=== PATIENT | female | born 1975 | race Caucasian/White ===

== ENCOUNTER 2021-11-06 19:26 | Emergency (ER) | payer OTHER, SELFPAY ==
[2021-11-06 19:38] VITALS: BP 135/78; PULSE 84; RESP 18; TEMP 36.7; O2SAT 99; BMI 23.2
--- NOTE | 2021-11-06 20:24 | CRLHL7_ITS ---
For Patients: As a result of the Cures Act, medical imaging exams and procedure reports are released immediately into your electronic medical record. You may view this report before your referring provider. If you have questions, please contact your health care provider. Indication: Fall from horse, left sacroiliac junction pain.. Technique: Three views of the sacrum and coccyx. Comparison: None. Findings: Bones: Possible subtle nondisplaced fracture of the left sacral ala.. Joint spaces: Joint spaces are preserved. No significant degenerative changes. Soft tissues: Unremarkable. Impression: Possible subtle nondisplaced fracture of the left sacral ala. Consider further evaluation with CT of the pelvis.. Dictated by Shirley Chin MD @ 11/06/2021 9:37:53 PM (Electronically Signed)
--- NOTE | 2021-11-06 20:24 | CRLHL7_ITS ---
For Patients: As a result of the Cures Act, medical imaging exams and procedure reports are released immediately into your electronic medical record. You may view this report before your referring provider. If you have questions, please contact your health care provider. Indication: Fall from horse. Technique: Pelvis 1 view. Comparison: None. Findings: Bones: Alignment is normal. No fractures or bone lesions. Joint spaces: Joint spaces are preserved. No degenerative changes. Soft tissues: Unremarkable. Impression: No findings to explain pain. Dictated by Shirley Chin MD @ 11/06/2021 9:38:53 PM (Electronically Signed)
--- NOTE | 2021-11-06 20:29 | ED.BACK ---
HPI - Back Pain/Injury General Chief Complaint: Back Injury/Pain Stated Complaint: Lower back pain; fell off horse Time Seen by Provider: 11/06/21 20:05 History of Present Illness HPI Narrative: 46-year-old woman presenting with significant other to the emergency department complaint of left buttock area pain. She recently fell from a horse landing on her left buttock area. Has been initially says that she was complaining of tingling S into her legs though she says it was her arms as well. Had trouble getting up being standing afterwards having to make a couple of efforts after laying on the ground trying to get herself together. Did experience nausea. Ears were ringing. She does not believe that there was loss consciousness. She was helmeted and did not hit her head. is some concerns about potential concussion. She is not having back pain. No neck pain. No headache. Any movement really causes tremendous pain in the left buttock area. No abdominal pain. Anxious shaking a little bit and anxiety. Apparently has had tremendous trouble with constipation from opiates historically though with further questioning there are number extenuating circumstances and lots of medications. Does note a history of chronic back pain in the upper ?butt crack? area since a prolonged flight. I do manage to view the video this fall. Looks like the horse got spooked.. Otherwise appears to be relatively minor fall on collapsing onto right hip and right side. Did look to stay on the ground for a time. Related Data Home Medications Medication Instructions Recorded Confirmed No Known Home Medications 11/06/21 11/06/21 Allergies Allergy/AdvReac Type Severity Reaction Status Date / Time No Known Drug Allergies Allergy Verified 11/06/21 19:41 Review of Systems Status of ROS: Reports: 6 or more systems reviewed and unremarkable except as noted in History and below [facility] Medical History Asthma Asymptomatic HIV infection Malignant neoplasm of overlapping sites of right breast in female, estrogen receptor positive Osteopenia Plantar fasciitis Surgical History History of hysterectomy Social History Smoking Status: Never smoker Do you use any of these nicotine containing products: None Second hand tobacco smoke exposure: No How often do you have a drink containing alcohol: never How often do you have six or more drinks on one occasion: Never AUDIT-C Alcohol total score: 0 Non-prescribed substance use: denies use Exam Narrative: Exam Narrative: Pleasant. Clearly uncomfortable. Breathing easily. Generally a little tremulous. Cranial nerves 2-12 intact. Head is atraumatic. Speaking easily. Moving upper extremities without difficulty. Lungs are clear. Cardiovascular with regular rate and rhythm. No pain to palpation of the back nor SI joints. Exquisitely tender to palpation of the left iliosacral junction. No outward sign of trauma on the skin. No low back pain. No coccygeal pain. Reluctant to move the left leg. She is lying on her right side. Does not appear that pain is present in the hip joint itself with assisted rotation of the leg. Abdomen is soft and nontender Has riding boots on. Const: Vital Signs, click to edit/add: Vital Signs - 24 hr 11/06/21 19:38 11/06/21 21:14 11/06/21 23:00 Temperature 98.0 F Pulse Rate [Right Pulse Oximeter] 84 75 73 Respiratory Rate 18 16 Blood Pressure [Le ft Upper Arm] 135/78 123/78 Pulse Oximetry 99 98 99 Oxygen Delivery Me thod Room Air 11/07/21 00:55 Temperature Pulse Rate [Right Pulse Oximeter] 73 Respiratory Rate 16 Blood Pressure [Le ft Upper Arm] 107/90 H Pulse Oximetry 98 Oxygen Delivery Me thod Documenting provider has reviewed patient's vital signs: yes Course Course Hospital Course: She would like some medication for pain. Settled on injection of Dilaudid IM. Reevaluation(s) Reevaluation #1: This did help a good deal with her discomfort. Clearly able to move her legs more. More alert focused ultimately eating some chips. Vital Signs Vital signs: Initial Vital Signs Temperature 98.0 F 11/06/21 19:38 Temperature Source Temporal Artery Scan 11/06/21 19:38 Pulse Rate 84 11/06/21 19:38 Respiratory Rate 18 11/06/21 19:38 Blood Pressure 135/78 11/06/21 19:38 Blood Pressure Mean 97 11/06/21 19:38 Blood Pressure Position Sitting 11/06/21 19:38 Pulse Oximetry 99 11/06/21 19:38 Oxygen Delivery Method 11/06/21 19:38 Vital Signs Temperature 98.0 F 11/06/21 19:38 Pulse Rate 84 11/06/21 19:38 Respiratory Rate 18 11/06/21 19:38 Blood Pressure 135/78 11/06/21 19:38 Pulse Oximetry 99 11/06/21 19:38 Oxygen Delivery Method 11/06/21 19:38 Temperature 98.0 F 11/06/21 19:38 Pulse Rate 73 11/07/21 00:55 Respiratory Rate 16 11/07/21 00:55 Blood Pressure 107/90 H 11/07/21 00:55 Pulse Oximetry 98 11/07/21 00:55 Oxygen Delivery Method 11/06/21 19:38 MDM - Back Pain/Injury MDM Narrative Medical decision making narrative: Did order for pelvic and sacral/coccygeal imaging. Reviewed by me these appeared to be negative. I did have some question over the left sacral ala of a lucency there but I did not appreciate cortical disruption presuming this was bowel overlap. Radiology had some concerns of this area and so sent back for CT scan. I do not think this is unreasonable given the degree of pain she had been demonstrating. CT scan of pelvis ultimately negative Medical Records Attestation: I reviewed the patient's medical records. Discharge Plan Discharge Clinical Impression: Sacral sprain, Contusion, Fall Patient Disposition: Home w/ Parent or Adult Condition: Improved Additional Instructions: Focus on hydration. If you are taking this Percocet, I would consider paring it with a senna-containing twice a day on the days using it. Given what you told me, might also take MiraLax equivalent once or twice daily, 1 capful in 8 oz of liquid. Can take up to 800 mg of ibuprofen per dose or alternatively up to 500 mg naproxen 2 times daily which can be combined with Percocet or either ibuprofen or naproxen could be combined with up to 1000 mg of acetaminophen per dose. Be aware that each tablet of Percocet contains 325 mg of acetaminophen. The stools are be coming particularly hard, do not forget enemas. Obviously avoid traumatizing/irritating the area you landed on in the short term. Use an icing bag to ice the sore area I think 3 times daily over the next few days. Percocet from [facility]. Follow up in about 7 days if just not improving. Prescriptions: No Action No Known Home Medications Follow Up/Referrals: Provider,Not a Local [Primary Care Provider] - Stand Alone Forms: [employer] Info Instructions
--- OUTSIDE RECORDS SUMMARY | 2021-11-06 20:36 | XMS_ITS | Clinical Summary ---
:1975 Author Organization [facility] Address [address] [address] Care Team Providers Name Role Phone Kelli Lewis MD Primary Care Provider [phone] Source Comments You are receiving this document as you are listed as the primary care provider,follow-up provider, or the patient has been referred to you for consultation.This is in compliance with the Medicare and Medicaid EHR Incentive Program,which states Providers who transition their patient to another setting of careor provider of care or refers their patient to another provider of care shouldprovide summarycare record for each transition of care or referral. [facility] Allergies No known active allergies Medications Medication Sig Dispensed Refills Start Date End Date Status ALBUTEROL IN Inhale 1-2 puffs 17 0 12/12/2003 Active every 4 hours as needed. VITAMIN D, Take 1 Capsule by 0 A ctive CHOLECALCIFEROL, OR mouth daily. 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, 01/19/2020 estrogen receptor positive Invasive lobular carcinoma of right breast, stage 1 Overview: Added automatically from request for flor santiago [id number] Malignant neoplasm of overlapping sites of right breas t in female, 12/14/2019 estrogen receptor positive Cancer Staging: Clinical: Stage IA (cT1c , cN0, cM0, G2, ER+, MS+, HER2-) - Unsigned Pathologic: Stage IA (pT1c, pN0(sn), cM0 , G2, ER+, MS+, HER2-) - Signed by Briana Perez MB, [facility] on 02/23/2020 Asymptomatic HIV infection 08/06/2017 Non-seasonal allergic rhinitis due to pollen 8 Plantar fasciitis 11/25/2016 S/P hysterectomy 07/20/2015 Asthma 12/12/2003 Overview: LW Onset: ; Asthma NOS Resolved Problems Problem Noted Date Resolved Date Screening for HIV (human immunodeficiency virus) 02/21/2016 08/06/2017 Screening for cervical cancer 07/25/2015 04/27/2019 Overview: S/p hysterectomy for endometriosis- Pt n o longer has a cx: 2015 NILM Positive for High Risk HPV typ es other than 16 or 18 2019 NILM, HPV negative Plan: No further pap testing indicated. ; Pap test history Encounters Date Type Specialty Care Team Description 10/23/2021 Telemedicine Infectious Disease Mike Hicks, Asym ptomatic HIV infection (HRC) (Primary Dx); Encounter for l eric-term (current) use of medications 10/11/2021 Lab Visit Laboratory Asymptomatic HI V infection (HRC) 09/03/2021 Phone Visit Oncology Jessica Cano Malignant neoplasm of overlapping sites of right breast in female, estrogen receptor positive (HRC) (Primary Dx); MD Puma Osteopenia, uns pecified location from Last 3 Months Immunizations Name Administration Dates Next Due DTP 10/08/1982 HepA Adult (19+ yrs) 10/22/2004 HepB Adult (Engerix-B, 20+ yrs, 3 12/12/2003, 01/28/2001, dose series) Hepatitis B - Surface Antibody 02/29/2016 Positive Influenza IIV4 (Quadrivalent) 0.5mL 01/04/2021, 12/26/2019, 12/15/2018, (13124) 10/20/2017, 02/24/2017, 02/29/2016 OPV, Trivalent (Orimune or tOPV) 10/08/1982 PCV13 (Prevnar) 12/16/2017 PPSV23 (Pneumovax) 12/15/2018 Pfizer (Comirnaty) COVID-19, 12+ Yrs 04/24/2021 [place] Top Pfizer (Comirnaty) COVID-19, 12+ Yrs 10/02/2020, 05/24/2020, 05/03/2020 Purple Top Positive Hepatitis A Titer 02/29/2016 Td 12/13/1999 Tdap 09/06/2015 Typhoid (Typhim Vi, IM) 02/24/2017 Family History Medical History Relation Name Comments Cancer, Other Father Mulitple Myeloma Cataract Father Glaucoma Father Hyperlipidemia Father Depression Mother Thyroid Disorder Mother Cancer, Breast Negative Family History Cancer, Colon Negative Family History Cancer, Ovary Negative Family History Cancer, Pancreatic Negative Family History Cancer, Prostate Negative Family History Diabetes, Type II Negative Family History Relation Name Status Comments Father Alive multiple myeloma Mother Alive Brother Alive younger Maternal Grandfather Maternal Grandmother Paternal Grandfather Paternal Grandmother Social History Tobacco Use Types Packs/Day Years Used Date Smoking Tobacco: Never Smokeless Tobacco: Never Alcohol Use Standard Drinks/Week Comments Yes 7 (1 standard drink = 0.6 oz pure alcoho l) Alcohol Habits Answer Date Recorded How often do you have a drink containing 4 or more times a w [place] 02/01/2020 alcohol? How many drinks containing alcohol do you have Not asked on a typical day when you are drinking? How often do you have six or more drinks on one Not asked occasion? Comment: Not asked Sex Assigned at Date Recorded Not on file Last Filed Vital Signs Vital Sign Reading Time Taken Comments Blood Pressure 114/78 04/24/2021 1:02 PM CDT Pulse 71 04/24/2021 1:02 PM CDT Temperature 36.5 ??C (97.7 ??F) 10/08/2020 4:32 PM CDT Respiratory Rate 16 03/29/2020 12:20 PM INTERACTIVE DIGITAL MEDIA SPECIALIST Oxygen Saturation 100% 03/29/2020 12:20 PM INTERACTIVE DIGITAL MEDIA SPECIALIST Inhaled Oxygen Concentration - - Weight 57.6 kg (127 lb) 06/10/2021 1:32 PM CDT Height 170.2 cm (5' 7) 06/10/2021 1:32 PM CDT Body Mass Index 19.89 06/10/2021 1:32 PM CDT Plan of Treatment Health Maintenance Due Date Last Done Comments MCV4 (1 - Risk start 2-23 1977 months series) Zoster/Shingles (1 of 2) 01/04/1996 HIV: Anal Pap 12/16/2018 12/16/2017 Chlamydia 06/08/2019 06/07/2018, 03/26/2018, 09/22/2017, Additional history exists HIV: Gonorrhea 06/08/2019 06/07/2018, 03/26/2018, 03/26/2018, Additional history exists Adult Preventive Visit 04/08/2021 04/08/2019, 12/16/2017 COVID-19 Vaccine (5 - 06/19/2021 04/24/2021, 10/02/2020, Booster for Pfizer series) 05/24/2020, Additiona l history exists Influenza (#1) 2021 01/04/2021, 12/26/2019, 12/15/2018, Additional history exists Mammogram 12/21/2021 12/21/2020, 11/30/2019, 03/01/2018, Additional history exists Asthma ACT 01/09/2022 01/09/2021, 12/26/2019, 08/06/2017 HIV: Viral Load 04/10/2022 10/11/2021, 12/21/2020, 12/21/2019, Additional history exists Cholesterol 10/11/2022 10/11/2021, 12/21/2020, 12/21/2019, Additional history exists HIV: Syphilis 10/11/2022 10/11/2021, 12/21/2020, 12/21/2019, Additional history exists HIV: TB Screen 10/11/2022 10/11/2021, 12/21/2020, 12/21/2019, Additional history exists HIV: Urinalysis 10/11/2022 10/11/2021, 12/21/2020, 04/11/2020, Additional history exists Pneumococcal (3 - PPSV23) 12/16/2023 12/15/2018, 12/16/2017 DTaP/Tdap/Td (3 - Tdap) 09/05/2025 09/06/2015, 12/13/1999, 10/08/1982 IPV (Polio) Aged Out 10/08/1982 No longer eligib le based on patient 's age to complete this topic HIV: Hep C Completed 02/29/2016 HIV Screening (Preventive Completed 10/23/2021, 10/11/2021 , Services) 10/11/2021, Additional history exists HPV Vaccine Aged Out No longer eligib le based on patient 's age to complete this topic Hib Aged Out No longer eligib le based on patient 's age to complete this topic Medical Devices Implanted Type Area Pipelaying Fitter Device Shelf Model / Identifier Expiration Serial / Date Lot Graft Alloderm 16x20 Rect Perf - [id number] BIOLOGIC Right: Ceannate 10/08/2021 [id number] / Implanted: Qty: 1 on 02/15/2020 by Stephanie Soto MD a t [facility] BREAST / [id number] 295cc - [id number] DEVICE Right: Allergan 06/30/2024 SSF- 295 / Implanted: Qty: 1 on 02/15/2020 by Stephanie Soto MD a t [facility] BREAST [id number] / Explanted: at [facility] (Quantity not on file) NA Procedures Procedure Name Priority Date/Time Associated Diagnosis Comme nts UA MICRO IF Routine 10/11/2021 5:10 PM Asymptomatic HIV Resul ts for this CDT infection (HRC) procedure ar e in the results section. TREPONEMA SCREEN Routine 10/11/2021 4:30 PM Asymptomatic HIV R esults for this CDT infection (HRC) procedure ar e in the results section. HIV-1 RNA QUANT Routine 10/11/2021 4:30 PM Asymptomatic HIV Re sults for this CDT infection (HRC) procedure ar e in the results section. TB QUANTIFERON GOLD Routine 10/11/2021 4:30 PM Asymptomatic HI V Results for this PLUS MITOGEN CDT infection (HRC) procedure ar e in the results section. TB QUANTIFERON GOLD Routine 10/11/2021 4:30 PM Asymptomatic HI V Results for this PLUS TB2 CDT infection (HRC) procedure ar e in the results section. TB QUANTIFERON GOLD Routine 10/11/2021 4:30 PM Asymptomatic HI V Results for this PLUS TB1 CDT infection (HRC) procedure ar e in the results section. TB QUANTIFERON GOLD Routine 10/11/2021 4:30 PM Asymptomatic HI V Results for this PLUS NIL CDT infection (HRC) procedure ar e in the results section. COMPLETE BLOOD Routine 10/11/2021 4:30 PM Asymptomatic HIV Res ults for this COUNT-W/DIFF CDT infection (HRC) procedure ar e in the results section. T CELL RATIO Routine 10/11/2021 4:30 PM Asymptomatic HIV Resul ts for this CDT infection (HRC) procedure ar e in the results section. TB QUANTIFERON GOLD Routine 10/11/2021 4:30 PM Asymptomatic HI V Results for this PLUS CDT infection (HRC) procedure ar e in the results section. LIPID PANEL AND Routine 10/11/2021 4:30 PM Asymptomatic HIV Re sults for this DIRECT LDL(IF NEEDED) CDT infection (HRC) pro cedure are in the results section. HGB A1C Routine 10/11/2021 4:30 PM Asymptomatic HIV Resul ts for this CDT infection (HRC) procedure ar e in the results section. CREATININE / GFR Routine 10/11/2021 4:30 PM Asymptomatic HIV R esults for this CDT infection (HRC) procedure ar e in the results section. CBC AND DIFFERENTIAL Routine 10/11/2021 4:30 PM Asymptomatic H IV Results for this PANEL CDT infection (HRC) procedure ar e in the results section. BUN Routine 10/11/2021 4:30 PM Asymptomatic HIV Resul ts for this CDT infection (HRC) procedure ar e in the results section. BILIRUBIN, TOTAL & Routine 10/11/2021 4:30 PM Asymptomatic HIV Results for this DIRECT CDT infection (HRC) procedure ar e in the results section. AST Routine 10/11/2021 4:30 PM Asymptomatic HIV Resul ts for this CDT infection (HRC) procedure ar e in the results section. ALT (SGPT) Routine 10/11/2021 4:30 PM Asymptomatic HIV Resul ts for this CDT infection (HRC) procedure ar e in the results section. from Last 3 Months Results (ABNORMAL) UA Micro If: Clean Catch (10/11/2021 5:10 PM CDT) [facility] Method Time Signature Urine Color Straw Straw-Yellow 10/11/2021 [facility] 5:14 PM CDT LABORATORY Urine Clarity Clear Clear 10/11/2021 [facility] 5:14 PM CDT LABORATORY Specific <=1.005 (A) 1.005 - 10/11/2021 [facility] Western, 1.030 5:14 PM CDT LABORATORY Urine PH Urine 6.5 5.0 - 8.0 10/11/2021 [facility] 5:14 PM CDT LABORATORY Protein, Negative Neg/Trace 10/11/2021 [facility] Urine Qual 5:14 PM CDT LABORATORY (mg/dL) Glucose Urine Negative Negative 10/11/2021 [facility] Qual (mg/dL) 5:14 PM CDT LABORATORY Ketones, Negative Negative 10/11/2021 [facility] Urine (mg/dL) 5:14 PM CDT LABORATORY Urobilinogen, 0.2 <2.0 10/11/2021 [facility] Urine (EU/dL) 5:14 PM CDT LABORATORY Bilirubin Negative Negative 10/11/2021 [facility] Urine 5:14 PM CDT LABORATORY Blood, Urine Negative Neg/Trace 10/11/2021 [facility] 5:14 PM CDT LABORATORY Nitrite Urine Negative Negative 10/11/2021 [facility] 5:14 PM CDT LABORATORY Leukocyte Negative Negative 10/11/2021 [facility] Est. 5:14 PM CDT LABORATORY Urine Source Clean Catch 10/11/2021 [facility] 5:14 PM CDT LABORATORY Specimen Anatomical Collection Method Collection Time Receive d Time (Source) Location / / Volume Laterality Urine URINE SPECIMEN Non-blood 10/11/2021 5:10 PM 022 5:10 COLLECTION, CLEAN Collection / CDT PM CDT CATCH / Unknown Unknown Mike Hicks MD LAB_1 Performing Organization Address City/State/ZIP Code Phon e Number [facility] [address] [place] [address] HIV-1 RNA Quant by TMA (10/11/2021 4:30 PM CDT) [facility] Method Time Signature HIV Interp Not Not 10/14/2021 [facility] Detected Detected 12:08 PM [facility] CDT HIV Copies <30 <30 10/14/2021 [facility] per/ml copies/mL 12:08 PM [facility] CDT HIV Log <1.47 <1.47 log 10/14/2021 [facility] Copies/ml copies/mL 12:08 PM [facility] LAB CDT Specimen Anatomical Collection Method / Collection Time Recei bruno Time (Source) Location / Volume Laterality Blood Venipuncture / 10/11/2021 4:30 10/11/2021 4:39 Unknown PM CDT PM CDT Narrative [facility] - 10/14/2021 12:08 PM CDT Test performed by Duplication Specialist Mediated Amplification (TMA). Mike Hicks MD LAB_1 Performing Organization Address City/[facility]/ZIP Code Phon e Number [facility] [address] [address] Treponema Screen (10/11/2021 4:30 PM CDT) [facility] Method Time Signature Treponema Screen 0.106 {s_co_ratio 10/11/2021 [facility] Result } 10:16 PM LABORATORY CDT Treponema Screen Non Non 10/11/2021 [facility] Interpretation Reactive Reactive 10:16 PM LABORATORY CDT Specimen Anatomical Collection Method / Collection Time Recei bruno Time (Source) Location / Volume Laterality Blood Venipuncture / 10/11/2021 4:30 10/11/2021 4:39 Unknown PM CDT PM CDT Mike Hicks MD LAB_1 Performing Organization Address City/[facility]/ZIP Code Phon e Number [facility] [address] [place] [address] TB QuantiFERON Gold Plus Mitogen (10/11/2021 4:30 PM CDT) athologist Signature MITOGEN >10.000 IU/mL 10/13/2021 [facility] 3:21 PM CDT LABORATORY Specimen Anatomical Collection Method / Collection Time Recei bruno Time (Source) Location / Volume Laterality Blood Venipuncture / 10/11/2021 4:30 10/11/2021 4:38 Unknown PM CDT PM CDT Mike Hicks MD LAB_1 Performing Organization Address City/State/ZIP Code Phon e Number [facility] [address] [place] [address] TB QuantiFERON Gold Plus TB2 (10/11/2021 4:30 PM CDT) athologist Signature TB2 0.084 IU/mL 10/13/2021 [facility] 3:22 PM CDT LABORATORY Specimen Anatomical Collection Method / Collection Time Recei bruno Time (Source) Location / Volume Laterality Blood Venipuncture / 10/11/2021 4:30 10/11/2021 4:38 Unknown PM CDT PM CDT Mike Hicks MD LAB_1 Performing Organization Address [facility]/ZIP [facility] Phon e Number [facility] [address] [place] [address] TB QuantiFERON Gold Plus TB1 (10/11/2021 4:30 PM CDT) athologist Signature TB1 0.082 IU/mL 10/13/2021 [facility] 3:22 PM CDT LABORATORY Specimen Anatomical Collection Method / Collection Time Recei bruno Time (Source) Location / Volume Laterality Blood Venipuncture / 10/11/2021 4:30 10/11/2021 4:38 Unknown PM CDT PM CDT Mike Hicks MD LAB_1 Performing Organization Address City/[facility] Phon e Number [facility] [address] [place] [address] TB QuantiFERON Gold Plus NIL (10/11/2021 4:30 PM CDT) [facility] Method Time Signature TB QuantiFERON Negative, M. Negative, M. 10/13/2021 [facility] T Gold Plus tuberculosis tuberculosis 3:23 PM LABORATORY Infection NOT Infection NOT CDT likely likely NIL 0.080 IU/mL 10/13/2021 [facility] 3:23 PM LABORATORY CDT TB1-NIL 0.00 IU/mL 10/13/2021 [facility] 3:23 PM LABORATORY CDT TB2-NIL 0.00 IU/mL 10/13/2021 [facility] 3:23 PM LABORATORY CDT Mitogen-NIL 9.92 IU/mL 10/13/2021 [facility] 3:23 PM LABORATORY CDT Specimen Anatomical Collection Method / Collection Time Recei bruno Time (Source) Location / Volume Laterality Blood Venipuncture / 10/11/2021 4:30 10/11/2021 4:38 Unknown PM CDT PM CDT Narrative [facility] - 10/13/2021 3:23 P M CDT The results of the QuantiFERON TB Gold Plus should be correlated clinically. A single positive test in populations with a low prevalence of latent tuberculosis infection (low pretest probability), lazarus uld not be taken as definitive evidence of infection. Decisions regarding retesting should be made on a case by case basis. When TB1-NIL or TB2-NIL is low (<1 IU/mL ), repeat testing may alternate between positive and negative due to measurement imprecision and not necessarily a change in immune response. For more info rmation refer to: https://www.cdc.gov/mmwr/preview/mmwrhtm l/vl2649a8.htm. Mike Hicks MD LAB_1 Performing Organization Address City/State/ZIP Code Phon e Number [facility] [address] [place] [address] (ABNORMAL) Lipid Panel and Direct LDL(If Needed) (10/11/2021 4:30 PM CDT) [facility] Method Time Signature Cholesterol 179 0 - 199 10/11/2021 [facility] mg/dL 6:34 PM CDT LABORATORY Triglyceride 173 (H) <=149 10/11/2021 [facility] mg/dL 6:34 PM CDT LABORATORY HDL Cholesterol 52 >=40 10/11/2021 [facility] mg/dL 6:34 PM CDT LABORATORY LDL, Calculated 92 <130 10/11/2021 [facility] mg/dL 6:34 PM CDT LABORATORY Non HDL Chol, 127 <=159 10/11/2021 [facility] Calculated mg/dL 6:34 PM CDT LABORATORY Cholesterol/HDL 3.4 10/11/2021 [facility] Ratio 6:34 PM CDT LABORATORY Hours Fasting 0 10/11/2021 [facility] 6:34 PM CDT LABORATORY Specimen Anatomical Collection Method / Collection Time Recei bruno Time (Source) Location / Volume Laterality Blood Venipuncture / 10/11/2021 4:30 10/11/2021 4:39 Unknown PM CDT PM CDT Mike Hicks MD LAB_1 Performing Organization Address City/[facility]/ZIP Code Phon e Number [facility] [address] [place] [address] Creatinine / GFR (10/11/2021 4:30 PM CDT) P athologist Signature Creatinine 0.70 0.55 - 10/11/2021 [facility] 1.02 mg/dL 6:34 PM CDT LABORATORY GFR, Estimated >60 >60 10/11/2021 [facility] mL/min/1.7 6:34 PM CDT LABORATORY 3m2 Specimen Anatomical Collection Method / Collection Time Recei bruno Time (Source) Location / Volume Laterality Blood Venipuncture / 10/11/2021 4:30 10/11/2021 4:39 Unknown PM CDT PM CDT Mike Hicks MD LAB_1 Performing Organization Address [facility]/ZIP Code Phon e Number [facility] [address] [place] [address] (ABNORMAL) Complete Blood Count-W/Diff (10/11/2021 4:30 PM CDT) Patholo gist Method Time Signature WBC 4.9 3.5 - 10.5 10/11/2021 [facility] x10(9)/L 4:49 PM CDT LABORATORY RBC 5.07 (H) 3.90 - 10/11/2021 [facility] 5.03 4:49 PM CDT LABORATORY x10(12)/L Hemoglobin 14.6 12.0 - 10/11/2021 [facility] 15.5 g/dL 4:49 PM CDT LABORATORY HCT 44.4 34.9 - 10/11/2021 [facility] 44.5 % 4:49 PM CDT LABORATORY MCV 87.6 80.0 - 10/11/2021 [facility] 100.0 fL 4:49 PM CDT LABORATORY MCH 28.8 27.6 - 10/11/2021 [facility] 33.3 pg 4:49 PM CDT LABORATORY MCHC 32.9 31.5 - 10/11/2021 [facility] 35.2 g/dL 4:49 PM CDT LABORATORY RDW 12.6 11.9 - 10/11/2021 [facility] 15.5 % 4:49 PM CDT LABORATORY Platelets 209 150 - 450 10/11/2021 [facility] x10(9)/L 4:49 PM CDT LABORATORY Automated NRBC 0 <=0 /100 10/11/2021 [facility] WBC 4:49 PM CDT LABORATORY Neutrophil 2.5 1.7 - 7.0 10/11/2021 [facility] Absolute 10(9)/L 4:49 PM CDT LABORATORY Lymphocyte 1.8 1.0 - 4.8 10/11/2021 [facility] Absolute 10(9)/L 4:49 PM CDT LABORATORY Monocytes 0.3 0.2 - 0.9 10/11/2021 [facility] Absolute 10(9)/L 4:49 PM CDT LABORATORY Eosinophil 0.3 0.0 - 0.5 10/11/2021 [facility] Absolute 10(9)/L 4:49 PM CDT LABORATORY Basophil 0.0 0.0 - 0.3 10/11/2021 [facility] Absolute 10(9)/L 4:49 PM CDT LABORATORY Immature Gran % 0.4 0.0 - 0.5 10/11/2021 [facility] % 4:49 PM CDT LABORATORY Specimen Anatomical Collection Method / Collection Time Recei bruno Time (Source) Location / Volume Laterality Blood Venipuncture / 10/11/2021 4:30 10/11/2021 4:39 Unknown PM CDT PM CDT Mike Hicks MD LAB_1 Performing Organization Address City/State/ZIP Code Phon e Number [facility] [address] [place] [address] T Cell Ratio (blood only) (10/11/2021 4:30 PM CDT) P athologist Signature CD3 (T Cells) % 80.6 62.1 - 10/12/2021 [facility] 85.0 % 1:38 PM CDT HOSPITAL CD3 (T Cells) 1,331 500 - 10/12/2021 [facility] Absolute 2,544 /UL 1:38 PM CDT HOSPITAL CD3/CD4 (T 42.5 31.6 - 10/12/2021 [facility] Kempner Cells) % 65.7 % 1:38 PM CDT HOSPITAL CD3/CD4 (T 703 337 - 10/12/2021 [facility] Kempner Cells) 1,687 /UL 1:38 PM CDT HOSPITAL Absolute CD3/CD8 (T 38.0 10.0 - 10/12/2021 [facility] Suppressor/Cyto 40.0 % 1:38 PM CDT HOSPITAL toxic Cells) % CD3/CD8 (T 628 140 - 907 10/12/2021 [facility] Suppressor/Cyto /UL 1:38 PM CDT HOSPITAL toxic Cells) Absolute CD4/CD8 Ratio 1.1 0.8 - 3.7 10/12/2021 [facility] 1:38 PM CDT HOSPITAL Specimen Anatomical Collection Method / Collection Time Recei bruno Time (Source) Location / Volume Laterality Blood Venipuncture / 10/11/2021 4:30 10/11/2021 4:39 Unknown PM CDT PM CDT Mike Hicks MD LAB_1 Performing Organization Address [facility] e Number [address] [address] Bilirubin, Total & Direct (10/11/2021 4:30 PM CDT) athologist Signature Bilirubin, 0.3 0.2 - 1.2 10/11/2021 [facility] Total mg/dL 6:34 PM CDT LABORATORY Bilirubin, 0.1 0.0 - 0.5 10/11/2021 [facility] Direct mg/dL 6:34 PM CDT LABORATORY Specimen Anatomical Collection Method / Collection Time Recei bruno Time (Source) Location / Volume Laterality Blood Venipuncture / 10/11/2021 4:30 10/11/2021 4:39 Unknown PM CDT PM CDT Mike Hicks MD LAB_1 Performing Organization Address City/State/ZIP Code [facility] e Number [facility] [address] [place] [address] Hgb A1c (10/11/2021 4:30 PM CDT) athologist Signature Hemoglobin A1C 5.1 <=5.6 % 10/11/2021 [facility] 6:09 PM CDT LABORATORY Specimen Anatomical Collection Method / Collection Time Recei bruno Time (Source) Location / Volume Laterality Blood Venipuncture / 10/11/2021 4:30 10/11/2021 4:39 Unknown PM CDT PM CDT Narrative [facility] - 10/11/2021 6:09 PM CDT This Hemoglobin A1c assay has significan t interference with elevated Hemoglobin (HbF) and other Hemoglobin variants. In patients with results that do not correlate clinically, contact the laboratory for f urther direction. Mike Hicks MD LAB_1 Performing Organization Address [facility] Code Phon e Number [facility] [address] [place] [address] ALT (SGPT) (10/11/2021 4:30 PM CDT) athologist Signature ALT (SGPT) 20 0 - 55 U/L 10/11/2021 [facility] 6:34 PM CDT LABORATORY Specimen Anatomical Collection Method / Collection Time Recei bruno Time (Source) Location / Volume Laterality Blood Venipuncture / 10/11/2021 4:30 10/11/2021 4:39 Unknown PM CDT PM CDT Mike Hicks MD LAB_1 Performing Organization Address [facility] Phon e Number [facility] [address] [place] [address] AST (10/11/2021 4:30 PM CDT) athologist Signature AST (SGOT) 26 10 - 40 U/L 10/11/2021 [facility] 6:34 PM CDT LABORATORY Specimen Anatomical Collection Method / Collection Time Recei bruno Time (Source) Location / Volume Laterality Blood Venipuncture / 10/11/2021 4:30 10/11/2021 4:39 Unknown PM CDT PM CDT Mike Hicks MD LAB_1 Performing Organization Address [facility] Code Phon e Number [facility] [address] [place] [address] BUN (10/11/2021 4:30 PM CDT) athologist Signature BUN 15 7 - 26 10/11/2021 [facility] mg/dL 6:34 PM CDT LABORATORY Specimen Anatomical Collection Method / Collection Time Recei bruno Time (Source) Location / Volume Laterality Blood Venipuncture / 10/11/2021 4:30 10/11/2021 4:39 Unknown PM CDT PM CDT Mike Hicks MD LAB_1 Performing Organization Address City/State/ZIP Code Phon e Number [facility] [address] [place], [place] [address] from Last 3 Months Insurance Payer Benefit Plan / Subscriber ID Effective Dates Phone Addre ss Type Group AETNA AETNA [id number] 2018-Present [phone] [address] [place] [address] Cristiana Castillo Personal/Family Self 1975 [address] (Home) [facility] [phone] [place], [place] (Work) [phone] Cristiana Castillo Personal/Family Self 1975 [address] (Home) [place] [address] Care Teams Thumb Sewer Relationship Specialty Start Date End Date Kelli Lewis MD PCP - General Family Practice 04/24/[address] [place] [address]
--- OUTSIDE RECORDS SUMMARY | 2021-11-06 20:37 | XMS_ITS | Encounter Summary ---
:1975 Author Organization [facility] Address [address], [place] [address] Care Team Providers Name Role Phone Mary Kay Lr APRN, PARIMUTUEL TICKET CHECKER Primary Care Provider [phone] Encounter Details Date Type Department Care Team Description 11/28/2020 Notes/Orders [facility] Vance Martinez MD Center at [address] Chemo [place] [address] [place] [address] [place] [address] Social History Tobacco Use Types Packs/Day Years Used Date Smoking Tobacco: Never Smokeless Tobacco: Never Alcohol Use Standard Drinks/Week Comments Yes 7 (1 standard drink = 0.6 oz pure alcoho l) Alcohol Habits Answer Date Recorded How often do you have a drink containing 4 or more times a w inupiat 02/01/2020 alcohol? How many drinks containing alcohol do you have Not asked on a typical day when you are drinking? How often do you have six or more drinks on one Not asked occasion? Comment: Not asked Sex Assigned at Date Recorded Not on file documented as of this encounter Plan of Treatment Not on filedocumented as of this encounter Visit Diagnoses Not on filedocumented in this encounter Care Teams International Accounting Manager Relationship Specialty Start Date End Date Mary aKy Lr, MARQUES, PARIMUTUEL TICKET CHECKER PCP - General Nurse Practitioner 12/01/17 04/23/21 [address] [place] [address] documented as of this encounter
--- OUTSIDE RECORDS SUMMARY | 2021-11-06 20:37 | XMS_ITS | Encounter Summary ---
:1975 Author Organization [facility] Address [address] [place] [address] Care Team Providers Name Role Phone Kelli Lewis MD Primary Care Provider [phone] Reason for Visit Reason Comments FOLLOW-UP,HIV Video Visit Encounter Details Date Type Department Care Team Description 10/23/2021 [facility] Mike Hicks Asy mptomatic HIV infection (HRC) (Primary Dx); 401 Infectious MD Encounter for long-term (current) use of medications Disease [address] [place] [phone] Social History Tobacco Use Types Packs/Day Years Used Date Smoking Tobacco: Never Smokeless Tobacco: Never Alcohol Use Standard Drinks/Week Comments Yes 7 (1 standard drink = 0.6 oz pure alcoho l) Alcohol Habits Answer Date Recorded How often do you have a drink containing 4 or more times a w salamatof 02/01/2020 alcohol? How many drinks containing alcohol do you have Not asked on a typical day when you are drinking? How often do you have six or more drinks on one Not asked occasion? Comment: Not asked Sex Assigned at Date Recorded Not on file documented as of this encounter Progress Notes Mike Hicks MD - 10/23/2021 11:10 AM CDT This patient comes in for follow up for HIV. History of present illness This patient is a 46-year-old generally healthy female who required a life insurance exam which cameback with a positive test result for HIV. She went to her clinic for further evaluation where she had a positive fourth-generation HIV test, positive confirmatory test and a viral load of 38,000. She began therapy with genvoya on March 192016 and was switched to biktarvy in 06/2018.. She denies any missed doses. She denies any side effects to this treatment. She has a history of breast cancer. She had a unilateral mastectomy in February 2020. She had a reconstruction at that time. She completed her radiation at the end of May 2020. She is now on letrozolewhich will continue for 5-10 years. She denies any fevers or chills. No night sweats. Her weight has been stable. She has a good appetite. No abdominal pain or diarrhea. She had COVID earlier in the year. Social history They recently bought a farm [place] of the [facility] where she they have their horses. Her also has HIV. He apparently has a history of drug use and other sexual partners in the past. She previously has spent time in [place], [place], [place] and [place]. 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 Patient Active Problem List Diagnosis S/P hysterectomy Asthma (HRC) Plantar fasciitis Asymptomatic HIV infection (HRC) Non-seasonal allergic rhinitis due to pollen Malignant neoplasm of overlapping sites of right breast in female, estrogen receptor positive (HRC) Invasive lobular carcinoma of right breast, stage 1 (HRC) Malignant neoplasm of upper-inner quadrant of right breast in female, estrogen receptor positive (HRC) Osteopenia Family history Her grandmother had amyotrophic lateral sclerosis. Her father is going through treatment for multiple myeloma. Her mother has depression. ALL: NKDA There were no vitals taken for this visit. As this was a video visit. She is answering questions appropriately over the phone. She is in no acute distress. LABS: HIV fourth-generation test positive HIV confirmation positive HIV mutation analysis negative HIV integrase genotype negative Toxoplasma serology negative CMV serology positive Tuberculosis gold negative Hep C negative Hep B immune Hep A immune Component Latest Ref Rng & Units 10/11/2021 T3 % 62.1 - 85.0 % 80.6 T3 Absolute 500 - 2,544 /UL 1,331 T4 % 31.6 - 65.7 % 42.5 T4 Absolute 337 - 1,687 /UL 703 T8 % 10.0 - 40.0 % 38.0 T8 Absolute 140 - 907 /UL 628 T4/T8 Ratio 0.8 - 3.7 1.1 HIV Interpretation Not Detected Not Detected Copies mL <30 copies/mL <30 Logcopies mL <1.47 log copies/mL <1.47 A/P 46 -year-old female with HIV, detected on a life insurance exam She is tolerating treatment with biktarvy well. She has obtained full viral suppression with a CD4 count of 703. No recent infections. She likely acquired the infection from her who was also positive. She has had a hysterectomy. Breast cancer This was found on routine mammogram. She has had surgery and reconstruction. She has finished her chemotherapy. She continues on letrozole. PLAN: Continue biktarvy Follow-up in 6 months with labs prior to the visit Greater than 15 minutes are spent in review of the chart and in discussion with the patient. Mike Hicks MD 10/23/2021 documented in this encounter Plan of Treatment Not on filedocumented as of this encounter Visit Diagnoses Diagnosis Asymptomatic HIV infection (HRC) - Prima ry Asymptomatic human immunodeficiency viru s (HIV) infection status Encounter for long-term (current) use of medications Encounter for long-term (current) use of other medications documented in this encounter Care Teams Washhouse Worker Relationship Specialty Start Date End Date Kelli Lewis MD PCP - General Family Practice 04/24/[address] [place] [address] documented as of this encounter
--- OUTSIDE RECORDS SUMMARY | 2021-11-06 20:37 | XMS_ITS | Encounter Summary ---
:1975 Author Organization [facility] Address [address] [place] [address] Care Team Providers Name Role Phone Mary Kay Lr APRN, ANIMAL ATTENDANT Primary Care Provider [phone] Encounter Details Date Type Department Care Team Description 12/21/2020 Lab Visit [facility] HIV infection Laboratory (HRC) [address] [place] [address] Social History Tobacco Use Types Packs/Day Years Used Date Smoking Tobacco: Never Smokeless Tobacco: Never Alcohol Use Standard Drinks/Week Comments Yes 7 (1 standard drink = 0.6 oz pure alcoho l) Alcohol Habits Answer Date Recorded How often do you have a drink containing 4 or more times a w [place] 02/01/2020 alcohol? How many drinks containing alcohol do you have Not asked on a typical day when you are drinking? How often do you have six or more drinks on one Not asked occasion? Comment: Not asked Sex Assigned at Date Recorded Not on file documented as of this encounter Plan of Treatment Not on filedocumented as of this encounter Procedures Procedure Name Priority Date/Time Associated Diagnosis Comme nts UA MICRO IF Routine 12/21/2020 12:25 Asymptomatic HIV Results for this PM [employer] infection (HRC) procedure ar e in the results section. HIV-1 RNA QUANT Routine 12/21/2020 12:07 Asymptomatic HIV Resu lts for this PM [employer] infection (HRC) procedure ar e in the results section. CBC AND DIFFERENTIAL Routine 12/21/2020 12:07 Asymptomatic HIV Results for this PANEL PM [employer] infection (HRC) procedure ar e in the results section. TREPONEMA SCREEN Routine 12/21/2020 12:07 Asymptomatic HIV Res ults for this PM [employer] infection (HRC) procedure ar e in the results section. TB QUANTIFERON GOLD Routine 12/21/2020 12:07 Asymptomatic HIV Results for this PLUS PM [employer] infection (HRC) procedure ar e in the results section. TB QUANTIFERON GOLD Routine 12/21/2020 12:07 Asymptomatic HIV Results for this PLUS MITOGEN PM [employer] infection (HRC) procedure ar e in the results section. TB QUANTIFERON GOLD Routine 12/21/2020 12:07 Asymptomatic HIV Results for this PLUS TB2 PM [employer] infection (HRC) procedure ar e in the results section. TB QUANTIFERON GOLD Routine 12/21/2020 12:07 Asymptomatic HIV Results for this PLUS TB1 PM [employer] infection (HRC) procedure ar e in the results section. TB QUANTIFERON GOLD Routine 12/21/2020 12:07 Asymptomatic HIV Results for this PLUS NIL PM [employer] infection (HRC) procedure ar e in the results section. LIPID PANEL AND Routine 12/21/2020 12:07 Asymptomatic HIV Resu lts for this DIRECT LDL(IF NEEDED) PM [employer] infection (HRC) pro cedure are in the results section. CREATININE / GFR Routine 12/21/2020 12:07 Asymptomatic HIV Res ults for this PM [employer] infection (HRC) procedure ar e in the results section. COMPLETE BLOOD Routine 12/21/2020 12:07 Asymptomatic HIV Resul ts for this COUNT-W/DIFF PM [employer] infection (HRC) procedure ar e in the results section. T CELL RATIO Routine 12/21/2020 12:07 Asymptomatic HIV Results for this PM [employer] infection (HRC) procedure ar e in the results section. BILIRUBIN, TOTAL & Routine 12/21/2020 12:07 Asymptomatic HIV R esults for this DIRECT PM [employer] infection (HRC) procedure ar e in the results section. HGB A1C Routine 12/21/2020 12:07 Asymptomatic HIV Results for this PM [employer] infection (HRC) procedure ar e in the results section. ALT (SGPT) Routine 12/21/2020 12:07 Asymptomatic HIV Results for this PM [employer] infection (HRC) procedure ar e in the results section. AST Routine 12/21/2020 12:07 Asymptomatic HIV Results for this PM [employer] infection (HRC) procedure ar e in the results section. BUN Routine 12/21/2020 12:07 Asymptomatic HIV Results for this PM [employer] infection (HRC) procedure ar e in the results section. documented in this encounter Results UA Micro If (ONLY FOR PTS ON TENOFOVIR OR TRUVADA) (12/21/2020 12:25 PM [employer]) [facility] Method Time Signature Urine Color Straw Straw-Yellow 12/21/2020 [facility] 12:42 PM LABORATORY [employer] Urine Clarity Clear Clear 12/21/2020 [facility] 12:42 PM LABORATORY [employer] Specific 1.010 1.005 - 12/21/2020 [facility] [place], 1.030 12:42 PM LABORATORY Urine [employer] PH Urine 7.0 5.0 - 8.0 12/21/2020 [facility] 12:42 PM LABORATORY [employer] Protein, Negative Neg/Trace 12/21/2020 [facility] Urine Qual 12:42 PM LABORATORY (mg/dL) [employer] Glucose Urine Negative Negative 12/21/2020 [facility] Qual (mg/dL) 12:42 PM LABORATORY [employer] Ketones, Negative Negative 12/21/2020 [facility] Urine (mg/dL) 12:42 PM LABORATORY [employer] Urobilinogen, 0.2 <2.0 12/21/2020 [facility] Urine (EU/dL) 12:42 PM LABORATORY [employer] Bilirubin Negative Negative 12/21/2020 [facility] Urine 12:42 PM LABORATORY [employer] Blood, Urine Negative Neg/Trace 12/21/2020 [facility] 12:42 PM LABORATORY [employer] Nitrite Urine Negative Negative 12/21/2020 [facility] 12:42 PM LABORATORY [employer] Leukocyte Negative Negative 12/21/2020 [facility] Est. 12:42 PM LABORATORY [employer] Urine Source Clean Catch 12/21/2020 [facility] 12:42 PM LABORATORY [employer] Specimen Anatomical Collection Method Collection Time Receive d Time (Source) Location / / Volume Laterality Urine URINE SPECIMEN Non-blood 12/21/2020 12:25 COLLECTION, CLEAN Collection / PM [employer] 12:[address] CATCH / Unknown Unknown Mike Hicks MD LAB_1 Performing Organization Address City/State/ZIP Code Phon e Number [facility] [address] [place] [address] TB QuantiFERON Gold Plus Mitogen (12/21/2020 12:07 PM [employer]) athologist Signature MITOGEN >10.000 IU/mL 12/24/2020 [facility] 10:08 AM [facility] [facility] Specimen Anatomical Collection Method / Collection Time Recei bruno Time (Source) Location / Volume Laterality Blood Venipuncture / 12/21/2020 12:07 1 Unknown PM [employer] 12:12 PM [employer] Mike Hicks MD LAB_1 Performing Organization Address [facility] Phon e Number [facility] [address] [place] [address] TB QuantiFERON Gold Plus TB2 (12/21/2020 12:07 PM [employer]) athologist Signature TB2 0.097 IU/mL 12/24/2020 [facility] 10:08 AM [employer] [facility] LAB[facility] Specimen Anatomical Collection Method / Collection Time Recei bruno Time (Source) Location / Volume Laterality Blood Venipuncture / 12/21/2020 12:07 1 Unknown PM [employer] 12:12 PM [employer] Mike Hicks MD LAB_1 Performing Organization Address [facility] Phon e Number [facility] [address] [place] [address] TB QuantiFERON Gold Plus TB1 (12/21/2020 12:07 PM [employer]) athologist Signature TB1 0.090 IU/mL 12/24/2020 [facility] 10:08 AM [employer] [facility] LAB[facility] Specimen Anatomical Collection Method / Collection Time Recei bruno Time (Source) Location / Volume Laterality Blood Venipuncture / 12/21/2020 12:07 1 Unknown PM [employer] 12:12 PM [employer] Mike Hicks MD LAB_1 Performing Organization Address [facility] Phon e Number [facility] [address] [place] [address] TB QuantiFERON Gold Plus NIL (12/21/2020 12:07 PM [employer]) [facility] Method Time Signature TB QuantiFERON Negative, M. Negative, M. 12/24/2020 [facility] Gold Plus tuberculosis tuberculosis 10:09 AM LABORATORY Infection NOT Infection NOT [employer] likely likely NIL 0.069 IU/mL 12/24/2020 [facility] 10:09 AM LABORATORY [employer] TB1-NIL 0.02 IU/mL 12/24/2020 [facility] 10:09 AM LABORATORY [employer] TB2-NIL 0.03 IU/mL 12/24/2020 [facility] 10:09 AM LABORATORY [employer] Mitogen-NIL 9.93 IU/mL 12/24/2020 [facility] 10:09 AM LABORATORY [employer] Specimen Anatomical Collection Method / Collection Time Recei bruno Time (Source) Location / Volume Laterality Blood Venipuncture / 12/21/2020 12:07 1 Unknown PM [employer] 12:12 PM [employer] Narrative [facility] - 12/24/2020 10:09 AM [employer] Nil ?TB1-Nil ? TB2-Nil ?Mitogen-Nil ??Result ?Interpretation (IU/ml) ??(IU/mL) ? (IU/mL) ?(IU/mL) <=8.0 ? >=0.35 & ? Any ?Any ?Positive ?M. tuberculosis ?>=25% Nil ?infection likely <=8.0 ? Any ?>=0.35 & ? Any ?Positive ?M. tuberculosis ? >=25% Nil ? infection likely <=8.0 ? <0.35 or ? <0.35 or ? >=0.50 ? Negative ?M. tuberculosis ?>=0.35 & ? >=0.35 & ?infection NOT ?<25% Nil ? <25% Nil ?likely <=8.0 ? <0.35 or ? <0.35 or ? <0.50 ? Indeterminate ??M. tuberculosis ?>=0.35 & ? >=0.35 & ?infection cannot ?<25% Nil ? <25% Nil ?be determined >8.0 ?Any ?Any ?Any ? Indeterminate ??M. tuberculosis ? infection cannot ? be determined. Important: Diagnosing or excluding tuber culosis disease, and assessing the probability of LTBI, requires a combination of epidemiological, historical, medical, and diagnostic findings that should be kishor en into account when interpreting QFT-Pl us results. See general guidance on the diagnosis and treatment of TB disease and LTBI (https://www.cdc.gov/tb/publications/guidelines/default.htm). The magnitude of the measured IFN-gamma level cannot be correlated to stage or degree of infection, level of immune responsiveness, or likelihood for progression to active disease. A positive TB respons e in persons who are negative to Mitogen is rare, but has been seen in patients with TB disease. This indicates the IFN-gamma response to TB antigens is greater than that to Mitogen, which is possible a s the level of Mitogen does not maximall y stimulate IFN-gamma production by lymphocytes. Mike Hicks MD LAB_1 Performing Organization Address City/State/ZIP Code Phon e Number [facility] [address] [place] [address] (ABNORMAL) Complete Blood Count-W/Diff (12/21/2020 12:07 PM [employer]) [facility] Method Time Signature WBC 4.6 3.5 - 10.5 12/21/2020 [facility] x10(9)/L 12:18 PM [employer] [facility] LAB[facility] RBC 5.07 (H) 3.90 - 12/21/2020 [facility] 5.03 12:18 PM [employer] LAB[facility]ORY x10(12)/L Hemoglobin 14.5 12.0 - 12/21/2020 [facility] 15.5 g/dL 12:18 PM [employer] [facility] HCT 45.0 (H) 34.9 - 12/21/2020 [facility] 44.5 % 12:18 PM [employer] [facility] MCV 88.8 80.0 - 12/21/2020 [facility] 100.0 fL 12:18 PM [facility] [facility] MCH 28.6 27.6 - 12/21/2020 [facility] 33.3 pg 12:18 PM [employer] [facility] MCHC 32.2 31.5 - 12/21/2020 [facility] 35.2 g/dL 12:18 PM [facility] [facility] RDW 12.4 11.9 - 12/21/2020 [facility] 15.5 % 12:18 PM [facility] [facility] Platelets 246 150 - 450 12/21/2020 [facility] x10(9)/L 12:18 PM [facility] [facility] Automated NRBC 0 <=0 /100 12/21/2020 [facility] WBC 12:18 PM [employer] [facility] Neutrophil 2.3 1.7 - 7.0 12/21/2020 [facility] Absolute 10(9)/L 12:18 PM [facility] [facility] Lymphocyte 1.7 1.0 - 4.8 12/21/2020 [facility] Absolute 10(9)/L 12:18 PM [facility] [facility] Monocytes 0.4 0.2 - 0.9 12/21/2020 [facility] Absolute 10(9)/L 12:18 PM [employer] [facility] Eosinophil 0.1 0.0 - 0.5 12/21/2020 [facility] Absolute 10(9)/L 12:18 PM [facility] [facility] Basophil 0.0 0.0 - 0.3 12/21/2020 [facility] Absolute 10(9)/L 12:18 PM [employer] [facility] Immature Gran % 0.7 (H) 0.0 - 0.5 12/21/2020 [facility] % 12:18 PM [employer] [facility] LABORATORY Specimen Anatomical Collection Method / Collection Time Recei bruno Time (Source) Location / Volume Laterality Blood Venipuncture / 12/21/2020 12:07 1 Unknown PM [employer] 12:12 PM [employer] Mike Hicks MD LAB_1 Performing Organization Address City/[facility]/ZIP Code Phon e Number [facility] [address] [place] [address] Treponema Screen (12/21/2020 12:07 PM [employer]) [facility] Method Time Signature Treponema Screen 0.080 {s_co_ratio 12/21/2020 [facility] Result } 5:00 PM [facility] [facility] LAB[facility] Treponema Screen Non Non 12/21/2020 [facility] Interpretation Reactive Reactive 5:00 PM [facility] [facility] Specimen Anatomical Collection Method / Collection Time Recei bruno Time (Source) Location / Volume Laterality Blood Venipuncture / 12/21/2020 12:07 1 Unknown PM [employer] 12:12 PM [employer] Mike Hicks MD LAB_1 Performing Organization Address City/State/ZIP Code Phon e Number [facility] [address] [place] [address] (ABNORMAL) T Cell Ratio (blood only) (12/21/2020 12:07 PM [employer]) athologist Signature CD3 (T Cells) 80.4 62.1 - 12/22/2020 [facility] % 85.0 % 11:16 AM [facility] CD3 (T Cells) 1,143 500-2,544 12/22/2020 [facility] Absolute /UL 11:16 AM [facility] CD3/CD4 (T 40.0 31.6 - 12/22/2020 [facility] Muir Cells) 65.7 % 11:16 AM [facility] % CD3/CD4 (T 569 337-1,687 12/22/2020 [facility] Muir Cells) /UL 11:16 AM [facility] Absolute CD3/CD8 (T 41.9 (H) 10.0 - 12/22/2020 [facility] Suppressor/Cyt 40.0 % 11:16 AM [facility] otoxic Cells) % CD3/CD8 (T 596 140 - 907 12/22/2020 [facility] Suppressor/Cyt /UL 11:16 AM [facility] otoxic Cells) Absolute CD4/CD8 Ratio 1.0 0.8 - 3.7 12/22/2020 [facility] 11:16 AM [facility] Specimen Anatomical Collection Method / Collection Time Recei bruno Time (Source) Location / Volume Laterality Blood Venipuncture / 12/21/2020 12:07 Unknown PM [employer] 12:12 PM [employer] Mike Hicks MD LAB_1 Performing Organization Address City/State/[place] [address] (ABNORMAL) Lipid Panel and Direct LDL(If Needed) (12/21/2020 12:07 PM [employer]) [facility] gist Method Time Signature Cholesterol 196 0 - 199 12/21/2020 [facility] mg/dL 3:04 PM [facility] [facility] Triglyceride 170 (H) <=149 12/21/2020 [facility] mg/dL 3:04 PM [facility] [facility] HDL Cholesterol 60 >=40 12/21/2020 [facility] mg/dL 3:04 PM [facility] [facility] LDL, Calculated 102 <130 12/21/2020 [facility] mg/dL 3:04 PM [facility] [facility] Non HDL Chol, 136 <=159 12/21/2020 [facility] Calculated mg/dL 3:04 PM [facility] [facility] Cholesterol/HDL 3.3 12/21/2020 [facility] Ratio 3:04 PM [facility] [facility] Hours Fasting N/A 12/21/2020 [facility] 3:04 PM [facility] [employer] [facility] Specimen Anatomical Collection Method / Collection Time Recei bruno Time (Source) Location / Volume Laterality Blood Venipuncture / 12/21/2020 12:07 1 Unknown PM [employer] 12:12 PM [employer] Mike Hicks MD LAB_1 Performing Organization Address City/State/ZIP Code Phon e Number [facility] [address] [place] [address] HIV-1 RNA Quant by TMA (12/21/2020 12:07 PM [employer]) Patholo gist Method Time Signature HIV Interp Not Not 12/26/2020 ON LICENSE OF [facility] Detected Detected 12:07 PM [facility] [employer] HIV Copies <30 <30 12/26/2020 [facility] LICENSE OF [facility] per/ml copies/mL 12:07 PM [facility] [employer] HIV Log <1.47 <1.47 log 12/26/2020 [facility] LICENSE OF [facility] Copies/ml copies/mL 12:07 PM [facility] [employer] Specimen Anatomical Collection Method / Collection Time Recei bruno Time (Source) Location / Volume Laterality Blood Venipuncture / 12/21/2020 12:07 1 Unknown PM [employer] 12:12 PM [employer] Narrative [facility] - 12/26/2020 12:07 PM [employer] Test performed by Analytical Lead Mediated Amplification (TMA). Mike Hicks MD LAB_1 Performing Organization Address City/[facility] Code Phon e Number [facility] [address] [address] Hgb A1c (12/21/2020 12:07 PM [employer]) P athologist Signature Hemoglobin A1C 4.9 <=5.6 % 12/21/2020 [facility] 2:11 PM [facility] [facility] Specimen Anatomical Collection Method / Collection Time Recei bruno Time (Source) Location / Volume Laterality Blood Venipuncture / 12/21/2020 12:07 1 Unknown PM [employer] 12:12 PM [employer] Narrative [facility] - 12/21/2020 2:11 PM [employer] This Hemoglobin A1c assay has significan t interference with elevated Hemoglobin (HbF) and other Hemoglobin variants. In patients with results that do not correlate clinically, contact the laboratory for f urther direction. Mike Hicks MD LAB_1 Performing Organization Address City/[facility]/ZIP Code Phon [facility] Number [facility] [address] [place] [address] Creatinine / GFR (12/21/2020 12:07 PM [employer]) athologist Signature Creatinine 0.70 0.55 - 12/21/2020 [facility] 1.02 mg/dL 3:04 PM [facility] [facility] GFR, Estimated >60 >60 12/21/2020 [facility] mL/min/1.7 3:04 PM [facility] [facility] 3m2 Specimen Anatomical Collection Method / Collection Time Recei bruno Time (Source) Location / Volume Laterality Blood Venipuncture / 12/21/2020 12:07 1 Unknown PM [employer] 12:12 PM [employer] Mike Hicks MD LAB_1 Performing Organization Address [facility]/ZIP Code Phon e Number [facility] [address] [place] [address] BUN (12/21/2020 12:07 PM [employer]) athologist Signature BUN 13 7 - 26 12/21/2020 [facility] mg/dL 3:04 PM [facility] [facility] Specimen Anatomical Collection Method / Collection Time Recei bruno Time (Source) Location / Volume Laterality Blood Venipuncture / 12/21/2020 12:07 1 Unknown PM [employer] 12:12 PM [employer] Mike Hicks MD LAB_1 Performing Organization Address [facility] Phon e Number [facility] [address] [place] [address] Bilirubin, Total & Direct (12/21/2020 12:07 PM [employer]) athologist Signature Bilirubin, 0.6 0.2 - 1.2 12/21/2020 [facility] Total mg/dL 3:04 PM [facility] [employer] [facility] Bilirubin, 0.2 0.0 - 0.5 12/21/2020 [facility] Direct mg/dL 3:04 PM [facility] [facility] Specimen Anatomical Collection Method / Collection Time Recei bruno Time (Source) Location / Volume Laterality Blood Venipuncture / 12/21/2020 12:07 1 Unknown PM [employer] 12:12 PM [employer] Mike Hicks MD LAB_1 Performing Organization Address [facility]/ZIP Code Phon e Christine [facility] [address] [place] [address] AST (12/21/2020 12:07 PM [employer]) P athologist Signature AST (SGOT) 21 10 - 40 U/L 12/21/2020 [facility] 3:04 PM [facility] [facility] Specimen Anatomical Collection Method / Collection Time Recei bruno Time (Source) Location / Volume Laterality Blood Venipuncture / 12/21/2020 12:07 1 Unknown PM [employer] 12:12 PM [employer] Mike Hicks MD LAB_1 Performing Organization Address [facility] Phon e Number [facility] [address] [place] [address] ALT (SGPT) (12/21/2020 12:07 PM [employer]) P athologist Signature ALT (SGPT) 22 0 - 55 U/L 12/21/2020 [facility] 3:04 PM [facility] [facility] Specimen Anatomical Collection Method / Collection Time Recei bruno Time (Source) Location / Volume Laterality Blood Venipuncture / 12/21/2020 12:07 1 Unknown PM [employer] 12:12 PM [employer] Mike Hicks MD LAB_1 Performing Organization Address [facility] Phon e Christine [facility] [address] [place] [address] documented in this encounter Visit Diagnoses Diagnosis Asymptomatic HIV infection (HRC) Asymptomatic human immunodeficiency viru s (HIV) infection status documented in this encounter Care Teams Financial Report Service Sales Agent Relationship Specialty Start Date End Date Mary Kay Lr, PRIMARY CARE PHYSICIAN, ANIMAL ATTENDANT PCP - General Nurse Practitioner 12/01/17 04/23/21 [address] [place] [address] documented as of this encounter
--- OUTSIDE RECORDS SUMMARY | 2021-11-06 20:37 | XMS_ITS | Encounter Summary ---
:1975 Author Organization [facility] Address [address] [place] [address] Care Team Providers Name Role Phone Mary Kay Lr APRN, INSURANCE CLAIMS ASSISTANT Primary Care Provider [phone] Reason for Visit Procedure/Equipment (Routine) - Incomplete Specialty Diagnoses / Procedures Referred By Contact Refer red To Contact Diagnoses Malignant neoplasm of overlapping sites of right breast in female, estrogen receptor positive (HRC) Encounter for screening mammogram for malignant neoplasm of breast Lori Ramos APRN, Procedures MM Mammogram Screening Lt W 3D Adelfo W CAD INSURANCE CLAIMS ASSISTANT [address] [place] [address] Referral ID Status Reason Start Date Expiration Date Visits V isits Requested Authorized [id number] Incomplete 11/28/2020 02/27/2022 1 1 Encounter Details Date Type Department Care Team Description 12/11/2020 [facility] Malignant lesli plasm of overlapping sites of right breast in female, estrogen receptor positive (HRC); Procedure Casey Cat APRN, Encounter for screening mammogram for malignant neoplasm of breast Mammography INSURANCE CLAIMS ASSISTANT [address] [place], [place] [address] [place], [place] [phone] [address] Social History Tobacco Use Types Packs/Day Years Used Date Smoking Tobacco: Never Smokeless Tobacco: Never Alcohol Use Standard Drinks/Week Comments Yes 7 (1 standard drink = 0.6 oz pure alcoho l) Alcohol Habits Answer Date Recorded How often do you have a drink containing 4 or more times a w [place] 02/01/2020 alcohol? How many drinks containing alcohol [...] Name Priority Date/Time Associated Diagnosis Comme nts MM MAMMOGRAM Routine 12/21/2020 11:42 AM Malignant neoplasm Re sults for this SCREENING LT W 3D WHITE SUGAR PAN TANK OPERATOR of overlapping sites pr ocedure are in ADELFO W CAD of right breast in the resul ts female, estrogen section. receptor positive (HRC) Encounter for screening mammogram for malignant neoplasm of breast documented in this encounter Results MM Mammogram Screening Lt W 3D Adelfo W CAD (12/21/2020 11:42 AM WHITE SUGAR PAN TANK OPERATOR) Anatomical Region Laterality Modality Breast Left Mammography Specimen (Source) Anatomical Location Collection Method / Collectio n Time Received Time / Laterality Volume Impressions 12/21/2020 2:59 PM WHITE SUGAR PAN TANK OPERATOR : ACR BI-RADS Category 1: Negative RECOMMENDATION: Follow Up Imaging in 12 months - Left The results and recommendations of this examination will be communicated to the patient. Narrative 12/21/2020 2:59 PM WHITE SUGAR PAN TANK OPERATOR MM MAMMOGRAM SCREENING LT W 3D ADELFO W CAD performed on 12/21/20 Compared to: 03/01/2018 MM Mammogram Scr eening Bilat W CAD and 06/26/2016 MM Mammogram Diag Bilat W Adelfo ?? FINDINGS: Left screening mammogram was p erformed with the assistance of Computer-Aided Detection and breast adelfo synthesis. The breast is extremely dense, which lowers the sensitivity of m ammography. There is no radiographic evidence of mal ignancy. ?? Lori Ramos DIE MAKER ELECTRONIC, INSURANCE CLAIMS ASSISTANT RAD LIONEL documented in this encounter Visit Diagnoses Diagnosis Malignant neoplasm of overlapping sites of right breast in female, estrogen receptor positive (HRC) Encounter for screening mammogram for ma lignant neoplasm of breast Other screening mammogram documented in this encounter Care Teams Wastewater Operator Relationship Specialty Start Date End Date Mary Kay Lr DIE MAKER ELECTRONIC, INSURANCE CLAIMS ASSISTANT PCP - General Nurse Practitioner 12/01/17 04/23/21 [address] [place] [address] documented as of this encounter
--- OUTSIDE RECORDS SUMMARY | 2021-11-06 20:37 | XMS_ITS | Encounter Summary ---
:1975 Author Organization [facility] Address [address], [place] [address] Care Team Providers Name Role Phone Deepjordan Mary Kay Pitt APRN, GOSPEL SINGER Primary Care Provider [phone] Reason for Visit Reason Comments Refill BIKTARVY 50-200-25 MG tablet [Pharmacy Med Name: Biktarvy Oral Tablet 50-200-25 MG] Encounter Details Date Type Department Care Team Description 04/02/2021 Refill [facility] [address] Chante Sharma MD Refill (BIKTARVY Infectious Disease [address] 50-200-25 MG tablet [facility] [place] [address] [Pharmacy Med Name: [place] [address] Biktarvy Oral Tablet [id number] 50-200-25 MG]) Social History Tobacco Use Types Packs/Day Years Used Date Smoking Tobacco: Never Smokeless Tobacco: Never Alcohol Use Standard Drinks/Week Comments Yes 7 (1 standard drink = 0.6 oz pure alcoho l) Alcohol Habits Answer Date Recorded How often do you have a drink containing 4 or more times a w [place] 02/01/2020 alcohol? How many drinks containing alcohol do you have Not asked on a typical day when you are drinking? How often do you have six or more drinks on one Not asked occasion? Comment: Not asked Sex Assigned at Date Recorded Not on file documented as of this encounter Nursing Notes Interface, Out Surescripts Prov Query - 04/02/2021 2:01 AM CST BIKTARVY 50-200-25 MG tablet [Pharmacy Med Name: Biktarvy Oral Tablet 50-200-25 MG] Unassigned -> Medication cannot be delegated. Last qualifying visit: 01/16/2021 (in [facility]FECTI[facility] with MARIE SHARMA) Next scheduled visit: None Last ordered by MARIE SHARMA: 03/30/2020 (368 days ago) QTY: 90, Refills: 3, Sig: take 1 tablet by mouth daily. (changed but equivalent) Powered by [employer] by [employer], Reference: [id number], 04/02/2021 2:01:39 AM RESIDENT PROGRAMS ASSISTANT, Pool:EDITH SALAZAR CARE TEAM ([id number]) DENT PROGRAMS ASSISTANT documented in this encounter Plan of Treatment Not on filedocumented as of this encounter Visit Diagnoses Not on filedocumented in this encounter Care Teams Head Of Global Strategic Partnerships Relationship Specialty Start Date End Date Mary Kay Lr, FISHER TROLL LINE, GOSPEL SINGER PCP - General Nurse Practitioner 12/01/17 04/23/21 [address] [place] [place] [address] documented as of this encounter
--- OUTSIDE RECORDS SUMMARY | 2021-11-06 20:37 | XMS_ITS | Encounter Summary ---
:1975 Author Organization [facility] Address [address], [place] [address] Care Team Providers Name Role Phone Kelli Lewis MD Primary Care Provider [phone] Encounter Details Date Type Department Care Team Description 01/07/2021 [facility] Center at [address] Chemo Therapy [place] [address] [place] [address] [place] [address] Social History Tobacco Use Types Packs/Day Years Used Date Smoking Tobacco: Never Smokeless Tobacco: Never Alcohol Use Standard Drinks/Week Comments Yes 7 (1 standard drink = 0.6 oz pure alcoho l) Alcohol Habits Answer Date Recorded How often do you have a drink containing 4 or more times a w [place] 02/01/2020 alcohol? How many drinks containing alcohol [...] on filedocumented in this encounter Care Teams Slackline Operator Relationship Specialty Start Date End Date Kelli Lewis MD PCP - General Family Practice 04/24/21 [address] [place] [id number] documented as of this encounter
--- OUTSIDE RECORDS SUMMARY | 2021-11-06 20:37 | XMS_ITS | Encounter Summary ---
:1975 Author Organization [facility] Address [address], [place] [address] Care Team Providers Name Role Phone Kelli Lewis MD Primary Care Provider [phone] Encounter Details Date Type Department Care Team Description 02/08/2021 [facility] V[facility] Center at [address] Chemo [place] [address] [place] [address] [place] [address] Social History Tobacco Use Types Packs/Day Years Used Date Smoking Tobacco: Never Smokeless Tobacco: Never Alcohol Use Standard Drinks/Week Comments Yes 7 (1 standard drink = 0.6 oz pure alcoho l) Alcohol Habits Answer Date Recorded How often do you have a drink containing 4 or more times a w [place] 02/01/2020 alcohol? How many drinks containing alcohol [...] on filedocumented in this encounter Care Teams X Ray Equipment Mechanic Relationship Specialty Start Date End Date Kelli Lewis MD PCP - General Family Practice 04/24/21 [address] [place] [address] documented as of this encounter
--- OUTSIDE RECORDS SUMMARY | 2021-11-06 20:37 | XMS_ITS | Encounter Summary ---
:1975 Author Organization [facility] Address [address] [place] [address] Care Team Providers Name Role Phone Kelli Lewis MD Primary Care Provider [phone] Reason for Visit Reason Comments CONSULT Consult/Transfer Care (Routine) - New Request Specialty Diagnoses / Procedures Referred By Contact Refer red To Contact Diagnoses Hemorrhoids, unspecified hemorrhoid type Kelli Lewis MD [address] [place], [place] [address] Referral ID Status Reason Start Date Expiration Date Visits V isits Requested Authorized [id number] New Request 04/24/2021 07/24/2022 1 1 Encounter Details Date Type Department Care Team Description 06/10/2021 Office Visit Specialty Center [address], Safia, Anal fissure (Primary Dx); Colorectal Surgery FOOD BEVERAGE SERVER, WOOD SHOP TEACHER [facility]al [facility]; [facility] [address] [facility] Anal pain [address] [place] [address] [phone] (Wo rk) Social History Tobacco Use Types Packs/Day Years Used Date Smoking Tobacco: Never Smokeless Tobacco: Never Alcohol Use Standard Drinks/Week Comments Yes 7 (1 standard drink = 0.6 oz pure alcoho l) Alcohol Habits Answer Date Recorded How often do you have a drink containing 4 or more times a w [place] 02/01/2020 alcohol? How many drinks containing alcohol do you have Not asked on a typical day when you are drinking? How often do you have six or more drinks on one Not asked occasion? Comment: Not asked Sex Assigned at Date Recorded Not on file documented as of this encounter Last Filed Vital Signs Vital Sign Reading Time Taken Comments Blood Pressure - - Pulse - - Temperature - - Respiratory Rate - - Oxygen Saturation - - Inhaled Oxygen Concentration - - Weight 57.6 kg (127 lb) 06/10/2021 1:32 PM CDT Height 170.2 cm (5' 7) 06/10/2021 1:32 PM CDT Body Mass Index 19.89 06/10/2021 1:32 PM CDT documented in this encounter Patient Instructions Patient InstructionsSoSafia sequeira APRN, CNP - 06/10/2021 2:10 PM CDT Fiber supplementation It is recommended that a person should eat between 25-35g fiber per day. This can be difficult to achieve with diet alone. In addition to adding fruits and vegetables to your diet the following supplements can be used. Metamucil Benefiber *Citrucel *Regular Girl Plan to start with a dose about 1/3 of the recommended dose for two weeks, then increase the dose to2/3 of the recommended dose for the next two weeks. By one month you can take the full dose. (7-10g of fiber) By slowly increasing the amount of fiber supplement, it will help ease the gas and distention felt by some people when fiber is added abruptly. documented in this encounter Progress Notes Safia Hughes APRN, CNP - 06/10/2021 1:30 PM CDT Images from the original note were not included. Colorectal Surgery Clinic Note DATE OF VISIT: 06/10/2021 SUBJECTIVE: HPI: Cristiana Castillo is a pleasant 46 y.o. female who presents to clinic today for evaluation of analpain per the request of Dr. Lewis. Pain: Longstanding, intermittent episodes, severeto the point of nausea, often associated with post-op opioids, occurs with BM. Currently very mild/not really any Bleeding: some, mostly wiping hematochezia Discharge: no The patient denies a family history of colon cancer or inflammatory bowel disease. She has not gotten a colonoscopy. It has been ordered she just needs to schedule. Checking with insurance 1st. Jeannette denies any unintentional weight loss, change in bowel habits, fever/chills, abdominal pain or black/tarry stools. MHX: Hx breast cancer - s/p mastectomy. Completed chemotherapy May 2020; currently on letrozole 2.5mg qd. HIV infection - follows with Dr Hicks (ID). On Biktarvy 50-200-25. 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 Had been living in [facility] for many years. No Known Allergies OBJECTIVE: Ht 5' 7 (170.2 cm) Wt 127 lb (04366 g) BMI 19.89 kg/m?? Rectal Exam: Tammie Lu (RN) is present for entire exam. 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 no fistula ROSCOE: no masses Anoscopy: normal appearing anal canal. 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 PLAN: Long-term goal is to avoid hard bowel movements. Keep stool soft with fiber supplementation 64 oz ofwater or more per day with the use of MiraLax if needed or anticipated life event that typically causes constipation. If fissure symptoms develop in the future please contact the clinic to request a work-in appointment. The patient was provided with educational handouts on fiber I counseled the patient regarding diagnosis, treatment options, alternatives to therapy, complications, and expected outcomes. Safia Hughes APRN, CNP 3:42 PM 06/10/2021 documented in this encounter Plan of Treatment Not on filedocumented as of this encounter Visit Diagnoses Diagnosis Anal fissure - Primary Rectal bleeding Hemorrhage of rectum and anus Anal pain Anal or rectal pain documented in this encounter Care Teams Supervisor Blood Relationship Specialty Start Date End Date Kelli Lewis MD PCP - General Family Practice 04/24/[address] [place] [id number] documented as of this encounter
--- OUTSIDE RECORDS SUMMARY | 2021-11-06 20:37 | XMS_ITS | Encounter Summary ---
:1975 Author Organization [facility] Address [address] [address] Care Team Providers Name Role Phone Kelli Lewis MD Primary Care Provider [phone] Reason for Referral Procedure/Equipment (Routine) - Incomplete Specialty Diagnoses / Procedures Referred By Contact Refer red To Contact Diagnoses Malignant neoplasm of overlapping sites of right breast in female, estrogen receptor positive (HRC) Jessica Cano MD Procedures MM Mammogram Screening Lt W 3D Adelfo W CAD [address] [place] [address] Referral ID Status Reason Start Date Expiration Date Visits V isits Requested Authorized [id number] Incomplete 09/03/2021 12/03/2022 1 1 Encounter Details Date Type Department Care Team Description 09/03/2021 Phone Visit [facility] Cancer Jessica Cano alignant neoplasm of overlapping sites of right breast in female, estrogen receptor positive (HRC) (Primary Dx); Care at Adrianne Bartholomew MD Osteopenia, unspecified location [facility] [address] [address] [phone] Social History Tobacco Use Types Packs/Day Years Used Date Smoking Tobacco: Never Smokeless Tobacco: Never Alcohol Use Standard Drinks/Week Comments Yes 7 (1 standard drink = 0.6 oz pure alcoho l) Alcohol Habits Answer Date Recorded How often do you have a drink containing 4 or more times a w [place] 02/01/2020 alcohol? How many drinks containing alcohol do you have Not asked on a typical day when you are drinking? How often do you have six or more drinks on one Not asked occasion? Comment: Not asked Sex Assigned at Date Recorded Not on file documented as of this encounter Patient Instructions Patient InstructionsJessica Cano MD - 09/03/2021 1:00 PM CDT Cristiana Castillo, It was nice to see you in clinic today! You were seen today for early stage, hormone positive breast cancer Treatment is with letrozole Schedule: Return to the clinic in 6 months to see me Mammogram due in Nov Home Instructions: Check out Survival 2 Strength Try Letrozole in the morning Continue calcium and vitamin-D supplements Call with any questions or concerns. The clinic phone number is [phone] (follow prompts for [facility]). All the best, Yudy Cano MD Hematology/Oncology [facility] documented in this encounter Progress Notes Jessica Cano MD - 09/03/2021 1:00 PM CDT Hematology/Oncology Clinic Follow-Up Note Date of Service: 09/03/2021 Diagnosis: 1. Stage IA (pT1c, pN0) invasive lobular carcinoma of the right breast, ER positive, MD positive, HER2 negative, grade 2 -discovered on screening mammogram December 2019 -right breast mastectomy with sentinel lymph node biopsy 02/15/2020 -Oncotype recurrence score 27, high risk -of note, patient had RAMYA/BSO 2011, had been on estradiol until this diagnosis Treatment: 1. Taxotere and Cytoxan chemotherapy -completed May 2020 2. Letrozole 2.5 mg daily -started June 2020 -DEXA June 2020 with osteopenia Treatment goal: Curative Interval History: Cristiana presents today for follow-up, she is on letrozole. Appointment today was changed to a phone visit as she developed symptoms of cold. She has been sneezing and a runny nose. Her had the same thing a few days ago and tested negative for COVID. She has not done a COVID test herself yet. Otherwise she has been feeling very good overall lately. 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 She does find that she is quite exhausted most dates and feels like she could take a nap. Otherwise tolerating letrozole without any significant adverse effects. No significant hot flashes. She does find she is having disrupted sleep, but cannot clearly say this is due to hot flashes. Otherwise no new pains, abdominal bloating. No new medical developments. Current Outpatient Medications Medication Sig Dispense Refill ALBUTEROL IN Inhale 1-2 puffs every 4 hours as needed. 17 PRN BIKTARVY 50-200-25 MG tablet TAKE ONE TABLET BY MOUTH ONE TIME DAILY 90 Tablet 3 Calcium Carbonate Antacid (CALCIUM CARBONATE OR) letrozole (FEMARA) 2.5 MG tablet TAKE ONE TABLET BY MOUTH ONE TIME DAILY 90 Tablet 3 VITAMIN D, CHOLECALCIFEROL, OR Take 1 Capsule by mouth daily. No current facility-administered medications for this visit. PMH/PSH reviewed in [facility]. REVIEW OF SYSTEMS: A 10 system review was performed and is negative unless previously stated in the history of present illness. Performance Status: 0 - Fully active; no performance restrictions PE: There were no vitals taken for this visit. GEN - Alert and oriented x 3, no acute distress Data summary: I have reviewed all the labs, images and notes in detail. The pertinent findings are summarized in this note. ASSESSMENT AND PLAN: 1. Stage IA (pT1c, pN0) invasive lobular carcinoma of the right breast, ER positive, MD positive, HER2 negative, grade 2 Goal of treatment: curative Status of Disease: No evidence of disease recurrence Treatment plan: Letrozole 2.5 mg daily Follow Up Plan: Twice annual clinic history and physical, annual left-sided mammograms due in December. DEXA scan every 2-3 years 2. Osteopenia: Next DEXA scan due June 2022. Continue calcium and vitamin-D. 3. Fatigue: Recommended considering trying her letrozole in the morning instead of at night to see if this helps her sleep better, also recommended survival to strength personal training program. 4. HIV infection: Well controlled, follows with Dr. Hicks. All the questions were answered to their satisfaction. Patient expressed good understanding of the diagnosis and treatment plan. Yudy Cano MD Hematology/Oncology [facility] Level 4 visit based on complexity: 2 or more stable chronic conditions or 1 new problem with uncertain prognosis or flare of a chronic illness or side effect of treatment, and test result review (at least 3 separate tests) or ordering of tests (3), and/or including prescription drug management . QOPI Data: Pain: 0 Advanced Directives: Not Discussed This note created using speech-recognition software and may contain unintended word substitutions. documented in this encounter Plan of Treatment Scheduled Orders Name Type Priority Associated Diagnoses Order S chedule MM Mammogram Imaging New Routine Malignant neoplasm of Expect ed: 09/03/2021 Screening Lt W 3D overlapping sites of (A pproximate), Adelfo W CAD right breast in female, Expi res: 09/03/2022 estrogen receptor positive (HRC) documented as of this encounter Visit Diagnoses Diagnosis Malignant neoplasm of overlapping sites of right breast in female, estrogen receptor positive (HRC) - Primary Osteopenia, unspecified location documented in this encounter Care Teams Respite Coordinator Relationship Specialty Start Date End Date Kelli Lewis MD PCP - General Family Practice 04/24/21 [address] [place] [address] documented as of this encounter
--- OUTSIDE RECORDS SUMMARY | 2021-11-06 20:37 | XMS_ITS | Encounter Summary ---
:1975 Author Organization [facility] Address [address] [address] Care Team Providers Name Role Phone Mary Kay Lr APRN, MANAGER CUSTOMS Primary Care Provider [phone] Encounter Details Date Type Department Care Team Description 11/04/2020 [facility] Vance Martinez MD Center at [address] Chemo Therapy [place] [address] [place] [address] [place] [address] Social History Tobacco Use Types Packs/Day Years Used Date Smoking Tobacco: Never Smokeless Tobacco: Never Alcohol Use Standard Drinks/Week Comments Yes 7 (1 standard drink = 0.6 oz pure alcoho l) Alcohol Habits Answer Date Recorded How often do you have a drink containing 4 or more times a w [place] 02/01/2020 alcohol? How many drinks containing alcohol [...] on filedocumented in this encounter Care Teams Endocrinology Physician Relationship Specialty Start Date End Date Mar yKay Lr, MARQUES, MANAGER CUSTOMS PCP - General Nurse Practitioner 12/01/17 04/23/21 [address] [place] [address] documented as of this encounter
--- OUTSIDE RECORDS SUMMARY | 2021-11-06 20:37 | XMS_ITS | Encounter Summary ---
:1975 Author Organization [facility] Address [address], [place] [address] Care Team Providers Name Role Phone Mary Kay Lr APRN, VOLUNTEER SERVICES SPECIALIST Primary Care Provider [phone] Encounter Details Date Type Department Care Team Description 11/12/2020 [facility] Vance Martinez MD Center at [address] Chemo Therapy [place] [address] [place] [address] [place] [address] Social History Tobacco Use Types Packs/Day Years Used Date Smoking Tobacco: Never Smokeless Tobacco: Never Alcohol Use Standard Drinks/Week Comments Yes 7 (1 standard drink = 0.6 oz pure alcoho l) Alcohol Habits Answer Date Recorded How often do you have a drink containing 4 or more times a w [place] 02/01/2020 alcohol? How many drinks containing alcohol [...] on filedocumented in this encounter Care Teams Slitter Helper Relationship Specialty Start Date End Date Mary Kay Lr, MARQUES, VOLUNTEER SERVICES SPECIALIST PCP - General Nurse Practitioner 12/01/17 04/23/21 [address] [place] [address] documented as of this encounter
--- OUTSIDE RECORDS SUMMARY | 2021-11-06 20:37 | XMS_ITS | Encounter Summary ---
:1975 Author Organization [facility] Address [address], [place] [address] Care Team Providers Name Role Phone Kelli Lewis MD Primary Care Provider [phone] Encounter Details Date Type Department Care Team Description 01/15/2021 [facility] Center at [address] [place]o [place] [address] [place] [address] [place] [address] Social History Tobacco Use Types Packs/Day Years Used Date Smoking Tobacco: Never Smokeless Tobacco: Never Alcohol Use Standard Drinks/Week Comments Yes 7 (1 standard drink = 0.6 oz pure alcoho l) Alcohol Habits Answer Date Recorded How often do you have a drink containing 4 or more times a w [place] 02/01/2020 alcohol? How many drinks containing alcohol [...] on filedocumented in this encounter Care Teams Automation Technologist Relationship Specialty Start Date End Date Kelli Lewis MD PCP - General Family Practice 04/24/21 [address] [place] [address] documented as of this encounter
--- OUTSIDE RECORDS SUMMARY | 2021-11-06 20:37 | XMS_ITS | Encounter Summary ---
:1975 Author Organization [facility] Address [address], [place] [address] Care Team Providers Name Role Phone Kelli Lewis MD Primary Care Provider [phone] Encounter Details Date Type Department Care Team Description 02/16/2021 [facility] Center at [address] Chemo Therapy and [place] [address] [place] [address] [place] [address] Social History Tobacco Use Types Packs/Day Years Used Date Smoking Tobacco: Never Smokeless Tobacco: Never Alcohol Use Standard Drinks/Week Comments Yes 7 (1 standard drink = 0.6 oz pure alcoho l) Alcohol Habits Answer Date Recorded How often do you have a drink containing 4 or more times a w [place] 02/01/2020 alcohol? How many drinks containing alcohol [...] on filedocumented in this encounter Care Teams Community Marketing Coordinator Relationship Specialty Start Date End Date Kelli Lewis MD PCP - General Family Practice 04/24/[address] [place] [id number] documented as of this encounter
--- OUTSIDE RECORDS SUMMARY | 2021-11-06 20:37 | XMS_ITS | Encounter Summary ---
:1975 Author Organization [facility] Address [address], [place] [address] Care Team Providers Name Role Phone Kelli Lewis MD Primary Care Provider [phone] Encounter Details Date Type Department Care Team Description 02/24/2021 [facility] Center at [address] Chemo Therapy [place] [address] [place] [address] [place] [address] Social History Tobacco Use Types Packs/Day Years Used Date Smoking Tobacco: Never Smokeless Tobacco: Never Alcohol Use Standard Drinks/Week Comments Yes 7 (1 standard drink = 0.6 oz pure alcoho l) Alcohol Habits Answer Date Recorded How often do you have a drink containing 4 or more times a w [place] 02/01/2020 alcohol? How many drinks containing alcohol [...] on filedocumented in this encounter Care Teams Farm Instructor Relationship Specialty Start Date End Date Kelli Lewis MD PCP - General Family Practice 04/24/[address] [place] [id number] documented as of this encounter
--- OUTSIDE RECORDS SUMMARY | 2021-11-06 20:37 | XMS_ITS | Encounter Summary ---
:1975 Author Organization [facility] Address [address], [place] [address] Care Team Providers Name Role Phone Mary Kay Lr APRN, WINDOW AND SIDING CRAFTSMAN Primary Care Provider [phone] Encounter Details Date Type Department Care Team Description 10/19/2020 [facility]/Orders [facility] Cancer Vance Martinez MD Center at [address] Chemo Therapy [place] [address] [place] [address] [place] [address] Social History Tobacco Use Types Packs/Day Years Used Date Smoking Tobacco: Never Smokeless Tobacco: Never Alcohol Use Standard Drinks/Week Comments Yes 7 (1 standard drink = 0.6 oz pure alcoho l) Alcohol Habits Answer Date Recorded How often do you have a drink containing 4 or more times a w [place] 02/01/2020 alcohol? How many drinks containing alcohol [...] on filedocumented in this encounter Care Teams Installer Soft Top Relationship Specialty Start Date End Date Mary Kay Lr, MARQUES, WINDOW AND SIDING CRAFTSMAN PCP - General Nurse Practitioner 12/01/17 04/23/21 [address] [place] [address] documented as of this encounter
--- OUTSIDE RECORDS SUMMARY | 2021-11-06 20:37 | XMS_ITS | Encounter Summary ---
:1975 Author Organization [facility] Address [address] [place] [address] Care Team Providers Name Role Phone Mary Kay Lr APRN, DIRECTOR OF PRIMARY Primary Care Provider [phone] Reason for Visit Reason Comments Knee Problem Therapies (Routine) - Closed Specialty Diagnoses / Procedures Referred By Contact Refer red To Contact Diagnoses Pain in both [place], [place] [address] [place] [address] Referral ID Status Reason Start Date Expiration Date Visits Requ ested Visits Authorized [id number] Closed 10/08/2020 10/08/2021 1 29 Encounter Details Date Type Department Care Team Description 10/10/2020 Therapy [facility] Josesito Farrell , Pain in both knees, - Physical Therapy PT unspecified chronicity [id number] [facility] [address] [address] [address] (Primary Dx) [place] [address] [place], [place] [address] (Wo rk) Social History Tobacco Use Types Packs/Day Years Used Date Smoking Tobacco: Never Smokeless Tobacco: Never Alcohol Use Standard Drinks/Week Comments Yes 7 (1 standard drink = 0.6 oz pure alcoho l) Alcohol Habits Answer Date Recorded How often do you have a drink containing 4 or more times a w [place] 02/01/2020 alcohol? How many drinks containing alcohol do you have Not asked on a typical day when you are drinking? How often do you have six or more drinks on one Not asked occasion? Comment: Not asked Sex Assigned at Date Recorded Not on file documented as of this encounter Progress Notes Quiring, Josesito Hanson, PT - 10/10/2020 9:45 AM CDT [facility] Physical Therapy Knee Evaluation/Plan of Care Initial Certification Period: 10/10/2020 to 01/08/21 Referring Provider: Jhon Nayak Visit Diagnosis: 1. Pain in both knees, unspecified chronicity Precautions: Malignant neoplasm of upper-inner quadrant of right breast in female, estrogen receptorpositive, HIV asymptomatic Patient Active Problem List Diagnosis ??? S/P hysterectomy ??? Asthma ??? Plantar fasciitis ??? Asymptomatic HIV infection (HRC) ??? Non-seasonal allergic rhinitis due to pollen ??? Malignant neoplasm of overlapping sites of right breast in female, estrogen receptor positive (HRC) ??? Invasive lobular carcinoma of right breast, stage 1 (HRC) ??? Malignant neoplasm of upper-inner quadrant of right breast in female, estrogen receptor positive(HRC) Orders: Evaluate & treat Onset/Referral Date: few months - more acute onset SUBJECTIVE Reason for Visit: Cristiana presents to Physical Therapy with bilateral knee pain that has persisted on and off for years, but has had more acute pain in the last few months. Patient reports that the mechanism of injury was insidious - thinks likely associated from decreased activity and likely increased stress to the body during her treatment for breast cancer. Patient states that the problem is stayingthe same/getting worse over the last month. Locking/Catching? no Instability? no Concurrent Ankle, Hip Pain or Low back pain? no Numbness/Tingling? no Attempted Treatments: ice, rest Alleviating Factors: ice, rest Aggravating Factors: weight bearing activities with knee flexion/extension Patient Therapy Goals:Resume previous level of activity symptom free. Past Medical History: Patient has a current medication list which includes the following prescription(s): albuterol, biktarvy, calcium carbonate antacid, letrozole, and cholecalciferol. Patient has a past medical history of Asthma, Breast cancer (HRC), and HIV (human immunodeficiency virus infection) (HRC). Recently Experienced (Red Flags): None Previous Treatment: None Benefited from previous treatment: not applicable Pain details: Current pain intensity level: 2/10 and can get up to a 4-5/10 with activity Pain location: bilateral knees. 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 Patient History: Moderate Complexity: 1-2 personal factors and/or comorbidities that impact plan of care: Malignant neoplasm of upper-inner quadrant of right breast in female, estrogen receptor positive, HIV asymptomatic OBJECTIVE Observation: Right knee internally rotated relative to the left Gait Exam: Normal Edema:None Screening: Hip Screen: Within Normal Limits Ankle Screen: Within Normal Limits ROM: AROM Left Extension ROM: WNL Flexion ROM: WNL Right Extension ROM: WNL Flexion ROM: WNL * some mild pain at end ranges of motion for both knees Strength: Left: Knee Flexion: 5/5 Knee Extension: 5/5 Hip Extension: 4/5 Hip Abduction: 4/5 Right: Knee Flexion: 5/5 Knee Extension: 5/5 Hip Extension: 4/5 Hip Abduction: 4/5 Joint Mobility: Normal bilaterally Special Tests: Bilateral: Anterior drawer for ACL: Negative Lachmans for ACL: Negative Lever/Lelli for ACL: Negative Posterior drawer for PCL: Negative Sag Sign for PCL: Negative Valgus Stress for MCL: Negative Varus Stress for LCL: Negative Functional Tests: Double leg squat: Able to perform but with pain bilaterally Flexibility: Hamstrings: Normal Quadriceps: Normal Hip flexors: Normal PT Outcomes: No outcome data collected. Clinical Examination: Moderate Complexity: Addressed 3 elements from body structures and functions (see above), and/or functional limitations as noted below. Today's Intervention/Charges: Physical Therapy Evaluation was completed and the patient was educated on the condition, planned therapy intervention and expectations from treatment. Therapeutic exercise x 23 minutes: Access Code: [email or web address] URL: [email or web address] Date: 10/10/2020 Prepared by: Josesito Farrell Exercises Supine Bridge - 1-2 x daily - 7 x weekly - 1 sets - 5-20 reps - 1 hold Clamshell with Resistance - 1-2 x daily - 7 x weekly - 1 sets - 10-20 reps - 1 hold Supine Straight Leg Raises - 1-2 x daily - 7 x weekly - 1 sets - 10-20 reps - 1 hold Standing Hip Abduction with Counter Support - 1-2 x daily - 7 x weekly - 1 sets - 10-20 reps Heel rises with counter support - 1-2 x daily - 7 x weekly - 1 sets - 10-20 reps Supine Heel Slide - 3 x daily - 7 x weekly - 1 sets - 10 reps - discussed some progressions of these exercises as well Timed Code Treatment Minutes: 23 Total Treatment Minutes: 45 ASSESSMENT Therapist Impression/Summary: Patient presents with signs and symptoms consistent with referring diagnosis of bilateral patellofemoral pain syndrome. Patient's impairments include decreased strength, increased pain, and decreased range of motion. Patient would benefit from skilled PT services in orderto help the patient regain functional mobility and return to prior level of functioning. PT Clinical Presentation: Moderate Complexity: Evolving Clinical Presentation with changing clinical characteristics Clinical Decision Making: Moderate Complexity Recommendations/Equipment: Equipment recommendations: none Significant Impairments: Pain, Muscle tightness/decreased flexibility, Muscle weakness, Proprioception deficits Functional Limitations: difficulty with household tasks, difficulty with sports/leisure activities, difficulty with gait and difficulty with stairs Goals/Functional Outcomes: HEP/Independent Management: Demonstrate independence with HEP and self- management following each treatment session Patient will be able to ascend/descend stairs with minimal to no pain in 8-12 weeks Perform home management tasks with ease in 6-8 weeks. Ambulation: Ambulate for unlimited distances without increased symptoms in 6-8 weeks. Sports/Leisure: Return to prior level of leisure or recreational activities, including hiking without an increase in symptoms or limitations in 6-8 weeks. Barriers to Goal Achievement or Learning: none Prognosis: Good PLAN Planned Intervention/Education: ADL/Self Management, Education, Electrical Stimulation, Gait training, Heat/ice, Iontophoresis with dexamethasone, Manual Therapy, Neuromuscular Re-education, TENS application/self treatment, Therapeutic Activities, Therapeutic Exercise, Ultrasound Frequency: 1 x week, 2 x week Duration: 60 days Discharge Plan: Patient will be discharged from therapy when goals are achieved or patient plateaus in progress. Informed Consent: Patient and/or family in agreement with the care plan. Plan for Next Treatment: Progress HEP as tolerated by patient, manual therapy and modalities as needed to decrease pain and increase mobility, consider these exercises/manual techniques for future sessions: consider use of BFR and taping techniques The relay engineer is completed by the therapist and the referring clinician's electronic signature certifies medical necessity for the plan above. documented in this encounter Plan of Treatment Scheduled Referrals Name Type Priority Associated Diagnoses Order S chedule Physical Therapy Referral Routine Pain in both knees, Orde red: 10/08/2020 unspecified chronicity documented as of this encounter Visit Diagnoses Diagnosis Pain in both knees, unspecified chronici ty - Primary documented in this encounter Care Teams Laboratory Technician Relationship Specialty Start Date End Date Mary Kay Lr, [employer], DIRECTOR OF PRIMARY PCP - General Nurse Practitioner 12/01/17 04/23/21 [address] [place] [address] documented as of this encounter
--- OUTSIDE RECORDS SUMMARY | 2021-11-06 20:37 | XMS_ITS | Encounter Summary ---
:1975 Author Organization [facility] Address [address], [place] [address] Care Team Providers Name Role Phone Kelli Lewis MD Primary Care Provider [phone] Reason for Visit Reason Comments Refill BIKTARVY 50-200-25 MG tablet [Pharmacy Med Name: Biktarvy Oral Tablet 50-200-25 MG] Encounter Details Date Type Department Care Team Description 07/13/2021 Refill [facility] [address] Chante Sharma MD Refill (BIKTARVY Infectious Disease [address] 50-200-25 MG tablet [facility] [place] [address] [Pharmacy Med Name: [place] [address] Biktarvy Oral Tablet [id number] 50-200-25 MG]) Social History Tobacco Use Types Packs/Day Years Used Date Smoking Tobacco: Never Smokeless Tobacco: Never Alcohol Use Standard Drinks/Week Comments Yes 7 (1 standard drink = 0.6 oz pure alcoho l) Alcohol Habits Answer Date Recorded How often do you have a drink containing 4 or more times a w [place] 02/01/2020 alcohol? How many drinks containing alcohol do you have Not asked on a typical day when you are drinking? How often do you have six or more drinks on one Not asked occasion? Comment: Not asked Sex Assigned at Date Recorded Not on file documented as of this encounter Nursing Notes Interface, Out Surescripts Prov Query - 07/13/2021 10:57 AM CDT BIKTARVY 50-200-25 MG tablet [Pharmacy Med Name: Biktarvy Oral Tablet 50-200-25 MG] Unassigned -> Medication cannot be delegated. Last qualifying visit: 01/16/2021 (in [facility] with MARIE SHARMA) Next scheduled visit: None Last ordered by MARIE SHARMA: 04/02/2021 (102 days ago) QTY: 90, Refills: 0, Sig: take one tablet by mouth one time daily (unchanged) [employer] Embedded Refills, Reference: [id number], 07/13/2021 10:57:57 AM CDT, Pool: [facility] CARE TEAM ([id number]) documented in this encounter Plan of Treatment Not on filedocumented as of this encounter Visit Diagnoses Not on filedocumented in this encounter Care Teams Pin Maker Relationship Specialty Start Date End Date Kelli Lewis MD PCP - General Family Practice 04/24/[address] [place] [id number] documented as of this encounter
--- OUTSIDE RECORDS SUMMARY | 2021-11-06 20:37 | XMS_ITS | Encounter Summary ---
:1975 Author [facility] Address [address], [place] [address] Care Team Providers Name Role Phone Kelli Lewis MD Primary Care Provider [phone] Reason for Referral (Routine) - New Request Specialty Diagnoses / Procedures Referred By Contact Refer red To Contact Diagnoses Screen for colon cancer Kelli Lewis MD Procedures Endoscopy, Colon, Screening/Diagnostic [address] [place], [place] [address] Referral ID Status Reason Start Date Expiration Date Visits V isits Requested Authorized [id number] New Request 04/24/2021 04/25/2023 1 1 Consult/Transfer Care (Routine) - New Request Specialty Diagnoses / Procedures Referred By Contact Refer red To Contact Diagnoses Hemorrhoids, unspecified hemorrhoid type Kelli Lewis MD [address] [place], [place] [address] Referral ID Status Reason Start Date Expiration Date Visits V isits Requested Authorized [id number] New Request 04/24/2021 07/24/2022 1 1 Scheduling Instructions Your provider has recommended an appoint ment with Adrianne Oliveira General Surgery. You can quickly make your appointment online at [employer]/schedule. You can also call [phone] for help scheduling yo ur appointment. We suggest you call your health insurance company about your cove rage and benefits for this appointment. Reason for Visit Reason Comments HEMORRHOIDS Encounter Details Date Type Department Care Team Description 04/24/2021 Office Visit Reji Walters Kelli Lewis rrhoids, unspecified hemorrhoid type (Primary Dx); Russ Wiggins MD Routine screening for STI (sexually ambriz smitted infection); [id number] [address] [employer] [place] [id number] [facility] Screen [place] [address] [place] [address] (Wo rk) Social History Tobacco Use Types Packs/Day Years Used Date Smoking Tobacco: Never Smokeless Tobacco: Never Alcohol Use Standard Drinks/Week Comments Yes 7 (1 standard drink = 0.6 oz pure alcoho l) Alcohol Habits Answer Date Recorded How often do you have a drink containing 4 or more times a w [place] 02/01/2020 alcohol? How many drinks containing alcohol [...] Pulse 71 04/24/2021 1:02 PM CDT Temperature - - Respiratory Rate - - Oxygen Saturation - - Inhaled Oxygen Concentration - - Weight 57.6 kg (127 lb) 04/24/2021 1:02 PM CDT Height - - Body Mass Index 19.89 10/08/2020 4:32 PM CDT documented in this encounter Progress Notes Kelli Lewis MD - 04/24/2021 1:00 PM CDT Subjective Chief Complaint Patient presents with ??? HEMORRHOIDS Cristiana Castillo is a 46 y.o. woman with history of breast cancer who presents for: # hemorrhoids - longstanding issue; tend to crop up post-op with opioids. This time noticed it last week after a long hot bath. Has been using preparation H, Tucks. It is painful and throbbing, needingTylenol, worse with defecation - to the point of nausea. # Hx breast cancer - s/p mastectomy. Completed chemotherapy May 2020; currently on letrozole 2.5mgqd. # HIV infection - follows with Dr Hicks (ID). On Biktarvy 50-200-25. Doing extremely well. Social History Social History Narrative 04/24/2021. Lives with her . Recently bought a horse barn in [place] and moved there from [facility]. Had been living in [facility] for many years. Patient's medications, allergies, past medical, surgical, social and family histories were reviewed and updated as appropriate. Objective BP 114/78 (BP Location: Left Arm, BP Cuff Size: Regular) Pulse 71 Wt 127 lb (57.6 kg) BMI 19.89 kg/m?? Assessment and Plan Hemorrhoids, unspecified hemorrhoid type This episode seems to be resolving, but she is prone to very painful episodes and would like to establish with CRS. - Colorectal Surgery Consult-Adults Routine screening for STI (sexually transmitted infection) Has follow-up with infectious disease. Screen for colon cancer Ordered- due when she turns 47 next fall - Endoscopy, Colon, Screening/Diagnostic; Future Other orders - [facility] ([facility]) COVID-19, 12+ Yrs HALEY TOP Total time: 32 minutes. This includes time spent with the patient during the visit as well as time spent before and after the visit reviewing the chart, documenting the encounter, making phone calls, reviewing studies, etc. Kaylie Lewis MD (Elizabeth) This note was created using voice recognition software. Please notify me if there are significant unintended word substitutions and I will fix them. documented in this encounter Plan of Treatment Scheduled Orders Name Type Priority Associated Diagnoses Order S chedule Endoscopy, Colon, GI Routine Screen for colon cancer 1 Occurrences starting Screening/Diagnostic 022 until 04/24/2023 Scheduled Referrals Name Type Priority Associated Diagnoses Order S chedule Colorectal Surgery Referral Routine Hemorrhoids, unspecifi ed Ordered: 04/24/2021 Consult-Adults hemorrhoid type documented as of this encounter Visit Diagnoses Diagnosis Hemorrhoids, unspecified hemorrhoid type - Primary Routine screening for STI (sexually ambriz smitted infection) Screening examination for venereal disea se Screen for colon cancer Special screening for malignant neoplasm s, colon documented in this encounter Care Teams Well Driller Relationship Specialty Start Date End Date Kelli Lewis MD PCP - General Family Practice 04/24/[address] [place] [id number] documented as of this encounter
--- OUTSIDE RECORDS SUMMARY | 2021-11-06 20:37 | XMS_ITS | Encounter Summary ---
:1975 Author Organization [facility] Address [address], [place] [address] Care Team Providers Name Role Phone Mazinrehanajordan Mary Kay Sweetie MOHAN, CLASSIFIED AD TAKER Primary Care Provider [phone] Encounter Details Date Type Department Care Team Description 03/05/2021 Office Visit [facility] Jessica Cano alignant neoplasm of upper-inner quadrant of right breast in female, estrogen receptor positive (HRC) (Primary Dx); Care at Adrianne Bartholomew MD S/P hysterectomy; [facility] [address] [place] [address] [facility] [address] [place] [address] [phone] Social History Tobacco Use Types Packs/Day Years Used Date Smoking Tobacco: Never Smokeless Tobacco: Never Alcohol Use Standard Drinks/Week Comments Yes 7 (1 standard drink = 0.6 oz pure alcoho l) Alcohol Habits Answer Date Recorded How often do you have a drink containing 4 or more times a w [place] 02/01/2020 alcohol? How many drinks containing alcohol do you have Not asked on a typical day when you are drinking? How often do you have six or more drinks on one Not asked occasion? Comment: Not asked Sex Assigned at Date Recorded Not on file documented as of this encounter Patient Instructions Patient InstructionsJessica Cano MD - 03/05/2021 3:30 PM CST Cristiana Castillo, It was nice to see you in clinic today! You were seen today for early stage, hormone positive breast cancer Treatment is with letrozole Schedule: 1. Return to the clinic in 6 months to see me Home Instructions: 1. Try Magnesium 300-500mg at night to help with hot flashes 2. Try Melatonin at night for sleep 3. Continue calcium and vitamin-D supplements Call with any questions or concerns. The clinic phone number is [phone] (follow prompts for Reji). All the best, Yudy Cano MD Hematology/Oncology [facility] TENDER INSULATION BOARD documented in this encounter Progress Notes Jessica Cano MD - 03/05/2021 3:30 PM CST Hematology/Oncology Clinic Follow-Up Note Date of Service: 03/05/2021 Diagnosis: 1. Stage IA (pT1c, pN0) invasive lobular carcinoma of the right breast, ER positive, CA positive, HER2 negative, grade 2 -discovered on [...] today for follow-up, she is on letrozole. She is tolerating letrozole with hot flashes. They are worse at night. She does get some muscle aches, and stiffness in her hands and feet when she 1st wakes up. She had some pain in her breast where she had reconstruction, shespoke with her plastic surgeon who said this was likely normal post surgery recovery but recommendedfollow-up breast exam as this was a video visit. She had her left screening mammogram in December which was negative. Otherwise no new pains, abdominal bloating. No new medical developments. Current Outpatient Medications Medication Sig Dispense Refill ??? ALBUTEROL IN Inhale 1-2 puffs every 4 hours as needed. 17 PRN ??? BIKTARVY 50-200-25 MG tablet Take 1 Tablet by mouth daily. 90 Tablet 3 ??? Calcium Carbonate Antacid (CALCIUM CARBONATE OR) ??? letrozole (FEMARA) 2.5 MG tablet Take 1 Tablet by mouth daily. 90 Tablet 3 ??? VITAMIN D, CHOLECALCIFEROL, OR Take 1 Capsule by mouth daily. No current facility-administered medications for this visit. PMH/PSH reviewed in [employer]. REVIEW OF SYSTEMS: A 10 system review was performed and is negative unless previously stated in the history of present illness. Performance Status: 0 - Fully active; no performance restrictions PE: There were no vitals taken for this visit. GEN - Alert and oriented x 3, no acute distress Breasts: Right-sided mastectomy with reconstruction, without masses or nodules. Left breast without masses or nodules EXTREM - No asymmetric lower extremity swelling SKIN - No jaundice or rashes NEURO - No gross focal deficits on limited examination PSYCH - Appropriate affect, conversant Data summary: I have reviewed all the labs, images and notes in detail. The pertinent findings are summarized in this note. ASSESSMENT AND PLAN: 1. Stage IA (pT1c, pN0) invasive lobular carcinoma of the right breast, ER positive, CA positive, HER2 negative, grade 2 2. Osteopenia 3. Hot flashes Overall, doing well with no signs and symptoms of recurrent malignancy. She is tolerating letrozole with minimal side effects, we discussed magnesium supplementation for the hot flashes. Will have her return in 6 months to see me. She will be due for her DEXA scan in June 2022. She will be due for her mammogram in December. Continue calcium and vitamin-D # HIV infection Well controlled, follows with Dr. Hicks. All the questions were answered to their satisfaction. Patient expressed good understanding of the diagnosis and treatment plan. Yudy Cano MD Hematology/Oncology [facility] QOPI Data: Pain: 0 Advanced Directives: Not Discussed This note created using speech-recognition software and may contain unintended word substitutions. TENDER INSULATION BOARD documented in this encounter Plan of Treatment Not on filedocumented as of this encounter Visit Diagnoses Diagnosis Malignant neoplasm of upper-inner quadra nt of right breast in female, estrogen receptor positive (HRC) - Primary S/P hysterectomy Acquired absence of both cervix and uter us Osteopenia, unspecified location documented in this encounter Care Teams Loss Prevention Operations Manager Relationship Specialty Start Date End Date Mary Kay Lr, MANAGER PUBLISHING, CLASSIFIED AD TAKER PCP - General Nurse Practitioner 12/01/17 04/23/21 [address] [place] [address] documented as of this encounter
--- OUTSIDE RECORDS SUMMARY | 2021-11-06 20:37 | XMS_ITS | Encounter Summary ---
:1975 Author Organization [facility] Address [address], [place] [address] Care Team Providers Name Role Phone Mary Kay Lr APRN, METAL SPONGE MAKING MACHINE OPERATOR Primary Care Provider [phone] Encounter Details Date Type Department Care Team Description 10/11/2020 [facility] Vance Martinez [facility] Center at [address] Chemo [place] [address] [place] [address] [place] [address] Social History Tobacco Use Types Packs/Day Years Used Date Smoking Tobacco: Never Smokeless Tobacco: Never Alcohol Use Standard Drinks/Week Comments Yes 7 (1 standard drink = 0.6 oz pure alcoho l) Alcohol Habits Answer Date Recorded How often do you have a drink containing 4 or more times a w [place] 02/01/2020 alcohol? How many drinks containing alcohol [...] on filedocumented in this encounter Care Teams Home Companion Relationship Specialty Start Date End Date Mary Kay Lr, MARQUES, METAL SPONGE MAKING MACHINE OPERATOR PCP - General Nurse Practitioner 12/01/17 04/23/21 [address] [place] [address] documented as of this encounter
--- OUTSIDE RECORDS SUMMARY | 2021-11-06 20:37 | XMS_ITS | Encounter Summary ---
:1975 Author Organization [facility] Address [address] [address] Care Team Providers Name Role Phone Kelli Lewis MD Primary Care Provider [phone] Encounter Details Date Type Department Care Team Description 01/31/2021 [facility] Center at [address] [place]o [place] [address] [place] [address] [place] [address] Social History Tobacco Use Types Packs/Day Years Used Date Smoking Tobacco: Never Smokeless Tobacco: Never Alcohol Use Standard Drinks/Week Comments Yes 7 (1 standard drink = 0.6 oz pure alcoho l) Alcohol Habits Answer Date Recorded How often do you have a drink containing 4 or more times a w [place] 02/01/2020 alcohol? How many drinks containing alcohol [...] on filedocumented in this encounter Care Teams Surgical Tech Relationship Specialty Start Date End Date Kelli Lewis MD PCP - General Family Practice 04/24/[address] [place] [address] documented as of this encounter
--- OUTSIDE RECORDS SUMMARY | 2021-11-06 20:37 | XMS_ITS | Encounter Summary ---
:1975 Author Organization [facility] Address [address] [address] Care Team Providers Name Role Phone Mary Kay Lr APRN, UTILITY BAGGER Primary Care Provider [phone] Encounter Details Date Type Department Care Team Description 02/18/2021 Telemedicine [facility] Stephanie Soto Personal history of Plastic Surgery MD [place] malignant neoplasm [address] of breast ([place] [address] [place], [place] Dx) [phone] Social History Tobacco Use Types Packs/Day Years Used Date Smoking Tobacco: Never Smokeless Tobacco: Never Alcohol Use Standard Drinks/Week Comments Yes 7 (1 standard drink = 0.6 oz pure alcoho l) Alcohol Habits Answer Date Recorded How often do you have a drink containing 4 or more times a w [place] 02/01/2020 alcohol? How many drinks containing alcohol do you have Not asked on a typical day when you are drinking? How often do you have six or more drinks on one Not asked occasion? Comment: Not asked Sex Assigned at Date Recorded Not on file documented as of this encounter Progress Notes Stephanie Soto MD - 02/18/2021 12:45 PM CST F/u after B dti recon does think implant is larger than natural breast but doesn't want surgery. Having shooting pains intermittent not caused by activity Imp Probable nerve pains Plan Does need breast exam Reassured patient Should see me in 6-12 months for exam Cont to follow with oncology Video Visit: Due to the current pandemic, a video visit was performed today. Patient was at home. I spent 10 minutes with the patient RESSOR MECHANIC BUS documented in this encounter Plan of Treatment Not on filedocumented as of this encounter Visit Diagnoses Diagnosis Personal history of malignant neoplasm o f breast - Primary documented in this encounter Care Teams Drum Dyeing Machine Operator Relationship Specialty Start Date End Date Mary Kay Lr, PSYCH SOCIAL WORKER, UTILITY BAGGER PCP - General Nurse Practitioner 12/01/17 04/23/21 [address] [place] [address] documented as of this encounter
--- OUTSIDE RECORDS SUMMARY | 2021-11-06 20:37 | XMS_ITS | Encounter Summary ---
:1975 Author Organization [facility] Address [address], [place] [address] Care Team Providers Name Role Phone Mary Kay Lr APRN, CNP Primary Care Provider [phone] Encounter Details Date Type Department Care Team Description 12/11/2020 Notes/Orders [facility] Cancer Care Lori Ramos, at [place] Tee Mendoza APRN, CNP Oncology [address] [place] [address] [place] [address] [phone] Social History Tobacco Use Types Packs/Day Years Used Date Smoking Tobacco: Never Smokeless Tobacco: Never Alcohol Use Standard Drinks/Week Comments Yes 7 (1 standard drink = 0.6 oz pure alcoho l) Alcohol Habits Answer Date Recorded How often do you have a drink containing 4 or more times a w [place] 02/01/2020 alcohol? How many drinks containing alcohol [...] on filedocumented in this encounter Care Teams Otorhinolaryngologist Relationship Specialty Start Date End Date Mary Kay Lr APRN, ABRASIVE SAWYER PCP - General Nurse Practitioner 12/01/17 04/23/21 [address] [place] [address] documented as of this encounter
--- OUTSIDE RECORDS SUMMARY | 2021-11-06 20:37 | XMS_ITS | Encounter Summary ---
:1975 Author Organization [facility] Address [address], [place] [address] Care Team Providers Name Role Phone Mary Kay Lr APRN, ELECTRICIAN MANAGER Primary Care Provider [phone] Encounter Details Date Type Department Care Team Description 12/22/2020 [facility] Cancer Vance Martinez MD Center at [address] [place] [address] [place] [address] [place] [address] Social History Tobacco Use Types Packs/Day Years Used Date Smoking Tobacco: Never Smokeless Tobacco: Never Alcohol Use Standard Drinks/Week Comments Yes 7 (1 standard drink = 0.6 oz pure alcoho l) Alcohol Habits Answer Date Recorded How often do you have a drink containing 4 or more times a w [place] 02/01/2020 alcohol? How many drinks containing alcohol [...] on filedocumented in this encounter Care Teams Hoe Runner Relationship Specialty Start Date End Date Mary Kay Lr, MARQUES, ELECTRICIAN MANAGER PCP - General Nurse Practitioner 12/01/17 04/23/21 [address] [place] [address] documented as of this encounter
--- OUTSIDE RECORDS SUMMARY | 2021-11-06 20:37 | XMS_ITS | Encounter Summary ---
:1975 Author Organization [facility] Address [address] [place] [address] Care Team Providers Name Role Phone Mary Kay Lr APRN, STREET LIGHT INSPECTOR Primary Care Provider [phone] Encounter Details Date Type Department Care Team Description 12/06/2020 [facility] Vance [facility] MD Center at [address] Chemo Therapy [place] [address] [place] [address] [place] [address] Social History Tobacco Use Types Packs/Day Years Used Date Smoking Tobacco: Never Smokeless Tobacco: Never Alcohol Use Standard Drinks/Week Comments Yes 7 (1 standard drink = 0.6 oz pure alcoho l) Alcohol Habits Answer Date Recorded How often do you have a drink containing 4 or more times a w [place] 02/01/2020 alcohol? How many drinks containing alcohol [...] on filedocumented in this encounter Care Teams Primer Charger Relationship Specialty Start Date End Date Mary Kay Lr, MARQUES, STREET LIGHT INSPECTOR PCP - General Nurse Practitioner 12/01/17 04/23/21 [address] [place] [address] documented as of this encounter
--- OUTSIDE RECORDS SUMMARY | 2021-11-06 20:37 | XMS_ITS | Encounter Summary ---
:1975 Author Organization [facility] Address [address] [place], [place] [address] [place] [address] Care Team Providers Name Role Phone Mary Kay Lr APRN, TAMPING MACHINE OPERATOR Primary Care Provider [phone] Reason for Visit Reason Comments Knee Problem Encounter Details Date Type Department Care Team Description 11/05/2020 [facility] [place] Josesito Farrell , Pain in both knees, - Physical Therapy PT unspecified chronicity [address] [address] Fred Gupta (Primary Dx) [place] [address] [place] [address] [phone] (Wo rk) Social History Tobacco Use Types Packs/Day Years Used Date Smoking Tobacco: Never Smokeless Tobacco: Never Alcohol Use Standard Drinks/Week Comments Yes 7 (1 standard drink = 0.6 oz pure alcoho l) Alcohol Habits Answer Date Recorded How often do you have a drink containing 4 or more times a w [place] 02/01/2020 alcohol? How many drinks containing alcohol do you have Not asked on a typical day when you are drinking? How often do you have six or more drinks on one Not asked occasion? Comment: Not asked Sex Assigned at Date Recorded Not on file documented as of this encounter Progress Notes Josesito Farrell, PT - 11/05/2020 12:00 PM CDT [facility] Physical Therapy Progress Note Visit Number: 2 Initial Certification Period: 10/10/2020 to 01/08/21 Referring Provider: Jhon Nayak Visit Diagnosis: 1. Pain in both knees, unspecified chronicity ?? Precautions: Malignant neoplasm of upper-inner quadrant of right breast in female, estrogen receptorpositive, HIV asymptomatic Problem List Patient Active Problem List Diagnosis ??? S/P [...] right breast in female, estrogen receptor positive(HRC) ?? Orders: Evaluate & treat Onset/Referral Date: few months - more acute onset SUBJECTIVE: Cristiana reports that she is feeling better compared to initial evaluation. She is still having soreness at the end of hike and climbing rock pile but better than previously. Exercises have been going well - getting easier. Going up stairs not too bad now. Going down stairs still some pain. OBJECTIVE Current Objective Findings: ROM: AROM Left Extension ROM: WNL Flexion ROM: WNL Right Extension ROM: WNL Flexion ROM: WNL * some mild pain at end ranges of motion for both knees Strength: Left: Knee Flexion: 5/5 Knee Extension: 5/5 Hip Extension: 4/5 Hip Abduction: 4/5 Right: Knee Flexion: 5/5 Knee Extension: 5/5 Hip Extension: 4/5 Hip Abduction: 4/5 Treatment/Education Today: Therapeutic exercise x 40 minutes: - objective measures as noted above Supine Bridge - 1-2 x daily - 7 x weekly - 1 sets - 5-20 reps - 1 hold * staggered bridge x 10 reps bilaterally Clamshell with Resistance - 1-2 x daily - 7 x weekly - 1 sets - 10-20 reps - 1 hold * discussed ways of making more challenging when ready including ankle weight or band Supine Straight Leg Raises - 1-2 x daily - 7 x weekly - 1 sets - 10-20 reps - 1 hold * discussed ways of making more challenging when ready including ankle weight or band Standing Hip Abduction with Counter Support - 1-2 x daily - 7 x weekly - 1 sets - 10-20 reps * discussed ways of making more challenging when ready including ankle weight or band Heel rises with counter support - 1-2 x daily - 7 x weekly - 1 sets - 10-20 reps - progress to up with 2 and down with 1. When ready then transition to single leg heel raises Supine Heel Slide - 10 reps sit to stand x 15 reps without pain. Described building up to 20 reps then adding in 10-15 pounds weight for front squat. Timed Code Treatment Minutes: 40 Total Treatment Minutes: 40 Current Home Exercise Program List: Access Code: [email or web address] Supine Bridge - 1-2 x daily - [...] some progressions of these exercises as well ASSESSMENT/PROGRESS TOWARD GOALS: Cristiana is less symptomatic compared to previous session. She tolerated progressions of the exercises well today. More tolerant to loading and activity in general. Functional Goals/Outcomes: HEP/Independent Management: Demonstrate independence with HEP and [...] in symptoms or limitations in 6-8 weeks. PLAN: Progress to single leg exercises next session if well tolerated - step ups and downs and side step up documented in this encounter Plan of Treatment Not on filedocumented as of this encounter Visit Diagnoses Diagnosis Pain in both knees, unspecified chronici ty - Primary documented in this encounter Care Teams Warehouse Supervisor 3Rd Shift Relationship Specialty Start Date End Date Mary Kay Lr, BARREL CAP SETTER, TAMPING MACHINE OPERATOR PCP - General Nurse Practitioner 12/01/17 04/23/21 [address] [place] [address] documented as of this encounter
--- OUTSIDE RECORDS SUMMARY | 2021-11-06 20:37 | XMS_ITS | Encounter Summary ---
:1975 Author Organization [facility] Address [address], [place] [address] Care Team Providers Name Role Phone Mary Kay Lr APRN, ICE CARVER Primary Care Provider [phone] Reason for Visit Procedure/Equipment (Routine) - Incomplete Specialty Diagnoses / Procedures Referred By Contact Refer red To Contact Diagnoses Malignant neoplasm of overlapping sites of right breast in female, estrogen receptor positive (HRC) Encounter for screening mammogram for malignant neoplasm of breast Lori Ramos APRN, Procedures MM Mammogram Screening Lt W 3D Adelfo W CAD ICE CARVER [address] [place] [address] Referral ID Status Reason Start Date Expiration Date Visits V isits Requested Authorized [id number] Incomplete 11/28/2020 02/27/2022 1 1 Encounter Details Date Type Department Care Team Description 12/21/2020 Ancillary Procedure [facility] [facility] Lori Ramos [address] [facility] MARQUES Cat, [place] [address] [address] [facility] [phone] [place] [address] (Wo rk) Social History Tobacco Use Types Packs/Day Years Used Date Smoking Tobacco: Never Smokeless Tobacco: Never Alcohol Use Standard Drinks/Week Comments Yes 7 (1 standard drink = 0.6 oz pure alcoho l) Alcohol Habits Answer Date Recorded How often do you have a drink containing 4 or more times a w [place] 02/01/2020 alcohol? How many drinks containing alcohol [...] sults for this SCREENING LT W 3D DRYING MACHINE RECEIVER of overlapping sites pr ocedure are in ADELFO W CAD of right breast in the resul ts female, estrogen section. receptor positive (HRC) Encounter for screening mammogram for malignant neoplasm of breast documented in this encounter Results MM Mammogram Screening Lt W 3D Adelfo W CAD (12/21/2020 11:42 AM DRYING MACHINE RECEIVER) Anatomical Region Laterality Modality Breast Left Mammography Specimen (Source) Anatomical Location Collection Method / Collectio n Time Received Time / Laterality Volume Impressions 12/21/2020 2:59 PM DRYING MACHINE RECEIVER : ACR BI-RADS Category 1: Negative RECOMMENDATION: Follow Up Imaging in 12 months - Left The results and recommendations of this examination will be communicated to the patient. Narrative 12/21/2020 2:59 PM DRYING MACHINE RECEIVER MM MAMMOGRAM SCREENING LT W 3D ADELFO [...] evidence of mal ignancy. ?? Lori Ramos APRN, ICE CARVER RAD LIONEL documented in this encounter Visit Diagnoses Not on filedocumented in this encounter Care Teams Cotton Grader Relationship Specialty Start Date End Date Mary Kay Lr HI TEACHER, ICE CARVER PCP - General Nurse Practitioner 12/01/17 04/23/21 [address] [place] [address] documented as of this encounter
--- OUTSIDE RECORDS SUMMARY | 2021-11-06 20:37 | XMS_ITS ---
:1975 Author [facility] Address [address], [place] [address] Care Team Providers Name Role Phone Kelli Lewis MD Primary Care Provider [phone] Active Problems Problem Noted Date Osteopenia 09/03/2021 Malignant neoplasm of upper-inner quadrant of right br east in female, 01/19/2020 estrogen receptor positive Invasive lobular carcinoma of right breast, stage 1 Overview: Added automatically from request for flor santiago [id number] Malignant neoplasm of overlapping sites of right breas t in female, 12/14/2019 estrogen receptor positive Cancer Staging: Clinical: Stage IA (cT1c , cN0, cM0, G2, ER+, UT+, HER2-) - Unsigned Pathologic: Stage IA (pT1c, pN0(sn), cM0 , G2, ER+, UT+, HER2-) - Signed by Briana ePrez MB, [facility] on 02/23/2020 Asymptomatic HIV infection 08/06/2017 Non-seasonal allergic rhinitis due to pollen 8 Plantar fasciitis 11/25/2016 S/P hysterectomy 07/20/2015 Asthma 12/12/2003 Overview: LW Onset: ; Asthma NOS Current Oncology Plans No current plan information found. Past Plans ONCOLOGY TREATMENT Plan Name Start Discontinue Treatment Medications Discontinue Plan Cycles Date Date Reason Provider DOCEtaxel 2 03/05/2021 ALBUterol sulfate Therapy Ding, 4 of 4 CYCLOPHOSPHAMID 021 HFAalteplase (CATHFLO Complete Ch ristine cycles E (21D:1) x 4 ACTIVASE)samantha Duque MD started cycles with andrew (aka CYTOXAN) pegfilgrastim infusiondexamethasone support on day (DECADRON)dexamethason 2 e-ondansetron IVPBdiphenhydrAMINE (BENADRYL)DOCEtaxel (aka TAXOTERE) chemo infusionEPINEPHrine (EPIPEN)famotidine (PEPCID)heparinLORazep am (ATIVAN)methylPREDNISo lone sodium succinate (SOLU-medrol)ondansetr on (ZOFRAN)pegfilgrastim on-body (NEULASTA ONPRO)pegfilgrastim-cb qv (UDENYCA)prochlorperaz ine (COMPAZINE)sodium chloride 0.9 %sodium chloride 0.9% Radiation Treatments No radiation treatments are documented for this patient in [facility]. Treatments may have been administered in another system. Resolved Problems Problem Noted Date Resolved Date [...]
--- OUTSIDE RECORDS SUMMARY | 2021-11-06 20:37 | XMS_ITS | Encounter Summary ---
:1975 Author Organization [facility] Address [address] [place] [address] Care Team Providers Name Role Phone Mary Kay Lr APRN, DITCH REPAIRER Primary Care Provider [phone] Reason for Visit Reason Comments Video Visit FOLLOW-UP,HIV Encounter Details Date Type Department Care Team Description 01/16/2021 Tele[facility]icine [facility] Mike Hicks Asy mptomatic HIV infection (HRC) (Primary Dx); 401 Infectious MD Encounter for long-term (current) use of medications Disease [address] [place] [phone] Social History Tobacco Use Types Packs/Day Years Used Date Smoking Tobacco: Never Smokeless Tobacco: Never Alcohol Use Standard Drinks/Week Comments Yes 7 (1 standard drink = 0.6 oz pure alcoho l) Alcohol Habits Answer Date Recorded How often do you have a drink containing 4 or more times a w [place] 02/01/2020 alcohol? How many drinks containing alcohol do you have Not asked on a typical day when you are drinking? How often do you have six or more drinks on one Not asked occasion? Comment: Not asked Sex Assigned at Date Recorded Not on file documented as of this encounter Progress Notes Mike Hicks MD - 01/16/2021 4:00 PM CST This patient comes in for follow up [...] denies any side effects to this treatment. Since her last visit, she has been diagnosed with breast cancer. She had a unilateral mastectomy in February 2020. She had a reconstruction at that time. She completed her radiation at the end of May 2020. She is now on letrozole. She denies any fevers or chills. No night sweats. Her weight has been stable. She has a good appetite. No abdominal pain or diarrhea. She has not contracted COVID. She has had her booster vaccination. She has already had her flu shot. Social history They recently bought a [place] of the [facility] where she they have their horses. No illegal drugs. No IV drug abuse. No recent travel. She previously has spent time in [place], [place], [place] and [place]. She took a trip to the [place] a few years ago. She previously worked as a [employer]. Patient Active Problem List Diagnosis ??? S/P hysterectomy ??? Asthma (HRC) ??? Plantar fasciitis ??? Asymptomatic HIV infection (HRC) ??? Non-seasonal allergic rhinitis due to pollen ??? Malignant neoplasm of overlapping sites of right breast in female, estrogen receptor positive (HRC) ??? Invasive lobular carcinoma of right breast, stage 1 (HRC) ??? Malignant neoplasm of upper-inner quadrant of right breast in female, estrogen receptor positive(HRC) Family history Her grandmother had amyotrophic lateral sclerosis. Her father is going through treatment for multiple myeloma. Her mother has depression. ALL: NKDA There were no vitals taken for this visit. As this was a phone visit. She is answering questions appropriately over the phone. She is in no acute distress. LABS: HIV fourth-generation test positive HIV confirmation positive HIV mutation analysis negative HIV integrase genotype negative Toxoplasma serology negative CMV serology positive Tuberculosis gold negative Hep C negative Hep B immune Hep A immune Component Latest Ref Rng & Units 12/21/2020 T3 % 62.1 - 85.0 % 80.4 T3 Absolute 500-2,544 /UL 1,143 T4 % 31.6 - 65.7 % 40.0 T4 Absolute 337-1,687 /UL 569 T8 % 10.0 - 40.0 % 41.9 (H) T8 Absolute 140 - 907 /UL 596 T4/T8 Ratio 0.8 - 3.7 1.0 HIV Interpretation Not Detected Not Detected Copies mL <30 copies/mL <30 Logcopies mL <1.47 log copies/mL <1.47 A/P 46 -year-old female with HIV, detected on a life insurance exam, confirmed on testing through [facility] She is tolerating treatment with biktarvy well. She has obtained full viral suppression with a CD4 count of 569. No recent infections. She has had a hysterectomy. Breast cancer This was found on routine mammogram. She has had surgery and reconstruction. She has finished her chemotherapy. She continues on letrozole. She has had her COVID vaccinations and booster. She has already received her flu shot. PLAN: Continue biktarvy Follow-up in 6 months with labs prior to the visit Greater than 20 minutes are spent in review of the chart and in discussion with the patient. Mike Hicks MD 01/16/2021 MACHINE REPAIRER documented in this encounter Plan of Treatment Not on filedocumented as of this encounter Visit Diagnoses Diagnosis Asymptomatic HIV infection (HRC) - Prima ry Asymptomatic human immunodeficiency viru s (HIV) infection status Encounter for long-term (current) use of medications Encounter for long-term (current) use of other medications documented in this encounter Care Teams Group Sales Representative Relationship Specialty Start Date End Date Mary Kay Lr, DECKHAND TUNA BOAT, DITCH REPAIRER PCP - General Nurse Practitioner 12/01/17 04/23/21 [address] [place] [place] [address] documented as of this encounter
--- OUTSIDE RECORDS SUMMARY | 2021-11-06 20:37 | XMS_ITS | Encounter Summary ---
:1975 Author Organization [facility] Address [address], [place] [address] Care Team Providers Name Role Phone Mary Kay Lr APRN, HVAC ENGINEER Primary Care Provider [phone] Encounter Details Date Type Department Care Team Description 12/14/2020 [facility] Vance Martinez [facility] Center at [address] [place]o [place] [address] [place] [address] [place] [address] Social History Tobacco Use Types Packs/Day Years Used Date Smoking Tobacco: Never Smokeless Tobacco: Never Alcohol Use Standard Drinks/Week Comments Yes 7 (1 standard drink = 0.6 oz pure alcoho l) Alcohol Habits Answer Date Recorded How often do you have a drink containing 4 or more times a w [place] 02/01/2020 alcohol? How many drinks containing alcohol [...] on filedocumented in this encounter Care Teams Shuttleless Loom Weaver Relationship Specialty Start Date End Date Mary Kay Lr, MARQUES, HVAC ENGINEER PCP - General Nurse Practitioner 12/01/17 04/23/21 [address] [place] [address] documented as of this encounter
--- OUTSIDE RECORDS SUMMARY | 2021-11-06 20:37 | XMS_ITS | Encounter Summary ---
:1975 Author Organization [facility] Address [address], [place] [address] Care Team Providers Name Role Phone Mary Kay Lr APRN, CNP Primary Care Provider [phone] Encounter Details Date Type Department Care Team Description 01/04/2021 Immunization [facility] Need for p rophylactic Medicine vaccination and [address] [place] [address] influenza (Primary Dx) [phone] Social History Tobacco Use Types Packs/Day Years Used Date Smoking Tobacco: Never Smokeless Tobacco: Never Alcohol Use Standard Drinks/Week Comments Yes 7 (1 standard drink = 0.6 oz pure alcoho l) Alcohol Habits Answer Date Recorded How often do you have a drink containing 4 or more times a w [place] 02/01/2020 alcohol? How many drinks containing alcohol do you have Not asked on a typical day when you are drinking? How often do you have six or more drinks on one Not asked occasion? Comment: Not asked Sex Assigned at Date Recorded Not on file documented as of this encounter Plan of Treatment Not on filedocumented as of this encounter Visit Diagnoses Diagnosis Need for prophylactic vaccination and in oculation against influenza - Primary documented in this encounter Care Teams Vineyard Supervisor Relationship Specialty Start Date End Date Mary Kay Lr APRN, CERTIFIED PERSONAL FINANCE COUNSELOR PCP - General Nurse Practitioner 12/01/17 04/23/21 [address] [place] [address] documented as of this encounter
--- OUTSIDE RECORDS SUMMARY | 2021-11-06 20:37 | XMS_ITS | Encounter Summary ---
:1975 Author Organization [facility] Address [address], [place] [address] Care Team Providers Name Role Phone Kelli Lewis MD Primary Care Provider [phone] Reason for Visit Reason Comments Refill Encounter Details Date Type Department Care Team Description 06/08/2021 Refill [facility] Cancer Care at Jessica Jamil MD Refill [address] [address] [facility] [place] [address] [phone] Social History Tobacco Use Types Packs/Day Years Used Date Smoking Tobacco: Never Smokeless Tobacco: Never Alcohol Use Standard Drinks/Week Comments Yes 7 (1 standard drink = 0.6 oz pure alcoho l) Alcohol Habits Answer Date Recorded How often do you have a drink containing 4 or more times a w [place] 02/01/2020 alcohol? How many drinks containing alcohol do you have Not asked on a typical day when you are drinking? How often do you have six or more drinks on one Not asked occasion? Comment: Not asked Sex Assigned at Date Recorded Not on file documented as of this encounter Nursing Notes Summer Cifuentes RN - 06/10/2021 9:12 AM CDT Pt of Dr. Cano with h/o breast cancer. Last filled 05/29/2020. Last visit 03/05/21 and next visit09/03/21. Refilled per protocol. documented in this encounter Plan of Treatment Not on filedocumented as of this encounter Visit Diagnoses Not on filedocumented in this encounter Care Teams Carrier Loader Relationship Specialty Start Date End Date Kelli Lewis MD PCP - General Family Practice 04/24/[address] [place] [address] documented as of this encounter
--- OUTSIDE RECORDS SUMMARY | 2021-11-06 20:37 | XMS_ITS | Encounter Summary ---
:1975 Author Organization [facility] Address [address], [place] [address] Care Team Providers Name Role Phone DeepjordanMary Kay APRN, SHIFT SUPERVISOR RN Primary Care Provider Reason for Visit Reason Comments Lab Questions Encounter Details Date Type Department Care Team Description 11/29/2020 Telephone Specialty Center [address] Chante Hicks MD Lab Questions Infectious Disease [address] [place] [address] [place] [address] [phone] Social History Tobacco Use Types Packs/Day Years Used Date Smoking Tobacco: Never Smokeless Tobacco: Never Alcohol Use Standard Drinks/Week Comments Yes 7 (1 standard drink = 0.6 oz pure alcoho l) Alcohol Habits Answer Date Recorded How often do you have a drink containing 4 or more times a w [place] 02/01/2020 alcohol? How many drinks containing alcohol do you have Not asked on a typical day when you are drinking? How often do you have six or more drinks on one Not asked occasion? Comment: Not asked Sex Assigned at Date Recorded Not on file documented as of this encounter Nursing Notes Delmis Cross RN - 11/30/2020 12:44 PM CDT Clinical Transplant Coordinator reviewed pt chart. No changes need to be made. Pt can have labs done as she has planned. Willclose encounter. Thank-you. Delmis Cross RN 11/30/2020, 12:45 PM Grace Moore - 11/30/2020 9:48 AM CDT FYI called patient to let her know to have labs done about 2 weeks prior to her appt patient states she has another appt about a month prior to her appt and will have them done at that time. If they need to be done later then this please advise Steffanie Rodrigues - 11/29/2020 2:23 PM CDT Miscellaneous Questions [Appt Center: If this call is after 3 p.m., communicate to patient: If we are not able to get back to you by the end of the day and your symptoms worsen please contact the Careline at [phone] OR at .] Is this a question/concern or an FYI? Question/Concern What is your question or concern? Patient have schedule video appointment on 01/16/2021 and would like to know how early can she come in to do labs ? Have you recently been seen for this? Yes Is it okay to leave a detailed message on your voicemail? Yes Steffanie Rodrigues documented in this encounter Plan of Treatment Not on filedocumented as of this encounter Visit Diagnoses Not on filedocumented in this encounter Care Teams Screedman/Laborer Relationship Specialty Start Date End Date Mary Kay Lr, AUTOMOTIVE PARTS INTERPRETER, SHIFT SUPERVISOR RN PCP - General Nurse Practitioner 12/01/17 04/23/21 [address] [place], [place] [address] documented as of this encounter
--- OUTSIDE RECORDS SUMMARY | 2021-11-06 20:37 | XMS_ITS | Encounter Summary ---
:1975 Author Organization [facility] Address [address], [place] [address] Care Team Providers Name Role Phone Kelli Lewis MD Primary Care Provider [phone] Encounter Details Date Type Department Care Team Description 01/23/2021 [facility] Vance Martinez MD Center at [address] Chemo Therapy [place] [address] [place] [address] [place] [address] Social History Tobacco Use Types Packs/Day Years Used Date Smoking Tobacco: Never Smokeless Tobacco: Never Alcohol Use Standard Drinks/Week Comments Yes 7 (1 standard drink = 0.6 oz pure alcoho l) Alcohol Habits Answer Date Recorded How often do you have a drink containing 4 or more times a w [place] 02/01/2020 alcohol? How many drinks containing alcohol [...] on filedocumented in this encounter Care Teams Box Order Person Relationship Specialty Start Date End Date Kelli Lewis MD PCP - General Family Practice 04/24/21 [address] [place] [address] documented as of this encounter
--- OUTSIDE RECORDS SUMMARY | 2021-11-06 20:37 | XMS_ITS | Encounter Summary ---
:1975 Author Organization [facility] Address [address] [place] [address] Care Team Providers Name Role Phone Kelli Lewis MD Primary Care Provider [phone] Encounter Details Date Type Department Care Team Description 10/11/2021 Lab Visit [facility] HIV infection Laboratory (HRC) [address] [place] [address] Social History Tobacco Use Types Packs/Day Years Used Date Smoking Tobacco: Never Smokeless Tobacco: Never Alcohol Use Standard Drinks/Week Comments Yes 7 (1 standard drink = 0.6 oz pure alcoho l) Alcohol Habits Answer Date Recorded How often do you have a drink containing 4 or more times a w [place] 02/01/2020 alcohol? How many drinks containing alcohol [...] HIV Resul ts for this CDT infection (C) procedure ar e in the results section. HIV-1 RNA QUANT Routine 10/11/2021 4:30 PM Asymptomatic HIV Re sults for this CDT infection (C) procedure ar e in the results section. CBC AND DIFFERENTIAL Routine 10/11/2021 4:30 PM Asymptomatic H IV Results for this PANEL CDT infection (C) procedure ar e in the results section. [...] results section. documented in this encounter Results (ABNORMAL) UA Micro If: Clean Catch (10/11/2021 5:10 PM CDT) [facility] Method Time Signature Urine Color Straw Straw-Yellow 10/11/2021 [place] 5:14 PM CDT LABORATORY Urine Clarity Clear Clear 10/11/2021 [place] 5:14 PM CDT LABORATORY Specific <=1.005 (A) 1.005 - 10/11/2021 [place], 1.030 5:14 PM CDT LABORATORY Urine PH Urine 6.5 5.0 - 8.0 10/11/2021 [place] 5:14 PM CDT LABORATORY Protein, Negative Neg/Trace 10/11/2021 [place] Urine Qual 5:14 PM CDT LABORATORY (mg/dL) Glucose Urine Negative Negative 10/11/2021 [place] Qual (mg/dL) 5:14 PM CDT LABORATORY Ketones, Negative Negative 10/11/2021 [place] Urine (mg/dL) 5:14 PM CDT LABORATORY Urobilinogen, 0.2 <2.0 10/11/2021 [place] Urine (EU/dL) 5:14 PM CDT LABORATORY Bilirubin Negative Negative 10/11/2021 [place] Urine 5:14 PM CDT LABORATORY Blood, Urine Negative Neg/Trace 10/11/2021 [place] 5:14 PM CDT LABORATORY Nitrite Urine Negative Negative 10/11/2021 [place] 5:14 PM CDT LABORATORY Leukocyte Negative Negative 10/11/2021 [place] Est. 5:14 PM CDT LABORATORY Urine Source Clean Catch 10/11/2021 [place] 5:14 PM CDT LABORATORY Specimen Anatomical Collection Method Collection Time Receive d Time (Source) Location / / Volume Laterality Urine URINE SPECIMEN Non-blood 10/11/2021 5:10 PM 022 5:10 COLLECTION, CLEAN Collection / CDT PM CDT CATCH / Unknown Unknown Mike Hicks MD LAB_1 Performing Organization Address City/State/ZIP Code Phon e Number [facility] [address] [place] [address] TB QuantiFERON Gold Plus Mitogen (10/11/2021 4:30 PM CDT) athologist Signature MITOGEN >10.000 IU/mL 10/13/2021 [facility] 3:21 PM CDT LABORATORY Specimen Anatomical Collection Method / Collection Time Recei bruno Time (Source) Location / Volume Laterality Blood Venipuncture / 10/11/2021 4:30 10/11/2021 4:38 Unknown PM CDT PM CDT Mike Hicks MD LAB_1 Performing Organization Address [facility] Phon e Number [facility] [address] [place] [address] TB QuantiFERON Gold Plus TB2 (10/11/2021 4:30 PM CDT) athologist Signature TB2 0.084 IU/mL 10/13/2021 [facility] 3:22 PM CDT LABORATORY Specimen Anatomical Collection Method / Collection Time Recei bruno Time (Source) Location / Volume Laterality Blood Venipuncture / 10/11/2021 4:30 10/11/2021 4:38 Unknown PM CDT PM CDT Mike Hicks MD LAB_1 Performing Organization Address [facility] Phon e Number [facility] [address] [place] [address] TB QuantiFERON Gold Plus TB1 (10/11/2021 4:30 PM CDT) athologist Signature TB1 0.082 IU/mL 10/13/2021 [facility] 3:22 PM CDT LABORATORY Specimen Anatomical Collection Method / Collection Time Recei bruno Time (Source) Location / Volume Laterality Blood Venipuncture / 10/11/2021 4:30 10/11/2021 4:38 Unknown PM CDT PM CDT Mike Hicks MD LAB_1 Performing Organization Address [facility] Phon e Number [facility] [address] [place] [address] TB QuantiFERON Gold Plus NIL (10/11/2021 4:30 PM CDT) [facility] [employer] Method Time Signature TB QuantiFERON Negative, M. Negative, M. 10/13/2021 [facility] T Gold Plus tuberculosis tuberculosis 3:23 PM LABORATORY Infection NOT Infection NOT CDT likely likely NIL 0.080 IU/mL 10/13/2021 [facility] 3:23 PM LABORATORY CDT TB1-NIL 0.00 IU/mL 10/13/2021 [facility] 3:23 PM LABORATORY CDT TB2-NIL 0.00 IU/mL 10/13/2021 [facility] 3:23 PM LABORATORY CDT Mitogen-NIL 9.92 IU/mL 10/13/2021 [facility] 3:23 PM LABORATORY CDT Specimen Anatomical Collection Method / Collection Time Recei bruno Time (Source) Location / Volume Laterality Blood Venipuncture / 10/11/2021 4:30 10/11/2021 4:38 Unknown PM CDT PM CDT Narrative [facility] - 10/13/2021 3:23 P M CDT [...] For more info rmation refer to: https://www.cdc.gov/mmwr/preview/mmwrhtm l/bf8553m9.htm. Mike Hicks MD LAB_1 Performing Organization Address City/State/ZIP Code Phon e Number [facility] [address] [place] [address] (ABNORMAL) Complete Blood Count-W/Diff (10/11/2021 4:30 PM CDT) [facility] Method Time Signature WBC 4.9 3.5 - 10.5 10/11/2021 [place] x10(9)/L 4:49 PM CDT LABORATORY RBC 5.07 (H) 3.90 - 10/11/2021 [place] 5.03 4:49 PM CDT LABORATORY x10(12)/L Hemoglobin 14.6 12.0 - 10/11/2021 [place] 15.5 g/dL 4:49 PM CDT LABORATORY HCT 44.4 34.9 - 10/11/2021 [place] 44.5 % 4:49 PM CDT LABORATORY MCV 87.6 80.0 - 10/11/2021 [place] 100.0 fL 4:49 PM CDT LABORATORY MCH 28.8 27.6 - 10/11/2021 [place] 33.3 pg 4:49 PM CDT LABORATORY MCHC 32.9 31.5 - 10/11/2021 [place] 35.2 g/dL 4:49 PM CDT LABORATORY RDW 12.6 11.9 - 10/11/2021 [place] 15.5 % 4:49 PM CDT LABORATORY Platelets 209 150 - 450 10/11/2021 [place] x10(9)/L 4:49 PM CDT LABORATORY Automated NRBC 0 <=0 /100 10/11/2021 [place] WBC 4:49 PM CDT LABORATORY Neutrophil 2.5 1.7 - 7.0 10/11/2021 [place] Absolute 10(9)/L 4:49 PM CDT LABORATORY Lymphocyte 1.8 1.0 - 4.8 10/11/2021 [place] Absolute 10(9)/L 4:49 PM CDT LABORATORY Monocytes 0.3 0.2 - 0.9 10/11/2021 [place] Absolute 10(9)/L 4:49 PM CDT LABORATORY Eosinophil 0.3 0.0 - 0.5 10/11/2021 [place] Absolute 10(9)/L 4:49 PM CDT LABORATORY Basophil 0.0 0.0 - 0.3 10/11/2021 [place] Absolute 10(9)/L 4:49 PM CDT LABORATORY Immature Gran % 0.4 0.0 - 0.5 10/11/2021 [place] % 4:49 PM CDT LABORATORY Specimen Anatomical Collection Method / Collection Time Recei bruno Time (Source) Location / Volume Laterality Blood Venipuncture / 10/11/2021 4:30 10/11/2021 4:39 Unknown PM CDT PM CDT Mike Hicks MD LAB_1 Performing Organization Address City/State/ZIP Code Phon e Number [facility] [address] [place] [address] Treponema Screen (10/11/2021 4:30 PM CDT) [facility] gist Method Time Signature Treponema Screen 0.106 {s_co_ratio 10/11/2021 [facility] Result } 10:16 PM LABORATORY CDT Treponema Screen Non Non 10/11/2021 [facility] Interpretation Reactive Reactive 10:16 PM LABORATORY CDT Specimen Anatomical Collection Method / Collection Time Recei bruno Time (Source) Location / Volume Laterality Blood Venipuncture / 10/11/2021 4:30 10/11/2021 4:39 Unknown PM CDT PM CDT Mike Hicks MD LAB_1 Performing Organization Address City/State/ZIP Code Phon e Number [facility] [address] [place] [address] T Cell Ratio (blood only) (10/11/2021 4:30 PM CDT) athologist Signature CD3 (T Cells) % 80.6 62.1 - 10/12/2021 [facility] 85.0 % 1:38 PM CDT HOSPITAL CD3 (T Cells) 1,331 500 - 10/12/2021 [facility] Absolute 2,544 /UL 1:38 PM CDT HOSPITAL CD3/CD4 (T 42.5 31.6 - 10/12/2021 [facility] [place] Cells) % 65.7 % 1:38 PM CDT HOSPITAL CD3/CD4 (T 703 337 - 10/12/2021 [facility] [place] Cells) 1,687 /UL 1:38 PM CDT HOSPITAL [...] Organization Address City/State/ZIP Code Phon e Number [address] [address] (ABNORMAL) Lipid Panel and Direct LDL(If Needed) (10/11/2021 4:30 PM CDT) [facility] Method Time Signature Cholesterol 179 0 - 199 10/11/2021 [place] mg/dL 6:34 PM CDT LABORATORY Triglyceride 173 (H) <=149 10/11/2021 [place] mg/dL 6:34 PM CDT LABORATORY HDL Cholesterol 52 >=40 10/11/2021 [place] mg/dL 6:34 PM CDT LABORATORY LDL, Calculated 92 <130 10/11/2021 [place] mg/dL 6:34 PM CDT LABORATORY Non HDL Chol, 127 <=159 10/11/2021 [place] Calculated mg/dL 6:34 PM CDT LABORATORY Cholesterol/HDL 3.4 10/11/2021 [place] Ratio 6:34 PM CDT LABORATORY Hours Fasting 0 10/11/2021 [place] 6:34 PM CDT LABORATORY Specimen Anatomical Collection Method / Collection Time Recei bruno Time (Source) Location / Volume Laterality Blood Venipuncture / 10/11/2021 4:30 10/11/2021 4:39 Unknown PM CDT PM CDT Mike Hicks MD LAB_1 Performing Organization Address City/State/ZIP Code Phon e Number [facility] [address] [place] [address] HIV-1 RNA Quant by TMA (10/11/2021 4:30 PM CDT) [facility] Method Time Signature HIV Interp Not Not 10/14/2021 [facility] Detected Detected 12:08 PM [facility] CDT HIV Copies <30 <30 10/14/2021 [facility] per/ml copies/mL 12:08 PM [facility] LAB CDT HIV Log <1.47 <1.47 log 10/14/2021 [facility] Copies/ml copies/mL 12:08 PM [facility]AL LAB CDT Specimen Anatomical Collection Method / Collection Time Recei bruno Time (Source) Location / Volume Laterality Blood Venipuncture / 10/11/2021 4:30 10/11/2021 4:39 Unknown PM CDT PM CDT [facility] - 10/14/2021 12:08 PM CDT Test performed by Card Player Mediated Amplification (TMA). Mike Hicks MD LAB_1 Performing Organization Address [facility] Phon e Number [facility] [address] [address] Hgb A1c (10/11/2021 4:30 PM CDT) athologist Signature Hemoglobin A1C 5.1 <=5.6 % 10/11/2021 [place] 6:09 PM CDT LABORATORY Specimen Anatomical Collection Method / Collection Time Recei bruno Time (Source) Location / Volume Laterality Blood Venipuncture / 10/11/2021 4:30 10/11/2021 4:39 Unknown PM CDT PM CDT tIalo [facility] - 10/11/2021 6:09 PM CDT This Hemoglobin A1c assay has significan t interference with elevated Hemoglobin (HbF) and other Hemoglobin variants. In patients with results that do not correlate clinically, contact the laboratory for f dollyther direction. Mike Hicks MD LAB_1 Performing Organization Address [facility] e Number [facility] [address] [place] [address] Creatinine / GFR (10/11/2021 4:30 PM CDT) athologist Signature Creatinine 0.70 0.55 - 10/11/2021 [facility] 1.02 mg/dL 6:34 PM CDT LABORATORY GFR, Estimated >60 >60 10/11/2021 [place] mL/min/1.7 6:34 PM CDT LABORATORY 3m2 Specimen Anatomical Collection Method / Collection Time Recei bruno Time (Source) Location / Volume Laterality Blood Venipuncture / 10/11/2021 4:30 10/11/2021 4:39 Unknown PM CDT PM CDT Mike Hicks MD LAB_1 Performing Organization Address [facility] Phon e Number [facility] [address] [place] [address] BUN (10/11/2021 4:30 PM CDT) athologist Signature BUN 15 7 - 26 10/11/2021 [place] mg/dL 6:34 PM CDT LABORATORY Specimen Anatomical Collection Method / Collection Time Recei bruno Time (Source) Location / Volume Laterality Blood Venipuncture / 10/11/2021 4:30 10/11/2021 4:39 Unknown PM CDT PM CDT Mike Hicks MD LAB_1 Performing Organization Address [facility] Code Phon e Number [facility] [address] [place] [address] Bilirubin, Total & Direct (10/11/2021 4:30 PM CDT) athologist Signature Bilirubin, 0.3 0.2 - 1.2 10/11/2021 [place] Total mg/dL 6:34 PM CDT LABORATORY Bilirubin, 0.1 0.0 - 0.5 10/11/2021 [place] Direct mg/dL 6:34 PM CDT LABORATORY Specimen Anatomical Collection Method / Collection Time Recei bruno Time (Source) Location / Volume Laterality Blood Venipuncture / 10/11/2021 4:30 10/11/2021 4:39 Unknown PM CDT PM CDT Mike Hicks MD LAB_1 Performing Organization Address [facility]/ZIP Code Phon e Number [facility] [address] [place] [address] AST (10/11/2021 4:30 PM CDT) athologist Signature AST (SGOT) 26 10 - 40 U/L 10/11/2021 [place] 6:34 PM CDT LABORATORY Specimen Anatomical Collection Method / Collection Time Recei bruno Time (Source) Location / Volume Laterality Blood Venipuncture / 10/11/2021 4:30 10/11/2021 4:39 Unknown PM CDT PM CDT Mike Hicks MD LAB_1 Performing Organization Address City/[facility]/ZIP Code Phon e Number [facility] [address] [place], [place] [address] ALT (SGPT) (10/11/2021 4:30 PM CDT) athologist Signature ALT (SGPT) 20 0 - 55 U/L 10/11/2021 [facility] 6:34 PM CDT LABORATORY Specimen Anatomical Collection Method / Collection Time Recei bruno Time (Source) Location / Volume Laterality Blood Venipuncture / 10/11/2021 4:30 10/11/2021 4:39 Unknown PM CDT PM CDT Mike Hicks MD LAB_1 Performing Organization Address [facility] Code Phon e Number [facility] [address] [place] [address] documented in this encounter Visit Diagnoses Diagnosis Asymptomatic HIV infection (HRC) Asymptomatic human immunodeficiency viru s (HIV) infection status documented in this encounter Care Teams Push Button Switch Assembler Relationship Specialty Start Date End Date Kelli Lewis MD PCP - General Family Practice 04/24/21 [address] [facility] [place] [address] documented as of this encounter
[2021-11-06] MEDS: HYDROmorphone 0.5 mg/0.5 ml inj 1 MG IM (20:38)
--- OUTSIDE RECORDS SUMMARY | 2021-11-06 20:38 | XMS_ITS | Encounter Summary ---
:1975 Author Organization [facility] Address [address] [place] [address] Care Team Providers Name Role Phone Mary Kay Lr APRN, ELECTRICAL CAD DESIGNER Primary Care Provider [phone] Encounter Details Date Type Department Care Team Description 05/06/2020 Lab Visit [facility] Malign ant neoplasm of Laboratory overlapping sites of right [address] breast in female, [place] [address] receptor positive (HRC) [phone] Social History Tobacco Use Types Packs/Day Years Used Date Smoking Tobacco: Never Smokeless Tobacco: Never Alcohol Use Standard Drinks/Week Comments Yes 7 (1 standard drink = 0.6 oz pure alcoho l) Alcohol Habits Answer Date Recorded How often do you have a drink containing 4 or more times a w [place] 02/01/2020 alcohol? How many drinks containing alcohol [...] Name Priority Date/Time Associated Diagnosis Comme nts CBC AND DIFFERENTIAL STAT 05/06/2020 10:53 Malignant neopla sm Results for this PANEL AM CDT of overlapping sites procedu re are in of right breast in the resul ts female, estrogen section. receptor positive (HRC) COMPLETE BLOOD STAT 05/06/2020 10:53 Malignant neoplasm Res ults for this COUNT-W/DIFF AM CDT of overlapping sites procedu re are in of right breast in the resul ts female, estrogen section. receptor positive (HRC) COMP METABOLIC PANEL STAT 05/06/2020 10:53 Malignant neopla sm Results for this AM CDT of overlapping sites procedu re are in of right breast in the resul ts female, estrogen section. receptor positive (HRC) documented in this encounter Results (ABNORMAL) Complete Blood Count-W/Diff (05/06/2020 10:53 AM CDT) [facility] gist Method Time Signature WBC 6.9 3.5 - 10.5 05/06/2020 [facility] x10(9)/L 11:33 AM CDT LABORATORY RBC 3.98 3.90 - 05/06/2020 [facility] 5.03 11:33 AM CDT LABORATORY x10(12)/L Hemoglobin 11.7 (L) 12.0 - 05/06/2020 [facility] 15.5 g/dL 11:33 AM CDT LABORATORY HCT 36.3 34.9 - 05/06/2020 [facility] 44.5 % 11:33 AM CDT LABORATORY MCV 91.2 80.0 - 05/06/2020 [facility] 100.0 fL 11:33 AM CDT LABORATORY MCH 29.4 27.6 - 05/06/2020 [facility] 33.3 pg 11:33 AM CDT LABORATORY MCHC 32.2 31.5 - 05/06/2020 [facility] 35.2 g/dL 11:33 AM CDT LABORATORY RDW 14.9 11.9 - 05/06/2020 [facility] 15.5 % 11:33 AM CDT LABORATORY Platelets 249 150 - 450 05/06/2020 [facility] x10(9)/L 11:33 AM CDT LABORATORY Automated NRBC 0 <=0 /100 05/06/2020 [facility] WBC 11:33 AM CDT LABORATORY Neutrophil 4.7 1.7 - 7.0 05/06/2020 [facility] Absolute 10(9)/L 11:33 AM CDT LABORATORY Lymphocyte 1.3 1.0 - 4.8 05/06/2020 [facility] Absolute 10(9)/L 11:33 AM CDT LABORATORY Monocytes 0.7 0.2 - 0.9 05/06/2020 [facility] Absolute 10(9)/L 11:33 AM CDT LABORATORY Eosinophil 0.1 0.0 - 0.5 05/06/2020 [facility] Absolute 10(9)/L 11:33 AM CDT LABORATORY Basophil 0.1 0.0 - 0.3 05/06/2020 [facility] Absolute 10(9)/L 11:33 AM CDT LABORATORY Immature Gran % 2.5 (H) 0.0 - 0.5 05/06/2020 [facility] % 11:33 AM CDT LABORATORY Specimen Anatomical Collection Method / Collection Time Recei bruno Time (Source) Location / Volume Laterality Blood Venipuncture / 05/06/2020 10:53 Unknown AM CDT 11:31 AM CDT Jessica Cano MD LAB_1 Performing Organization Address City/State/ZIP Code Phon e Number [facility] [address] [place] [address] Comp Metabolic Panel - every 3 weeks (05/06/2020 10:53 AM CDT) athologist Signature Sodium 142 136 - 145 05/06/2020 [facility] mmol/L 11:53 AM CDT LABORATORY Potassium 4.5 3.5 - 5.1 05/06/2020 [facility] mmol/L 11:53 AM CDT LABORATORY Chloride 105 98 - 109 05/06/2020 [facility] mmol/L 11:53 AM CDT LABORATORY CO2 28 20 - 29 05/06/2020 [facility] mmol/L 11:53 AM CDT LABORATORY Anion Gap 9 7 - 16 05/06/2020 [facility] mmol/L 11:53 AM CDT LABORATORY Calcium 9.2 8.4 - 10.4 05/06/2020 [facility] mg/dL 11:53 AM CDT LABORATORY BUN 12 7 - 26 05/06/2020 [facility] mg/dL 11:53 AM CDT LABORATORY Creatinine 0.70 0.55 - 05/06/2020 [facility] 1.02 mg/dL 11:53 AM CDT LABORATORY GFR, Estimated >60 >60 05/06/2020 [facility] mL/min/1.7 11:53 AM CDT LABORATORY 3m2 Alkaline 82 40 - 150 05/06/2020 [facility] Phosphatase U/L 11:53 AM CDT LABORATORY AST (SGOT) 30 10 - 40 05/06/2020 [facility] U/L 11:53 AM CDT LABORATORY ALT (SGPT) 39 0 - 55 U/L 05/06/2020 [facility] 11:53 AM CDT LABORATORY Bilirubin, Total 0.3 0.2 - 1.2 05/06/2020 [facility] mg/dL 11:53 AM CDT LABORATORY Protein, Total 6.8 6.4 - 8.3 05/06/2020 [facility] g/dL 11:53 AM CDT LABORATORY Albumin 3.9 3.5 - 5.0 05/06/2020 [facility] g/dL 11:53 AM CDT LABORATORY Glucose 84 70 - 100 05/06/2020 [facility] mg/dL 11:53 AM CDT LABORATORY Comment: The given reference range is fo r the fasting state. Non-fasting reference range for glucose is 70 - 180 mg/dL. Hours Fasting Unknown 05/06/2020 11:53 AM CDT [facility] Specimen Anatomical Collection Method / Collection Time Recei bruno Time (Source) Location / Volume Laterality Blood Venipuncture / 05/06/2020 10:53 Unknown AM CDT 11:31 AM CDT Jessica Cano MD LAB_1 Performing Organization Address City/State/ZIP Code Phon e Number [facility] [address] [place] [address] documented in this encounter Visit Diagnoses Diagnosis Malignant neoplasm of overlapping sites of right breast in female, estrogen receptor positive (HRC) documented in this encounter Care Teams Cream Cheese Maker Relationship Specialty Start Date End Date Mary Kay Lr, COMPUTER NUMERICAL CONTROL PROGRAMMER, ELECTRICAL CAD DESIGNER PCP - General Nurse Practitioner 12/01/17 04/23/21 [address] [place] [address] documented as of this encounter
--- OUTSIDE RECORDS SUMMARY | 2021-11-06 20:38 | XMS_ITS | Encounter Summary ---
:1975 Author Organization [facility], [facility]–1983 Address [address] [place] [address] Care Team Providers Name Role Phone Mary Kay Lr APRN, RELIEF WORKER Primary Care Provider [phone] Encounter Details Date Type Department Care Team Description 09/01/2020 [facility] at [address] Chemo Therapy [place] [address] [place] [address] [place] [address] Social History Tobacco Use Types Packs/Day Years Used Date Smoking Tobacco: Never Smokeless Tobacco: Never Alcohol Use Standard Drinks/Week Comments Yes 7 (1 standard drink = 0.6 oz pure alcoho l) Alcohol Habits Answer Date Recorded How often do you have a drink containing 4 or more times a w [place] 02/01/2020 alcohol? How many drinks containing alcohol [...] on filedocumented in this encounter Care Teams Mud Trucker Relationship Specialty Start Date End Date Mary Kay Lr, MARQUES, RELIEF WORKER PCP - General Nurse Practitioner 12/01/17 04/23/21 [address] [place] [address] documented as of this encounter
--- OUTSIDE RECORDS SUMMARY | 2021-11-06 20:38 | XMS_ITS | Encounter Summary ---
:1975 Author Organization [facility] Address [address] [place] [address] Care Team Providers Name Role Phone Mary Kay Lr APRN, NUTRITIONAL SERVICES HOST Primary Care Provider Reason for Visit Reason Comments Breast Cancer Encounter Details Date Type Department Care Team Description 05/29/2020 Hospital Encounter [facility] Invasive lobular carcinoma o f right breast, stage 1 (HRC) (Primary Dx); [address] [address] [facility] Malignant neoplasm of overla pping sites of right breast in female, estrogen receptor positive (HRC) [place] [address] Social History Tobacco Use Types Packs/Day Years Used Date Smoking Tobacco: Never Smokeless Tobacco: Never Alcohol Use Standard Drinks/Week Comments Yes 7 (1 standard drink = 0.6 oz pure alcoho l) Alcohol Habits Answer Date Recorded How often do you have a drink containing 4 or more times a w [place] 02/01/2020 alcohol? How many drinks containing alcohol do you have Not asked on a typical day when you are drinking? How often do you have six or more drinks on one Not asked occasion? Comment: Not asked Sex Assigned at Date Recorded Not on file documented as of this encounter Medications at Time of Discharge Medication Sig Dispensed Refills Start Date End Date ALBUTEROL IN Inhale 1-2 puffs 17 0 12/12/2003 every 4 hours as needed. VITAMIN D, Take 1 Capsule by 0 CHOLECALCIFEROL, OR mouth daily. metroNIDAZOLE (FLAGYL) Take 1 Tablet by 14 Tablet 0 05/25/2 021 06/01/2020 500 MG mouth two times a day tabletIndications: for 7 days. Bacterial vaginosis BIKTARVY 50-200-25 MG Take 1 Tablet by 90 Tablet 3 03/30/19 21 04/02/2021 tablet mouth daily. dexamethasone (DECADRON) Take 2 Tablets by 12 Tablet 5 10/202008/28/2020 4 MG tabletIndications: mouth two times a day Invasive lobular with meals. for 3 carcinoma of right days the day before, breast, stage 1 (HRC), the day of, and the Malignant neoplasm of day after treatment. overlapping sites of right breast in female, estrogen receptor positive (HRC) letrozole (FEMARA) 2.5 Take 1 Tablet by 90 Tablet 3 021 06/10/2021 MG tablet mouth daily. LORATADINE 0 08/28/2020 ORIndications: Low back pain (HRC) LORazepam (ATIVAN) 0.5 Take 1-2 Tablets by 30 Tablet 2 10/202008/28/2020 MG tabletIndications: mouth every 4 hours Invasive lobular as needed for Anxiety carcinoma of right (and or nausea and breast, stage 1 (HRC), vomiting). Malignant neoplasm of overlapping sites of right breast in female, estrogen receptor positive (HRC) ondansetron (ZOFRAN) 8 Take 1 Tablet by 30 Tablet 2 021 08/28/2020 MG tabletIndications: mouth three times a Invasive lobular day. For 2 days carcinoma of right following each breast, stage 1 (HRC), chemotherapy Malignant neoplasm of treatment then take overlapping sites of every 8 hours as right breast in female, needed for N/V estrogen receptor positive (HRC) Pegfilgrastim-bmez 6 Inject 6 mg 4 Each 1 04/16/2020 MG/0.6ML subcutaneously See SOSYIndications: Admin Instructions. Invasive lobular Every 21 days, on day carcinoma of right 2 of each breast, stage 1 (HRC), chemotherapy cycle Malignant neoplasm of overlapping sites of right breast in female, estrogen receptor positive (HRC) prochlorperazine Take 1 Tablet by 60 Tablet 2 03/20/2020 (COMPAZINE) 10 MG mouth every 6 hours tabletIndications: as needed for Nausea Invasive lobular or Vomiting. Maximum carcinoma of right of 40 mg (4 tabs) per breast, stage 1 (HRC), 24 hours. Malignant neoplasm of overlapping sites of right breast in female, estrogen receptor positive (HRC) documented as of this encounter Progress Notes Monique Valverde RN - 05/29/2020 1:30 PM CDT Pt here for taxotere/cytoxan. No complaints. Pt assessment done by MD during appt. Labs done 05/27/20, WNL. Pt premedicated with decadron, benadryl, pepcid and zofran. Tolerated treatment well with no issues. Discharged in stable condition. documented in this encounter Plan of Treatment Not on filedocumented as of this encounter Visit Diagnoses Diagnosis Invasive lobular carcinoma of right [address], stage 1 (HRC) - Primary Malignant neoplasm of overlapping sites of right breast in female, estrogen receptor positive (HRC) documented in this encounter Administered Medications Inactive Administered Medications - up to 3 most recent administrations Medication Order MAR Action Action Date Dose Rate Site cyclophosphamide (CYTOXAN) 1,000 Started 05/29/2020 3:53 PM CDT 1, 000 mg mg in sodium chloride 0.9 % 500 mL infusion 1,000 mg, Intravenous, Administer over 0.5 Hours, ONCE, On Thu05/29/20 at 1600, For 1 dose, WARNING: This medication MUST be administered by oncology staff. This medication is a HIGH RISK/HIGH ALERT medication. Hazardous waste disposal required. Administration: Double glove, chemo gown; if no closed-system drug-transfer device (CSTD), include eye protection dexamethasone (DECADRON) tablet 12 mg Given 05/29/2020 2:17 PM CDT 12 mg 12 mg, Oral, ONCE, On Thu05/29/20 at 1430, For 1 dose, Give 30-60 minutes prior to chemotherapy as pre-med. May be given IV diphenhydrAMINE (BENADRYL) capsule 50 mg Given 05/29/2020 2:18 PM CDT 50 mg 50 mg, Oral, ONCE, On Thu05/29/20 at 1430, For 1 dose DOCEtaxel (TAXOTERE) 120 mg in sodium Started 05/29/2020 2:49 PM C DT 120 mg chloride 0.9 % 250 mL chemo infusion 120 mg, Intravenous, Administer over 1 Hours, ONCE, On Thu05/29/20 at 1500, For 1 dose, 75mg/m2 x 1.67m2 = 125mg rounded to 120mg per 5% rounding protocol WARNING: This medication MUST be administered by oncology staff. This medication is a PINCH (high risk) medication. Hazardous waste, dispose of in Black Box Medication should be placed in a non PVC bag and NON-PVC tubing should be used to extend stability. Administration: Double glove, chemo gown; if no closed-system drug-transfer device (CSTD), include eye protection famotidine (PEPCID) tablet 20 mg Given 05/29/2020 2:18 PM CDT 20 mg 20 mg, Oral, ONCE, On Thu05/29/20 at 1430, For 1 dose ondansetron (ZOFRAN) tablet 16 mg Given 05/29/2020 2:18 PM CDT 16 mg 16 mg, Oral, ONCE, On Thu05/29/20 at 1430, For 1 dose, Give 30-60 minutes prior to chemotherapy as pre-med. May be given IV sodium chloride 0.9% infusion Started 05/29/2020 2:20 PM CDT 500 mL 20 mL/hr 500 mL, Intravenous, at 20 mL/hr, ONCE, On Thu05/29/20 at 1430, For 1 dose sodium chloride 0.9% injection 10-60 mL Given 05/29/2020 4:35 PM CDT 10 mL 10-60 mL, Intravenous, PRN BEFORE&AFTER MEDICATIONS OR LAB DRAW, Line Patency, Starting on Thu05/29/20 at 1404, Until Thu05/29/20 at 1836, For 1 day documented in this encounter Care Teams 4Th Grade Math Teacher Relationship Specialty Start Date End Date Mary Kay Lr, MECHANICAL PROCESS ENGINEER, NUTRITIONAL SERVICES HOST PCP - General Nurse Practitioner 12/01/17 04/23/21 [address] [place] [address] documented as of this encounter
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
--- OUTSIDE RECORDS SUMMARY | 2021-11-06 20:38 | XMS_ITS | Encounter Summary ---
:1975 Author Organization [employer] Address [address] [place] [address] Care Team Providers Name Role Phone Mary Kay Lr APRN, GARAGE LABORER Primary Care Provider [phone] Reason for Visit Reason Comments Infusion Encounter Details Date Type Department Care Team Description 05/08/2020 Hospital Encounter [facility] Invasive lobular carcinoma o f right breast, stage 1 (HRC) (Primary Dx); [address] [employer] Malignant neoplasm of overla pping sites of right breast in female, estrogen receptor positive (HRC) [place], [place] [address] Social History Tobacco Use Types Packs/Day Years Used Date Smoking Tobacco: Never Smokeless Tobacco: Never Alcohol Use Standard Drinks/Week Comments Yes 7 (1 standard drink = 0.6 oz pure alcoho l) Alcohol Habits Answer Date Recorded How often do you have a drink containing 4 or more times a w [place] 02/01/2020 alcohol? How many drinks containing alcohol do you have Not asked on a typical day when you are drinking? How often do you have six or more drinks on one Not asked occasion? Comment: Not asked Sex Assigned at Date Recorded Not on file documented as of this encounter Last Filed Vital Signs Vital Sign Reading Time Taken Comments Blood Pressure 119/73 05/08/2020 8:42 AM CDT Pulse 75 05/08/2020 8:42 AM CDT Temperature 37.2 ??C (98.9 ??F) 05/08/2020 8:42 AM CDT Respiratory Rate - - Oxygen Saturation - - Inhaled Oxygen Concentration - - Weight 60.8 kg (134 lb) 05/08/2020 8:42 AM CDT Height - - Body Mass Index 20.99 02/15/2020 9:42 AM BANK EXAMINER documented in this encounter Medications at Time of Discharge Medication Sig Dispensed Refills Start Date End Date ALBUTEROL IN Inhale 1-2 puffs 17 0 12/12/2003 every 4 hours as needed. VITAMIN D, Take 1 Capsule by 0 CHOLECALCIFEROL, OR mouth daily. BIKTARVY 50-200-25 MG Take 1 Tablet by 90 Tablet 3 03/30/19 21 04/02/2021 tablet mouth daily. dexamethasone (DECADRON) Take 2 Tablets by 12 Tablet 5 02/0 10/202008/28/2020 4 MG tabletIndications: mouth two times a day Invasive lobular with meals. for 3 carcinoma of right days the day before, breast, stage 1 (HRC), the day of, and the Malignant neoplasm of day after treatment. overlapping sites of right breast in female, estrogen receptor positive (HRC) LORATADINE 0 08/28/2020 ORIndications: Low back pain (HRC) LORazepam (ATIVAN) 0.5 Take 1-2 Tablets by 30 Tablet 2 /10/202008/28/2020 MG tabletIndications: mouth every 4 hours Invasive [...] breast in female, estrogen receptor positive (HRC) sulfamethoxazole-trimeth Take 1 Tablet by 6 Tablet 0 04/1105/24/2020 oprim (BACTRIM DS) mouth two times a 800-160 MG day. tabletIndications: Dysuria documented as of this encounter Progress Notes Pallavi Armstrong RN - 05/08/2020 8:30 AM CDT Is this the first dose: No History of previous infusion reactions? Yes, to the first one, flushing and lower back pain Premedications: 50mg PO benadryl, pepcid, zofran, decadron, 500cc Alert/assessment Dr. Cano today. Patient will come to lab the day before her next treatment. Patient arrived for D1C3 PIV DOCEtaxel CYCLOPHOSPHAMIDE (21D:1) x 4 cycles with pegfilgrastim support on day 2 infusion. Vital signs stable. Weight stable. Labs are within parameters to proceed with treatment as ordered. No signs/symptoms of infection. Tolerated infusion well. Discharged in stable condition. Will return to clinic for next treatment asscheduled in 05/10. Pallavi Armstrong RN 11:27 AM 05/08/2020 documented in this encounter Plan of Treatment [...] Dose Rate Site cyclophosphamide (CYTOXAN) 1,000 Started 05/08/2020 11:42 AM 1,000 mg mg in sodium chloride 0.9 % 500 CDT mL infusion 1,000 mg, Intravenous, Administer over 0.5 Hours, ONCE, On Thu05/08/20 at 1130, For 1 dose, WARNING: This medication MUST be administered by oncology staff. This medication is a HIGH RISK/HIGH ALERT medication. Hazardous waste disposal required. Administration: Double glove, chemo gown; if no closed-system drug-transfer device (CSTD), include eye protection dexamethasone (DECADRON) tablet 12 mg Given 05/08/2020 9:58 AM CDT 12 mg 12 mg, Oral, ONCE, On Thu05/08/20 at 1015, For 1 dose, Give 30-60 minutes prior to chemotherapy as pre-med. May be given IV diphenhydrAMINE (BENADRYL) capsule 50 mg Given 05/08/2020 9:58 AM CDT 50 mg 50 mg, Oral, ONCE, On Thu05/08/20 at 1015, For 1 dose DOCEtaxel (TAXOTERE) 120 mg in sodium Started 05/08/2020 10:33 AM CDT 120 mg chloride 0.9 % 250 mL chemo infusion 120 mg, Intravenous, Administer over 1 Hours, ONCE, On Thu05/08/20 at 1030, For 1 dose, 75mg/m2 x 1.67m2 = [...] protection famotidine (PEPCID) tablet 20 mg Given 05/08/2020 9:59 AM CDT 20 mg 20 mg, Oral, ONCE, On Thu05/08/20 at 1015, For 1 dose ondansetron (ZOFRAN) tablet 16 mg Given 05/08/2020 9:59 AM CDT 16 mg 16 mg, Oral, ONCE, On Thu05/08/20 at 1015, For 1 dose, Give 30-60 minutes prior to chemotherapy as pre-med. May be given IV sodium chloride 0.9% infusion Started 05/08/2020 10:04 AM CDT 500 mL 20 mL/hr 500 mL, Intravenous, at 20 mL/hr, ONCE, On Thu05/08/20 at 1015, For 1 dose sodium chloride 0.9% injection 10-60 mL Given 05/08/2020 11:38 AM CDT 20 mL 10-60 mL, Intravenous, PRN BEFORE&AFTER MEDICATIONS OR LAB DRAW, Line Patency, Starting on Thu05/08/20 at 0945, Until Thu05/08/20 at 1432, For 1 day documented in this encounter Care Teams Sports Fitness And Wellness Director Relationship Specialty Start Date End Date Mary Kay Lr, ELECTROGALVANIZING MACHINE OPERATOR, GARAGE LABORER PCP - General Nurse Practitioner 12/01/17 04/23/21 [address] [place] [place] [address] documented as of this encounter
--- OUTSIDE RECORDS SUMMARY | 2021-11-06 20:38 | XMS_ITS | Encounter Summary ---
:1975 Author Organization [facility] Address [address], [place] [address] Care Team Providers Name Role Phone Mary Kay Lr APRN, PHYSIATRIST Primary Care Provider [phone] Encounter Details Date Type Department Care Team Description 09/17/2020 [facility] Center at [address] Chemo [place] [address] [place] [address] [place] [address] Social History Tobacco Use Types Packs/Day Years Used Date Smoking Tobacco: Never Smokeless Tobacco: Never Alcohol Use Standard Drinks/Week Comments Yes 7 (1 standard drink = 0.6 oz pure alcoho l) Alcohol Habits Answer Date Recorded How often do you have a drink containing 4 or more times a w [place] 02/01/2020 alcohol? How many drinks containing alcohol [...] on filedocumented in this encounter Care Teams Dairy Bar Manager Relationship Specialty Start Date End Date Mary Kay Lr, MARQUES, PHYSIATRIST PCP - General Nurse Practitioner 12/01/17 04/23/21 [address] [place] [address] documented as of this encounter
--- OUTSIDE RECORDS SUMMARY | 2021-11-06 20:38 | XMS_ITS | Encounter Summary ---
:1975 Author Organization [facility] Address [address], [place] [address] Care Team Providers Name Role Phone Mary Kay Lr APRN, CITY CARRIER Primary Care Provider [phone] Encounter Details Date Type Department Care Team Description 05/04/2020 [facility] Center at [address] Chemo Therapy [place] [address] [place] [address] [place] [address] Social History Tobacco Use Types Packs/Day Years Used Date Smoking Tobacco: Never Smokeless Tobacco: Never Alcohol Use Standard Drinks/Week Comments Yes 7 (1 standard drink = 0.6 oz pure alcoho l) Alcohol Habits Answer Date Recorded How often do you have a drink containing 4 or more times a w [place] 02/01/2020 alcohol? How many drinks containing alcohol [...] on filedocumented in this encounter Care Teams Property Custodian Relationship Specialty Start Date End Date Mary Kay Lr, MARQUES, CITY CARRIER PCP - General Nurse Practitioner 12/01/17 04/23/21 [address] [place] [address] documented as of this encounter
--- OUTSIDE RECORDS SUMMARY | 2021-11-06 20:38 | XMS_ITS | Encounter Summary ---
:1975 Author Organization [facility] Address [address] [place] [address] Care Team Providers Name Role Phone Mary Kay Lr APRN, CNP Primary Care Provider [phone] Encounter Details Date Type Department Care Team Description 05/03/2020 Immunization [facility] Vaccine Encou nter for Program administration of vaccine [address] (Primary Dx) [place] [address] Social History Tobacco Use Types Packs/Day Years Used Date Smoking Tobacco: Never Smokeless Tobacco: Never Alcohol Use Standard Drinks/Week Comments Yes 7 (1 standard drink = 0.6 oz pure alcoho l) Alcohol Habits Answer Date Recorded How often do you have a drink containing 4 or more times a w [place] 02/01/2020 alcohol? How many drinks containing alcohol do you have Not asked on a typical day when you are drinking? How often do you have six or more drinks on one Not asked occasion? Comment: Not asked Sex Assigned at Date Recorded Not on file documented as of this encounter Plan of Treatment Not on filedocumented as of this encounter Visit Diagnoses Diagnosis Encounter for administration of vaccine - Primary documented in this encounter Care Teams Sales Operations Relationship Specialty Start Date End Date Mary Kay Lr, MARQUES, ENDOCRINOLOGIST PCP - General Nurse Practitioner 12/01/17 04/23/21 [address] [place] [address] documented as of this encounter
--- OUTSIDE RECORDS SUMMARY | 2021-11-06 20:38 | XMS_ITS | Encounter Summary ---
:1975 Author Organization [facility] Address [address] [place] [address] Care Team Providers Name Role Phone Mary Kay Lr APRN, EMULSIFICATION OPERATOR Primary Care Provider [phone] Reason for Referral Procedure/Equipment (Routine) - Incomplete Specialty Diagnoses / Procedures Referred By Contact Refer red To Contact Diagnoses S/P hysterectomy Malignant neoplasm of overlapping sites of right breast in female, estrogen receptor positive (HRC) Jessica Cano MD Procedures DXA Bone Density Spine/Hip [address] [place] [address] Referral ID Status Reason Start Date Expiration Date Visits V isits Requested Authorized [id number] Incomplete 05/29/2020 08/28/2021 1 1 Reason for Visit Reason Comments Follow-up breast ca Encounter Details Date Type Department Care Team Description 05/29/2020 Office Visit [facility] Jessica Cano alignant neoplasm of overlapping sites of right breast in female, estrogen receptor positive (HRC) (Primary Dx); Care at Adrianne Bartholomew MD S/P hysterectomy; [facility] [address] [facility] Invasive lobular carcinoma of right gala [address], stage 1 (HRC) [address] [place] [address] [phone] Social History Tobacco Use Types Packs/Day Years [...] Sign Reading Time Taken Comments Blood Pressure 119/80 05/29/2020 1:20 PM CDT Pulse 74 05/29/2020 1:20 PM CDT Temperature 36.7 ??C (98.1 ??F) 05/29/2020 1:20 PM CDT Respiratory Rate - - Oxygen Saturation - - Inhaled Oxygen Concentration - - Weight 60.3 kg (133 lb) 05/29/2020 1:20 PM CDT Height - - Body Mass Index 20.83 05/24/2020 1:43 PM CDT documented in this encounter Patient Instructions Patient InstructionsBaxsJessica ladd MD - 05/29/2020 1:30 PM CDT Cristiana Castillo, It was nice to see you in clinic today! You were seen today for early stage, hormone positive breast cancer Your treatment plan is as follows: TC chemotherapy with Taxotere and Cytoxan every 3 weeks - finishing today! In about 1 month, start letrozole 2.5mg daily. PLAN: 1. Today, proceed with cycle #4 chemotherapy 2. Inject Neulasta tomorrow at home 3. DEXA bone scan 4. Return to the clinic in 3 months to see Lori for follow up on letrozole Call with any questions or concerns. The clinic phone number is [phone] (follow prompts for [place]). All the best, Yudy Cano MD Hematology/Oncology [facility] documented in this encounter Progress Notes Jessica Cano MD - 05/29/2020 1:30 PM CDT Hematology/Oncology Clinic Follow-Up Note Date of Service: 05/29/2020 Diagnosis: 1. Stage IA (pT1c, pN0) invasive lobular carcinoma of the right breast, ER positive, DC positive, HER2 negative, grade 2 -discovered on screening mammogram December 2019 -right breast mastectomy with sentinel lymph node biopsy 02/15/2020 -Oncotype recurrence score 27, high risk -of note, patient had RAMYA/BSO 2011, had been on estradiol until this diagnosis Treatment: 1. Taxotere and Cytoxan chemotherapy -started 03/29/2020 2. Letrozole 2.5 mg daily -started June 2020 Treatment goal: Curative Interval History: Cristiana presents today for her 4th cycle of chemotherapy. Overall cycle 3 went okay for her. She did have more fatigue this cycle. She also had a severe sore throat, and even had testing for COVID which was negative. The sore throat eventually resolved. She continues to do mouth rinses and gargle salt water. Using the Pepcid and Tylenol has controlled the stomach pains well. She was diagnosed with a bacterial vaginal infection and took Flagyl for this with relief. Otherwise no feversor infection concerns. Happy to be almost done with chemotherapy. Remainder of visit spent today discussing future plans and plans for letrozole. Current Outpatient Medications Medication Sig Dispense Refill ??? ALBUTEROL IN Inhale 1-2 puffs every 4 hours as needed. 17 PRN ??? BIKTARVY 50-200-25 MG tablet Take 1 Tablet by mouth daily. 90 Tablet 3 ??? dexamethasone (DECADRON) 4 MG tablet Take 2 Tablets by mouth two times a day with meals. for 3 days the day before, the day of, and the day after treatment. 12 Tablet 5 ??? letrozole (FEMARA) 2.5 MG tablet Take 1 Tablet by mouth daily. 90 Tablet 3 ??? LORATADINE OR ??? LORazepam (ATIVAN) 0.5 MG tablet Take 1-2 Tablets by mouth every 4 hours as needed for Anxiety (and or nausea and vomiting). 30 Tablet 2 ??? metroNIDAZOLE (FLAGYL) 500 MG tablet Take 1 Tablet by mouth two times a day for 7 days. 14 Tablet 0 ??? ondansetron (ZOFRAN) 8 MG tablet Take 1 Tablet by mouth three times a day. For 2 days following each chemotherapy treatment then take every 8 hours as needed for N/V (Patient not taking: Reported on 05/24/2020) 30 Tablet 2 ??? Pegfilgrastim-bmez 6 MG/0.6ML SOSY Inject 6 mg subcutaneously See Admin Instructions. Every 21 days, on day 2 of each chemotherapy cycle 4 Each 1 ??? prochlorperazine (COMPAZINE) 10 MG tablet Take 1 Tablet by mouth every 6 hours as needed for Nausea or Vomiting. Maximum of 40 mg (4 tabs) per 24 hours. 60 Tablet 2 ??? VITAMIN D, CHOLECALCIFEROL, OR Take 1 Capsule by mouth daily. No current facility-administered medications for this visit. Facility-Administered Medications Ordered in Other Visits Medication Dose Route Frequency Provider Last Rate Last Admin ??? cyclophosphamide (CYTOXAN) 1,000 mg in sodium chloride 0.9 % 500 mL infusion 1,000 mg Intravenous Once Jessica Cano MD ??? DOCEtaxel (TAXOTERE) 120 mg in sodium chloride 0.9 % 250 mL chemo infusion 120 mg Intravenous Once Jessica Cano MD 120 mg at 05/29/20 1449 ??? sodium chloride 0.9% infusion 500 mL Intravenous Once Helen Martinez MD 20 mL/hr at 420 500 mL at 05/29/20 1420 ? ? sodium chloride 0.9% injection 10-60 mL 10-60 mL Intravenous PRN before&after medications orlab draw Helen Martinez MD PMH/PSH reviewed in [facility]. REVIEW OF SYSTEMS: A 10 system review was performed and is negative unless previously stated in the history of present illness. Performance Status: 0 - Fully active; no performance restrictions PE: Blood pressure 119/80, pulse 74, temperature 98.1 ??F (36.7 ??C), temperature source Temporal Artery, weight 133 lb (60.3 kg). Reviewed, unremarkable GEN - Alert and oriented x 3, no acute distress HEENT - Normocephalic and atraumatic, MMM CV - Regular rate and rhythm, no murmurs/rubs/gallops. RESP - Generally clear to auscultation, bilaterally. No accessory muscle use EXTREM - No asymmetric lower extremity swelling SKIN - No jaundice or rashes NEURO - No gross focal deficits on limited examination PSYCH - Appropriate affect, conversant Data summary: Reviewed, unremarkable except for some very mild anemia I have reviewed all the labs, images and notes in detail. The pertinent findings are summarized in this note. ASSESSMENT AND PLAN: 1. Stage IA (pT1c, pN0) invasive lobular carcinoma of the right breast, ER positive, DC positive, HER2 negative, grade 2 2. Dyspepsia secondary chemotherapy, improved 3. Myalgias secondary to Neulasta, improved Tolerating chemotherapy well with expected side effects. She will proceed with her last cycle today. She will continue with the Neulasta support at home as well as Pepcid for dyspepsia in Claritin andTylenol for the body aches. She will continue mouth rinses as well. Today we spent a significant portion of our time discussing letrozole which will start in approximately 1 month. We reviewed side effects including not limited to muscle aches, hot flashes, vaginal dryness, weight gain, bone loss. We will get a DEXA scan as baseline. She will not require radiation asshe had a mastectomy. Will plan annual mammogram, which will be due December. Will have her return in 3 months to see Lori for follow-up. We also spent a significant portion of time discussing rationale for treatment and risk of recurrence down the road. Chemotherapy Docetaxel (Taxotere) 75 mg/m2 IV once on day 1 Cyclophosphamide (Cytoxan) 600 mg/m2 IV once on day 1 Supportive medications All cycles given with Filgrastim (Neupogen) support 21-day cycle for 4 cycles 4. HIV infection Well controlled, follows with Dr. Hicks. Encouraged her to reach out to him regarding any specific COVID related concerns from an HIV standpoint. Ref Guidelines: NCCN All the questions were answered to their satisfaction. Patient expressed good understanding of the diagnosis and treatment plan. After the appointment the patient proceeded to the infusion center for treatment. Yudy Cano MD Hematology/Oncology [facility] Data: Pain: 0 Advanced Directives: Not Discussed At least 40 minutes were spent with this patient in counseling and coordination of care, review of records, collecting medical data and/or discussing with multidisciplinary team members. This note created using speech-recognition software and may contain unintended word substitutions. documented in this encounter Plan of Treatment Not on filedocumented as of this encounter Results DXA Bone Density Spine/Hip (06/26/2020 4:32 PM CDT) Anatomical Region Laterality Modality Lower Extremity, Spine, Hip, L-Spine Rad iographic Imaging Specimen (Source) Anatomical Location Collection Method / Collectio n Time Received Time / Laterality Volume Narrative 07/04/2020 9:13 AM CDT CLINIC DXA REPORT Patient Name: ??Cristiana Wiggins Jonathan [place]: ??Oracio Mathur PA-C Densitometer: ??[employer] Horizon W (S/N 2 [id number]) PINEDA BONE OSTEOPOROSIS RISK FACTORS FROM PATIENT Nisha HUFFIONNAIRE: ?? The patient is a 45 y.o.female: Calcium intake is adequate. There is no self-reported history of hip, spine, pel vis, humerus, or wrist fracture; no family history of spine fracture; and no family history of hip fracture. She reports no fall(s) over e past year. Recently started an aromatase inhibitor. BONE MINERAL DENSITY: Lumbar Spine Vertebrae Included: L1;L2;L3;L4 Bone Mineral Density (gm/cm2): 0.902 T-Score: -1.3 Z-Score: -1 Total Hip Bone Mineral Density (gm/cm2): 0.793 (nd ght) T-Score: -1.2 Z-Score: -0.1 Femoral Neck Bone Mineral Density (gm/cm2): 0.725 T-Score: -1.1 Z-Score: -0.7 FRAX 10 year probability major osteoporotic f racture: 2.5% 10 year probability hip fracture: 0.1% COMPARISON TO PRIOR STUDY: This is a baseline bone density test (fi rst one at [facility]) ASSESSMENT: 1. Low bone mass, based on T-score(s) at all skeletal sites 2. Patient is at low risk of fracture, b ased on age, fracture history, bone mineral density at all skeletal sit es, and presence or absence of other risk factors. RECOMMENDATIONS: ?? 1. Optimize calcium and vitamin D intake 2. Repeat DXA in 5 years FRAX Explanation: The 10 year risks of hip and major osteo porotic fractures (clinical spine, forearm, hip or shoulder fracture) are c alculated by the FRAX algorithm based on femoral neck bone density, age, gender, race/ethnicity, weight, height, previous fracture, parental hip fracture, smoking status, glucocorticoid intake, history of RA, se condary osteoporosis, and high alcohol consumption. FRAX Fracture Risk Categories in terms o f major osteoporotic fractures: < 10% = low fracture risk ? 10% and <15% = mildly increased fractu re risk ? 15% and <20% = moderately increased fr acture risk ? 20% and <30% = high fracture risk ? 30% = very high fracture risk National Osteoporosis Foundation Treatme nt Guideline A clinician may consider FDA-approved me dical therapies in postmenopausal women and men aged 50 years and older, i f one or more of the following is present (clinical correlation required a nd therapy may not always be indicated): 1. The patient has a hip or vertebral fr acture. 2. T-score ? -2.5 at the femoral neck, h ip, or spine after appropriate evaluation to exclude secondary causes. 3. Low bone mass (T-score between -1.0 a nd -2.5 at the femoral neck, hip or spine) and a 10-year probability of a hip fracture ? 3% or a 10-year probability of a major osteoporosis-rela niki fracture ? 20% based on the FRAX scores. 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
--- OUTSIDE RECORDS SUMMARY | 2021-11-06 20:38 | XMS_ITS | Encounter Summary ---
:1975 Author Organization [facility] Address [address] [place] [address] Care Team Providers Name Role Phone Mary Kay Lr APRN, BANQUET KITCHEN SUPERVISOR Primary Care Provider [phone] Reason for Visit Reason Comments LAB RESULTS Encounter Details Date Type Department Care Team Description 05/25/2020 Telephone [facility] and Kishore Boss APRN, LAB RESULTS Gynecology Physician s CN [address] [place], [place] [address] [place] [address] [phone] (Wo rk) Social History Tobacco Use Types Packs/Day Years Used Date Smoking Tobacco: Never Smokeless Tobacco: Never Alcohol Use Standard Drinks/Week Comments Yes 7 (1 standard drink = 0.6 oz pure alcoho l) Alcohol Habits Answer Date Recorded How often do you have a drink containing 4 or more times a w [place] 02/01/2020 alcohol? How many drinks containing alcohol do you have Not asked on a typical day when you are drinking? How often do you have six or more drinks on one Not asked occasion? Comment: Not asked Sex Assigned at Date Recorded Not on file documented as of this encounter Nursing Notes Sari Clay RN - 05/25/2020 8:19 AM CDT Images from the original note were not included. Component Latest Ref Rng & Units 05/24/2020 Gardnerella Negative Positive (A) Lexi Negative Negative Trich Vaginalis Negative Negative Result Notes Abdullahi Boss APRNEILEEN 05/24/2020 ??5:47 PM CDT Back to Top Recommend treatment with Flagyl 500 mg 'po' bid x 7 days. ??She is on chemotherapy for breast Ca so she may want to check with her oncologist to determine if it's fine to use now. Abdullahi Boss APRN, EILEEN Called and informed the pt of the results and provider message. She will check with her oncologist regarding this medication. Rx will be sent. She will call if a new rx is needed. She got her 2nd COVID vaccine yesterday and is having some mild side effects today so may wait to start tx later on. She will call if her sx change or worsen. She states understanding and has no further questions or concerns at this time. Sari Clay RN documented in this encounter Plan of Treatment Not on filedocumented as of this encounter Visit Diagnoses Diagnosis Bacterial vaginosis - Primary Vaginitis and vulvovaginitis, unspecifie d documented in this encounter Care Teams Charging Manipulator Relationship Specialty Start Date End Date Mary Kay Lr, LOG ROPER, BANQUET KITCHEN SUPERVISOR PCP - General Nurse Practitioner 12/01/17 04/23/21 [address] [place] [address] documented as of this encounter
--- OUTSIDE RECORDS SUMMARY | 2021-11-06 20:38 | XMS_ITS | Encounter Summary ---
:1975 Author Organization [facility] Address [address], [place] [address] Care Team Providers Name Role Phone Mary Kay Lr APRN, SPECIAL NEEDS TEACHER Primary Care Provider [phone] Reason for Referral Therapies (Routine) - Closed Specialty Diagnoses / Procedures Referred By Contact Refer red To Contact Diagnoses Pain in both [place], [place] [address] [place] [address] Referral ID Status Reason Start Date Expiration Date Visits Requ ested Visits Authorized [id number] Closed 10/08/2020 10/08/2021 1 29 Scheduling Instructions Your provider has recommended an appoint ment with [facility]. You may call [phone] to schedule your a ppointment. We suggest you call your health insurance company about your coverage an d benefits for this appointment. Procedure/Equipment (Routine) - Incomplete Specialty Diagnoses / Procedures Referred By Contact Refer red To Contact Diagnoses Pain in both knees, unspecified chronicity Jhon Nayak MD Procedures XR Knee Bilat [address] [place] [address] [address] Referral ID Status Reason Start Date Expiration Date Visits V isits Requested Authorized [id number] Incomplete 10/08/2020 01/07/2022 1 1 Reason for Visit Reason Comments Knee Pain or Injury b/l doi: unknown lee: overus e, Rt worse than Lt Encounter Details Date Type Department Care Team Description 10/08/2020 Office Visit Jhon Mcfadden, Pain i n both knees, Orthopedic Urgent unspecified Care [address] [address] chronic[address] (Primary [address] [place], [place] Dx) [place], [place] [id number] [phone] Social History Tobacco Use Types Packs/Day Years Used Date Smoking Tobacco: Never Smokeless Tobacco: Never Alcohol Use Standard Drinks/Week Comments Yes 7 (1 standard drink = 0.6 oz pure alcoho l) Alcohol Habits Answer Date Recorded How often do you have a drink containing 4 or more times a w [place] 02/01/2020 alcohol? How many drinks containing alcohol [...] Pressure - - Pulse - - Temperature 36.5 ??C (97.7 ??F) 10/08/2020 4:32 PM CDT Respiratory Rate - - Oxygen Saturation - - Inhaled Oxygen Concentration - - Weight 59 kg (130 lb) 10/08/2020 4:32 PM CDT Height 170.2 cm (5' 7) 10/08/2020 4:32 PM CDT Body Mass Index 20.36 10/08/2020 4:32 PM CDT documented in this encounter Patient Instructions Patient InstructionsNancy Gibbons RN - 10/08/2020 4:[address] Jhon Nayak MD Sports & Orthopedic Medicine [facility] Medication Requests: Prescriptions are not filled on Weekends or on Weekdays after 3:00PM For all medication refills: Request a refill using MyChart or contact your Pharmacy MRI Scheduling: To schedule an MRI at [facility] please call [phone] Paperwork Requests: Questions regarding FMLA or disability paperwork please call [phone] Phone lines are answered 8AM to 5PM Thursday - Thursday. General Scheduling: To schedule an appointment, please call [phone] [facility] Nurse Line: [phone] Workers??? Compensation: Please contact our department for any Work Comp concerns at Email: [email or web address] Diagnosis: Bilateral patellofemoral pain syndrome Plan: Follow up in 6 weeks PT - core, glute, hip abductor strengthening voltaren gel for foot Imaging Casino Attendant[facility] [address]. Call [phone] to schedule. Medication Requests: Prescriptions are filled on Weekdays before 3:00PM For all medication refills: Request a refill using MyChart or contact your Pharmacy Paperwork Requests: FMLA or disability paperwork can be faxed to: [facility] [phone] Please allow 7-10 business days for completion of all paperwork. [facility] Worker's Compensation Services: E-mail Address: [email or web address] To request copies of your medical records, call: [phone] (option 4) documented in this encounter Progress Notes Jhon Nayak MD - 10/08/2020 12:00 AM CDT NAME: CRISTIANA CASTILLO CSN: [id number] CLINIC NOTE DATE OF SERVICE: 10/08/2020 : 1975 Cristiana Castillo is a pleasant of 45-year-old female who presents today for evaluation of a bilateral knee pain. She notes that her symptoms are typically worse when she goes from a seated to a standing position, and she will typically get short pain over the medial patellofemoral joint with this motion. At times, her knees will also ache for no specific reason. She denies any locking, catching, or mechanical symptoms or any significant instability. She was recently treated for breast cancer and finished her last round of chemotherapy in May. She also underwent a mastectomy. She also has a history ofHIV although she notes that it is undetectable and has not had any issues secondary to this. She used to do more running and high impact activity, but notes she has been less active than usual due to chemo and her treatments for breast cancer. She had more severe pain a few weeks ago when she initially called to schedule the appointment, but this symptom has gradually improved. When she does get pain, the right knee is generally worse than the left. REVIEW OF SYSTEMS: Negative for fever, rash, numbness and tingling. PAST MEDICAL HISTORY: Significant for breast cancer, HIV, and mastectomy. SOCIAL HISTORY: She is a nonsmoker. MEDICATIONS: Per [facility]. ALLERGIES: PER [facility]. VITAL SIGNS: Height 5 feet 7 inches, weight 130 pounds, temperature 97.7 degrees. MUSCULOSKELETAL: Examination of her bilateral knees, there is no knee effusion present in either knee. She is nontenderto palpation. She has full range of motion from 0-135. No laxity with varus or valgus stress testing. Negative Serena's. Negative Marco A's. Negative posterior drawer. She has 4-/5 strength with resisted hip abduction compared to 5/5 strength with resisted quad strength testing. IMAGING: Bilateral knee x-rays were obtained and personally reviewed by me, which were negative for fracture, osteoarthritis, or acute bony abnormality. Please see [facility] for official Radiology review. ASSESSMENT/PLAN: Bilateral patellofemoral pain syndrome. We discussed that her hip abductor weaknessand relative core deconditioning secondary to her chemo and breast cancer are likely contributing toher anterior knee pain. Recommended physical therapy for core, glute, and proximal kinetic chain strengthening. They will consider blood flow restriction and Katz taping. We discussed seeing her back in 6 weeks for recheck unless her symptoms have completely resolved by then. She also had questions regarding a tendonitis issue that she had her foot and I recommended a topical Voltaren gel and following up in clinic if her symptoms are not gradually resolving with this to consider further imaging of the foot. MD JOCELINE FONTENOT/TIANNA /[id number] documented in this encounter Plan of Treatment Scheduled Referrals Name Type Priority Associated Diagnoses Order S chedule Physical Therapy Referral Routine Pain in both knees, Orde red: 10/08/2020 unspecified chronicity documented as of this encounter Results XR Knee Bilat 3 Views (10/08/2020 4:52 PM CDT) Anatomical Region Laterality Modality Lower Extremity, Knee Digital Radiograph y Specimen (Source) Anatomical Collection Method Collection Time Re ceived Time Location / / Volume Laterality 10/08/2020 4:40 PM CDT Impressions 10/08/2020 4:59 PM CDT COMPARISON: ??None. FINDINGS: ??No acute or significant bone or joint abnormality of the bilateral knees is identified. ??Alignment is unremarkable. Procedure Note Alexi Davidson MD - 10/08/2020 IMPRESSION COMPARISON: None. FINDINGS: No acute or significant bone o r joint abnormality of the bilateral knees is identified. Alignment is unremarkable. Jhon Nayak MD RAD GD documented in this encounter Visit Diagnoses Diagnosis Pain in both knees, unspecified chronici ty - Primary Pain in both knees, unspecified chronici ty documented in this encounter Care Teams Hand Bender Relationship Specialty Start Date End Date Mary Kay Lr, PARTY PLAN SALES UNIT SALES LEADER, SPECIAL NEEDS TEACHER PCP - General Nurse Practitioner 12/01/17 04/23/21 [address] [place] [address] documented as of this encounter
--- OUTSIDE RECORDS SUMMARY | 2021-11-06 20:38 | XMS_ITS | Encounter Summary ---
:1975 Author Organization [facility] Address [address] [address] Care Team Providers Name Role Phone Mary Kay Lr APRN, STEAM FINISHER Primary Care Provider [phone] Encounter Details Date Type Department Care Team Description 06/05/2020 [facility] Vance Martinez MD Center at [address] [place]o [place] [address] [place] [address] [place] [address] Social History Tobacco Use Types Packs/Day Years Used Date Smoking Tobacco: Never Smokeless Tobacco: Never Alcohol Use Standard Drinks/Week Comments Yes 7 (1 standard drink = 0.6 oz pure alcoho l) Alcohol Habits Answer Date Recorded How often do you have a drink containing 4 or more times a w [place] 02/01/2020 alcohol? How many drinks containing alcohol [...] on filedocumented in this encounter Care Teams Method Consultant Relationship Specialty Start Date End Date Mary Kay Lr, MARQUES, STEAM FINISHER PCP - General Nurse Practitioner 12/01/17 04/23/21 [address] [place] [address] documented as of this encounter
--- OUTSIDE RECORDS SUMMARY | 2021-11-06 20:38 | XMS_ITS | Encounter Summary ---
:1975 Author Organization [facility] Address [address], [place] [address] Care Team Providers Name Role Phone Mary Kay Lr APRN, SYSTEMS TESTER Primary Care Provider Encounter Details Date Type Department Care Team Description 05/08/2020 Office Visit [facility] Cancer Jessica Cano alignant neoplasm Care at Adrianne Bartholomew MD of overlapping sites [facility] [address] [place] [address] [place] [address] [place], [place] female, [place] [address] receptor positive [phone] (HRC) (Primary Dx) (Work) Social History Tobacco Use Types Packs/Day Years Used Date Smoking Tobacco: Never Smokeless Tobacco: Never Alcohol Use Standard Drinks/Week Comments Yes 7 (1 standard drink = 0.6 oz pure alcoho l) Alcohol Habits Answer Date Recorded How often do you have a drink containing 4 or more times a w [place] 02/01/2020 alcohol? How many drinks containing alcohol do you have Not asked on a typical day when you are drinking? How often do you have six or more drinks on one Not asked occasion? Comment: Not asked Sex Assigned at Date Recorded Not on file documented as of this encounter Patient Instructions Patient InstructionsFaiza Pabon RN - 05/08/2020 9:00 AM CDT Cristiana Castillo, It was nice to see you in clinic today! You were seen today for early stage, hormone positive breast cancer Your treatment plan is as follows: TC chemotherapy with Taxotere and Cytoxan every 3 weeks PLAN: 1. Today, proceed with cycle #3 chemotherapy 2. Inject Neulasta tomorrow at home 3. Return to the clinic in 3 weeks to see me with labs and chemotherapy Call with any questions or concerns. The clinic phone number is [phone] (follow prompts for Reji). All the best, Yudy Cano MD Hematology/Oncology [facility] 9:33 AM documented in this encounter Progress Notes Jessica Cano MD - 05/08/2020 9:00 AM CDT Hematology/Oncology Clinic Follow-Up Note Date of Service: 05/08/2020 Diagnosis: 1. Stage IA (pT1c, pN0) invasive lobular carcinoma of the right breast, ER positive, ND positive, HER2 negative, grade 2 -discovered on screening mammogram December 2019 -right breast mastectomy with sentinel lymph node biopsy 02/15/2020 -Oncotype recurrence score 27, high risk -of note, patient had RAMYA/BSO 2011, had been on estradiol until this diagnosis Treatment: 1. Taxotere and Cytoxan chemotherapy -started 03/29/2020 Treatment goal: Curative Interval History: Cristiana presents today for her 3rd cycle of chemotherapy. Overall 2nd cycle went better than the 1st cycle. She says she knew how to anticipate side effects better and was keeping noteson which days to expect which symptoms. She says days 3 through 5 are the hardest, and plans to takework off during those days this time. She says usually by day 8 she rebounds and feels really quite good the rest of the cycle. She has been using scheduled Tylenol and Pepcid with good relief as well as having senna and MiraLax available for constipation as well as Imodium available for diarrhea as needed. Very minimal amount of tingling in her fingertips, that has resolved. No swelling. No specificmouth sores, but did have some mouth sensitivity and has been very diligent about using the salt andsoda rinses as well as Biotene as necessary. Body aches were not as significant this time either, and she had no problems using the Neulasta at home. Overall very pleased with how chemotherapy has goneso far and is ready to proceed with next cycle. Current Outpatient Medications Medication Sig Dispense Refill [...] day after treatment. 12 Tablet 5 ??? LORATADINE OR ??? LORazepam (ATIVAN) 0.5 MG tablet Take 1-2 Tablets by mouth every 4 hours as needed for Anxiety (and or nausea and vomiting). 30 Tablet 2 ??? ondansetron (ZOFRAN) 8 MG tablet Take 1 Tablet by mouth three times a day. For 2 days following each chemotherapy treatment then take every 8 hours as needed for N/V 30 Tablet 2 ??? Pegfilgrastim-bmez 6 MG/0.6ML SOSY Inject 6 mg subcutaneously See Admin Instructions. Every 21 days, on day 2 of each chemotherapy cycle 4 Each 1 ??? prochlorperazine (COMPAZINE) 10 MG tablet Take 1 Tablet by mouth every 6 hours as needed for Nausea or Vomiting. Maximum of 40 mg (4 tabs) per 24 hours. 60 Tablet 2 ??? sulfamethoxazole-trimethoprim (BACTRIM DS) 800-160 MG tablet Take 1 Tablet by mouth two times a day. 6 Tablet 0 ??? VITAMIN D, CHOLECALCIFEROL, OR Take 1 Capsule by mouth daily. No current facility-administered medications for this visit. PMH/PSH reviewed in [employer]. REVIEW OF SYSTEMS: A 10 system review was performed and is negative unless previously stated in the history of present illness. Performance Status: 0 - Fully active; no performance restrictions PE: There were no vitals taken for this visit. Reviewed, unremarkable GEN - Alert and oriented x 3, no acute distress HEENT - Normocephalic and atraumatic, MMM NECK - No lymphadenopathy, no thyromegaly CV - Regular rate and rhythm, no [...] carcinoma of the right breast, ER positive, ND positive, HER2 negative, grade 2 2. Dyspepsia secondary chemotherapy, improved 3. Myalgias secondary to Neulasta, improved Tolerated 2nd cycle better with increasing symptom management. Experiencing expected side effects. Continue with plans for TC chemotherapy every 3 weeks with Neulasta support at home. She will continue on the Pepcid for dyspepsia and Claritin, Tylenol for body aches. At the end of chemotherapy, we will proceed aromatase inhibitor since she has had her ovaries removed. Will need a DEXA scan as baseline. She will not require radiation as she had a mastectomy. Today she was wondering about ongoing surveillance, which is typically annual mammograms. She says she has dense breasts and is wondering about breast MRI, which is reasonable. Will continue to discuss. Chemotherapy Docetaxel (Taxotere) 75 mg/m2 IV once [...] Data: Pain: 0 Advanced Directives: Not Discussed Level 5 visit based on complexity: 1 or more chronic illness with severe exacerbation, progression or side effect, or 1 acute/chronic illness (malignancy) that poses a threat to life or bodily function, and test result review (at least 3 separate tests) or ordering of tests (3), and/or including drug therapy with monitoring for toxicity (chemo or immunotherapy). This note created using speech-recognition software and may contain unintended word substitutions. documented in this encounter Plan of Treatment Not on filedocumented as of this encounter Visit Diagnoses Diagnosis Malignant neoplasm of overlapping sites of right breast in female, estrogen receptor positive (HRC) - Primary documented in this encounter Care Teams Exterior Work Helper Relationship Specialty Start Date End Date Mary Kay Lr, MACHINE II ENGRAVER, SYSTEMS TESTER PCP - General Nurse Practitioner 12/01/17 04/23/21 [address] [place] [place] [address] documented as of this encounter
--- OUTSIDE RECORDS SUMMARY | 2021-11-06 20:38 | XMS_ITS | Encounter Summary ---
:1975 Author Organization [facility] Address [address], [place] [address] Care Team Providers Name Role Phone Mary Kay Lr APRN, CASH APPLICATIONS ASSOCIATE Primary Care Provider [phone] Encounter Details Date Type Department Care Team Description 06/13/2020 [facility] Vance [facility] MD Center at [address] Chemo Therapy [place] [address] [place] [address] [place] [address] Social History Tobacco Use Types Packs/Day Years Used Date Smoking Tobacco: Never Smokeless Tobacco: Never Alcohol Use Standard Drinks/Week Comments Yes 7 (1 standard drink = 0.6 oz pure alcoho l) Alcohol Habits Answer Date Recorded How often do you have a drink containing 4 or more times a w [place] 02/01/2020 alcohol? How many drinks containing alcohol [...] on filedocumented in this encounter Care Teams Compression Molding Machine Operator Relationship Specialty Start Date End Date Mary Kay Lr, MARQUES, CASH APPLICATIONS ASSOCIATE PCP - General Nurse Practitioner 12/01/17 04/23/21 [address] [place] [address] documented as of this encounter
--- OUTSIDE RECORDS SUMMARY | 2021-11-06 20:38 | XMS_ITS | Encounter Summary ---
:1975 Author Organization [facility] Address [address], [place] [address] Care Team Providers Name Role Phone Mary Kay Lr APRN, FINANCIAL AID ADMINISTRATOR Primary Care Provider [phone] Encounter Details Date Type Department Care Team Description 05/28/2020 Notes/Orders [facility] Cancer Vance Martinez MD Center at [address] Chemo Therapy [place] [address] [place] [address] [place] [address] Social History Tobacco Use Types Packs/Day Years Used Date Smoking Tobacco: Never Smokeless Tobacco: Never Alcohol Use Standard Drinks/Week Comments Yes 7 (1 standard drink = 0.6 oz pure alcoho l) Alcohol Habits Answer Date Recorded How often do you have a drink containing 4 or more times a w [place] 02/01/2020 alcohol? How many drinks containing alcohol [...] on filedocumented in this encounter Care Teams Marketing Segment Manager Relationship Specialty Start Date End Date Mary Kay Lr, MARQUES, FINANCIAL AID ADMINISTRATOR PCP - General Nurse Practitioner 12/01/17 04/23/21 [address] [place] [address] documented as of this encounter
--- OUTSIDE RECORDS SUMMARY | 2021-11-06 20:38 | XMS_ITS | Encounter Summary ---
:1975 Author Organization [facility] Address [address] [address] Care Team Providers Name Role Phone Mary Kay Lr APRN, SPANISH LECTURER Primary Care Provider [phone] Reason for Referral Procedure/Equipment (Routine) - Incomplete Specialty Diagnoses / Procedures Referred By Contact Refer red To Contact Diagnoses Malignant neoplasm of overlapping sites of right breast in female, estrogen receptor positive (HRC) Encounter for screening mammogram for malignant neoplasm of breast Lori Ramos APRN, Procedures MM Mammogram Screening Lt W 3D Adelfo W CAD SPANISH LECTURER [address] [place] [address] Referral ID Status Reason Start Date Expiration Date Visits V isits Requested Authorized [id number] Incomplete 11/28/2020 02/27/2022 1 1 Reason for Visit Reason Comments Follow-up breast ca Encounter Details Date Type Department Care Team Description 08/28/2020 Office Visit Lori Teixeira ant neoplasm of overlapping sites of right breast in female, estrogen receptor positive (HRC) (Primary Dx); Care at ABHIJEET Lovell RN, SPANISH LECTURER Encounter for screening mammogram for ma lignant neoplasm of breast [facility] [address] [facility] [address] [place] [address] [phone] Social History Tobacco Use Types Packs/Day Years Used Date Smoking Tobacco: Never Smokeless Tobacco: Never Alcohol Use Standard Drinks/Week Comments Yes 7 (1 standard drink = 0.6 oz pure alcoho l) Alcohol Habits Answer Date Recorded How often do you have a drink containing 4 or more times a w [place] 02/01/2020 alcohol? How many drinks containing alcohol do you have Not asked on a typical day when you are drinking? How often do you have six or more drinks on one Not asked occasion? Comment: Not asked Sex Assigned at Date Recorded Not on file documented as of this encounter Last Filed Vital Signs Vital Sign Reading Time Taken Comments Blood Pressure 132/78 08/28/2020 1:58 PM CDT Pulse 62 08/28/2020 1:58 PM CDT Temperature - - Respiratory Rate - - Oxygen Saturation - - Inhaled Oxygen Concentration - - Weight - - Height - - Body Mass Index - - documented in this encounter Progress Notes Lori Ramos, MARQUES, SPANISH LECTURER - 08/28/2020 2:00 PM CDT Hematology/Oncology Clinic Follow-Up Note Date of Service: 08/28/2020 Diagnosis: 1. Stage IA (pT1c, pN0) invasive lobular carcinoma of the right breast, ER positive, IN positive, HER2 negative, grade 2 -discovered on [...] History: Cristiana presents today for follow-up, she has been doing well and continues to recover from chemotherapy. Energy level is slowly returning and she denies noting any new masses, nodules,or adenopathy. She has the occasional hot flash, but states that this is not too bothersome. Some residual numbness on her right breast reconstruction, but she denies any pain. Current Outpatient Medications Medication Sig Dispense Refill [...] medications for this visit. PMH/PSH reviewed in [facility]. REVIEW OF SYSTEMS: A 10 system review was performed and is negative unless previously stated in the history of present illness. Performance Status: 0 - Fully active; no performance restrictions PE: Blood pressure 132/78, pulse 62. Reviewed, unremarkable GEN - Alert and oriented x 3, no acute distress HEENT - Normocephalic and atraumatic, MMM Lymph: No supraclavicular, infraclavicular, or cervical adenopathy Breasts: Right-sided mastectomy with reconstruction, without masses or nodules. Left breast without masses or nodules and RESP - normal respiratory effort EXTREM - No asymmetric lower extremity swelling [...] carcinoma of the right breast, ER positive, IN positive, HER2 negative, grade 2 2. Osteopenia Overall, doing well without concern and tolerating the letrozole with minimal to no side effects. Wediscussed surveillance moving forward and I will have her follow-up with Dr. Cano in 3 months and she will continue with yearly mammography, next due December 2020. Orders placed today. We reviewedside effects of letrozole, including decreased bone density and she was encouraged to continue increased vitamin-D/calcium in her diet and regular exercise. I have as she reach out with any concerns, particularly if she notes any masses, nodules, adenopathy, unexplained pain, or unexplained weight loss. 2. HIV infection Well controlled, follows with Dr. Hicks. All the questions were answered to their satisfaction. Patient expressed good understanding of the diagnosis and treatment plan. After the appointment the patient proceeded to the infusion center for treatment. Lori Ramos APRN, SPANISH LECTURER 3:33 PM 08/28/2020 QOPI Data: Pain: 0 Advanced Directives: Not Discussed This note created using speech-recognition software and may contain unintended word substitutions. documented in this encounter Plan of Treatment Not on filedocumented as of this encounter Results MM Mammogram Screening Lt W 3D Adelfo W CAD (12/21/2020 11:42 AM CLAMMER) Anatomical Region Laterality Modality Breast Left Mammography Specimen (Source) Anatomical Location Collection Method / Collectio n Time Received Time / Laterality Volume Impressions 12/21/2020 2:59 PM CLAMMER : ACR BI-RADS Category 1: Negative RECOMMENDATION: Follow Up Imaging in 12 months - Left The results and recommendations of this examination will be communicated to the patient. Narrative 12/21/2020 2:59 PM CLAMMER MM MAMMOGRAM SCREENING LT W 3D ADELFO [...] of mal ignancy. ?? Lori Ramos APRN, SPANISH LECTURER RAD LIONEL documented in this encounter Visit Diagnoses Diagnosis Malignant neoplasm of overlapping sites of right breast in female, estrogen receptor positive (HRC) - Primary Encounter for screening mammogram for ma lignant neoplasm of breast Other screening mammogram documented in this encounter Care Teams Cath Lab Radiology Technician Relationship Specialty Start Date End Date Mary Kay Lr APRN, SPANISH LECTURER PCP - General Nurse Practitioner 12/01/17 04/23/21 [address] [place] [address] documented as of this encounter
--- OUTSIDE RECORDS SUMMARY | 2021-11-06 20:38 | XMS_ITS | Encounter Summary ---
:1975 Author Organization [facility] Address [address] [place] [address] Care Team Providers Name Role Phone Mary Kay Lr APRN, FOCUSER Primary Care Provider [phone] Encounter Details Date Type Department Care Team Description 05/27/2020 Lab Visit [facility]ign ant neoplasm of Laboratory overlapping sites of right [address] [facility] breast in female, [place] [address] receptor positive (HRC) [phone] Social History Tobacco Use Types Packs/Day Years Used Date Smoking Tobacco: Never Smokeless Tobacco: Never Alcohol Use Standard Drinks/Week Comments Yes 7 (1 standard drink = 0.6 oz pure alcoho l) Alcohol Habits Answer Date Recorded How often do you have a drink containing 4 or more times a w [place] 02/01/2020 alcohol? How many drinks containing alcohol [...] Diagnosis Comme nts CBC AND DIFFERENTIAL STAT 05/27/2020 2:37 PM Malignant neop lasm Results for this PANEL CDT of overlapping sites procedu re are in of right breast in the resul ts female, estrogen section. receptor positive (HRC) COMPLETE BLOOD STAT 05/27/2020 2:37 PM Malignant neoplasm R esults for this COUNT-W/DIFF CDT of overlapping sites procedu re are in of right breast in the resul ts female, estrogen section. receptor positive (HRC) COMP METABOLIC PANEL STAT 05/27/2020 2:37 PM Malignant neop lasm Results for this CDT of overlapping sites procedu re are in of right breast in the resul ts female, estrogen section. receptor positive (HRC) documented in this encounter Results (ABNORMAL) Complete Blood Count-W/Diff (05/27/2020 2:37 PM CDT) [facility] gist Method Time Signature WBC 4.5 3.5 - 10.5 05/27/2020 [facility] x10(9)/L 2:41 PM CDT LABORATORY RBC 3.83 (L) 3.90 - 05/27/2020 [facility] 5.03 2:41 PM CDT LABORATORY x10(12)/L Hemoglobin 11.6 (L) 12.0 - 05/27/2020 [facility] 15.5 g/dL 2:41 PM CDT LABORATORY HCT 35.8 34.9 - 05/27/2020 [facility] 44.5 % 2:41 PM CDT LABORATORY MCV 93.5 80.0 - 05/27/2020 [facility] 100.0 fL 2:41 PM CDT LABORATORY MCH 30.3 27.6 - 05/27/2020 [facility] 33.3 pg 2:41 PM CDT LABORATORY MCHC 32.4 31.5 - 05/27/2020 [facility] 35.2 g/dL 2:41 PM CDT LABORATORY RDW 15.9 (H) 11.9 - 05/27/2020 [facility] 15.5 % 2:41 PM CDT LABORATORY Platelets 207 150 - 450 05/27/2020 [facility] x10(9)/L 2:41 PM CDT LABORATORY Automated NRBC 0 <=0 /100 05/27/2020 [facility] WBC 2:41 PM CDT LABORATORY Neutrophil 2.7 1.7 - 7.0 05/27/2020 [facility] Absolute 10(9)/L 2:41 PM CDT LABORATORY Lymphocyte 0.9 (L) 1.0 - 4.8 05/27/2020 [facility] Absolute 10(9)/L 2:41 PM CDT LABORATORY Monocytes 0.6 0.2 - 0.9 05/27/2020 [facility] Absolute 10(9)/L 2:41 PM CDT LABORATORY Eosinophil 0.1 0.0 - 0.5 05/27/2020 [facility] Absolute 10(9)/L 2:41 PM CDT LABORATORY Basophil 0.1 0.0 - 0.3 05/27/2020 [facility] Absolute 10(9)/L 2:41 PM CDT LABORATORY Immature Gran % 2.0 (H) 0.0 - 0.5 05/27/2020 [facility] % 2:41 PM CDT LABORATORY Specimen Anatomical Collection Method / Collection Time Recei bruno Time (Source) Location / Volume Laterality Blood Venipuncture / 05/27/2020 2:37 05/27/2020 2:38 Unknown PM CDT PM CDT Jessica Cano MD LAB_1 Performing Organization Address City/State/ZIP Code Phon e Number [facility] [address] [place] [address] (ABNORMAL) Comp Metabolic Panel - every 3 weeks (05/27/2020 2:37 PM CDT) [facility] Method Time Signature Sodium 138 136 - 145 05/27/2020 [facility] mmol/L 8:44 PM CDT LABORATORY Potassium 3.9 3.5 - 5.1 05/27/2020 [facility] mmol/L 8:44 PM CDT LABORATORY Chloride 104 98 - 109 05/27/2020 [facility] mmol/L 8:44 PM CDT LABORATORY CO2 26 20 - 29 05/27/2020 [facility] mmol/L 8:44 PM CDT LABORATORY Anion Gap 8 7 - 16 05/27/2020 [facility] mmol/L 8:44 PM CDT LABORATORY Calcium 9.1 8.4 - 10.4 05/27/2020 [facility] mg/dL 8:44 PM CDT LABORATORY BUN 12 7 - 26 05/27/2020 [facility] mg/dL 8:44 PM CDT LABORATORY Creatinine 0.62 0.55 - 05/27/2020 [facility] 1.02 mg/dL 8:44 PM CDT LABORATORY GFR, Estimated >60 >60 05/27/2020 [facility] mL/min/1.7 8:44 PM CDT LABORATORY 3m2 Alkaline 83 40 - 150 05/27/2020 [facility] Phosphatase U/L 8:44 PM CDT LABORATORY AST (SGOT) 27 10 - 40 05/27/2020 [facility] U/L 8:44 PM CDT LABORATORY ALT (SGPT) 21 0 - 55 U/L 05/27/2020 [facility] 8:44 PM CDT LABORATORY Bilirubin, Total 0.3 0.2 - 1.2 05/27/2020 [facility] mg/dL 8:44 PM CDT LABORATORY Protein, Total 6.6 6.4 - 8.3 05/27/2020 [facility] g/dL 8:44 PM CDT LABORATORY Albumin 3.6 3.5 - 5.0 05/27/2020 [facility] g/dL 8:44 PM CDT LABORATORY Glucose 117 (H) 70 - 100 05/27/2020 [facility] mg/dL 8:44 PM CDT LABORATORY Comment: The given reference range is fo r the fasting state. Non-fasting reference range for glucose is 70 - 180 mg/dL. Hours Fasting Unknown 05/27/2020 8:[address] [facility] Specimen Anatomical Collection Method / Collection Time Recei bruno Time (Source) Location / Volume Laterality Blood Venipuncture / 05/27/2020 2:37 05/27/2020 2:38 Unknown PM CDT PM CDT Jessica Cano MD LAB_1 Performing Organization Address City/State/ZIP Code Phon e Number [facility] [address] [place] [address] [facility] [address] [place] [address], [facility] documented in this encounter Visit Diagnoses Diagnosis Malignant neoplasm of overlapping sites of right breast in female, estrogen receptor positive (HRC) documented in this encounter Care Teams Fruit Bar Maker Relationship Specialty Start Date End Date Mary Kay Lr, PUBLICATIONS EDITOR, FOCUSER PCP - General Nurse Practitioner 12/01/17 04/23/21 [address] [place], [place] [address] documented as of this encounter
--- OUTSIDE RECORDS SUMMARY | 2021-11-06 20:38 | XMS_ITS | Encounter Summary ---
:1975 Author Organization [facility] Address [address] [place] [address] Care Team Providers Name Role Phone Mazinrehanajordan Mary Kay Pitt APRN, PERINATAL COORDINATOR Primary Care Provider [phone] Reason for Visit Reason Comments VAGINITIS Encounter Details Date Type Department Care Team Description 05/24/2020 Office Visit [facility] Abdullahi Boss, Vaginal odor (Primary Dx); and Gynecology MARQUES, CNRosalie Vaginal pruritus Phys[facility] [address] [place], [place] [phone] Social History Tobacco Use Types Packs/Day Years Used Date Smoking Tobacco: Never Smokeless Tobacco: Never Alcohol Use Standard Drinks/Week Comments Yes 7 (1 standard drink = 0.6 oz pure alcoho l) Alcohol Habits Answer Date Recorded How often do you have a drink containing 4 or more times a w [place] 02/01/2020 alcohol? How many drinks containing alcohol do you have Not asked on a typical day when you are drinking? How often do you have six or more drinks on one Not asked occasion? Comment: Not asked Sex Assigned at Date Recorded Not on file documented as of this encounter Last Filed Vital Signs Vital Sign Reading Time Taken Comments Blood Pressure 108/65 05/24/2020 1:43 PM CDT Pulse 69 05/24/2020 1:43 PM CDT Temperature - - Respiratory Rate - - Oxygen Saturation - - Inhaled Oxygen Concentration - - Weight 61.2 kg (135 lb) 05/24/2020 1:43 PM CDT Height 170.2 cm (5' 7) 05/24/2020 1:43 PM CDT Body Mass Index 21.14 05/24/2020 1:43 PM CDT documented in this encounter Progress Notes Abdullahi Boss APRN, CNM - 05/24/2020 1:20 PM CDT S: Cristiana is in today with concerns re: possible vaginal infection. She usually gets yeast infectionsbut occasionally will have a bacterial infection. She is known HIV + (diagnosed on routine screening- both she and her tested +). She is on salvage determiner pharmacologic therapy for her HIV and doing well. She was also diagnosed with Stage 1 Breast Ca in the R breast this past year. She did not require radiation but is just completing chemotherapy. She and her recently bought an [employer] in [place] and they have been working with renovating that. O: BP 108/65 (BP Location: Right Arm, BP Cuff Size: Regular) Pulse 69 Ht 5' 7 (1.702 m) Wt 135 lb (61.2 kg) BMI 21.14 kg/m?? Patient desired self collection of vaginal swab A: Rule out vaginitis P: Vaginitis panel sent - will f/u on any abnormal results. Reviewed preventive measures for both yeast and bacterial vaginitis. Abdullahi Boss APRN, CNM documented in this encounter Plan of Treatment Not on filedocumented as of this encounter Procedures Procedure Name Priority Date/Time Associated Diagnosis Comme nts VAGINITIS PANEL Routine 05/24/2020 3:28 PM Vaginal pruritus Re sults for this CDT procedure are i n the results section. documented in this encounter Results (ABNORMAL) Vaginitis Panel (05/24/2020 3:28 PM CDT) [facility] gist Method Time Signature [place] Positive (A) Negative 05/24/2020 [place] vaginalis 5:32 PM CDT LAB Lexi species Negative Negative 05/24/2020 [place] 5:32 PM CDT LAB Trichomonas Negative [facility] LAB Specimen Anatomical Collection Method Collection Time Receive d Time (Source) Location / / Volume Laterality Swab (Source SPECIMEN FROM Non-blood 05/24/2020 3:28 PM 05/25/19 21 4:43 Required) VAGINA / Unknown Collection / CDT PM CDT Unknown Abdullahi Boss APRN, CNM LAB_1 Performing Organization Address City/State/ZIP Code Phon e Number [facility] [address] [place] [address] documented in this encounter Visit Diagnoses Diagnosis Vaginal odor - Primary Unspecified symptom associated with fema le genital organs Vaginal pruritus Pruritus of genital organs documented in this encounter Care Teams Cargo Surveyor Relationship Specialty Start Date End Date Mary Kay Lr, MARQUES, PERINATAL COORDINATOR PCP - General Nurse Practitioner 12/01/17 04/23/21 [address] [place] [address] documented as of this encounter
--- OUTSIDE RECORDS SUMMARY | 2021-11-06 20:38 | XMS_ITS | Encounter Summary ---
:1975 Author Organization [facility] Address [address], [place] [address] Care Team Providers Name Role Phone Mary Kay Lr APRN, DELI BAKERY CLERK Primary Care Provider [phone] Encounter Details Date Type Department Care Team Description 07/07/2020 Notes/[facility] Vance Martinez MD Center at [address] Chemo Therapy [place] [address] [place] [address] [place] [address] Social History Tobacco Use Types Packs/Day Years Used Date Smoking Tobacco: Never Smokeless Tobacco: Never Alcohol Use Standard Drinks/Week Comments Yes 7 (1 standard drink = 0.6 oz pure alcoho l) Alcohol Habits Answer Date Recorded How often do you have a drink containing 4 or more times a w [place] 02/01/2020 alcohol? How many drinks containing alcohol [...] on filedocumented in this encounter Care Teams Industrial Relations Analyst Relationship Specialty Start Date End Date Mary Kay Lr, MARQUES, DELI BAKERY CLERK PCP - General Nurse Practitioner 12/01/17 04/23/21 [address] [place] [address] documented as of this encounter
--- OUTSIDE RECORDS SUMMARY | 2021-11-06 20:38 | XMS_ITS | Encounter Summary ---
:1975 Author Organization [facility] Address [address] [address] Care Team Providers Name Role Phone Mary Kay Lr APRN, LAND CONSERVATION SPECIALIST Primary Care Provider [phone] Reason for Visit Procedure/Equipment (Routine) - Incomplete Specialty Diagnoses / Procedures Referred By Contact Refer red To Contact Diagnoses Pain in both knees, unspecified chronicity Jhon Nayak MD Procedures XR Knee Bilat 3 [address] [place] [address] Referral ID Status Reason Start Date Expiration Date Visits V isits Requested Authorized [id number] Incomplete 10/08/2020 01/07/2022 1 1 Encounter Details Date Type Department Care Team Description 10/08/2020 [facility] [place] Jhon Bermeo Pain in bot h knees, Procedure [place] [address] MD Guillermo unspecified Radiology [address] [place] [address] [place], [place] [address] [address] [place], [place] [phone] (Work) [phone] Social History Tobacco Use Types Packs/Day Years Used Date Smoking Tobacco: Never Smokeless Tobacco: Never Alcohol Use Standard Drinks/Week Comments Yes 7 (1 standard drink = 0.6 oz pure alcoho l) Alcohol Habits Answer Date Recorded How often do you have a drink containing 4 or more times a w [place] 02/01/2020 alcohol? How many drinks containing alcohol [...] Name Priority Date/Time Associated Diagnosis Comme nts XR KNEE BILAT 3 Routine 10/08/2020 4:52 PM Pain in both knees, Results for this VIEWS CDT unspecified procedure are i n chronicity the results section. documented in this encounter Results XR Knee Bilat 3 [...] ty documented in this encounter Care Teams Software Integration Developer Relationship Specialty Start Date End Date Mary Kay Lr, MANAGER TRUST, LAND CONSERVATION SPECIALIST PCP - General Nurse Practitioner 12/01/17 04/23/21 [address] [place] [address] documented as of this encounter
--- OUTSIDE RECORDS SUMMARY | 2021-11-06 20:38 | XMS_ITS | Encounter Summary ---
:1975 Author Organization [facility] Address [address] [place] [address] Care Team Providers Name Role Phone Mary Kay Lr APRN, CNP Primary Care Provider [phone] Encounter Details Date Type Department Care Team Description 05/24/2020 Immunization [facility] Vaccine Encou nter for Program administration of vaccine [address] (Primary Dx) [place] [address] Social History Tobacco Use Types Packs/Day Years Used Date Smoking Tobacco: Never Smokeless Tobacco: Never Alcohol Use Standard Drinks/Week Comments Yes 7 (1 standard drink = 0.6 oz pure alcoho l) Alcohol Habits Answer Date Recorded How often do you have a drink containing 4 or more times a w [place] 02/01/2020 alcohol? How many drinks containing alcohol [...] Primary documented in this encounter Care Teams Mental Health Consultant Relationship Specialty Start Date End Date Mary Kay Lr, MARQUES, GUIDANCE COUNSELOR PCP - General Nurse Practitioner 12/01/17 04/23/21 [address] [place] [address] documented as of this encounter
--- OUTSIDE RECORDS SUMMARY | 2021-11-06 20:38 | XMS_ITS | Encounter Summary ---
:1975 Author Organization [facility] Address [address] [address] Care Team Providers Name Role Phone Mary Kay Lr APRN, FABRIC DESIGNER Primary Care Provider [phone] Encounter Details Date Type Department Care Team Description 09/25/2020 [facility] Vance Martinez MD Center at [address] Chemo Therapy [place] [address] [place] [address] [place] [address] Social History Tobacco Use Types Packs/Day Years Used Date Smoking Tobacco: Never Smokeless Tobacco: Never Alcohol Use Standard Drinks/Week Comments Yes 7 (1 standard drink = 0.6 oz pure alcoho l) Alcohol Habits Answer Date Recorded How often do you have a drink containing 4 or more times a w [place] 02/01/2020 alcohol? How many drinks containing alcohol [...] on filedocumented in this encounter Care Teams Oil Pipeline Operator Relationship Specialty Start Date End Date Mary Kay Lr, MARQUES, FABRIC DESIGNER PCP - General Nurse Practitioner 12/01/17 04/23/21 [address] [place] [address] documented as of this encounter
--- OUTSIDE RECORDS SUMMARY | 2021-11-06 20:38 | XMS_ITS | Encounter Summary ---
:1975 Author Organization [facility] Address [address] [address] Care Team Providers Name Role Phone Mary Kay Lr APRN, BLOOD BANK CREDIT CLERK Primary Care Provider [phone] Encounter Details Date Type Department Care Team Description 09/09/2020 [facility] Cancer Vance Martinez MD Center at [address] Chemo [place] [address] [place] [address] [place] [address] Social History Tobacco Use Types Packs/Day Years Used Date Smoking Tobacco: Never Smokeless Tobacco: Never Alcohol Use Standard Drinks/Week Comments Yes 7 (1 standard drink = 0.6 oz pure alcoho l) Alcohol Habits Answer Date Recorded How often do you have a drink containing 4 or more times a w [place] 02/01/2020 alcohol? How many drinks containing alcohol [...] on filedocumented in this encounter Care Teams Grey Goods Tester Relationship Specialty Start Date End Date Mary Kay Lr, MARQUES, BLOOD BANK CREDIT CLERK PCP - General Nurse Practitioner 12/01/17 04/23/21 [address] [place] [address] documented as of this encounter
--- OUTSIDE RECORDS SUMMARY | 2021-11-06 20:38 | XMS_ITS | Encounter Summary ---
:1975 Author Organization [facility] Address [address] [place] [address] Care Team Providers Name Role Phone Mary Kay Lr APRN, INSTRUCTOR PSYCHIATRIC AIDE Primary Care Provider [phone] Reason for Visit Procedure/Equipment (Routine) - Incomplete Specialty Diagnoses / Procedures Referred By Contact Refer red To Contact Diagnoses S/P hysterectomy Malignant neoplasm of overlapping sites of right breast in female, estrogen receptor positive (HRC) Jessica Cano MD Procedures DXA Bone Density Spine/Hip [address] [place] [address] Referral ID Status Reason Start Date Expiration Date Visits V isits Requested Authorized [id number] Incomplete 05/29/2020 08/28/2021 1 1 Encounter Details Date Type Department Care Team Description 06/26/2020 Ancillary Procedure [place] Bone S/P h ysterectomy; Density Malignant neoplasm of overla pping sites of right breast in female, estrogen receptor positive (HRC) [address] [place], [place] [address] Social History Tobacco Use Types Packs/Day Years Used Date Smoking Tobacco: Never Smokeless Tobacco: Never Alcohol Use Standard Drinks/Week Comments Yes 7 (1 standard drink = 0.6 oz pure alcoho l) Alcohol Habits Answer Date Recorded How often do you have a drink containing 4 or more times a w [place] 02/01/2020 alcohol? How many drinks containing alcohol [...] Name Priority Date/Time Associated Diagnosis Comme nts DXA BONE DENSITY Routine 06/26/2020 4:32 PM S/P hysterec segundo Results for this SPINE/HIP CDT Malignant neoplasm procedure are in of overlapping sites the res ults of right breast in section. female, estrogen receptor positive (HRC) documented in this encounter Results DXA Bone Density Spine/Hip (06/26/2020 4:32 PM CDT) Anatomical Region Laterality Modality Lower Extremity, Spine, Hip, L-Spine Rad iographic Imaging Specimen (Source) Anatomical Location Collection Method / Collectio n Time Received Time / Laterality Volume Narrative 07/04/2020 9:13 AM CDT CLINIC DXA REPORT Patient Name: ??Cristiana Castillo [place]: ??Oracio Mathur PA-C Densitometer: ??Uni-Pixel W (S/N 2 [id number]) PINEDA BONE OSTEOPOROSIS RISK FACTORS FROM PATIENT Q UESTIONNAIRE: ?? The patient is a 45 y.o.female: Calcium intake is adequate. There is no self-reported history of hip, spine, pel vis, humerus, or wrist fracture; no family history of spine fracture; and no family history of hip fracture. She reports no fall(s) over past year. Recently started an aromatase inhibitor. BONE MINERAL DENSITY: Lumbar Spine Vertebrae Included: L1;L2;L3;L4 Bone Mineral Density (gm/cm2): 0.902 T-Score: -1.3 Z-Score: -1 Total Hip Bone Mineral Density (gm/cm2): 0.793 (pa ght) T-Score: -1.2 Z-Score: -0.1 Femoral Neck Bone Mineral Density (gm/cm2): 0.725 T-Score: -1.1 Z-Score: -0.7 FRAX 10 year probability major osteoporotic f racture: 2.5% 10 year probability hip fracture: 0.1% COMPARISON TO PRIOR STUDY: This is a baseline bone density test (fi rst one at [facility]) ASSESSMENT: 1. 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
--- OUTSIDE RECORDS SUMMARY | 2021-11-06 20:38 | XMS_ITS | Encounter Summary ---
:1975 Author Organization [facility] Address [address] [address] Care Team Providers Name Role Phone Mary Kay Lr APRN, CNP Primary Care Provider Encounter Details Date Type Department Care Team Description 10/02/2020 Immunization [facility] [address] [place], [place] [address] Social History Tobacco Use Types Packs/Day Years Used Date Smoking Tobacco: Never Smokeless Tobacco: Never Alcohol Use Standard Drinks/Week Comments Yes 7 (1 standard drink = 0.6 oz pure alcoho l) Alcohol Habits Answer Date Recorded How often do you have a drink containing 4 or more times a w [place] 02/01/2020 alcohol? How many drinks containing alcohol [...] on filedocumented in this encounter Care Teams Tool Die Maker Relationship Specialty Start Date End Date Mary Kay Lr APRN, CHUTE BUILDER PCP - General Nurse Practitioner 12/01/17 04/23/21 [address] [place] [address] documented as of this encounter
--- OUTSIDE RECORDS SUMMARY | 2021-11-06 20:38 | XMS_ITS | Encounter Summary ---
:1975 Author Organization [facility] Address [address], [place] [address] Care Team Providers Name Role Phone Mary Kay Lr APRN, BEHAVIORIST Primary Care Provider [phone] Encounter Details Date Type Department Care Team Description 08/24/2020 [facility] Vance Martinez MD Center at [address] Chemo Therapy [place] [address] [place] [address] [place] [address] Social History Tobacco Use Types Packs/Day Years [...] on filedocumented in this encounter Care Teams Catapult And Arresting Gear Officer Relationship Specialty Start Date End Date Mary Kay Lr, MARQUES, BEHAVIORIST PCP - General Nurse Practitioner 12/01/17 04/23/21 [address] [place] [address] documented as of this encounter
--- OUTSIDE RECORDS SUMMARY | 2021-11-06 20:38 | XMS_ITS | Encounter Summary ---
:1975 Author Organization [facility] Address [address] [address] Care Team Providers Name Role Phone Mary Kay Lr APRN, ELECTRONEURODIAGNOSTIC TECHNOLOGIST Primary Care Provider [phone] Encounter Details Date Type Department Care Team Description 05/12/2020 [facility] Vance Martinez MD Center at [address] Chemo [place] [address] [place] [address] [place] [address] Social History Tobacco Use Types Packs/Day Years Used Date Smoking Tobacco: Never Smokeless Tobacco: Never Alcohol Use Standard Drinks/Week Comments Yes 7 (1 standard drink = 0.6 oz pure alcoho l) Alcohol Habits Answer Date Recorded How often do you have a drink containing 4 or more times a w [place] 02/01/2020 alcohol? How many drinks containing alcohol [...] on filedocumented in this encounter Care Teams Chartered Accountant Relationship Specialty Start Date End Date Mary Kay Lr, MARQUES, ELECTRONEURODIAGNOSTIC TECHNOLOGIST PCP - General Nurse Practitioner 12/01/17 04/23/21 [address] [place] [address] documented as of this encounter
--- OUTSIDE RECORDS SUMMARY | 2021-11-06 20:38 | XMS_ITS | Encounter Summary ---
:1975 Author Organization [facility] Address [address] [place] [address] Care Team Providers Name Role Phone Mary Kay Lr APRN, STEAM CLEANER Primary Care Provider [phone] Reason for Visit Reason Comments ITCHING, VAGINAL Encounter Details Date Type Department Care Team Description 05/23/2020 Nurse Triage [place] [facility], No Pcp , ITCHING, VAGINAL Services-MOP WORKER [address] [address] [place] [address] Social History Tobacco Use Types Packs/Day Years Used Date Smoking Tobacco: Never Smokeless Tobacco: Never Alcohol Use Standard Drinks/Week Comments Yes 7 (1 standard drink = 0.6 oz pure alcoho l) Alcohol Habits Answer Date Recorded How often do you have a drink containing 4 or more times a w [place] 02/01/2020 alcohol? How many drinks containing alcohol do you have Not asked on a typical day when you are drinking? How often do you have six or more drinks on one Not asked occasion? Comment: Not asked Sex Assigned at Date Recorded Not on file documented as of this encounter Nursing Notes Kat Frey - 05/23/2020 1:55 PM CDT Reason for Disposition ??? MODERATE-SEVERE itching (i.e., interferes with school, work, or sleep) Protocols used: VULVAR [id number] Patient calling requesting appointment for further evaluation of vaginal itching. Reports history ofrecurrent yeast and/or BV infections. Symptoms are typically the same every time. Only experiencing itching, and possible slight foul odor. Denies change to discharge, fever, abdominal pain, open cuts or sores. Currently receiving chemotherapy for breast cancer and would like to be treated as soon as possible prior to next chemo treatment. Reviewed protocol recommendations and care advice. Reviewed appointments. Patient established with [facility] and encouraged patient to call office for appointment.If unable to find appointment with [facility], check with primary care. Patient verbalizes understanding and agrees with plan. After phone call, appears patient scheduled with [facility]: Future Appointments Provider Department Center 05/24/2020 1:20 PM Abdullahi Boss APRN, CNM [facility] Problem list reviewed as related to this call. documented in this encounter Plan of Treatment Not on filedocumented as of this encounter Visit Diagnoses Not on filedocumented in this encounter Care Teams Smokehouse Operator Relationship Specialty Start Date End Date Mary Kay Lr APRN, STEAM CLEANER PCP - General Nurse Practitioner 12/01/17 04/23/21 [address] [place] [address] documented as of this encounter
--- OUTSIDE RECORDS SUMMARY | 2021-11-06 20:38 | XMS_ITS | Encounter Summary ---
:1975 Author Organization [facility] Address [address], [place] [address] Care Team Providers Name Role Phone Mary Kay Lr APRN, CHRONIC SPECIALIST Primary Care Provider [phone] Encounter Details Date Type Department Care Team Description 10/03/2020 [facility]ders [facility] Vance Martinez MD Center at [address] Chemo [place] [address] [place] [address] [place] [address] Social History Tobacco Use Types Packs/Day Years Used Date Smoking Tobacco: Never Smokeless Tobacco: Never Alcohol Use Standard Drinks/Week Comments Yes 7 (1 standard drink = 0.6 oz pure alcoho l) Alcohol Habits Answer Date Recorded How often do you have a drink containing 4 or more times a w [place] 02/01/2020 alcohol? How many drinks containing alcohol [...] on filedocumented in this encounter Care Teams It Help Desk Technician Relationship Specialty Start Date End Date Mary Kay Lr, MARQUES, CHRONIC SPECIALIST PCP - General Nurse Practitioner 12/01/17 04/23/21 [address] [place] [address] documented as of this encounter
--- OUTSIDE RECORDS SUMMARY | 2021-11-06 20:39 | XMS_ITS | Encounter Summary ---
:1975 Author Organization [facility] Address [address], [place] [address] Care Team Providers Name Role Phone Mary Kay Lr APRN, DECORATING AND ASSEMBLY SUPERVISOR Primary Care Provider [phone] Reason for Referral Medication Prior Authorization (Routine) - Closed Specialty Diagnoses / Procedures Referred By Contact Refer red To Contact Cheryl Dean PA- C [address] [place] [id number] Referral ID Status Reason Start Date Expiration Date Visits Requ ested Visits Authorized [id number] Closed 1 1 L RUNNER Encounter Details Date Type Department Care Team Description 03/29/2020 Office Visit [facility] Cancer Cheryl Dean, In vasive lobular carcinoma of right breast, stage 1 (HRC) (Primary Dx); Center at [facility] THOM Asymptomatic HIV infection (HRC) Hospital [address] [place] [id number] Social History Tobacco Use Types Packs/Day Years Used Date Smoking Tobacco: Never Smokeless Tobacco: Never Alcohol Use Standard Drinks/Week Comments Yes 7 (1 standard drink = 0.6 oz pure alcoho l) Alcohol Habits Answer Date Recorded How often do you have a drink containing 4 or more times a w [place] 02/01/2020 alcohol? How many drinks containing alcohol do you have Not asked on a typical day when you are drinking? How often do you have six or more drinks on one Not asked occasion? Comment: Not asked Sex Assigned at Date Recorded Not on file documented as of this encounter Last Filed Vital Signs Vital Sign Reading Time Taken Comments Blood Pressure 113/76 03/29/2020 8:43 AM DRILL RUNNER Pulse 79 03/29/2020 8:43 AM DRILL RUNNER Temperature 36.6 ??C (97.8 ??F) 03/29/2020 8:43 AM DRILL RUNNER Respiratory Rate 18 03/29/2020 8:43 AM DRILL RUNNER Oxygen Saturation - - Inhaled Oxygen Concentration - - Weight 59 kg (130 lb) 03/29/2020 8:43 AM DRILL RUNNER Height - - Body Mass Index 20.36 02/15/2020 9:42 AM DRILL RUNNER documented in this encounter Patient Instructions Patient InstructionsCheryl Dean PA-C - 03/29/2020 8:30 AM CST Cristiana Castillo, It was nice to see you in clinic today! Your treatment plan is as follows: Taxotere (docetaxel) + Cytoxan (cyclophosphamide) Day 1, NeulastaDay 2, given every 3 weeks Today, we will proceed with cycle #1 of Taxotere and Cytoxan in the infusion center. Neulasta injection in [place] tomorrow Video visit with me in about a week for toxicity check. Return to the clinic in 3 weeks ( or appt) to see Dr. Martinez or me for cycle #2 chemotherapywith labs (CBC, BMP, LFTs) Start IV with lab draw. HOME INSTRUCTIONS: Medications: -As part of your chemotherapy regimen: -Dexamethasone: Take 8mg (2 tablets) twice daily the day before, day of, and day after chemotherapy For today: take 2 tablets this evening, 2 tablets tomorrow morning, and 2 tablets tomorrow evening -For nausea/vomiting: On a scheduled basis: ondansetron (Zofran) 8mg (1 tablet) every 8 hours for 2 days after chemotherapy, then every 8 hours as needed. If you have breakthrough nausea/vomiting despite taking this: 1. Try first: prochlorperazine (Compazine) 10mg (1 tablet) every 6 hours as needed. 2. Try second: lorazepam (Ativan) 0.5mg (1 tablet) every 6 hours as needed. If they do not help, call the clinic or the nurse care line (after hours/weekends) for instructions.Keep small amounts of food in the stomach regularly and this will prevent nausea as well. Non-medication strategies for nausea include: marvin (tea, lozenges, marvin cristopher), essential oils (peppermint, lavender), and [employer]ands wrist bands. -For body aches/pains related to the Neulasta injection (white blood cell boosting shot): Try loratidine (Claritin) 10mg daily (can take twice daily for 2-3 days if needed). OK to use Tylenol xcov-hqt-rxnsotm for pain, maximum of 4000mg per day. Additional suggestions for general wellness and symptom management during treatment: 1. Sleep: Good sleep habits are important to ensure you are getting enough sleep. Try to keep a stable sleep/wake cycle. Limit naps to less than 1 hour during the day. OK to take melatonin kyel-shu-shyyfoh as needed for sleep (maximum dose = 10mg). Benadryl is also OK to use for sleep (maximum dose = 5 0mg). 2. Exercise: Regular exercise has been shown to help improve energy levels and overall tolerance to chemotherapy. I recommend 30 minutes of zijy-mg-ryxvgfne intensity exercise roughly 5 days per week -this could be a 30-minute walk, an exercise video from the Internet, yoga, riding a bike, or whatever type of exercise you enjoy doing. 3. Diet: Try to focus on a high protein and well-balanced diet. Eat fruits and vegetables. Try to get 6 smaller meals in a day versus just 3 larger meals a day as this can help control nausea, appetitechanges, and feeling like you are getting full early. Use meal supplements like Boost or Ensure if you are having trouble eating. You may notice a change in your taste of foods. If this occurs, keep trying foods to find what tastes good. Also, if you get a metallic taste to your foods, use plastic silverware. We do have dietitians available, if you would like to meet with one of them just let us knowand we can get you set up for an appointment. 4. Meditation: This can be helpful in managing several symptoms, including but not limited to anxiety, insomnia, mood changes, nausea, and pain. There is a free smart phone selvin called [employer] Timer that you can try. Other options for apps are Calm and Headspace. You may also find resources on YouTube or at your local library. 5. Diarrhea: If you develop diarrhea, take Imodium 2 tablets by mouth after the first loose stool, then 1 tablet by mouth after each subsequent loose stool until the diarrhea stops. Do not take more than 8 tablets in a 24 hour period. If it becomes persistent, severe or bloody, or if you develop fevers, please call the clinic. 6. Constipation: If you develop constipation, Use Senna, 1 tablet in the morning and 1 tablet in theevening. If constipation continues, you can increase your dose, do not take more than 6 tablets per day. If you get soft stools, reduce the number of tablets you are taking. If the 6 tablets a day isn't working, try MiraLax daily (see package instructions - typically 1 capful of powder mixed into at least 8oz of fluid). It is important to drink plenty of fluids if you are taking Miralax. Call if you continue to have problems. 7. Mouth sores: To prevent and treat mouth sores, you can use baking soda/salt water gargles 5-6 times a day. Mix 1/4 tsp of table salt and 1/4-1/2 teaspoon of baking soda in 8 ounces of water. If mouth sores are painful, please call us and we can prescribe something called Magic Mouthwash to help with the pain. 8. Heartburn: Heartburn can be a problem with chemotherapy. Avoid spicy, fatty or fried foods if possible. If needed, we may need to start you on a medication for heartburn (Pepcid (famotidine) mhsu-zuv-yfncvlx twice per day, Prilosec prpc-ssr-qjnulct once per day). 9. Fever: It is very important that you call us if you develop a fever (temperature of 100.4F or higher). Call with any questions or concerns. The clinic phone number is [phone] (8- 4:30). After hours, please call the nurse care line at [phone]. All the best, Cheryl Dean PA-C Appointments scheduled AVS to be given in [facility] 03/29/2020, 10:03 AM L RUNNER documented in this encounter Progress Notes Cheryl Dean PA-C - 03/29/2020 8:30 AM CST [facility] Oncology/Hematology Follow up Visit Note Date: 03/29/2020 Hematologic/Oncologic History Diagnosis:??R breast invasive lobular carcinoma ?- ER+, UT+, Her2- ?- genetic testing: with DIS3L2 gene VUS c.2371G>A; POLE gene VUS??c.6775C>T Stage:??IA ([id number]) Intent of treatment:??curative Current treatment:??Docetaxel + Cyclophosphamide chemotherapy - C1 anticipated 03/29/2020 Disease/treatment history: 11/2019: mammogram/ultrasound: R breast 1.0 x 0.6 x 1.0 cm mass ?- R breast core needle biopsy ?- path: invasive lobular carcinoma, grade 2, ER+ (80%), UT+ (80%), Her2- (IHC 0) with associated ADH and ALH 12/2019: MRI breast: R breast with known bx-proven malignancy with multifocal non-mass enhancement; L breast with nonspecific non-mass enhancement; no axillary or internal mammary AZUL bilaterally ?- L breast biopsy, path negative for malignancy ?- genetic testing: with DIS3L2 gene VUS c.2371G>A; POLE gene VUS??c.6775C>T 02/2020: R mastectomy and SLNB - path: 1.1 x 1.0 x 0.8 cm invasive lobular carcinoma, grade 2, negative margins; 0/2 SLNs involved 03/2020: Initiation of adjuvant chemotherapy with TC Primary Oncologist: Dr. Helen Martinez Interval History: Cristiana Castillo is a 45-year-old female with breast cancer who presents to the clinic for scheduled visit prior to chemotherapy. She is here with her Hola for today's visit. She is doing well overall. Her biggest concerns about chemotherapy side effects are nausea and constipation. She did take her steroids yesterday (both doses) and this morning. She is planning to get her hair cut short early next week and is working to get a wig. ROS: 10 point ROS completed. Negative except for those documented above. ECOG PS: 0 Exam: Blood pressure 113/76, pulse 79, temperature 97.8 ??F (36.6 ??C), temperature source Tympanic, resp.rate 18, weight 130 lb (59 kg). General: Well-developed, well-nourished. Awake, alert and cooperative, and appears to be in no acutedistress. HEENT: Normocephalic, atraumatic. PERRL, EOMI. Sclera anicteric, conjunctivae clear. Pulmonary: Normal respiratory effort. Skin: Skin normal color, texture and turgor with no lesions or eruptions. Neurologic: CN II-XII intact as tested. Speech clear, gait stable. Psychiatric: Alert and oriented to person, place, and time. Mood and affect appropriate. Good judgment and insight. Medications: Current Outpatient Medications Medication Sig Dispense Refill [...] needed for N/V 30 Tablet 2 ??? pegfilgrastim-cbqv (UDENYCA) 6 MG/0.6ML injection Inject 6 mg subcutaneously once for 1 dose. Given every 3 weeks, 24-72 hours after chemotherapy administration. 0.6 mL 3 ??? prochlorperazine (COMPAZINE) 10 MG tablet Take [...] Frequency Provider Last Rate Last Admin ??? ALBUterol sulfate HFA inhaler 2 Puff 2 Puff Inhalation PRN per Parameters Helen Martinez MD ??? cyclophosphamide (CYTOXAN) 1,000 mg in sodium chloride 0.9 % 500 mL infusion 1,000 mg Intravenous Once Helen Martinez MD ??? diphenhydrAMINE (BENADRYL) injection 50 mg 50 mg Intravenous PRN per Parameters Helen Martinez MD 50 mg at 03/29/20 1148 ??? EPINEPHrine (EPIPEN) injection 0.3 mg 0.3 mg Intramuscular PRN per Parameters Helen Martinez MD ??? methylPREDNISolone sodium succinate (SOLU-medrol) injection 125 mg 125 mg Intravenous PRN per Parameters Helen Martinez MD ??? sodium chloride 0.9% infusion 500 mL Intravenous Once Helen Martinez MD 20 mL/hr at 045 500 mL at 03/29/20 1045 Allergies: No Known Allergies Past Medical History: Diagnosis Date ??? Asthma ??? HIV (human immunodeficiency virus infection) (HRC) Past Surgical History: Procedure Laterality Date ??? HYSTERECTOMY 2011 with [facility] (in [place]) for endometriosis/cysts ??? right mastectomy 02/15/2020 [facility] ??? TONSILLECTOMY Labs/Imaging: Reviewed today in clinic with patient; please see EMR for full details QOPI Data: See EMR Distress Tool information: See EMR Assessment/Plan: 1. Stage I invasive lobular carcinoma of the R breast We reviewed patient's treatment plan and discussed potential side effects, including but not limitedto: nausea/vomiting, hair loss, drop in blood counts causing anemia, infections, or bleeding leadingto hospitalization, fatigue, diarrhea, constipation, mouth sores, skin changes, muscle and bone pain, neuropathy, toxicity to kidney and liver function, cystitis, toxicity to heart and lung and potential infusion reactions. She and her asked outstanding questions. Provided Care Guide and Eating Hints handouts. Labs reviewed and are within parameters for treatment today. Today, we will proceed with cycle #1 of Taxotere and Cytoxan in the infusion center. Neulasta injection in [place] tomorrow. Video visit with me in about a week for toxicity check. Return to the clinic in 3 weeks ( or appt) to see Dr. Martinez or me for cycle #2 chemotherapywith labs (CBC, BMP, LFTs). Start IV with lab draw. We briefly discussed possibly transferring care to Dr. Cano in [place] given she lives about [place] hour[place] drive from [facility]. She and Hola will discuss and we will talk more at her next visit. If she chooses to keep care at [facility], I did send a prescription for Neulasta to specialty pharmacy for possible self- injection at home after future chemotherapy cycles. 2. Asymptomatic HIV Sent message to Dr. Hicks re: initiation of chemotherapy. Will follow any recs given by ID for additional monitoring etc. At least 45 minutes were spent with this patient in counseling and coordination of care, review of records, collecting medical data and/or discussing with multidisciplinary team members. Encouraged to call with any questions or concerns prior to next visit. All questions were answered to the best of my ability and patient was in agreement with this plan. Cheryl Dean PA-C 03/29/2020, 1:35 PM [facility] Pager: [phone] This note may have been transcribed via Fluency and may have unintentional errors in wording, spelling, or grammar despite review. L RUNNER Tejal Mon RN - 03/29/2020 8:30 AM CST Completed per providers orders. Video visit 04/05, RTC 04/18 (labs, provider, infusion) Tejal Mon RN 03/29/2020 4:33 PM L RUNNER documented in this encounter Plan of Treatment Not on filedocumented as of this encounter Visit Diagnoses Diagnosis Invasive lobular carcinoma of right [address], stage 1 (HRC) - Primary Asymptomatic HIV infection (HRC) Asymptomatic human immunodeficiency viru s (HIV) infection status documented in this encounter Care Teams Hay Sorter Relationship Specialty Start Date End Date Mary Kay Lr, NETWORK STRATEGIST, DECORATING AND ASSEMBLY SUPERVISOR PCP - General Nurse Practitioner 12/01/17 04/23/21 [address] [place] [address] documented as of this encounter
--- OUTSIDE RECORDS SUMMARY | 2021-11-06 20:39 | XMS_ITS | Encounter Summary ---
:1975 Author Organization [facility] Address [address], [place] [address] Care Team Providers Name Role Phone Mary Kay Lr APRN, GOVERNMENT GAUGER Primary Care Provider [phone] Reason for Visit Reason Comments Lymphedema Therapies (Routine) - Closed Specialty Diagnoses / Procedures Referred By Contact Refer red To Contact Diagnoses Invasive lobular carcinoma of breast, stage 1, right (HRC) Briana Perez MB, [address] [address] Referral ID Status Reason Start Date Expiration Date Visits Requ ested Visits Authorized [id number] Closed 02/27/2020 02/26/[phone] Encounter Details Date Type Department Care Team Description 03/22/2020 Telemedicine [facility] Magaña, Invasive lobu lar carcinoma of right breast, stage 1 (HRC) (Primary Dx); [facility] Anabell Kate OT R/L Malignant neoplasm of overlapping sites of right breast in female, estrogen receptor positive (HRC); Occupational Therapy [address] At risk for lymphedema [address] [place] [address] [phone] Social History Tobacco Use Types Packs/Day Years Used Date Smoking Tobacco: Never Smokeless Tobacco: Never Alcohol Use Standard Drinks/Week Comments Yes 7 (1 standard drink = 0.6 oz pure alcoho l) Alcohol Habits Answer Date Recorded How often do you have a drink containing 4 or more times a w [place] 02/01/2020 alcohol? How many drinks containing alcohol do you have Not asked on a typical day when you are drinking? How often do you have six or more drinks on one Not asked occasion? Comment: Not asked Sex Assigned at Date Recorded Not on file documented as of this encounter Progress Notes Anabell Magaña, OTR/L - 03/22/2020 3:15 PM CST The patient has been notified of following: This visit will be conducted via video between you and your therapist, as we have found certain health care needs can be provided without the need for an in- person physical exam. Your therapist will provide further instructions and programming notes. Mode of transmission: Astrostar Time service began: 3:19 pm Time service ended: 4:02 pm 43 minutes Patient location: Patient's Residence Provider location: [facility] @ [place], [place] *Please note this visit was conducted via video. Therefore, objective measures may be estimated or measured by alternative methods. [facility] OUTPATIENT THERAPY LYMPHEDEMA SCREENING & EDUCATION INITIAL EVALUATION ASSESSMENT Patient presents with potential for lymphedema, scarring, hypersensitivity and need for education regarding lymphedema. Order received for breast center post op education. 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 Skilled Lymphedema Therapy performed today to reach goals listed below. Pt plans to follow up re: strengthening ABC's in the future. Goals: Patient will understand signs and symptoms of lymphedema and understand ways to decrease susceptibility to lymphedema. MET Patient will be educated regarding lymphedema and precautions. MET Patient will be educated and follow through with good skin care techniques. MET Patient will be educated and verbalize understanding on scar massage and will begin at 6 weeks post op. MET Pt will be independent with Strengthening After Breast Cancer program and understand how to safely progress independently in order to decrease likelihood of future lymphedema. - not addressed this date PLAN Plan for Next Session: Patient demonstrates adequate understanding of signs and symptoms of lymphedema and patient is aware to contact PCP if signs/symptoms arise in future and to obtain lymphedema consult. Pt will follow up to progress [facility] goals Treatment Plan: Manual Therapy Therapeutic Exercise Self-Care/Home Management Training Frequency & Duration of Treatment: 2 sessions every week. Expected Total Visits: 5. VISIT INFORMATION Other Insurance Info: [employer] Today's Visit Number: 1 Progress Note Needed at Visit Number: 10 Date of Surgery: 02/15/20 Medical Diagnosis: Right breast invasive lobular carcinoma Past Medical History, Diagnostic Tests, and Medications: Diagnosis:??R breast invasive lobular carcinoma ?- ER+, [place]+, Her2- ?- genetic testing: with DIS3L2 gene VUS c.2371G>A; POLE gene VUS??c.6775C>T Stage:??IA ([id number]) Disease/treatment history: 12/2019: MRI breast: R breast with known bx-proven malignancy with multifocal non-mass enhancement; L breast with nonspecific non-mass enhancement; no axillary or internal mammary AZUL bilaterally? 11/2019: mammogram/ultrasound: R breast 1.0 x 0.6 x 1.0 cm [facility] breast center post op education. 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 as calculated from the following: Height as of 02/15/20: 5' 7 (1.702 m). Weight as of 02/15/20: 130 lb (59 kg). Sensation: NT Wound/Incision: Not Observed Due to video visits - pt reports incision has been observed by plastics and has no concerns Scar: Healing Not visualized Skin: Within normal limits. Range of Motion: WNL Stemmer Sign: none Edema: None noted No edema visualized and pt reports no edema Volume: Not measured due to video visits No subjective reports of edema THERAPY OUTCOMES None TODAY'S SESSION Initial Evaluation: 30 minutes A Low Complexity Occupational Therapy Evaluation CPT 46847 was completed. Occupational profile/history: brief history relating to presenting problem. Assessment: 1-3 performance deficits. Please see function and assessment sections. Clinical decision making: limited number of treatment options. Self Care and Home Management: 13 minutes. Education regarding lymphedema, lymphedema precautions and risk reduction practices. Education about how to safely return to activities including: exercises and return to caring for horses, lymphedema risk reduction Instruction in lymphatic stimulation exercises with handout issued. Instruction in scar massage. Reviewed options for SABC program - handout provided and pt will schedule in future. Patient's Response to Therapy: Active participant in evaluation and education Home Program: Lymph \stim Skin care and monitor For volume changes Will follow up for education re: SABC Timed Code Minutes: 13 minutes Untimed Code Minutes: 30 minutes Total Treatment Time: 43 minutes Anabell Magaña OTR/L 03/22/2020 INUOUS TOWEL ROLLER Associated attestation - Birana Perez MB, [facility] - 03/25/2020 3:58 PM CONTINUOUS TOWEL ROLLER Agree with the above. JO Bauman, [facility] 03/25/2020, 3:58 PM documented in this encounter Plan of Treatment Scheduled Referrals Name Type Priority Associated Diagnoses Order S chedule Lymphedema Therapy Referral Routine Invasive lobular carci noma Ordered: 02/27/2020 of breast, stage 1, right (HRC) documented as of this encounter Visit Diagnoses Diagnosis Invasive lobular carcinoma of right [address], stage 1 (HRC) - Primary Malignant neoplasm of overlapping sites of right breast in female, estrogen receptor positive (HRC) At risk for lymphedema documented in this encounter Care Teams Histology Manager Relationship Specialty Start Date End Date Mary Kay Lr, REAR ADMIRAL, GOVERNMENT GAUGER PCP - General Nurse Practitioner 12/01/17 04/23/21 [address] [place] [address] documented as of this encounter
--- OUTSIDE RECORDS SUMMARY | 2021-11-06 20:39 | XMS_ITS | Encounter Summary ---
:1975 [facility] Address [address] [place] [address] Care Team Providers Name Role Phone Mary Kay Lr APRN, ADJUNCT PROFESSOR Primary Care Provider [phone] Reason for Visit Reason Comments Follow-up breast ca Encounter Details Date Type Department Care Team Description 04/17/2020 [facility] [place], Malign ant neoplasm of overlapping sites of right breast in female, estrogen receptor positive (HRC) (Primary Dx); Care at [place] [facility] Bartholomew MD Asymptomatic HIV infection (HRC); [facility] [address] [place] [phone] Social History Tobacco Use Types Packs/Day Years Used Date Smoking Tobacco: Never Smokeless Tobacco: Never Alcohol Use Standard Drinks/Week Comments Yes 7 (1 standard drink = 0.6 oz pure alcoho l) Alcohol Habits Answer Date Recorded How often do you have a drink containing 4 or more times a w [place] 02/01/2020 alcohol? How many drinks containing alcohol do you have Not asked on a typical day when you are drinking? How often do you have six or more drinks on one Not asked occasion? Comment: Not asked Sex Assigned at Date Recorded Not on file documented as of this encounter Last Filed Vital Signs Vital Sign Reading Time Taken Comments Blood Pressure 120/74 04/17/2020 7:56 AM SURVEY RESEARCHER Pulse 70 04/17/2020 7:56 AM SURVEY RESEARCHER Temperature 36.6 ??C (97.9 ??F) 04/17/2020 7:56 AM SURVEY RESEARCHER Respiratory Rate - - Oxygen Saturation - - Inhaled Oxygen Concentration - - Weight 60.5 kg (133 lb 6.1 oz) 04/17/2020 7:56 AM SURVEY RESEARCHER Height - - Body Mass Index 20.89 02/15/2020 9:42 AM SURVEY RESEARCHER documented in this encounter Patient Instructions Patient InstructionsFaiza Pabon RN - 04/17/2020 8:00 AM CST Cristiana Castillo, It was nice to see you in clinic today! You were seen today for early stage, hormone positive breast cancer Your treatment plan is as follows: TC chemotherapy with Taxotere and Cytoxan every 3 weeks PLAN: 1. Today, proceed with cycle #2 chemotherapy 2. Return tomorrow for Neulasta 3. Video visit with Olri next 4. Return to the clinic in 3 weeks to see me with labs and chemotherapy and return the following dayfor Neulasta Call with any questions or concerns. The clinic phone number is [phone] (follow prompts for [facility]). All the best, Yudy Cano MD Hematology/Oncology [facility] 9:05 AM EY RESEARCHER documented in this encounter Progress Notes Jessica Cano MD - 04/17/2020 8:00 AM CST Hematology/Oncology Clinic Follow-Up Note Date of Service: 04/17/2020 Diagnosis: 1. Stage IA (pT1c, pN0) invasive lobular carcinoma of the right breast, ER positive, MT positive, HER2 negative, grade 2 -discovered on screening mammogram December 2019 -right breast mastectomy with sentinel lymph node biopsy 02/15/2020 -Oncotype recurrence score 27, high risk -of note, patient had RAMYA/BSO 2011, had been on estradiol until this diagnosis Treatment: 1. Taxotere and Cytoxan chemotherapy -started 03/29/2020 Treatment goal: Curative Interval History: Lori tolerated the 1st cycle of chemotherapy overall quite well. She said the 1st8 days where the most difficult. The most bothersome symptoms were stomach upset. She did not feel like it was nausea, but more of an upset unsettled stomach type of symptom. She started taking famotidine regularly and found that this helped quite a bit. After the 8 days past, she was able to eat normally and had normal energy. She did have some body aches as well. She was taking Claritin and Tylenol. Antibiotics helped with the urinary symptoms. Otherwise no mouth sores. She was very proactive about this with salt soda rinses. Current Outpatient Medications Medication Sig Dispense Refill [...] medications for this visit. PMH/PSH reviewed in [facility]. REVIEW OF SYSTEMS: A 10 system review was performed and is negative unless previously stated in the history of present illness. Performance Status: 0 - Fully active; no performance restrictions PE: Blood pressure 120/74, pulse 70, temperature 97.9 ??F (36.6 ??C), temperature source Temporal Artery, weight 133 lb 6.1 oz (60.5 kg). GEN - Alert and oriented x 3, no acute distress HEENT - Normocephalic and atraumatic, MMM NECK - No lymphadenopathy, no thyromegaly CV - Regular rate and rhythm, no murmurs/rubs/gallops. RESP - Generally clear to auscultation, bilaterally. No accessory muscle use ABD - Bowel sounds present, soft, nontender, no masses or organomegaly EXTREM - No asymmetric lower extremity swelling [...] carcinoma of the right breast, ER positive, MT positive, HER2 negative, grade 2 2. Dyspepsia secondary chemotherapy 3. Myalgias secondary to Neulasta Tolerated 1st cycle overall quite well. Continue with plans for TC chemotherapy every 3 weeks with Neulasta support. We will investigate home Neulasta use, so she does not need to drive to clinic for the injection. She will continue on the Pepcid, Claritin, Tylenol for body aches. At the end of chemotherapy, we will proceed aromatase inhibitor since she has had her ovaries removed. Will need a DEXA scan as baseline. She will not require radiation as she had a mastectomy. Chemotherapy Docetaxel (Taxotere) 75 mg/m2 IV once [...] and treatment plan. Yudy Cano MD Hematology/Oncology [facility] Data: Pain: 0 Advanced Directives: Not Discussed This note created using speech-recognition software and may contain unintended word substitutions. EY RESEARCHER documented in this encounter Plan of Treatment Not on filedocumented as of this encounter Visit Diagnoses Diagnosis Malignant neoplasm of overlapping sites of right breast in female, estrogen receptor positive (HRC) - Primary Asymptomatic HIV infection (HRC) Asymptomatic human immunodeficiency viru s (HIV) infection status Dyspepsia Dyspepsia and other specified disorders of function of stomach documented in this encounter Care Teams Hospital Receptionist Relationship Specialty Start Date End Date Mary Kay Lr, TRACK LINER OPERATOR, ADJUNCT PROFESSOR PCP - General Nurse Practitioner 12/01/17 04/23/21 [address] [place] [address] documented as of this encounter
--- OUTSIDE RECORDS SUMMARY | 2021-11-06 20:39 | XMS_ITS | Encounter Summary ---
:1975 Author Organization [facility] Address [address], [place] [address] Care Team Providers Name Role Phone Mary Kay Lr APRN, AIRPLANE TECHNICIAN Primary Care Provider [phone] Encounter Details Date Type Department Care Team Description 03/29/2020 [facility] Invas yana lobular carcinoma of right breast, stage 1 (HRC); Laboratory Malignant neoplasm of overla pping sites of right breast in female, estrogen receptor positive (HRC) [address] [place] [address] Social History Tobacco Use Types Packs/Day Years Used Date Smoking Tobacco: Never Smokeless Tobacco: Never Alcohol Use Standard Drinks/Week Comments Yes 7 (1 standard drink = 0.6 oz pure alcoho l) Alcohol Habits Answer Date Recorded How often do you have a drink containing 4 or more times a w [place] 02/01/2020 alcohol? How many drinks containing alcohol do you have Not asked on a typical day when you are drinking? How often do you have six or more drinks on one Not asked occasion? Comment: Not asked Sex Assigned at Date Recorded Not on file documented as of this encounter Progress Notes Samuel Burgos MD - 03/29/2020 8:00 AM PROP SETTER Addended by: SAMUEL BURGOS on: 04/04/2020 11:29 AM Modules accepted: Orders SETTER documented in this encounter Nursing Notes Ann Muniz - 03/29/2020 8:00 AM CST Patient's insurance does not cover pegfilgrastim-cbqv (UDENYCA) 6 MG/0.6ML injection. The covered alternative is Ziextenzo. If this is appropraite, please send a new prescription to [facility]. Thank you! Ann Muniz 04/04/2020, 11:21 AM SETTER documented in this encounter Plan of Treatment Not on filedocumented as of this encounter Procedures Procedure Name Priority Date/Time Associated Diagnosis Comme nts CBC AND DIFFERENTIAL STAT 03/29/2020 8:17 AM Invasive lobul ar Results for this PANEL PROP SETTER carcinoma of right procedure are in breast, stage 1 the results (HRC) section. Malignant neoplasm of overlapping sites of right breast in female, estrogen receptor positive (HRC) COMPLETE BLOOD STAT 03/29/2020 8:17 AM Invasive lobular Res ults for this COUNT-W/DIFF PROP SETTER carcinoma of right procedure are in breast, stage 1 the results (HRC) section. Malignant neoplasm of overlapping sites of right breast in female, estrogen receptor positive (HRC) LIVER PANEL(HEPATIC STAT 03/29/2020 8:17 AM Invasive lobula r Results for this FUNCTION PANEL) PROP SETTER carcinoma of right proced ure are in breast, stage 1 the results (HRC) section. Malignant neoplasm of overlapping sites of right breast in female, estrogen receptor positive (HRC) BASIC METABOLIC PANEL STAT 03/29/2020 8:17 AM Invasive lobu lar Results for this PROP SETTER carcinoma of right procedure are in breast, stage 1 the results (HRC) section. Malignant neoplasm of overlapping sites of right breast in female, estrogen receptor positive (HRC) documented in this encounter Results (ABNORMAL) Complete Blood Count-W/Diff (03/29/2020 8:17 AM PROP SETTER) P athologist Signature WBC 10.3 3.5 - 10.5 03/29/2020 [facility] x10(9)/L 8:36 AM [facility] RBC 4.64 3.90 - 03/29/2020 [facility] 5.03 8:36 AM [facility] x10(12)/L Hemoglobin 13.3 12.0 - 03/29/2020 [facility] 15.5 g/dL 8:36 AM [facility] HCT 40.0 34.9 - 03/29/2020 [facility] 44.5 % 8:36 AM [facility] MCV 86.2 80.0 - 03/29/2020 [facility] 100.0 fL 8:36 AM [facility] MCH 28.7 27.6 - 03/29/2020 [facility] 33.3 pg 8:36 AM [facility] MCHC 33.3 31.5 - 03/29/2020 [facility] 35.2 g/dL 8:36 AM [facility] RDW 11.9 11.9 - 03/29/2020 [facility] 15.5 % 8:36 AM [facility] Platelets 257 150 - 450 03/29/2020 [facility] x10(9)/L 8:36 AM [facility] Automated NRBC 0 <=0 /100 03/29/2020 [facility] WBC 8:36 AM [facility] Neutrophil 8.6 (H) 1.7 - 7.0 03/29/2020 [facility] Absolute 10(9)/L 8:36 AM [facility] Lymphocyte 1.1 1.0 - 4.8 03/29/2020 [facility] Absolute 10(9)/L 8:36 AM [facility] Monocytes 0.6 0.2 - 0.9 03/29/2020 [facility] Absolute 10(9)/L 8:36 AM [facility] Eosinophil 0.0 0.0 - 0.5 03/29/2020 [facility] Absolute 10(9)/L 8:36 AM [facility] Basophil 0.0 0.0 - 0.3 03/29/2020 [facility] Absolute 10(9)/L 8:36 AM [facility] Immature Gran % 1.0 (H) 0.0 - 0.5 03/29/2020 [facility] % 8:36 AM [facility] Specimen Anatomical Collection Method / Collection Time Recei bruno Time (Source) Location / Volume Laterality Blood Venipuncture / 03/29/2020 8:17 03/29/2020 8:29 Unknown AM PROP SETTER AM PROP SETTER Samuel Burgos MD LAB_1 Performing Organization Address City/State/ZIP Code Phon e Number [address] [address] LIVER PANEL(HEPATIC FUNCTION PANEL) (03/29/2020 8:17 AM PROP SETTER) P athologist Signature Alkaline 107 40 - 150 03/29/2020 [facility] Phosphatase U/L 8:59 AM [facility] Bilirubin, Total 0.5 0.2 - 1.2 03/29/2020 [facility] mg/dL 8:59 AM [facility] Bilirubin, 0.2 0.0 - 0.5 03/29/2020 [facility] Direct mg/dL 8:59 AM [facility] AST (SGOT) 15 10 - 40 03/29/2020 [facility] U/L 8:59 AM [facility] ALT (SGPT) 31 0 - 55 U/L 03/29/2020 [facility] 8:59 AM [facility] Protein, Total 7.6 6.4 - 8.3 03/29/2020 [facility] g/dL 8:59 AM [facility] Albumin 4.2 3.5 - 5.0 03/29/2020 [facility] g/dL 8:59 AM [facility] Specimen Anatomical Collection Method / Collection Time Recei bruno Time (Source) Location / Volume Laterality Blood Venipuncture / 03/29/2020 8:17 03/29/2020 8:29 Unknown AM PROP SETTER AM PROP SETTER Samuel Burgos MD LAB_1 Performing Organization Address City/State/ZIP Code Phon e Number [address] [address] (ABNORMAL) BASIC METABOLIC PANEL (03/29/2020 8:17 AM [facility]) athologist Signature Sodium 138 136 - 145 03/29/2020 [facility] mmol/L 8:59 AM [facility] Potassium 3.4 (L) 3.5 - 5.1 03/29/2020 [facility] mmol/L 8:59 AM [facility] Chloride 100 98 - 109 03/29/2020 [facility] mmol/L 8:59 AM [facility] CO2 25 20 - 29 03/29/2020 [facility] mmol/L 8:59 AM [facility] Anion Gap 13 7 - 16 03/29/2020 [facility] mmol/L 8:59 AM [facility] Calcium 9.3 8.4 - 10.4 03/29/2020 [facility] mg/dL 8:59 AM [facility] BUN 12 7 - 26 03/29/2020 [facility] mg/dL 8:59 AM [facility] Creatinine 0.73 0.55 - 03/29/2020 [facility] 1.02 mg/dL 8:59 AM [facility] GFR, Estimated >60 >60 03/29/2020 [facility] mL/min/1.7 8:59 AM [facility] 3m2 Glucose 182 (H) 70 - 100 03/29/2020 [facility] mg/dL 8:59 AM [facility] Comment: The given reference range is fo r the fasting state. Non-fasting reference range for glucose is 70 - 180 mg/dL. Hours Fasting N/A 03/29/2020 8:59 AM PROP SETTER [facility] Specimen Anatomical Collection Method / Collection Time Recei bruno Time (Source) Location / Volume Laterality Blood Venipuncture / 03/29/2020 8:17 03/29/2020 8:29 Unknown AM PROP SETTER AM PROP SETTER Samuel Burgos MD LAB_1 Performing Organization Address City/State/ZIP Code Phon e Number [address] [address] documented in this encounter Visit Diagnoses Diagnosis Invasive lobular carcinoma of right [address], stage 1 (HRC) Malignant neoplasm of overlapping sites of right breast in female, estrogen receptor positive (HRC) documented in this encounter Care Teams Bmw Service Technician Relationship Specialty Start Date End Date Mary Kay Lr, WARE TESTER, AIRPLANE TECHNICIAN PCP - General Nurse Practitioner 12/01/17 04/23/21 [address] [place] [address] documented as of this encounter
--- OUTSIDE RECORDS SUMMARY | 2021-11-06 20:39 | XMS_ITS | Encounter Summary ---
:1975 Author Organization [facility] Address [address] [place] [address] Care Team Providers Name Role Phone Mary Kay Lr APRN, CHRISTA Primary Care Provider Encounter Details Date Type Department Care Team Description 04/26/2020 Telemedicine [facility] Cancer Lori Ramos ant neoplasm of overlapping sites of right breast in female, estrogen receptor positive (HRC) (Primary Dx); Care at Adrianne Cat APRN, Dyspe psia; [facility] Asymptomatic HIV infection (HRC) [address] [phone] Social History Tobacco Use Types Packs/Day Years Used Date Smoking Tobacco: Never Smokeless Tobacco: Never Alcohol Use Standard Drinks/Week Comments Yes 7 (1 standard drink = 0.6 oz pure alcoho l) Alcohol Habits Answer Date Recorded How often do you have a drink containing 4 or more times a w [place] 02/01/2020 alcohol? How many drinks containing alcohol do you have Not asked on a typical day when you are drinking? How often do you have six or more drinks on one Not asked occasion? Comment: Not asked Sex Assigned at Date Recorded Not on file documented as of this encounter Progress Notes Lori Ramos APRN, CHRISTA - 04/26/2020 9:30 AM CDT Hematology/Oncology Clinic Follow-Up Note Date of Service: 04/26/2020 Diagnosis: 1. Stage IA (pT1c, pN0) invasive lobular carcinoma of the right breast, ER positive, OR positive, HER2 negative, grade 2 -discovered on screening mammogram December 2019 -right breast mastectomy with sentinel lymph node biopsy 02/15/2020 -Oncotype recurrence score 27, high risk -of note, patient had RAMYA/BSO 2011, had been on estradiol until this diagnosis Treatment: 1. Taxotere and Cytoxan chemotherapy -started 03/29/2020 Treatment goal: Curative Interval History: Today's visit was done by video. Lori tolerated the 2nd cycle of chemotherapy better than the first. She was able to stay ahead of her GI upset and arthralgias with scheduled tylenoland pepcid. She has not had any nausea. Noted fatigue on days 3-5, but she felt more prepared for this and took sometime off from work. 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 She stays busy with her many animals, including horses. She denies any mucositis or neuropathy. Does note taste changes but feels she was able to keep up with her PO intake, inlcuding fluids. She has been afebrile and is w/o SOB. Plan for 1st covid vaccine (Brenco) next week. Some insomnia. She uses melatonin and meditates. Otherwise, deneis any acute concerns. Current Outpatient Medications Medication Sig Dispense Refill [...] medications for this visit. PMH/PSH reviewed in [facility]. REVIEW OF SYSTEMS: A 10 system review was performed and is negative unless previously stated in the history of present illness. Performance Status: 0 - Fully active; no performance restrictions PE: There were no vitals taken for this visit. GEN - Alert and oriented x 3, no acute distress RESP - Normal resp effort NEURO - No gross focal deficits on limited examination PSYCH - Appropriate affect, conversant Data summary: I have reviewed all the labs, images and notes in detail. The pertinent findings are summarized in this note. ASSESSMENT AND PLAN: 1. Stage IA (pT1c, pN0) invasive lobular carcinoma of the right breast, ER positive, OR positive, HER2 negative, grade 2 2. Dyspepsia secondary chemotherapy 3. Myalgias secondary to Neulasta Tolerated 2nd cycle overall quite well. Continue with plans for TC chemotherapy every 3 weeks with Neulasta support. She was able to give herself her neulasta at home. She will continue on the Pepcid,Claritin, Tylenol for body aches. At the end of chemotherapy, we will proceed aromatase inhibitor since she has had her ovaries removed. Will need a DEXA scan as baseline. She will not require radiation as she had a mastectomy. We did discuss that it would be best to avoid certain activities with her animals given myelosupression, particularly those that may keep up dust, such as bailing hay and cleaning up horse excrement. She will ask her spouse to help with these chores and states she will wear an N95 mask when in the barn. Chemotherapy Docetaxel (Taxotere) 75 mg/m2 IV once [...] good understanding of the diagnosis and treatment plan and encouraged to call with any concerns. Lori Ramos CNP Hematology/Oncology [facility] Data: Pain: 0 Advanced Directives: Not Discussed This note created using speech-recognition software and may contain unintended word substitutions. documented in this encounter Plan of Treatment Not on filedocumented as of this encounter Visit Diagnoses Diagnosis Malignant neoplasm of overlapping sites of right breast in female, estrogen receptor positive (HRC) - Primary Dyspepsia Dyspepsia and other specified disorders of function of stomach Asymptomatic HIV infection (HRC) Asymptomatic human immunodeficiency viru s (HIV) infection status documented in this encounter Care Teams Superintendent [employer] Mill Relationship Specialty Start Date End Date Mary Kay Lr APRN, CHRISTA PCP - General Nurse Practitioner 12/01/17 04/23/21 [address] [place] [address] documented as of this encounter
--- OUTSIDE RECORDS SUMMARY | 2021-11-06 20:39 | XMS_ITS | Encounter Summary ---
:1975 Author Organization [facility] Address [address], [place] [address] Care Team Providers Name Role Phone Deepjordan Mary Kay Pitt APRN, SEAFOOD PACKER Primary Care Provider [phone] Reason for Visit Reason Onset Date Comments Refill 04/04/2020 Ziextenzo Encounter Details Date Type Department Care Team Description 04/04/2020 Refill [facility] Vance Martinez MD Refill (Ziextenzo) Center at [id number] [place] [address] [phone] Social History Tobacco Use Types Packs/Day Years Used Date Smoking Tobacco: Never Smokeless Tobacco: Never Alcohol Use Standard Drinks/Week Comments Yes 7 (1 standard drink = 0.6 oz pure alcoho l) Alcohol Habits Answer Date Recorded How often do you have a drink containing 4 or more times a w the [place] 02/01/2020 alcohol? How many drinks containing alcohol do you have Not asked on a typical day when you are drinking? How often do you have six or more drinks on one Not asked occasion? Comment: Not asked Sex Assigned at Date Recorded Not on file documented as of this encounter Nursing Notes Ann Batista, PharmD - 04/04/2020 12:53 PM CST Please review and sign pended order for Ziextenzo. The previous order was sent out of a different department and does not allow us to do the PA electronically. This order will allow us to do so. Thanks, Ann Batista, PharmD 04/04/2020, 12:54 PM OGICAL ECONOMIST documented in this encounter Plan of Treatment Not on filedocumented as of this encounter Visit Diagnoses Diagnosis Invasive lobular carcinoma of right [address], stage 1 (HRC) Malignant neoplasm of overlapping sites of right breast in female, estrogen receptor positive (HRC) documented in this encounter Care Teams Hydrotherapist Relationship Specialty Start Date End Date Mary Kay Lr, BILLER, SEAFOOD PACKER PCP - General Nurse Practitioner 12/01/17 04/23/21 [address] [place] [address] documented as of this encounter
--- OUTSIDE RECORDS SUMMARY | 2021-11-06 20:39 | XMS_ITS | Encounter Summary ---
:1975 Author Organization [email or web address] Address [address] [address] Care Team Providers Name Role Phone Deepjordan Mary Kay Pitt APRN, OIL WELL SERVICES SUPERINTENDENT Primary Care Provider [phone] Reason for Visit Reason Comments Refill BIKTARVY 50-200-25 MG tablet [Pharmacy Med Name: Biktarvy Oral Tablet 50-200-25 MG] Encounter Details Date Type Department Care Team Description 03/29/2020 Refill [facility] 401 Chante Sharma MD Refill (BIKTARVY Infectious Disease [address] 50-200-25 MG tablet [facility] [address] [Pharmacy Med Name: [place] [address] Biktarvy Oral Tablet [phone] 50-200-25 MG]) Social History Tobacco Use Types [...] documented as of this encounter Nursing Notes Vicky Son RN - 03/30/2020 3:03 PM CST Further Assistance Needed on Refill from Clinician RN reviewed. Medication not listed on standing order. -> Medication cannot be delegated. Last qualifying visit: 01/11/2020 (in INFECTIOUS DISEASE with MARIE SHARMA) Next scheduled visit: None Last ordered by MARIE SHARMA: 03/14/2019 (381 days ago) QTY: 90, Refills: 3, Sig: take 1 tablet by mouth daily. (unchanged) Review pended order for accuracy and sign if appropriate and Close encounter Requested Prescriptions Pending Prescriptions Disp Refills ??? BIKTARVY 50-200-25 MG tablet [Pharmacy Med Name: Biktarvy Oral Tablet 50-200-25 MG] 90 Tablet 0 Sig: Take 1 Tablet by mouth daily. Vicky Son RN 03/30/2020, 3:15 PM [employer] MA[employer] Interface, Out Surescripts Prov Query - 03/29/2020 7:47 PM CST BIKTARVY 50-200-25 MG tablet [Pharmacy Med Name: Biktarvy Oral Tablet 50-200-25 MG] Unassigned -> Medication cannot be delegated. Last qualifying visit: 01/11/2020 (in INFECTIOUS DISEASE with MARIE SHARMA) Next scheduled visit: None Last ordered by MARIE SHARMA: 03/14/2019 (381 days ago) QTY: 90, Refills: 3, Sig: take 1 tablet by mouth daily. (unchanged) Powered by [employer], Reference: [id number], 03/29/2020 7:46:58 PM PRODUCT MANAGEMENT INTERNSHIP, Pool: [facility]AM ([id number]) [employer] documented in this encounter Plan of Treatment Not on filedocumented as of this encounter Visit Diagnoses Not on filedocumented in this encounter Care Teams Cafe Associate Relationship Specialty Start Date End Date Mary Kay Lr, MEDICAL EQUIPMENT REPAIR TECHNICIAN, OIL WELL SERVICES SUPERINTENDENT PCP - General Nurse Practitioner 12/01/17 04/23/21 [address] [place], [place] [address] documented as of this encounter
--- OUTSIDE RECORDS SUMMARY | 2021-11-06 20:39 | XMS_ITS | Encounter Summary ---
:1975 Author Organization [facility] Address [address] [place] [address] Care Team Providers Name Role Phone Mary Kay Lr APRN, CNP Primary Care Provider [phone] Reason for Visit Reason Comments LAB RESULTS Encounter Details Date Type Department Care Team Description 04/11/2020 [facility]phone [facility], LAB RESULTS Nathen Campbell APRN PROGRAM ADVISOR Oncology [address] [place] [id number] [place] [address] [phone] Social History Tobacco Use Types Packs/Day Years Used Date Smoking Tobacco: Never Smokeless Tobacco: Never Alcohol Use Standard Drinks/Week Comments Yes 7 (1 standard drink = 0.6 oz pure alcoho l) Alcohol Habits Answer Date Recorded How often do you have a drink containing 4 or more times a w [place] 02/01/2020 alcohol? How many drinks containing alcohol do you have Not asked on a typical day when you are drinking? How often do you have six or more drinks on one Not asked occasion? Comment: Not asked Sex Assigned at Date Recorded Not on file documented as of this encounter Nursing Notes Lori Ramos APRN, CHRISTA - 04/11/2020 2:24 PM CST ONCOLOGY PHONE NOTE Spoke with Cristiana over the phone. Negative leukocytes/nitrites, but noted bacteria. This may be a contaminant, but she continues to have significant burning when she urinates, to the point she is hesitant to even void. We discussed that this could be secondary to her cyclophosphamide, but given that she is undergoing chemotherapy, and the degree of her symptoms, will give her a brief course of Bactrim. She does note frequent yeast infections with antibiotics, typically treated with fluconazole, so I will give her a prescription for this as well. ANI Ramos, MARQUES, WOOD GANG SAWYER 2:25 PM 04/11/2020 RE ADMINISTRATOR documented in this encounter Plan of Treatment Not on filedocumented as of this encounter Visit Diagnoses Diagnosis Dysuria - Primary Yeast infection of the vagina Candidiasis of vulva and vagina documented in this encounter Care Teams Fiberline Supervisor Relationship Specialty Start Date End Date Mary Kay Lr, MARQUES, WOOD GANG SAWYER PCP - General Nurse Practitioner 12/01/17 04/23/21 [address] [place] [address] documented as of this encounter
--- OUTSIDE RECORDS SUMMARY | 2021-11-06 20:39 | XMS_ITS | Encounter Summary ---
:1975 Author Organization [facility] Address [address] [address] Care Team Providers Name Role Phone Mary Kay Lr APRN, CHRISTA Primary Care Provider [phone] Reason for Visit Reason Comments Follow-up Encounter Details Date Type Department Care Team Description [facility] neoplasm of overlapping sites of right breast in female, estrogen receptor positive (HRC) (Primary Dx); Care at Adrianne Cat APRN, Latoya ipation, unspecified constipation type; [facility] Chemotherapy-induced nausea; [id number] Arthralgia, unspecified joint; [address] Gastroesophageal reflux dise ase, unspecified whether esophagitis present [phone] Social History Tobacco Use Types Packs/Day Years Used Date Smoking Tobacco: Never Smokeless Tobacco: Never Alcohol Use Standard Drinks/Week Comments Yes 7 (1 standard drink = 0.6 oz pure alcoho l) Alcohol Habits Answer Date Recorded How often do you have a drink containing 4 or more times a w [place] 02/01/2020 alcohol? How many drinks containing alcohol do you have Not asked on a typical day when you are drinking? How often do you have six or more drinks on one Not asked occasion? Comment: Not asked Sex Assigned at Date Recorded Not on file documented as of this encounter Progress Notes Lori Ramos APRN, CHRISTA - 04/05/2020 2:00 PM CST [facility] Oncology/Hematology Follow up Visit Note Date: 04/05/2020 Hematologic/Oncologic History Diagnosis:??R breast invasive lobular carcinoma ?- ER+, NC+, Her2- ?- genetic testing: with DIS3L2 gene VUS c.2371G>A; POLE gene VUS??c.6775C>T Stage:??IA ([id number]) Intent of treatment:??curative Current treatment:??Docetaxel + Cyclophosphamide chemotherapy - C1 anticipated 03/29/2020 Disease/treatment history: 11/2019: mammogram/ultrasound: R breast 1.0 x 0.6 x 1.0 cm mass ?- R breast core needle biopsy ?- path: invasive lobular carcinoma, grade 2, ER+ (80%), NC+ (80%), Her2- (IHC 0) with associated ADH [...] grade 2, negative margins; 0/2 SLNs involved 03/29/2020: Initiation of adjuvant chemotherapy with TC Primary Oncologist: Dr. Helen Martinez Interval History: Cristiana's visit today was done by phone in an effort to minimize clinic visits during the COVID-19 pandemic. She had her 1st cycle of OTC on 03/29/2020. She did have multiple xnte-gv-elftxumv side effects. Her biggest side effect has been ongoing arthralgias in her legs and shoulders. Acetaminophen seems to be helping this. She has had stomach upset, not necessarily nausea, feeling as if she might haveacid buildup. She she has started taking famotidine p.r.n.. Nausea has been reasonably well controlled with prochlorperazine. She has been trying to hold off on taking the Zofran as she is quite concerned regarding constipation, particularly as she has struggled with hemorrhoids in the past. There wasa day when she felt perhaps a little constipated. She is using a senna tea (Smooth Move), and has senna tablets on hand. She feels this is reasonably well controlled. She did have some loose stools yesterday. She is without shortness of breath, cough, or fever. ROS: 10 point ROS completed. Negative except for those documented above. ECOG PS: 0 Exam: There were no vitals taken for this visit. Deferred Medications: Current Outpatient Medications Medication Sig Dispense [...] No current facility-administered medications for this visit. Allergies: No Known Allergies Past Medical History: Diagnosis Date ??? Asthma ??? HIV (human immunodeficiency virus infection) (HRC) Past Surgical History: Procedure Laterality Date ??? HYSTERECTOMY 2011 with [facility] (in [place]) for endometriosis/cysts ??? right mastectomy 02/15/2020 [facility] ??? TONSILLECTOMY Labs/Imaging: Reviewed today in clinic with patient; please see EMR for full details QOPI Data: See EMR Distress Tool information: See EMR Assessment/Plan: 1. Stage I invasive lobular carcinoma of the R breast Currently undergoing adjuvant TCC, status post 1 cycle. Tolerating reasonably well. See symptom management below. She will continue to follow-up with Dr. Cnao for her next cycle of treatment. Reiterated side effects that include, but are not limited to nausea, vomiting, diarrhea, constipation, neuropathy myelosuppression, and alopecia and I as she notify the clinic any acute concerns in the interim. 2. Asymptomatic HIV Sent message to Dr. Hicks re: initiation of chemotherapy. Will follow any recs given by ID for additional monitoring etc. 3. Symptom management. We did discuss being proactive with symptom management. Written information provided via Unveil[employer] and recommendations as below discussed Nausea ??? Would continue to take prochlorperazine 10 mg every 6 hours scheduled for the 1st 3 days after chemotherapy and may take as needed thereafter ??? Continue with Zofran 8 mg every 8 hours p.r.n. for any breakthrough nausea. Counseled on side effects, including constipation. ??? If nausea unabated, encouraged to call the clinic Constipation ??? May continue senna tea ??? If above is ineffective, at an Over the counter Senna 1-4 tablets Arthralgias. May be secondary to Neulasta versus docetaxel (typically more common with paclitaxel) ??? Continue loratadine ??? May continue acetaminophen 1 g t.i.d. p.r.n.. May take scheduled for a few days following treatment. GERD/stomach upset ??? Famotidine 20 mg b.i.d. scheduled through duration of chemotherapy. Time spent with patient for appointment: 30 minutes with more than 50% of time spent counseling patient regarding: Past medical history, current symptoms of concern, review of medications and supplements, discussion of possible tests, and follow-up instructions. Time spent prior to the appointment in preparation and after the appointment to complete it: 15 minutes Total time = 45 minutes Encouraged to call with any questions or concerns prior to next visit. All questions were answered to the best of my ability and patient was in agreement with this plan. Lori Ramos APRN, GROUNDMAN 04/05/2020, 5:10 PM This note may have been transcribed via Fluency and may have unintentional errors in wording, spelling, or grammar despite review. CTOR SUMMER SESSIONS documented in this encounter Plan of Treatment Not on filedocumented as of this encounter Visit Diagnoses Diagnosis Malignant neoplasm of overlapping sites of right breast in female, estrogen receptor positive (HRC) - Primary Constipation, unspecified constipation t ype Chemotherapy-induced nausea Nausea alone Arthralgia, unspecified joint Gastroesophageal reflux disease, unspeci fied whether esophagitis present documented in this encounter Care Teams Tree Trimmer Relationship Specialty Start Date End Date Mary Kay Lr APRN, GROUNDMAN PCP - General Nurse Practitioner 12/01/17 04/23/21 [address] [place] [address] documented as of this encounter
--- OUTSIDE RECORDS SUMMARY | 2021-11-06 20:39 | XMS_ITS | Encounter Summary ---
:1975 Author Organization [facility] [facility] Address [address] [place] [address] Care Team Providers Name Role Phone Mary Kay Lr APRN, CREDENTIALING COORDINATOR Primary Care Provider [phone] Reason for Visit Reason Comments Breast Cancer Encounter Details Date Type Department Care Team Description 03/30/2020 Hospital Encounter [facility] Invasive lobular carcinoma o f right breast, stage 1 (HRC) (Primary Dx); [id number] [employer] Malignant neoplasm of overla pping sites of right breast in female, estrogen receptor positive (HRC) [place] [address] Social History Tobacco Use Types Packs/Day Years Used Date Smoking Tobacco: Never Smokeless Tobacco: Never Alcohol Use Standard Drinks/Week Comments Yes 7 (1 standard drink = 0.6 oz pure alcoho l) Alcohol Habits Answer Date Recorded How often do you have a drink containing 4 or more times a w [place] 02/01/2020 alcohol? How many drinks containing alcohol [...] Take 2 Tablets by 12 Tablet 5 02/10/202008/28/2020 4 MG tabletIndications: mouth two times a [...] 6 Inject 6 mg 4 Each 1 04/04/2020 MG/0.6ML subcutaneously See SOSYIndications: Admin Instructions. Invasive [...] documented as of this encounter Progress Notes Vonda Rashid RN - 03/30/2020 2:00 PM CST Is this the first dose: Yes History of previous reactions? n/a Premedications: no Patient arrived for Udenyca injection. Vital signs stable. No signs of infection. Pt was educated onmedication during her chemotherapy appt yesterday at [facility], pt also took Claritin this morning andplans to take again tomorrow and the day after. Tolerated injection well. Discharged in stable condition. Pt plans to establish care with Dr. Cano and receive her treatments here in [place] going forward. DIGITAL MARKETING documented in this encounter Plan of Treatment [...] MAR Action Action Date Dose Rate Site pegfilgrastim-cbqv Given 03/30/2020 2:21 PM 6 mg Abdominal Tissue (UDENYCA) injection 6 mg VP DIGITAL MARKETING 6 mg, Subcutaneous, ONCE, On Thu03/30/20 at 1430, For 1 dose documented in this encounter Care Teams Fire Lieutenant Marine Relationship Specialty Start Date End Date Mary Kya Lr, COMMAND POST CRAFTSMAN, CREDENTIALING COORDINATOR PCP - General Nurse Practitioner 12/01/17 04/23/21 [address] [place] [address] documented as of this encounter
--- OUTSIDE RECORDS SUMMARY | 2021-11-06 20:39 | XMS_ITS | Encounter Summary ---
:1975 Author Organization [employer] Address [address] [address] Care Team Providers Name Role Phone Mary Kay Lr APRN, CRYPTOLOGIC LINGUIST Primary Care Provider [phone] Reason for Visit Reason Onset Date Comments Post Op Exam DOS 02/15/20 DTI ROUTINE, FOLLOW-UP 03/26/2020 Encounter Details Date Type Department Care Team Description 03/26/2020 Office Visit [facility] Plastic Stephanie Sotow-up examination Surgeons MD [place] following surgery [address] [place] [address] (Primary Dx) [address] [place] [address] Social History Tobacco Use Types Packs/Day Years Used Date Smoking Tobacco: Never Smokeless Tobacco: Never Alcohol Use Standard Drinks/Week Comments Yes 7 (1 standard drink = 0.6 oz pure alcoho l) Alcohol Habits Answer Date Recorded How often do you have a drink containing 4 or more times a w [place] 02/01/2020 alcohol? How many drinks containing alcohol do you have Not asked on a typical day when you are drinking? How often do you have six or more drinks on one Not asked occasion? Comment: Not asked Sex Assigned at Date Recorded Not on file documented as of this encounter Patient Instructions Patient InstructionsMerlene Mas LPN - 03/26/2020 1:30 PM CST Follow up with Dr. Soto when you're done with chemo Please call with any concerns until then If you experience any increased redness, pain, swelling, discharge that is white or green and foul smelling, fever or chills, please contact us to be seen sooner. [phone]. If this occurs after business hours or during the weekend, please contact the [facility] Nurse Line at [phone]. O GAME DEVELOPER documented in this encounter Progress Notes Stephanie Soto MD - 03/26/2020 1:30 PM CST F/u after R DTI recon. Doing well, does need chemo Exam incisio healing well R side maybe slightly larger Plan Ok to start chemo See me after chemo O GAME DEVELOPER documented in this encounter Plan of Treatment Not on filedocumented as of this encounter Visit Diagnoses Diagnosis Follow-up examination following surgery - Primary Follow-up examination, following unspeci fied surgery documented in this encounter Care Teams Audit Intern Relationship Specialty Start Date End Date Mary Kay Lr, PROFESSIONAL NURSING TUTOR, CRYPTOLOGIC LINGUIST PCP - General Nurse Practitioner 12/01/17 04/23/21 [address] [place] [address] documented as of this encounter
--- OUTSIDE RECORDS SUMMARY | 2021-11-06 20:39 | XMS_ITS | Encounter Summary ---
:1975 Author Organization [facility] Address [address], [place] [address] Care Team Providers Name Role Phone Mary Kay Lr APRN, GEOMAGNETICIAN Primary Care Provider [phone] Reason for Visit Reason Comments FOLLOW-UP,ONCOLOGY Encounter Details Date Type Department Care Team Description 03/30/2020 [facility] Cheryl Dean, DIONTE ALLISON-OSVALDO,ONCOLOGY [facility] [id number] [place] [address] (Wo rk) Social History Tobacco Use Types Packs/Day Years Used Date Smoking Tobacco: Never Smokeless Tobacco: Never Alcohol Use Standard Drinks/Week Comments Yes 7 (1 standard drink = 0.6 oz pure alcoho l) Alcohol Habits Answer Date Recorded How often do you have a drink containing 4 or more times a w [place] 02/01/2020 alcohol? How many drinks containing alcohol do you have Not asked on a typical day when you are drinking? How often do you have six or more drinks on one Not asked occasion? Comment: Not asked Sex Assigned at Date Recorded Not on file documented as of this encounter Nursing Notes Cheryl Dean PA-C - 03/30/2020 9:39 AM CST I called Cristiana to check on her after D1 of chemotherapy yesterday. She feels pretty good. Slight nausea last night and this morning, but is taking Zofran every 8 hours as directed. A bit early to tell if she is constipated or not, but plans to get Senna tea and pear juice later today. She will have Neulasta in [place] this afternoon and has already taken some Claritin. We discussed what to expect over the next few days and I encouraged her to call care line over the weekend if she needs anything. I will otherwise do toxicity check video visit with her next week as scheduled. She would also like to transfer her care to Dr. Cano in [place] for her convenience for her next infusion. Routing to Dr. Martinez as FYI and to Dr. Cano for coordination of next chemo (not sureif she will need new patient visit, and likely would need to do virtual visit on when KB in [place] and then go for chemo in [place] that - of April 16). Cheryl Dean PA-C 03/30/2020, 9:43 AM TRONICS SPECIALIST documented in this encounter Plan of Treatment Not on filedocumented as of this encounter Visit Diagnoses Not on filedocumented in this encounter Care Teams Cuff Cutter Relationship Specialty Start Date End Date Mary Kay Lr, EMPLOYEE HEALTH NURSE, GEOMAGNETICIAN PCP - General Nurse Practitioner 12/01/17 04/23/21 [address] [place] [address] documented as of this encounter
--- OUTSIDE RECORDS SUMMARY | 2021-11-06 20:39 | XMS_ITS | Encounter Summary ---
:1975 Author Organization [employer] Address [address] [place] [address] Care Team Providers Name Role Phone Mary Kay Lr APRN, PRODUCTION WOOD CRAFTSMAN Primary Care Provider [phone] Reason for Visit Reason Comments Breast Cancer Encounter Details Date Type Department Care Team Description 04/17/2020 Hospital Encounter [facility] Invasive lobular carcinoma o f right breast, stage 1 (HRC) (Primary Dx); [address] [employer] Malignant neoplasm of overla pping sites of right breast in female, estrogen receptor positive (HRC) [place] [address] Social History Tobacco Use Types Packs/Day Years Used Date Smoking Tobacco: Never Smokeless Tobacco: Never Alcohol Use Standard Drinks/Week Comments Yes 7 (1 standard drink = 0.6 oz pure alcoho l) Alcohol Habits Answer Date Recorded How often do you have a drink containing 4 or more times a w [place] 02/01/2020 alcohol? How many drinks containing alcohol [...] Take 2 Tablets by 12 Tablet 5 /0 10/202008/28/2020 4 MG tabletIndications: mouth two times [...] documented as of this encounter Progress Notes Curtis Espinoza - 04/17/2020 8:30 AM CST Is this the first dose: no History of previous infusion reactions? Yes, flushing and lower back pain Premedications: 50mg PO benadryl, pepcid, zofran, decadron, 500cc NS. Patient arrived for D1C2 TC infusion via PIV. Vital signs stable. Weight stable. Labs are within parameters to proceed with treatment as ordered. No signs/symptoms of infection. Patient educated regarding SQ injections. Tolerated infusion well. Discharged in stable condition. Will return to clinic for next treatment asscheduled in 3 weeks. Patient is set up to give her own pegfilgrastim at home tomorrow. Curtis Espinoza 11:25 AM 04/17/2020 ORMANCE MAKEUP ARTIST documented in this encounter Plan of Treatment [...] Dose Rate Site cyclophosphamide (CYTOXAN) 1,000 Started 04/17/2020 11:54 AM 1,000 mg mg in sodium chloride 0.9 % 500 PERFORMANCE MAKEUP ARTIST mL infusion 1,000 mg, Intravenous, Administer over 0.5 Hours, ONCE, On Thu04/17/20 at 1200, For 1 dose, WARNING: This medication MUST be administered by oncology staff. This medication is a HIGH RISK/HIGH ALERT medication. Hazardous waste disposal required. Administration: Double glove, chemo gown; if no closed-system drug-transfer device (CSTD), include eye protection dexamethasone (DECADRON) tablet 12 mg Given 04/17/2020 10:09 AM PERFORMANCE MAKEUP ARTIST 12 mg 12 mg, Oral, ONCE, On Thu04/17/20 at 1030, For 1 dose, Give 30-60 minutes prior to chemotherapy as pre-med. May be given IV diphenhydrAMINE (BENADRYL) capsule 50 mg Given 04/17/2020 10:09 AM PERFORMANCE MAKEUP ARTIST 50 mg 50 mg, Oral, ONCE, On Thu04/17/20 at 1030, For 1 dose DOCEtaxel (TAXOTERE) 120 mg in sodium Started 04/17/2020 10:46 AM PERFORMANCE MAKEUP ARTIST 120 mg chloride 0.9 % 250 mL chemo infusion 120 mg, Intravenous, Administer over 1 Hours, ONCE, On Thu04/17/20 at 1100, For 1 dose, 75mg/m2 x 1.67m2 = [...] protection famotidine (PEPCID) tablet 20 mg Given 04/17/2020 10:09 AM PERFORMANCE MAKEUP ARTIST 20 mg 20 mg, Oral, ONCE, On Thu04/17/20 at 1030, For 1 dose ondansetron (ZOFRAN) tablet 16 mg Given 04/17/2020 10:09 AM PERFORMANCE MAKEUP ARTIST 16 mg 16 mg, Oral, ONCE, On Thu04/17/20 at 1030, For 1 dose, Give 30-60 minutes prior to chemotherapy as pre-med. May be given IV sodium chloride 0.9% injection 10-60 mL Given 04/17/2020 12:36 PM PERFORMANCE MAKEUP ARTIST 10 mL 10-60 mL, Intravenous, PRN BEFORE&AFTER MEDICATIONS OR LAB DRAW, Line Patency, Starting on Thu04/17/20 at 1009, Until Thu04/17/20 at 1558, For 1 day documented in this encounter Care Teams Pipe Threader Relationship Specialty Start Date End Date Mary Kay Lr, STONE SANDBLASTER, PRODUCTION WOOD CRAFTSMAN PCP - General Nurse Practitioner 12/01/17 04/23/21 [address] [place] [address] documented as of this encounter
--- OUTSIDE RECORDS SUMMARY | 2021-11-06 20:39 | XMS_ITS | Encounter Summary ---
:1975 Author Organization Pending sale to [facility] Address [address] [place] [address] Care Team Providers Name Role Phone Mary Kay Lr APRN, ENTRY PROCESSOR Primary Care Provider [phone] Encounter Details Date Type Department Care Team Description 04/10/2020 Notes/Orders Pending sale to [facility] Lori Ramos (Primary Dx) Care at ABHIJEET Lovell RN, ENTRY PROCESSOR [facility] [address] [place] [id number] [phone] Social History Tobacco Use Types Packs/Day Years Used Date Smoking Tobacco: Never Smokeless Tobacco: Never Alcohol Use Standard Drinks/Week Comments Yes 7 (1 standard drink = 0.6 oz pure alcoho l) Alcohol Habits Answer Date Recorded How often do you have a drink containing 4 or more times a w [place] 02/01/2020 alcohol? How many drinks containing alcohol do you have Not asked on a typical day when you are drinking? How often do you have six or more drinks on one Not asked occasion? Comment: Not asked Sex Assigned at Date Recorded Not on file documented as of this encounter Progress Notes Bird Reynolds MD - 04/10/2020 1:33 PM STAFFING DIRECTOR Addended by: BIRD REYNOLDS on: 04/11/2020 02:11 PM Modules accepted: Orders FING DIRECTOR documented in this encounter Plan of Treatment Not on filedocumented as of this encounter Results (ABNORMAL) Urine Culture (04/11/2020 12:44 PM STAFFING DIRECTOR) [facility] F?rsat Bu F?rsat Method Time Signature Urine Culture Growth (A) 04/12/2020 [facility] 2:35 PM STAFFING DIRECTOR HOSPITAL Urine Culture <10,000 CFU/mL 04/12/2020 [facility] Multiple 2:35 PM STAFFING DIRECTOR HOSPITAL Bacterial Morphotypes Specimen Anatomical Collection Method Collection Time Receive d Time (Source) Location / / Volume Laterality Urine URINE SPECIMEN Non-blood 04/11/2020 12:44 COLLECTION, CLEAN Collection / PM STAFFING DIRECTOR 12:[address] CATCH / Unknown Unknown Bird Reynolds MD LAB_1 Performing Organization Address City/State/ZIP Code Phon e Number [address] [address] (ABNORMAL) UA Conditional UC (04/11/2020 12:44 PM STAFFING DIRECTOR) [facility] F?rsat Bu F?rsat Method Time Signature Urine Culture Urinalysis 04/11/2020 [place] Comment results do 2:02 PM STAFFING DIRECTOR LABORATORY not meet criteria for urine culture reflex. Urine Color Straw Straw-Yello 04/11/2020 [place] w 2:02 PM STAFFING DIRECTOR LABORATORY Urine Clarity Clear Clear 04/11/2020 [place] 2:02 PM STAFFING DIRECTOR LABORATORY Specific 1.010 1.005 - 04/11/2020 [place], Urine 1.030 2:02 PM STAFFING DIRECTOR LABORATORY PH Urine 7.5 5.0 - 8.0 04/11/2020 [place] 2:02 PM STAFFING DIRECTOR LABORATORY Protein, Urine Negative Neg/Trace 04/11/2020 [place] Qual (mg/dL) 2:02 PM STAFFING DIRECTOR LABORATORY Glucose Urine Negative Negative 04/11/2020 [place] Qual (mg/dL) 2:02 PM STAFFING DIRECTOR LABORATORY Ketones, Urine Negative Negative 04/11/2020 [place] (mg/dL) 2:02 PM STAFFING DIRECTOR LABORATORY Urobilinogen, 0.2 <2.0 04/11/2020 [place] Urine (EU/dL) 2:02 PM STAFFING DIRECTOR LABORATORY Bilirubin Negative Negative 04/11/2020 [place] Urine 2:02 PM STAFFING DIRECTOR LABORATORY Blood, Urine Negative Neg/Trace 04/11/2020 [place] 2:02 PM STAFFING DIRECTOR LABORATORY Nitrite Urine Negative Negative 04/11/2020 [place] 2:02 PM STAFFING DIRECTOR LABORATORY Leukocyte Est. Negative Negative 04/11/2020 [place] 2:02 PM STAFFING DIRECTOR LABORATORY Red Blood 0-3 0 - 3 /HPF 04/11/2020 [place] Cells 2:02 PM STAFFING DIRECTOR LABORATORY White Blood 0-5 0 - 5 /HPF 04/11/2020 [place] Cells 2:02 PM STAFFING DIRECTOR LABORATORY Bacteria Occasional None Seen 04/11/2020 [place] (A) /HPF 2:02 PM STAFFING DIRECTOR LABORATORY Squamous Moderate (A) None Seen, 04/11/2020 [place] Epithelial Occasional, 2:02 PM STAFFING DIRECTOR LABORATORY Cells Few /HPF Urine Source Clean Catch 04/11/2020 [place] 2:02 PM STAFFING DIRECTOR LABORATORY Specimen Anatomical Collection Method Collection Time Receive d Time (Source) Location / / Volume Laterality Urine URINE SPECIMEN Non-blood 04/11/2020 12:44 COLLECTION, CLEAN Collection / PM STAFFING DIRECTOR 12:[address] CATCH / Unknown Unknown Lori Ramos APRN, CHRISTA LAB_1 Performing Organization Address City/State/ZIP Code Phon e Number [facility] [address] [place] [address] documented in this encounter Visit Diagnoses Diagnosis Dysuria - Primary documented in this encounter Care Teams Stogie Packer Relationship Specialty Start Date End Date Mary Kay Lr APRN, ENTRY PROCESSOR PCP - General Nurse Practitioner 12/01/17 04/23/21 [address] [place] [address] documented as of this encounter
--- OUTSIDE RECORDS SUMMARY | 2021-11-06 20:39 | XMS_ITS | Encounter Summary ---
:1975 Author Organization [facility] Address [address] [place] [address] Care Team Providers Name Role Phone Deepjordan Mary Kay Pitt APRN, ADVISER SALES Primary Care Provider [phone] Reason for Visit Reason Comments Patient Preference Scheduling Encounter Details Date Type Department Care Team Description 04/03/2020 Telephone [facility] Jessenia Solomon Patient Preference [facility] Geremias Bartholomew MD Scheduling [address] [address] [phone] Social History Tobacco Use Types Packs/Day Years Used Date Smoking Tobacco: Never Smokeless Tobacco: Never Alcohol Use Standard Drinks/Week Comments Yes 7 (1 standard drink = 0.6 oz pure alcoho l) Alcohol Habits Answer Date Recorded How often do you have a drink containing 4 or more times a w [place] 02/01/2020 alcohol? How many drinks containing alcohol do you have Not asked on a typical day when you are drinking? How often do you have six or more drinks on one Not asked occasion? Comment: Not asked Sex Assigned at Date Recorded Not on file documented as of this encounter Nursing Notes Luke Paz - 04/13/2020 12:53 PM CST Prior authorization has been approved for Pegfilgrastim-bmez 6 MG/0.6ML SOSY through [employer] insurance. Approval is granted from 04/11/2020 through 10/12/2020. Luke Paz 04/13/2020, 12:54 PM E LAYOUT MARKER Adri Morris - 04/03/2020 8:43 AM CST Contacted patient - appointments scheduled. E LAYOUT MARKER Jessica Cano MD - 04/03/2020 8:14 AM CST Spoke with patient regarding transferring her care to the [place] location per her request. Please schedule her for toxicity check (can be in person or video) for this with Lori Ramos. Please schedule her for next cycle taxotere and cytoxan chemotherapy April 17 with labs (lab draw) and visit with me. Thanks, Yudy Cano MD Hematology/Oncology [facility] E LAYOUT MARKER documented in this encounter Plan of Treatment Not on filedocumented as of this encounter Visit Diagnoses Not on filedocumented in this encounter Care Teams Bird Trapper Relationship Specialty Start Date End Date Mary Kay Lr, WHISKEY REGAUGER, ADVISER SALES PCP - General Nurse Practitioner 12/01/17 04/23/21 [address] [place] [address] documented as of this encounter
--- OUTSIDE RECORDS SUMMARY | 2021-11-06 20:39 | XMS_ITS | Encounter Summary ---
:1975 Author Organization [facility] Address [address] [address] Care Team Providers Name Role Phone Mary Kay Lr APRN, PHARMACOLOGY TEACHER Primary Care Provider [phone] Reason for Referral Procedure/Equipment (Routine) - Closed Specialty Diagnoses / Procedures Referred By Contact Refer red To Contact Diagnoses Invasive lobular carcinoma of right breast, stage 1 (HRC) Helen Martinez MD Procedures [address] [address] Referral ID Status Reason Start Date Expiration Date Visits Requ ested Visits Authorized [id number] Closed 03/26/2020 06/25/2021 1 1 F BUSINESS OFFICER Reason for Visit Reason Comments Orders Needed Encounter Details Date Type Department Care Team Description 03/26/2020 Telephone [facility] Helen Hurst MD Orders Needed at [address] [place] [address] [phone] Social History Tobacco Use Types Packs/Day Years Used Date Smoking Tobacco: Never Smokeless Tobacco: Never Alcohol Use Standard Drinks/Week Comments Yes 7 (1 standard drink = 0.6 oz pure alcoho l) Alcohol Habits Answer Date Recorded How often do you have a drink containing 4 or more times a w [place] 02/01/2020 alcohol? How many drinks containing alcohol do you have Not asked on a typical day when you are drinking? How often do you have six or more drinks on one Not asked occasion? Comment: Not asked Sex Assigned at Date Recorded Not on file documented as of this encounter Nursing Notes Ann Mcgraw RN - 03/27/2020 8:[address] Martinez placed order on 03/26, called pt to let her know. Ann Mcgraw RN 03/27/2020, 8:19 AM F BUSINESS OFFICER Carlton Knight - 03/26/2020 10:04 AM CST Patient requesting a order for a wig. Patient starts treatment this week. Carlton Knight 03/26/2020, 10:04 AM F BUSINESS OFFICER documented in this encounter Plan of Treatment Not on filedocumented as of this encounter Visit Diagnoses Diagnosis Invasive lobular carcinoma of right [address] st, stage 1 (HRC) - Primary documented in this encounter Care Teams Sales And Distribution Clerk Relationship Specialty Start Date End Date Mary Kay Lr, CHILDCARE PROVIDER, PHARMACOLOGY TEACHER PCP - General Nurse Practitioner 12/01/17 04/23/21 [address] [place] [address] documented as of this encounter
--- OUTSIDE RECORDS SUMMARY | 2021-11-06 20:39 | XMS_ITS | Encounter Summary ---
:1975 Author Organization [facility] Address [address] [place] [address] Care Team Providers Name Role Phone Mary Kay Lr APRN, RIG SUPERINTENDENT Primary Care Provider [phone] Encounter Details Date Type Department Care Team Description 04/11/2020 Lab Visit [facility] Laboratory Dysuria [address] [place] [address] Social History Tobacco Use Types Packs/Day Years Used Date Smoking Tobacco: Never Smokeless Tobacco: Never Alcohol Use Standard Drinks/Week Comments Yes 7 (1 standard drink = 0.6 oz pure alcoho l) Alcohol Habits Answer Date Recorded How often do you have a drink containing 4 or more times a w [place] 02/01/2020 alcohol? How many drinks containing alcohol [...] Name Priority Date/Time Associated Diagnosis Comme nts URINE CULTURE Routine 04/11/2020 12:44 PM Dysuria Results for this CELL POURER procedure are i n the results section. UA CONDITIONAL UC Routine 04/11/2020 12:44 PM Dysuria Res ults for this CELL POURER procedure are i n the results section. documented in this encounter Results (ABNORMAL) Urine Culture (04/11/2020 12:44 PM CELL POURER) [facility] Method Time Signature Urine Culture Growth (A) 04/12/2020 [place] 2:35 PM CELL POURER HOSPITAL Urine Culture <10,000 CFU/mL 04/12/2020 [facility] Multiple 2:35 PM [facility]LL [facility] Bacterial Morphotypes Specimen Anatomical Collection Method Collection Time Receive d Time (Source) Location / / Volume Laterality Urine URINE SPECIMEN Non-blood 04/11/2020 12:44 COLLECTION, CLEAN Collection / PM CELL POURER 12:[address] CATCH / Unknown Unknown Jessica Cano MD LAB_1 Performing Organization Address City/State/[place] [address] (ABNORMAL) UA Conditional UC (04/11/2020 12:44 PM CELL POURER) [facility] Method Time Signature Urine Culture Urinalysis 04/11/2020 [place] Comment results do 2:02 PM CELL POURER LABORATORY not meet criteria for urine culture reflex. Urine Color Straw Straw-Yello 04/11/2020 [place] w 2:02 PM CELL POURER LABORATORY Urine Clarity Clear Clear 04/11/2020 [place] 2:02 PM CELL POURER LABORATORY Specific 1.010 1.005 - 04/11/2020 [place], Urine 1.030 2:02 PM CELL POURER LABORATORY PH Urine 7.5 5.0 - 8.0 04/11/2020 [place] 2:02 PM CELL POURER LABORATORY Protein, Urine Negative Neg/Trace 04/11/2020 [place] Qual (mg/dL) 2:02 PM CELL POURER LABORATORY Glucose Urine Negative Negative 04/11/2020 [place] Qual (mg/dL) 2:02 PM CELL POURER LABORATORY Ketones, Urine Negative Negative 04/11/2020 [place] (mg/dL) 2:02 PM CELL POURER LABORATORY Urobilinogen, 0.2 <2.0 04/11/2020 [place] Urine (EU/dL) 2:02 PM CELL POURER LABORATORY Bilirubin Negative Negative 04/11/2020 [place] Urine 2:02 PM CELL POURER LABORATORY Blood, Urine Negative Neg/Trace 04/11/2020 [place] 2:02 PM CELL POURER LABORATORY Nitrite Urine Negative Negative 04/11/2020 [place] 2:02 PM CELL POURER LABORATORY Leukocyte Est. Negative Negative 04/11/2020 [place] 2:02 PM CELL POURER LABORATORY Red Blood 0-3 0 - 3 /HPF 04/11/2020 [place] Cells 2:02 PM CELL POURER LABORATORY White Blood 0-5 0 - 5 /HPF 04/11/2020 [place] Cells 2:02 PM CELL POURER LABORATORY Bacteria Occasional None Seen 04/11/2020 [place] (A) /HPF 2:02 PM CELL POURER LABORATORY Squamous Moderate (A) None Seen, 04/11/2020 [place] Epithelial Occasional, 2:02 PM CELL POURER LABORATORY Cells Few /HPF Urine Source Clean Catch 04/11/2020 [place] 2:02 PM CELL POURER LABORATORY Specimen Anatomical Collection Method Collection Time Receive d Time (Source) Location / / Volume Laterality Urine URINE SPECIMEN Non-blood 04/11/2020 12:44 COLLECTION, CLEAN Collection / PM CELL POURER 12:[address] CATCH / Unknown Unknown Lori Ramos APRN, RIG SUPERINTENDENT LAB_1 Performing Organization Address City/State/ZIP Code Phon e Number [facility] [address] [place] [address] documented in this encounter Visit Diagnoses Diagnosis Dysuria documented in this encounter Care Teams Home Care Manager Relationship Specialty Start Date End Date Mary Kay Lr, SIDE LASTER, RIG SUPERINTENDENT PCP - General Nurse Practitioner 12/01/17 04/23/21 [address] [place] [address] documented as of this encounter
--- OUTSIDE RECORDS SUMMARY | 2021-11-06 20:39 | XMS_ITS | Encounter Summary ---
:1975 Author Organization [facility] Address [address], [place] [address] Care Team Providers Name Role Phone Mary Kay Lr APRN, RISK DEVELOPER Primary Care Provider [phone] Encounter Details Date Type Department Care Team Description 04/17/2020 Lab Visit [facility] Invasive lobular carcinoma o f right breast, stage 1 (HRC); [address] Malignant neoplasm of overla pping sites of right breast in female, estrogen receptor positive (HRC) [place] [address] Social History Tobacco Use Types Packs/Day Years Used Date Smoking Tobacco: Never Smokeless Tobacco: Never Alcohol Use Standard Drinks/Week Comments Yes 7 (1 standard drink = 0.6 oz pure alcoho l) Alcohol Habits Answer Date Recorded How often do you have a drink containing 4 or more times a w [place] 02/01/2020 alcohol? How many drinks containing alcohol do you have Not asked on a typical day when you are drinking? How often do you have six or more drinks on one Not asked occasion? Comment: Not asked Sex Assigned at Date Recorded Not on file documented as of this encounter Progress Notes Ann Mcgraw RN - 04/17/2020 7:[address] Cano at [facility]. Ann Mcgraw RN 04/17/2020, 10:37 AM FINISHER documented in this encounter Plan of Treatment Not on filedocumented as of this encounter Procedures Procedure Name Priority Date/Time Associated Diagnosis Comme nts CBC AND DIFFERENTIAL STAT 04/17/2020 7:46 AM Invasive lobul ar Results for this PANEL BOAT FINISHER carcinoma of right procedure are in breast, stage 1 the results (HRC) section. Malignant neoplasm of overlapping sites of right breast in female, estrogen receptor positive (HRC) COMPLETE BLOOD STAT 04/17/2020 7:46 AM Invasive lobular Res ults for this COUNT-W/DIFF BOAT FINISHER carcinoma of right procedure are in breast, stage 1 the results (HRC) section. Malignant neoplasm of overlapping sites of right breast in female, estrogen receptor positive (HRC) LIVER PANEL(HEPATIC STAT 04/17/2020 7:46 AM Invasive lobula r Results for this FUNCTION PANEL) BOAT FINISHER carcinoma of right proced ure are in breast, stage 1 the results (HRC) section. Malignant neoplasm of overlapping sites of right breast in female, estrogen receptor positive (HRC) BASIC METABOLIC PANEL STAT 04/17/2020 7:46 AM Invasive lobu lar Results for this BOAT FINISHER carcinoma of right procedure are in breast, stage 1 the results (HRC) section. Malignant neoplasm of overlapping sites of right breast in female, estrogen receptor positive (HRC) documented in this encounter Results (ABNORMAL) Complete Blood Count-W/Diff (04/17/2020 7:46 AM BOAT FINISHER) [facility] gist Method Time Signature WBC 8.3 3.5 - 10.5 04/17/2020 [place] x10(9)/L 8:21 AM BOAT FINISHER LABORATORY RBC 4.14 3.90 - 04/17/2020 [place] 5.03 8:21 AM BOAT FINISHER LABORATORY x10(12)/L Hemoglobin 11.9 (L) 12.0 - 04/17/2020 [place] 15.5 g/dL 8:21 AM BOAT FINISHER LABORATORY HCT 37.0 34.9 - 04/17/2020 [place] 44.5 % 8:21 AM BOAT FINISHER LABORATORY MCV 89.4 80.0 - 04/17/2020 [place] 100.0 fL 8:21 AM BOAT FINISHER LABORATORY MCH 28.7 27.6 - 04/17/2020 [place] 33.3 pg 8:21 AM BOAT FINISHER LABORATORY MCHC 32.2 31.5 - 04/17/2020 [place] 35.2 g/dL 8:21 AM BOAT FINISHER LABORATORY RDW 13.4 11.9 - 04/17/2020 [place] 15.5 % 8:21 AM BOAT FINISHER LABORATORY Platelets 317 150 - 450 04/17/2020 [place] x10(9)/L 8:21 AM BOAT FINISHER LABORATORY Automated NRBC 0 <=0 /100 04/17/2020 [place] WBC 8:21 AM BOAT FINISHER LABORATORY Neutrophil 7.2 (H) 1.7 - 7.0 04/17/2020 [place] Absolute 10(9)/L 8:21 AM BOAT FINISHER LABORATORY Lymphocyte 0.8 (L) 1.0 - 4.8 04/17/2020 [place] Absolute 10(9)/L 8:21 AM BOAT FINISHER LABORATORY Monocytes 0.3 0.2 - 0.9 04/17/2020 [place] Absolute 10(9)/L 8:21 AM BOAT FINISHER LABORATORY Eosinophil 0.0 0.0 - 0.5 04/17/2020 [place] Absolute 10(9)/L 8:21 AM BOAT FINISHER LABORATORY Basophil 0.0 0.0 - 0.3 04/17/2020 [place] Absolute 10(9)/L 8:21 AM BOAT FINISHER LABORATORY Immature Gran % 1.1 (H) 0.0 - 0.5 04/17/2020 [place] % 8:21 AM BOAT FINISHER LABORATORY Specimen Anatomical Collection Method / Collection Time Recei bruno Time (Source) Location / Volume Laterality Blood Venipuncture / 04/17/2020 7:46 04/17/2020 7:46 Unknown AM BOAT FINISHER AM BOAT FINISHER Helen Martinez MD LAB_1 Performing Organization Address City/State/ZIP Code Phon e Number [facility] [address] [place] [address] LIVER PANEL(HEPATIC FUNCTION PANEL) (04/17/2020 7:46 AM BOAT FINISHER) P athologist Signature Alkaline 87 40 - 150 04/17/2020 [place] Phosphatase U/L 10:03 AM BOAT FINISHER LABORATORY Bilirubin, Total 0.3 0.2 - 1.2 04/17/2020 [place] mg/dL 10:03 AM BOAT FINISHER LABORATORY Bilirubin, 0.1 0.0 - 0.5 04/17/2020 [place] Direct mg/dL 10:03 AM BOAT FINISHER LABORATORY AST (SGOT) 19 10 - 40 04/17/2020 [place] U/L 10:03 AM BOAT FINISHER LABORATORY ALT (SGPT) 37 0 - 55 U/L 04/17/2020 [place] 10:03 AM BOAT FINISHER LABORATORY Protein, Total 7.1 6.4 - 8.3 04/17/2020 [place] g/dL 10:03 AM BOAT FINISHER LABORAT[facility] Albumin 4.0 3.5 - 5.0 04/17/2020 [place] g/dL 10:03 AM BOAT FINISHER LABORATORY Specimen Anatomical Collection Method / Collection Time Recei bruno Time (Source) Location / Volume Laterality Blood Venipuncture / 04/17/2020 7:46 04/17/2020 7:46 Unknown AM BOAT FINISHER AM BOAT FINISHER Helen Martinez MD LAB_1 Performing Organization Address City/State/ZIP Code Phon e Number [facility] [address] [place] [address] (ABNORMAL) BASIC METABOLIC PANEL (04/17/2020 7:46 AM BOAT FINISHER) Analysis Performed At Patho logist Time Signature Sodium 138 136 - 145 04/17/2020 [place] mmol/L 10:03 AM [facility] Potassium 3.9 3.5 - 5.1 04/17/2020 [place] mmol/L 10:03 AM BOAT FINISHER LABORATORY Chloride 104 98 - 109 04/17/2020 [place] mmol/L 10:03 AM [facility] CO2 24 20 - 29 04/17/2020 [place] mmol/L 10:03 AM BOAT FINISHER LABORAT[facility] Anion Gap 10 7 - 16 04/17/2020 [place] mmol/L 10:03 AM BOAT FINISHER LAB[facility] Calcium 9.2 8.4 - 10.4 04/17/2020 [place] mg/dL 10:03 AM BOAT FINISHER LAB[facility] BUN 12 7 - 26 04/17/2020 [place] mg/dL 10:03 AM BOAT FINISHER LABOR[facility] Creatinine 0.60 0.55 - 04/17/2020 [place] 1.02 mg/dL 10:03 AM BOAT FINISHER LABORATORY GFR, Estimated >60 >60 04/17/2020 [place] mL/min/1.7 10:03 AM BOAT FINISHER LABORATORY 3m2 Glucose 150 (H) 70 - 100 04/17/2020 [place] mg/dL 10:03 AM BOAT FINISHER LABORATORY Comment: The given reference range is fo r the fasting state. Non-fasting reference range for glucose is 70 - 180 mg/dL. Hours Fasting 0 04/17/2020 10:03 AM BOAT FINISHER [facility] Specimen Anatomical Collection Method / Collection Time Recei bruno Time (Source) Location / Volume Laterality Blood Venipuncture / 04/17/2020 7:46 04/17/2020 7:46 Unknown AM BOAT FINISHER AM BOAT FINISHER Helen Martinez MD LAB_1 Performing Organization Address City/State/ZIP Code Phon e Number [facility] [address] [place] [address] documented in this encounter Visit Diagnoses Diagnosis Invasive lobular carcinoma of right gala st, stage 1 (HRC) Malignant neoplasm of overlapping sites of right breast in female, estrogen receptor positive (HRC) documented in this encounter Care Teams Market Development Specialist Relationship Specialty Start Date End Date Mary Kay Lr APRN, RISK DEVELOPER PCP - General Nurse Practitioner 12/01/17 04/23/21 [address] [place] [address] documented as of this encounter
--- OUTSIDE RECORDS SUMMARY | 2021-11-06 20:39 | XMS_ITS | Encounter Summary ---
:1975 Author Organization [facility] Address [address], [place] [address] Care Team Providers Name Role Phone Mary Kay Lr APRN, FACTORY ASSEMBLER Primary Care Provider [phone] Encounter Details Date Type Department Care Team Description 03/29/2020 Office Visit [facility] Cancer Invasi ve lobular carcinoma of right breast, stage 1 (HRC) (Primary Dx); Center at [facility] alignant neoplasm of overlapping sites of right breast in female, estrogen receptor positive (HRC) [facility] [address] [place] [address] Social History Tobacco Use Types Packs/Day Years Used Date Smoking Tobacco: Never Smokeless Tobacco: Never Alcohol Use Standard Drinks/Week Comments Yes 7 (1 standard drink = 0.6 oz pure alcoho l) Alcohol Habits Answer Date Recorded How often do you have a drink containing 4 or more times a w [place] 02/01/2020 alcohol? How many drinks containing alcohol do you have Not asked on a typical day when you are drinking? How often do you have six or more drinks on one Not asked occasion? Comment: Not asked Sex Assigned at Date Recorded Not on file documented as of this encounter Last Filed Vital Signs Vital Sign Reading Time Taken Comments Blood Pressure 136/87 03/29/2020 12:20 PM RESEARCH NEUROPSYCHOLOGIST Pulse 77 03/29/2020 12:20 PM RESEARCH NEUROPSYCHOLOGIST Temperature 36.9 ??C (98.5 ??F) 03/29/2020 12:20 PM RESEARCH NEUROPSYCHOLOGIST Respiratory Rate 16 03/29/2020 12:20 PM RESEARCH NEUROPSYCHOLOGIST Oxygen Saturation 100% 03/29/2020 12:20 PM RESEARCH NEUROPSYCHOLOGIST Inhaled Oxygen Concentration - - Weight - - Height - - Body Mass Index - - documented in this encounter Patient Instructions Patient InstructionsKat Duncan RN - 03/29/2020 9:00 AM CST Cristiana Castillo, ?? It was nice to see you in clinic today! ?? Your treatment plan is as follows: Taxotere (docetaxel) + Cytoxan (cyclophosphamide) Day 1, NeulastaDay 2, given every 3 weeks ?? Today, we will proceed with cycle #1 of Taxotere and Cytoxan in the infusion center. ?? Neulasta tomorrow - either home injection or here at [facility] (waiting to hear about insurance coverage) ?? Video visit with me in about a week for toxicity check. ?? Return to the clinic in 3 weeks ( or appt) to see Dr. Martinez or me for cycle #2 chemotherapywith labs (CBC, BMP, LFTs). ?? HOME INSTRUCTIONS: ?? Medications: -As part of your chemotherapy regimen: -Dexamethasone: Take 8mg (2 tablets) twice daily the day before, day of, and day after chemotherapy For today: take 2 tablets this evening, 2 tablets tomorrow morning, and 2 tablets tomorrow evening ?? -For nausea/vomiting: On a scheduled basis: ondansetron (Zofran) 8mg (1 tablet) every 8 hours for 2 days after chemotherapy, then every 8 hours as needed. ?? If you have breakthrough nausea/vomiting despite taking this: 1. Try first: prochlorperazine (Compazine) 10mg (1 tablet) every 6 hours as needed. 2. Try second: lorazepam (Ativan) 0.5mg (1 tablet) every 6 hours as needed. ?? If they do not help, call the clinic or the nurse care line (after hours/weekends) for instructions.??Keep small amounts of food in the stomach regularly and this will prevent nausea as well. Non-medication strategies for nausea include: marvin (tea, lozenges, marvin cristopher), essential oils (peppermint, lavender), and SeaBands wrist bands. ?? -For body aches/pains related to the Neulasta injection (white blood cell boosting shot): Try loratidine (Claritin) 10mg daily (can take twice daily for 2-3 days if needed). OK to use Tylenol ivwy-qjo-rehmhdu for pain, maximum of 4000mg per day. ?? Additional suggestions for general wellness and symptom management during treatment: ?? 1.??Sleep: ??Good sleep habits are important to ensure you are getting enough sleep. ??Try to keep astable sleep/wake cycle. ??Limit naps to less than 1 hour during the day. OK to take melatonin djem-cqv-fhqumhc as needed for sleep (maximum dose = 10mg). Benadryl is also OK to use for sleep (maximum dose = 50mg). ?? 2. Exercise: ??Regular exercise has been shown to help improve energy levels and overall tolerance to chemotherapy. I recommend 30 minutes of fxlk-ub-yoxyvtkz intensity exercise roughly 5 days per week- this could be a 30-minute walk, an exercise video from the Internet, yoga, riding a bike, or whatever type of exercise you enjoy doing. ?? 3. Diet: ??Try to focus on a high protein and well-balanced diet. ??Eat fruits and vegetables. ??Tryto get 6 smaller meals in a day versus just 3 larger meals a day as this can help control nausea, appetite changes, and feeling like you are getting full early. Use meal supplements like Boost or Ensure if you are having trouble eating. You may notice a change in your taste of foods. ??If this occurs,keep trying foods to find what tastes good. ??Also, if you get a metallic taste to your foods, use plastic silverware. We do have dietitians available, if you would like to meet with one of them just let us know and we can get you set up for an appointment. ?? 4.??Meditation: This can be helpful in managing several symptoms, including but not limited to anxiety, insomnia, mood changes, nausea, and pain. There is a free smart phone selvin called Fly Fishing Hunter Timer that you can try. Other options for apps are Calm and Headspace. You may also find resources on YouTubeor at your local library. ?? 5. Diarrhea: ??If you develop diarrhea, take Imodium 2 tablets by mouth after the first loose stool,then 1 tablet by mouth after each subsequent loose stool until the diarrhea stops. ??Do not take more than 8 tablets in a 24 hour period. If it becomes persistent, severe or bloody, or if you develop fevers, please call the clinic. ?? 6. Constipation: ??If you develop constipation,??Use Senna, 1 tablet in the morning and 1 tablet in the evening. ??If constipation continues, you can increase your dose, do not take more than 6 tabletsper day. ??If you get soft stools, reduce the number of tablets you are taking. ??If the 6 tablets aday isn't working, try MiraLax daily (see package instructions - typically 1 capful of powder mixed into at least 8oz of fluid). It is important to drink plenty of fluids if you are taking Miralax. Call if you continue to have problems. ?? 7. Mouth sores: ??To prevent and treat mouth sores, you can use baking soda/salt water gargles 5-6 times a day. ??Mix 1/4 tsp of table salt and 1/4-1/2 teaspoon of baking soda in 8 ounces of water. If mouth sores are painful, please call us and we can prescribe something called Magic Mouthwash to help with the pain. ?? 8. Heartburn: ??Heartburn can be a problem with chemotherapy. Avoid spicy, fatty or fried foods if possible. ??If needed, we may need to start you on a medication for heartburn (Pepcid (famotidine) eniq-ebe-ughhhku twice per day, Prilosec jzsm-wfh-scvggjp once per day). ?? 9. Fever: It is very important that you call us if you develop a fever (temperature of 100.4F or higher). ? Call with any questions or concerns. The clinic phone number is [phone] (8- 4:30). After hours, please call the nurse care line at [phone]. ?? All the best, ?? Cheryl Dean PA-C ?? Appointments scheduled AVS to be given in infusion RH 03/29/2020, 10:03 AM ?? ARCH NEUROPSYCHOLOGIST documented in this encounter Progress Notes Kat Duncan RN - 03/29/2020 9:00 AM CST Patient is here for OP labs, provider visit and C1D1 Taxotere/Cytoxan. Patient is managed by Dr [facility]. Education was completed prior to starting infusion and questions/concerns were addressed. Labs are appropriate for treatment today. Patient had a hypersensitivity reaction to Docetaxol. See Reaction Note for Details. After rescue meds were given, patient tolerated the remainder of Taxotere/Cytoxan Infusion. Pt reports the following chemo related side effects: See Provider Notes Falls Assessment. (Hospital only) Criteria for Falls Assessment: 1. Impaired judgement due to medication or disease. 2. Muscle weakness. 3. History of falls. 4. Other risks such as hypotension, seizures, etc. Does patient meet criteria? no. The following identifiers were confirmed and electronically signed by two independent Registered Nurses prior to all Chemotherapy/Immunotherapy/Targeted- therapy Rx administrations today. ??? Rx name ??? Rx dose ??? Infusion/Rx volume ??? Rate of Rx administration ??? Route of Rx administration ??? Rx expiration dates/times ??? Appearance and physical integrity of the Rx ??? Rate set on infusion pump Per self-report, patient is able to perform all normal daily activities required to meet basic needs, fulfill usual roles, and maintain their health and well-being. Teaching needs? Education was completed prior to starting infusion and questions/concerns were addressed. Discussed plan of care for the day and patient states understanding. Updated AVS was given to the patient. PLAN RTC 03/30/20 [facility] 04/18/20 for OP Labs/IV Start, provider visit and C2D1 Taxotere/Cytoxan Kat Duncan RN 03/29/2020, 4:22 PM ARCH NEUROPSYCHOLOGIST Kat Duncan RN - 03/29/2020 9:00 AM CST Critical Event Summary Chemotherapy being given at time of event: Docetaxol Time chemotherapy was started: 1137 Amount of drug infused: 10mg Rate at which drug was being infused: 265 Pre-meds given: Dexamethasone And Zofran Patient???s reaction: Flushing and Back pain, abdominal pain or cramping Provider notified: Oleg Pharmacist at time of 1145 Intervention: Benadryl 50mg slow IVP and Pepcid 20mg IV Intervention meds were given at 1148 Warm blanket applied to lower back to relieve discomfort PRODUCTION QUALITY MANAGER or code team called: No VS during event and post event: Patient Vitals for the past 8 hrs: BP Temp Temp src Pulse Resp SpO2 03/29/20 1220 136/87 98.5 ??F (36.9 ??C) Tympanic 77 16 100 % 03/29/20 1205 130/87 98.2 ??F (36.8 ??C) -- 76 16 100 % 03/29/20 1153 127/86 -- -- 82 16 -- 03/29/20 1149 (!) 141/95 -- -- 88 16 -- 03/29/20 1148 (!) 145/96 97.6 ??F (36.4 ??C) Tympanic (!) 111 16 -- Disposition of patient: Patient recovered completely after hydrating for 30 min and restarted infusion at half the rate 130ml/hour. Pt completed Taxotere infusion without further incidence. Kat Duncan RN 03/29/2020, 4:23 PM ARCH NEUROPSYCHOLOGIST documented in this encounter Plan of Treatment [...] Dose Rate Site cyclophosphamide (CYTOXAN) 1,000 Started 03/29/2020 1:53 PM RESEARCH NEUROPSYCHOLOGIST 1, 000 mg mg in sodium chloride 0.9 % 500 mL infusion 1,000 mg, Intravenous, Administer over 0.5 Hours, ONCE, On Sangeeta 03/29/20 at 1130, For 1 dose, 600 mg/m2 x 1.67 m2 = 1002 mg rounded to 1000 mg per 5% rounding protocol WARNING: This medication MUST be administered by oncology staff. This medication is a HIGH RISK/HIGH ALERT medication. Hazardous waste disposal required. Administration: Double glove, chemo gown; if no closed-system drug-transfer device (CSTD), include eye protection dexamethasone (DECADRON) tablet 12 mg Given 03/29/2020 10:50 AM RESEARCH NEUROPSYCHOLOGIST 12 mg 12 mg, Oral, ONCE, On Sangeeta 03/29/20 at 1000, For 1 dose, Give 30-60 minutes prior to chemotherapy as pre-med. May be given IV diphenhydrAMINE (BENADRYL) injection 50 mg Given 03/29/2020 11:48 AM RESEARCH NEUROPSYCHOLOGIST 50 mg 50 mg, Intravenous, PRN PER PARAMETERS, Anaphylactic Reaction, mild to severe hypersensitivity reaction, Starting on Sangeeta 03/29/20 at 0940, Until Sangeeta 03/29/20 at 1823, For 1 day, Stop infusion. Maintain free-flowing IV fluids. Administer diphenhydramine 50mg IV push over 5 minutes. Assess vital signs at least every 15 minutes. Restart infusion at 50% of original infusion rate after resolution of symptoms. Notify MD for additional orders for unresolved symptoms. DOCEtaxel (TAXOTERE) 120 mg in sodium Restarted 03/29/2020 12:26 PM RESEARCH NEUROPSYCHOLOGIST chloride 0.9 % 250 mL chemo infusion 120 mg, Intravenous, Administer over 1 Hours, ONCE, On Sangeeta 03/29/20 at 1030, For 1 dose, 75mg/m2 x [...] closed-system drug-transfer device (CSTD), include eye protection Started 03/29/2020 11:37 AM RESEARCH NEUROPSYCHOLOGIST 120 mg famotidine (PEPCID) 20 mg in 0.9% sodium Started 03/29/2020 11:49 AM RESEARCH NEUROPSYCHOLOGIST 20 mg chloride 50mL IVPB 20 mg, Intravenous, Administer over 15 Minutes, PRN PER PARAMETERS, mild to severe hypersensitivity reaction, Starting on Sangeeta 03/29/20 at 0940, For 1 dose ondansetron (ZOFRAN) tablet 16 mg Given 03/29/2020 10:50 AM RESEARCH NEUROPSYCHOLOGIST 16 mg 16 mg, Oral, ONCE, On Sangeeta 03/29/20 at 1000, For 1 dose, Give 30-60 minutes prior to chemotherapy as pre-med. May be given IV sodium chloride 0.9% infusion Started 03/29/2020 10:45 AM RESEARCH NEUROPSYCHOLOGIST 500 mL 20 mL/hr 500 mL, Intravenous, at 20 mL/hr, ONCE, On Sangeeta 03/29/20 at 1000, For 1 dose documented in this encounter Care Teams Gaming Table Operator Relationship Specialty Start Date End Date Mary Kay Lr, COPPER TAPPER, FACTORY ASSEMBLER PCP - General Nurse Practitioner 12/01/17 04/23/21 [address] [place] [address] documented as of this encounter
--- OUTSIDE RECORDS SUMMARY | 2021-11-06 20:39 | XMS_ITS | Encounter Summary ---
:1975 Author Organization [facility] Address [address] [place] [address] Care Team Providers Name Role Phone Deepjordna Mary Kay Pitt PICK PULLING MACHINE TENDER, JOY LOADING MACHINE OPERATOR Primary Care Provider [phone] Reason for Visit Reason Onset Date Comments Refill 04/13/2020 Encounter Details Date Type Department Care Team Description 04/13/2020 Refill [facility] Helen Hurst MD Refill at [id number] [place] [address] [phone] Social History Tobacco Use Types Packs/Day Years Used Date Smoking Tobacco: Never Smokeless Tobacco: Never Alcohol Use Standard Drinks/Week Comments Yes 7 (1 standard drink = 0.6 oz pure alcoho l) Alcohol Habits Answer Date Recorded How often do you have a drink containing 4 or more times a w [place] 02/01/2020 alcohol? How many drinks containing alcohol do you have Not asked on a typical day when you are drinking? How often do you have six or more drinks on one Not asked occasion? Comment: Not asked Sex Assigned at Date Recorded Not on file documented as of this encounter Nursing Notes Carlos Manuel Holley, PharmD - 04/13/2020 2:12 PM CST Script needs to be sent to [facility] . Please review and sign if appropriate. Thank you! Carlos Manuel Teran, CindyD 04/13/2020, 2:12 PM CAL COLLECTIONS SPECIALIST documented in this encounter Plan of Treatment Not on filedocumented as of this encounter Visit Diagnoses Diagnosis Invasive lobular carcinoma of right gala st, stage 1 (HRC) Malignant neoplasm of overlapping sites of right breast in female, estrogen receptor positive (HRC) documented in this encounter Care Teams Slat Basket Top Maker Relationship Specialty Start Date End Date Mary Kay Lr, PICK PULLING MACHINE TENDER, JOY LOADING MACHINE OPERATOR PCP - General Nurse Practitioner 12/01/17 04/23/21 [address] [place], [place] [id number] documented as of this encounter
--- OUTSIDE RECORDS SUMMARY | 2021-11-06 20:39 | XMS_ITS | Encounter Summary ---
:1975 Author [facility] Address [address] [place] [address] Care Team Providers Name Role Phone Mary Kay Lr APRN, PASTE UP ARTIST Primary Care Provider [phone] Encounter Details Date Type Department Care Team Description 03/27/2020 Lab Visit [facility] lobular carcinoma Laboratory of right breast, stage 1 [id number] [facility] ([facility]) [place] [address] Social History Tobacco Use Types Packs/Day Years Used Date Smoking Tobacco: Never Smokeless Tobacco: Never Alcohol Use Standard Drinks/Week Comments Yes 7 (1 standard drink = 0.6 oz pure alcoho l) Alcohol Habits Answer Date Recorded How often do you have a drink containing 4 or more times a w [place] 02/01/2020 alcohol? How many drinks containing [...] encounter Procedures Procedure Name Priority Date/Time Associated Comments Diagnosis 2019 NOVEL Routine 03/27/2020 10:38 Invasive lobular Results for this CORONAVIRUS AM SENIOR CLINICAL DATA COORDINATOR carcinoma of right procedure are in breast, stage 1 the results ([facility]) section. documented in this encounter Results 2019 Novel Coronavirus (COVID-19) (03/27/2020 10:38 AM SENIOR CLINICAL DATA COORDINATOR) [facility] Method Time Signature COVID-19 Not Not 03/27/2020 SKIN[facility] Interpretation Detected Detected 11:51 PM CENTRAL LAB SENIOR CLINICAL DATA COORDINATOR Specimen Anatomical Collection Method Collection Time Receive d Time (Source) Location / / Volume Laterality Swab (Source Non-blood 03/27/2020 10:38 03/27/2020 Required) Collection / AM SENIOR CLINICAL DATA COORDINATOR 10:50 AM SENIOR CLINICAL DATA COORDINATOR Unknown Narrative [facility] - 03/27/2020 11:51 PM SENIOR CLINICAL DATA COORDINATOR Test performed by Accordion Tuner Mediated Amplification. TMA has been shown to be equivalent to commercial real-time PCR t ests. This test has been authorized by the FDA under an Emergency Use Authorization (EUA) for use by authorized laboratories. Briana OSORIO, [facility] LAB_1 Performing Organization Address City/State/ZIP Code Phon e Number [facility] [address] [phone] documented in this encounter Visit Diagnoses Diagnosis Invasive lobular carcinoma of right gala st, stage 1 (HRC) documented in this encounter Care Teams Transport Engineer Relationship Specialty Start Date End Date Mary Kay Lr, ASSEMBLER DC FIELD RING, PASTE UP ARTIST PCP - General Nurse Practitioner 12/01/17 04/23/21 [address] [place] [address] documented as of this encounter
--- OUTSIDE RECORDS SUMMARY | 2021-11-06 20:39 | XMS_ITS | Encounter Summary ---
:[address] [facility] Address [address] [place] [address] Care Team Providers Name Role Phone Mary Kay Lr APRN, NAVAL ARCHITECT Primary Care Provider [phone] Reason for Visit Reason Comments QUESTIONS, GENERAL CHEMOTHERAPY Encounter Details Date Type Department Care Team Description 03/20/2020 Telephone [facility] Helen Martinez, QUESTIONS, GENERAL; Center at [address] [address] [phone] (Wo rk) Social History Tobacco Use Types Packs/Day Years Used Date Smoking Tobacco: Never Smokeless Tobacco: Never Alcohol Use Standard Drinks/Week Comments Yes 7 (1 standard drink = 0.6 oz pure alcoho l) Alcohol Habits Answer Date Recorded How often do you have a drink containing 4 or more times a w [place] 02/01/2020 alcohol? How many drinks containing alcohol do you have Not asked on a typical day when you are drinking? How often do you have six or more drinks on one Not asked occasion? Comment: Not asked Sex Assigned at Date Recorded Not on file documented as of this encounter Nursing Notes Ann Mcgraw RN - 03/26/2020 12:01 PM CST Called pt to let her know she has been ok'ed by surgery to start chemotherapy as scheduled on 03/29/20. Dr. Martinez placed DME/wig order and she will work with her insurance on where they will cover this. Ann Mcgraw RN 03/26/2020, 12:19 PM CRAFT ARTIST Helen Martinez MD - 03/26/2020 10:47 AM CST Received messages from Drs. Perez and Charles -- patient okay to proceed with chemo as scheduled from surgical standpoint. DME for wig ordered today. Thanks! Helen Martinez MD 03/26/20, 10:47 AM CRAFT ARTIST Ann Mcgraw RN - 03/21/2020 10:03 AM CST Scheduled for 03/29. Check plastic surgery recommendations on 03/26 to see if she is okay to start chemo. Ann Mcgraw RN 03/21/2020, 10:04 AM CRAFT ARTIST Ann Mcgraw RN - 03/20/2020 5:20 PM CST Called pt to clarify - she has decided to go forward with chemotherapy. She has an appointment with her plastic surgeon on Thursday, 03/26, at which time we will know whether, from the surgery standpoint,she is ready to start chemo. Explained how a 'typical' infusion day will work, with labs, provider visit and infusion. Encouragedwearing comfortable clothing and bringing something to do, like reading material, simple crafts or games, etc. Once we get closer to the time she will start chemo, we will send prescriptions for anti-nausea meds to her pharmacy ([facility] in [place]). Pt expressed understanding. In the meantime, will tentatively schedule her for chemo start next week (03/28 or 03/29), with labs, provider visit (PA if on 03/29) and infusion. If surgery thinks she needs more healing time, will reschedule at that time. Ann Mcgraw RN 03/20/2020, 5:42 PM CRAFT ARTIST Ann Mcgraw RN - 03/20/2020 5:19 PM CST ----- Message from Helen Martinez MD sent at 03/20/2020 3:26 PM FINE CRAFT ARTIST ----- Regarding: RE: Please advise scheduling Waiting to hear back from her surgeons re: whether she has had adequate wound healing hence why we have not yet given her a definitive date. Her chemo orders have been written to allow PA process to proceed. ----- Message ----- From: Paula Garcia Sent: 03/20/2020 3:15 PM FINE CRAFT ARTIST To: Juan Cervantes Care Team Subject: Please advise scheduling Please review AVS from 03/19/[address] Martinez and advise what patient should be scheduled for since she has decided to proceed with Chemotherapy. Paula Garcia 03/20/2020, 3:19 PM CRAFT ARTIST Mara Ibarra - 03/20/2020 10:48 AM CST Cristiana has decided to have Chemo Therapy. What will be the plan for the first infusion? Mara Ibarra 03/20/2020, 10:49 AM CRAFT ARTIST documented in this encounter Plan of Treatment Not on filedocumented as of this encounter Visit Diagnoses Not on filedocumented in this encounter Care Teams Airport Operations Officer Relationship Specialty Start Date End Date Mary Kay Lr, TAKE AWAY WORKER, NAVAL ARCHITECT PCP - General Nurse Practitioner 12/01/17 04/23/21 [address] [place] [address] documented as of this encounter
--- OUTSIDE RECORDS SUMMARY | 2021-11-06 20:39 | XMS_ITS | Encounter Summary ---
:1975 Author Organization [facility] Address [address], [place] [address] Care Team Providers Name Role Phone Kelli Lewis MD Primary Care Provider [phone] Encounter Details Date Type Department Care Team Description 03/29/2020 [facility], PharmD [address] [facility] [address] [place], [place] [address] Social History Tobacco Use Types Packs/Day Years Used Date Smoking Tobacco: Never Smokeless Tobacco: Never Alcohol Use Standard Drinks/Week Comments Yes 7 (1 standard drink = 0.6 oz pure alcoho l) Alcohol Habits Answer Date Recorded How often do you have a drink containing 4 or more times a w [place] 02/01/2020 alcohol? How many drinks containing alcohol [...] on filedocumented in this encounter Care Teams Heavy Equipment Diesel Mechanic Relationship Specialty Start Date End Date Kelli Lewis MD PCP - General Family Practice 04/24/21 [address] [facility] [place] [address] documented as of this encounter
--- OUTSIDE RECORDS SUMMARY | 2021-11-06 20:40 | XMS_ITS | Encounter Summary ---
:1975 Author Organization [employer] Address [address] [address] Care Team Providers Name Role Phone Mary Kay Lr APRN, SUPERVISOR OF COMMUNICATIONS Primary Care Provider [phone] Reason for Visit Auth/Cert Specialty Diagnoses / Procedures Referred By Contact Refer red To Contact Diagnoses Invasive lobular carcinoma of right breast, stage 1 (HRC) . Procedures RIGHT NIPPLE SPARING MASTECTOMY AND SENTINEL LYMPH NODE BIOPSY ON RIGHT RECONSTRUCTION BREAST WITH INSERTION IMPLANT Referral ID Status Reason Start Date Expiration Date Visits Requ ested Visits Authorized [id number] 1 1 Encounter Details Date Type Department Care Team Description 02/15/2020 Ancillary Procedure Regions Briana Fonseac In vasive lobular Medicine JO Ha, [facility] carcinoma of breast, [address] [facility] stage 1, right (HRC) [place] [address] [phone] Social History Tobacco Use Types Packs/Day Years Used Date Smoking Tobacco: Never Smokeless Tobacco: Never Alcohol Use Standard Drinks/Week Comments Yes 7 (1 standard drink = 0.6 oz pure alcoho l) Alcohol Habits Answer Date Recorded How often do you have a drink containing 4 or more times a w [place] 02/01/2020 alcohol? How many drinks containing alcohol [...] Procedure Name Priority Date/Time Associated Comments Diagnosis NM BREAST SENT NODE Routine 02/15/2020 8:42 AM Invasive lobula r Results for this INJ RT LYMPHOSEEK DAIRY EQUIPMENT SPECIALIST carcinoma of procedure are in breast, stage 1, the results right (HRC) section. documented in this encounter Results NM Breast Sent Node Inj Rt Lymphoseek (02/15/2020 8:42 AM DAIRY EQUIPMENT SPECIALIST) Anatomical Region Laterality Modality Breast Right Nuclear Medicine, Ul trasound Specimen (Source) Anatomical Location Collection Method / Collectio n Time Received Time / Laterality Volume Narrative 02/15/2020 9:34 AM DAIRY EQUIPMENT SPECIALIST INDICATION: ??Breast Carcinoma. Pre-operative identification of the right sentinel lymph node. PROCEDURE: ??Informed consent was obtain ed from the patient. ??The skin was prepped with chloraprep. ??0.535 millicu jessica of technetium 99M tilmanocept were injected subdermally along the uppe r outer aspect of the areolar margin. The patient tolerated this well. Briana OSORIO, [facility] RAD NM documented in this encounter Visit Diagnoses Diagnosis Invasive lobular carcinoma of breast, st age 3, right (HRC) documented in this encounter Administered Medications Inactive Administered Medications - up to 3 most recent administrations Medication Order MAR Action Action Date Dose Rate Site technetium TC-99M Given 02/15/2020 8:35 AM 0.535 millicuries tilmanocept (LYMPHOSEEK) DAIRY EQUIPMENT SPECIALIST injection 0.5 millicurie 0.5 millicurie, Intradermal, ONCE (NON-SCHEDULED), Starting on Thu02/15/20 at 0843, Until Thu02/15/20 at 0835, For 1 dose documented in this encounter Care Teams Gang Pusher Relationship Specialty Start Date End Date Mary Kay Lr, STRAP MAKER, SUPERVISOR OF COMMUNICATIONS PCP - General Nurse Practitioner 12/01/17 04/23/21 [address] [place], [place] [id number] documented as of this encounter
--- OUTSIDE RECORDS SUMMARY | 2021-11-06 20:40 | XMS_ITS | Encounter Summary ---
:1975 Author Organization [facility] Address [address], [place] [address] Care Team Providers Name Role Phone Mary Kay Lr APRN, APPRENTICE EMBALMER Primary Care Provider [phone] Reason for Visit Reason Comments Test Results Encounter Details Date Type Department Care Team Description 01/02/2020 Telephone [facility] Sy Irby, Test Results at [id number] [place] [address] [phone] (Wo rk) Social History Tobacco Use Types Packs/Day Years Used Date Smoking Tobacco: Never Smokeless Tobacco: Never Alcohol Use Standard Drinks/Week Comments Yes 7 (1 standard drink = 0.6 oz pure alcoho l) Alcohol Habits Answer Date Recorded How often do you have a drink containing 4 or more times a w [place] 02/01/2020 alcohol? How many drinks containing alcohol do you have Not asked on a typical day when you are drinking? How often do you have six or more drinks on one Not asked occasion? Comment: Not asked Sex Assigned at Date Recorded Not on file documented as of this encounter Nursing Notes Cynthia Irby, [facility] [place] 01/02/2020 11:35 AM CST GENETIC COUNSELING 01/02/2020 PURPOSE Disclose variant of uncertain significance (VUS) genetic test results. HISTORY OF PRESENT ILLNESS Ms. Castillo was counseled by me on 12/19 due to her personal diagnosis of breast cancer. At that visit, she elected to pursue the STAT Breast Cancer Panel through [employer] with reflex to the multi cancer panel with breast preliminary evidence genes. Both reports became available within minutes of each other. These results were communicated to the patient via a [employer] message . RESULT Genetic testing included sequence analysis and gross deletion/duplication analysis of 93 genes associated with hereditary cancer. Genes tested included: ABRAXAS1, AIP, AKT1, ALK, APC, MARGIE, AXIN2, BAP1, BARD1, BLM, BMPR1A, BRCA1, BRCA2, BRIP1, CASR, CDC73, CDH1, CDK4, CDKN1B, CDKN1C, CDKN2A (p14ARF), CDKN2A ([id number]), CEBPA, CHEK2, CTNNA1, DICER1, DIS3L2, EGFR, EPCAM*, FANCC, FANCM, FH, FLCN, GATA2, GPC3, GREM1*, HOXB13, HRAS, KIT, MAX, MEN1, MET, MITF*, MLH1, MRE11, MSH2, MSH3, MSH6, MUTYH, NBN, NF1, NF2, NTHL1, PALB2, PDGFRA,PHOX2B*, PIK3CA, PMS2, POLD1, POLE, POT1, EKWXV3Q, PTCH1, PTEN, RAD50, RAD51C, RAD51D, RB1, RECQL, RECQL4, RET, RINT1, RUNX1, SDHA*, SDHAF2, SDHB, SDHC, SDHD, SMAD4, SMARCA4, SMARCB1, SMARCE1, STK11, SUFU, TERC, TERT, MVKR942, TP53, TSC1, TSC2, VHL, WRN*, WT1, XRCC2 The test report can be found in the Media tab. No pathogenic variants were detected by this testing. The fact that no pathogenic variants were detected in the genes for which Ms. Castillo was tested is reassuring. However, the fact that a pathogenic variant was not identified does not eliminate the possibility that she and/or her family members have a hereditary susceptibility to cancer. Genetic testing has less than 100% sensitivity, meaning there is a small possibility that a pathogenic variant exists in one of the genes analyzed which cannot be identified by current testing methodologies. It is also possible that pathogenic variants in cancer susceptibility genes which have not yet been discovered may be contributing to her personal and/or family history of cancer. A variant of uncertain significance (VUS) is a change in the spelling of a gene for which the clinical implications are unknown. A VUS is a common finding on genetic testing. It could be a non-harmful change in the DNA (a benign variant) that has no clinical significance, or it could be a harmful change (a pathogenic variant) that causes an increased risk for certain types of cancer. A VUS cannot be used to make medical decisions because its significance is unknown. We do not test relatives clinically or change medical management based on a variant of uncertain significance. First degree relatives (i.e. parents, full siblings, and children) each have a 50% chance of sharing this variant. If the laboratory changes the interpretation of this particular genetic change, they will send our clinic a revised report and we will contact the patient with this information. A VUS was identified in the DIS3L2 gene, specifically named c.[id number]>A (p.[id number]). Individuals who have a known pathogenic variant in the DIS3L2 gene may have an increased risk for wilms tumor, a kidney cancer that typically occurs before age ten. These individuals are also a carrier of autosomal recessive Claudia syndrome. In order for someone to have Claudia syndrome they need to have a pathogenic variant in each of their two copies of the DIS3L2 gene. A VUS was identified in the POLE gene, specifically named c.6775C>T (p.[id number]). Individuals who have a known pathogenic variant in the POLE gene have an increased risk for colon polyps and coloncancer. These individuals are also a carrier of autosomal recessive BEN syndrome (facial dysmorphism, immunodeficiency, livedo, and short stature). In order for someone to have BEN syndrome they need to have a pathogenic variant in each of their two copies of the POLE gene. PERSONAL AND FAMILY SCREENING RECOMMENDATIONS Given that a hereditary susceptibility to breast cancer has not been identified by genetic testing, it is generally recommended to screen patients and their family members based on their personal and/or family histories of cancer. It is important for Ms. Castillo to continue to follow the breast cancer treatment and any future screening recommendations as provided by her physicians. Based on the patient's personal history of cancer, her close relatives remain at an elevated empiricrisk for breast cancer. The National Comprehensive Cancer Network recommends that women with a first- or second-degree relative diagnosed with breast cancer undergo breast cancer screening beginning 10years younger than the earliest age of a breast cancer diagnosis in the close family, but no later than age 40. Thus, women in this family should begin breast cancer screening at age 32. Screening may include breast self-examinations, clinical breast examinations, mammograms, and possibly breast MRIs,to be performed as directed by their physicians. These screening recommendations are based on national guidelines. Final screening recommendations should be deferred to the discretion of the managing physician. Other screening recommendations, such as those made by the [place] [employer], do remain appropriate. FOLLOW UP/RECOMMENDATIONS It is recommended that Ms. Castillo contact our clinic if there are changes to her personal or family history of cancer, as this information may change our genetic testing recommendations. Additionally, she is welcome to contact our clinic periodically, as our genetic testing options will likely improveover time. It was a pleasure to speak with Ms. Castillo. She is welcome to contact me with any questions. Time: 8 min Cynthia Irby MS, [facility] Licensed Genetic Counselor Cc: Dr. Ana Martinez Ms. Cristiana Castillo (via [employer]) OLOGICAL ENGINEER documented in this encounter Plan of Treatment Not on filedocumented as of this encounter Visit Diagnoses Not on filedocumented in this encounter Care Teams Body Presser Relationship Specialty Start Date End Date Mary Kay Lr, ESCALATOR MECHANIC, APPRENTICE EMBALMER PCP - General Nurse Practitioner 12/01/17 04/23/21 [address] [place] [address] documented as of this encounter
--- OUTSIDE RECORDS SUMMARY | 2021-11-06 20:40 | XMS_ITS | Encounter Summary ---
:1975 [facility] Address [address], [place] [address] Care Team Providers Name Role Phone Mary Kay Lr APRN, TECHNICAL PROGRAMS MANAGER Primary Care Provider [phone] Encounter Details Date Type Department Care Team Description 03/19/2020 Telemedicine [facility] Cancer Helen Martinez, Invasive lobular carcinoma of right breast, stage 1 (HRC) (Primary Dx); Center at [facility] Malignant neoplasm of overlapping sites of right breast in female, estrogen receptor positive (HRC); [address] Asymptomatic HIV infection (HRC); [address] [place] [address] [place] [id number] [phone] Social History Tobacco Use Types Packs/Day Years Used Date Smoking Tobacco: Never Smokeless Tobacco: Never Alcohol Use Standard Drinks/Week Comments Yes 7 (1 standard drink = 0.6 oz pure alcoho l) Alcohol Habits Answer Date Recorded How often do you have a drink containing 4 or more times a w cachil dehe 02/01/2020 alcohol? How many drinks containing alcohol do you have Not asked on a typical day when you are drinking? How often do you have six or more drinks on one Not asked occasion? Comment: Not asked Sex Assigned at Date Recorded Not on file documented as of this encounter Patient Instructions Patient Helen Manley MD - 03/19/2020 2:30 PM CST Dear Cristiana, It was a pleasure to meet with you from the [facility]. DIAGNOSIS: 1. R breast invasive lobular carcinoma, grade 2. Stage IA ([id number]) s/p right mastectomy and sentinel lymph node biopsy. OncotypeDx recurrence score = 27. 2. Genetic testing with variations of unknown significance: a. 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 POLE gene VUS c.6775C>T As we discussed, an OncotypeDx RS of 27 is associated with a 9-year risk of distant recurrence of 16% with tamoxifen (endocrine) therapy alone following surgery. The addition of chemotherapy offers a > 15% benefit in terms of risk reduction. Young age has also been associated in clinical trials to be associated with increased benefit derived from chemotherapy. However, there are also potential toxicities associated with chemotherapy as we discussed and which you will review also from [employer]. Most of these toxicities will be transient, but some patients do experience residual long-term effects such as peripheral neuropathy. The chemotherapy that I would recommend for you is called TC = docetaxel (taxoteter) + cyclophosphamide (cytoxan). This is given via IV every 21 days for a total of 4 treatments. You would also be getting a medication called Neupogen which boosts your immune system while you are on chemo. TREATMENT/PLAN: 1. Let us know in the next week or so how you would like to proceed 2. If no chemotherapy, then we would proceed with endocrine therapy with an aromatase inhibitor (daily pill) for at least 5 years At the current time, our guidelines do not recommend holding/delaying treatment. The guidelines are likely to change, but we don't know what they will change to or when they will change, if they do. Continue to monitor temperature at home and contact the clinic if you develop a fever and/or shortness of breath and/or a cough. COVID Vaccine information from the [place] Department of Health: -Phase 1a, which has started, includes people working in health care settings who are at the highestrisk for COVID-19 exposure and residents of long-term care facilities. -Phase 1b: Frontline essential workers and adults 75 years and older -Phase 1c, Adults ages 65-74 years and people ages 16 to 64 years with high-risk medical conditions,and other essential workers will be able to get vaccinated. We do not yet know when people in phase 1b and 1c will be able to get the vaccine in [place]. Thiswill depend on how much vaccine the manufacturers are able to make and send out, and how many peopleget vaccinated in the first priority groups. People do not need to get on a waiting list or make an a ppointment at this time. Updates will be provided when the [facility] is able tostart vaccinating more people and they will provide more information at that time for how eligible people can get vaccinated. Follow up in 4 weeks if getting chemotherapy, otherwise 3 months If you would like to review additional information about the possible side effects from your treatment, this can be found in the [facility] information sheets that we have given to you or in the patienteducation section of your patient care guide. Also enclosed in the [facility] information sheets are s ymptoms that should prompt a call to the clinic. If you have any questions or concerns after this visit, please call the [facility] clinicnumber is [phone]. If you have concerns that arise after regular business hours, please call the nurse care line at [phone]. Helen Martinez MD 03/19/20 I spoke with Cristiana who has decided to have Chemo Therapy. Scheduling to be determined. Mara Ibarra 03/20/2020, 10:38 AM Staff Message sent to Dr. Martinez care team regarding how to schedule patient moving forward. CN/AC 03/20/2020, 3:20 PM All appointments scheduled with patient. Patient will view AVS on mywavest. 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>A; POLE gene VUS c.6775C>T Stage: IA ([id number]) Intent of treatment: curative Current treatment: TBD Disease/treatment history: 11/2019: mammogram/ultrasound: R breast 1.0 x 0.6 x 1.0 cm mass - R breast core needle biopsy - path: invasive lobular carcinoma, grade 2, ER+ (80%), MI+ (80%), Her2- (IHC 0) with associated ADH and ALH 12/2019: MRI breast: R breast with known bx-proven malignancy with multifocal non-mass enhancement; L breast with nonspecific non-mass enhancement; no axillary or internal mammary AZUL bilaterally - L breast biopsy, path negative for malignancy - genetic testing: with 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 woman who was contacted for evaluation of breast cancer. Since the last visit, she reports that she has been recovering well from her surgery. She has been pleased so far with her recovery though continues to have some axillary numbness/tingling. [facility] ROS: Full 10 point review of systems performed in its entirety. Normal other than that noted in the HPI, and as follows: Review of Systems Constitutional: Negative for appetite change, chills, diaphoresis, fatigue, fever and unexpected weight change. HENT: Negative for lump/mass. Eyes: Negative for eye problems. Respiratory: Negative for chest tightness, shortness of breath and wheezing. Cardiovascular: Negative for chest pain, leg swelling and palpitations. Gastrointestinal: Negative for abdominal distention, abdominal pain, blood in stool, constipation, diarrhea and nausea. Genitourinary: Negative for dysuria and hematuria. Musculoskeletal: Negative for back pain and gait problem. Skin: Negative for rash. Neurological: Positive for numbness (axillary). Negative for extremity weakness, gait problem, headaches and speech difficulty. Hematological: Negative for adenopathy. Does not bruise/bleed easily. Psychiatric/Behavioral: Negative for depression. The patient is not nervous/anxious. ECOG performance status: 0 - Fully active; no performance restrictions Objective: There were no vitals taken for this visit. Wt Readings from Last 2 Encounters: 02/15/20 130 lb (59 kg) 02/01/20 130 lb (59 kg) General: well-appearing, well-nourished woman in no acute distress Outpatient medications: Outpatient Medications Prior to Visit Medication Sig Dispense Refill ??? ALBUTEROL IN Inhale 1-2 puffs every 4 hours as needed. 17 PRN ??? BIKTARVY 50-200-25 MG tablet Take 1 Tablet by mouth daily. 90 Tablet 3 ??? LORATADINE OR ??? VITAMIN D, CHOLECALCIFEROL, OR Take 1 Capsule by mouth daily. No facility-administered medications prior to visit. Labs: No new data Pathology results: Surgical pathology 02/15/20 FINAL DIAGNOSIS A. Lymph node, sentinel, right axilla #1, excision: ?? One lymph node with no evidence of metastatic carcinoma (0/1) ?? B. Lymph node, sentinel, right axilla #2, excision: ?? One lymph node with no evidence of metastatic carcinoma (0/1) ?? C. Nipple, right, Biopsy, biopsy: ?? Dense stromal fibrosis ?? No atypia or malignancy ?? D. Breast, right, mastectomy: ?? Invasive lobular carcinoma [place] grade 2 ?? Size of the tumor is 1.1 x 1.0 x 0.8 cm ?? Angiolymphatic and perineural invasion not identified ?? Biopsy cavity present, completely excised ?? Negative resection margins (synoptic report below) ? E. Breast, right, Anterior superior margin 12 o'clock, excision: ?? No atypia or malignancy ?? F. Breast, right, New anterior margin 3 o'clock, excision: ?? No atypia or malignancy seen ?? G. Breast, right, New anterior margin 6 o'clock, excision: ?? No atypia or malignancy seen Imaging: No new data Assessment: Cristiana Castillo is a/an 45 y.o. post-menopausal woman with history significant for HIV infection, history of RAMYA-BSO (2011) who presents for evaluation of newly diagnosed breast cancer. ?? # R breast invasive lobular carcinoma, ER+/MI+/Her2- s/p R mastectomy and SLNB (02/2020) Stage IA ([id number]), OncotypeDx RS 27. We reviewed her diagnosis, clinical stage, prognosis, and treatment options moving forward. We reviewed the implications of her OncotypeDx RS = 27 which would fall into the high risk of recurrence category according to TAILORx trial; we reviewed that this is assoc iated with a 9-year risk of distant recurrence of 16% with tamoxifen alone. We discussed that there is a role in this clinical situation for adjuvant chemotherapy which is associated with a 15% benefit. We discussed that in general, women who are young (< 50) at diagnosis have been shown in various studies to derive more benefit from adjuvant chemotherapy as well. However, it is also important to discuss the risks of chemotherapy including potential long- term toxicities as well as risk for secondmalignancy (small risk but present nonetheless). Because of her otherwise clinically favorable features and Oncotype score on the lower end of the high risk category, we discussed proceeding with adjuvant TC. We discussed the rationale for treatment, administration, and potential toxicities in depth. The patient was provided with written resources from [facility]. ?? We additionally reviewed that there is benefit to her receiving adjuvant endocrine therapy with AI including the rationale for treatment, administration, and potential toxicities. The goal would be to treat for a total of 5 years. ?? # HIV infection Currently receiving Biktarvy (bictegravir, emtricitabine, tenofovir alafenamide) and following with Dr. Hicks. We discussed the risks of the evolving COVID-19 virus and potential implications this could have on the patient. We discussed that at the current time, our guidelines do not recommend holding/delaying treatment. We discussed the guidelines are likely to change, but we don't know what they will change to or when they will change, if they do. We discussed the importance of monitoring temperature at home and contacting the clinic if they develop a fever and/or shortness of breath and/or a cough. After our discussion patient stated full understanding and agreement with the plan. # COVID-19 vaccine COVID Vaccine information from the [place] Department of Health: -Phase 1a, which has started, includes people working in health care settings who are at the highestrisk for COVID-19 exposure and residents of long-term care facilities. -Phase 1b: Frontline essential workers and adults 75 years and older -Phase 1c, Adults ages 65-74 years and people ages 16 to 64 years with high-risk medical conditions,and other essential workers will be able to get vaccinated. We do not yet know when people in phase 1b and 1c will be able to get the vaccine in [place]. Thiswill depend on how much vaccine the manufacturers are able to make and send out, and how many peopleget vaccinated in the first priority groups. People do not need to get on a waiting list or make an a ppointment at this time. Updates will be provided when the [place] [facility] is able tostart vaccinating more people and they will provide more information at that time for how eligible people can get vaccinated. QOPI Data: Pain: 0 Advanced Directives: Not Discussed Recommendations: 1. Patient will discuss with her /family and let us know QUENTIN whether she would like to proceed with adjuvant chemotherapy 2. Tentatively plan adjuvant TC x 4 cycles in the next 1-2 weeks (if adequate wound-healing): a. Docetaxel 75 mg/m2 IV on day 1 b. Cyclophosphamide 600 mg/m2 IV on day 1 per 21-day cycle c. G-CSF on day 2 Patient's and 's questions were answered to their apparent satisfaction. They understand to call with any questions or concerns. Thank you for including me in the care of this patient. Please contact me with any questions. Helen Martinez MD Hematology/Oncology At least 60 minutes were spent with this patient in counseling and coordination of care, review of records, collecting medical data and/or discussing with multidisciplinary team members. FILLER Ann Mcgraw RN - 03/19/2020 2:30 PM CST Pt has agreed to start chemotherapy with taxotere and cytoxan. Please schedule for chemo start, if possible, 03/28 or 03/29. Will need labs, provider (DESIREE CONKLIN), and infusion. She will be seeing surgery on 03/26, if they think she needs more healing time, may have to push chemo start back a week or so. Ann Mcgraw RN 03/21/2020, 8:48 AM FILLER Ann Mcgraw RN - 03/19/2020 2:30 PM CST Pt scheduled appropriately, pending OK from surgery on 03/26. 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
--- OUTSIDE RECORDS SUMMARY | 2021-11-06 20:40 | XMS_ITS | Encounter Summary ---
:1975 Author Organization [employer] Address [id number] [address] Care Team Providers Name Role Phone Mary Kay Lr APRN, DIPPER [employer] Primary Care Provider [phone] Reason for Visit Auth/Cert Specialty Diagnoses / Procedures Referred By Contact Refer red To Contact Diagnoses Invasive lobular carcinoma of right breast, stage 1 ([place]) . Procedures RIGHT NIPPLE SPARING MASTECTOMY AND SENTINEL LYMPH NODE BIOPSY ON RIGHT RECONSTRUCTION BREAST WITH INSERTION IMPLANT Referral ID Status Reason Start Date Expiration Date Visits Requ ested Visits Authorized [id number] 1 1 Encounter Details Date Type Department Care Team Description 02/15/2020 Hospital Encounter [facility] Operating Room Briana Perez Invasive lobular [facility]. JO Ha, [facility] carcinoma of right [place], [place] 640 [facility] breast, stage 1 [id number] [place], [place] ([place]) [phone] [id number] Social History Tobacco Use Types Packs/Day Years [...] Sign Reading Time Taken Comments Blood Pressure 135/85 02/15/2020 4:45 PM SENIOR ART DIRECTOR Pulse 55 02/15/2020 4:45 PM SENIOR ART DIRECTOR Temperature 36.4 ??C (97.6 ??F) 02/15/2020 4:45 PM SENIOR ART DIRECTOR Respiratory Rate 16 02/15/2020 4:45 PM SENIOR ART DIRECTOR Oxygen Saturation 100% 02/15/2020 4:45 PM SENIOR ART DIRECTOR Inhaled Oxygen Concentration - - Weight 59 kg (130 lb) 02/15/2020 9:42 AM SENIOR ART DIRECTOR Height 170.2 cm (5' 7) 02/15/2020 9:42 AM SENIOR ART DIRECTOR Body Mass Index 20.36 02/15/2020 9:42 AM SENIOR ART DIRECTOR documented in this encounter Discharge Instructions Discharge InstructionsAnnabella Gold RN - 02/15/2020 4:38 PM CST Images from the original note were not included. CONTACT INFORMATION If it is after hours call the Careline at [phone]. [facility] Surgery: Please contact your clinic during regular business hours or in case of an Emergency dial 911. [facility], ANESTHESIA Today you received General/Minor Sedation: Rest in bed the day of surgery, then advance to normal activity the next day. Let's talk about what to expect after receiving anesthesia. After anesthesia, reactions are slow andsome patients may become lightheaded or dizzy. The following safety precautions are recommended: ?? Don't drink alcoholic beverages. ?? Don't use any other drugs than those ordered by your physician. ?? Don't drive a car or any other vehicle. ?? Don't work with machinery or power tools. ?? Be careful walking. Be extra careful walking up and down stairs. DANGER SIGNALS I should call my clinic if I experience any of the following: ?? Temperature higher than 101 degrees Fahrenheit ?? Redness that has spread ?? Persistent bleeding ?? Green/yellow/infected, foul smelling drainage from incision site ?? Reaction to new medications ?? Severe pain ?? Swelling What can you expect after surgery? Recovery Breast cancer surgery helps many women go on to lead normal lives. Your outcome depends on many things, especially the stage of the cancer. You will probably be able to go back to work or your normal routine in 3 to 6 weeks. This depends onthe type of work you do and any further treatment. Talk with your doctor about other treatment you may need. Your personal preferences and considerations are important when choosing a treatment that is right for you. Lymph nodes If you had an axillary lymph node dissection at the time of your surgery, many lymph nodes were removed from your armpit area. Without these lymph nodes, your arm may swell. This is called lymphedema. You will have to take good care of your affected arm. Do not carry heavy things with that arm. Wear loose sleeves and bracelets. Your doctor or physical therapist can teach you arm exercises that will let you move your arm as you always have. Before you get blood pressure tests, blood draws, or shots in that arm, tell your doctor that you had lymph nodes removed. Appearance You will have a scar, but it will fade in time. You have some choices in how you look. Talk to your doctor about breast forms. Ask about reconstructive surgery. This can sometimes be done at the same time as the mastectomy. Follow-up care is a ele part of your treatment and safety. Be sure to make and go to all appointments, and call your doctor if you are having problems. It's also a good idea to know your test results and keep a list of the medicines you take Mastectomy: What to Expect at Home Your Recovery Right after the surgery you will probably feel weak, and you may feel sore for 2 to 3 days. You may have a pulling or stretching sensation near or under your arm. You may also have itching, tingling, and throbbing in the area. This will get better in a few days. You will likely have several drains near your incision. These help with healing. The drains will be removed when the fluid buildup slows. Drains are usually removed in the first few weeks after surgery. You may be able to go back to your normal routine or return to work in several weeks, but it may take longer. How long it takes you to recover will depend on the type of surgery you had. It also depends on whether you had breast reconstruction at the same time, or if you need other treatment. Your doctor or nurse will be able to give you an idea of what you can expect. When you find out that you have cancer, you may feel many emotions and may need some help coping. This is common. Seek out family, friends, and counselors for support. You also can do things at home tomake yourself feel better while you go through treatment. Call the [employer] ( ) or visit its website at www.cancer.org for more information. This care sheet gives you a general idea about how long it will take for you to recover. But each person recovers at a different pace. Follow the steps below to get better as quickly as possible. How can you care for yourself at home? Activity ? Rest when you feel tired. Getting enough sleep will help you recover. After any activity, restand raise your affected arm for a period of time equal to your activity time. ? Try to walk each day. Start by walking a little more than you did the day before. Bit by bit, increase the amount you walk. Walking boosts blood flow and helps prevent pneumonia and constipation. ? Avoid strenuous activities, such as biking, jogging, weightlifting, or aerobic exercise, untilyour doctor says it is okay. This includes housework, especially if you have to use your affected arm. You will probably be able to do your normal activities in 3 to 6 weeks. Avoid repeated motions with your affected arm, such as weed pulling, window cleaning, or vacuuming, for 6 months. ? Avoid lifting anything over 10 to 15 pounds for 4 to 6 weeks. This may include a child, grocery bags, a heavy briefcase or backpack, cat litter or dog food bags, or a vacuum street cleaner. ? Ask your doctor when you can drive again. ? You will probably be able to go back to work or your normal routine in 3 to 6 weeks. This depends on the type of work you do and any further treatment. ? Your doctor will let you know how soon you can take showers or baths. Diet ? You can eat your normal diet. If your stomach is upset, try bland, low-fat foods like plain rice, broiled chicken, toast, and yogurt. ? Drink plenty of fluids (unless your doctor tells you not to). ? You may notice that your bowels are not regular right after your surgery. This is common. Try to avoid constipation and straining with bowel movements. Take a fiber supplement such as Citrucel orMetamucil every day. If you have not had a bowel movement after a couple of days, take a mild laxative like Milk of Magnesia or a stool softener like Colace. Medicines ? Your doctor will tell you if and when you can restart your medicines. He or she will also giveyou instructions about taking any new medicines. ? If you take aspirin or some other blood thinner, ask your doctor if and when to start taking it again. Make sure that you understand exactly what your doctor wants you to do. ? Take pain medicines exactly as directed. ? If the doctor gave you a prescription medicine for pain, take it as prescribed. ? If you are not taking a prescription pain medicine, ask your doctor if you can take an xwlk-ncs-rsyhina medicine. ? If your doctor prescribed antibiotics, take them as directed. Do not stop taking them just because you feel better. You need to take the full course of antibiotics. ? If you think your pain medicine is making you sick to your stomach: ? Take your medicine after meals (unless your doctor has told you not to). ? Ask your doctor for a different pain medicine. Incision care ? You will have a dressing over the cut (incision). A dressing helps the incision heal and protects it. Your doctor will tell you how to take care of this. ? A woman may wear a special bra (surgi-bra) that holds the dressing in place after the surgery.The doctor will say when the bra is no longer needed. Drain care ? You may have one or more drains near your incision. Your doctor will tell you how to take careof them. ??Arm exercises ? If you had any lymph nodes removed from under your arm, your doctor will advise you to do arm exercises. Do not do the exercises until your doctor says it is okay. Ice and elevation ? Do not use ice for swelling or pain. ? Prop up your arm on a pillow when you sit or lie down. Try to keep your arm above the level ofyour heart. This will help reduce swelling. Follow-up care is a lee part of your treatment and safety. Be sure to make and go to all appointments, and call your doctor if you are having problems. It's also a good idea to know your test results and keep a list of the medicines you take. When should you call for help? Call 911 anytime you think you may need emergency care. For example, call if: ? You passed out (lost consciousness). ? You have chest pain, are short of breath, or cough up blood. ?? Call your doctor now or seek immediate medical care if: ? You are sick to your stomach or cannot drink fluids. ? You cannot pass stools or gas. ? You have pain that does not get better after you take your pain medicine. ? You have loose stitches, or your incision comes open. ? Bright red blood has soaked through the bandage over your incision. ? You have signs of a blood clot in your leg (called a deep vein thrombosis), such as: ? Pain in your calf, back of the knee, thigh, or groin. ? Redness or swelling in your leg. ? You have signs of infection, such as: ? Increased pain, swelling, warmth, or redness. ? Red streaks leading from the incision. ? Pus draining from the incision. ? A fever. ??Watch closely for changes in your health, and be sure to contact your doctor if: ? You have any problems. ? You have new or worse swelling or pain in your arm. Where can you learn more? 1. Go to https://[employer]/Neuralieverary or [employer]em[employer]ireto/GoodThreadsrary. 2. Enter S340 in the search box. Current as of: September 29, 2018?Content Version: 12.4 ?? [employer]. Care instructions adapted under license by your healthcare professional. If you have questions abouta medical condition or this instruction, always ask your healthcare professional. [employer] disclaims any warranty or liability for your use of this information. OR ART DIRECTOR Discharge Instr - MeaghanHelene reyes RN - 02/15/2020 2:53 PM CST Call your clinic or seek medical help if you have any sudden change in your condition or if you haveany of the following: Symptoms get worse. Chest pain. Temperature above 102 F degrees when taken by mouth. Shortness of breath gets worse. Lips and fingertips turn blue (this shows a lack of oxygen). You have side effects from your medication. You can not take medication by mouth because of vomiting. OR ART DIRECTOR documented in this encounter Medications at Time of Discharge Medication Sig Dispensed Refills Start Date End Date ALBUTEROL IN Inhale 1-2 puffs 17 0 12/12/2003 every 4 hours as needed. VITAMIN D, Take 1 Capsule by 0 CHOLECALCIFEROL, OR mouth daily. BIKTARVY 50-200-25 MG Take 1 Tablet by 90 Tablet 3 03/14/19 20 03/30/2020 tablet mouth daily. cephalexin (KEFLEX) 500 Take 1 Capsule by 56 Capsule 0 02/1402/29/2020 MG capsule mouth 4 times a day for 14 days. HYDROcodone-acetaminophe Take 1 Tablet by 18 Tablet 0 02/1402/29/2020 n (NORCO) 5-325 MG mouth every 4 hours tablet as needed for Pain (severe pain). LORATADINE 0 08/28/2020 ORIndications: Low back pain ([facility]) documented as of this encounter Progress Notes Briana Perez MB, [facility] - 02/15/2020 5:18 PM CST Pathology results were given to the patient over the phone. All questions were answered. Dr. Martienz - would you like us to request an oncotype or do you like to do that? JO Bauman [facility] 02/22/2020, 4:12 PM OR ART DIRECTOR documented in this encounter Procedure Notes Stephanie Soto MD - 02/15/2020 5:18 PM CST CRISTIANA CASTILLON: [id number] [facility]: [id number] OPERATIVE REPORT DATE OF SURGERY: 02/15/2020 : 1975 SURGEON: STEPHANIE SOTO MD PREOPERATIVE DIAGNOSIS: Right breast cancer. POSTOPERATIVE DIAGNOSIS: Right breast cancer. INDICATION FOR PROCEDURES: This a 45-year-old female who has right breast cancer who is planning to undergo a right side nipple-sparing mastectomy. She has opted for immediate implant-based reconstruction. She did have breast asymmetry to start with. We discussed that we would try to even the breasts out if possible. Risks and benefits have been reviewed. She understands, agrees, and wishes to proceed. PROCEDURES PERFORMED: 1. Right breast reconstruction with placement of permanent implant. 2. Right breast AlloDerm sling. 3. Intraoperative angiography with injection of indocyanine green. DESCRIPTION OF PROCEDURE: The patient was identified, marked in the preoperative area, and taken to the operating room. After an adequate level of anesthesia was obtained, the patient was prepped and draped sterile fashion. She underwent a right-sided mastectomy by Dr. Perez. Please see separate dictated note. We proceeded with our portion of the procedure. The breast itself weighed about 220 g. We put in a trial of a sizer. We brought in the SPY, injected 3 cc of indocyanine green, and assessed the vascularity. She had excellent vascularity to the nipple-areolar complex and the skin with a 265 implant, she had perfusion by 15 seconds. We opted to upsize our implant to a 295. We irrigated the pocket out with Betadine and antibiotic irrigation and placed reference number [id number], [id number]. It was wrapped with a 16 x 20 piece of AlloDerm. We took this and placed it into the defect, sutured down the AlloDerm to the chest wall with 2-0 Vicryl, placed a 15 round drain, injected Exparel along the anterior muscle, then closed our skin incision with 3-0 PDS deep stitches quilting it down to the chest wall to recreate her IMF followed by 3-0 Monocryl deep dermal and a 3-0 Stratafix. Prineo, a soft dressing, and a bra were placed. The patient was awakened and taken to the recovery room. ESTIMATED BLOOD LOSS: 5 cc for my portion of the procedure. BLOOD PRODUCTS GIVEN: None. DRAINS AND PACKS: Correct. STEPHANIE SOTO MD CAH/MODL /[id number] OR ART DIRECTOR Mary Kay Gold MD - 02/15/2020 1:11 PM CST [facility] Brief Operative Progress Note Surgery Date: 02/15/2020 Surgeon(s) and Role: Panel 1: * Briana Perez MB, [facility] - Primary Panel 2: * Stephanie Soto MD - Primary Pre-op Diagnosis: * Invasive lobular carcinoma of right breast, stage 1 ([facility]C) [C50.911] Post-op Diagnosis: * Invasive lobular carcinoma of right breast, stage 1 ([facility]) [C50.911] Procedure(s) (LRB): RIGHT NIPPLE SPARING MASTECTOMY AND SENTINEL LYMPH NODE BIOPSY ON RIGHT AXILLA (Right) RECONSTRUCTION BREAST WITH INSERTION IMPLANT (Right) EBL: 20 ml Specimens: ID Type Source Tests Collected by Time Destination 1 : RIGHT AXILLARY SENTINAL LYMPH NODE #1 HOT Tissue Lymph node, sentinel SURGICAL PATHOLOGY Briana Perez MB, [facility] 02/15/2020 1056 2 : RIGHT AXILLARY SENTINAL LYMPH NODE #2 HOT AND BLUE Tissue Lymph node, sentinel SURGICAL PATHOLOGY Briana Perez MB, [facility] 02/15/2020 1100 3 : Biopsy Tissue Nipple, right SURGICAL PATHOLOGY Briana Perez MB, [facility] 02/15/2020 1159 4 : Short stitch superior, long stitch lateral, white stitch retroaereolar tissue-fresh for margins Tissue Breast, right SURGICAL PATHOLOGY Briana Perez MB, [facility] 02/15/2020 1223 5 : Anterior superior margin 12 o'clock; stitch muro new margin Tissue Breast, right SURGICAL PATHOLOGY Briana Perez MB, [facility] 02/15/2020 1230 6 : New anterior margin 3 o'clock-stitch muro new margin Tissue Breast, right SURGICAL PATHOLOGY Briana Perez MB, [facility] 02/15/2020 1259 7 : New anterior margin 6 o'clock-stitch muro new margin Tissue Breast, right SURGICAL PATHOLOGY Briana Perez MB, [facility] 02/15/2020 1303 Complications / Findings: No complications. See full op note for findings. Also see Plastics op notefor reconstructive portion of procedure. Mary Kay Gold MD General Surgery PGY1 OR ART DIRECTOR Briana Perez MB, [facility] - 02/15/2020 1:10 PM CST [facility] Operative Note Surgery Date: 02/15/2020 ATTENDING SURGEON: JO Bauman, [facility] ASSISTANTS: Mary Kay Gold PREOPERATIVE DIAGNOSIS: right breast cancer POSTOPERATIVE DIAGNOSIS: right breast cancer. PROCEDURE PERFORMED: 1. right nipple sparing mastectomy 2. right axillary sentinel lymph node biopsy ANESTHESIA: GETA INDICATIONS FOR THE PROCEDURE: Cristiana Castillo is a 45 y.o. old female who presented with right breast cancer. Her right breast had a cancer at 3:00, atypia at 6:00 and an abnormality on MRI at 12:00. Based on these findings and her small breast size, I recommended a mastectomy. She participated in ourshared decision making process and ultimately decided upon a nipple sparing mastectomy. I discussed the risks, benefits, and alternatives to right nipple sparing mastectomy, and a right axillary sentinel lymph node biopsy. She verbalized understanding and wished to proceed. ONCOLOGIC SYNOPSIS SLNB: Substrates used for SLNB in non-neoadjuvant setting: technetium and methylene blue dye Substrates used for SLNB in neoadjuvant setting: n/a All colored nodes or non colored nodes at end of a dye filled channel removed: yes, 1 All radioactive nodes removed: yes, 2 All palpable suspicious nodes removed, if present: none If clips were placed in pathologically-involved nodes, nodes removed: n/a DESCRIPTION OF THE PROCEDURE: The patient was identified in the preoperative area. After appropriateconsent was obtained, she was taken back to the operating room and placed supine on the operating room table. SCDs were placed to her bilateral lower extremities. She was placed under a general anesthetic by the anesthesia team. I injected 1mL of methylene blue into the subareolar region and breast massage was then conducted. Her chest was prepped and draped in the usual sterile fashion. A timeout was taken where the patient and procedure were correctly identified and confirmed. She was given a preoperative dose of antibiotics. I started with the sentinel node biopsy. I made an incision in the axilla. The subcutaneous tissues were taken down with electrocautery. The clavipectoral fascia was opened up. I identified 1 lymph node which was hot and blue. I identified a second lymph node which was hot. Once these were removed, there were no other hot, hard, enlarged, or blue lymph nodes. The clavipectoral fascia was re-approximated with a 2-0 vicryl. The skin was closed with 3-0 vicryl for deep derma and 4-0 monocryl running subcuticular. I made an inframammary incision as indicated by the plastic surgeon. The subcutaneous tissues were taken down with electrocautery. Flaps were created in all directions. I started with taking the breastoff the pectoralis muscle in a inferior to superior fashion. I then created the skin flap. This extended superior to the clavicle, inferior to the inframammary fold, medial to the sternum, and lateral to the lat dorsi. Care was taken when dissected under the NAC to leave a healthy margin of tissue fornipple viability. A nipple biopsy was taken and sent for permanent evaluation. Once removed, the breast was oriented with a short stitch on the superior aspect and a long stitch on the lateral aspect. This was sent for gross margin evaluation. The pathology review found the anterior and posterior margins were less than 1cm at the 3:00 cancer site. The 6:00 biopsy site was not identified on gross evaluation. An additional anterior margin was taken which did not include skin but was to the level of the dermis at 3:00. This was marked with a stitch on the new margin and sent for permanent evaluation. Additional anterior margins were also taken at 12:00 and 6:00 as the flap was abit thicker in these areas. These were also [facility] There was no additional posterior tissue as I had taken the breast off including pec fascia atthe 3:00 site so an additional posterior margin was not taken. The case was then transitioned to Dr. Charles for the reconstructive portion. The complexity of the case was associated with the small incision and meticulous hemostasis requiredfor nipple/skin sparing. This added substantially to the technical difficulty and time (60 minutes) required to perform the procedure. EBL: 20 ml SPECIMENS: ID Type Source 1 : RIGHT AXILLARY SENTINAL LYMPH NODE #1 HOT Tissue Lymph node, sentinel 2 : RIGHT AXILLARY SENTINAL LYMPH NODE #2 HOT AND BLUE Tissue Lymph node, sentinel 3 : Nipple Biopsy Tissue Nipple, right 4 : Short stitch superior, long stitch lateral, white stitch retroaereolar tissue-fresh for margins Tissue Breast, right 5 : Anterior superior margin 12 o'clock; stitch muro new margin Tissue Breast, right 6 : New anterior margin 3 o'clock-stitch muro new margin Tissue Breast, right 7 : New anterior margin 6 o'clock-stitch muro new margin Tissue Breast, right COMPLICATIONS: None apparent. DISPOSITION: Stable to the PACU. COUNTS: All sponge and instrument counts were correct x2 at the end of the case. I was present and scrubbed for the entire procedure. JO Bauman, [facility] 02/15/2020, 1:15 PM OR ART DIRECTOR documented in this encounter Plan of Treatment Not on filedocumented as of this encounter Procedures Procedure Name Priority Date/Time Associated Comments Diagnosis SURGICAL PATHOLOGY Routine 02/15/2020 10:56 Invasive lobular R esults for this AM SENIOR ART DIRECTOR carcinoma of right procedure are in breast, stage 1 the results ([facility]) section. RECONSTRUCTION BREAST 02/15/2020 10:03 Invasive lobula r WITH INSERTION IMPLANT AM SENIOR ART DIRECTOR carcinoma of right breast, stage 1 ([facility]) MASTECTOMY WITH 02/15/2020 10:03 Invasive lobular SENTINEL LYMPH NODE AM SENIOR ART DIRECTOR carcinoma of right BIOPSY breast, stage 1 ([facility]) documented in this encounter Results Surgical Path (02/15/2020 10:56 AM SENIOR ART DIRECTOR) Component Value Ref Test Analysis Performed Pathologis t Range Method Time At Signature Case Report Surgical Pathology ?Case: [id number] ? 02/21/2020 [facility] Authorizing Provider: ??Briana Tinoco, ?? Collected: ? 02/15/2020 1056 ? 5:45 PM HOSPITA L ? MB, [facility] ? SENIOR ART DIRECTOR Ordering Location: ? [facility] Operating Room ?Received: ?02/15/2020 1106 ? Pathologist: ? Radha Truong, ? Specimens: ?? A) - Lymph nod e, sentinel, RIGHT AXILLARY SENTINAL LYMPH NODE #1 HOT ? B) - Lymp h node, sentinel, RIGHT AXILLARY SENTINAL LYMPH NODE #2 HOT AND BLUE ? C) - Nipp le, right, Biopsy ? D) - [place] [address], right, Short stitch superior, long stitch lateral, white stitch ? retroaere olar tissue-fresh for margins ? E) - [place], right, Anterior superior margin 12 o'clock; stitch muro new margin ? F) - [address], right, New anterior margin 3 o'clock-stitch muro new margin ? G) - [address], right, New anterior margin 6 o'clock-stitch muro new margin ? FINAL DIAGNOSIS A. Lymph node, sentinel, right axilla #1, excision: 02/21/2020 [facility] Electronically One lymph node with no evidence of metastatic carcinoma (0 /1) 5:45 PM [facility]OS[facility] signed by Toby Tobias MD B. Lymph node, sentinel, right axilla #2, excision: on 02/17/2020 at One lymph node with no evidence of metastatic carcinoma (0/1 ) 4:25 PM C. Nipple, right, Biopsy, biopsy: Dense stromal fibrosis No atypia or malignancy D. Breast, right, mastectomy: Invasive lobular carcinoma Crowell grade 2 Size of the tumor is 1.1 x 1.0 x 0.8 cm Angiolymphatic and perineural invasion not identified Biopsy cavity present, completely excised Negative resection margins (synoptic report below) E. Breast, right, Anterior superior margin 12 o'clock, excis ion: No atypia or malignancy F. Breast, right, New anterior margin 3 o'clock, excision: No atypia or malignancy seen G. Breast, right, New anterior margin 6 o'clock, excision: No atypia or malignancy seen Comment: Block for ancillary testing is D3. Synoptic Report INVASIVE CARCINOMA OF THE BR EAST: Resection ??(INVASIVE CARCINOMA OF THE BREAST: COMPLETE EXCISION - All Specimens) 02/21/2020 [facility] 5:45 [facility] 8th Edition - Protocol posted: 04/06/2019 SENIOR ART DIRECTOR SPECIMEN ?? Procedure: ?Total mastectomy ?? Specimen Laterality: ?Right TUMOR ?? Histologic Type: ?Invasive lobular carcinoma ?? Glandular (Acinar) / Tubular Differentiation: ?Score 3 ?? Nuclear Pleomorphism: ?Score 2 ?? Mitotic Rate: ?Score 1 ?? Overall Grade: ?Grade 2 (scores of 6 or 7) ?? Tumor Size: ?Greates t dimension of largest invasive focus (Millimeters): 11 x 10 x 8 mm ?? Tumor Focality: ?Single focus of invasive carcinoma ?? Ductal Carcinoma In Situ (DCIS): ?Not identified ?? Tumor Extent: ? Lymphovascular Invasion: ?Not identified ?? Dermal Lymphovascular Invasion: ?No skin present ?? Microcalcifications: ?Not identified ?? Treatment Effect in the Breast: ?No known presurgica l therapy MARGINS ?? Invasive Carcinoma Margins: ?Uninvolved by invasive carcinoma ? Distance from Closest Margin (Millimeters): ?5 mm ? Closest Margin(s): ?Posterior LYMPH NODES ?? Regional Lymph Nodes: ?Uninvolved by tumor cells ? Total Number of Lymph Nodes Examined: ?2 ? Number of [place] Nodes Examined: ?2 PATHOLOGIC STAGE CLASSIFICATION (pTNM, AJCC 8th Edition) ? Primary Tumor (pT): ?pT1c ?? Regional Lymph Nodes Modifier: ?(sn): [place] node( s) evaluated. ?? Regional Lymph Nodes (pN): ?pN0 ?? Breast Biomarker Testing Performed on Previous Biopsy: ? Estrogen Receptor (ER ) Status: ?Positive (greater than 10% of cells demonstrate nuclear positivity) ? Percentage of Cells with Nuclear Positivity: ? 80 % ?? Breast Biomarker Testing Performed on Previous Biopsy: ? Progesterone Receptor (PgR) Status: ?Negative ?? Breast Biomarker Testing Performed on Previous Biopsy: ? HER2 (by immunohistochemistry): ?Negative (Score 0) ADDENDUM Sections from 6 02/21/2020 [facility] Add endum and 12:00 5:45 PM [facility]OS[facility]ITAL electronic ally o'clock are SENIOR ART DIRECTOR signed b Radha Lofton MD with no residual on 02/21/2020 at atypical ductal 5:45 PM hyperplasia. Clinical Invasive lobular 02/21/2020 [facility] Information carcinoma of 5:45 PM [facility] right breast, SENIOR ART DIRECTOR stage 1 (HRC) Microscopic Microscopic 02/21/2020 [facility] Description examination is 5:45 PM [facility]OS[facility] performed. SENIOR ART DIRECTOR Gross Description A. Lymph node, sentinel, RIG HT AXILLARY SENTINAL LYMPH NODE #1 HOT. 02/21/2020 [facility] The specimen is received in formalin and labeled with the patient's name and Lymph node, sentinel, RIGHT AXILLARY SENTINAL LYMPH NODE #1 HOT. The specimen consists of a 0.9 x 0.7 x 0.3 cm spear-pink to 5:45 PM [facility]OS[facility] yellow lymph node. The speci men is trisected and entirely submitted in one cassette. EO SENIOR ART DIRECTOR B. Lymph node, sentinel, RIGHT AXILLARY SENTINAL LYMPH NODE #2 HOT AND BLUE. The specimen is received in formalin and labeled with the patient's name and Lymph node, sentinel, RIGHT AXILLARY SENTINAL LYMPH NODE #2 HOT AND BLUE. The specimen consists of a 1.1 x 0.9 x 0.3 cm spear -yellow to pink, focally matilda e lymph node. The specimen is serially sectioned and entirely submitted in one cassette. EO C. Nipple, right, Biopsy. The specimen is received in formalin and labeled with the patient's name and Nipple, right, Biopsy. The specimen consists of a 1.8 x 0.4 x 0.4 cm irregular, unoriented fragment of pink-white fibrous t issue. Sectioning reveals ho mogeneous white-pink fibrous tissue without grossly identifiable tumor. The specimen is excised at 12:04 PM, 02/15/2020. The specimen is serially sectioned for formalin fixatio n at 12:12 PM, 02/15/2020. The specimen is inked black, serially sectioned and entirely submitted in one cassette. DT D. Breast, right, Short stit ch superior, long stitch lateral, white stitch retroaereolar tissue-fresh for margins. Right mastectomy (nipple/skin sparing) with solitary tumor RECEIVED: Fresh and labeled with the patient's name SPECIMEN SOURCE: Breast, ri ght, Short stitch superior, long stitch lateral, white stitch retroaereolar tissue-fresh for margins WEIGHT: 234 g DIMENSIONS: 15.8 x 14.3 x 2.8 cm SKIN: Absent ORIENTATION: Short stitch superior, long stitch lateral, whi te stitch TUMOR: Size -- 1.1 x 1 x 0.8 cm Location -- approximate 3:00 Description -- firm white with stellate borders RELATIONSHIP TO MARGINS: Anterior superior (blue) -- abutting Anterior inferior (red) -- 1 cm Posterior (black) -- 0.5 cm BIOPSY SITE: Identified within the tumor, containing a plug and clip FIBROUS TISSUE: Approximatel y 40% dense pink to white; there is slightly gritty appearing tissue at the 12:00 aspect however no definitive additional masses or lesions are identified grossly OTHER: A definitive biopsy plug/is not identified at the 6:0 0 aspect LYMPH NODES: No lymph nodes are identified in the lateral so ft tissue. EXCISION TIME: 12:23 PM, 02/15/2020 FIXATION TIME: 1:30 PM, 02/15/2020 INTRAOPERATIVE CONSULTATION: Performed TISSUE SUBMISSION: Content Manager sections are submitted in 18 cassettes. 1-4. 3:00 tumor, entirely elizalde bmitted from medial to lateral with perpendicular anterior superior and posterior margins 5. Perpendicular anterior inferior margin closest to tumor 6. 6:00 medial inferior 7. 6:00 medial posterior 8. 6:00 central inferior 9. 6:00 central posterior 10. 6:00 lateral inferior 11. 6:00 lateral posterior 12-13. Content Manager sections from 12:00 14. Upper outer quadrant 15. Lower outer quadrant 16. Upper inner quadrant 17. Lower inner quadrant 18. Retroareolar tissue, perpendicular section. CL E. Breast, right, Anterior s uperior margin 12 o'clock; stitch muro new margin. Right breast, new anterior s uperior margin 12 o' clock, without grossly identifiable tumor RECEIVED: In formalin and la beled with the patient's name and Breast, right, Anterior superior margin 12 o'clock; stitch muro new margin WEIGHT & DIMENSIONS: 3.76 g, 4.9 x 2.3 x 0.7 cm ORIENTATION & INKING: Stitch designated new margin; new margin -- black, opposite surface -- green FIBROUS TISSUE: [place]-white, smooth and glistening, less than 5% fibrous tissue, no tumor identified EXCISION & FIXATION TIMES: 12:30 PM, 02/15/2020, 1:16 PM, 2020 TISSUE SUBMISSION: The speci men is entirely submitted in eight cassettes (cassette 1-- en face margins). MD Cao Breast, right, New anterior margin 3 o'clock-stitch muro new margin . Right breast, new anterior m argin 3 o' clock, without grossly identifiable tumor RECEIVED: In formalin and la beled with the patient's name and Breast, right, New anterior margin 3 o'clock-stitch muro new margin WEIGHT & DIMENSIONS: 1.13 g, 2.1 x 1.8 x 0.6 cm ORIENTATION & INKING: Stitch designated new margin; new margin -- black, opposite surface -- green FIBROUS TISSUE: [place]-white, smooth and glistening, less than 5% fibrous tissue, no tumor identified EXCISION & FIXATION TIMES: 12:59 PM, 02/15/2020, 1:19 PM, 2020 TISSUE SUBMISSION: The speci men is entirely submitted in three cassettes (cassette 1-- en face margins). MD Rodriguez Breast, right, New anterior margin 6 o'clock-stitch muro new margin . Right breast, new anterior m argin 6 o'clock, without grossly identifiable tumor RECEIVED: In formalin and la beled with the patient's name and Breast, right, New anterior margin 6 o'clock-stitch muro new margin WEIGHT & DIMENSIONS: 1.5 g, 2.5 x 1.9 x 1.1 cm ORIENTATION & INKING: Stitch designated new margin; new margin -- black, opposite surface -- green FIBROUS TISSUE: 10% fibrous tissue, no tumor identified EXCISION & FIXATION TIMES: 1:03 PM, 02/15/2020 and 1:25 PM, 02/15/2020 TISSUE SUBMISSION: The speci men is entirely submitted in three cassettes (cassette 1-- en face margins). EO Intraoperative D. Breast, right, Short stit ch superior, long stitch lateral, white stitch retroaereolar tissue-fresh for margins. 0 02/21/2020 [facility] Consultation Gross Intraoperative Diagnos is: Right breast -- 3:00 tumor abutting anterior superior margin, posterior 0.5 cm. 6:00 clip not identified . (Result called into OR10 by [facility] at 12:40 PM, 02/15/2020) 5:45 PM HOSPITAL SENIOR ART DIRECTOR Embedded Images 02/21/2020 [facility] 5:45 PM [facility] SENIOR ART DIRECTOR Specimen Anatomical Collection Method Collection Time Receive d Time (Source) Location / / Volume Laterality Tissue SENTINEL LYMPH 02/15/2020 10:56 NODE BIOPSY / AM SENIOR ART DIRECTOR 11:06 AM SENIOR ART DIRECTOR Unknown Tissue specimen SENTINEL LYMPH 02/15/2020 11:00 2020 (specimen) NODE BIOPSY / AM SENIOR ART DIRECTOR 11:06 AM SENIOR ART DIRECTOR Unknown Tissue specimen STRUCTURE OF RIGHT 02/15/2020 11:59 (specimen) NIPPLE / Unknown AM SENIOR ART DIRECTOR 12:08 PM CS T Tissue specimen BREAST STRUCTURE / 02/15/2020 12:23 (specimen) Unknown PM SENIOR ART DIRECTOR 12:32 PM SENIOR ART DIRECTOR Tissue specimen BREAST STRUCTURE / 02/15/2020 12:30 1:05 (specimen) Unknown PM SENIOR ART DIRECTOR PM SENIOR ART DIRECTOR Tissue specimen BREAST STRUCTURE / 02/15/2020 12:59 1:05 (specimen) Unknown PM SENIOR ART DIRECTOR PM SENIOR ART DIRECTOR Tissue specimen BREAST STRUCTURE / 02/15/2020 1:03 PM 02/15/2020 1:09 (specimen) Unknown SENIOR ART DIRECTOR PM SENIOR ART DIRECTOR Briana OSORIO, [facility] LAB PATHOLOGY Performing Organization Address City/State/ZIP Code [facility] [place] [address] documented in this encounter Visit Diagnoses Diagnosis Invasive lobular carcinoma of right [address], stage 1 (HRC) - Primary Plan of Care - Breana Sousa RN - 02/15/2020 3:45 PM CST I completed a full assessment and assessments as ordered and per policy on this patient during my work shift. Reassessments completed during my work shift are unchanged unless documented. OR ART DIRECTOR Plan of Care - Dillon Sequeira RN - 02/15/2020 9:19 AM CST Patient states that she has had a hysterectomy in her past, no UPT needed. Dillon Sequeira, RN OR ART DIRECTOR documented in this encounter Admitting Diagnoses Diagnosis Invasive lobular carcinoma of right [address], stage 1 (HRC) documented in this encounter Administered Medications Inactive Administered Medications - up to 3 most recent administrations Medication Order MAR Action Action Date Dose Rate Site bupivacaine 1.3% (PF) (EXPAREL) liposoma l injection 20 mL 20 mL, Injection, ONCE (NON-SCHEDULED), Starting on Thu02/15/20 at 0942, Until Thu02/15/20 at 191, For 1 dose, DO NOT GIVE IV bupivacaine 1.3% (PF) Given 02/15/2020 1:22 PM SENIOR ART DIRECTOR 20 mL Right Breast Fold (EXPAREL) liposomal injection ONCE PRN, Starting on Thu02/15/20 at 1311, Until Thu02/15/20 at 191, Intra-op ceFAZolin (ANCEF) 2 g, gentamicin 160 mg Given 02/15/2020 11 :04 AM SENIOR ART DIRECTOR 1,000 mL in sodium chloride for irrigation 1,000 mL irrigation ONCE PRN, Starting on Thu02/15/20 at 1104, Until Thu02/15/20 at 1917 dexamethasone (DECADRON) injection 4-8 m g 4-8 mg, Intravenous, Q15MIN PRN, Other, Nausea, Starti ng on Thu02/15/20 at 1341, Until Thu02/15/20 at 191, For 2 doses, S tep 2 Dexamethasone 4-8 mg IV If not given in operating room. (Use in PACU only). I f medication given in OR may give up to 8 mg total dose (including intra-operative dose) or go t o step 3. If nausea not resolved in 15 minutes go to step 3 if o rdered otherwise proceed to next antiemetic step.., PACU (only) fentaNYL (SUBLIMAZE) injection 25-50 mcg 25-50 mcg, Intravenous, [id number], Pain, Starting on Thu02/15/20 at 1341, Until Thu02/15/20 at 191, 25 mcg IV q5min prn base d on the patient's pain scale rating for mild to moderate pain (1 to 5). 50 mcg IV q5min prn ba sed on the patient's pain scale rating for moderate to severe pain (6 to 10). Total PACU fentanyl dose not to exceed 200 mcg. Use fentanyl initially f or a short acting agent for treatment of acute post operative pain. May use in conjuction with a longer acting agent for optimal pain control. Respiratory rate must be greater than 10 to administer medications., PACU (only) HYDROmorphone (DILAUDID) injection 0.2-0 .3 mg 0.2-0.3 mg, Intravenous, Q10MIN PRN, Loyda n, Starting on Thu02/15/20 at 1341, Until Thu02/15/20 at 1918, PACU USE ONLY 0.2 mg IV q10min prn based on the patients pain scale rating for mild to moderate pain (1-5) 0.3 mg IV q10min prn based on the patients pain scale rating for moderate to severe pain (6 to 10) Total PACU hydromorphone dose not to exceed 2 mg per hour, PACU ( only) insulin lispro (HumALOG) injection vial 2-4 Units 2-4 Units, Subcutaneous, PRN BASED ON BL OOD SUGAR, Blood Sugar >, Starting on Thu02/15/20 at 0904, Blood Sugar </= to 70 mg/dL treat for hypoglycemia and notify Anesthesia,
Blood Sugar <150 mg/d L give 0 units
Blood Sugar 151-200 mg/dL give 2 units
Blood Sugar 201-250 mg/ dL give 3 units
Blood Sugar >251 mg/dL give 4 units and call Anesthesia. If pat ient receives humalog insulin, recheck FSG Q2h and treat FSG results using humALOG sliding scale until transported to OR., Pre-op insulin lispro (HumALOG) injection vial 2-4 Units 2-4 Units, Subcutaneous, PRN BASED ON BLOOD SUGAR, Blo od Sugar >, Blood Sugars, Starting on Thu02/15/20 at 1341, PACU PAT IENTS ONLY Blood Sugar 151-199 mg/dl give 2 units, Blood Sugar 200-250 mg/dl give 3 units, Blood Sugar > 250 mg/dl give 4 units and call anesthesia, PACU (only) labetalol (NORMODYNE) injection 5 mg 5 mg, Intravenous, [id number], Blood Pressure >, Startin g on Thu02/15/20 at 1341, Until Thu02/15/20 at 1918, Must call anes thesia before initiating medication. Give q 5 minutes PRN up to 25 mg. (PACU use only), PACU (only ) lactated ringers infusion Intravenous, at 30 mL/hr, CONTINUOUS, Starting on Thu02/15/20 at 0930, Pre-op lactated ringers infusion Started 02/15/2020 9:57 AM SENIOR ART DIRECTOR 30 mL/hr 30 mL/hr 30 mL/hr, Intravenous, SDS Continuous, Starting on Thu02/15/20 at 0930, Pre-op lactated ringers IV bolus 1,000 mL 1,000 mL, Intravenous, Administer over 1 Hours, CONTINUOUS, Starting on Thu02/15/20 at 0930, Pre-op lidocaine PF (XYLOCAINE) 1 % injection 1 mL 1 mL, Intradermal, PRE-PROCEDURE, Starti ng on Thu02/15/20 at 0904, For 1 dose, Use up to 1mL to assist with IV starts , Pre-op methylene blue (PROVAY BLUE) 0.5% (5 mg/mL) Given 02/15/2020 1:2 2 PM SENIOR ART DIRECTOR 1 mL injection ONCE PRN, Starting on Thu02/15/20 at 1322, Until Thu02/15/20 at 1918, Intra-op ondansetron (ZOFRAN) injection 4 mg 4 mg, Intravenous, Q15MIN PRN, Nausea, S tarting on Thu02/15/20 at 1341, Until Thu02/15/20 at 1918, For 2 doses, Step 1 Onda nsetron 4 mg IV If not given in operating room. (PACU use only) If an intra-operat yana dose was given may repeat up to a total dose of 8 mg (including intra-operative dose). If naus ea is not resolved in 15 minutes go to step 2 (Dexamethasone) if ordered otherw ise proceed to next antiemetic step., PACU (only) povidone-iodine (BETADINE) 10 Given 02/15/2020 1:22 PM SENIOR ART DIRECTOR 25 mL Right Breast Fold % topical liquid ONCE PRN, Starting on Thu02/15/20 at 1322, Intra-op documented in this encounter Active and Recently Administered Medications Times are shown in SENIOR ART DIRECTOR. Scheduled Medication Order 02/13/2020 02/14/2020 02/15/2020 bupivacaine 1.3% (PF) (EXPAREL) liposomal injection 20 mL 20 mL, Injection, ONCE (NON-SCHEDULED), Starting Thu02/15/20 at 0942, For 1 dose, DO NOT GIVE IV ceFAZolin (ANCEF) 2 g in dextrose 50 mL IVPB (COMPLETED) 1041 (Given - Provider: Emma Alaniz METAL SASH SETTER, BILINGUAL KINDERGARTEN TEACHER) 2 g, Intravenous, Administer over 30 Min utes, ONCE (NON-SCHEDULED), Starting Thu02/15/20 at 0904, For 1 dose, For patient weight less than or equal to 119 kg PRE-OP, Pre-op lidocaine PF (XYLOCAINE) 1 % injection 1 mL 1 mL, Intradermal, PRE-PROCEDURE, Starti ng Thu02/15/20 at 0904, For 1 dose, Use up to 1mL to assist with IV starts , Pre-op Continuous Medication Order 02/13/2020 02/14/2020 02/15/2020 lactated ringers infusion 0930 ( Due) Intravenous, at 30 mL/hr, CONTINUOUS, Starting Thu02/15/20 at 093 0, Pre-op lactated ringers infusion 0957 ( Started - Provider: Dillon Sequeira RN) 30 mL/hr, Intravenous, at 30 mL/hr, SDS Continuous, Starting Thu02/15/20 at 0930, Pre-op lactated ringers IV bolus 1,000 mL 0930 (Due) 1,000 mL, Intravenous, Administer over 1 Hours, CONTINUOUS, Starting Thu02/15/20 at 0930, Pre-op PRN Medication Order 02/13/2020 02/14/2020 02/15/2020 bupivacaine 1.3% (PF) (EXPAREL) liposomal injection 1311 (Canceled Entry - Provider: Stephanie Soto MD)1322 (Given - Provider: Stephanie Soto MD) ONCE PRN, Starting Thu02/15/20 at 1311, Intra-op ceFAZolin (ANCEF) 2 g, gentamicin 160 mg in sodium chloride for irrigation 1,000 mL irrigation 1104 (Given - Provid er: Stephanie Soto MD) ONCE PRN, Starting Thu02/15/20 at 1104, Until Thu02/15/20 at 1918 dexamethasone (DECADRON) injection 4-8 mg 4-8 mg, Intravenous, Q15MIN PRN, Other, Nausea, Starting Thu02/15/20 at 1341, For 2 doses, Step 2 Dexamethasone 4-8 mg IV If not given in operating room. (Use in PACU only). If medication given in OR may give up to 8 mg total dose (including i ntra-operative dose) or go to step 3. If nausea not resolved in 15 minutes go to step 3 if ordered otherwise proceed to next antiemetic step.., PACU (only) fentaNYL (SUBLIMAZE) injection 25-50 mcg 25-50 mcg, Intravenous, [id number], Pain, Starting Thu02/15/20 at 1341, 25 mcg IV q5min prn based on the patient's pain scale rating for mild to moderate pain (1 to 5). 50 mcg IV q5min prn based on the pat ient's pain scale rating for moderate to severe pain (6 to 10). Total PACU fentanyl dose not to exceed 200 mcg. Use fentanyl initially for a short acting agent for treatment of acute post operative pain . May use in conjuction with a longer ac ting agent for optimal pain control. Respiratory rate must be greater than 10 to administer medications., PACU (only) HYDROcodone-acetaminophen (NORCO) 5-325 MG per tablet 1-2 Tablet 1-2 Tablet, Oral, Q4H PRN, Pain, Starting Thu02/15/20 at 1420, PA CU & Post-op HYDROmorphone (DILAUDID) injection 0.2-0.3 mg 0.2-0.3 mg, Intravenous, Q10MIN PRN, Loyda n, Starting Thu02/15/20 at 1341, PACU USE ONLY 0.2 mg IV q10min prn based on the patients pain scale rating for mild to moderate pain (1-5) 0.3 mg IV q10min prn ba sed on the patients pain scale rating fo r moderate to severe pain (6 to 10) Total PACU hydromorphone dose not to exceed 2 mg per hour, PACU (only) insulin lispro (HumALOG) injection vial 2-4 Units 2-4 Units, Subcutaneous, PRN BASED ON BL OOD SUGAR, Blood Sugar >, Starting Thu02/15/20 at 0904, Blood Sugar </= to 70 mg/dL treat for hypoglycemia and notify Anesthesia,
Blood Sugar <1 50 mg/dL give 0 units
Blood Sugar 151 -200 mg/dL give 2 units
Blood Sugar 201-250 mg/dL give 3 units
Blood Sugar >251 mg/dL give 4 units and call Anesthesia. If patient rec eives humalog insulin, recheck FSG Q2h a nd treat FSG results using humALOG sliding scale until transported to OR., Pre-op insulin lispro (HumALOG) injection vial 2-4 Units 2-4 Units, Subcutaneous, PRN BASED ON BL OOD SUGAR, Blood Sugar >, Blood Sugars, Starting Thu02/15/20 at 1341, PACU PATIENTS ONLY Blood Sugar 151-199 mg/dl give 2 units, Blood Sugar 200-250 mg/dl give 3 units, Blood Sugar > 250 mg/dl give 4 units and call anest owen, PACU (only) labetalol (NORMODYNE) injection 5 mg 5 mg, Intravenous, [id number], Blood Press ure >, Starting Thu02/15/20 at 1341, Must call anesthesia before initiating medication. Give q 5 minutes PRN up to 25 mg. (PACU use only), PACU (only) methylene blue (PROVAY BLUE) 0.5% (5 mg/mL) injection 1322 (Given - Provider: Stephanie Soto MD) ONCE PRN, Starting Thu02/15/20 at 1322, Intra-op ondansetron (ZOFRAN) injection 4 mg 4 mg, Intravenous, Q15MIN PRN, Nausea, S tarting Thu02/15/20 at 1341, For 2 doses, Step 1 Ondansetron 4 mg IV If not given in operating room. (PACU use only) If an intra-operative dose was given may repea t up to a total dose of 8 mg (including intra-operative dose). If nausea is not resolved in 15 minutes go to step 2 (Dexamethasone) if ordered otherwise proceed to next antiemetic step., PACU (only) povidone-iodine (BETADINE) 10 % topical liquid 1322 (Given - Provider: Stephanie Soto MD) ONCE PRN, Starting 02/15/20 at 1322, Intra-op documented in this encounter Care Teams Meat Soaker Relationship Specialty Start Date End Date Mary Kay Lr, METAL SASH SETTER, DIPPER FISH PCP - General Nurse Practitioner 12/01/17 04/23/21 [address] [place] [address] documented as of this encounter
--- OUTSIDE RECORDS SUMMARY | 2021-11-06 20:40 | XMS_ITS | Encounter Summary ---
:1975 Author Organization [facility] Address [address], [place] [address] Care Team Providers Name Role Phone Mary Kay Lr LEAD INFORMATICA DEVELOPER, ENGINEERING DRAWINGS CHECKER Primary Care Provider [phone] Reason for Visit Auth/Cert Specialty Diagnoses / Procedures Referred By Contact Refer red To Contact Diagnoses Invasive lobular carcinoma of right breast, stage 1 (HRC) . Procedures RIGHT NIPPLE SPARING MASTECTOMY AND SENTINEL LYMPH NODE BIOPSY ON RIGHT RECONSTRUCTION BREAST WITH INSERTION IMPLANT Referral ID Status Reason Start Date Expiration Date Visits Requ ested Visits Authorized [id number] 1 1 Encounter Details Date Type Department Care Team Description 02/15/2020 Anesthesia Event RH Operating Room Monique Berry MD [address] [place], [place] [id number] [address] [place] [address] Jess Camacho MD [address] [place] [address] [place] [address] Anesthesia Record Procedure Summary Procedure Name Responsible Anesthesia Start Anesthesia Stop Anesthesiologist Time Time RIGHT NIPPLE SPARING Monique Berry MD 02/15/20 1019 07/30 1410 MASTECTOMY AND SENTINEL LYMPH NODE BIOPSY ON RIGHT AXILLA (Right) Events Date Time Event Comment 02/15/2020 1019 1019 An Start 1019 Quick Note YORDAN Stapleton present for case. 1021 An Start Data 1028 An Induction 1029 An LMA 1030 MD/DO Present 1125 MD/DO Present 1241 MD/DO Present 1405 An LMA Removed Spontaneous resp irations with adequate air exchange. LMA re moved without complications. Transported with oxygen to recovery. 1405 an stop data 1410 Care Handoff Note I discussed wi th the receiving nurse and we: 1) Identified the p atient, lee family member(s) or patient surrogat e 2) Identified the responsible practitioner 3) Reviewed the pertinent medical history 4) Discu ssed the surgical/procedure course 5) Reviewed intr a-op anesthesia management and issues during an esthesia 6) Set expectations for the post-procedu re period 7) Allowed opportunity for questions an d acknowledgement of understanding of report Electr onically signed by Emma Alaniz APRN, ELIGIBILITY COUNSELOR 1410 An Stop Care transferred . Name Total midazolam 2 mg/2 mL injection (aka VERSED) 2 mg FENTanyl injection (aka SUBLIMAZE) 2 mL lidocaine 2% PF injection aka (XYLOCAINE) 50 mg propofol 10 mg/mL for procedural sedation (aka diPRIva n) 200 mg propofol (DIPRIVAN) 10 mg/mL IV 1,856.14 mg carboxymethylcellulose 1% eye drops (aka CELLUVISC) 2 Drop ondansetron injection (aka ZOFRAN) 4 mg dexamethasone 4 mg/mL injection (aka DECADRON) 4 mg ceFAZolin (ANCEF) 2 g in dextrose 50 mL IVPB 2 g diphenhydrAMINE injection (aka BENADRYL) 25 mg alfentanil infusion 8 mL lactated ringers infusion 800 mL Agents Name O2 Air Blood No blood administrations on file. Lines, Drains, and Airways Type Details Placement Removal Peripheral IV Placement Date: 02/15/20 0956 by 02/15/20 1550 b y 02/15/20; Placement Dillon Sequeira Harrison, Becky L, RN Time: 955; RN Pre-existing: No; Inserted by?: RN; Size (Gauge): 20 G; Orientation: Left; Insertion attempts: 1; Blood draw with insertion?: no; Patient Tolerance: Tolerated well; Removal Date: 02/15/20; Removal Time: 1550; Removal Reason: Per Protocol; Catheter Tip: Intact LMA Placement Date: 02/15/20 1029 by 02/15/20 1405 b y Alaniz, 02/15/20; Placement Emma Alaniz APRN, Emma Kate APRN, ELIGIBILITY COUNSELOR Time: 1029; Placed ELIGIBILITY COUNSELOR By: SRNA; Induction Type: Pre-O2, IV; Pediatric induction type: Smooth; Airway masking: Easy; Size (mm): 4; Placement details: Prepped and lubricated, Placed with ease; Difficulty: Atraumatic; Placement verification: Positive EtCO2; Removal Date: 02/15/20; Removal Time: 1405 Incision/Surgical Site 02/15/20; 1104; #1; 02/15/20 1104 by 02/10 1718 by Lda, No; Axilla; Lateral, Sofia Almendarez, Discon tinue Right; 02/29/20; 1718 RN Incision/Surgical Site 02/15/20; 1105; #2; 02/15/20 1105 by 02/10 1718 by Lda, No; Breast; Right; Sofia Almendarez, Disconti nue 02/29/20; 1718 RN Drain 02/15/20; 1323; 1323; 02/15/20 1323 by 02/29/20 1718 by Lda, No; 1; Right; Breast; Renae Wray, [place]va[place] inue Prashant; 15 Fr. RN documented in this encounter Social History Tobacco Use Types Packs/Day Years Used Date Smoking Tobacco: Never Smokeless Tobacco: Never Alcohol Use Standard Drinks/Week Comments Yes 7 (1 standard drink = 0.6 oz pure alcoho l) Alcohol Habits Answer Date Recorded How often do you have a drink containing 4 or more times a w [place] 02/01/2020 alcohol? How many drinks containing alcohol do you have Not asked on a typical day when you are drinking? How often do you have six or more drinks on one Not asked occasion? Comment: Not asked Sex Assigned at Date Recorded Not on file documented as of this encounter Miscellaneous Notes Anesthesia Postprocedure Evaluation - Monique Berry MD - 02/15/2020 3:26 PM CST [facility] Anesthesia Post-op Note Patient: Cristiana Castillo Post-Op Diagnosis: Invasive lobular carcinoma of right breast, stage 1 (hrc) Procedure Performed: Procedure(s): Right - RIGHT NIPPLE SPARING MASTECTOMY AND SENTINEL LYMPH NODE BIOPSY ON RIGHT AXILLA - Wound Class: 1 CLEAN Right - RECONSTRUCTION BREAST WITH INSERTION IMPLANT - Wound Class: 1 CLEAN Anesthesia Type: General Post-op vital signs: Vitals Value Taken Time BP 134/89 02/15/20 1521 Temp 97.5 ??F (36.4 ??C) 02/15/20 1407 Pulse 63 02/15/20 1514 Resp 14 02/15/20 1520 SpO2 100 % 02/15/20 1525 Vitals shown include unvalidated device data. Pain Score: Presence Of Pain: complains of pain/discomfort Preferred Pain Scale: number (Numeric Rating Pain Scale) Pain Rating (0-10): Rest: 1 Post-op assessment: No anesthesia complication. Patient location: PACU Airway Status: Patent Cardiovascular function: Satisfactory Hydration status: Satisfactory PONV: None Level of Consciousness: Awake Fully Participates Postop Assessment: Patient tolerated procedure well. Electronically signed by: Monique Berry MD 02/15/2020 3:26 PM TRY CLEANER Anesthesia Preprocedure Evaluation - Jess Camacho MD - 02/15/2020 9:43 AM CST [facility] Anesthesia Pre-op Evaluation Procedure: Procedure(s): Right - RIGHT NIPPLE SPARING MASTECTOMY AND SENTINEL LYMPH NODE BIOPSY ON RIGHT Right - RECONSTRUCTION BREAST WITH INSERTION IMPLANT HPI: 45 y.o. old female with Invasive lobular carcinoma of right breast, stage 1 (hrc) NPO Status: No Known Allergies Past Medical History: Diagnosis Date ??? Asthma ??? HIV (human immunodeficiency virus infection) (HRC) Patient Active Problem List Diagnosis ??? S/P hysterectomy ??? Asthma ??? Plantar fasciitis ??? Asymptomatic HIV infection (HRC) ??? Non-seasonal allergic rhinitis due to pollen ??? Malignant neoplasm of overlapping sites of right breast in female, estrogen receptor positive (HRC) ??? Invasive lobular carcinoma of right breast, stage 1 (HRC) Past Surgical History: Procedure Laterality Date ??? HYSTERECTOMY 2011 with [facility] (in [place]) for endometriosis/cysts ??? TONSILLECTOMY No outpatient medications have been marked as taking for the 02/15/20 encounter (Hospital Encounter). Current Facility-Administered Medications Medication Dose Route Frequency ??? ceFAZolin (ANCEF) 2 g in dextrose 50 mL IVPB 2 g Intravenous Once (Non-Scheduled) ??? insulin lispro (HumALOG) injection vial 2-4 Units 2-4 Units Subcutaneous PRN based on Blood Sugar ??? lactated ringers infusion Intravenous Continuous ??? lactated ringers infusion 30 mL/hr Intravenous SDS Continuous ??? lactated ringers IV bolus 1,000 mL 1,000 mL Intravenous Continuous ??? lidocaine PF (XYLOCAINE) 1 % injection 1 mL 1 mL Intradermal Pre-Procedure Labs: Lab Results Component Value Date/Time SODIUM 137 02/29/2016 09:41 AM K 3.7 02/29/2016 09:41 AM CHLORIDE 104 02/29/2016 09:41 AM BUN 11 12/21/2019 01:33 PM CREATININE 0.70 12/21/2019 01:33 PM GLUCOSE 82 09/19/2016 10:30 AM Lab Results Component Value Date/Time WBC 5.1 12/21/2019 01:33 PM HGB 14.2 12/21/2019 01:33 PM HCT 43.1 12/21/2019 01:33 PM PLTS 240 12/21/2019 01:33 PM No results found for: INR Blood Bank: No results found for: ABO, ABSCR EKG: No results found for this or any previous visit. Physical Exam: There were no vitals taken for this visit. Assessment/Plan: Review of Systems Patient does not have GERD. Patient is not a current smoker. The patient reports alcohol use. Patient denies any recent URI. History of PONV: No. History of motion sickness: No. Patient denies any personal or family history of anesthesia complications (PONV). Exam Mental Status: Alert and oriented. Mallampati score: I (One). Mouth opening: Normal Thyromental Distance: > 3 finger breadths and Normal Neck Extension: Full Neck Circumference > 40 cm?: No Current airway assessment:Normal Dentition: Normal. Cardiac Exam: Regular rate and rhythm. Respiratory Exam: Breath sounds clear to auscultation Assessment ASA Status: 2 . Plan Anesthesia type: General and LMA Induction: Intravenous and Propofol Maintenance: Postoperative pain management (PONV): Plan for postoperative opioid use PONV Risk Score Peds:0 PONV Risk Score Adult: 3 PONV Prophylaxis (planned): Ondansetron and Decadron Anesthetic plan, risks, benefits and alternatives discussed with: Patient or Personnel Manager agree tothe anesthesia treatment plan. H&P Reviewed and Patient examined, no change observed IV access Antibiotics per surgery Electronically signed by: Jess Camacho MD 02/15/2020 9:43 AM TRY CLEANER documented in this encounter Plan of Treatment Not on filedocumented as of this encounter Visit Diagnoses Not on filedocumented in this encounter Administered Medications Inactive Administered Medications - up to 3 most recent administrations Medication Order MAR Action Action Date Dose Rate Site alfentanil (ALFENTA) injection Given 02/15/2020 1:10 PM POULTRY CLEANER 1 mL Starting on Thu02/15/20 at 1028, Until Thu02/15/20 at 1357 Given 02/15/2020 12:20 PM POULTRY CLEANER 2 mL Given 02/15/2020 11:23 AM POULTRY CLEANER 2.5 mL carboxymethylcellulose PF (CELLUVISC) 1 % Given 02/15/2020 1 0:35 AM POULTRY CLEANER 2 Drops ophthalmic gel Starting on Thu02/15/20 at 1035, Until Thu02/15/20 at 1357 ceFAZolin (ANCEF) 2 g in dextrose 50 mL IVPB Given 02/15/2020 10:41 AM POULTRY CLEANER 2 g 2 g, Intravenous, Administer over 30 Minutes, ONCE (NON-SCHEDULED), Starting on Thu02/15/20 at 0904, For 1 dose, For patient weight less than or equal to 119 kg PRE-OP, Pre-op dexamethasone (DECADRON) injection Given 02/15/2020 10:30 AM POULTRY CLEANER 4 mg Starting on Thu02/15/20 at 1030, Until Thu02/15/20 at 1357 diphenhydrAMINE (BENADRYL) injection Given 02/15/2020 10:31 AM POULTRY CLEANER 25 mg Starting on Thu02/15/20 at 1031, Until Thu02/15/20 at 1357 fentaNYL (SUBLIMAZE) injection Given 02/15/2020 10:30 AM POULTRY CLEANER 1 mL Starting on Thu02/15/20 at 1026, Until Thu02/15/20 at 1357 Given 02/15/2020 10:26 AM POULTRY CLEANER 1 mL lactated ringers infusion Started 02/15/2020 10:19 AM POULTRY CLEANER Intravenous, Starting on Thu02/15/20 at 1019 lidocaine PF (XYLOCAINE) 2 % injection Given 02/15/2020 10:28 AM POULTRY CLEANER 50 mg Starting on Thu02/15/20 at 1028, Until Thu02/15/20 at 1357 midazolam (VERSED) injection Given 02/15/2020 10:19 AM POULTRY CLEANER 2 mg Starting on Thu02/15/20 at 1019, Until Thu02/15/20 at 1357 ondansetron (ZOFRAN) injection Given 02/15/2020 1:34 PM POULTRY CLEANER 4 mg Starting on Thu02/15/20 at 1334, Until Thu02/15/20 at 1357 propofol (DIPRIVAN) 10 mg/mL injection Given 02/15/2020 10:31 AM POULTRY CLEANER 20 mg Intravenous, Starting on Thu02/15/20 at 1028, Until Thu02/15/20 at 1357 Given 02/15/2020 10:28 AM POULTRY CLEANER 180 mg propofol (DIPRIVAN) 10 Rate/Dose 02/15/2020 12:58 100 mcg/kg/min 35. 4 mL/hr mg/mL injection Change PM POULTRY CLEANER Starting on Thu02/15/20 at 1028, Until Thu02/15/20 at 1357 Rate/Dose Change 02/15/2020 12:26 PM POULTRY CLEANER 140 mcg/kg/min 49.56 mL/hr Rate/Dose Change 02/15/2020 11:42 AM POULTRY CLEANER 170 mcg/kg/min 60.18 mL/hr documented in this encounter Care Teams Evening Or Night Nurse Supervisor Relationship Specialty Start Date End Date Mary Kay Lr, LEAD INFORMATICA DEVELOPER, ENGINEERING DRAWINGS CHECKER PCP - General Nurse Practitioner 12/01/17 04/23/21 [address] [place] [address] documented as of this encounter
--- OUTSIDE RECORDS SUMMARY | 2021-11-06 20:40 | XMS_ITS | Encounter Summary ---
:1975 [facility] Address [address] [address] Care Team Providers Name Role Phone Mary Kay Lr APRN, CNP Primary Care Provider [phone] Reason for Visit Reason Comments AFTERCARE, SURGICAL Encounter Details Date Type Department Care Team Description 02/16/2020 Telephone Operating Room Briana Perez AFTERCARE, SURGICAL [address] [facility]. [place], [place] [address] [address] [facility] [phone] [place], [place] [address] (Wo rk) Social History Tobacco Use Types [...] on filedocumented in this encounter Care Teams Rate Manager Relationship Specialty Start Date End Date Mary Kay Lr, MARQUES, EXTRACTOR OPERATOR HELPER PCP - General Nurse Practitioner 12/01/17 04/23/21 [address] [place] [address] documented as of this encounter
--- OUTSIDE RECORDS SUMMARY | 2021-11-06 20:40 | XMS_ITS | Encounter Summary ---
:1975 Author [facility] Address [address] [place] [address] Care Team Providers Name Role Phone Mary Kay Lr APRN, CNP Primary Care Provider Encounter Details Date Type Department Care Team Description 02/15/2020 Orders Only Initial Department [facility] HERNAN MCCLAIN MD [place], [place] [address] Interface provider [phone] [facility] [place] [address] Social History Tobacco Use Types Packs/Day Years Used Date Smoking Tobacco: Never Smokeless Tobacco: Never Alcohol Use Standard Drinks/Week Comments Yes 7 (1 standard drink = 0.6 oz pure alcoho l) Alcohol Habits Answer Date Recorded How often do you have a drink containing 4 or more times a w [place] 02/01/2020 alcohol? How many drinks containing alcohol [...] Name Priority Date/Time Associated Diagnosis Comme nts EKG 02/15/2020 Results for thi s procedure are in the resu lts section. documented in this encounter Results EKG (02/15/2020) Narrative This result has an attachment that is no t available. Interface Provider EKG documented in this encounter Visit Diagnoses Not on filedocumented in this encounter Care Teams Parquetry Floor Layer Relationship Specialty Start Date End Date Mary Kay Lr, MARQUES, INSURANCE VERIFICATION CLERK PCP - General Nurse Practitioner 12/01/17 04/23/21 [address] [place] [address] documented as of this encounter
--- OUTSIDE RECORDS SUMMARY | 2021-11-06 20:40 | XMS_ITS | Encounter Summary ---
:1975 Author Organization [facility] Address [address] [place] [address] Care Team Providers Name Role Phone Mary Kay Lr APRN, COMMUNICATIONS BILLING ANALYST Primary Care Provider [phone] Reason for Visit Procedure/Equipment (Routine) - Closed Specialty Diagnoses / Procedures Referred By Contact Refer red To Contact Diagnoses Malignant neoplasm of overlapping sites of right breast in female, estrogen receptor positive (HRC) Abnormal magnetic resonance imaging of left breast Briana Perez, Procedures MR Bx Breast Lt JO, [facility] [address] [place] [address] Referral ID Status Reason Start Date Expiration Date Visits Requ ested Visits Authorized [id number] Closed 12/16/2019 03/16/2021 1 1 Encounter Details Date Type Department Care Team Description 12/23/2019 Ancillary Procedure [facility] MRI Briana Perez Malignant neoplasm of overla pping sites of right breast in female, estrogen receptor positive (HRC); 640 [facility] [place], [facility] Abnormal magnetic resonance imaging of l eft breast [place], [place] [address] [facility] [address] [place], [place] [phone] [address] Social History Tobacco Use Types Packs/Day Years Used Date Smoking Tobacco: Never Smokeless Tobacco: Never Alcohol Use Standard Drinks/Week Comments Yes 7 (1 standard drink = 0.6 oz pure alcoho l) Alcohol Habits Answer Date Recorded How often do you have a drink containing 4 or more times a w [place] 02/01/2020 alcohol? How many drinks containing alcohol [...] Name Priority Date/Time Associated Diagnosis Comme nts MR BX BREAST LT Routine 12/23/2019 9:25 AM Malignant neoplasm of Results for this SUPERVISOR FILES overlapping sites of procedu re are in right breast in the results female, estrogen section. receptor positive (HRC) Abnormal magnetic resonance imaging of left breast documented in this encounter Results MM Post-Bx Mammogram Lt (12/23/2019 9:37 AM SUPERVISOR FILES) Anatomical Region Laterality Modality Breast Left Mammography Specimen (Source) Anatomical Location Collection Method / Collectio n Time Received Time / Laterality Volume Addenda Addendum by Marjorie Newell MD on 020 4:58 PM SUPERVISOR FILES Pathology reveals benign breast tissue. This is consistent with the imaging findings. A verbal report was gi durga to the patient. Patient to proceed with management of her known rig ht breast ILC. Impressions 12/23/2019 10:10 AM SUPERVISOR FILES : MRI guided biopsy of a non-mass enhancem ent in the left breast. ??Pathology pending. Post procedure mammogram obtain ed for clip placement. Narrative 12/23/2019 10:10 AM SUPERVISOR FILES LEFT BREAST VACUUM ASSISTED MRI GUIDED BIOPSY, CLIP PLACEMENT AND LEFT MAMMOGRAM: INDICATION: non-mass enhancement at 2 o' clock, middle depth PROCEDURE: ??Informed consent was obtain ed from the patient. ??With the patient prone on the MRI table, the non- mass enhancement was localized and MRI coordinates obtained. ??The breast w as cleansed with ChloraPrep. ?? Buffered lidocaine was used for local an esthesia and additional deep anesthesia achieved using lidocaine with epinephrine. ??A 9 gauge Suros needle was then advanced and 6 core biop sies obtained using vacuum assist. A clip was placed at the biopsy site. ?? Mammography was performed. The mammogram showed the clip to be in good position. Manual compression was held po st-procedure, to ensure hemostasis. The patient tolerated this w ell. Briana OSORIO, [facility] RAD LIONEL MR Bx Breast Lt (12/23/2019 9:25 AM SUPERVISOR FILES) Anatomical Region Laterality Modality Breast, Other Left Magnetic Resonance Specimen (Source) Anatomical Location Collection Method / Collectio n Time Received Time / Laterality Volume Addenda Addendum by Marjorie Newell MD on 020 4:58 PM SUPERVISOR FILES Pathology reveals benign breast tissue. This is consistent with the imaging findings. A verbal report was gi durga to the patient. Patient to proceed with management of her known rig ht breast ILC. Impressions 12/23/2019 10:10 AM SUPERVISOR FILES : MRI guided biopsy of a non-mass enhancem ent in the left breast. ??Pathology pending. Post procedure mammogram obtain ed for clip placement. Narrative 12/23/2019 10:10 AM SUPERVISOR FILES LEFT BREAST VACUUM ASSISTED MRI GUIDED BIOPSY, CLIP PLACEMENT AND LEFT MAMMOGRAM: INDICATION: non-mass enhancement at 2 o' clock, middle depth PROCEDURE: ??Informed consent was obtain ed from the patient. ??With the patient prone on the MRI table, the non- mass enhancement was localized and MRI coordinates obtained. ??The breast w as cleansed with ChloraPrep. ?? Buffered lidocaine was used for local an esthesia and additional deep anesthesia achieved using lidocaine with epinephrine. ??A 9 gauge Suros needle was then advanced and 6 core biop sies obtained using vacuum assist. A clip was placed at the biopsy site. ?? Mammography was performed. The mammogram showed the clip to be in good position. Manual compression was held po st-procedure, to ensure hemostasis. The patient tolerated this w ell. Briana OSORIO, [facility] RAD MRI documented in this encounter Visit Diagnoses Diagnosis Malignant neoplasm of overlapping sites of right breast in female, estrogen receptor positive (HRC) Abnormal magnetic resonance imaging of l eft breast Malignant neoplasm of overlapping sites of right breast in female, estrogen receptor positive (HRC) Abnormal magnetic resonance imaging of l eft breast documented in this encounter Administered Medications Inactive Administered Medications - up to 3 most recent administrations Medication Order MAR Action Action Date Dose Rate Site gadobutrol (GADAVIST) 1 MMOL/ML Given 12/23/2019 9:27 AM SUPERVISOR FILES 7 m L injection 7.5 mL 7.5 mL, Intravenous, ONCE (NON-SCHEDULED), Starting on Thu12/23/19 at 0927, Until Thu12/23/19 at 0927, For 1 dose documented in this encounter Care Teams Turning Machine Operator Relationship Specialty Start Date End Date Mary Kay Lr, MARQUES, COMMUNICATIONS BILLING ANALYST PCP - General Nurse Practitioner 12/01/17 04/23/21 [address] [place] [address] documented as of this encounter
--- OUTSIDE RECORDS SUMMARY | 2021-11-06 20:40 | XMS_ITS | Encounter Summary ---
:1975 Author Organization [facility] Address [address] [place] [address] Care Team Providers Name Role Phone Be Mary Kay Pitt APRN, YARD PIPE GRADER Primary Care Provider [phone] Reason for Visit Reason Onset Date Comments Post Op Exam DOS 02/15/20 R DTI ROUTINE, FOLLOW-UP 02/23/2020 Encounter Details Date Type Department Care Team Description 02/23/2020 Office Visit [facility]metic [facility] [place] following surgery [address] [place] [address] (Primary Dx) [address] [place] [address] [phone] Social History Tobacco Use Types Packs/Day Years [...] Patient Instructions Patient InstructionsMerlene Mas LPN - 02/23/2020 8:30 AM CST Follow up with Dr. Soto in 2-3 weeks Call when your drain output is less than 30cc per 24hr. [phone] ok to ask to leave message for Merlene if you're having trouble getting through. OK to shower and apply deodorant now. Avoid soaking breast and drain area. Avoid lifting, pushing, pulling, reaching over 8 pounds with right arm. If you experience any increased redness, pain, swelling, discharge that is white or green and foul smelling, fever or chills, please contact us to be seen sooner. [phone]. If this occurs after business hours or during the weekend, please contact the [facility] Nurse Line at [phone]. RESSOR TECHNICIAN documented in this encounter Progress Notes Stephanie Soto MD - 02/23/2020 8:30 AM CST F/u after dti recon on the R. Pending oncotype. Drain output still high Pain tolerable Exam Nipple viable slight rippling coreen serosanguionous Plan Call with drain output F/u in 2 weeks RESSOR TECHNICIAN documented in this encounter Plan of Treatment Not on filedocumented as of this encounter Visit Diagnoses Diagnosis Follow-up examination following surgery - Primary Follow-up examination, following unspeci fied surgery documented in this encounter Care Teams Farmer [employer] Relationship Specialty Start Date End Date Mary Kay Lr, CERTIFIED GENETIC COUNSELOR, YARD PIPE GRADER PCP - General Nurse Practitioner 12/01/17 04/23/21 [address] [place], [place] [address] documented as of this encounter
--- OUTSIDE RECORDS SUMMARY | 2021-11-06 20:40 | XMS_ITS | Encounter Summary ---
:1975 Author Organization [facility] Address [address] [place] [address] Care Team Providers Name Role Phone Mary Kay Lr APRN, CNP Primary Care Provider [phone] Encounter Details Date Type Department Care Team Description 03/02/2020 Orders Only [facility] [place], [place] [address] Interface provider [phone] [place] [address] Social History Tobacco Use Types Packs/Day Years Used Date Smoking Tobacco: Never Smokeless Tobacco: Never Alcohol Use Standard Drinks/Week Comments Yes 7 (1 standard drink = 0.6 oz pure alcoho l) Alcohol Habits Answer Date Recorded How often do you have a drink containing 4 or more times a w [place] 02/01/2020 alcohol? How many drinks containing alcohol [...] Name Priority Date/Time Associated Diagnosis Comme nts LABORATORY REPORT 03/02/2020 Results fo r this procedure are in the resu lts section. documented in this encounter Results LABORATORY REPORT (03/02/2020) Narrative This result has an attachment that is no t available. Interface Provider MD LEVIN/OTHER/AR documented in this encounter Visit Diagnoses Not on filedocumented in this encounter Care Teams Fresh Foods Clerk Relationship Specialty Start Date End Date Mary Kay Lr, MARQUES, AGILE TEST LEAD PCP - General Nurse Practitioner 12/01/17 04/23/21 [address] [place] [address] documented as of this encounter
--- OUTSIDE RECORDS SUMMARY | 2021-11-06 20:40 | XMS_ITS | Encounter Summary ---
:1975 Author Organization [facility] Address [address], [place] [address] Care Team Providers Name Role Phone Mary Kay Lr APRN, CNP Primary Care Provider [phone] Reason for Visit Reason Comments Test Results Encounter Details Date Type Department Care Team Description 12/30/2019 Telephone [facility] Sy Irby, Test Results at [address] [address] [place] [address] [phone] (Wo rk) Social History Tobacco Use Types [...] on filedocumented in this encounter Care Teams Employee Welfare Manager Relationship Specialty Start Date End Date Mary Kay Lr, MARQUES, COLD MOLDING PRESS OPERATOR PCP - General Nurse Practitioner 12/01/17 04/23/21 [address] [place] [address] documented as of this encounter
--- OUTSIDE RECORDS SUMMARY | 2021-11-06 20:40 | XMS_ITS | Encounter Summary ---
:1975 Author Organization [facility] Address [address] [address] Care Team Providers Name Role Phone Mary Kay Lr APRN, CNP Primary Care Provider [phone] Reason for Visit Reason Comments RESULTS, TEST 12/22 left breast biopsy Encounter Details Date Type Department Care Team Description 12/26/2019 Telephone [facility] Thor Parker, RESULTS, TEST (12/22 [place] MARQUES Muller CNP left breast biopsy) [address] [facility] [address] [place] [address] [place] [address] [phone] (Wo rk) Social History Tobacco Use Types [...] documented as of this encounter Nursing Notes Yohana Ballesteros APRN, CNP - 12/26/2019 3:47 PM CST Phone call to patient with results of left breast biopsy from 12/22 with pathology of benign breast tissue. Radiologist recommends continuing surgical treatment of known breast cancer as planned. Patient has further questions about surgery after meeting with the plastic surgery. Dr. Perez will be notified of patient's wish for a call back. Patient verbalized understanding. Yohana Parker APRN, CHRISTA 12/26/2019, 3:47 PM F PILOT documented in this encounter Plan of Treatment Not on filedocumented as of this encounter Visit Diagnoses Not on filedocumented in this encounter Care Teams Tow Motor Driver Relationship Specialty Start Date End Date Mary Kay Lr APRN, GLOBAL CLINICAL LEADER PCP - General Nurse Practitioner 12/01/17 04/23/21 [address] [place] [address] documented as of this encounter
--- OUTSIDE RECORDS SUMMARY | 2021-11-06 20:40 | XMS_ITS | Encounter Summary ---
:1975 Author [facility] Address [address], [place] [address] Care Team Providers Name Role Phone Mary Kay Lr APRN, CNP Primary Care Provider [phone] Encounter Details Date Type Department Care Team Description 01/09/2020 Notes/Orders [facility] Vance Martinez MD [place] at [address] [place] [address] [phone] Social History Tobacco Use Types Packs/Day Years Used Date Smoking Tobacco: Never Smokeless Tobacco: Never Alcohol Use Standard Drinks/Week Comments Yes 7 (1 standard drink = 0.6 oz pure alcoho l) Alcohol Habits Answer Date Recorded How often do you have a drink containing 4 or more times a w [place] 02/01/2020 alcohol? How many drinks containing alcohol [...] on filedocumented in this encounter Care Teams Disk Sharpener Relationship Specialty Start Date End Date Mary Kay Lr, MARQUES, MATRIX WORKER PCP - General Nurse Practitioner 12/01/17 04/23/21 [address] [place] [address] documented as of this encounter
--- OUTSIDE RECORDS SUMMARY | 2021-11-06 20:40 | XMS_ITS | Encounter Summary ---
:1975 Author Organization [facility] Address [address] [place] [address] Care Team Providers Name Role Phone Mary Kay Lr APRN, MEDICAID BILLER Primary Care Provider [phone] Reason for Visit Reason Comments Video Visit Encounter Details Date Type Department Care Team Description 01/11/2020 [facility] Mike Hicks Asy mptomatic HIV infection (HRC) (Primary Dx); 401 Infectious MD Encounter for long-term (current) use of medications Disease [address] [place] [id number] Social History Tobacco Use Types Packs/Day Years Used Date Smoking Tobacco: Never Smokeless Tobacco: Never Alcohol Use Standard Drinks/Week Comments Yes 7 (1 standard drink = 0.6 oz pure alcoho l) Alcohol Habits Answer Date Recorded How often do you have a drink containing 4 or more times a w [place] 02/01/2020 alcohol? How many drinks containing alcohol do you have Not asked on a typical day when you are drinking? How often do you have six or more drinks on one Not asked occasion? Comment: Not asked Sex Assigned at Date Recorded Not on file documented as of this encounter Progress Notes Mike Hicks MD - 01/11/2020 9:10 AM CST This patient comes in for follow up for HIV. History of present illness This patient is a 43-year-old generally healthy female who required a life [...] has been diagnosed with breast cancer. She will have a unilateral mastectomy in February. She will have reconstruction at that time. She would then find out if she requires anychemotherapy or radiation. She denies any fevers or chills. No night sweats. Her weight has been stable. She has a good appetite. No abdominal pain or diarrhea. She has not contracted COVID. Social history She lives in [place] with her . 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 Theyhave dogs and cats at home. She also has a horse at a different site. 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 They do not have any children. No tobacco use. She drinks a glass of wine every evening. No illegal drugs. No IV drug abuse. No recent travel. She previously has spenttime in [place], [place], [place] and [place]. She took a trip to the [place] a few years ago. 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 Patient Active Problem List Diagnosis ??? S/P hysterectomy ??? Asthma ??? Plantar fasciitis ??? Asymptomatic HIV infection (HRC) ??? Non-seasonal allergic rhinitis due to pollen ??? Malignant neoplasm of overlapping sites of right breast in female, estrogen receptor positive (HRC) ??? Invasive lobular carcinoma of right breast, stage 1 (HRC) Family history Her grandmother had amyotrophic lateral [...] immune Component Latest Ref Rng & Units 12/21/2019 T3 % 62.1 - 85.0 % 79.1 T3 Absolute 500-2,544 /UL 1,232 T4 % 31.6 - 65.7 % 47.1 T4 Absolute 337-1,687 /UL 734 T8 % 10.0 - 40.0 % 33.5 T8 Absolute 140 - 907 /UL 521 T4/T8 Ratio 0.8 - 3.7 1.4 Viral load is undetectable A/P 43-year-old female with HIV, detected on a life insurance exam, confirmed on testing through [facility] She is tolerating treatment with biktarvy well. She has obtained full viral suppression with a CD4 count of 734. No recent infections. She has had a hysterectomy so will not become . Breast cancer This was found on routine mammogram. She will have surgery and reconstruction in February. We will await findings to determine if chemotherapy or radiation will be needed. PLAN: Continue biktarvy Await results from the breast cancer surgery in February Follow-up in 6 months with labs prior to the visit Greater than 25 minutes are spent in review of the chart and in discussion with the patient. Mike Hicks MD 01/11/2020 Y CUTTER HAND documented in this encounter Plan of Treatment Not on filedocumented as of this encounter Visit Diagnoses Diagnosis Asymptomatic HIV infection (HRC) - Prima ry Asymptomatic human immunodeficiency viru s (HIV) infection status Encounter for long-term (current) use of medications Encounter for long-term (current) use of other medications documented in this encounter Care Teams Mr Teacher Relationship Specialty Start Date End Date Mary Kay Lr, FINANCIAL CONTROLLER, MEDICAID BILLER PCP - General Nurse Practitioner 12/01/17 04/23/21 [address] [place] [address] documented as of this encounter
--- OUTSIDE RECORDS SUMMARY | 2021-11-06 20:40 | XMS_ITS | Encounter Summary ---
:1975 Author Organization [facility] Address [address] [place] [address] Care Team Providers Name Role Phone Deepjordan Mary Kay Pitt APRN, WELT SEWER Primary Care Provider [phone] Reason for Visit Reason Comments LAB RESULTS Encounter Details Date Type Department Care Team Description 02/29/2020 Telephone [facility] Monica Lorenzo, LAB RESULTS Gynecology Physician s [address] [place], [place] [address] [place] [address] [phone] (Wo rk) Social History Tobacco Use Types Packs/Day Years Used Date Smoking Tobacco: Never Smokeless Tobacco: Never Alcohol Use Standard Drinks/Week Comments Yes 7 (1 standard drink = 0.6 oz pure alcoho l) Alcohol Habits Answer Date Recorded How often do you have a drink containing 4 or more times a w [place] 02/01/2020 alcohol? How many drinks containing alcohol do you have Not asked on a typical day when you are drinking? How often do you have six or more drinks on one Not asked occasion? Comment: Not asked Sex Assigned at Date Recorded Not on file documented as of this encounter Nursing Notes Sari Clay RN - 02/29/2020 4:01 PM CST Component Latest Ref Rng & Units 02/29/2020 Gardnerella Negative Positive (A) Lexi Negative Negative Trich Vaginalis Negative Negative Cristiana Castillo is a 45 y.o. year old female who had BD Affirm result done on 02/29/20 that is positive for clue cells and/or Garnderella cells only. Was patient treated for this result during the office visit? No, patient was not already treated forthis positive result. RN will continue with standing order. All wet prep/BD Affirm test results reviewed, and testing is positive for clue cells and/or for Gardnerella cells only. RN will continue with standing order. No Known Allergies RN informed patient of positive Bacterial Vaginosis results and can treat patient per standing order. See treatment section for prescription order. RN provided the following patient education: ?? Follow up appointment with clinician is recommended if symptoms do not improve within 7 days. ?? It is important to finish full course of medication. ?? Do not consume alcohol if using Metronidazole and for 48 hours following completion. Interaction with alcohol may cause vomiting. ?? Call back to the clinic if symptoms worsen, or any additional questions/concerns. Rx was sent to her preferred pharmacy. Sari Clay RN OW DRAPER documented in this encounter Plan of Treatment Not on filedocumented as of this encounter Visit Diagnoses Diagnosis Bacterial vaginosis - Primary Vaginitis and vulvovaginitis, unspecifie d documented in this encounter Care Teams Life Teacher Relationship Specialty Start Date End Date Mary Kay Lr, NEONATAL NURSE PRACTITIONER, WELT SEWER PCP - General Nurse Practitioner 12/01/17 04/23/21 [address] [place] [address] documented as of this encounter
--- OUTSIDE RECORDS SUMMARY | 2021-11-06 20:40 | XMS_ITS | Encounter Summary ---
:1975 Author Organization [facility] Address [address], [place] [address] Care Team Providers Name Role Phone Mary Kay Lr APRN, CLIENT DEVELOPMENT CONSULTANT Primary Care Provider [phone] Reason for Visit Auth/Cert Specialty Diagnoses / Procedures Referred By Contact Refer red To Contact Diagnoses Invasive lobular carcinoma of right breast, stage 1 (HRC) . Procedures RIGHT NIPPLE SPARING MASTECTOMY AND SENTINEL LYMPH NODE BIOPSY ON RIGHT RECONSTRUCTION BREAST WITH INSERTION IMPLANT Referral ID Status Reason Start Date Expiration Date Visits Requ ested Visits Authorized [id number] 1 1 Encounter Details Date Type Department Care Team Description 02/15/2020 Surgery [facility] Operating Room Briana Perez RIGHT NIPPLE SPARING [address] [facility]. JO Ha, [facility] MASTECTOMY [place] S[place] [address] [address] [facility] LYMPH NODE BIOPSY ON [phone] [place], [place] [address] RIGHT AXILLA [phone] (Wo rk) Social History Tobacco Use Types [...] Sign Reading Time Taken Comments Blood Pressure 118/79 02/15/2020 9:42 AM DOCK MANAGER Pulse 61 02/15/2020 9:42 AM DOCK MANAGER Temperature 36.5 ??C (97.7 ??F) 02/15/2020 9:42 AM DOCK MANAGER Respiratory Rate 16 02/15/2020 9:42 AM DOCK MANAGER Oxygen Saturation 100% 02/15/2020 9:42 AM DOCK MANAGER Inhaled Oxygen Concentration - - Weight 59 kg (130 lb) 02/15/2020 9:42 AM DOCK MANAGER Height 170.2 cm (5' 7) 02/15/2020 9:42 AM DOCK MANAGER Body Mass Index 20.36 02/15/2020 9:42 AM DOCK MANAGER documented in this encounter Discharge Instructions Discharge InstructionsAnnabella Gold RN - 02/15/2020 4:38 PM CST Images from the original note were not included. CONTACT INFORMATION If it is after hours call the Careline at [phone]. [facility] Surgery: Please contact your clinic during regular business hours or in case of an Emergency dial 911. [facility], ANESTHESIA Today you received General/Minor Sedation: Rest [...] as the mastectomy. Follow-up care is a lee part of [...] while you go through treatment. Call the [employer] ( ) or visit its [...] or dog food bags, or a vacuum sack cleaner. ? Ask your doctor when you [...] your doctor if you can take an eqvs-fpk-nlnclgc medicine. ? If your doctor prescribed antibiotics, [...] can you learn more? 1. Go to https://[employer]/Prism Digitallibrary or [employer]/Boraccilibrary. 2. Enter S340 in the search box. Current as of: September 29, 2018?Content Version: 12.4 ?? [employer]. Care instructions adapted under license by your healthcare professional. If you have questions abouta medical condition or this instruction, always ask your healthcare professional. [employer] disclaims any warranty or liability for your use of this information. MANAGER Discharge Instr - Helene Mccarthy RN - 02/15/2020 2:53 PM CST Call [...] take medication by mouth because of vomiting. MANAGER documented in this encounter Medications at Time [...] this encounter Progress Notes Briana Perez MB, [facility] - 02/15/2020 5:18 PM CST Pathology results were given to the patient over the phone. All questions were answered. Dr. Martinez - would you like us to request an oncotype or do you like to do that? JO Bauman, [facility] 02/22/2020, 4:12 PM MANAGER documented in this encounter Procedure Notes Stephanie Soto MD - 02/15/2020 5:18 PM CST CRISTIANA CASTILLO [facility]: [id number] OPERATIVE REPORT DATE OF SURGERY: 02/15/2020 : [...] antibiotic irrigation and placed reference number [id number], [id number]. It was wrapped with a 16 x [...] AND PACKS: Correct. STEPHANIE SOTO MD CAH/MODL /[id number] MANAGER Mary Kay Gold MD - 02/15/2020 1:[address] [facility] Brief Operative Progress Note Surgery Date: 02/15/2020 Surgeon(s) and Role: Panel 1: * Briana Perez MB, [facility] - Primary Panel 2: * Stephanie Soto [...] node, sentinel SURGICAL PATHOLOGY Briana Perez MB, [facility] 02/15/2020 1056 2 : RIGHT AXILLARY SENTINAL LYMPH NODE #2 HOT AND BLUE Tissue Lymph node, sentinel SURGICAL PATHOLOGY Briana Perez MB, [facility] 02/15/2020 1100 3 : Biopsy Tissue Nipple, right SURGICAL PATHOLOGY Briana Perez MB, [facility] 02/15/2020 1159 4 : Short stitch superior, long stitch lateral, white stitch retroaereolar tissue-fresh for margins Tissue Breast, right SURGICAL PATHOLOGY Briana Perez MB, [facility] 02/15/2020 1223 5 : Anterior superior margin 12 o'clock; stitch muro new margin Tissue Breast, right SURGICAL PATHOLOGY Briana Perez MB, [facility] 02/15/2020 1230 6 : New anterior margin 3 o'clock-stitch muro new margin Tissue Breast, right SURGICAL PATHOLOGY Briana Perez MB, [facility] 02/15/2020 1259 7 : New anterior margin 6 o'clock-stitch muro new margin Tissue Breast, right SURGICAL PATHOLOGY Briana Perez MB, [facility] 02/15/2020 1303 Complications / Findings: No complications. See full op note for findings. Also see Plastics op notefor reconstructive portion of procedure. Mary Kay Gold MD General Surgery PGY1 MANAGER Briana Perez MB, [facility] - 02/15/2020 1:[address] [facility] Operative Note Surgery Date: 02/15/2020 ATTENDING SURGEON: JO Baumna, [facility] ASSISTANTS: Mary Kay Gold PREOPERATIVE DIAGNOSIS: right [...] [facility] There was no additional posterior tissue as I had taken the breast off including pec fascia atthe 3:00 site so an additional posterior margin was not taken. The case was then transitioned to Dr. Soto for the reconstructive portion. The complexity of [...] scrubbed for the entire procedure. JO Bauman, [facility] 02/15/2020, 1:15 PM MANAGER documented in this encounter Plan of Treatment Not on filedocumented as of this encounter Procedures Procedure Name Priority Date/Time Associated Comments Diagnosis SURGICAL PATHOLOGY Routine 02/15/2020 10:56 Invasive lobular R esults for this AM DOCK MANAGER carcinoma of right procedure are in breast, stage 1 the results (HRC) section. RECONSTRUCTION BREAST 02/15/2020 10:03 Invasive lobula r WITH INSERTION IMPLANT AM DOCK MANAGER carcinoma of right breast, stage 1 (HRC) MASTECTOMY WITH 02/15/2020 10:03 Invasive lobular SENTINEL LYMPH NODE AM DOCK MANAGER carcinoma of right BIOPSY breast, stage 1 (HRC) documented in this encounter Results Surgical Path (02/15/2020 10:56 AM DOCK MANAGER) Component Value Ref Test Analysis Performed Pathologis t Range Method Time At Signature Case Report Surgical Pathology ?Case: [id number] ? 02/21/2020 [facility] Authorizing Provider: ??Briana Tinoco, ?? Collected: ? 02/15/2020 1056 ? 5:45 PM HOSPITA L ? MB, BCh ? DOCK MANAGER Ordering Location: ? [facility] Operating Room ?Received: ?02/15/2020 1106 ? Pathologist: ? Radha Truong, ? Specimens: ?? A) - Lymph nod e, sentinel, RIGHT AXILLARY SENTINAL LYMPH NODE #1 HOT ? B) - Lymp h node, sentinel, RIGHT AXILLARY SENTINAL LYMPH NODE #2 HOT AND BLUE ? C) - Nipp le, right, Biopsy ? D) - [address], right, Short stitch superior, long stitch lateral, white stitch ? retroaere olar tissue-fresh for margins ? E) - [address] [facility], right, Anterior superior margin 12 o'clock; stitch muro new margin ? F) - [address] [facility], right, New anterior margin 3 o'clock-stitch [...] D. Breast, right, mastectomy: Invasive lobular carcinoma Pat grade 2 Size of the tumor is [...] BREAST: COMPLETE EXCISION - All Specimens) 02/21/2020 [facility] 5:45 [facility] 8th Edition - Protocol posted: 04/06/2019 DOCK MANAGER SPECIMEN ?? Procedure: ?Total mastectomy ?? Specimen [...] Lymph Nodes Examined: ?2 ? Number of [place] Nodes Examined: ?2 PATHOLOGIC STAGE CLASSIFICATION (pTNM, AJCC 8th Edition) ? Primary Tumor (pT): ?pT1c ?? Regional Lymph Nodes Modifier: ?(sn): [place] node( s) evaluated. ?? 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 Clinical Invasive lobular 02/21/2020 [facility] Information carcinoma of 5:45 PM HOSPITAL right breast, DOCK MANAGER stage 1 (HRC) Microscopic Microscopic 02/21/2020 [facility] Description examination is 5:45 PM HOSPITAL performed. DOCK MANAGER Gross Description A. Lymph node, sentinel, RIG [...] and entirely submitted in one cassette. EO DOCK MANAGER B. Lymph node, sentinel, RIGHT AXILLARY SENTINAL [...] PM, 02/15/2020 INTRAOPERATIVE CONSULTATION: Performed TISSUE SUBMISSION: Sand Mill Operator Core Sand sections are submitted in 18 cassettes. 1-4. 3:00 tumor, entirely elizalde bmitted from medial to lateral with perpendicular anterior superior and posterior margins 5. Perpendicular anterior inferior margin closest to tumor 6. 6:00 medial inferior 7. 6:00 medial posterior 8. 6:00 central inferior 9. 6:00 central posterior 10. 6:00 lateral inferior 11. 6:00 lateral posterior 12-13. Sand Mill Operator Core Sand sections from 12:00 14. Upper outer quadrant [...] black, opposite surface -- green FIBROUS TISSUE: Medanales-white, smooth and glistening, less than 5% fibrous [...] black, opposite surface -- green FIBROUS TISSUE: Medan[place]-white, smooth and glistening, less than 5% fibrous [...] called into OR10 by [facility] at 12:40 PM, 02/15/2020) 5:45 PM HOSPITAL DOCK MANAGER Embedded Images 02/21/2020 [facility] 5:45 PM HOSPITAL DOCK MANAGER Specimen Anatomical Collection Method Collection Time Receive d Time (Source) Location / / Volume Laterality Tissue SENTINEL LYMPH 02/15/2020 10:56 NODE BIOPSY / AM DOCK MANAGER 11:06 AM DOCK MANAGER Unknown Tissue specimen SENTINEL LYMPH 02/15/2020 11:00 2020 (specimen) NODE BIOPSY / AM DOCK MANAGER 11:06 AM DOCK MANAGER Unknown Tissue specimen STRUCTURE OF RIGHT 02/15/2020 11:59 (specimen) NIPPLE / Unknown AM DOCK MANAGER 12:08 PM CS T Tissue specimen BREAST STRUCTURE / 02/15/2020 12:23 (specimen) Unknown PM DOCK MANAGER 12:32 PM DOCK MANAGER Tissue specimen BREAST STRUCTURE / 02/15/2020 12:30 1:05 (specimen) Unknown PM DOCK MANAGER PM DOCK MANAGER Tissue specimen BREAST STRUCTURE / 02/15/2020 12:59 1:05 (specimen) Unknown PM DOCK MANAGER PM DOCK MANAGER Tissue specimen BREAST STRUCTURE / 02/15/2020 1:03 PM 02/15/2020 1:09 (specimen) Unknown DOCK MANAGER PM DOCK MANAGER Briana OSORIO, [facility] LAB PATHOLOGY Performing Organization Address City/State/ZIP Code [facility] [place] [address] documented in this encounter Visit Diagnoses Diagnosis Invasive lobular carcinoma of right [address], stage 1 (HRC) - Primary Invasive lobular carcinoma of right [facility], stage 1 (HRC) Plan of Care - Breana Sousa RN - 02/15/2020 3:45 PM CST I completed a full assessment and assessments as ordered and per policy on this patient during my work shift. Reassessments completed during my work shift are unchanged unless documented. MANAGER Plan of Care - Dillon Sequeira RN - 02/15/2020 9:19 AM CST Patient states that she has had a hysterectomy in her past, no UPT needed. Dillon Sequeira RN MANAGER documented in this encounter Admitting Diagnoses Diagnosis [...] bupivacaine 1.3% (PF) Given 02/15/2020 1:22 PM DOCK MANAGER 20 mL Right Breast Fold (EXPAREL) liposomal injection ONCE PRN, Starting on Thu02/15/20 at 1311, Until Thu02/15/20 at 191, Intra-op ceFAZolin (ANCEF) 2 g, gentamicin 160 mg Given 02/15/2020 11 :04 AM DOCK MANAGER 1,000 mL in sodium chloride for irrigation [...] (SUBLIMAZE) injection 25-50 mcg 25-50 mcg, Intravenous, [id number], Pain, Starting on Thu02/15/20 at 1341, Until Thu02/15/20 at 1918, 25 mcg IV q5min prn base d [...] Thu02/15/20 at 1341, Until Thu02/15/20 at 191, PACU USE ONLY 0.2 mg IV q10min [...] (NORMODYNE) injection 5 mg 5 mg, Intravenous, [id number], Blood Pressure >, Startin g on Thu02/15/20 at 1341, Until Thu02/15/20 at 1918, Must call teddy thecameron before initiating medication. Give q 5 minutes PRN up to 25 mg. (PACU use only), PACU (only ) lactated ringers infusion Intravenous, at 30 mL/hr, CONTINUOUS, Starting on Thu02/15/20 at 0930, Pre-op lactated ringers infusion Started 02/15/2020 9:57 AM DOCK MANAGER 30 mL/hr 30 mL/hr 30 mL/hr, Intravenous, [...] (5 mg/mL) Given 02/15/2020 1:2 2 PM DOCK MANAGER 1 mL injection ONCE PRN, Starting on [...] povidone-iodine (BETADINE) 10 Given 02/15/2020 1:22 PM DOCK MANAGER 25 mL Right Breast Fold % topical liquid ONCE PRN, Starting on Thu02/15/20 at 1322, Intra-op documented in this encounter Active and Recently Administered Medications Times are shown in DOCK MANAGER. Scheduled Medication Order 02/13/2020 02/14/2020 02/15/2020 bupivacaine 1.3% (PF) (EXPAREL) liposomal injection 20 mL 20 mL, Injection, ONCE (NON-SCHEDULED), Starting Thu02/15/20 at 0942, For 1 dose, DO NOT GIVE IV ceFAZolin (ANCEF) 2 g in dextrose 50 mL IVPB (COMPLETED) 1041 (Given - Provider: Emma Alaniz, DIRECTOR OF PATIENT FINANCIAL SERVICES, SENIOR CLINICAL DATA ANALYST) 2 g, Intravenous, Administer over 30 Min [...] (SUBLIMAZE) injection 25-50 mcg 25-50 mcg, Intravenous, [id number], Pain, Starting Thu02/15/20 at 1341, 25 mcg [...] mg/dl give 4 units and call anest hesia, PACU (only) labetalol (NORMODYNE) injection 5 mg 5 mg, Intravenous, [id number], Blood Press ure >, Starting Thu02/15/20 at [...] Intra-op documented in this encounter Care Teams Housekeeping/Laundry Relationship Specialty Start Date End Date Mary Kay Lr, DIRECTOR OF PATIENT FINANCIAL SERVICES, CLIENT DEVELOPMENT CONSULTANT PCP - General Nurse Practitioner 12/01/17 04/23/21 [address] [place] [address] documented as of this encounter
--- OUTSIDE RECORDS SUMMARY | 2021-11-06 20:40 | XMS_ITS | Encounter Summary ---
:1975 Author Organization [employer] Address [address], [place] [address] Care Team Providers Name Role Phone Mary Kay Lr APRN, ASSISTANT FRONT OFFICE MANAGER Primary Care Provider [phone] Reason for Visit Reason Onset Date Comments Revisit ROUTINE, FOLLOW-UP 03/12/2020 Encounter Details Date Type Department Care Team Description 03/05/2020 Office Visit [facility] [place] following surgery [address] [place] [address] (Primary Dx) [address] [place] [address] [id number] Social History Tobacco Use Types Packs/Day Years Used Date Smoking Tobacco: Never Smokeless Tobacco: Never Alcohol Use Standard Drinks/Week Comments Yes 7 (1 standard drink = 0.6 oz pure alcoho l) Alcohol Habits Answer Date Recorded How often do you have a drink containing 4 or more times a w muckleshoot 02/01/2020 alcohol? How many drinks containing alcohol do you have Not asked on a typical day when you are drinking? How often do you have six or more drinks on one Not asked occasion? Comment: Not asked Sex Assigned at Date Recorded Not on file documented as of this encounter Patient Instructions Patient InstructionsPallavi Phoenix RN - 03/05/2020 4:30 PM CST Care Of Your Drain Sites Post Removal: You had some, or all, of your drains removed at today???s office visit. Please take a moment to review the information below for at home care of the sites. Drainage: Bacitracin with a light dressing was placed at the site of the drain at your office visit today. It is normal to expect some additional drainage from the site of the drain over the next 24-72 hours. This drainage may range from a slight oozing to saturation of gauze pads several times a day. It is beneficial for this fluid to drain and not remain within the surgical site. Shower: You may shower 24 hours after the drains are removed. Remove the dressing prior to showering and letsoap and water run over the site. Do not rub or scrub the area vigorously. Dressing: You should change the dressing 1-2 times daily, more frequently if drainage is higher and gauze pad is saturated. A small amount of Bacitracin, Neosporin, or other triple antibiotic ointment should be placed over the drain site and a light gauze pad dressing should be placed over the top. Avoid the use of adhesive bandages as they can begin to cause irritation to the skin if used for prolonged duration. Your drain site(s) should close within 3-5 days. Please contact the clinic immediately if you noticea change in the drainage color (cloudy, yellow, or green), redness at the site, warmth, swelling around the drain site, or fever greater than 101 degrees. Cosmetic and Plastic Surgeons [facility] [address] [place] [address] [place] [address] [phone] ATING SYSTEMS SPECIALIST documented in this encounter Progress Notes Stephanie Soto MD - 03/05/2020 4:30 PM CST F/u after breast recon. Drainoutput finally lower Exam Incision healing Mild rippling Drain removed Plan F/u in 2-3 weeks Cont activity restrictions ATING SYSTEMS SPECIALIST documented in this encounter Plan of Treatment Not on filedocumented as of this encounter Visit Diagnoses Diagnosis Follow-up examination following surgery - Primary Follow-up examination, following unspeci fied surgery documented in this encounter Care Teams Canine Deputy Relationship Specialty Start Date End Date Mary Kay Lr, WAX PATTERN ASSEMBLER, ASSISTANT FRONT OFFICE MANAGER PCP - General Nurse Practitioner 12/01/17 04/23/21 [address] [place] [address] documented as of this encounter
--- OUTSIDE RECORDS SUMMARY | 2021-11-06 20:40 | XMS_ITS | Encounter Summary ---
:1975 Author Organization [facility] Address [address] [address] Care Team Providers Name Role Phone Mary Kay Lr APRN, CNP Primary Care Provider Reason for Visit Reason Comments Future Appointments Encounter Details Date Type Department Care Team Description 02/26/2020 Telephone [facility] Mary Kay Lr, Future Appointments Practice CHRISTA MOHAN [address] [place], [place] [address] [place], [place] [phone] (Wo rk) Social History Tobacco Use Types Packs/Day Years Used Date Smoking Tobacco: Never Smokeless Tobacco: Never Alcohol Use Standard Drinks/Week Comments Yes 7 (1 standard drink = 0.6 oz pure alcoho l) Alcohol Habits Answer Date Recorded How often do you have a drink containing 4 or more times a w lime 02/01/2020 alcohol? How many drinks containing alcohol do you have Not asked on a typical day when you are drinking? How often do you have six or more drinks on one Not asked occasion? Comment: Not asked Sex Assigned at Date Recorded Not on file documented as of this encounter Nursing Notes Cherelle Lyles, RN - 02/27/2020 11:07 AM CST Spoke with pt, she has vaginal itching, no other symptoms. She does have a history of frequent yeastand BV, cannot treat per standing order. She was offered visit today at 1:00, she can't make this. She accepts visit on 02/28 Cherelle Lyles RN 02/27/2020, 11:08 AM LAYER MERCHANDISE Arlene Arriola - 02/26/2020 12:40 PM CST Symptoms [Appt Center: If this call is after 3 p.m., communicate to patient: If we are not able to get back to you by the end of the day and your symptoms worsen, please contact the Careline at [phone] OR at .] Describe your symptoms (if pain, include location): VAGINAL ITCHING, AFTER ANTIBIOTIC. REOCCURRING When did they start? 02/23 What have you tried at home (please specify medication name, if any)? BAKING SODA SOAK Have you recently been seen for this? Yes: For this medication, patient would like it filled at the pharmacy listed in Meds & Orders. [Crew Manager/Appt Center: Verify the pharmacy patient would like to use for this request is highlighted in blue in Pharmacy Selection under Meds & Orders] Is it okay to leave a detailed message on your voicemail? Yes Is there anything else I can help you with today? Arlene Arriola LAYER MERCHANDISE documented in this encounter Plan of Treatment Not on filedocumented as of this encounter Visit Diagnoses Not on filedocumented in this encounter Care Teams Window And Siding Craftsman Relationship Specialty Start Date End Date Mary Kay Lr, MEMORY CARE PROGRAM RESIDENT, UKRAINIAN FOLK ARTS INSTRUCTOR PCP - General Nurse Practitioner 12/01/17 04/23/21 [address] [place] [address] documented as of this encounter
--- OUTSIDE RECORDS SUMMARY | 2021-11-06 20:40 | XMS_ITS | Encounter Summary ---
:1975 Author Organization [employer] Address [address], [place] [address] Care Team Providers Name Role Phone Mary Kay Lr APRN, SHEET ROLLER OPERATOR Primary Care Provider [phone] Reason for Referral Therapies (Routine) - Closed Specialty Diagnoses / Procedures Referred By Contact Refer red To Contact Diagnoses Invasive lobular carcinoma of breast, stage 1, right (HRC) Briana Perez MB, [address] [address] Referral ID Status Reason Start Date Expiration Date Visits Requ ested Visits Authorized [id number] Closed 02/27/2020 02/26/2021 999 999 Scheduling Instructions Your provider has recommended an appoint ment with a [facility] Lymphedema Therapist. Please stop at the clinic check out desk for assistance with scheduling or if you prefer to call for your appointment you may call [facility] Outpatient Rehabilitation at [phone]. FORM MATERIAL HANDLER MANAGER Reason for Visit Reason Comments Video Visit post op 02/14 right nipple-spa ring mastectomy with reconstruction and right SN bx, ILC Encounter Details Date Type Department Care Team Description 02/27/2020 Telemedicine [facility] Breast [facility] Briana Perez Inv [facility] Center JO Ha, [facility] carcinoma of breast, [address] [place] [address]. [address] [place] [address] stage 1, right (HRC) [place] [address] [place], [place] (Primary Dx) [phone] [id number] Social History Tobacco Use Types Packs/Day Years Used Date Smoking Tobacco: Never Smokeless Tobacco: Never Alcohol Use Standard Drinks/Week Comments Yes 7 (1 standard drink = 0.6 oz pure alcoho l) Alcohol Habits Answer Date Recorded How often do you have a drink containing 4 or more times a w [place] 02/01/2020 alcohol? How many drinks containing alcohol do you have Not asked on a typical day when you are drinking? How often do you have six or more drinks on one Not asked occasion? Comment: Not asked Sex Assigned at Date Recorded Not on file documented as of this encounter Patient Instructions Patient InstructionsVarsha Hodgson RN - 02/27/2020 9:45 AM CST Cristiana Castillo, It was a pleasure to speak with you today for your post-operative visit following your 02/15/20 right breast mastectomy with reconstruction and right sentinel node biopsy with final pathology of invasivelobular carcinoma. An appointment has been scheduled with the oncologist, Dr. Martinez on 03/19/20 at 2:30 pm at the [facility]. If you have any questions or need to change your appointment please contact them at . Dr. Perez would like you to meet with the Occupational Therapist to discuss lymphedema risk prevention. Please call [facility] [place] at [phone] to schedule an appointment. This should be scheduled for 1-3 weeks after your drains have been removed. Please schedule a 6 month follow up appointment with Dr. Perez. You may schedule by calling [phone]. Please keep your follow up appointment with your plastic surgeon for management of your reconstructive surgery. You are invited to attend the Breast Cancer Support Group. We meet on the thursday of the month from 6:00 - 7:30 pm at the [facility], [address] [place] [address], in the 4th floor Neurology waiting area. Free parking is available, no registration necessary. Please [phone] for more information. This group is on hold. You will receive a flyer when group resumes. Please contact The [facility] Nurse Practitioner at [phone] or the nurse at [phone] in the Breast Center with concerns or questions regarding your follow up care. [facility] regarding concerns or questions regarding your surgical incision or drains at [phone]. Thank you for allowing us to participate in your care. JO Andrade,[facility] FORM MATERIAL HANDLER MANAGER documented in this encounter Progress Notes Briana Perez MB, [facility] - 02/27/2020 9:45 AM CST 02/27/2020 S: The patient is a 45 y.o. female who recently underwent right nipple sparing mastectomy with sentinel lymph node biopsy for right breast ILC, ADH and abnormal enhancement on MRI. Since surgery she has done well. Her drain is still in place. She is following for Dr. Soto. Shedenies redness, purulent drainage, fevers or chills. She does not have any concerns regarding the incision/healing. Breast cancer summary - Diagnosed: 12/08/2019 - Surgery: Right mastectomy with SLNB - Tumor: pT1c - Margins: negative - Lymph nodes: pN0 (0/2) - Hormone receptors: ER positive, OH negative, Her2 negative - Stage: 1 O: There were no vitals filed for this visit. Physical Exam: Remainder of exam deferred as this was a video visit due to the COVID 19 pandemic PATHOLOGY: FINAL DIAGNOSIS A. Lymph node, sentinel, right [...] Breast, right, mastectomy: ?? Invasive lobular carcinoma Pat grade 2 ?? Size of the tumor [...] ?? No atypia or malignancy seen ?? A/P: The patient is a 45 y.o. female with stage 1 right breast cancer. - Doing well - Pathology report reviewed and released to [facility] - Discussed routine post-operative care - OT consult to discuss prevention of lymphedema - Follow up with oncology to discuss adjuvant treatments - Follow up with me in 6 months JO Bauman, [facility] 02/27/2020, 9:55 AM FORM MATERIAL HANDLER MANAGER documented in this encounter Plan of Treatment Scheduled Referrals Name Type Priority Associated Diagnoses Order S chedule Lymphedema Therapy Referral Routine Invasive lobular carci noma Ordered: 02/27/2020 of breast, stage 1, right (HRC) documented as of this encounter Visit Diagnoses Diagnosis Invasive lobular carcinoma of breast, st age 1, right (HRC) - Primary documented in this encounter Care Teams Bullet Maker Relationship Specialty Start Date End Date Mary Kay Lr, RN TELEPHONIC, SHEET ROLLER OPERATOR PCP - General Nurse Practitioner 12/01/17 04/23/21 [address] [place] [address] documented as of this encounter
--- OUTSIDE RECORDS SUMMARY | 2021-11-06 20:40 | XMS_ITS | Encounter Summary ---
:1975 Author Organization [employer] Address [address], [place] [address] Care Team Providers Name Role Phone Mary Kay Lr APRN, SUPERVISOR GRAIN AND YEAST PLANTS Primary Care Provider [phone] Reason for Visit Reason Comments Phone Visit discuss treatment plan for b reast cancer after second opinion Encounter Details Date Type Department Care Team Description 01/23/2020 Phone Visit [facility] Breast [facility] Briana Perez [facility] JO Ha, [facility] carcinoma of breast, [address] [facility]. [address] [facility] stage 1, right (HRC) [place] [address] [place], [place] (Primary Dx) [phone] [id number] Social History Tobacco Use Types Packs/Day Years Used Date Smoking Tobacco: Never Smokeless Tobacco: Never Alcohol Use Standard Drinks/Week Comments Yes 7 (1 standard drink = 0.6 oz pure alcoho l) Alcohol Habits Answer Date Recorded How often do you have a drink containing 4 or more times a w [place] 02/01/2020 alcohol? How many drinks containing alcohol do you have Not asked on a typical day when you are drinking? How often do you have six or more drinks on one Not asked occasion? Comment: Not asked Sex Assigned at Date Recorded Not on file documented as of this encounter Progress Notes Briana Perez MB, [facility] - 01/23/2020 10:45 AM CST I spoke with Cristiana today regarding plans for her upcoming surgery. She recently had a [facility] the [facility] and had some questions regarding the recommendations. We started with discussing the pathology review at the [facility]. The reported the invasive component as mixed ductal lobular where as our pathologist reported it as only lobular. I explained this difference can occur but it does not impact the recommended treatments. I will have our pathologists review her slides to try to clarify the differences. The [facility] pathology review also reported the area ofatypia as ALH where as our pathologists reported ADH. Again we will have them review the slides but this does not impact any of the recommended treatments. Next we discussed her MRI findings. The provider she saw at the [place] recommended proceeding with a biopsy of the abnormality at 12:00 on the MRI. The recommended that she is eligible for a lumpectomy and advised Cristiana the 12:00 site should be biopsied prior to surgery. I certainly agree with this recommendation if Cristiana chooses a lumpectomy. When we previously reviewed her MRI I recommended a mastectomy given the two know areas of abnormality (biopsy proven malignancy and atypia) along with the third area at 12:00. Based on her breast size, I felt that a lumpectomy may give a suboptimal cosmetic outcome. Today we discussed that both options are appropriate for breast cancer treatment and that the decision between a mastectomy vs lumpectomy is a personal choice for most women. I still think a mastectomymay give an improved cosmetic outcome for her based on the multiple sites of abnormality compared toher breast size. However, if she would like to try breast conservation that is certainly also acceptable. We discussed different approaches and I offered even a staged approach where we first proceed with breast conservation to obtain definitive diagnosis of the cancer and atypias. Depending on the final pathology/cosmetic outcome of the lumpectomy, she could then proceed with mastectomy at a later da te if she wishes to. We discussed the role of radiation for both lumpectomy and mastectomy. I explained the frequency of radiation and possible side effects including skin irritation, fatigue and further changes to the breast (increase or decreased in size, worsening indentation/scarring, future risks with reconstruction). After our discussion she demonstrated a good understanding. I am fully supportive of however she decides to proceed. She is still leaning towards a unilateral mastectomy with immediate reconstruction. She will call us with her decision in the next few days. A total of 45 minutes were spent on the phone with the patient and her partner discussing managementoptions for her right breast cancer diagnosis. JO Bauman, BCh 01/23/2020, 5:55 PM NO PORTER documented in this encounter Plan of Treatment Not on filedocumented as of this encounter Visit Diagnoses Diagnosis Invasive lobular carcinoma of breast, st age 1, right (HRC) - Primary documented in this encounter Care Teams Dietetics Teacher Relationship Specialty Start Date End Date Mary Kay Lr, PARK SUPERINTENDENT, SUPERVISOR GRAIN AND YEAST PLANTS PCP - General Nurse Practitioner 12/01/17 04/23/21 [address] [place] [address] documented as of this encounter
--- OUTSIDE RECORDS SUMMARY | 2021-11-06 20:40 | XMS_ITS | Encounter Summary ---
:1975 Author Organization [facility] Address [address] [place] [address] Care Team Providers Name Role Phone Mary Kay Lr APRN, PHYSIOTHERAPY AIDE Primary Care Provider [phone] Reason for Visit Procedure/Equipment (Routine) - Incomplete Specialty Diagnoses / Procedures Referred By Contact Refer red To Contact Diagnoses Malignant neoplasm of overlapping sites of right breast in female, estrogen receptor positive (HRC) Abnormal magnetic resonance imaging of left breast Briana Perez, Procedures MM Post-Bx Mammogram JO, [address] [address] Referral ID Status Reason Start Date Expiration Date Visits V isits Requested Authorized [id number] Incomplete 12/16/2019 03/16/2021 1 1 Encounter Details Date Type Department Care Team Description 12/23/2019 Ancillary Procedure [facility] Briana Perez Mal ignant neoplasm of overlapping sites of right breast in female, estrogen receptor positive (HRC); [facility] JO Ha, [facility] Abnormal magnetic resonance imaging of l eft breast [address] [place] [id number] [phone] Social History Tobacco Use Types Packs/Day Years Used Date Smoking Tobacco: Never Smokeless Tobacco: Never Alcohol Use Standard Drinks/Week Comments Yes 7 (1 standard drink = 0.6 oz pure alcoho l) Alcohol Habits Answer Date Recorded How often do you have a drink containing 4 or more times a w [place] 02/01/2020 alcohol? How many drinks containing alcohol do you have Not asked on a typical day when you are drinking? How often do you have six or more drinks on one Not asked occasion? Comment: Not asked Sex Assigned at Date Recorded Not on file documented as of this encounter Progress Notes Briana Perez MB, [facility] - 12/23/2019 8:00 AM CST Pathology results were reviewed with the patient over the phone. Left breast biopsy was benign. She is waiting on genetics to guide decision regarding bilateral vs unilateral mastectomies for her rightbreast cancer diagnosis. Has decided upon implant reconstruction and nipple sparing. Will schedule bilateral mastectomies at this time. All questions were answered. JO Bauman, [facility] 12/26/2019, 4:40 PM ODIAN SUPERVISOR documented in this encounter Plan of Treatment Not on filedocumented as of this encounter Procedures Procedure Name Priority Date/Time Associated Diagnosis Comme nts MM POST MAMMOGRAM Routine 12/23/2019 9:37 AM Malignant neoplas m Results for this LT CUSTODIAN SUPERVISOR of overlapping sites procedu re are in of right breast in the resul ts female, estrogen section. receptor positive (HRC) Abnormal magnetic resonance imaging of left breast SURGICAL PATHOLOGY, Routine 12/23/2019 9:36 AM Abnormal magnet ic Results for this BREAST CUSTODIAN SUPERVISOR resonance imaging of procedu re are in left breast the results section. documented in this encounter Results MM Post-Bx Mammogram Lt (12/23/2019 9:37 AM CUSTODIAN SUPERVISOR) Anatomical Region Laterality Modality Breast Left Mammography Specimen (Source) Anatomical Location Collection Method / Collectio n Time Received Time / Laterality Volume Addenda Addendum by Marjorie Newell MD on 020 4:58 PM CUSTODIAN SUPERVISOR Pathology reveals benign breast tissue. This is consistent with the imaging findings. A verbal report was gi durga to the patient. Patient to proceed with management of her known rig ht breast ILC. Impressions 12/23/2019 10:10 AM CUSTODIAN SUPERVISOR : MRI guided biopsy of a non-mass enhancem ent in the left breast. ??Pathology pending. Post procedure mammogram obtain ed for clip placement. Narrative 12/23/2019 10:10 AM CUSTODIAN SUPERVISOR LEFT BREAST VACUUM ASSISTED MRI GUIDED BIOPSY, [...] patient tolerated this w ell. Briana OSORIO, [facility] Surgical Path, Breast (12/23/2019 9:36 AM CUSTODIAN SUPERVISOR) Component Value Ref Test Analysis Performed Pathologis t Range Method Time At Signature Case Report Surgical Pathology ?Case: [id number] ? 12/26/2019 [facility] Authorizing Provider: ??Nicolasa Torres MD ?Collected: ? 12/23/2019 0936 ? 11:16 AM HOSPITA L Ordering Location: ? [facility] ?Received: ?12/23/2019 0943 ? CUSTODIAN SUPERVISOR ? Center ? Pathologist: ? Monique Tucker MD ? Specimen: ?Breast, left, 2:00 middle depth ? FINAL A. Breast, left, 2:00 middle depth, needle core biopsy: 12/26/2019 [facility] Electronically DIAGNOSIS Benign breast tissue with no significant pathologic ab normality. 11:16 AM [facility] signed by Garrett, Negative for atypia and malignancy. CUSTODIAN SUPERVISOR Monique Cervantes MD on See comment. 020 at 11:15 AM Comment: Sections show benig n breast tissue with no significant proliferative changes. Is not clear whether sampling represents the area of abnormality seen on MRI scanning; correlation is recommended to determine sampling adequacy. Dr. Jailene Dumont reviewed the slides and agreed with the int erpretation. Clinical Left Breast abnormal MRI enhancement [facility] Information 11:16 AM [facility] CUSTODIAN SUPERVISOR Microscopic Microscopic 12/26/2019 [facility] Description examination is 11:16 AM [facility] performed. CUSTODIAN SUPERVISOR Gross A. Breast, left, 2:00 middle depth. 12/10 [facility] Description The specimen is received in formalin and labeled with the patient's name and Breast, left, 2:00 middle depth. The specimen consists of 3.5 x 1.7 x 0.7 cm aggregate of multiple entangled and fragmented 11:16 AM [facility] spear-yellow cores of soft ti ssue. The specimen is inked yellow. The specimen was collected and placed in formalin at 9:00 AM, 12/23/2019. The specimen is entirely submitted in four cassettes. DT CUSTODIAN SUPERVISOR Embedded 12/26/2019 [facility] Images 11:16 [facility] CUSTODIAN SUPERVISOR Specimen Anatomical Collection Method Collection Time Receive d Time (Source) Location / / Volume Laterality Tissue BREAST STRUCTURE / 12/23/2019 9:36 AM 9:43 Unknown CUSTODIAN SUPERVISOR AM CUSTODIAN SUPERVISOR Nicolasa Pierson MD LAB PATHOLOGY Performing Organization Address City/State/ZIP Code Phon e Number [address] [address] MR Bx Breast Lt (12/23/2019 9:25 AM CUSTODIAN SUPERVISOR) Anatomical Region Laterality Modality Breast, Other Left Magnetic Resonance Specimen (Source) Anatomical Location Collection Method / Collectio n Time Received Time / Laterality Volume Addenda Addendum by Marjorie Newell MD on 020 4:58 PM CUSTODIAN SUPERVISOR Pathology reveals benign breast tissue. This is consistent with the imaging findings. A verbal report was gi durga to the patient. Patient to proceed with management of her known rig ht breast ILC. Impressions 12/23/2019 10:10 AM CUSTODIAN SUPERVISOR : MRI guided biopsy of a non-mass enhancem ent in the left breast. ??Pathology pending. Post procedure mammogram obtain ed for clip placement. Narrative 12/23/2019 10:10 AM CUSTODIAN SUPERVISOR LEFT BREAST VACUUM ASSISTED MRI GUIDED BIOPSY, [...] patient tolerated this w ell. Briana OSORIO, [facility] RAD MRI documented in this encounter Visit Diagnoses Diagnosis Malignant neoplasm of overlapping sites of right breast in female, estrogen receptor positive (HRC) Abnormal magnetic resonance imaging of l eft breast Malignant neoplasm of overlapping sites of right breast in female, estrogen receptor positive (HRC) Abnormal magnetic resonance imaging of l eft breast documented in this encounter Care Teams Thread Weaver Relationship Specialty Start Date End Date Mary Kay Lr, ACUTE CARE PHYSICIAN, PHYSIOTHERAPY AIDE PCP - General Nurse Practitioner 12/01/17 04/23/21 [address] [place] [address] documented as of this encounter
--- OUTSIDE RECORDS SUMMARY | 2021-11-06 20:40 | XMS_ITS | Encounter Summary ---
:1975 Author Organization [employer] Address [address] [place] [address] Care Team Providers Name Role Phone Mary Kay Lr APRN, CNP Primary Care Provider [phone] Reason for Visit Reason Comments SECOND OPINION Encounter Details Date Type Department Care Team Description 01/24/2020 Telephone [facility] Thor Parker, SECOND OPINION Center MARQUES Muller, CHRISTA [address] [address] [place] [address] [phone] (Wo rk) Social History Tobacco Use Types Packs/Day Years Used Date Smoking Tobacco: Never Smokeless Tobacco: Never Alcohol Use Standard Drinks/Week Comments Yes 7 (1 standard drink = 0.6 oz pure alcoho l) Alcohol Habits Answer Date Recorded How often do you have a drink containing 4 or more times a w [place] 02/01/2020 alcohol? How many drinks containing alcohol do you have Not asked on a typical day when you are drinking? How often do you have six or more drinks on one Not asked occasion? Comment: Not asked Sex Assigned at Date Recorded Not on file documented as of this encounter Nursing Notes Yohana Ballesteros APRN, CH[facility]STA - 01/25/2020 11:15 AM CST Phone call to patient. She asked when surgery would be if she saw Dr. Pacheco. Reviewed with Schedulers, next available surgery if schedule today would be 03/20. Patient concerned about length of time from diagnosis. If changed date would be 3 months or longer. Patient spoke with her and has decided to keep her surgery date on 02/[address] Perez and Dr. Soto. She also said she has decided on a unilateral- right side only mastectomy and reconstruction. Information will be given to Dr. Perez and Dr. Soto. Yohana Parker APRN, CNP 01/25/2020, 11:18 AM ITY ENGINEER MEDICAL DEVICE Yohana Ballesteros APRN, CNP - 01/25/2020 8:59 AM CST Phone call to patient. Left message. First available appointment is 02/[address] Pacheco. Asked she call back to let me know what she would like to do. Yohana Parker APRN, CNP 01/25/2020, 9:00 AM ITY ENGINEER MEDICAL DEVICE Yohana Ballesteros APRN, CNP - 01/24/2020 4:37 PM CST Phone message from patient. She is interested in a second opinion to discuss plastic surgery. She would like to see Dr. Pacheco. Will call to check on available appointments. Yohana Parker APRN, CNP 01/24/2020, 4:43 PM ITY ENGINEER MEDICAL DEVICE documented in this encounter Plan of Treatment Not on filedocumented as of this encounter Visit Diagnoses Not on filedocumented in this encounter Care Teams Bi Architect Relationship Specialty Start Date End Date Mary Kay Lr APRN, COLLEGE COUNSELOR PCP - General Nurse Practitioner 12/01/17 04/23/21 [address] [place] [address] documented as of this encounter
--- OUTSIDE RECORDS SUMMARY | 2021-11-06 20:40 | XMS_ITS | Encounter Summary ---
:1975 Author Organization [facility] Address [address] [place] [address] Care Team Providers Name Role Phone Mary Kay Lr APRN, CNP Primary Care Provider [phone] Reason for Visit Reason Comments PRE-OP EXAM Encounter Details Date Type Department Care Team Description 02/01/2020 Pre-Op Visit [place] [facility] Mary Kay Lr Mali gnant neoplasm of overlapping sites of right breast in female, estrogen receptor positive (HRC) (Primary Dx); Medicine CHRISTA MOHAN Invasive lobular carcinoma of right gala [address], stage 1 (HRC); [address] Asymptomatic HIV infection (HRC); [place], [place] [address] [place], [place] Preop examination [phone] [id number] Social History Tobacco Use Types Packs/Day Years Used Date Smoking Tobacco: Never Smokeless Tobacco: Never Alcohol Use Standard Drinks/Week Comments Yes 7 (1 standard drink = 0.6 oz pure alcoho l) Alcohol Habits Answer Date Recorded How often do you have a drink containing 4 or more times a w [place] 02/01/2020 alcohol? How many drinks containing alcohol do you have Not asked on a typical day when you are drinking? How often do you have six or more drinks on one Not asked occasion? Comment: Not asked Sex Assigned at Date Recorded Not on file documented as of this encounter Last Filed Vital Signs Vital Sign Reading Time Taken Comments Blood Pressure 124/74 02/01/2020 9:39 AM TECHNICAL OPERATIONS MANAGER Pulse 66 02/01/2020 9:39 AM TECHNICAL OPERATIONS MANAGER Temperature - - Respiratory Rate - - Oxygen Saturation - - Inhaled Oxygen Concentration - - Weight 59 kg (130 lb) 02/01/2020 9:39 AM TECHNICAL OPERATIONS MANAGER Height - - Body Mass Index 20.36 01/09/2020 1:32 PM TECHNICAL OPERATIONS MANAGER documented in this encounter Patient Instructions Patient InstructionsMary Kay Lr APRN, CNP - 02/01/2020 9:40 AM CST On the day of surgery please do not wear any hair product, including hair spray, gels, etc, and please bring all your medications with you on your day of surgery. If you have sleep apnea and have an oral appliance or CPAP equipment, bring your equipment to the hospital. Please, follow instructions for not taking anything by mouth the night before your procedure. However, some medications should not be held for surgery because they are beneficial, and some medications need special attention. Medications I recommend you take with a small sip of water up until surgery include: HIV medications Medications that require special changes include: herbals: stop 7 days before surgery NSAIDS (arthritis medications): stop 3 days before surgery. Tylenol is OK. . NICAL OPERATIONS MANAGER documented in this encounter Progress Notes Mary Kay Lr APRN, CNP - 02/01/2020 9:40 AM CST Pre-operative History and Physical Assessment Name: Cristiana Castillo : 1975 Primary physician: Mary Kay Lr APRN, CNP. Historical: Cristiana Castillo is a 45 y.o. old female is here for preoperative cardiac and risk evaluation. Patientis scheduled for Mastectomy on 02/15/[address] Perez at [facility]. Facility fax # is . Pertinent history: Invasive lobular carcinoma of right breast, stage 1 (HRC), Asymptomatic HIV, on biktarvy without interuptions. Additional concerns: Preoperative Screening Questions: Any problems with / history of... Tightening or pressure in chest with activity? no Waking at night with shortness of breath? no Swelling of feet or ankles recently? no Difficulty sleeping flat at night because of shortness of breath? no Troubled by shortness of breath when Walking on the level? Climbing a flight of stairs? no no Getting pains in the calf muscles when walking? no Chest sounds like wheezy or whistling? no Cough, runny nose, or cold symptoms currently? no A chronic cough? no Bleeding or clotting problems for you or close relatives? no Herbal supplements or medications not on the med list being taken? no Taking steroids or immunosuppressive medications. no Aspirin or NSAIDS taken in the last two weeks? no Anemia or taking iron pills? no Anesthesia complications for you or close relatives? no History of sleep apnea, loud snoring, daytime drowsiness or CPAP at home? no Heart attack in the last 30 days? no Recent memory problems (dementia)? no Is there a history of COPD(emphysema) or asthma? Yes. Is your breathing capacity with activity worsethan usual over the last month? no Medications: Current Outpatient Medications Medication Sig Dispense Refill ??? ALBUTEROL IN Inhale 1-2 puffs every 4 hours as needed. 17 PRN ??? BIKTARVY 50-200-25 MG tablet Take 1 Tablet by mouth daily. 90 Tablet 3 ??? LORATADINE OR ??? VITAMIN D, CHOLECALCIFEROL, OR Take 1 Capsule by mouth daily. No current facility-administered medications for this visit. Allergies: Patient has no known allergies. Patient Active Problem List Diagnosis ??? S/P hysterectomy ??? Asthma ??? Plantar fasciitis ??? Asymptomatic HIV infection (HRC) ??? Non-seasonal allergic rhinitis due to pollen ??? Malignant neoplasm of overlapping sites of right breast in female, estrogen receptor positive (HRC) ??? Invasive lobular carcinoma of right breast, stage 1 (HRC) Habits: Social History Tobacco Use ??? Smoking status: Never Smoker ??? Smokeless tobacco: Never Used Substance Use Topics ??? Alcohol use: Yes Alcohol/week: 7.0 standard drinks Types: 7 Glasses of wine per week Frequency: 4 or more times a week Past Surgical History: Procedure Laterality Date ??? HYSTERECTOMY 2011 with [facility] (in [place]) for endometriosis/cysts ??? TONSILLECTOMY Observed: Physical Examination: Vital Signs: BP 124/74 (BP Location: Right Arm, BP Cuff Size: Regular) Pulse 66 Wt 130 lb (59 kg) BMI 20.36 kg/m?? Estimated body mass index is 20.36 kg/m?? as calculated from the following: Height as of 01/09/20: 5' 7 (1.702 m). Weight as of this encounter: 130 lb (59 kg). General: ambulatory, well nourished, alert. HEENT: normal eyes, ears, throat, oropharynx Neck: Thyroid not enlarged. No bruits. No jugular venous distention Cardiovascular: regular rate and rhythm, normal S1 and S2 without murmur or click Chest/Lungs: clear to auscultation, no wheezes or rales Abdomen: Soft, non-tender, no masses, no hepatomegaly or splenomegaly. Extremities: No cyanosis, clubbing or edema. Pulses intact. Neurologic: Alert and oriented to person, place and time. Skin: No rash Data: Labs: Hemoglobin Date Value 12/21/2019 14.2 g/dL 09/22/2017 13.2 g/dl Creatinine Date Value 12/21/2019 0.70 mg/dL 09/22/2017 0.70 mg/dl Sodium (mmol/L) Date Value 02/29/2016 137 Potassium (mmol/L) Date Value 02/29/2016 3.7 ECG: not indicated for this procedure Assessment and Plan: Pre-op cardiac & risk evaluation: Patient is medically optimized for planned procedure. Cardiac risk for the planned procedure is LOW No active cardiac conditions. Low risk procedure - no additional cardiac evaluation is needed. Medication changes are listed in patient instructions below. Special risks: NONE Electronically Signed By: Mary Kay Lr APRN, CNP CC: NICAL OPERATIONS MANAGER documented in this encounter Plan of Treatment Not on filedocumented as of this encounter Visit Diagnoses Diagnosis Malignant neoplasm of overlapping sites of right breast in female, estrogen receptor positive (HRC) - Primary Invasive lobular carcinoma of right gala st, stage 1 (HRC) Asymptomatic HIV infection (HRC) Asymptomatic human immunodeficiency viru s (HIV) infection status Preop examination Preoperative examination, unspecified documented in this encounter Care Teams Outside Sales Associate Relationship Specialty Start Date End Date Mary Kay Lr APRN, CHRISTA PCP - General Nurse Practitioner 12/01/17 04/23/21 [address] [place] [place] [address] documented as of this encounter
--- OUTSIDE RECORDS SUMMARY | 2021-11-06 20:40 | XMS_ITS | Encounter Summary ---
:1975 Author Organization [employer] Address [address] [place] [id number] Care Team Providers Name Role Phone Mary Kay Lr APRN, FRONT LOADER RESIDENTIAL DRIVER Primary Care Provider [phone] Reason for Referral Procedure/Equipment (Routine) - Closed Specialty Diagnoses / Procedures Referred By Contact Refer red To Contact Radiology Diagnoses Invasive lobular carcinoma of breast, stage 1, right (HRC) Briana Perez, Radiology Procedures NM Breast Sent Node Inj Rt Lymphoseek JO, [facility] [id number] [place] [id number] Referral ID Status Reason Start Date Expiration Date Visits Requ ested Visits Authorized [id number] Closed 12/27/2019 03/27/2021 6 6 NG ASSEMBLER SUPERVISOR Encounter Details Date Type Department Care Team Description 12/27/2019 Notes/Orders [facility] Briana Perez Inv asive lobular Center JO Ha, [facility] carcinoma of breast, [address] stage 1, right (HRC) [place], [place] [id number] [place] [address] (Primary Dx) [phone] Social History Tobacco Use Types Packs/Day Years Used Date Smoking Tobacco: Never Smokeless Tobacco: Never Alcohol Use Standard Drinks/Week Comments Yes 7 (1 standard drink = 0.6 oz pure alcoho l) Alcohol Habits Answer Date Recorded How often do you have a drink containing 4 or more times a w [place] 02/01/2020 alcohol? How many drinks containing alcohol do you have Not asked on a typical day when you are drinking? How often do you have six or more drinks on one Not asked occasion? Comment: Not asked Sex Assigned at Date Recorded Not on file documented as of this encounter Plan of Treatment Not on filedocumented as of this encounter Results NM Breast Sent Node Inj Rt Lymphoseek (02/15/2020 8:42 AM SPRING ASSEMBLER SUPERVISOR) Anatomical Region Laterality Modality Breast Right Nuclear Medicine, Ul trasound Specimen (Source) Anatomical Location Collection Method / Collectio n Time Received Time / Laterality Volume Narrative 02/15/2020 9:34 AM SPRING ASSEMBLER SUPERVISOR INDICATION: ??Breast Carcinoma. Pre-operative identification of the right sentinel lymph node. PROCEDURE: ??Informed consent was obtain ed from the patient. ??The skin was prepped with chloraprep. ??0.535 millicu jessica of technetium 99M tilmanocept were injected subdermally along the uppe r outer aspect of the areolar margin. The patient tolerated this well. Briana OSORIO, [facility] RAD NM documented in this encounter Visit Diagnoses Diagnosis Invasive lobular carcinoma of breast, st age 1, right (HRC) - Primary Invasive lobular carcinoma of breast, st age 1, right (HRC) documented in this encounter Care Teams Cd Reactor Operator Relationship Specialty Start Date End Date Mary Kay Lr, BOAT DRIVER, FRONT LOADER RESIDENTIAL DRIVER PCP - General Nurse Practitioner 12/01/17 04/23/21 [address] [place] [address] documented as of this encounter
--- OUTSIDE RECORDS SUMMARY | 2021-11-06 20:40 | XMS_ITS | Encounter Summary ---
:1975 Author Organization [facility] Address [address] [place] [address] Care Team Providers Name Role Phone Mary Kay Lr APRN, PHYSICIAN ADVISOR Primary Care Provider [phone] Encounter Details Date Type Department Care Team Description 02/13/[address] [facility] Mal ignant neoplasm of Drive Up overlapping sites of [address] right breast in [place], [place] [address] female, estrogen [phone] receptor positi ve (HRC) Social History Tobacco Use Types Packs/Day Years [...] Name Priority Date/Time Associated Diagnosis Comme nts 2019 NOVEL Routine 02/13/2020 8:26 AM Malignant neoplasm Res ults for this CORONAVIRUS TEA PLANTATION WORKER of overlapping sites procedu re are in of right breast in the resul ts female, estrogen section. receptor positive (HRC) documented in this encounter Results 2019 Novel Coronavirus (COVID-19) (02/13/2020 8:26 AM TEA PLANTATION WORKER) [facility] Method Time Signature COVID-19 Not Not 02/13/2020 [facility] Interpretation Detected Detected 8:19 PM CENTRAL LAB TEA PLANTATION WORKER Specimen Anatomical Collection Method Collection Time Receive d Time (Source) Location / / Volume Laterality Swab (Source Non-blood 02/13/2020 8:26 AM Required) Collection / TEA PLANTATION WORKER 10:41 AM TEA PLANTATION WORKER Unknown Narrative [facility] - 02/13/2020 8:19 PM TEA PLANTATION WORKER Test performed by [facility] Worker Mediated Amplification. TMA has been shown to be equivalent to commercial real-time PCR t ests. This test has been authorized by the FDA under an Emergency Use Authorization (EUA) for use by authorized laboratories. Stephanie Soto MD LAB_1 Performing Organization Address City/State/ZIP Code Phon e Number [facility] [address] [id number] documented in this encounter Visit Diagnoses Diagnosis Malignant neoplasm of overlapping sites of right breast in female, estrogen receptor positive (HRC) documented in this encounter Care Teams Him Coder Relationship Specialty Start Date End Date Mary Kay Lr, FIRST OFFICER, PHYSICIAN ADVISOR PCP - General Nurse Practitioner 12/01/17 04/23/21 [address] [place] [address] documented as of this encounter
--- OUTSIDE RECORDS SUMMARY | 2021-11-06 20:40 | XMS_ITS | Encounter Summary ---
:1975 Author Organization [employer] Address [address], [place] [address] Care Team Providers Name Role Phone Deepjordan Mary Kay Sweetie MOHAN, WIND ENERGY SYSTEMS INSTALLER Primary Care Provider [phone] Reason for Visit Reason Comments Drain Care Encounter Details Date Type Department Care Team Description 02/29/2020 Telephone Cosmetic and Plastic Nathen Soto MD [facility] [address] [place] [address] [place] [address] [address] [place], [place] [id number] [phone] Social History Tobacco Use Types Packs/Day Years Used Date Smoking Tobacco: Never Smokeless Tobacco: Never Alcohol Use Standard Drinks/Week Comments Yes 7 (1 standard drink = 0.6 oz pure alcoho l) Alcohol Habits Answer Date Recorded How often do you have a drink containing 4 or more times a w [place] 02/01/2020 alcohol? How many drinks containing alcohol do you have Not asked on a typical day when you are drinking? How often do you have six or more drinks on one Not asked occasion? Comment: Not asked Sex Assigned at Date Recorded Not on file documented as of this encounter Nursing Notes Danielle Wen RN - 03/09/2020 2:02 PM CST Per , She was referring to Lymphedema therapy. I contacted Cristiana who states she is scheduled to start Lymphedema therapy on 03/22. Patient has no further questions at this time. Danielle Wen RN BURNER REPAIRER Danielle Wen RN - 03/09/2020 1:18 PM CST I spoke to Cristiana and reviewed her questions. Cristiana will continue to wear the primo bandage through [facility] and then transition back to her sports bra. Cristiana states when she was seen in clinic this past Thursday, she was told by to start Physical Therapy. Patient is questioning if her appnt for Lymphedema therapy is what was referencing. Will ask to clarify. Will contact Cristiana back later today or on Thursday. Danielle Wen RN BURNER REPAIRER Mariana Salgado - 03/09/2020 12:38 PM CST Miscellaneous Questions & FYI's [ Appt Center/Fast Food Assistant Restaurant Manager: If this call is after 3 p.m., communicate to patient: If we are not able to get back to you by the end of the day and your symptoms worsen please contact the Careline at [phone] OR at .] Is this a symptom? No What is your question or concern? Pt seen on 03/05/20. Primo bandage wrapped around. Wants to know how long to keep on? 2. And question about dressing changes? Have you recently been seen for this? Yes: 03/05/20 Is it okay to leave a detailed message on your voicemail? No Mariana Salgado BURNER REPAIRER Roshni Montiel - 03/02/2020 8:41 AM CST Appointment has been scheduled. Roshni Montiel 03/02/2020, 8:42 AM BURNER REPAIRER Zayda Leiva RN - 03/02/2020 8:28 AM CST Was able to reach patient today. She reports that her drain total yesterday was 30 cc. In speaking with her it sounds like she is having trouble adding up her 24hr drain totals. She would like to keep the drain over the weekend and return to clinic on Thursday for follow up and drain removal. I offered her 4:30pm with [facility] at [place] on Sunday 03/05 but the slot won't let me schedule. CA: Could you book appointment? Pt aware of appointment. Zayda Leiva RN Zayda Davila RN - 03/01/2020 2:58 PM CST Tried calling again. No answer. Voice Mailbox is still full and unable to leave a message. Zayda Leiva RN Zayda Davila RN - 03/01/2020 10:45 AM CST Merlene can see patient tomorrow at 1:15. Tried calling x 2. No answer. VM is full and cannot leave message. Will try back later. Zayda Leiva RN Zayda Davila RN - 03/01/2020 10:41 AM CST Message sent to Merlene to see if howe can add her onto schedule. Zayda Leiva RN Stephanie Downing MD - 03/01/2020 10:29 AM CST Ok for thursday Zayda Davila RN - 03/01/2020 9:31 AM CST DOS: 02/15/20 Direct to implant recon right breast Reports drain total for the past 3 days. Thu-: 40 cc -Thu: 30cc This morning has 10cc from overnight. She is wondering if she can have the drain pulled before the weekend??... She is right on the cusp... Dr DanielleCharles your thoughts? Would like to be seen at [facility].Merlene could you accommodate her tomorrow? Zayda Leiva, RN BURNER REPAIRER Jannet Cheema - 02/29/2020 3:39 PM CST Pt would like to talk with Merlene. She has some questions about the output of her drains.She is stilllgetting 30 cc in 24 hrs. Jannet Cheema BURNER REPAIRER documented in this encounter Plan of Treatment Not on filedocumented as of this encounter Visit Diagnoses Not on filedocumented in this encounter Care Teams Private Sector Executive Relationship Specialty Start Date End Date Mary Kay Lr, RN CARDIAC CATH, WIND ENERGY SYSTEMS INSTALLER PCP - General Nurse Practitioner 12/01/17 04/23/21 [address] [place] [address] documented as of this encounter
--- OUTSIDE RECORDS SUMMARY | 2021-11-06 20:40 | XMS_ITS | Encounter Summary ---
:1975 Author Organization [facility] Address [address], [place] [address] Care Team Providers Name Role Phone Mary Kay Lr APRN, DIRECTOR WEIGHTS AND MEASURES Primary Care Provider [phone] Reason for Visit Consult/Transfer Care (Routine) - Closed Specialty Diagnoses / Procedures Referred By Contact Refer red To Contact Diagnoses Malignant neoplasm of overlapping sites of right breast in female, estrogen receptor positive (HRC) Briana Perez MB, [address] [address] Referral ID Status Reason Start Date Expiration Date Visits Requ ested Visits Authorized [id number] Closed 12/27/2019 03/27/2021 1 1 Encounter Details Date Type Department Care Team Description 01/09/2020 Office Visit [facility] Helen Martinez, Malignant neoplasm of overlapping sites of right breast in female, estrogen receptor positive (HRC) (Primary Dx); [facility] at [facility] Asymptomatic HIV infection (HRC); [address]/ hysterectomy [address] [place] [phone] Social History Tobacco Use Types Packs/Day Years [...] Sign Reading Time Taken Comments Blood Pressure 117/80 01/09/2020 1:32 PM LOCAL FLATBED DRIVER Pulse 90 01/09/2020 1:32 PM LOCAL FLATBED DRIVER Temperature 36.6 ??C (97.8 ??F) 01/09/2020 1:32 PM LOCAL FLATBED DRIVER Respiratory Rate - - Oxygen Saturation - - Inhaled Oxygen Concentration - - Weight 59.2 kg (130 lb 9.6 oz) 01/09/2020 1:32 PM LOCAL FLATBED DRIVER Height 170.2 cm (5' 7) 01/09/2020 1:32 PM LOCAL FLATBED DRIVER Body Mass Index 20.45 01/09/2020 1:32 PM LOCAL FLATBED DRIVER documented in this encounter Patient Instructions Patient InstructionsDing, Helen Duque MD - 01/09/2020 1:30 PM CST Dear Cristiana, It was a pleasure to meet with you at the [facility]. DIAGNOSIS: 1. R breast invasive lobular carcinoma, ER+/MI+/Her2-. Clinically stage IA at diagnosis. TREATMENT/PLAN: 1. Proceed with surgery 2. Will plan to send surgical sample for OncotypeDx testing to determine recurrence risk and potential benefit from chemotherapy post-operatively 3. Endocrine therapy with aromatase inhibitor (anastrozole) after surgery with plan for 5 years of treatment with this hormone pill. Follow up in about 4 weeks after surgery If you would like to review additional [...] concerns after this visit, [facility]number [facility] [phone]. If you have concerns that arise after regular business hours, please call the nurse care line at [phone]. Helen Martinez MD 01/09/20 After surgery f/u with Dr. Martinez scheduled for 03/19/20. Pt given AVS. REMINDER! If you are not feeling well please call before you come to the clinic. CN/AC 01/09/20 L FLATBED DRIVER documented in this encounter Progress Notes Helen Martinez MD - 01/09/2020 1:30 [place] [address] Hematology/Oncology Clinic New Patient Visit Date of service: 01/09/20 Reason for consult: breast cancer PCP: Mary Kay Lr, EPIC KALEIDOSCOPE ANALYST, DIRECTOR WEIGHTS AND MEASURES Interpretor language: N/A HPI: Cristiana Castillo is a 45 y.o. woman with history of HIV infection who presents for evaluation of breast cancer. She presents alone today to clinic due to COVID-19 restrictions. Her and mother joined via conference. Her mother is not aware of her HIV diagnosis. Patient reports that she has been in her usual state of health. 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 She denies any new lumps or bumps, change in appetite, weight loss, abdominal pain, shortness of breath. She has no new pain. She denies any family history of cancer. Hematologic/Oncologic History Diagnosis: R breast invasive lobular carcinoma - ER+, MI+, Her2- - genetic testing: with DIS3L2 gene VUS c.2371G>A; POLE gene VUS c.6775C>T Stage: IA ([id number]) Intent of treatment: curative Current treatment: TBD [...] gene VUS c.2371G>A; POLE gene VUS c.6775C>T ROS: Full 10 point review of systems performed in its' entirety. Normal other than that noted in the HPI,and as follows: Review of Systems Constitutional: Negative for appetite change, diaphoresis, fatigue, fever and unexpected weight change. HENT: Negative for lump/mass, mouth sores and nosebleeds. Eyes: Negative for eye problems. Respiratory: Negative for chest tightness, cough, shortness of breath and wheezing. Cardiovascular: Negative for chest pain, leg swelling and palpitations. Gastrointestinal: Negative for abdominal distention, abdominal pain, blood in stool, constipation, diarrhea and nausea. Genitourinary: Negative for dysuria, hematuria and vaginal bleeding. Musculoskeletal: Negative for flank pain and gait problem. Skin: Negative for rash. Neurological: Negative for extremity weakness, gait problem, headaches and speech difficulty. Hematological: Negative for adenopathy. Does not bruise/bleed easily. Psychiatric/Behavioral: Negative for confusion. The patient is not nervous/anxious. PMH/PSH: Past Medical History: Diagnosis Date ??? Asthma ??? HIV (human immunodeficiency virus infection) ([place]) Past Surgical History: Procedure Laterality Date ??? HYSTERECTOMY 2011 with BSO (in [place]) for endometriosis/cysts ??? 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 Glaucoma Father ??? Hyperlipidemia Father ??? Cataract Father ??? Cancer, Other Father Mulitple Myeloma ??? Depression Mother ??? Thyroid Disorder Mother ??? Cancer, Breast Negative Family History ??? Cancer, Ovary Negative Family History ??? Cancer, Colon Negative Family History ??? Diabetes, Type II Negative Family History ??? Cancer, Pancreatic Negative Family History ??? Cancer, Prostate Negative Family History Allergies: No Known Allergies Performance status: 0 - Fully active; no performance restrictions Objective: BP 117/80 (BP Location: Left Arm, BP Cuff Size: Regular) Pulse 90 Temp 97.8 ??F (36.6 ??C) (Temporal Artery) Ht 5' 7 (1.702 m) Wt 130 lb 9.6 oz (59.2 kg) BMI 20.45 kg/m?? Wt Readings from Last 2 Encounters: 01/09/20 130 lb 9.6 oz (59.2 kg) 12/26/19 127 lb (57.6 kg) General: well-appearing, well-nourished woman in no acute distress HEENT: normocephalic, atraumatic. Lymph: no palpable cervical, supraclavicular, axillary lymphadenopathy bilaterally Breast: left breast without palpable masses or nodules; right breast with palpable about 1 cm noduleat 3:00 position Chest/Lungs: CTAB; no wheezing, rales or rhonchi Heart: regular rate and rhythm, no murmurs, clicks, gallops or rubs. Abdomen: soft, normoactive bowel sounds, no tenderness, no voluntary or involuntary guarding, no rebound, no palpable hepatosplenomegaly Back: no deformity; no spinal tenderness Extremities: no cyanosis, clubbing, or edema. No inflammation or deformities of joints. Neurological: alert/oriented x 3, attentive, face symmetrical, speech fluent and articulate, EOMI, ambulates independently with normal gait Skin: normal turgor; no rashes, discoloration, or ulceration; no ecchymoses or petechiae Inpatient Medications: Current Outpatient Medications Medication Sig Dispense Refill ??? ALBUTEROL IN Inhale 1-2 puffs every 4 hours as needed. 17 PRN ??? BIKTARVY 50-200-25 MG tablet Take 1 Tablet by mouth daily. 90 Tablet 3 ??? LORATADINE OR ??? VITAMIN D, CHOLECALCIFEROL, OR Take 1 Capsule by mouth daily. No current facility-administered medications for this visit. Labs: Reviewed Imaging: Reviewed Assessment: Cristiana Castillo is a/an 45 y.o. post-menopausal woman with history significant for HIV infection, history of RAMYA-BSO (2011) who presents for evaluation of newly diagnosed breast cancer. # R breast invasive lobular carcinoma, ER+/MI+/Her2- Clinically stage IA. We reviewed her diagnosis, clinical stage, prognosis, and treatment options moving forward with a specific focus on the role of endocrine therapy. We reviewed that given the early stage of the breast cancer and its hormone-receptor positive status, there is no clear evidence for neoadjuvant chemotherapy at this time and that it would be very reasonable to proceed with surgery, especially as the plan is for her to undergo mastectomy anyway. We will request that her surgical tissue sample be sent for OncotypeDx to determine the recurrence score and potential benefit to chemotherapy, if any. Based on her clinical features, the Predict tool estimates 1% benefit to adjuvant chemothe rapy at 15 years. We reviewed that there is a likely benefit to her receiving adjuvant endocrine therapy with AI. We reviewed the rationale for treatment, administration, and potential toxicities in depth. The goal would be to treat for a total of 5 years. We discussed that this would be started post-operatively, provided there is no indication for adjuvant chemotherapy. # HIV infection Currently receiving Biktarvy (bictegravir, emtricitabine, tenofovir alafenamide) and following with Dr. Hicks. QOPI Data: Pathology report verified: Yes Disease stage: I Pain: 0 Smoking: Never Emotional well being assessed:Yes, Referral placed: No, Med: No Chemotherapy plan: not yet known, Intent discussed with pt: Yes, Pt consented for chemo: N/A Advanced Directives: Not Discussed Recommendations: 1. Proceed with surgery; recommend sending for OncotypeDx. 2. Oncology follow-up about 4 weeks after surgery to review OncotypeDx results and next steps. 3. Provided OncotypeDx score is low, will plan to start adjuvant anastrozole 1 mg daily, to be continued for a total of 5 years. [facility] early 03/2020 Patient's, 's and mother's questions were answered to their apparent satisfaction. They understand to call with any questions or concerns. Thank you for including me in the care of this patient. Please contact me with any questions. Helen Martinez MD Hematology/Oncology Greater than 40 minutes were spent [id number] with the patient with greater than 50% of time spentin counseling and coordination of care. L FLATBED DRIVER Ann Mcgraw RN - 01/09/2020 1:30 PM CST Pt scheduled for surgery on February 15, [address] Martinez on Mar 19, 2020. Have sent a delayedstaff message as a reminder to request tissue for OncoType. Ann Mcgraw RN 01/09/2020, 4:16 PM L FLATBED DRIVER documented in this encounter Plan of Treatment Scheduled Referrals Name Type Priority Associated Diagnoses Order S chedule Oncology/Hematology Referral Routine Malignant neoplasm of Ordered: 12/27/2019 Consult Adult overlapping sites of right breast in female, estrogen receptor positive (HRC) documented as of this encounter Visit Diagnoses Diagnosis Malignant neoplasm of overlapping sites of right breast in female, estrogen receptor positive (HRC) - Primary Asymptomatic HIV infection (HRC) Asymptomatic human immunodeficiency viru s (HIV) infection status S/P hysterectomy Acquired absence of both cervix and uter us documented in this encounter Care Teams Heavy Machinery Assembler Relationship Specialty Start Date End Date Mary Kay Lr, EPIC KALEIDOSCOPE ANALYST, DIRECTOR WEIGHTS AND MEASURES PCP - General Nurse Practitioner 12/01/17 04/23/21 [address] [place] [address] documented as of this encounter
--- OUTSIDE RECORDS SUMMARY | 2021-11-06 20:40 | XMS_ITS | Encounter Summary ---
:1975 [facility] Address [address] [address] Care Team Providers Name Role Phone Mary Kay Lr APRN, MAINTENANCE INSPECTOR Primary Care Provider [phone] Encounter Details Date Type Department Care Team Description 01/16/2020 Telephone [facility] Briana Perez, [address] , [place] [address] [address] [facility] [phone] [place], [place] [address] (Wo rk) Social History Tobacco Use Types Packs/Day Years Used Date Smoking Tobacco: Never Smokeless Tobacco: Never Alcohol Use Standard Drinks/Week Comments Yes 7 (1 standard drink = 0.6 oz pure alcoho l) Alcohol Habits Answer Date Recorded How often do you have a drink containing 4 or more times a w [place] 02/01/2020 alcohol? How many drinks containing alcohol do you have Not asked on a typical day when you are drinking? How often do you have six or more drinks on one Not asked occasion? Comment: Not asked Sex Assigned at Date Recorded Not on file documented as of this encounter Nursing Notes Briana Perez MB, [facility] - 01/16/2020 1:44 PM CST Called patient to review plans for surgery. Voicemail is full. Will try again later. JO Bauman, [facility] 01/16/2020, 1:45 PM Electronically signed by Briana Perez MB, [facility] at 01/16/2020 1:45 PM DRIVER STARTING GATE documented in this encounter Plan of Treatment Not on filedocumented as of this encounter Visit Diagnoses Not on filedocumented in this encounter Care Teams Magnesium Mill Operator Relationship Specialty Start Date End Date Mary Kay Lr, [place], MAINTENANCE INSPECTOR PCP - General Nurse Practitioner 12/01/17 04/23/21 [address] [place] [address] documented as of this encounter
--- OUTSIDE RECORDS SUMMARY | 2021-11-06 20:40 | XMS_ITS | Encounter Summary ---
:1975 Author Organization [facility] Address [address] [place] [address] Care Team Providers Name Role Phone Mary Kay Lr APRN, FIBER TECHNOLOGIST Primary Care Provider [phone] Reason for Visit Reason Comments Follow-up, NOS Encounter Details Date Type Department Care Team Description 02/17/2020 Telephone Careline Unknown, Physician Follow-up, NOS [address] [place], [place] [address] [place] [address] [phone] (Wo rk) Social History Tobacco Use Types Packs/Day Years Used Date Smoking Tobacco: Never Smokeless Tobacco: Never Alcohol Use Standard Drinks/Week Comments Yes 7 (1 standard drink = 0.6 oz pure alcoho l) Alcohol Habits Answer Date Recorded How often do you have a drink containing 4 or more times a w [place] 02/01/2020 alcohol? How many drinks containing alcohol do you have Not asked on a typical day when you are drinking? How often do you have six or more drinks on one Not asked occasion? Comment: Not asked Sex Assigned at Date Recorded Not on file documented as of this encounter Nursing Notes Xiomara River RN - 02/17/2020 1:25 PM CST Verified patient identity: Yes Situation/Background (brief explanation of current symptoms/situation): Had a mastectomy on 02/14.Has some questions about post op. 1) can she use deoderant. - No until seen on 02/22. Ask then. 2) Can she take melatonin. - Yes if not taking the [place], no if taking norco. 3) How much tylenol is safe to take- 1000 mg every 8 hours unless directed to take more my MD 4) Can she take ibuprofen for pain. - No can promote bleeding and is only 2 days post op. Not on discharge instructions as medications to take at this time. Xiomara River RN 02/17/2020, 1:45 PM R TRUCK DRIVER Joanna Haley - 02/17/2020 12:44 PM CST Verified patient identity using three identifiers: Yes Caller's relationship to patient: Self At which care system or clinic is the patient normally seen? [facility] Symptoms Describe the reason for call/symptoms (include location and duration if applicable): Pt had a mastectomy 02/15/20 and is calling to ask about 1. Can she use deoderant 2. Can she switch from taking tylenol to Ibuprohm. 3. Can she take melatonin. Plan:The current callback time to speak with a nurse is 1 hour. If your symptoms change or worsen, or if you have not received a call back in the stated timeframe, please call us back R TRUCK DRIVER documented in this encounter Plan of Treatment Not on filedocumented as of this encounter Visit Diagnoses Not on filedocumented in this encounter Care Teams Charter Pilot Relationship Specialty Start Date End Date Mary Kay Lr, STOREROOM KEEPER, FIBER TECHNOLOGIST PCP - General Nurse Practitioner 12/01/17 04/23/21 [address] [place] [address] documented as of this encounter
--- OUTSIDE RECORDS SUMMARY | 2021-11-06 20:40 | XMS_ITS | Encounter Summary ---
:1975 [facility] Organization [facility] Address [address] [place] [address] Care Team Providers Name Role Phone Mary Kay Lr Sweetie MOHAN, VIDEO GAME REPAIR TECHNICIAN Primary Care Provider [phone] Reason for Visit Reason Comments VAGINITIS Encounter Details Date Type Department Care Team Description 02/29/2020 Office Visit [facility] Monica Lorenzo al itching and Gynecology MD [place] (Primary Dx) Phys[facility] [address] [place] [address] [place] [phone] Social History Tobacco Use Types Packs/Day Years Used Date Smoking Tobacco: Never Smokeless Tobacco: Never Alcohol Use Standard Drinks/Week Comments Yes 7 (1 standard drink = 0.6 oz pure alcoho l) Alcohol Habits Answer Date Recorded How often do you have a drink containing 4 or more times a w [place] 02/01/2020 alcohol? How many drinks containing alcohol do you have Not asked on a typical day when you are drinking? How often do you have six or more drinks on one Not asked occasion? Comment: Not asked Sex Assigned at Date Recorded Not on file documented as of this encounter Last Filed Vital Signs Vital Sign Reading Time Taken Comments Blood Pressure 112/71 02/29/2020 11:36 AM SUPERVISOR MOLDING Pulse 66 02/29/2020 11:36 AM SUPERVISOR MOLDING Temperature - - Respiratory Rate - - Oxygen Saturation - - Inhaled Oxygen Concentration - - Weight - - Height - - Body Mass Index - - documented in this encounter Patient Instructions Patient InstructionsMonica Lorenzo MD - 02/29/2020 11:20 AM SUPERVISOR MOLDING 1. You will be informed of the results of your testing and further management. Vaginitis What is vaginitis? Vaginitis is infection or inflammation of the vagina. It can cause itching and burning, a change in vaginal discharge, and sometimes pain during sex. What causes vaginitis? Vaginitis may be caused by bacteria, yeast, or other germs. Bath products, douches, and spermicides also can irritate the vagina and cause itching and discomfort. The three most common types of vaginitis, and their causes, are: ?? Yeast infection. A healthy vagina normally contains a small number of yeast cells, along with a certain number of bacteria. Normally there aren't enough of the yeast cells to cause problems. But sometimes something happens to the vagina that lets the yeast cells multiply quickly and take over, causing symptoms. Taking antibiotics sometimes causes this. Being , taking control pills that contain estrogen, or having hormone replacement therapy can also cause it. So can some health problems, like diabetes or HIV infection. ?? Bacterial vaginosis. This happens when some of the bacteria normally found in the vagina are ableto multiply quickly and take over, causing symptoms. Experts are not sure what causes this. But certain things make it more likely to happen. These include having more than one sex partner, having a female sex partner, having a sexually transmitted disease, using an IUD for control, and douching. ?? Trichomoniasis. This is a sexually transmitted disease caused by a parasite. You get it by havingsex with someone who has it. It is commonly called trich (say trick). Another type of vaginitis is atrophic vaginitis. This is an irritation of the vagina caused by thinning tissues and less moisture in the vaginal kaba. This often occurs with menopause as a result of the decrease in the hormone estrogen. Surgery to remove the ovaries can have the same effect. What are the symptoms? Symptoms of vaginitis may include: ?? A change in your normal vaginal discharge, including yousif, green, or yellow discharge. ?? Vaginal redness, swelling, itching, or pain. ?? Vaginal odor. ?? Burning when you urinate. ?? Pain or bleeding when you have sex. How is vaginitis diagnosed? Your doctor will check your vagina for redness and swelling and will take a sample of vaginal discharge. The sample can be tested in a lab to see what is causing the problem. How is it treated? If you are , talk with your doctor if you have any symptoms. Some problems can affect your , so it is important to talk with your doctor and get the right treatment. ?? Yeast infection: If you have had a yeast infection before and can recognize the symptoms, and youaren't , you can treat yourself at home with medicines you can buy without a prescription. You can use an antifungal cream or suppository that you put into your vagina. Or your doctor may prescribe antifungal tablets that you swallow. ?? Bacterial vaginosis: Doctors usually use antibiotics to treat this problem. It is usually a mild problem. But it can lead to more serious problems, so it's a good idea to see your doctor and get treatment. ?? Trichomoniasis: This disease is also treated with antibiotics. Both you and your sex partner needtreatment. ?? Atrophic vaginitis: This usually is treated with estrogen creams or tablets. How can you prevent vaginitis? ?? Do not take antibiotics unless you really need to. ?? Do not douche. ?? Do not use feminine deodorant sprays or other perfumed products in or around your vagina. ?? During your period, change tampons at least 3 times a day, or switch between tampons and pads. Don't leave tampons in for more than 8 hours. And be sure to remove the last tampon you use. ?? Use a condom during sex. Limit your number of sex partners. For more information, visit the [employer] Information Library on [employer] ??2008 [employer]. Adapted and reprinted with permission from the [employer]?? Knowledgebase product. This information does not replace the advice of a doctor. [employer] disclaims any warranty or liability for your use of this information. [employer] [employer] documented in this encounter Progress Notes Monica Lorenzo MD - 02/29/2020 11:20 AM CST ORTHOTIC/PROSTHETIC PRACTITIONER VISIT CC: Vaginal discharge Calvin Castillo is a 44 y.o. woman with hx of HIV and recurrent BV/yeast infections and h/o RAMYA, BSO who presents for symptoms of vaginal itching that began 2 days ago after completing a course of antibiotics. Has had recurrent BV and yeast in past. No vaginal dryness. No bleeding. Used OTC monistat and also did a baking soda bath. ??Menses are absent given hysterectomy, RAMYA, BSO for endometriosis in 2011. Diagnosed with right breast cancer s/p right nipple sparing mastectomy 02/15/20. Recovering well. O. Vitals (last day) Date/Time Temp Pulse Resp 02/29/20 1136 -- 66 -- Gen: NAD Pelvic: Examination of the external genitalia wnl. On speculum exam, scant white vaginal discharge noted. Otherwise vaginal cuff/mucosa normal. Vaginitis panel collected. Speculum removed. A/P. ICD-10-CM 1. Vaginal itching N89.8 Vaginitis Panel To be informed of results of testing and further management. All questions/concerns addressed. Monica Lorenzo MD 02/29/2020, 9:17 PM [employer] documented in this encounter Plan of Treatment Not on filedocumented as of this encounter Procedures Procedure Name Priority Date/Time Associated Diagnosis Comme nts VAGINITIS PANEL Routine 02/29/2020 12:31 PM Vaginal itching Re sults for this [employer] procedure are i n the results section. documented in this encounter Results (ABNORMAL) Vaginitis Panel (02/29/2020 12:31 PM [facility] MOLDING) [facility] Method Time Signature Gardnerella Positive (A) Negative 02/29/2020 [facility] vaginalis 3:51 PM [facility] Lexi species Negative Negative 02/29/2020 [facility] 3:51 PM [facility] Trichomonas Negative Negative 02/29/2020 [facility] vaginalis 3:51 PM [facility] Specimen Anatomical Collection Method Collection Time Receive d Time (Source) Location / / Volume Laterality Swab (Source SPECIMEN FROM Non-blood 02/29/2020 12:31 02/29/2020 2:39 Required) VAGINA / Unknown Collection / PM [facility] PM [facility] Unknown Monica Lorenzo MD LAB_1 Performing Organization Address City/State/ZIP Code Phon e Number [facility] [address] [place] [address] documented in this encounter Visit Diagnoses Diagnosis Vaginal itching - Primary Pruritus of genital organs documented in this encounter Care Teams Diesel Truck Crane Operator Relationship Specialty Start Date End Date Mary Kay Lr, PHOTOENGRAVING ETCHER, VIDEO GAME REPAIR TECHNICIAN PCP - General Nurse Practitioner 12/01/17 04/23/21 2010 [place] [address] documented as of this encounter
--- OUTSIDE RECORDS SUMMARY | 2021-11-06 20:40 | XMS_ITS | Encounter Summary ---
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 [place], [place] (Primary Dx) [place], [place] [phone] Social History Tobacco Use Types Packs/Day Years Used Date Smoking Tobacco: Never Smokeless Tobacco: Never Alcohol Use Standard Drinks/Week Comments Yes 7 (1 standard drink = 0.6 oz pure alcoho l) Alcohol Habits Answer Date Recorded How often do you have a drink containing 4 or more times a w [place] 02/01/2020 alcohol? How many drinks containing alcohol do you have Not asked on a typical day when you are drinking? How often do you have six or more drinks on one Not asked occasion? Comment: Not asked Sex Assigned at Date Recorded Not on file documented as of this encounter Last Filed Vital Signs Vital Sign Reading Time Taken Comments Blood Pressure 133/76 12/26/2019 2:26 PM TANK HOOP BENDER Pulse 68 12/26/2019 2:26 PM TANK HOOP BENDER Temperature - - Respiratory Rate 12 12/26/2019 2:26 PM TANK HOOP BENDER Oxygen Saturation - - Inhaled Oxygen Concentration - - Weight 57.6 kg (127 lb) 12/26/2019 2:26 PM TANK HOOP BENDER Height - - Body Mass Index 19.89 12/22/2019 10:20 AM TANK HOOP BENDER documented in this encounter Patient Instructions Patient InstructionsKDebi wetzel MD - 12/26/2019 2:20 PM CST On the day of surgery please [...] medications Medications that require special changes include: estrogen: stop 4 weeks before surgery (or as soon as possible) herbals: stop 7 days before surgery NSAIDS (arthritis medications): stop 3 days before surgery omega 3 fatty acids - stop 1 day before surgery (optional) . HOOP BENDER documented in this encounter Progress Notes Debi Gama MD - 12/26/2019 2:20 PM CST Pre-operative History and Physical Assessment Name: Cristiana Castillo : 1975 Primary physician: Mary Kay Lr, ACUTE CARE REGISTERED NURSE, DENSITOMETER READER. Historical: Cristiana Castillo is a 44 y.o. old female is here for preoperative cardiac and risk evaluation. Patientwill be scheduled for Breast surgery on not sure by Not sure Pertinent history: Breast cancer Additional concerns: None Preoperative Screening Questions: Any problems with / [...] 30 days? no Recent memory problems (dementia)? YES Is there a history of COPD(emphysema) or asthma? Yes. Is your breathing capacity with activity worsethan usual over the last month? no Medications: Current Outpatient Medications Medication Sig Note Dispense Refill ??? ALBUTEROL IN Inhale 1-2 puffs every 4 hours as needed. 17 PRN ??? BIKTARVY 50-200-25 MG tablet Take 1 Tablet by mouth daily. 90 Tablet 3 ??? estradiol (VIVELLEDOT) 0.025 MG/24HR semiweekly patch Apply 1 Patch to skin two times a week. 24Patch 3 ??? LORATADINE OR ??? metroNIDAZOLE (METROGEL-VAGINAL) 0.75 % vaginal gel Insert 1 Applicatorful vaginally two times aweek. (Patient not taking: Reported on 12/13/2019) 12/15/2018: PRN 70 g 3 ??? Multiple Vitamins-Minerals (EMERGEN-C IMMUNE OR) ??? VITAMIN D, CHOLECALCIFEROL, OR Take 1 [...] breast in female, estrogen receptor positive (HRC) Habits: Social History Tobacco Use ??? Smoking status: Never Smoker ??? Smokeless tobacco: Never Used Substance Use Topics ??? Alcohol use: Yes Alcohol/week: 7.0 standard drinks Types: 7 Glasses of wine per week Frequency: 4 or more times a week Past Surgical History: Procedure Laterality Date ??? HYSTERECTOMY 2011 with BSO (in [place]) for endometriosis/cysts ??? TONSILLECTOMY Observed: Physical Examination: Vital Signs: BP 133/76 (BP Location: Right Arm, BP Cuff Size: Small Adult/Large Pediatrics) Pulse 68 Resp 12 Wt 127 lb (57.6 kg) BMI 19.89 kg/m?? Estimated body mass index is 19.89 kg/m?? as calculated from the following: Height as of 12/22/19: 5' 7 (1.702 m). Weight as of this encounter: 127 lb (57.6 kg). General: ambulatory, well nourished, alert. HEENT: [...] listed in patient instructions below. Special risks: -Pulmonary management: albuterol nebs q 4-6 hours as needed Will need another preop if surgery is not scheduled within 30 days Call us right away if develop any new symptoms /concerns HOOP BENDER documented in this encounter Plan of Treatment Not on filedocumented as of this encounter Visit Diagnoses Diagnosis Pre-operative general physical examinati on - Primary Other specified pre-operative examinatio n documented in this encounter Care Teams Director Insurance Relationship Specialty Start Date End Date Mary Kay Lr, ACUTE CARE REGISTERED NURSE, DENSITOMETER READER PCP - General Nurse Practitioner 12/01/17 04/23/21 [address] [place] [address] documented as of this encounter
--- OUTSIDE RECORDS SUMMARY | 2021-11-06 20:41 | XMS_ITS | Encounter Summary ---
:1975 Author Organization [facility] Address [address] [address] Care Team Providers Name Role Phone Mary Kay Lr APRN, PERSONAL INVESTMENT ADVISER Primary Care Provider [phone] Encounter Details Date Type Department Care Team Description 12/21/2019 Lab Visit [facility] Asymp tomatic HIV infection (HRC); Laboratory Encounter for nonprocreative genetic counseling; [facility] Malignant neoplasm of overla pping sites of right breast in female, estrogen receptor positive (HRC) [place] [address] Social History Tobacco Use Types Packs/Day Years [...] documented as of this encounter Progress Notes Cynthia Irby, CGC - 12/21/2019 1:25 PM CST GENETIC COUNSELING 01/02/2020 PURPOSE Disclose variant of uncertain significance (VUS) genetic test results. HISTORY OF PRESENT ILLNESS Ms. Castillo was counseled by me on 12/19 due to her personal diagnosis of breast cancer. At that visit, she elected to pursue the STAT Breast Cancer Panel through [facility] with reflex to the multi cancer panel with breast preliminary evidence genes. Both reports became available within minutes of each other. These results were communicated to the patient via a [employer] message . RESULT Genetic testing included sequence analysis and gross deletion/duplication analysis of 93 genes associated with hereditary cancer. Genes tested included: ABRAXAS1, AIP, AKT1, ALK, APC, MARGIE, AXIN2, BAP1, BARD1, BLM, BMPR1A, BRCA1, BRCA2, BRIP1, CASR, CDC73, CDH1, CDK4, CDKN1B, CDKN1C, CDKN2A ([id number]), CDKN2A ([id number]), CEBPA, CHEK2, CTNNA1, DICER1, DIS3L2, EGFR, EPCAM*, FANCC, FANCM, FH, FLCN, GATA2, GPC3, GREM1*, HOXB13, HRAS, KIT, MAX, MEN1, MET, MITF*, MLH1, MRE11, MSH2, MSH3, MSH6, MUTYH, NBN, NF1, NF2, NTHL1, PALB2, PDGFRA,PHOX2B*, PIK3CA, PMS2, POLD1, POLE, POT1, LRYHC4Z, PTCH1, PTEN, RAD50, RAD51C, RAD51D, RB1, RECQL, RECQL4, RET, RINT1, RUNX1, SDHA*, SDHAF2, SDHB, SDHC, SDHD, SMAD4, SMARCA4, SMARCB1, SMARCE1, STK11, SUFU, TERC, TERT, WQVT646, TP53, TSC1, TSC2, VHL, WRN*, WT1, XRCC2 [...] in the DIS3L2 gene, specifically named c.2371G>A (p.[id number]). Individuals who have a known pathogenic variant [...] in the POLE gene, specifically named c.6775C>T (p.[id number]). Individuals who have a known pathogenic variant [...] recommendations, such as those made by the [employer], do remain appropriate. FOLLOW UP/RECOMMENDATIONS [...] questions. Time: 8 min Cynthia Irby MS, [facility] Licensed Genetic Counselor Cc: Dr. Ana Martinez Ms. Cristiana Castillo (via OpenNotes) Electronically signed by Cynthia Irby [facility] [place] 01/02/2020 12:00 PM MARKETING TECHNOLOGY COORDINATOR Briana Perez MB, [facility] - 12/21/2019 1:25 PM CST I spoke with Cristiana about the genetic testing which did not identify any pathogenic mutations. We reviewed that in this setting there is no survival benefit to a contralateral mastectomy. For many womenthere can be psychological and cosmetic benefits which factor into the decision. She had not yet decided on unilateral vs bilateral. She also had questions regarding a second opinion which I answered. I support second opinions especially for women with cancer diagnosis as the decision making can be very complex. She was wondering about how to arrange a second opinion. She was given the number for medical records. She has been happywith her treatment here so far and does not want to cancel plans for surgery at this time. She will let us know her decision. JO Bauman, EZEQUIEL 01/02/2020, 4:02 PM ETING TECHNOLOGY COORDINATOR documented in this encounter Plan of Treatment Not on filedocumented as of this encounter Procedures Procedure Name Priority Date/Time Associated Diagnosis Comme nts UA MICRO IF Routine 12/21/2019 1:34 Asymptomatic HIV Results for this PM MARKETING TECHNOLOGY COORDINATOR infection (HRC) procedure ar e in the results section. HIV-1 RNA QUANT Routine 12/21/2019 1:33 Asymptomatic HIV Resul ts for this PM MARKETING TECHNOLOGY COORDINATOR infection (HRC) procedure ar e in the results section. CBC AND DIFFERENTIAL Routine 12/21/2019 1:33 Asymptomatic HIV Results for this PANEL PM MARKETING TECHNOLOGY COORDINATOR infection (HRC) procedure ar e in the results section. TREPONEMA SCREEN Routine 12/21/2019 1:33 Asymptomatic HIV Resu lts for this PM MARKETING TECHNOLOGY COORDINATOR infection (HRC) procedure ar e in the results section. TB QUANTIFERON GOLD Routine 12/21/2019 1:33 Asymptomatic HIV R esults for this PLUS PM MARKETING TECHNOLOGY COORDINATOR infection (HRC) procedure ar e in the results section. TB QUANTIFERON GOLD Routine 12/21/2019 1:33 Asymptomatic HIV R esults for this PLUS MITOGEN PM MARKETING TECHNOLOGY COORDINATOR infection (HRC) procedure ar e in the results section. TB QUANTIFERON GOLD Routine 12/21/2019 1:33 Asymptomatic HIV R esults for this PLUS TB2 PM MARKETING TECHNOLOGY COORDINATOR infection (HRC) procedure ar e in the results section. TB QUANTIFERON GOLD Routine 12/21/2019 1:33 Asymptomatic HIV R esults for this PLUS TB1 PM MARKETING TECHNOLOGY COORDINATOR infection (HRC) procedure ar e in the results section. TB QUANTIFERON GOLD Routine 12/21/2019 1:33 Asymptomatic HIV R esults for this PLUS NIL PM MARKETING TECHNOLOGY COORDINATOR infection (HRC) procedure ar e in the results section. GENETIC LAB ORDER Routine 12/21/2019 1:33 Encounter for Result s for this PM MARKETING TECHNOLOGY COORDINATOR nonprocreative genetic proce dure are in counseling the results Malignant neoplasm of sectio n. overlapping sites of right breast in female, estrogen receptor positive (HRC) LIPID PANEL AND Routine 12/21/2019 1:33 Asymptomatic HIV Resul ts for this DIRECT LDL(IF PM MARKETING TECHNOLOGY COORDINATOR infection (HRC) procedure a re in NEEDED) the results section. CREATININE / GFR Routine 12/21/2019 1:33 Asymptomatic HIV Resu lts for this PM MARKETING TECHNOLOGY COORDINATOR infection (HRC) procedure ar e in the results section. COMPLETE BLOOD Routine 12/21/2019 1:33 Asymptomatic HIV Result s for this COUNT-W/DIFF PM MARKETING TECHNOLOGY COORDINATOR infection (HRC) procedure ar e in the results section. T CELL RATIO Routine 12/21/2019 1:33 Asymptomatic HIV Results for this PM MARKETING TECHNOLOGY COORDINATOR infection (HRC) procedure ar e in the results section. BILIRUBIN, TOTAL & Routine 12/21/2019 1:33 Asymptomatic HIV Re sults for this DIRECT PM MARKETING TECHNOLOGY COORDINATOR infection (HRC) procedure ar e in the results section. HGB A1C Routine 12/21/2019 1:33 Asymptomatic HIV Results for this PM MARKETING TECHNOLOGY COORDINATOR infection (HRC) procedure ar e in the results section. ALT (SGPT) Routine 12/21/2019 1:33 Asymptomatic HIV Results for this PM MARKETING TECHNOLOGY COORDINATOR infection (HRC) procedure ar e in the results section. AST Routine 12/21/2019 1:33 Asymptomatic HIV Results for this PM MARKETING TECHNOLOGY COORDINATOR infection (HRC) procedure ar e in the results section. BUN Routine 12/21/2019 1:33 Asymptomatic HIV Results for this PM MARKETING TECHNOLOGY COORDINATOR infection (HRC) procedure ar e in the results section. documented in this encounter Results UA Micro If (ONLY FOR PTS ON TENOFOVIR OR TRUVADA) (12/21/2019 1:34 PM MARKETING TECHNOLOGY COORDINATOR) [facility] gist Method Time Signature Urine Color Straw Straw-Yellow 12/21/2019 [facility] 2:59 PM MARKETING TECHNOLOGY COORDINATOR HOSPITAL Urine Clarity Clear Clear 12/21/2019 [facility] 2:59 PM MARKETING TECHNOLOGY COORDINATOR [facility]OSPITAL Specific 1.005 1.005 - 12/21/2019 [facility] [place], 1.030 2:59 PM MARKETING TECHNOLOGY COORDINATOR HOSPITAL Urine PH Urine 8.0 5.0 - 8.0 12/21/2019 [facility] 2:59 PM MARKETING TECHNOLOGY COORDINATOR [facility]OSPITAL Protein, Negative Negative 12/21/2019 [facility] Urine Qual 2:59 PM [facility] (mg/dL) Glucose Urine Negative Negative 12/21/2019 [facility] Qual (mg/dL) 2:59 PM MARKETING TECHNOLOGY COORDINATOR [facility]OSPITAL Ketones, Negative Negative 12/21/2019 [facility] Urine (mg/dL) 2:59 PM MARKETING TECHNOLOGY COORDINATOR [facility]OSPITAL Urobilinogen, <2.0 <2.0 12/21/2019 [facility] Urine (EU/dL) 2:59 PM MARKETING TECHNOLOGY COORDINATOR [facility]OSPITAL Bilirubin Negative Negative 12/21/2019 [facility] Urine 2:59 PM MARKETING TECHNOLOGY COORDINATOR [facility]OSPITAL Blood, Urine Negative Neg/Trace 12/21/2019 [facility] 2:59 PM MARKETING TECHNOLOGY COORDINATOR [facility]OSPITAL Nitrite Urine Negative Negative 12/21/2019 [facility] 2:59 PM MARKETING TECHNOLOGY COORDINATOR [facility]OSPITAL Leukocyte Negative Negative 12/21/2019 [facility] Est. 2:59 PM [facility] Urine Source Clean Catch 12/21/2019 [facility] 2:59 PM MARKETING TECHNOLOGY COORDINATOR [facility]OSPITAL Specimen Anatomical Collection Method Collection Time Receive d Time (Source) Location / / Volume Laterality Urine URINE SPECIMEN Non-blood 12/21/2019 1:34 PM 020 2:55 COLLECTION, CLEAN Collection / MARKETING TECHNOLOGY COORDINATOR PM MARKETING TECHNOLOGY COORDINATOR CATCH / Unknown Unknown Mike Hicks MD LAB_1 Performing Organization Address [facility]/ZIP [facility] [place] [address] TB QuantiFERON Gold Plus Mitogen (12/21/2019 1:33 PM MARKETING TECHNOLOGY COORDINATOR) P athologist Signature MITOGEN >10.000 IU/mL 12/23/2019 [facility] 10:06 AM MARKETING TECHNOLOGY COORDINATOR LABORATORY Specimen Anatomical Collection Method / Collection Time Recei bruno Time (Source) Location / Volume Laterality Blood Lab OP Venipuncture 12/21/2019 1:33 12/20 1:39 / Unknown PM MARKETING TECHNOLOGY COORDINATOR PM MARKETING TECHNOLOGY COORDINATOR Mike Hicks MD LAB_1 Performing Organization Address [facility] Phon e Number [facility] [address] [place] [address] TB QuantiFERON Gold Plus TB2 (12/21/2019 1:33 PM MARKETING TECHNOLOGY COORDINATOR) P athologist Signature TB2 0.146 IU/mL 12/23/2019 [facility] 10:07 AM MARKETING TECHNOLOGY COORDINATOR LABORATORY Specimen Anatomical Collection Method / Collection Time Recei bruno Time (Source) Location / Volume Laterality Blood Lab OP Venipuncture 12/21/2019 1:33 12/20 1:39 / Unknown PM MARKETING TECHNOLOGY COORDINATOR PM MARKETING TECHNOLOGY COORDINATOR Mike Hicks MD LAB_1 Performing Organization Address City/[facility] Phon e Number [facility] [address] [place] [address] TB QuantiFERON Gold Plus TB1 (12/21/2019 1:33 PM MARKETING TECHNOLOGY COORDINATOR) P athologist Signature TB1 0.122 IU/mL 12/23/2019 [facility] 10:07 AM MARKETING TECHNOLOGY COORDINATOR LABORATORY Specimen Anatomical Collection Method / Collection Time Recei bruno Time (Source) Location / Volume Laterality Blood Lab OP Venipuncture 12/21/2019 1:33 12/20 1:39 / Unknown PM MARKETING TECHNOLOGY COORDINATOR PM MARKETING TECHNOLOGY COORDINATOR Mike Hicks MD LAB_1 Performing Organization Address City/State/ZIP Code Phon e Number [facility] [address] [place] [address] TB QuantiFERON Gold Plus NIL (12/21/2019 1:33 PM MARKETING TECHNOLOGY COORDINATOR) [facility] Method Time Signature TB QuantiFERON Negative, M. Negative, M. 12/23/2019 [facility] T Gold Plus tuberculosis tuberculosis 10:08 AM LABORATORY Infection NOT Infection NOT MARKETING TECHNOLOGY COORDINATOR likely likely NIL 0.104 IU/mL 12/23/2019 [facility] 10:08 AM LABORATORY MARKETING TECHNOLOGY COORDINATOR TB1-NIL 0.02 IU/mL 12/23/2019 [facility] 10:08 AM LABORATORY MARKETING TECHNOLOGY COORDINATOR TB2-NIL 0.04 IU/mL 12/23/2019 [facility] 10:08 AM LABORATORY MARKETING TECHNOLOGY COORDINATOR Mitogen-NIL >9.90 IU/mL 12/23/2019 [facility] 10:08 AM LABORATORY MARKETING TECHNOLOGY COORDINATOR Specimen Anatomical Collection Method / Collection Time Recei bruno Time (Source) Location / Volume Laterality Blood Lab OP Venipuncture 12/21/2019 1:33 12/20 1:39 / Unknown PM MARKETING TECHNOLOGY COORDINATOR PM MARKETING TECHNOLOGY COORDINATOR Narrative [facility] - 12/23/2019 10:08 AM MARKETING TECHNOLOGY COORDINATOR Nil ?TB1-Nil ? TB2-Nil ?Mitogen-Nil ??Result ?Interpretation [...] Organization Address City/State/ZIP Code Phon e Number [facility] [address] [place] [address] Complete Blood Count-W/Diff (12/21/2019 1:33 PM MARKETING TECHNOLOGY COORDINATOR) P athologist Signature WBC 5.1 3.5 - 10.5 12/21/2019 [facility] x10(9)/L 1:49 PM MARKETING TECHNOLOGY COORDINATOR HOSPITAL RBC 4.84 3.90 - 12/21/2019 [facility] 5.03 1:49 PM [facility] x10(12)/L Hemoglobin 14.2 12.0 - 12/21/2019 [facility] 15.5 g/dL 1:49 PM MARKETING TECHNOLOGY COORDINATOR HOSPITAL HCT 43.1 34.9 - 12/21/2019 [facility] 44.5 % 1:49 PM MARKETING TECHNOLOGY COORDINATOR HOSPITAL MCV 89.0 80.0 - 12/21/2019 [facility] 100.0 fL 1:49 PM MARKETING TECHNOLOGY COORDINATOR HOSPITAL MCH 29.3 27.6 - 12/21/2019 [facility] 33.3 pg 1:49 PM MARKETING TECHNOLOGY COORDINATOR HOSPITAL MCHC 32.9 31.5 - 12/21/2019 [facility] 35.2 g/dL 1:49 PM MARKETING TECHNOLOGY COORDINATOR HOSPITAL RDW 12.1 11.9 - 12/21/2019 [facility] 15.5 % 1:49 PM MARKETING TECHNOLOGY COORDINATOR HOSPITAL Platelets 240 150 - 450 12/21/2019 [facility] x10(9)/L 1:49 PM [facility] Automated NRBC 0 <=0 /100 12/21/2019 [facility] WBC 1:49 PM [facility] Neutrophil 2.8 1.7 - 7.0 12/21/2019 [facility] Absolute 10(9)/L 1:49 PM [facility] Lymphocyte 1.7 1.0 - 4.8 12/21/2019 [facility] Absolute 10(9)/L 1:49 PM [facility] Monocytes 0.4 0.2 - 0.9 12/21/2019 [facility] Absolute 10(9)/L 1:49 PM [facility] Eosinophil 0.2 0.0 - 0.5 12/21/2019 [facility] Absolute 10(9)/L 1:49 PM [facility] Basophil 0.0 0.0 - 0.3 12/21/2019 [facility] Absolute 10(9)/L 1:49 PM [facility] Immature Gran % 0.0 0.0 - 0.5 12/21/2019 [facility] % 1:49 PM [facility] Specimen Anatomical Collection Method / Collection Time Recei bruno Time (Source) Location / Volume Laterality Blood Lab OP Venipuncture 12/21/2019 1:33 12/20 1:38 / Unknown PM MARKETING TECHNOLOGY COORDINATOR PM MARKETING TECHNOLOGY COORDINATOR Mike Hicks MD LAB_1 Performing Organization Address City/State/ZIP Code Phon e Number [address] [address] Miscellaneous Genetic Test (12/21/2019 1:33 PM MARKETING TECHNOLOGY COORDINATOR) P athologist Signature Result: See Scanned 01/02/2020 [facility] Report 9:04 AM MARKETING TECHNOLOGY COORDINATOR (NON-INTERFACE D) Specimen Anatomical Collection Method / Collection Time Recei bruno Time (Source) Location / Volume Laterality Blood Lab OP Venipuncture 12/21/2019 1:33 12/20 5:19 / Unknown PM MARKETING TECHNOLOGY COORDINATOR PM MARKETING TECHNOLOGY COORDINATOR Narrative This result has an attachment that is no t available. Cynthia Irby [facility] [place]_1 Performing Organization Address City/State/ZIP Code Phon e Number REFERENCE LAB (NON-INTERFACED) [facility] (NON-INTERFACED) DO NOT MAIL Treponema Screen (12/21/2019 1:33 PM MARKETING TECHNOLOGY COORDINATOR) Patholo gist Method Time Signature Treponema Screen 0.093 {s_co_ratio 12/22/2019 [facility] Result } 10:59 AM LABORATORY MARKETING TECHNOLOGY COORDINATOR Treponema Screen Non Non 12/22/2019 [facility] Interpretation Reactive Reactive 10:59 AM LABORATORY MARKETING TECHNOLOGY COORDINATOR Specimen Anatomical Collection Method / Collection Time Recei bruno Time (Source) Location / Volume Laterality Blood Lab OP Venipuncture 12/21/2019 1:33 12/20 1:38 / Unknown PM MARKETING TECHNOLOGY COORDINATOR PM MARKETING TECHNOLOGY COORDINATOR Mike Hicks MD LAB_1 Performing Organization Address City/State/ZIP Code Phon e Number [facility] [address] [place] [address] T Cell Ratio (blood only) (12/21/2019 1:33 PM MARKETING TECHNOLOGY COORDINATOR) P athologist Signature CD3 (T Cells) % 79.1 62.1 - 12/21/2019 [facility] 85.0 % 4:11 PM MARKETING TECHNOLOGY COORDINATOR HOSPITAL CD3 (T Cells) 1,232 500-2,544 12/21/2019 [facility] Absolute /UL 4:11 PM MARKETING TECHNOLOGY COORDINATOR HOSPITAL CD3/CD4 (T 47.1 31.6 - 12/21/2019 [facility] Hines Cells) % 65.7 % 4:11 PM MARKETING TECHNOLOGY COORDINATOR HOSPITAL CD3/CD4 (T 734 337-1,687 12/21/2019 [facility] Hines Cells) /UL 4:11 PM [facility] Absolute CD3/CD8 (T 33.5 10.0 - 12/21/2019 [facility] Suppressor/Cyto 40.0 % 4:11 PM MARKETING TECHNOLOGY COORDINATOR HOSPITAL toxic Cells) % CD3/CD8 (T 521 140 - 907 12/21/2019 [facility] Suppressor/Cyto /UL 4:11 PM MARKETING TECHNOLOGY COORDINATOR HOSPITAL toxic Cells) Absolute CD4/CD8 Ratio 1.4 0.8 - 3.7 12/21/2019 [facility] 4:11 PM MARKETING TECHNOLOGY COORDINATOR HOSPITAL Specimen Anatomical Collection Method / Collection Time Recei bruno Time (Source) Location / Volume Laterality Blood Lab OP Venipuncture 12/21/2019 1:33 12/20 1:38 / Unknown PM MARKETING TECHNOLOGY COORDINATOR PM MARKETING TECHNOLOGY COORDINATOR Mike Hicks MD LAB_1 Performing Organization Address City/State/ZIP Code Phon e Number [address] [phone] (ABNORMAL) Lipid Panel and Direct LDL(If Needed) (12/21/2019 1:33 PM MARKETING TECHNOLOGY COORDINATOR) [facility] Method Time Signature Cholesterol 184 0 - 199 12/21/2019 [facility] mg/dL 2:13 PM MARKETING TECHNOLOGY COORDINATOR HOSPITAL Triglyceride 165 (H) <=149 12/21/2019 [facility] mg/dL 2:13 PM MARKETING TECHNOLOGY COORDINATOR HOSPITAL HDL Cholesterol 64 >=40 mg/dL 12/21/2019 [facility] 2:13 PM MARKETING TECHNOLOGY COORDINATOR HOSPITAL LDL, Calculated 87 <130 mg/dL 12/21/2019 [facility] 2:13 PM MARKETING TECHNOLOGY COORDINATOR [facility]OSPITAL Non HDL Chol, 120 mg/dL 12/21/2019 [facility] Calculated 2:13 PM MARKETING TECHNOLOGY COORDINATOR HOSPITAL Cholesterol/HDL 2.9 12/21/2019 [facility] Ratio 2:13 PM MARKETING TECHNOLOGY COORDINATOR HOSPITAL Hours Fasting N/A 12/21/2019 [facility] 2:13 PM [facility] Specimen Anatomical Collection Method / Collection Time Recei bruno Time (Source) Location / Volume Laterality Blood Lab OP Venipuncture 12/21/2019 1:33 12/20 1:38 / Unknown PM MARKETING TECHNOLOGY COORDINATOR PM MARKETING TECHNOLOGY COORDINATOR Mike Hicks MD LAB_1 Performing Organization Address City/[facility]/ZIP Code Phon e Number [address] [address] HIV-1 RNA Quant by TMA (12/21/2019 1:33 PM MARKETING TECHNOLOGY COORDINATOR) [facility] Method Time Signature HIV Interp Not Not 12/22/2019 [facility] Detected Detected 11:12 AM [facility]AL [facility] MARKETING TECHNOLOGY COORDINATOR HIV Copies <30 <30 12/22/2019 [facility] per/ml copies/mL 11:12 AM [facility]ENTRAL LAB MARKETING TECHNOLOGY COORDINATOR HIV Log <1.47 <1.47 log 12/22/2019 [facility] Copies/ml copies/mL 11:12 AM [facility]TRAL LAB MARKETING TECHNOLOGY COORDINATOR Specimen Anatomical Collection Method / Collection Time Recei bruno Time (Source) Location / Volume Laterality Blood Lab OP Venipuncture 12/21/2019 1:33 12/20 1:38 / Unknown PM MARKETING TECHNOLOGY COORDINATOR PM MARKETING TECHNOLOGY COORDINATOR Narrative [facility] - 12/22/2019 11:12 AM MARKETING TECHNOLOGY COORDINATOR Test performed by Cryptographer Mediated Amplification. Mike Hicks MD LAB_1 Performing Organization Address City/[facility]/ZIP Code Phon e Number [facility] CENTRAL LAB [address] [phone] Hgb A1c (12/21/2019 1:33 PM MARKETING TECHNOLOGY COORDINATOR) [facility] gist Method Time Signature Hemoglobin A1C 4.7 <=5.6 % 12/21/2019 [facility] 5:09 PM MARKETING TECHNOLOGY COORDINATOR CENTRAL LAB Specimen Anatomical Collection Method / Collection Time Recei bruno Time (Source) Location / Volume Laterality Blood Lab OP Venipuncture 12/21/2019 1:33 12/20 1:38 / Unknown PM MARKETING TECHNOLOGY COORDINATOR PM MARKETING TECHNOLOGY COORDINATOR Mike Hicks MD LAB_1 Performing Organization Address City/[facility] Phon e Number [facility] [address] [address] Creatinine / GFR (12/21/2019 1:33 PM MARKETING TECHNOLOGY COORDINATOR) athologist Signature Creatinine 0.70 0.55 - 12/21/2019 [facility] 1.02 mg/dL 2:13 PM MARKETING TECHNOLOGY COORDINATOR [facility] GFR, Estimated >60 >60 12/21/2019 [facility] mL/min/1.7 2:13 PM MARKETING TECHNOLOGY COORDINATOR [facility] 3m2 Specimen Anatomical Collection Method / Collection Time Recei bruno Time (Source) Location / Volume Laterality Blood Lab OP Venipuncture 12/21/2019 1:33 12/20 1:38 / Unknown PM MARKETING TECHNOLOGY COORDINATOR PM MARKETING TECHNOLOGY COORDINATOR Mike Hicks MD LAB_1 Performing Organization Address [facility] Phon e Number [address] [address] BUN (12/21/2019 1:33 PM MARKETING TECHNOLOGY COORDINATOR) athologist Signature BUN 11 7 - 26 12/21/2019 [facility] mg/dL 2:[address] [facility] Specimen Anatomical Collection Method / Collection Time Recei bruno Time (Source) Location / Volume Laterality Blood Lab OP Venipuncture 12/21/2019 1:33 12/20 1:38 / Unknown PM MARKETING TECHNOLOGY COORDINATOR PM MARKETING TECHNOLOGY COORDINATOR Mike Hicks MD LAB_1 Performing Organization Address [facility] Phon e Number [address] [address] Bilirubin, Total & Direct (12/21/2019 1:33 PM MARKETING TECHNOLOGY COORDINATOR) athologist Signature Bilirubin, 0.2 0.0 - 0.5 12/21/2019 [facility] Direct mg/dL 2:13 PM MARKETING TECHNOLOGY COORDINATOR HOSPITAL Bilirubin, 0.3 0.2 - 1.2 12/21/2019 [facility] Total mg/dL 2:13 PM MARKETING TECHNOLOGY COORDINATOR [facility]OSPITAL Specimen Anatomical Collection Method / Collection Time Recei bruno Time (Source) Location / Volume Laterality Blood Lab OP Venipuncture 12/21/2019 1:33 12/20 1:38 / Unknown PM MARKETING TECHNOLOGY COORDINATOR PM MARKETING TECHNOLOGY COORDINATOR Mike Hicks MD LAB_1 Performing Organization Address [facility] Phon e Number [address] [address] AST (12/21/2019 1:33 PM MARKETING TECHNOLOGY COORDINATOR) athologist Signature AST (SGOT) 19 10 - 40 U/L 12/21/2019 [facility] 2:13 PM MARKETING TECHNOLOGY COORDINATOR [facility]OSPITAL Specimen Anatomical Collection Method / Collection Time Recei bruno Time (Source) Location / Volume Laterality Blood Lab OP Venipuncture 12/21/2019 1:33 12/20 1:38 / Unknown PM MARKETING TECHNOLOGY COORDINATOR PM MARKETING TECHNOLOGY COORDINATOR Mike Hicks MD LAB_1 Performing Organization Address [facility] Phon e Number [address] [address] ALT (SGPT) (12/21/2019 1:33 PM MARKETING TECHNOLOGY COORDINATOR) athologist Signature ALT (SGPT) 22 0 - 55 U/L 12/21/2019 [facility] 2:13 PM MARKETING TECHNOLOGY COORDINATOR HOSPITAL Specimen Anatomical Collection Method / Collection Time Recei bruno Time (Source) Location / Volume Laterality Blood Lab OP Venipuncture 12/21/2019 1:33 12/20 1:38 / Unknown PM MARKETING TECHNOLOGY COORDINATOR PM MARKETING TECHNOLOGY COORDINATOR Mike Hicks MD LAB_1 Performing Organization Address [facility] Phon e Number [address] [address] documented in this encounter Visit Diagnoses Diagnosis Asymptomatic HIV infection (HRC) Asymptomatic human immunodeficiency viru s (HIV) infection status Encounter for nonprocreative genetic cou nseling Malignant neoplasm of overlapping sites of right breast in female, estrogen receptor positive (HRC) documented in this encounter Care Teams Test Preparer Relationship Specialty Start Date End Date Mary Kay Lr, REGIONAL SALES ASSOCIATE, PERSONAL INVESTMENT ADVISER PCP - General Nurse Practitioner 12/01/17 04/23/21 [address] [place], [place] [id number] documented as of this encounter
--- OUTSIDE RECORDS SUMMARY | 2021-11-06 20:41 | XMS_ITS | Encounter Summary ---
:1975 Author Organization [facility] Address [address], [place] [address] Care Team Providers Name Role Phone Mary Kay Lr APRN, INTAKE COUNSELOR Primary Care Provider [phone] Reason for Visit Procedure/Equipment (Routine) - Incomplete Specialty Diagnoses / Procedures Referred By Contact Refer red To Contact Diagnoses Abnormal mammogram Saray Barrera MD Procedures MM US Breast Rt [address] [place], [place] [address] Referral ID Status Reason Start Date Expiration Date Visits V isits Requested Authorized [id number] Incomplete 12/08/2019 03/08/2021 1 1 Encounter Details Date Type Department Care Team Description 12/08/2019 [facility] Saray Barrera, Abnormal mammogram [facility] [address] [facility] [place] [address] [phone] Social History Tobacco Use Types Packs/Day Years Used Date Smoking Tobacco: Never Smokeless Tobacco: Never Alcohol Use Standard Drinks/Week Comments Yes 7 (1 standard drink = 0.6 oz pure alcoho l) Alcohol Habits Answer Date Recorded How often do you have a drink containing 4 or more times a w [place] 02/01/2020 alcohol? How many drinks containing alcohol [...] Priority Date/Time Associated Diagnosis Comme nts MM US BREAST RT Routine 12/08/2019 1:51 PM Abnormal mammogram Results for this CDT procedure are i n the results section. documented in this encounter Results (ABNORMAL) MM US Breast Rt (12/08/2019 1:51 PM CDT) Anatomical Region Laterality Modality Breast Right Ultrasound Specimen (Source) Anatomical Collection Method Collection Time Re ceived Time Location / / Volume Laterality 12/08/2019 1:51 PM CDT Narrative 12/08/2019 3:42 PM CDT EXAM: MM MAMMOGRAM DIAG RT, MM US BREAST RT LOCATION: [facility] DATE/TIME: 12/08/2019 12:57 PM INDICATION: Abnormal screening mammogram COMPARISON: Mammograms 11/30/2019, 03/01, 06/26/2016 MAMMOGRAPHIC FINDINGS: Right full-field digital diagnostic mammogram performed. The right breast is extremely dense, which lowers the sensitivity of mammography. Images evaluated with the assistance of CAD. Magnification views of the area of interest in the right breast were performed. There is a spiculated mass visualized in the right breast at 3:00 posterior depth. There are numerous groups of punct ate calcifications nearly circumferentia lly around the mass with greatest extent measuring up to 3.4 cm (anteroposterior). Additionally there are punctate and coarse heterogeneous calcifications seen at 6 o'clock position posterior depth. ULTRASOUND FINDINGS: Targeted ultrasound performed of the right breast demonstrates a 1.0 x 0.6 x 1.0 cm mass at 3:00 6 cm from the nipple. This correlates with the mass seen on mammography. There is ad jacent vascularity demonstrated on color flow imaging. No other abnormalities identified sonographically. IMPRESSION: 1. Spiculated mass in the right breast a t 3:00 6 cm from the nipple is highly suspicious of malignancy. Multiple groupings of punctate calcifications along the periphery of the mass are also suspicious for ductal carcinoma in situ (DCIS). Giv en their close proximity to the mass. Separate stereotactic biopsy of those calcifications was not performed at this time. If in the course of the management of t he patient, biopsy of a set of these kanu cifications is needed, that can be performed on a later date. 2. Grouping of punctate and coarse heter ogeneous calcifications in the right breast at 6:00 posterior depth are suspicious abnormality. Given their distance from the mass and other calcifications, stere otactic biopsy is recommended and was elizalde bsequently performed today. ACR BI-RADS Category 5: Highly Suggestiv e of Malignancy. I personally scanned and discussed the f indings and recommendations with the patient at the conclusion of the examination. Procedure Note Georgie Crockett MD - 12/09/2019Formatt ing of this note might be different from the original. EXAM: MM MAMMOGRAM DIAG RT, MM US BREAST RT LOCATION: [facility] DATE/TIME: 12/08/2019 12:57 PM INDICATION: Abnormal screening mammogram COMPARISON: Mammograms 11/30/2019, 03/01, 06/26/2016 MAMMOGRAPHIC FINDINGS: Right full-field digital diagnostic mammogram performed. The right breast is extremely dense, which lowers the sensitivity of mammography. Images evaluated with the assistance of CAD. Magnification views of the area of inter est in the right breast were performed. There is a spiculated mass visualized in the right breast at 3:00 posterior depth. There are numerous groups of punctate calcifications nearly circumferentially around the mass with greatest extent measuring up to 3.4 cm (anteroposterior). Additionally there are punctate and coarse heterogeneous calcifications seen at 6 o'clock position posterior depth. ULTRASOUND FINDINGS: Targeted ultrasound performed of the right breast demonstrates a 1.0 x 0.6 x 1.0 cm mass at 3:00 6 cm from the nipple. This correlates with the mass seen on mammography. There is adjacent vascularity demonstrated on color flow i maging. No other abnormalities identified sonographically. IMPRESSION: 1. Spiculated mass in the right breast a t 3:00 6 cm from the nipple is highly suspicious of malignancy. Multiple groupings of punctate calcifications along the periphery of the mass are also suspicious for ductal carcinoma in situ (DCIS). Given t heir close proximity to the mass. Separate stereotactic biopsy of those calcifications was not performed at this time. If in the course of the management of the patient, biopsy of a set of these calcifications is needed, t hat can be performed on a later date. 2. Grouping of punctate and coarse heter ogeneous calcifications in the right breast at 6:00 posterior depth are suspicious abnormality. Given their distance from the mass and other calcifications, stereotactic biopsy is recommended and was subsequently perf ormed today. ACR BI-RADS Category 5: Highly Suggestiv e of Malignancy. I personally scanned and discussed the f indings and recommendations with the patient at the conclusion of the examination. Saray Barrera MD [facility] documented in this encounter Visit Diagnoses Diagnosis Abnormal mammogram Abnormal mammogram, unspecified documented in this encounter Care Teams Sprue Cutting Press Operator Relationship Specialty Start Date End Date Mary Kay Lr, CORNICE UPHOLSTERER, INTAKE COUNSELOR PCP - General Nurse Practitioner 12/01/17 04/23/21 [address] [place] [address] documented as of this encounter
--- OUTSIDE RECORDS SUMMARY | 2021-11-06 20:41 | XMS_ITS | Encounter Summary ---
:1975 Author Organization [facility] Address [address] [place] [id number] Care Team Providers Name Role Phone Mary Kay Lr APRN, CORPORATE RESPONSIBILITY OFFICER Primary Care Provider [phone] Reason for Visit Procedure/Equipment (Routine) - Incomplete Specialty Diagnoses / Procedures Referred By Contact Refer red To Contact Diagnoses Abnormal mammogram Saray Barrera MD Procedures MM Bx Stereotactic Breast Rt [address] [place], [place] [address] Referral ID Status Reason Start Date Expiration Date Visits V isits Requested Authorized [id number] Incomplete 12/01/2019 03/01/2021 1 1 Encounter Details Date Type Department Care Team Description 12/08/2019 [facility] Saray Barrera, Abnormal mammogram [facility] [address] [facility]. [address] [place] [address] [phone] Social History Tobacco Use Types Packs/Day Years Used Date Smoking Tobacco: Never Smokeless Tobacco: Never Alcohol Use Standard Drinks/Week Comments Yes 7 (1 standard drink = 0.6 oz pure alcoho l) Alcohol Habits Answer Date Recorded How often do you have a drink containing 4 or more times a w [place] 02/01/2020 alcohol? How many drinks containing alcohol [...] Procedure Name Priority Date/Time Associated Comments Diagnosis MM BX STEREOTACTIC Routine 12/08/2019 3:11 PM Abnormal mammogr am Results for this BREAST RT CDT procedure are i n the results section. documented in this encounter Results MM Bx Stereotactic Breast Rt (12/08/2019 3:11 PM CDT) Anatomical Region Laterality Modality Breast Right Ultrasound Specimen (Source) Anatomical Location Collection Method / Collectio n Time Received Time / Laterality Volume Addenda Addendum by Mary Gu MD on 8:43 AM CDT Initial addendum had an error regarding the corrected addendum is below. Pathology reveals atypical ductal hyperp lasia and atypical lobular hyperplasia. This is consistent with the imaging findings. A verbal report was given to the patient. Surgical consu lt has been arranged. Addendum by Mary Gu MD on 4:16 PM CDT Pathology reveals flat epithelial atypia . This is consistent with the imaging findings. A verbal report was gi durga to the patient. Surgical consult has been arranged. Impressions 12/08/2019 3:49 PM CDT : 1) Stereotactic biopsy of calcifications in the right breast. ??Pathology pending. 2) Post procedure mammogram for clip jeanna cement Narrative 12/08/2019 3:49 PM CDT RIGHT BREAST VACUUM ASSISTED STEREOTACTIC BIOPSY, SPECIMEN MAMMOGRAM, CLIP PLACEMENT AND RIGHT MAMMOGRAM: INDICATION: ??calcifications at 6 o'cloc k, posterior depth - specimen B/C; T4 clip PROCEDURE: ??Informed consent was obtain ed from the patient. ??With the patient upright on the stereotactic tabl e, the calcifications were localized and stereotactic coordinates o btained. ??The breast was cleansed with ChloraPrep. ??Buffered lidocaine wa s used for local anesthesia. A Suros Eviva (9g) needle was then advance d and 6 core biopsies obtained using vacuum assist while lidocaine with epinephrine was instilled into the biopsy site. Specimen radiograph dem onstrates microcalcifications within the specimen. ??A clip was placed at the biopsy site. A two-view digital mammogram was performed to verif y the clip placement and any complications. The mammogram showed that the clip is not visible on the CC view due to its very posterior location. ??It may be slightly medial/inferior based on the tomosynthes is ML view, but estimated at less than 1 cm migration. Manual compression was held post-procedu re, to ensure hemostasis. ??The patient tolerated this well. ?? Saray Barrera MD RAD [facility] documented in this encounter Visit Diagnoses Diagnosis Abnormal mammogram Abnormal mammogram, unspecified documented in this encounter Care Teams Breakfast Attendant Relationship Specialty Start Date End Date Mary Kay Lr, PANTRY ATTENDANT, CORPORATE RESPONSIBILITY OFFICER PCP - General Nurse Practitioner 12/01/17 04/23/21 [address] [place] [address] documented as of this encounter
--- OUTSIDE RECORDS SUMMARY | 2021-11-06 20:41 | XMS_ITS | Encounter Summary ---
:1975 Author Organization [email or web address] Address [address] [place] [address] Care Team Providers Name Role Phone Mary Kay Lr APRN, CNP Primary Care Provider [phone] Reason for Visit Reason Comments RESULTS, TEST 12/07 right breast biopsies Encounter Details Date Type Department Care Team Description 12/09/2019 Telephone [facility] Thor Parker, RESULTS, TEST (12/07 [place] [facility] MARQUES Muller CNP right breast [address] [facility]. [address] [facility] biopsies) [place] [address] [place] [address] [phone] (Wo rk) Social History Tobacco Use Types Packs/Day Years Used Date Smoking Tobacco: Never Smokeless Tobacco: Never Alcohol Use Standard Drinks/Week Comments Yes 7 (1 standard drink = 0.6 oz pure alcoho l) Alcohol Habits Answer Date Recorded How often do you have a drink containing 4 or more times a w blackfeet 02/01/2020 alcohol? How many drinks containing alcohol do you have Not asked on a typical day when you are drinking? How often do you have six or more drinks on one Not asked occasion? Comment: Not asked Sex Assigned at Date Recorded Not on file documented as of this encounter Nursing Notes Yohana Ballesteros APRN, CNP - 12/09/2019 3:22 PM CDT Phone call to patient with results of right breast biopsies from 12/07 with pathology of invasive lobular carcinoma at the site of the mass and flat epithelial atypia at the other site. Pathology explained, questions answered and support provided. Appointment provided with Dr. Perez for 12/12 at 2:45pm. Patient verbalized understanding. Sreened for COVID symptoms. Patient denies fever, cough, new loss of taste or smell, shortness of breast, sore throat or close contact in the last 14 days with a person known to have COVID-19 and has not been instructed to self-isolate. She has been instructed to wear a mask for the visit. She may bring 1 visitor to the appointment. Phone number provided and encouraged to call with further questions. Yohana Parker APRN, CHRISTA 12/09/2019, 3:22 PM documented in this encounter Plan of Treatment Not on filedocumented as of this encounter Visit Diagnoses Not on filedocumented in this encounter Care Teams Snuff Blender Relationship Specialty Start Date End Date Mary Kay Lr APRN, PROPERTY DISPOSAL MANAGER PCP - General Nurse Practitioner 12/01/17 04/23/21 [address] [place] [address] documented as of this encounter
--- OUTSIDE RECORDS SUMMARY | 2021-11-06 20:41 | XMS_ITS | Encounter Summary ---
:1975 Author Organization [email or web address] Address [address] [place] [address] Care Team Providers Name Role Phone Mary Kay Lr APRN, FISH BUTCHER Primary Care Provider [phone] Reason for Visit Reason Comments QUESTIONS, GENERAL Encounter Details Date Type Department Care Team Description 12/14/2019 [facility] 401 Chante Hicks MD QUESTIONS, GENERAL Infectious Disease [address] [place] [address] [place] [address] [phone] Social History Tobacco Use Types Packs/Day Years Used Date Smoking Tobacco: Never Smokeless Tobacco: Never Alcohol Use Standard Drinks/Week Comments Yes 7 (1 standard drink = 0.6 oz pure alcoho l) Alcohol Habits Answer Date Recorded How often do you have a drink containing 4 or more times a w [place] 02/01/2020 alcohol? How many drinks containing alcohol do you have Not asked on a typical day when you are drinking? How often do you have six or more drinks on one Not asked occasion? Comment: Not asked Sex Assigned at Date Recorded Not on file documented as of this encounter Nursing Notes Breana Babcock - 12/15/2019 2:31 PM CST Pt scheduled. TUBE RELEASER Merlene Beard - 12/15/2019 10:47 AM CST Left message to return call back to clinic to schedule an appointment. TUBE RELEASER Vicky Son RN - 12/14/2019 3:36 PM CST Tax Agent spoke with the patient. She states the breast cancer seems to be treatable. She wanted to schedule follow up appointment with Dr. Hicks and get her labs drawn. Standing orders were updated. Dr. Hicks's schedule is currently on hold. Will sent to clinical assistants to call her once the scheduleis available. Follow up, ID2. Can be virtual. Vicky Son RN 12/14/2019, 3:46 PM TUBE RELEASER Bryant Brown - 12/14/2019 9:54 AM CST Miscellaneous Questions [Appt Center: If this call is after 3 p.m., communicate to patient: If we are not able to get back to you by the end of the day and your symptoms worsen please contact the Careline at [phone] OR at .] Is this a question/concern or an FYI? Question/Concern What is your question or concern? Pt wanted to let her provider know that she was recently diagnosed with breast cancer and had questions about lab testing and what follow ups he would like to do with her. Have you recently been seen for this? No Is it okay to leave a detailed message on your voicemail? Yes Bryant Brown TUBE RELEASER documented in this encounter Plan of Treatment Scheduled Orders Name Type Priority Associated Diagnoses Order S chedule ALT (SGPT) Lab Routine Asymptomatic HIV Every 3 Mon ths for 12 infection (HRC) Occurrences starting 12/14/2019 unti l 12/13/2022, 3 completed AST Lab Routine Asymptomatic HIV Every 3 Mon ths for 12 infection (HRC) Occurrences starting 12/14/2019 unti l 12/13/2022, 3 completed Bilirubin, Total & Lab Routine Asymptomatic HIV Every 3 Months for 12 Direct infection (HRC) Occurrences starting 12/14/2019 unti l 12/13/2022, 3 completed BUN Lab Routine Asymptomatic HIV Every 3 Mon ths for 12 infection (HRC) Occurrences starting 12/14/2019 unti l 12/13/2022, 3 completed Complete Blood Lab Routine Asymptomatic HIV Every 3 M onths for 12 Count-W/Diff infection (HRC) Occurrences starting 12/14/2019 unti l 12/13/2022, 3 completed Creatinine / GFR Lab Routine Asymptomatic HIV Every 3 Months for 12 infection (HRC) Occurrences starting 12/14/2019 unti l 12/13/2022, 3 completed HIV-1 RNA Quant by Microbiology Routine Asymptomatic HIV Every 3 Months for 12 TMA infection (HRC) Occurrences starting 12/14/2019 unti l 12/13/2022, 3 completed T Cell Ratio (blood Lab Routine Asymptomatic HIV Ever y 6 Months for 6 only) infection (HRC) Occurrences starting 12/14/2019 unti l 12/13/2022, 3 completed Chlamydia & GC (14 Microbiology Routine Asymptomatic HIV Order ed: 12/14/2019 Years and Older) infection (HRC) UA Micro If (ONLY Lab Routine Asymptomatic HIV Every 6 Months for 6 FOR PTS ON TENOFOVIR infection (HRC) Occu rrences starting OR TRUVADA) 12/14/2019 unti l 12/13/2022, 3 completed documented as of this encounter Results (ABNORMAL) UA Micro If: Clean Catch (10/11/2021 5:10 PM CDT) [facility] Method Time Signature Urine Color Straw Straw-Yellow 10/11/2021 [facility] 5:14 PM CDT LABORATORY Urine Clarity Clear Clear 10/11/2021 [facility] 5:14 PM CDT LABORATORY Specific <=1.005 (A) 1.005 - 10/11/2021 [facility] [place], 1.030 5:14 PM CDT LABORATORY Urine PH Urine 6.5 5.0 - 8.0 10/11/2021 [facility] 5:14 PM CDT LABORATORY Protein, Negative Neg/Trace 10/11/2021 [facility] Urine Qual 5:14 PM CDT LABORATORY (mg/dL) Glucose Urine Negative Negative 10/11/2021 [facility] Qual (mg/dL) 5:14 PM CDT LABORATORY Ketones, Negative Negative 10/11/2021 [facility] Urine (mg/dL) 5:14 PM CDT LABORATORY Urobilinogen, 0.2 <2.0 10/11/2021 [facility] Urine (EU/dL) 5:14 PM CDT LABORATORY Bilirubin Negative Negative 10/11/2021 [facility] Urine 5:14 PM CDT LABORATORY Blood, Urine Negative Neg/Trace 10/11/2021 [facility] 5:14 PM CDT LABORATORY Nitrite Urine Negative Negative 10/11/2021 [facility] 5:14 PM CDT LABORATORY Leukocyte Negative Negative 10/11/2021 [facility] Est. 5:14 PM CDT LABORATORY Urine Source Clean Catch 10/11/2021 [facility] 5:14 PM CDT LABORATORY Specimen Anatomical Collection Method Collection Time Receive d Time (Source) Location / / Volume Laterality Urine URINE SPECIMEN Non-blood 10/11/2021 5:10 PM 5:10 COLLECTION, CLEAN Collection / CDT PM CDT CATCH / Unknown Unknown Mike Hicks MD LAB_1 Performing Organization Address City/[facility]/ZIP Code Phon e Number [facility] [address] [place] [address] Treponema Screen (10/11/2021 4:30 PM CDT) [facility] Method Time Signature Treponema Screen 0.106 {s_co_ratio 10/11/2021 [facility] Result } 10:16 PM LABORATORY CDT Treponema Screen Non Non 10/11/2021 [facility] Interpretation Reactive Reactive 10:16 PM LABORATORY CDT Specimen Anatomical Collection Method / Collection Time Recei bruno Time (Source) Location / Volume Laterality Blood Venipuncture / 10/11/2021 4:30 10/11/2021 4:39 Unknown PM CDT PM CDT Mike Hicks MD LAB_1 Performing Organization Address City/State/ZIP Code Phon e Number [facility] [address] [place] [address] T Cell Ratio (blood only) (10/11/2021 4:30 PM CDT) P athologist Signature CD3 (T Cells) % 80.6 62.1 - 10/12/2021 [facility] 85.0 % 1:38 PM CDT HOSPITAL CD3 (T Cells) 1,331 500 - 10/12/2021 [facility] Absolute 2,544 /UL 1:38 PM CDT HOSPITAL CD3/CD4 (T 42.5 31.6 - 10/12/2021 [facility] [place] Cells) % 65.7 % 1:38 PM CDT HOSPITAL CD3/CD4 (T 703 337 - 10/12/2021 [facility] [place] Cells) 1,687 /UL 1:38 PM CDT HOSPITAL Absolute CD3/CD8 (T 38.0 10.0 - 10/12/2021 [facility] Suppressor/Cyto 40.0 % 1:38 PM CDT HOSPITAL toxic Cells) % CD3/CD8 (T 628 140 - 907 10/12/2021 [facility] Suppressor/Cyto /UL 1:38 PM CDT HOSPITAL toxic Cells) Absolute CD4/CD8 Ratio 1.1 0.8 - 3.7 10/12/2021 [facility] 1:38 PM CDT HOSPITAL Specimen Anatomical Collection Method / Collection Time Recei bruno Time (Source) Location / Volume Laterality Blood Venipuncture / 10/11/2021 4:30 10/11/2021 4:39 Unknown PM CDT PM CDT Mike Hicks MD LAB_1 Performing Organization Address City/State/[place] [address] (ABNORMAL) Lipid Panel and Direct LDL(If Needed) (10/11/2021 4:30 PM CDT) [facility] Method Time Signature Cholesterol 179 0 - 199 10/11/2021 [facility] mg/dL 6:34 PM CDT LABORATORY Triglyceride 173 (H) <=149 10/11/2021 [facility] mg/dL 6:34 PM CDT LABORATORY HDL Cholesterol 52 >=40 10/11/2021 [facility] mg/dL 6:34 PM CDT LABORATORY LDL, Calculated 92 <130 10/11/2021 [facility] mg/dL 6:34 PM CDT LABORATORY Non HDL Chol, 127 <=159 10/11/2021 [facility] Calculated mg/dL 6:34 PM CDT LABORATORY Cholesterol/HDL 3.4 10/11/2021 [facility] Ratio 6:34 PM CDT LABORATORY Hours Fasting 0 10/11/2021 [facility] 6:34 PM CDT LABORATORY Specimen Anatomical Collection Method / Collection Time Recei bruno Time (Source) Location / Volume Laterality Blood Venipuncture / 10/11/2021 4:30 10/11/2021 4:39 Unknown PM CDT PM CDT Mike Hicks MD LAB_1 Performing Organization Address [facility] Code Phon e Number [facility] [id number] [place] [address] HIV-1 RNA Quant by TMA (10/11/2021 4:30 PM CDT) Patholo gist Method Time Signature HIV Interp Not Not 10/14/2021 [facility] Detected Detected 12:08 PM CENTRAL LAB CDT HIV Copies <30 <30 10/14/2021 [facility] per/ml copies/mL 12:08 PM CENTRAL LAB CDT HIV Log <1.47 <1.47 log 10/14/2021 [facility] Copies/ml copies/mL 12:08 PM CENTRAL LAB CDT Specimen Anatomical Collection Method / Collection Time Recei bruno Time (Source) Location / Volume Laterality Blood Venipuncture / 10/11/2021 4:30 10/11/2021 4:39 Unknown PM CDT PM CDT [facility] LAB - 10/14/2021 12:08 PM CDT Test performed by Primary Special Educator Mediated Amplification (TMA). Mike Hicks MD LAB_1 Performing Organization Address [facility] Phon e Number [facility] [address] [address] Hgb A1c (10/11/2021 4:30 PM CDT) P athologist Signature Hemoglobin A1C 5.1 <=5.6 % 10/11/2021 [facility] 6:09 PM CDT LABORATORY Specimen Anatomical Collection Method / Collection Time Recei bruno Time (Source) Location / Volume Laterality Blood Venipuncture / 10/11/2021 4:30 10/11/2021 4:39 Unknown PM CDT PM CDT [facility] LABORATORY - 10/11/2021 6:09 PM CDT This Hemoglobin A1c assay has significan t interference with elevated Hemoglobin (HbF) and other Hemoglobin variants. In patients with results that do not correlate clinically, contact the laboratory for f urther direction. Mkie Hicks MD LAB_1 Performing Organization Address [facility]/ZIP Code Phon e Number [facility] [address] [place] [address] Creatinine / GFR (10/11/2021 4:30 PM CDT) athologist Signature Creatinine 0.70 0.55 - 10/11/2021 [facility] 1.02 mg/dL 6:34 PM CDT LABORATORY GFR, Estimated >60 >60 10/11/2021 [facility] mL/min/1.7 6:34 PM CDT LABORATORY 3m2 Specimen Anatomical Collection Method / Collection Time Recei bruno Time (Source) Location / Volume Laterality Blood Venipuncture / 10/11/2021 4:30 10/11/2021 4:39 Unknown PM CDT PM CDT Mike Hicks MD LAB_1 Performing Organization Address [facility]/ZIP Code Phon e Number [facility] [address] [place] [address] BUN (10/11/2021 4:30 PM CDT) athologist Signature BUN 15 7 - 26 10/11/2021 [facility] mg/dL 6:34 PM CDT LABORATORY Specimen Anatomical Collection Method / Collection Time Recei bruno Time (Source) Location / Volume Laterality Blood Venipuncture / 10/11/2021 4:30 10/11/2021 4:39 Unknown PM CDT PM CDT Mike Hicks MD LAB_1 Performing Organization Address [facility]/ZIP Code Phon e Number [facility] [address] [place] [address] Bilirubin, Total & Direct (10/11/2021 4:30 PM CDT) athologist Signature Bilirubin, 0.3 0.2 - 1.2 10/11/2021 [facility] Total mg/dL 6:34 PM CDT LABORATORY Bilirubin, 0.1 0.0 - 0.5 10/11/2021 [facility] Direct mg/dL 6:34 PM CDT LABORATORY Specimen Anatomical Collection Method / Collection Time Recei bruno Time (Source) Location / Volume Laterality Blood Venipuncture / 10/11/2021 4:30 10/11/2021 4:39 Unknown PM CDT PM CDT Mike Hicks MD LAB_1 Performing Organization Address [facility]/ZIP Code Phon e Number [facility] [address] [place] [address] AST (10/11/2021 4:30 PM CDT) P athologist Signature AST (SGOT) 26 10 - 40 U/L 10/11/2021 [facility] 6:34 PM CDT LABORATORY Specimen Anatomical Collection Method / Collection Time Recei bruno Time (Source) Location / Volume Laterality Blood Venipuncture / 10/11/2021 4:30 10/11/2021 4:39 Unknown PM CDT PM CDT Mike Hicks MD LAB_1 Performing Organization Address [facility] Phon e Number [facility] [address] [place] [address] ALT (SGPT) (10/11/2021 4:30 PM CDT) P athologist Signature ALT (SGPT) 20 0 - 55 U/L 10/11/2021 [facility] 6:34 PM CDT LABORATORY Specimen Anatomical Collection Method / Collection Time Recei bruno Time (Source) Location / Volume Laterality Blood Venipuncture / 10/11/2021 4:30 10/11/2021 4:39 Unknown PM CDT PM CDT Mike Hicks MD LAB_1 Performing Organization Address [facility] Phon e Number [facility] [address] [place] [address] UA Micro If (ONLY FOR PTS ON TENOFOVIR OR TRUVADA) (12/21/2020 12:25 PM AIR TUBE RELEASER) [facility] gist Method Time Signature Urine Color Straw Straw-Yellow 12/21/2020 [facility] 12:42 PM LABORATORY AIR TUBE RELEASER Urine Clarity Clear Clear 12/21/2020 [facility] 12:42 PM LABORATORY AIR TUBE RELEASER Specific 1.010 1.005 - 12/21/2020 [facility] [place], 1.030 12:42 PM LABORATORY Urine AIR TUBE RELEASER PH Urine 7.0 5.0 - 8.0 12/21/2020 [facility] 12:42 PM LABORATORY AIR TUBE RELEASER Protein, Negative Neg/Trace 12/21/2020 [facility] Urine Qual 12:42 PM LABORATORY (mg/dL) AIR TUBE RELEASER Glucose Urine Negative Negative 12/21/2020 [facility] Qual (mg/dL) 12:42 PM LABORATORY AIR TUBE RELEASER Ketones, Negative Negative 12/21/2020 [facility] Urine (mg/dL) 12:42 PM LABORATORY AIR TUBE RELEASER Urobilinogen, 0.2 <2.0 12/21/2020 [facility] Urine (EU/dL) 12:42 PM LABORATORY AIR TUBE RELEASER Bilirubin Negative Negative 12/21/2020 [facility] Urine 12:42 PM LABORATORY AIR TUBE RELEASER Blood, Urine Negative Neg/Trace 12/21/2020 [facility] 12:42 PM LABORATORY AIR TUBE RELEASER Nitrite Urine Negative Negative 12/21/2020 [facility] 12:42 PM LABORATORY AIR TUBE RELEASER Leukocyte Negative Negative 12/21/2020 [facility] Est. 12:42 PM LABORATORY AIR TUBE RELEASER Urine Source Clean Catch 12/21/2020 [facility] 12:42 PM LABORATORY AIR TUBE RELEASER Specimen Anatomical Collection Method Collection Time Receive d Time (Source) Location / / Volume Laterality Urine URINE SPECIMEN Non-blood 12/21/2020 12:25 1 COLLECTION, CLEAN Collection / PM AIR TUBE RELEASER 12:[address] CATCH / Unknown Unknown Mike Hicks MD LAB_1 Performing Organization Address City/State/ZIP Code Phon e Number [facility] [address] [place] [address] Treponema Screen (12/21/2020 12:07 PM AIR TUBE RELEASER) [facility] Method Time Signature Treponema Screen 0.080 {s_co_ratio 12/21/2020 [facility] Result } 5:00 PM AIR TUBE RELEASER LABORATORY Treponema Screen Non Non 12/21/2020 [facility] Interpretation Reactive Reactive 5:00 PM AIR TUBE RELEASER LABORATORY Specimen Anatomical Collection Method / Collection Time Recei bruno Time (Source) Location / Volume Laterality Blood Venipuncture / 12/21/2020 12:07 1 Unknown PM AIR TUBE RELEASER 12:12 PM AIR TUBE RELEASER Mike Hicks MD LAB_1 Performing Organization Address City/State/ZIP Code Phon e Number [facility] [address] [place] [address] (ABNORMAL) T Cell Ratio (blood only) (12/21/2020 12:07 PM AIR TUBE RELEASER) athologist Signature CD3 (T Cells) 80.4 62.1 - 12/22/2020 [facility] % 85.0 % 11:16 AM [facility] CD3 (T Cells) 1,143 500-2,544 12/22/2020 [facility] Absolute /UL 11:16 AM [facility] CD3/CD4 (T 40.0 31.6 - 12/22/2020 [facility] [place] Cells) 65.7 % 11:16 AM [facility] % CD3/CD4 (T 569 337-1,687 12/22/2020 [facility] [place] Cells) /UL 11:16 AM [facility] Absolute CD3/CD8 (T 41.9 (H) 10.0 - 12/22/2020 [facility] Suppressor/Cyt 40.0 % 11:16 AM [facility] otoxic Cells) % CD3/CD8 (T 596 140 - 907 12/22/2020 [facility] Suppressor/Cyt /UL 11:16 AM [facility] otoxic Cells) Absolute CD4/CD8 Ratio 1.0 0.8 - 3.7 12/22/2020 [facility] 11:16 AM [facility] Specimen Anatomical Collection Method / Collection Time Recei bruno Time (Source) Location / Volume Laterality Blood Venipuncture / 12/21/2020 12:07 1 Unknown PM AIR TUBE RELEASER 12:12 PM AIR TUBE RELEASER Mike Hicks MD LAB_1 Performing Organization Address City/State/ZIP Code Phon e Number [address] [address] (ABNORMAL) Lipid Panel and Direct LDL(If Needed) (12/21/2020 12:07 PM AIR TUBE RELEASER) Patholo gist Method Time Signature Cholesterol 196 0 - 199 12/21/2020 [facility] mg/dL 3:04 PM AIR TUBE RELEASER LABORATORY Triglyceride 170 (H) <=149 12/21/2020 [facility] mg/dL 3:04 PM AIR TUBE RELEASER LABORATORY HDL Cholesterol 60 >=40 12/21/2020 [facility] mg/dL 3:04 PM AIR TUBE RELEASER LABORATORY LDL, Calculated 102 <130 12/21/2020 [facility] mg/dL 3:04 PM AIR TUBE RELEASER LABORATORY Non HDL Chol, 136 <=159 12/21/2020 [facility] Calculated mg/dL 3:04 PM AIR TUBE RELEASER LABORATORY Cholesterol/HDL 3.3 12/21/2020 [facility] Ratio 3:04 PM AIR TUBE RELEASER LABORATORY Hours Fasting N/A 12/21/2020 [facility] 3:04 PM AIR TUBE RELEASER LABORATORY Specimen Anatomical Collection Method / Collection Time Recei bruno Time (Source) Location / Volume Laterality Blood Venipuncture / 12/21/2020 12:07 1 Unknown PM AIR TUBE RELEASER 12:12 PM AIR TUBE RELEASER Mike Hicks MD LAB_1 Performing Organization Address City/State/ZIP Code Phon e Number [facility] [address] [place] [address] HIV-1 RNA Quant by TMA (12/21/2020 12:07 PM AIR TUBE RELEASER) Patholo gist Method Time Signature HIV Interp Not Not 12/26/2020 [facility] Detected Detected 12:07 PM CENTRAL LAB AIR TUBE RELEASER HIV Copies <30 <30 12/26/2020 [facility] per/ml copies/mL 12:07 PM CENTRAL LAB AIR TUBE RELEASER HIV Log <1.47 <1.47 log 12/26/2020 [facility] Copies/ml copies/mL 12:07 PM CENTRAL LAB AIR TUBE RELEASER Specimen Anatomical Collection Method / Collection Time Recei bruno Time (Source) Location / Volume Laterality Blood Venipuncture / 12/21/2020 12:07 1 Unknown PM AIR TUBE RELEASER 12:12 PM AIR TUBE RELEASER Narrative [facility] CENTRAL LAB - 12/26/2020 12:07 PM AIR TUBE RELEASER Test performed by Primary Special Educator Mediated Amplification (TMA). Mike Hicks MD LAB_1 Performing Organization Address City/State/ZIP Code Phon e Number [facility] LAB [address] [address] Hgb A1c (12/21/2020 12:07 PM AIR TUBE RELEASER) P athologist Signature Hemoglobin A1C 4.9 <=5.6 % 12/21/2020 [facility] 2:11 PM AIR TUBE RELEASER LABORATORY Specimen Anatomical Collection Method / Collection Time Recei bruno Time (Source) Location / Volume Laterality Blood Venipuncture / 12/21/2020 12:07 1 Unknown PM AIR TUBE RELEASER 12:12 PM AIR TUBE RELEASER Narrative [facility] - 12/21/2020 2:11 PM AIR TUBE RELEASER This Hemoglobin A1c assay has significan t interference with elevated Hemoglobin (HbF) and other Hemoglobin variants. In patients with results that do not correlate clinically, contact the laboratory for f urther direction. Mike Hicks MD LAB_1 Performing Organization Address [facility] Code Phon e Number [facility] [address] [place] [address] Creatinine / GFR (12/21/2020 12:07 PM AIR TUBE RELEASER) athologist Signature Creatinine 0.70 0.55 - 12/21/2020 [facility] 1.02 mg/dL 3:04 PM AIR TUBE RELEASER LABORATORY GFR, Estimated >60 >60 12/21/2020 [facility] mL/min/1.7 3:04 PM AIR TUBE RELEASER LABORATORY 3m2 Specimen Anatomical Collection Method / Collection Time Recei bruno Time (Source) Location / Volume Laterality Blood Venipuncture / 12/21/2020 12:07 1 Unknown PM AIR TUBE RELEASER 12:12 PM AIR TUBE RELEASER Mike Hicks MD LAB_1 Performing Organization Address [facility] Phon e Number [facility] [address] [place] [address] BUN (12/21/2020 12:07 PM AIR TUBE RELEASER) athologist Signature BUN 13 7 - 26 12/21/2020 [facility] mg/dL 3:04 PM AIR TUBE RELEASER LABORATORY Specimen Anatomical Collection Method / Collection Time Recei bruno Time (Source) Location / Volume Laterality Blood Venipuncture / 12/21/2020 12:07 1 Unknown PM AIR TUBE RELEASER 12:12 PM AIR TUBE RELEASER Mike Hicks MD LAB_1 Performing Organization Address [facility] Phon e Number [facility] [address] [place] [address] Bilirubin, Total & Direct (12/21/2020 12:07 PM AIR TUBE RELEASER) athologist Signature Bilirubin, 0.6 0.2 - 1.2 12/21/2020 [facility] Total mg/dL 3:04 PM AIR TUBE RELEASER LABORATORY Bilirubin, 0.2 0.0 - 0.5 12/21/2020 [facility] Direct mg/dL 3:04 PM AIR TUBE RELEASER LABORATORY Specimen Anatomical Collection Method / Collection Time Recei bruno Time (Source) Location / Volume Laterality Blood Venipuncture / 12/21/2020 12:07 1 Unknown PM AIR TUBE RELEASER 12:12 PM AIR TUBE RELEASER Mike Hicks MD LAB_1 Performing Organization Address [facility]/ZIP Code Phon e Number [facility] [address] [place] [address] AST (12/21/2020 12:07 PM AIR TUBE RELEASER) athologist Signature AST (SGOT) 21 10 - 40 U/L 12/21/2020 [facility] 3:04 PM AIR TUBE RELEASER LABORATORY Specimen Anatomical Collection Method / Collection Time Recei bruno Time (Source) Location / Volume Laterality Blood Venipuncture / 12/21/2020 12:07 1 Unknown PM AIR TUBE RELEASER 12:12 PM AIR TUBE RELEASER Mike Hicks MD LAB_1 Performing Organization Address [facility]/ZIP Code Phon e Number [facility] [address] [place] [address] ALT (SGPT) (12/21/2020 12:07 PM AIR TUBE RELEASER) athologist Signature ALT (SGPT) 22 0 - 55 U/L 12/21/2020 [facility] 3:04 PM AIR TUBE RELEASER LABORATORY Specimen Anatomical Collection Method / Collection Time Recei bruno Time (Source) Location / Volume Laterality Blood Venipuncture / 12/21/2020 12:07 1 Unknown PM AIR TUBE RELEASER 12:12 PM AIR TUBE RELEASER Mike Hicks MD LAB_1 Performing Organization Address [facility]/ZIP Code Phon e Number [facility] [address] [place] [address] UA Micro If (ONLY FOR PTS ON TENOFOVIR OR TRUVADA) (12/21/2019 1:34 PM AIR TUBE RELEASER) [facility] Method Time Signature Urine Color Straw Straw-Yellow 12/21/2019 [facility] 2:59 PM [facility] Urine Clarity Clear Clear 12/21/2019 [facility] 2:59 PM [facility] Specific 1.005 1.005 - 12/21/2019 [facility] [place], 1.030 2:59 PM [facility] Urine PH Urine 8.0 5.0 - 8.0 12/21/2019 [facility] 2:59 PM [facility] Protein, Negative Negative 12/21/2019 [facility] Urine Qual 2:59 PM [facility] (mg/dL) Glucose Urine Negative Negative 12/21/2019 [facility] Qual (mg/dL) 2:59 PM [facility] Ketones, Negative Negative 12/21/2019 [facility] Urine (mg/dL) 2:59 PM [facility] Urobilinogen, <2.0 <2.0 12/21/2019 [facility] Urine (EU/dL) 2:59 PM [facility] Bilirubin Negative Negative 12/21/2019 [facility] Urine 2:59 PM [facility] Blood, Urine Negative Neg/Trace 12/21/2019 [facility] 2:59 PM [facility] Nitrite Urine Negative Negative 12/21/2019 [facility] 2:59 PM [facility] Leukocyte Negative Negative 12/21/2019 [facility] Est. 2:59 PM [facility] Urine Source Clean Catch 12/21/2019 [facility] 2:59 PM [facility] Specimen Anatomical Collection Method Collection Time Receive d Time (Source) Location / / Volume Laterality Urine URINE SPECIMEN Non-blood 12/21/2019 1:34 PM 020 2:55 COLLECTION, CLEAN Collection / AIR TUBE RELEASER PM AIR TUBE RELEASER CATCH / Unknown Unknown Mike Hicks MD LAB_1 Performing Organization Address City/State/ZIP Code Phon e Number [address] [address] Treponema Screen (12/21/2019 1:33 PM AIR TUBE RELEASER) [facility] Method Time Signature Treponema Screen 0.093 {s_co_ratio 12/22/2019 [facility] Result } 10:59 AM LABORATORY AIR TUBE RELEASER Treponema Screen Non Non 12/22/2019 [facility] Interpretation Reactive Reactive 10:59 AM LABORATORY AIR TUBE RELEASER Specimen Anatomical Collection Method / Collection Time Recei bruno Time (Source) Location / Volume Laterality Blood Lab OP Venipuncture 12/21/2019 1:33 12/20 1:38 / Unknown PM AIR TUBE RELEASER PM AIR TUBE RELEASER Mike Hicks MD LAB_1 Performing Organization Address City/State/ZIP Code Phon e Number [facility] [address] [place] [address] T Cell Ratio (blood only) (12/21/2019 1:33 PM AIR TUBE RELEASER) P athologist Signature CD3 (T Cells) % 79.1 62.1 - 12/21/2019 [facility] 85.0 % 4:11 PM [facility] CD3 (T Cells) 1,232 500-2,544 12/21/2019 [facility] Absolute /UL 4:11 PM [facility] CD3/CD4 (T 47.1 31.6 - 12/21/2019 [facility] [place] Cells) % 65.7 % 4:11 PM [facility] CD3/CD4 (T 734 337-1,687 12/21/2019 [facility] [place] Cells) /UL 4:11 PM [facility] Absolute CD3/CD8 (T 33.5 10.0 - 12/21/2019 [facility] Suppressor/Cyto 40.0 % 4:11 PM [facility] toxic Cells) % CD3/CD8 (T 521 140 - 907 12/21/2019 [facility] Suppressor/Cyto /UL 4:11 PM [facility] toxic Cells) Absolute CD4/CD8 Ratio 1.4 0.8 - 3.7 12/21/2019 [facility] 4:11 PM [facility] Specimen Anatomical Collection Method / Collection Time Recei bruno Time (Source) Location / Volume Laterality Blood Lab OP Venipuncture 12/21/2019 1:33 12/20 1:38 / Unknown PM AIR TUBE RELEASER PM AIR TUBE RELEASER Mike Hicks MD LAB_1 Performing Organization Address City/State/ZIP Code Phon e Number [address] [address] (ABNORMAL) Lipid Panel and Direct LDL(If Needed) (12/21/2019 1:33 PM AIR TUBE RELEASER) [facility] Method Time Signature Cholesterol 184 0 - 199 12/21/2019 [facility] mg/dL 2:13 PM [facility] Triglyceride 165 (H) <=149 12/21/2019 [facility] mg/dL 2:13 [facility] HDL Cholesterol 64 >=40 mg/dL 12/21/2019 [facility] 2:13 [facility] LDL, Calculated 87 <130 mg/dL 12/21/2019 [facility] 2:13 [facility] Non HDL Chol, 120 mg/dL 12/21/2019 [facility] Calculated 2:13 [facility] Cholesterol/HDL 2.9 12/21/2019 [facility] Ratio 2:13 [facility] Hours Fasting N/A 12/21/2019 [facility] 2:13 [facility] Specimen Anatomical Collection Method / Collection Time Recei bruno Time (Source) Location / Volume Laterality Blood Lab OP Venipuncture 12/21/2019 1:33 12/20 1:38 / Unknown PM AIR TUBE RELEASER PM AIR TUBE RELEASER Mike Hicks MD LAB_1 Performing Organization Address City/[facility]/ZIP [facility] Phon e Number [address] [address] HIV-1 RNA Quant by TMA (12/21/2019 1:33 PM AIR TUBE RELEASER) [facility] [employer] Method Time Signature HIV Interp Not Not 12/22/2019 [facility] Detected Detected 11:12 AM CENTRAL LAB AIR TUBE RELEASER HIV Copies <30 <30 12/22/2019 [facility] per/ml copies/mL 11:12 AM CENTRAL LAB AIR TUBE RELEASER HIV Log <1.47 <1.47 log 12/22/2019 [facility] Copies/ml copies/mL 11:12 AM CENTRAL LAB AIR TUBE RELEASER Specimen Anatomical Collection Method / Collection Time Recei bruno Time (Source) Location / Volume Laterality Blood Lab OP Venipuncture 12/21/2019 1:33 12/20 1:38 / Unknown PM AIR TUBE RELEASER PM AIR TUBE RELEASER Narrative [facility] C[facility] - 12/22/2019 11:12 AM AIR TUBE RELEASER Test performed by Primary Special Educator Mediated Amplification. Mike Hicks MD LAB_1 Performing Organization Address City/State/ZIP Code Phon e Number [facility] [address] [address] Hgb A1c (12/21/2019 1:33 PM AIR TUBE RELEASER) [facility] gist Method Time Signature Hemoglobin A1C 4.7 <=5.6 % 12/21/2019 [facility] 5:09 PM AIR TUBE RELEASER CENTRAL LAB Specimen Anatomical Collection Method / Collection Time Recei bruno Time (Source) Location / Volume Laterality Blood Lab OP Venipuncture 12/21/2019 1:33 12/20 1:38 / Unknown PM AIR TUBE RELEASER PM AIR TUBE RELEASER Mike Hicks MD LAB_1 Performing Organization Address [facility] Phon e Number [facility] [address] [address] Creatinine / GFR (12/21/2019 1:33 PM AIR TUBE RELEASER) athologist Signature Creatinine 0.70 0.55 - 12/21/2019 [facility] 1.02 mg/dL 2:13 PM [facility] GFR, Estimated >60 >60 12/21/2019 [facility] mL/min/1.7 2:13 PM AIR TUBE RELEASER [facility] 3m2 Specimen Anatomical Collection Method / Collection Time Recei bruno Time (Source) Location / Volume Laterality Blood Lab OP Venipuncture 12/21/2019 1:33 12/20 1:38 / Unknown PM AIR TUBE RELEASER PM AIR TUBE RELEASER Mike Hicks MD LAB_1 Performing Organization Address [facility] Phon e Number [address] [address] BUN (12/21/2019 1:33 PM AIR TUBE RELEASER) athologist Signature BUN 11 7 - 26 12/21/2019 [facility] mg/dL 2:13 [facility] Specimen Anatomical Collection Method / Collection Time Recei bruno Time (Source) Location / Volume Laterality Blood Lab OP Venipuncture 12/21/2019 1:33 12/20 1:38 / Unknown PM AIR TUBE RELEASER PM AIR TUBE RELEASER Mike Hicks MD LAB_1 Performing Organization Address [facility] Phon e Number [address] [address] Bilirubin, Total & Direct (12/21/2019 1:33 PM AIR TUBE RELEASER) athologist Signature Bilirubin, 0.2 0.0 - 0.5 12/21/2019 [facility] Direct mg/dL 2:13 [facility] Bilirubin, 0.3 0.2 - 1.2 12/21/2019 [facility] Total mg/dL 2:13 PM [facility] Specimen Anatomical Collection Method / Collection Time Recei bruno Time (Source) Location / Volume Laterality Blood Lab OP Venipuncture 12/21/2019 1:33 12/20 1:38 / Unknown PM AIR TUBE RELEASER PM AIR TUBE RELEASER Mike Hicks MD LAB_1 Performing Organization Address [facility]/ZIP [facility] Phon e Number [address] [address] AST (12/21/2019 1:33 PM AIR TUBE RELEASER) P athologist Signature AST (SGOT) 19 10 - 40 U/L 12/21/2019 [facility] 2:13 [facility] Specimen Anatomical Collection Method / Collection Time Recei bruno Time (Source) Location / Volume Laterality Blood Lab OP Venipuncture 12/21/2019 1:33 12/20 1:38 / Unknown PM AIR TUBE RELEASER PM AIR TUBE RELEASER Mike Hicks MD LAB_1 Performing Organization Address [facility]/ZIP Code Phon e Number [address] [address] ALT (SGPT) (12/21/2019 1:33 PM AIR TUBE RELEASER) P athologist Signature ALT (SGPT) 22 0 - 55 U/L 12/21/2019 [facility] 2:13 [facility] Specimen Anatomical Collection Method / Collection Time Recei bruno Time (Source) Location / Volume Laterality Blood Lab OP Venipuncture 12/21/2019 1:33 12/20 1:38 / Unknown PM AIR TUBE RELEASER PM AIR TUBE RELEASER Mike Hicks MD LAB_1 Performing Organization Address City/[facility]/ZIP [facility] Phon e Number [address] [address] documented in this encounter Visit Diagnoses Diagnosis Asymptomatic HIV infection (HRC) - Prima ry Asymptomatic human immunodeficiency viru s (HIV) infection status documented in this encounter Care Teams Policy Writer Sales Relationship Specialty Start Date End Date Mary Kay Lr, FLAT SPRING ASSEMBLER, FISH BUTCHER PCP - General Nurse Practitioner 12/01/17 04/23/21 [address] [place] [address] documented as of this encounter
--- OUTSIDE RECORDS SUMMARY | 2021-11-06 20:41 | XMS_ITS | Encounter Summary ---
:1975 Author Organization [facility] Address [address], [place] [address] Care Team Providers Name Role Phone Mary Kay Lr APRN, PAIN MANAGEMENT NURSE Primary Care Provider [phone] Reason for Visit Consult/Transfer Care (Routine) - Closed Specialty Diagnoses / Procedures Referred By Contact Refer red To Contact Diagnoses Malignant neoplasm of overlapping sites of right breast in female, estrogen receptor positive (HRC) Briana Perez MB, [address] [address] Referral ID Status Reason Start Date Expiration Date Visits Requ ested Visits Authorized [id number] Closed 12/13/2019 03/13/2021 1 1 Encounter Details Date Type Department Care Team Description 12/20/2019 Telemedicine [facility] Cancer [facility] for nonprocreative genetic counseling (Primary Dx); [facility] at [facility] Cynthia Lim, [facility] Malignant neoplasm of overlapping sites of right breast in female, estrogen receptor positive (HRC) [address] [address] [id number] Social History Tobacco Use Types Packs/Day Years Used Date Smoking Tobacco: Never Smokeless Tobacco: Never Alcohol Use Standard Drinks/Week Comments Yes 7 (1 standard drink = 0.6 oz pure alcoho l) Alcohol Habits Answer Date Recorded How often do you have a drink containing 4 or more times a w [place] 02/01/2020 alcohol? How many drinks containing alcohol do you have Not asked on a typical day when you are drinking? How often do you have six or more drinks on one Not asked occasion? Comment: Not asked Sex Assigned at Date Recorded Not on file documented as of this encounter Progress Notes Cynthia Irby, [facility] - 12/20/2019 2:00 PM CST Images from the original note were not included. GENETIC COUNSELING 12/20/2019 REFERRING PROVIDER Briana Perez INDICATION Diagnosis of breast cancer HISTORY OF PRESENT ILLNESS Ms. Cristiana Castillo is a pleasant 44 y.o. woman referred today due to her recent diagnosis of breast cancer. The purpose of the appointment was to conduct a risk assessment and discuss genetic testing options to investigate the possibility of an inherited cancer susceptibility syndrome. This session was conducted via a video visit and Ms. Castillo attended alone. MEDICAL HISTORY Ms. Castillo was diagnosed with right breast cancer at age 44. Final pathology demonstrated invasive lobular carcinoma, ER Positive, WA Positive, HER2 Negative. Ms. Castillo reports no personal history of any additional cancers. Prior to her diagnosis, Ms. Castillo underwent annual mammography. Ms. Castillo has not had a live . She was 15 years old at menarche. She reports a history of hormonal contraception use for 14 years from age [age]. She is postmenopausal; periods stopped at age 36due to Hysterectomy with BSO for endometriosis. She has used hormone replacement therapy. She used estrogen for 5 years, from age 39 to 44 Ms. The patient reports consuming 7-14 alcoholic beverages in an average week. The patient smoked casually for a time; she estimates that she smoked less than a quarter pack per day for around 4 years. FAMILY HISTORY WITH RESPECT TO CANCER A detailed family history was obtained from the patient and a pedigree was constructed. The pedigreewill be saved as a scanned document and available for viewing under the media tab. Our risk assessment is based upon medical and family history information as provided by the patient, and may change inthe future should new information be obtained. Relevant History: The patient has one brother, age 40, with no history of tumors or cancer. The patient's mother is 66 with no history of tumors or cancer. There has been limited contact with the three uncles and aunt, ages 61-67, but the patient suspects she would have heard about a diagnosis of cancer. The Maternal grandfather of an unspecified cancer at age 70. The patient's father, age 72, was diagnosed with multiple Myeloma at age 66. He has been treated forthis but continues to be monitored. The only aunt passed of MS at 56. The only uncle of esophageal cancer 72 after fighting that disease for three years; he had smoked. Maternal ancestry: Ma[place], [place] Paternal ancestry: [place], [place], Eastern Euro. Ashkenazi Religious ancestry: N/A Consanguinity: N/A PATIENT EDUCATION Cancer is a relatively common diagnosis in the general population, and the majority of these cancersare either sporadic or familial. Hereditary cancers are caused by a pathogenic variant within a single cancer susceptibility gene. Families with hereditary cancers tend to have the following features: specific types of cancer in multiple close relatives and in several consecutive generations, early age at diagnosis (under 50), multiple primary or bilateral tumors, and a lack of environmental or otherknown risk factors. About 12% of women in the [place] will develop breast cancer during their lifetime. It is believed thatapproximately 5%-10% of breast cancers are associated with a strong underlying hereditary susceptibility, such as pathogenic variants in the BRCA1 gene or the BRCA2 gene. Additionally, pathogenic variants in other genes, including PALB2, MARGIE, and CHEK2, among others, have been found to cause a hereditary susceptibility to breast cancer. The cancer risk and inheritance patterns associated with pathogenic variants in these genes were reviewed. If an individual inherits a pathogenic variant, each of his/her children has a 50% chance that he/she also inherited the same pathogenic variant. Medical management options were reviewed, including increased surveillance, chemopreventative medications, and risk-reducing surgeries. PARP inhibitors are a group of chemotherapy drugs being targeted for patients who carry who carry an inherited pathogenic variant in the BRCA1 or BRCA2 genes. Therefore, genetic testing of the BRCA genes could help provide treatment options for these patients. We discussed testing panels that cover many genes known or thought to be associated with hereditary cancer. Pathogenic variants in some of the genes account for rare hereditary cancer syndromes that include significant risks for cancer, while other genes are currently thought of as modifier genes thatmodest to moderate increased risk for cancer. There are several limitations of these tests. The exact cancer risks for some of the genes that are included on these panels are not known at this point intime. Therefore, it may be difficult to provide appropriate screening/medical management recommendations. Additionally, there is a significant chance that a variant of uncertain significance (VUS) may be identified. A VUS is an uninformative result that, in most cases, should not be used to change medical management. We reviewed different hereditary cancer panel test options. Approximate cost, insurance coverage, and laws governing genetic discrimination were reviewed. Risks, benefits, and limitations of genetic testing were discussed. Implications of possible test results,including positive, negative, and variant of uncertain significance, were reviewed. RISK ASSESSMENT The patient's personal and family history is somewhat suggestive of a genetic predisposition to cancer. Ms. Castillo meets current National Comprehensive Cancer Network (NCCN, version 1.2020) Testing Criteria for breast cancer susceptibility genes based on her young age at breast cancer diagnosis. Genetic testing is most informative when it is first performed on a family member with a personal history of cancer, as is the case for this patient. Genetic testing is warranted for the patient as results may assist with treatment recommendations. Additionally, it will help clarify her future cancer risks andwill help direct decisions regarding cancer screening and prevention moving forward. PSYCHOSOCIAL ASSESSMENT The emotional ramifications of genetic testing results were reviewed. There did not appear to be anypsychological issues that suggested Ms. Castillo should not have genetic testing at this time. PLAN ?? Ms. Castillo chose to pursue the STAT Breast Panel with reflex to the Multi- Cancer panel through [facility] with the addition of the breast preliminary evidence genes. This is an appropriate genetic test for Ms. Castillo given her personal and family history. ?? Verbal consent for testing was obtained and possible results were reviewed. ?? Testing will be run from a blood sample collected tomorrow. ?? Results of this testing should be available in 6-13 days from submission of sample. I will reviewthese results with Ms. Castillo when they become available. ?? Screening and management recommendations will be made for the patient and her family members at the time of results disclosure. ?? Ms. Castillo verbalized understanding of the information reviewed. She was encouraged to contact mewith any further questions, concerns, or family history updates and was given my contact information. Total time: 50 minutes Cynthia Irby MS, [facility] Licensed Genetic Counselor Cc: Briana Perez Ms. Cristiana Castillo (via [employer]) IFIED COATINGS INSPECTOR documented in this encounter Plan of Treatment Not on filedocumented as of this encounter Results Miscellaneous Genetic Test (12/21/2019 1:33 PM CERTIFIED COATINGS INSPECTOR) P athologist Signature Result: See Scanned 01/02/2020 [facility] Report 9:04 AM CERTIFIED COATINGS INSPECTOR (NON-INTERFACE D) Specimen Anatomical Collection Method / Collection Time Recei bruno Time (Source) Location / Volume Laterality Blood Lab OP Venipuncture 12/21/2019 1:33 12/20 5:19 / Unknown PM CERTIFIED COATINGS INSPECTOR PM CERTIFIED COATINGS INSPECTOR Narrative This result has an attachment that is no t available. Cynthia Irby [facility] LAB_1 Performing Organization Address City/State/ZIP Code Phon e Number REFERENCE LAB (NON-INTERFACED) REFERENCE LAB (NON-INTERFACED) DO NOT MAIL documented in this encounter Visit Diagnoses Diagnosis Encounter for nonprocreative genetic cou nseling - Primary Malignant neoplasm of overlapping sites of right breast in female, estrogen receptor positive (HRC) documented in this encounter Care Teams Byproducts Operator Relationship Specialty Start Date End Date Mary Kay rL, APPLICATIONS SYSTEMS ENGINEER, PAIN MANAGEMENT NURSE PCP - General Nurse Practitioner 12/01/17 04/23/21 [address] [place], [place] [id number] documented as of this encounter
--- OUTSIDE RECORDS SUMMARY | 2021-11-06 20:41 | XMS_ITS | Encounter Summary ---
:1975 Author Organization [facility] Address [address], [place] [address] Care Team Providers Name Role Phone Mary Kay Lr APRN, CHRISTA Primary Care Provider [phone] Reason for Referral Consult/Transfer Care (Routine) - Closed Specialty Diagnoses / Procedures Referred By Contact Refer red To Contact Diagnoses Malignant neoplasm of overlapping sites of right breast in female, estrogen receptor positive (HRC) Briana Perez MB, [address] [address] Referral ID Status Reason Start Date Expiration Date Visits Requ ested Visits Authorized [id number] Closed 12/27/2019 03/27/2021 1 1 Scheduling Instructions Your provider has recommended an appoint ment with [facility] Oncology [facility] H[facility]ology. You may call to schedule your appointment. We suggest you call your health insurance company about your coverage and benefits for this appointment. onsult/Transfer Care (Routine) - Closed Specialty Diagnoses / Procedures Referred By Contact Refer red To Contact Diagnoses Malignant neoplasm of overlapping sites of right breast in female, estrogen receptor positive (HRC) Briana Perez MB, [address] [address] Referral ID Status Reason Start Date Expiration Date Visits Requ ested Visits Authorized [id number] Closed 12/13/2019 03/13/2021 1 1 Scheduling Instructions If an appointment with [facility] was advised please call [phone] for assistance. We suggest you call your health insurance company about your coverage and benefits for this appo intment. onsult/Transfer Care (Routine) - Closed Specialty Diagnoses / Procedures Referred By Contact Refer red To Contact Diagnoses Malignant neoplasm of overlapping sites of right breast in female, estrogen receptor positive (HRC) Briana Perez MB, [facility] [address] [place] [address] Referral ID Status Reason Start Date Expiration Date Visits Requ ested Visits Authorized Closed 12/13/2019 03/13/2021 1 1 Scheduling Instructions Your provider has recommended an appoint ment with a [facility] Genetic Counselor. You may call [phone] to schedule yo ur appointment. rocedure/Equipment (Routine) - Closed Specialty Diagnoses / Procedures Referred By Contact Refer red To Contact Diagnoses Malignant neoplasm of overlapping sites of right breast in female, estrogen receptor positive (HRC) Briana Perez, Procedures MR Breast Bilat W/WO IV Cont Joycelyn OSORIO, [address] [address] Referral ID Status Reason Start Date Expiration Date Visits Requ ested Visits Authorized Closed 12/13/2019 03/13/2021 1 1 SUPERVISOR Reason for Visit Reason Comments Consult, New Patient 12/07 right breast ILC/FEA Encounter Details Date Type Department Care Team Description 12/13/2019 Office Visit [facility] Briana Perezant neoplasm of [place] JO Ha, [facility] overlapping sites of [address] [facility]. [address] [facility] [place] [address] [place], [place] female, estrogen [phone] receptor positive [phone] (HRC) (Primary Dx) (Work) Social History Tobacco Use Types Packs/Day Years Used Date Smoking Tobacco: Never Smokeless Tobacco: Never Alcohol Use Standard Drinks/Week Comments Yes 7 (1 standard drink = 0.6 oz pure alcoho l) Alcohol Habits Answer Date Recorded How often do you have a drink containing 4 or more times a w samish 02/01/2020 alcohol? How many drinks containing alcohol [...] Taken Comments Blood Pressure - - Pulse 76 12/13/2019 2:45 PM MINE SUPERVISOR Temperature 36.7 ??C (98.1 ??F) 12/13/2019 2:45 PM MINE SUPERVISOR Respiratory Rate 18 12/13/2019 2:45 PM MINE SUPERVISOR Oxygen Saturation - - Inhaled Oxygen Concentration - - Weight 59 kg (130 lb) 12/13/2019 2:45 PM MINE SUPERVISOR Height 170.2 cm (5' 7) 12/13/2019 2:45 PM MINE SUPERVISOR Body Mass Index 20.36 12/13/2019 2:45 PM MINE SUPERVISOR documented in this encounter Patient Instructions Patient InstructionsChriscaiten Yohana Parker, MARQUES, HELPER MAINTENANCE CLEANING - 12/13/2019 2:45 PM CST Cristiana Castillo, It was a pleasure to meet with you today to discuss treatment planning for your diagnosis of right breast invasive lobular carcinoma and flat epithelial atypia. Being diagnosed with breast cancer is difficult. Our Nurse Practitioner Yohana or nurses Mima are available to assist you. Please call Yohana at [phone] or Mima at [phone]. They are available between 8:00 - 4:00 M-F. You have been scheduled for the following appointments: ?? Breast MRI on 12/15/2019 at 6:00 pm at [facility]. Please arrive 30 minutes before your scheduled appointment. Please call [phone] if you have questions about the procedure or need to change your appointment. Your Surgeon or Nurse Practitioner will call you with the test results within 1-2 business days of the exam. ?? Plastic Surgery consultation with Dr. Soto at [facility] on 12/21 at 10:15 am. They are located in [facility], [address], [address], [place] [address]. Please call [phone] if you have questions or wish to change your appointment. ?? Genetics consultation with Cynthiajoss Irby on December 19 at 2:00 pm as a video consult. Please call [phone] if you have questions or wish to change your appointment. This is a 90 minute appointment. You will receive a message from the genetic counselor in your MyChart or e-mail with instructions to answer questions regarding your family history. Please complete this prior to your visit. Youwill have your blood drawn for the genetic testing at the [facility]. You will be instructed when to go to the lab. ?? Social Work consult available with Yojana Forrest or Neisha Keller at the [facility]. Please call [phone] to schedule an appointment. This will be a phone visit. ?? When you are ready to schedule your surgery please call the [facility] at [phone].Your surgery will be scheduled at [facility]. You will be required to wear a mask when you come to the hospital for your surgery. ?? It is recommended that you contact your insurance company to verify coverage of any treatment foryour diagnosis; including testing, surgery or other procedures. ?? YOU WILL BE GIVEN A DATE FOR YOUR SURGERY. YOU WILL RECEIVE A CALL FROM THE OPERATING ROOM NURSESTWO DAYS BEFORE YOUR SURGERY TO INFORM YOU OF THE TIME YOU WILL NEED TO ARRIVE FOR YOUR SURGERY AND INSTRUCTIONS ABOUT THE VISITOR POLICY. ?? You will report to the [facility] prior to your surgery. At that time the radiologist will inject a radioactive tracer into your breast tissue to help Dr. Perez identify the sentinel lymph nodes under your arm. ?? You are invited to attend the Breast Cancer Support Group. We meet on the thursday from 6:00 - 7:30 pm at the , [address] [place] [address] 4th floor Neurology waiting area. Free parking is available, no registration necessary. Please call for more information. This group is on hold. You will receive a flyer once group resumes. Important Information Before Your Surgery ?? Please schedule a Pre-op physical with your primary physician before surgery. This must be scheduled within 30 days of your surgery date. You may schedule the appointment once your surgery date has been confirmed. If your primary provider is outside of the [facility] network, please have them fax a copy of your Pre-op physical to prior to your surgery date. If your physical condition changes, such as you develop a cold or fever, please contact your surgeon's office at the number listed at the end of these instructions. Do not eat or drink anything after midnight the night before your surgery. We may need to cancel your surgery if you have food or liquid in your stomach. You may take your medication with a sip of water the morning of surgery. DO NOT apply any hair care or body products after washing. This includes but is not limited to hair spray, mousse, gels, deodorant, makeup, cologne/perfume, or body lotions. These products contain highalcohol content and increase the risk of fire. Please read and follow the instructions about washing your skin before surgery. This will reduce your chance of infection. You will need someone to drive you home and stay with you for 12 hours after surgery. You should not drive for at least 24 hours after surgery depending on your procedure and while taking narcotic pain medication. Medications The following medications may increase your risk of bleeding and should be stopped before surgery: All herbal medications for two weeks Aspirin for 7 days Ibuprofen (or Aleve, Motrin, Advil, or any other non-steroidal anti-inflammatory over the counter medications) for 7 days. (Tylenol/acetaminophen may be used as needed for pain) If you are on a blood-thinning medication, you may need to stop taking it before surgery. Washing Your Skin Before Surgery It's important to prepare your skin for surgery to reduce the risk of a surgical wound infection. Please take a shower the night before and the morning of your surgery. Please follow these steps during your showers: 1. The night before your surgery: ?? Use a liquid antibacterial soap such as Dial . If you do not have antibacterial soap- a plain, non-perfumed soap will be okay. Take a shower, washing your body as usual. Apply plenty of soap to a clean, wet washcloth. Wash fromyour neck to your feet. Be sure to rinse off all the soap. Using your hand, gently lather the area of your body where you will have the surgery for 5 minutes. Do not use a washcloth or bath scrub. Do not scrub your skin with a brush, washcloth or scrubbie. Do not shave any hair from your body. Wash your hair with your usual shampoo. You can do this either in the evening or in the morning. Dry your body with a newly washed towel. Wear newly washed clothing and sleep in newly washed bedding. 2. The morning of your surgery: Take another shower following the steps above. Dry your body with a newly washed towel. Do not apply deodorant, lotions, or creams. Wear newly washed clothing. 3. Please wear a loose fitting front button or front zippered shirt and a front or back closure bra (not a sport bra) on the day of surgery. Bring a small pillow or rolled towel to place under your seatbelt for the ride home. A surgery nurse will contact you between 8:30 am and 4:30 pm two days before your surgery. The nursewill review instructions, tell you when to arrive for surgery, and answer your questions. Please call [phone] if you will not be home during this time or if it is more convenient for you to call us. Please bring all forms you need to have completed by the surgeon to your office visit or fax them tothe below fax #. Please allow at least 5 business days to have these forms completed. [address] [address] If you need to cancel your surgery, please contact your clinic: [phone] or [phone]. Beforeor after clinic hours or on Thursday or Thursday, call [phone]. You will be scheduled for a post-op appointment with your surgeon for 1-2 weeks after your surgery. At that time you will discuss the surgical pathology report and follow-up referrals and appointments will be made. This will be a phone visit. You will be scheduled with an Oncologist at the [facility] to discuss any further treatment, such as radiation therapy, chemotherapy or other specialized treatment. This is usually scheduledwithin 2-3 weeks after surgery. You will be scheduled with an Occupational Therapist to discuss Lymphedema prevention. This is usually scheduled about 4 weeks after surgery. It is not uncommon for people to have their surgery cases cancelled the day before surgery because of positive COVID tests. Please consider taking added precautions for the two weeks prior to surgery to ensure your safety as well as to avoid delays in your care. ??? Minimize your contacts to the extent possible. ??? Maintain a distance of at least six feet from others, even if everyone is wearing masks. ??? Wear a mask anytime your are indoors with people outside of your household. ??? Use frequent handwashing and avoid touching your face and eyes. ??? Consider ordering groceries online or using curbside pickup. Pre-operative testing for COVID-19. As part of preparation for your upcoming procedure you are required to have a test for the novel Coronavirus, COVID-19. Your imaging scheduler will schedule you for the test no later than before 12 o'clock, noon, 2 days before your surgery. Testing site hours: Thursday through Thursday 9:00am-6:00pm, Thursday and Thursday 9:00am-1:00pm You will be required to wear a mask and bring a photo ID to the appointment. You are instructed to self-isolate from the time of the test until your surgery. Testing sites: [facility]-[address] [place] [address]- [address] [place] [address] [address] [facility]- [address] [facility]- [address] [place] [address], [facility]- [address] [facility]- [address] [place], [place] Thank you for allowing us to care for you today. Briana OSORIO, [facility] Yohana Parker APRN, HELPER MAINTENANCE CLEANING SUPERVISOR documented in this encounter Progress Notes Ester Martinez RN - 12/13/2019 2:45 PM MINE SUPERVISOR Addended by: ESTER MARTINEZ on: 12/27/2019 11:25 AM Modules accepted: Orders SUPERVISOR Briana Perez MB, [facility] - 12/13/2019 2:45 PM CST 12/27/19 This is a clinic consult regarding a patient with a newly diagnosed breast cancer. SUBJECTIVE: Cristiana Castillo is a 44 y.o. female who is being seen for evaluation of newly diagnosed right breast cancer and atypia. This was identified on screening mammogram. After the biopsy she has noted a mass on the medial mid breast but this was not present prior to the workup. She denies any other recent changes to the breast including skin changes (erythema, peau d'orange, inflammatory changes), nipple areola complex changes, nipple discharge, breast pain or other breast masses. Of note, she has been having intermittent unprovoked palpitations for the past several months. Breast cancer summary - Diagnosis: Right breast ILC and FEA - Side: right - Imaging: - Mammogram: spiculated mass in the right breast at 3:00 posterior depth with numerous punctate calcifications circumferentially around the mass measuring up to 3.4cm in extent. There are additional punctate coarse calcifications at 6:00 which as distinct from the 3:00 findings. - US: right breast 3:00 6cm FN 1.0x0.6x1.0cm mass. - MRI: pending - Needle biopsy pathology: 1: 3:00 mass: ILC, grade 2 2. 6:00 calcs: FEA - Hormone receptors: ER Positive, WA Positive, Her 2 0, negative - Estimated clinical stage: 1 The patient's breast history was obtained during the visit and is summarized below. Onset of menses: 14 Pregnancies: n/a Age when first child born: n/a Breast feed: n/a OCP use: yes Last menstrual cycle: 8 years ago (RAMYA, BSO for severe endometriosis) Menopause: postmenopausal HRT use: Yes, estradiol for 8 years since BSO. Previous abnormal mammograms: no Previous breast biopsies: no History of chest XRT: no Previous genetic testing: no Ashkenazi Alevism: no PAST MEDICAL HISTORY: Past Medical History: Diagnosis Date ??? Asthma ??? HIV (human immunodeficiency virus infection) (HRC) PAST SURGICAL HISTORY: Past Surgical History: Procedure Laterality Date ??? HYSTERECTOMY 2012 with B[facility] (in [place]) for endometriosis/cysts ??? TONSILLECTOMY MEDICATIONS: Current Outpatient Medications Medication Sig Note Dispense [...] No current facility-administered medications for this visit. ALLERGIES: Patient has no known allergies. FAMILY HISTORY: Family History Problem Relation Age of Onset [...] History ??? Cancer, Prostate Negative Family History Denies any additional family history of breast or ovarian cancer. SOCIAL HISTORY: Social History Tobacco Use ??? Smoking status: Never Smoker ??? Smokeless tobacco: Never Used Substance Use Topics ??? 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 Her mother lives upstairs (they own a duplex). REVIEW OF SYSTEMS: Pertinent positives and negatives in the history of present illness. All other constitutional, HEENT, cardiovascular, respiratory, gastrointestinal, genitourinary, derm, psych, neuro, musculoskeletal, endocrine, and heme systems are negative. OBJECTIVE: Vital signs: Pulse 76 Temp 98.1 ??F (36.7 ??C) (Oral) Resp 18 Ht 5' 7 (1.702 m) Wt 130 lb (59 kg) BMI 20.36 kg/m?? Physical exam: General: alert, well appearing and in no apparent distress Neuro: Alert and oriented x3. CN II-XII intact. Normal speech. Psych: Normal affect and mood, cooperative, normal judgement/insight and memory intact Eyes: sclera anicteric, extraocular movements intact, PERRLA ENT: head normal, face symmetric, neck supple. Lymph: No palpable cervical lymphadenopathy. Cardiovascular: RRR. Well perfused Respiratory: equal chest rise, non labored respirations GI: Abd soft/NT/ND. MSK: no clubbing, cyanosis or edema, strong radial pulse Skin: Warm. No skin lesions. Breast/axillary exam: The breast exam was performed in the upright and supine positions. Small breasts (A-B cup) LEFT: skin, nipple, and areola appear normal. There is no skin dimpling or erythema. No nipple retraction or discharge. The parenchyma is dense. Masses: none. RIGHT: skin, nipple, and areola appear normal. There is no skin dimpling or erythema. No nipple retraction or discharge. The parenchyma is dense. Masses: at 3:00 there is bruising from her recent biopsy with a possible palpable 1cm mass but it is ill defined and quite soft possibly just a hematoma. At 6:00 there is bruising withoutany palpable masses from her recent biopsy. AXILLA: no palpable axillary lymphadenopathy bilaterally. DIAGNOSTIC STUDIES: Her imaging studies including were reviewed and interpreted personally by me. Mammogram 12/08/2019 demonstrated: extremely dense breasts, there is a spiculated mass at 3:00 posterior depth surrounded by punctate calcifications extending up to 3.4cm. There are additional coarse calcifications at 6:00. Ultrasound right breast 12/08/2019 demonstrated: at 3:00 6cm FN there is a 1.0x0.6x1.0cm mass. Pathology 12.08.2019 shows: 1. 3:00 mass right breast: ILC, grade 2. ER positive, WA positive, Her2 negative 2. 6:00 calcifications right breast: FEA I have personally reviewed the patient's previous medical records and summarized them in the historyof present illness. ASSESSMENT AND PLAN: Cristiana Castillo is a 44 y.o. year old female with right breast ILC and FEA. I started with reviewing the pathology of a diagnosis of FEA. I reviewed the progression of pathological diagnoses after breast cancer ranging from benign to malignant. I explained that flat epithelialatypia is as step up from a benign breast biopsy but is not a malignant diagnosis. I reviewed that we recommend surgical excision of FEA as it can be associated with carcinoma in a small percentage of patients. Obtaining a larger specimen with a surgical excisional biopsy will rule out any other malignant diagnoses. We discussed that as she will be undergoing surgical treatment for the breast cancer,I can address the FEA at the same time. I then reviewed the pathophysiology of breast cancer starting with the difference between ductal andlobular carcinoma and explained that the patient has lobular carcinoma which is the less common. I reviewed the difference between pre invasive disease (in situ cancer) and invasive carcinoma. I explain ed that the patient has invasive disease. With invasive carcinoma there is the ability of cancer cells to cross membranes into lymphatic spaces of the breast and travel to the lymph nodes. At this point, I recommend an MRI to further evaluate the extent of disease. I discussed that the punctate calcifications around the ILC are worrisome for additional areas of carcinoma. Given the mammogram findings in relation to her breast size, she already has a lot of suspicious areas, that if excised would be a significant portion of the breast. The MRI will provide more information regarding theextent of disease in the affected breast, evaluate the contralateral breast for synchronous lesions and also evaluate the axilla. We discussed that MRI is more sensitive than specific so it is not unusual to require further biopsies after MRI. She agreed to proceed with MRI . I discussed that multiple approaches were used to treat breast cancer including surgery, radiation, chemotherapy, and endocrine therapy. I then explained the significance of the tumor markers and how they are used to characterize a breast cancer. This provides clinicians with the information as to what systemic therapy is required. We briefly discussed the role of endocrine therapy and possible chemotherapy but this will be addressed likely post operatively when she meets with medical oncology. At this point she has early stage disease which can be treated with surgery first. I did recommend she stop the HRT at this point given that her cancer is positive for estrogen. She was in agreement. I then discussed the surgical options are either partial mastectomy with radiation or a mastectomy (with or without reconstruction). I stated that the survival rate and recurrence is equal between eachof these procedures. I explained that with a partial mastectomy, radiation is necessary to treat the entire breast. I reviewed the timeline for radiation, explaining when indicated it lasts for 4-6 weeks and usually starts 4-6 weeks after surgery. We discussed that with a mastectomy, patient's can undergo reconstruction in an immediate or delayed fashion which is done by plastic surgery. Given the two areas to be removed in the right breast (cancer and atypia) and her small breast size, I have encouraged her to consider a mastectomy as this will likely give her a better cosmetic outcome. She was inagreement with this and would like to meet with plastics to discuss reconstruction so a referral hasbeen placed. We also discussed the role of contralateral mastectomy. She is going to have genetic shannon ting given her young age. We discussed the benefit of contralateral mastectomy in genetic carriers to decrease the future risk of breast cancer. In the setting of a negative genetic test, I explained there is no survival advantage to contralateral mastectomy. She demonstrated good understanding and would like to know the results of genetics prior to deciding upon the contralateral breast. We then discussed the role of sentinel lymph node biopsy and axillary lymph node dissection. I reviewed how the sentinel node procedure is done using both radioactive isotope and blue dye. We discussedthat if disease is found in the lymph node, this may impact her other treatments. I reviewed the pros and cons of each procedure. I have discussed the risks, benefits, and alternatives to these procedures. She understands the risks include but are not limited to numbness, hematoma, seroma, infection, lymphedema, and the potential need for re-excision. We discussed the role of genetics for women diagnosed with breast cancer. Given her young age, she does qualify for genetics. I discussed how a positive test may impact her current diagnosis and futurerisks of malignancy. We also briefly discussed how it may impact her family members. She acknowledged understanding and agreed to proceed with a genetics consultation. She would like the results prior to surgery. I would like her to discuss her palpitations with her PCP prior to surgery and recommend an EKG to rule out any underlying cardiac issue. I do not think this is related to her cancer but could increaseher surgical risk if there is an undiagnosed arrhythmia. She also had excellent questions regarding her risk given her HIV diagnosis. I explained that if it is well controlled, her surgical risk remains low with regards to post operative infection. She may be at increased risk of immunosuppression if chemotherapy is needed but I do not know if this would impact her treatment plan. She will discuss this with medical oncology when she meets with them, likely post operatively. I would like her to see her infectious disease provider as she has not had a recent evaluation by him due to the COVID pandemic. At the end of our conversation she demonstrated good understanding. She and her both asked excellent questions to review the recommendations. All the patient's and her 's questions were answered. She acknowledged understanding and agreed to proceed. Plan: 1. Stop HRT 2. PCP eval preop including palpitations 3. Evaluation by infectious disease provider, Dr. Hicks to ensure HIV is well controlled to decreaserisk of surgical infectious complications 4. Breast MRI 5. Genetics 6. Plastic surgery A total of 90 minutes (from 3pm to 4:30pm) were spent with the patient and over 50% was spent counseling the patient on her treatment options for her newly diagnosed right breast cancer and atypia. JO Bauman, [facility] 12/27/2019 4:21 PM SUPERVISOR documented in this encounter Plan of Treatment Scheduled Referrals Name Type Priority Associated Diagnoses Order S chedule Genetic Counseling Referral Routine Malignant neoplasm of Ordered: 12/13/2019 (Oncology) overlapping sites of right breast in female, estrogen receptor positive (HRC) Plastic Surgery Referral Routine Malignant neoplasm of Ord ered: 12/13/2019 Referral - Adult/Peds overlapping sites o f right breast in female, estrogen receptor positive (HRC) Oncology/Hematology Referral Routine Malignant neoplasm of Ordered: 12/27/2019 Consult Adult overlapping sites of right breast in female, estrogen receptor positive (HRC) documented as of this encounter Results (ABNORMAL) MR Breast Bilat W/WO IV Cont Diag (12/15/2019 6:10 PM MINE SUPERVISOR) Anatomical Region Laterality Modality Breast, Other Bilateral Magnetic Resonance Specimen (Source) Anatomical Collection Method Collection Time Re ceived Time Location / / Volume Laterality 12/15/2019 6:10 PM MINE SUPERVISOR Narrative 12/16/2019 9:13 AM MINE SUPERVISOR EXAM: MR BREAST BILAT W/WO IV CONT DIAG LOCATION: [facility] DATE/TIME: 12/15/2019 6:10 PM INDICATION: 44-year-old female with newl y diagnosed invasive lobular carcinoma of the medial right breast 3:00 6 cm from nipple (T3 coil clip) and flat epithelial atypia in the inferior right breast at 6:00 posterior depth (T4 butterfly clip) . Staging breast MRI. COMPARISON: Diagnostic mammogram/ultraso und 12/08/2019. Stereotactic and ultrasound-guided right breast biopsy 12/08/2019. TECHNIQUE: 3D high-resolution magnetic r esonance images, vascular subtraction images with 7 mL of Gadavist and MIP images of the breasts were performed. The study was processed using [employer] computer- aided detection system to optimize radio logist interpretation by generating multiplanar and 3D reconstructions, creating subtraction images from the dynamic contrast data, and computing tumor volumes and dimensions. RIGHT BREAST: There is extreme fibroglan dular tissue. ??There is moderate background parenchymal enhancement. Biopsy-proven malignancy in the medial breast is seen as a 10 x 10 x 11 mm enhancing mass wi th mixed persistent and plateau enhancem ent kinetics at 3:00 6 cm from the nipple at posterior depth. Biopsy marking clip is seen within the mass. Otherwise, there is mild nonmass enhancement with type I persistent kinetics in the inferior br east posterior depth at site of biopsy yielding flat epithelial atypia. Focal 7 x 6 mm nonmass enhancement in the superior breast at 12:00 middle depth with type I persistent enhancement kinetics (CADst ream MIP images and subtracted axial series image 73/120); this area appears similar to the two areas in the left breast. It is unclear if this represents backgro und enhancement. No axillary or internal mammary chain adenopathy. LEFT BREAST: There is extreme fibrogland ular tissue. ??There is mild background parenchymal enhancement. There are a couple areas of vague nonspecific nonmass enhancement with type I persistent kinetics in the lateral breast at 2:00 middle de pth (CADstream MIP images and subtracted axial series image 57/120) and in the inferior breast at 5-6 o'clock posterior depth (image 40/120). No axillary or internal mammary chain adenopathy. IMPRESSION: 1. Biopsy-proven malignancy in the media l right breast at 3:00 posterior depth measures 10 x 10 x 11 mm with mild nonmass enhancement noted in the inferior breast at 6:00 posterior depth at site of biopsy yielding flat epithelial atypia. 2. Focal nonmass enhancement in the supe rior right breast at 12:00 middle depth as well as two similar areas in the lateral left breast and inferior left breast. These areas demonstrate mild nonspecific enhancement with persistent type I enha ncement kinetics. Given known right invasive lobular carcinoma, MRI-guided biopsy of one of these areas is recommended, such as the right 12:00 middle depth. 3. No axillary or internal mammary chain adenopathy. ACR BI-RADS Category 4: Suspicious. Procedure Note Ingrid Salcido MD - 12/16/2019Formatt ing of this note might be different from the original. EXAM: MR BREAST BILAT W/WO IV CONT DIAG LOCATION: [facility] DATE/TIME: 12/15/2019 6:10 PM INDICATION: 44-year-old female with newl y diagnosed invasive lobular carcinoma of the medial right breast 3:00 6 cm from nipple (T3 coil clip) and flat epithelial atypia in the inferior right breast at 6:00 posterior depth (T4 butterfly clip). Staging breas t MRI. COMPARISON: Diagnostic mammogram/ultraso und 12/08/2019. Stereotactic and ultrasound-guided right breast biopsy 12/08/2019. TECHNIQUE: 3D high-resolution magnetic r esonance images, vascular subtraction images with 7 mL of Gadavist and MIP images of the breasts were performed. The study was processed using [employer] computer-aided detection system to optimize radiologist interpretation by generating multiplanar and 3D reconstructions, creating subtraction images from the dynamic contrast data, and computing tumor volumes and dimensions. RIGHT BREAST: There is extreme fibroglan dular tissue. There is moderate background parenchymal enhancement. Biopsy-proven malignancy in the medial breast is seen as a 10 x 10 x 11 mm enhancing mass with mixed persistent and plateau enhancement kinetics at 3:00 6 cm from the nipple at posterior depth. Biopsy marking clip is seen within the mass. Otherwise, there is mild nonmass enhancement with type I persistent kinetics in the inferior breast posterior depth at site of biopsy yielding flat epithelial atypia. Focal 7 x 6 mm nonmass enhancement in the superior breast at 12:00 middle depth with type I persistent enhancement kinetics (CADstream MIP images and subtracted axial series image 73/120 ); this area appears similar to the two areas in the left breast. It is unclear if this represents background enhancement. No axillary or internal mammary chain adenopathy. LEFT BREAST: There is extreme fibrogland ular tissue. There is mild background parenchymal enhancement. There are a couple areas of vague nonspecific nonmass enhancement with type I persistent kinetics in the lateral breast at 2:00 middle depth (CAD stream MIP images and subtracted axial series image 57/120) and in the inferior breast at 5-6 o'clock posterior depth (image 40/120). No axillary or internal mammary chain adenopathy. IMPRESSION: 1. Biopsy-proven malignancy in the media l right breast at 3:00 posterior depth measures 10 x 10 x 11 mm with mild nonmass enhancement noted in the inferior breast at 6:00 posterior depth at site of biopsy yielding flat epithelial atypia. 2. Focal nonmass enhancement in the supe rior right breast at 12:00 middle depth as well as two similar areas in the lateral left breast and inferior left breast. These areas demonstrate mild nonspecific enhancement with persistent type I enhancement kinetics. Given known right invasive lobular carcinoma, MRI-guided biopsy of one of these areas is recommended, such as the right 12:00 middle depth. 3. No axillary or internal mammary chain adenopathy. ACR BI-RADS Category 4: Suspicious. Briana OSORIO, [facility] RAD MRI documented in this encounter Visit Diagnoses Diagnosis Malignant neoplasm of overlapping sites of right breast in female, estrogen receptor positive (HRC) - Primary Malignant neoplasm of overlapping sites of right breast in female, estrogen receptor positive (HRC) documented in this encounter Care Teams Marketing Admin Relationship Specialty Start Date End Date Mary Kay Lr, MEDICAL INSURANCE VERIFIER, HELPER MAINTENANCE CLEANING PCP - General Nurse Practitioner 12/01/17 04/23/21 [address] [place] [address] documented as of this encounter
--- OUTSIDE RECORDS SUMMARY | 2021-11-06 20:41 | XMS_ITS | Encounter Summary ---
:1975 Author Organization [facility] Address [address], [place] [address] Care Team Providers Name Role Phone Mary Kay Lr APRN, RECRUITMENT INTERN Primary Care Provider [phone] Reason for Visit Procedure/Equipment (Routine) - Incomplete Specialty Diagnoses / Procedures Referred By Contact Refer red To Contact Diagnoses Screening for breast cancer Saray Barrera MD Procedures MM Mammogram Screening Bilat W 3D Adelfo W CAD MM Mammogram Screening Bilat W CAD [address] [place], [place] [address] Referral ID Status Reason Start Date Expiration Date Visits V isits Requested Authorized [id number] Incomplete 04/08/2019 07/07/2020 1 1 Encounter Details Date Type Department Care Team Description 11/30/2019 [facility] Screenin g for Procedure Casey DANGELO breast cancer Mammography [address] [place] [address] [address] [place], [place] [phone] Social History Tobacco Use Types Packs/Day Years Used Date Smoking Tobacco: Never Smokeless Tobacco: Never Alcohol Use Standard Drinks/Week Comments Yes 7 (1 standard drink = 0.6 oz pure alcoho l) Alcohol Habits Answer Date Recorded How often do you have a drink containing 4 or more times a w [place] 02/01/2020 alcohol? How many drinks containing alcohol [...] Associated Diagnosis Comme nts MM MAMMOGRAM Routine 11/30/2019 8:12 AM Screening for breast R esults for this SCREENING BILAT W CDT cancer procedure are in 3D ADELFO W CAD the results section. documented in this encounter Results (ABNORMAL) MM Mammogram Screening Bilat W 3D Adelfo W CAD (11/30/2019 8:12 AM CDT) Anatomical Region Laterality Modality Breast Bilateral Mammography Specimen (Source) Anatomical Location Collection Method / Collectio n Time Received Time / Laterality Volume Impressions 12/01/2019 9:01 AM CDT : ACR BI-RADS Category 0: Need Additional Imaging Evaluation RECOMMENDATION: Magnification Views and a member of the breast center staff will be contacting the patient to arrange for this additional study. For the convenience of the patient, a st ereotactic guided biopsy will be scheduled for the same visit. If the bio psy is felt to be unnecessary after evaluating the additional imaging, this biopsy will be canceled. The results and recommendations of this examination will be communicated to the patient and the imaging center wi ll attempt to schedule any recommended follow up with the patient. Narrative 12/01/2019 9:01 AM CDT MM MAMMOGRAM SCREENING BILAT W 3D ADELFO W CAD performed on 11/30/19 Compared to: 03/01/2018 MM Mammogram Scr eening Bilat W CAD and 06/26/2016 MM Mammogram Diag Bilat W Adelfo ?? FINDINGS: Bilateral screening mammogram was performed with the assistance of Computer-Aided Detection and breast t omosynthesis. The breasts are extremely dense, which lowers the sensit ivity of mammography. There are indeterminate calcifications i n the right breast at the 6 o'clock position at posterior depth and 5 o'clock position at posterior depth. The remainder of the breast tissue is un remarkable. Saray Barrera MD RAD LIONEL documented in this encounter Visit Diagnoses Diagnosis Screening for breast cancer Breast screening, unspecified documented in this encounter Care Teams Department Store General Manager Relationship Specialty Start Date End Date Mary Kay Lr, GOLD LETTERER, RECRUITMENT INTERN PCP - General Nurse Practitioner 12/01/17 04/23/21 [address] [place] [address] documented as of this encounter
--- OUTSIDE RECORDS SUMMARY | 2021-11-06 20:41 | XMS_ITS | Encounter Summary ---
:1975 Author Organization [facility] Address [address] [place] [address] Care Team Providers Name Role Phone Mary Kay Lr APRN, ROLL TENDER Primary Care Provider [phone] Reason for Referral Procedure/Equipment (Routine) - Incomplete Specialty Diagnoses / Procedures Referred By Contact Refer red To Contact Diagnoses Abnormal mammogram Saray Barrera MD Procedures MM Post-Stereo Mammogram Rt [address] [place], [place] [address] Referral ID Status Reason Start Date Expiration Date Visits V isits Requested Authorized [id number] Incomplete 12/01/2019 03/01/2021 1 1 Procedure/Equipment (Routine) - Incomplete Specialty Diagnoses / Procedures Referred By Contact Refer red To Contact Diagnoses Abnormal mammogram Saray Barrera MD Procedures MM Bx Stereotactic Breast Rt [address] [place], [place] [address] Referral ID Status Reason Start Date Expiration Date Visits V isits Requested Authorized [id number] Incomplete 12/01/2019 03/01/2021 1 1 Encounter Details Date Type Department Care Team Description 12/01/2019 Notes/Orders [facility] Saray Barrera [facility] (Primary Dx) [address] [facility] [address] [place] [address] [place], [place] [phone] (Wo rk) Social History Tobacco Use Types Packs/Day Years Used Date Smoking Tobacco: Never Smokeless Tobacco: Never Alcohol Use Standard Drinks/Week Comments Yes 7 (1 standard drink = 0.6 oz pure alcoho l) Alcohol Habits Answer Date Recorded How often do you have a drink containing 4 or more times a w [place] 02/01/2020 alcohol? How many drinks containing alcohol do you have Not asked on a typical day when you are drinking? How often do you have six or more drinks on one Not asked occasion? Comment: Not asked Sex Assigned at Date Recorded Not on file documented as of this encounter Plan of Treatment Not on filedocumented as of this encounter Results MM Post-Stereo Mammogram Rt (12/08/2019 3:12 PM CDT) Anatomical Region Laterality Modality Breast Right Mammography Specimen (Source) Anatomical Location Collection Method / Collectio n Time Received Time / Laterality Volume Addenda Addendum by Mary Gu MD on 4:17 PM CDT Pathology reveals invasive lobular carci noma. This is consistent with the imaging findings. A verbal report was gi durga to the patient. Surgical consult has been arranged. Impressions 12/08/2019 3:45 PM CDT : 1. Ultrasound guided biopsy of an indete rminate mass in the right breast. ?? Pathology pending. 2. Post procedure mammogram for clip jeanna cement Narrative 12/08/2019 3:45 PM CDT RIGHT BREAST ULTRASOUND GUIDED BIOPSY, CLIP PLACEMENT AND RIGHT MAMMOGRAM: INDICATIONS: ??Right breast mass - site A, T3 clip. PROCEDURE: ??Informed consent was obtain ed from the patient. ??Ultrasound was used to localize the mass in the 3 o 'clock position of the right breast, 6 cm from the nipple. ??The skin was prepped and draped in a sterile fashion. ??Buffered lidocaine wa s used for local anesthesia. ??Under direct sonographic guidance, a 12 gauge coaxial needle was used to obtain 3 core biopsies. ??A clip was then place d. Digital mammogram post biopsy demonstrates the clip in an appropriate position. The patient tolerated this well, there are no immediate compli cations. Saray Barrera MD RAD [facility] MM Bx Stereotactic Breast Rt (12/08/2019 3:11 [...] this encounter Visit Diagnoses Diagnosis Abnormal mammogram - Primary Abnormal mammogram, unspecified Abnormal mammogram Abnormal mammogram, unspecified Abnormal mammogram Abnormal mammogram, unspecified documented in this encounter Care Teams Children'S Tutor Relationship Specialty Start Date End Date Mary Kay Lr APRN, ROLL TENDER PCP - General Nurse Practitioner 12/01/17 04/23/21 [address] [place] [address] documented as of this encounter
--- OUTSIDE RECORDS SUMMARY | 2021-11-06 20:41 | XMS_ITS | Encounter Summary ---
:1975 Author Organization [facility] Address [address], [place] [address] Care Team Providers Name Role Phone Mary Kay Lr APRN, CNP Primary Care Provider [phone] Encounter Details Date Type Department Care Team Description 10/31/2019 Notes/Orders [facility] for Angus Danielgladysjordan AtkinsYoel vaginitis (Primary Dx); Women Obstetrics and EILEEN MOHAN BV (bladimir terial vaginosis) Gynecology [address] [place], [place] [id number] Social History Tobacco Use Types Packs/Day Years Used Date Smoking Tobacco: Never Smokeless Tobacco: Never Alcohol Use Standard Drinks/Week Comments Yes 7 (1 standard drink = 0.6 oz pure alcoho l) Alcohol Habits Answer Date Recorded How often do you have a drink containing 4 or more times a w [place] 02/01/2020 alcohol? How many drinks containing [...] as of this encounter Visit Diagnoses Diagnosis Yeast vaginitis - Primary Candidiasis of vulva and vagina BV (bacterial vaginosis) Vaginitis and vulvovaginitis, unspecifie d documented in this encounter Care Teams Machine Operator Slitter Technician Relationship Specialty Start Date End Date Mary Kay Lr, CHRISTA MOHAN PCP - General Nurse Practitioner 12/01/17 04/23/21 [address] [place] [address] documented as of this encounter
--- OUTSIDE RECORDS SUMMARY | 2021-11-06 20:41 | XMS_ITS | Encounter Summary ---
:1975 Author Organization [employer] Address [address], [place] [address] Care Team Providers Name Role Phone Mary Kay Lr APRN, PAN HELPER Primary Care Provider [phone] Reason for Visit Reason Comments Consult, New Patient Breast Recon Consult/Transfer Care (Routine) - Closed Specialty Diagnoses / Procedures Referred By Contact Refer red To Contact Diagnoses Malignant neoplasm of overlapping sites of right breast in female, estrogen receptor positive (HRC) Briana Mdcermott MB, [address] [address] Referral ID Status Reason Start Date Expiration Date Visits Requ ested Visits Authorized [id number] Closed 12/13/2019 03/13/2021 1 1 Encounter Details Date Type Department Care Team Description 12/22/2019 Office Visit Cosmetic and Plastic Stephanie Pabon Ma lignant neoplasm of [facility] [place], overlapping sites of [address] [facility], [address] [place] [address] right breast in [address] [place], [place] female, [place] [id number] receptor positive [phone] (HRC) (Primary Dx) (Work) Social History Tobacco Use Types Packs/Day Years Used Date Smoking Tobacco: Never Smokeless Tobacco: Never Alcohol Use Standard Drinks/Week Comments Yes 7 (1 standard drink = 0.6 oz pure alcoho l) Alcohol Habits Answer Date Recorded How often do you have a drink containing 4 or more times a w [place] 02/01/2020 alcohol? How many drinks containing alcohol do you have Not asked on a typical day when you are drinking? How often do you have six or more drinks on one Not asked occasion? Comment: Not asked Sex Assigned at Date Recorded Not on file documented as of this encounter Last Filed Vital Signs Vital Sign Reading Time Taken Comments Blood Pressure 106/72 12/22/2019 10:20 AM COLOR DEVELOPER Pulse 64 12/22/2019 10:20 AM COLOR DEVELOPER Temperature - - Respiratory Rate - - Oxygen Saturation - - Inhaled Oxygen Concentration - - Weight 58 kg (127 lb 12.8 oz) 12/22/2019 10:20 AM COLOR DEVELOPER Height 170.2 cm (5' 7) 12/22/2019 10:20 AM COLOR DEVELOPER Body Mass Index 20.02 12/22/2019 10:20 AM COLOR DEVELOPER documented in this encounter Patient Instructions Patient InstructionsEdouard Beard MA - 12/22/2019 10:15 AM CST With any procedure there is a small but inherent risk of acquiring infection including, but not limited to, the novel coronavirus (COVID-19). Please be aware that there is a potential for your procedure or surgery to be postponed, or possibly canceled, if you should test positive for COVID-19. There is also a potential for postponement of your procedure if there is a significant reduction in resources required to safely perform your procedure. Pre-operative testing for COVID-19. As part of preparation for your upcoming surgery/procedure/infusion you are required to have a test for the novel Coronavirus, COVID-19. Patient is a/an Procedures/Surgeries/Inductions/Infusions scheduled at [facility] or [facility] Please call your specialty clinic to get scheduled for COVID testing three days prior to the date ofsurgery/procedure/infusion in order to get your results before your procedure. It is important to self-quarantine between the test and surgery/procedure/infusion to avoid any additional exposure. Testing site hours: Thursday through Thursday 9:00am-6:00pm, Thursday and Thursday 9:00am-1:00pm Important information to know before your surgery You will be scheduled for a Breast Reconstruction, pending biopsy results. You will receive a phone call from your surgeon's office regarding the date, and location of your surgery. Please allow two weeks for them to reach you. For certain types of surgeries, such as workers compensation, this may take longer. Once you know your surgery date, please contact your primary care physician to schedule a preoperative history and physical. This must be done within 30 days of your surgery. This will ensure that you are medically ready to have your surgery and anesthesia. If your Primary Physician is located outside of our [facility] system, please have your Primary Physician fax your Pre-operative History and Physical form to our [facility] as soon as possible. [facility] [place] Fax#: [phone] [facility] [place] Fax#: [phone] The Same Day Surgery Nurses will call you 1-3 days prior to surgery to inform you what time you should arrive for your surgery. If they do not reach you, please call if your surgery is at [facility] or [phone] for the [facility] at [address] [place] [address] on the 4th floor. We prefer that you do not take any ibuprofen, aspirin, naprosyn type products, or vitamin E seven days before your surgery. If you are taking aspirin, Coumadin, Plavix or other blood thinners for medical reasons, please consult with your prescribing physician to ensure that it is safe for you to stop. Do not take any herbal medications two weeks before your surgery. Young children and adults should not smoke, eat, or drink after midnight the night before surgery. This includes chewing gum. If you eat or drink anything after midnight, your surgery will be canceled.For infants under the age of 6 months, consult with the Surgery Nurse. No use of hair products such as hair spray, gel, mousse, etc, on the day of surgery. Please remove all jewelry including piercings. If you are having an outpatient procedure, you will not be able to drive yourself home. Please arrange for transportation and arrange for help at home the day of the surgery. If you are staying in the hospital, please arrange for transportation for the day you will be discharged. Contact Information for Post Operative Care Plastic and Hand Surgery Clinic, between the hours of 8am-5pm. After hours call [phone] and ask for the on-call Plastic and Hand Surgery resident or call the [facility] at [phone]. Washing your skin before surgery It???s important to prepare your skin for surgery to reduce the risk of a surgical wound infection. Please take a shower the night before and the morning of your surgery. Please follow these steps during your showers: The night before your surgery: ?? Take a shower, washing your body as usual. Apply plenty of Hibiclens*, a special filter screen cleaner, to a clean, wet washcloth. Wash from your neck to your feet. Be sure to rinse off all the soap. ?? Avoid getting Hibiclens* in your eyes, nose, ears, or mouth. ?? If Hibiclens* is not available, use an antibacterial soap such as Dial instead. ?? Apply plenty of Hibiclens* to a wet washcloth. Gently lather the area of your body where you willhave the surgery for 5 minutes. ?? Do not scrub your skin with a brush. ?? Do not shave any hair from your body. ?? Wash your hair with your usual shampoo. You can do this either in the evening or in the morning. ?? Dry your body with a newly washed towel. ?? Wear newly washed clothing and sleep in newly washed bedding. The morning of your surgery: ?? Take another shower following the steps above. ?? Dry your body with a newly washed towel. ?? Do not apply deodorant, lotions, or creams. ?? Wear newly washed clothing. *Hibiclens is Chlorhexidine, an antiseptic that you rub on your skin. It destroys germs on the skin.It is used before surgery to reduce the risk of infection. Before using it, tell your doctor if you have any other medical conditions, especially skin problems or allergies, or if you are or nu rsing. Department of Plastic and Hand Surgery If you have any questions, please call [phone] PAIN MEDICATION POLICY The Department of Plastic and Hand Surgery recognizes that appropriate pain management is an important part of your surgical and recovery process. It is, therefore, important that you are aware of our policies regarding dispensing prescriptive (narcotic) pain medications. This department does not prescribe narcotic pain medication in anticipation of surgery or for most non-surgical conditions. Your primary care physician should manage your pain medication needs until surgery. Following surgery, you will be discharged with an appropriate prescription for pain medicationdepending on the severity of your surgery or injury. This prescription should last until your first postoperative appointment. Pain medication must be taken as prescribed. Patients should not take morethan the prescribed amount of medication without consulting the nurse practitioner, physician medical claims assistant or physician of [facility] Plastic and Hand Surgery. The amount of narcotic pain medication prescribed is related to your surgical procedure or injury and is only one part of your pain management program. Other important parts of pain control include nonsteroidal anti-inflammatory agents (NSAIDS: ibuprofen, Naprosyn, Celebrex, aspirin), ice, elevation, and rest. Your ability to use NSAIDS may be altered depending on other health conditions and should be discussed with your surgeon. Relaxation techniques such as deep breathing and visualization have been shown to significantly improve pain. A handout is available in our office explaining how to do relaxation techniques. Our Plastic Surgeons will manage your postoperative pain for a period of one to six weeks following your surgery depending on the type of the procedure done. If you have a history of chronic pain, consultation with the pain clinic, physical therapist, or pain psychologist may be considered. If you have been receiving narcotic pain medication from another physician prior to your surgery or injury, youwill need to return to that physician for further medical management. REFILL Policy for Prescriptions Pain management will be addressed during your physician visit. Should you need a refill between office visits, you will need to allow twenty-four hours for this to occur. Please call during clinic hours only and before noon on Fridays. We do not refill prescriptions over the weekend. Under no circumstances will your prescription be refilled on a walk in basis in the clinic or during weekend hours. Additionally, medications are the patient???s responsibility - we will not replace lost or stolen prescriptions or medications. RISKS of Narcotic Medications We are concerned about your overall health and the potentially negative effects of narcotic medications on it. In addition to lack of effectiveness for some types of pain, the side effects of narcoticsinclude nausea, constipation, upset stomach, sexual dysfunction, depression, fatigue, increased sensitivity to pain, addition, and drug tolerance. Extended Recovery Patient Information What is extended recovery? Extended recovery is ordered by your doctor when the doctor thinks you need more time to safely recover. This recovery may be from an outpatient surgery or a radiology procedure. Your doctor expects that you will need more than 4-6 hours. When would I need extended recovery? The most common reasons for an extended recovery include: ??? Not being able to urinate. ??? Not being able to keep down solid foods or liquids. You need an IV (giving you fluids into a vein). ??? Uncontrolled pain. ??? Unexpected surgical bleeding. ??? Abnormal vital signs such as blood pressure or heart rate. ??? Not being able to safely move around. ??? Cardiac or respiratory monitoring. (Keeping track of your heart and breathing). Your doctor will monitor your recovery and determine a plan of care. Department of Plastic and Hand Surgery R DEVELOPER documented in this encounter Progress Notes Setphanie Pabon MD - 12/22/2019 10:15 AM COLOR DEVELOPER Addended by: STEPHANIE PABON on: 12/29/2019 08:00 AM Modules accepted: Orders, SmartSet R DEVELOPER Stephanie Pabon MD - 12/22/2019 10:15 AM CST 44 y/o F comes in referred by dR mcdermott for possible breast reconstruction. Currently 32C bra wouldlike to be similar She doesn't know what surgery she will be having Past Medical History: Diagnosis Date ??? Asthma ??? HIV (human immunodeficiency virus infection) (HRC) Past Surgical History: Procedure Laterality Date ??? HYSTERECTOMY 2011 with [facility] (in [place]) for endometriosis/cysts ??? TONSILLECTOMY Meds: reviewed Neg 10tob Ros o/w neg 10pt ros Exam Filed Vitals: 12/22/19 1020 BP: 106/72 Pulse: 64 Weight: 127 lb 12.8 oz (58 kg) Height: 5' 7 (1.702 m) A/a/ox3 nad Grade 2 ptosis, L breast larger than the R side Abd:minimal laxity Imp Breast ca Plan Lengthy discussion with pt regarding options for recosntruction, unilateral vs bilateral vs lumpectomy. Nipple sparing vs not.unclear what she will chose Silicone implants 200-[address] Will touch base with dr mcdermott after biopsy tomorrow Total visit time 45 min spent greater than 50% spent counseling/discussion/ coordination of care distinct & separate from the rest of the clinic visit R DEVELOPER documented in this encounter Plan of Treatment Not on filedocumented as of this encounter Results 2019 Novel Coronavirus (COVID-19) (02/13/2020 8:26 AM COLOR DEVELOPER) [facility] gist Method Time Signature COVID-19 Not Not 02/13/2020 [facility] Interpretation Detected Detected 8:19 PM CENTRAL [facility] COLOR DEVELOPER Specimen Anatomical Collection Method Collection Time Receive d Time (Source) Location / / Volume Laterality Swab (Source Non-blood 02/13/2020 8:26 AM Required) Collection / COLOR DEVELOPER 10:41 AM COLOR DEVELOPER Unknown Narrative [facility] - 02/13/2020 8:19 PM COLOR DEVELOPER Test performed by Health Counselor Mediated Amplification. TMA has been shown to be equivalent to commercial real-time PCR t ests. This test has been authorized by the FDA under an Emergency Use Authorization (EUA) for use by authorized laboratories. Stephanie Pabon MD LAB_1 Performing Organization Address City/State/ZIP Code Phon e Number [facility] [address] [address] documented in this encounter Visit Diagnoses Diagnosis Malignant neoplasm of overlapping sites of right breast in female, estrogen receptor positive (HRC) - Primary documented in this encounter Care Teams Adjustment Supervisor Relationship Specialty Start Date End Date Mary Kay Lr, WOODS RIDER, PAN HELPER PCP - General Nurse Practitioner 12/01/17 04/23/21 [address] [place] [address] documented as of this encounter
--- OUTSIDE RECORDS SUMMARY | 2021-11-06 20:41 | XMS_ITS | Encounter Summary ---
:1975 Author Organization [facility] Address [address] [place] [address] Care Team Providers Name Role Phone Mary Kay Lr APRN, MICROSOFT SYSTEMS ENGINEER Primary Care Provider [phone] Reason for Visit Procedure/Equipment (Routine) - Incomplete Specialty Diagnoses / Procedures Referred By Contact Refer red To Contact Diagnoses Abnormal mammogram Saray Barrera MD Procedures MM US Bx Breast Rt [address] [place], [place] [address] Referral ID Status Reason Start Date Expiration Date Visits V isits Requested Authorized [id number] Incomplete 12/08/2019 03/08/2021 1 1 Encounter Details Date Type Department Care Team Description 12/08/2019 [facility]illary [facility] [place], Saray Lump or mas s in breast (Primary Dx); [facility] MD Valnetin Abnormal mammogram; [address] SARAH Mammographic microcalcificat ion [facility] [address] [place], [place] [phone] Social History Tobacco Use Types Packs/Day Years Used Date Smoking Tobacco: Never Smokeless Tobacco: Never Alcohol Use Standard Drinks/Week Comments Yes 7 (1 standard drink = 0.6 oz pure alcoho l) Alcohol Habits Answer Date Recorded How often do you have a drink containing 4 or more times a w ekuk 02/01/2020 alcohol? How many drinks containing alcohol do you have Not asked on a typical day when you are drinking? How often do you have six or more drinks on one Not asked occasion? Comment: Not asked Sex Assigned at Date Recorded Not on file documented as of this encounter Progress Notes Briana Perez MB, [facility] - 12/08/2019 1:20 PM CDT Pathology addendum were given to the patient over the phone. I requested a review as the outside review was interpreted as a mixed ductal lobular. Two pathologist here reviewed the slides and have agreed it is a lobular carcinoma. I reassured the patient that management is the same regardless of the histology interpretation at this point. All questions were answered. JO Bauman, [facility] 01/30/2020, 12:30 PM L RESERVATIONIST documented in this encounter Plan of Treatment Not on filedocumented as of this encounter Procedures Procedure Name Priority Date/Time Associated Diagnosis Comme nts MM US BX BREAST Routine 12/08/2019 3:11 Abnormal mammogram Res ults for this RT PM CDT procedure are i n the results section. SURGICAL Routine 12/08/2019 3:09 Abnormal mammogr am Results for this PATHOLOGY, BREAST PM CDT Lump or mass i n breast procedure are in Mammographic the results microcalcification section. documented in this encounter Results MM Post-Stereo Mammogram Rt [...] there are no immediate compli cations. Saray [facility] MM US Bx Breast Rt (12/08/2019 3:11 PM CDT) Anatomical [...] there are no immediate compli cations. Saray [facility] Surgical Path, Breast (12/08/2019 3:09 PM CDT) Component Value Ref Test Analysis Performed Pathologis t Range Method Time At Signature Case Report Surgical Pathology ?Case: [id number] ? 01/27/2020 [facility] Authorizing Provider: ??Georgie Crockett MD ? Collected: ? 12/08/2019 1509 ? 4:26 PM HOSPITA L Ordering Location: ? [facility] ?Received: ?12/08/2019 1543 ? HOTEL RESERVATIONIST ? Center ? Pathologist: ? Truong, Radha, ? Specimens: ?? A) - Breast, r ight, 3:00 6cmfn ? B) - [address] st, right, Calcifications, 6:00 posterior ? C) - [address], right, Non calcifications, 6:00 posterior ? FINAL A. Breast, right, 3:00 6cmfn, needle core biopsy: 01/27/2020 [facility] Amendment DIAGNOSIS Invasive lobular carcinoma, Beverly grade 2 4:26 PM HOSPITAL electronically ER, ID, and HER2 Tino studies will be performed and the results reported in an addendum HOTEL RESERVATIONIST signed by Ave Yepez MD B. Breast, right, Calcifications, 6:00 posterior, needle cor e biopsy: on 12/15/2019 at Atypical ductal hyperplasia and atypical lobular hyperplasia 9:44 AM Invasive carcinoma is not identified Electronically signed by C. Breast, right, Non calcifications, 6:00 posterior, needle core biopsy: Radha Truong, Atypical ductal hyperplasia on Invasive carcinoma is not identified 12/09/2019 at 2:[address] Liu has reviewed the case and concurs with the diagno sis. Yohana Islas in the Breast Center was notified of the findings 12/09/2019 and the amended result 12/15/2019. Amendment 01/27/2020 [facility] History The report is amended due to a change in interpretation in parts B. And C. (see amendment comment) 4:26 PM HOSPITAL HOTEL RESERVATIONIST AMENDMENT COMMENT: The aponte es were made after the case was reviewed for Breast conference. ADDENDUM Hormone Receptor Analysis by Immunohistochemistry 01/27/2020 [facility] Addendum 4:26 PM HOSPITAL electronic ally Estrogen Receptor (ER) Status: Positive HOTEL RESERVATIONIST signed by Percentage of cells with Nuclear Positivity: 80% Kathleen Crisostomo Average Intensity of Staining: Dian Hanson MD on 12/13/2019 at Progesterone Receptor (ID): Positive 9:34 AM Percentage of cells with Nuclear Positivity: 80% Average Intensity of Staining: Strong HER2 by Immunohistochemistry INTERPRETATION: Negative (score: 0) Specimen Block Number: A1 Adequacy of Sample for Evaluation: Adequate Hormone Receptor regulatory data Grading Criteria: Semi-quantitative, manual method Positive 1% or greater; Negative <1% External controls: Adequate Standard assay conditions: Met Standard Assay Conditions/Staining method used: Fixative: 10% NBF; Cold isch emia time: <60 min; Duration of fixation: 6-72 hours; Ab Clones: ER clone: [id number]; ID Clone: [id number]; Detection system: Dako Flex Envision: Time in Ag retrieval: 30 minutes; Ag retrieval type: Dako low pH TR. This assay has not been validated on decalcified tissues. Results should be interpreted with caution given the likelihood of false negativity on decalcified specimens. HER2 regulatory data Assay Method: DAKO HercepTes t ; Controls: DAKO cell lines with high, intermediate and low level protein expression. In house tissue control; Specimen Fixation and Processing: Cold ischemia time<60 mi nutes; Formalin fixed (6-72 hours); paraffin embedded; Time in antigen retrieval 60 min; Detection system: DAKO FLEX DAB. Interpreted using the HercepTest scoring guidelines. Semi-quantitative, manual method. The performance characterist ics for this test have been evaluated by the pathologists from [facility]. The tissue has been fixed 6-72 hours according to ASCO/CAP 2018 re commendations. This test has been validated against the FDA approved DAKO Herceptest and FISH detection methods with greater than 95% concordance. This assay has not been validated on decalcified tissue s. Results should be interpr eted with caution given the likelihood of false negativity on decalcified specimens. According to ASCO/CAP 2018 g uidelines, equivocal results (2+) will automatically be tested for FISH confirmation of HER2/tino protein overexpression. ADDENDUM 2 The slides are re-reviewed u mariam the outside diagnosis of invasive mammary carcinoma with mixed lobular and ductal features. The e-cadherin expression is not retained (rare aberrant, very weak expressi 01/27/2020 [facility] Addendum on is present), and there is subtle/possible gland formation. Therefore we interpret the overall morphology and lack of e-cadherin expression as invasive lobular carcinoma. In addition, the micropapilla 4:26 PM HOSPITAL electronically ry architecture, focal cribr iform pattern, and aggregate jahaira of cells in the biopsy from Part B is compatible with atypical ductal hyperplasia. The micropapillary tufting is also present in Part C and C ST signed by therefore we also interpret this as atypical ductal hyperpl devora. Kathleen Crisostomo Dr. has also reviewed this and concurs with the se findings. MD Valentin on 01/27/2020 at 4:26 PM Clinical Right breast 01/27/2020 [facility] Information 4:26 PM HOSPITAL HOTEL RESERVATIONIST Microscopic Microscopic 01/27/2020 [facility] Description examination is 4:26 PM HOSPITAL performed. HOTEL RESERVATIONIST Special Immunohistochemical stain fo r E-cadherin performed on A1 demonstrates the tumor is negative, supporting the diagnosis of lobular carcinoma. The appropriate controls have been reviewed. 01/27/2020 [facility] Stains 4:26 PM HOSPITAL The stain controls have been reviewed and stain appropriatel y. HOTEL RESERVATIONIST Gross A. Breast, right, 3:00 6cmfn. 01/27/2020 [facility] Description The specimen is received in formalin and labeled with the patient's name and Breast, right, 3:00 6cmfn. The specimen consists of three red-pink, spear-yellow cores of soft tissue that range from 1.6-2.1 4:26 PM HOSPITAL cm in length and are 0.3 cm in greatest diameter. The specimen is inked blue. The specimen was collected and placed in formalin at 2:15 PM, 12/08/2019. The specimen is entirely submitted in one cassette. HOTEL RESERVATIONIST B. Breast, right, Calcifications, 6:00 posterior. The specimen is received in formalin and labeled with the patient's name and Breast, right, Calcifications, 6:00 posterior. The specimen consists of a 1.7 x 1.6 x 0.6 cm aggregate of multiple entangle d and fragmented spear-yellow cores of soft tissue. The specimen is inked blue. The specimen was collected and placed in formalin at 2:15 PM, 12/08/2019. The specimen is entirely submitted in two cassettes. C. Breast, right, Non calcifications, 6:00 posterior. The specimen is received in formalin and labeled with the patient's name and Breast, right, Non calcifications, 6:00 posterior. The specimen consists of a 2 x 1.8 x 0.6 cm aggregate of multiple entang led and fragmented spear-yello w cores of soft tissue. The specimen is inked blue. The specimen was collected and placed in formalin at 2:15 PM, 12/08/2019. The specimen is entirely submitted in two cassettes. DT Embedded 01/27/2020 [facility] Images 4:26 PM [facility] HOTEL RESERVATIONIST Specimen Anatomical Collection Method Collection Time Receive d Time (Source) Location / / Volume Laterality Tissue BREAST STRUCTURE / 12/08/2019 3:09 PM 3:43 Unknown CDT PM CDT Tissue specimen BREAST STRUCTURE / 12/08/2019 3:09 PM 12/08/2019 3:43 (specimen) Unknown CDT PM CDT Tissue specimen BREAST STRUCTURE / 12/08/2019 3:09 PM 12/08/2019 3:43 (specimen) Unknown CDT PM CDT Georgie Crockett MD LAB PATHOLOGY Performing Organization Address City/State/ZIP Code Phon e Number [address] [address] documented in this encounter Visit Diagnoses Diagnosis Abnormal mammogram Abnormal mammogram, unspecified Lump or mass in breast - Primary Abnormal mammogram Abnormal mammogram, unspecified Mammographic microcalcification documented in this encounter Care Teams French Edge Operator Relationship Specialty Start Date End Date Mary Kay Lr, MACHINE LEARNING INTERN, MICROSOFT SYSTEMS ENGINEER PCP - General Nurse Practitioner 12/01/17 04/23/21 [address] [place] [address] documented as of this encounter
--- OUTSIDE RECORDS SUMMARY | 2021-11-06 20:41 | XMS_ITS | Encounter Summary ---
:1975 Author Organization [facility] Address [address] [address] Care Team Providers Name Role Phone Mary Kay Lr APRN, CNP Primary Care Provider [phone] Encounter Details Date Type Department Care Team Description 12/13/2019 Pt Care Coordination [facility] Malignant neoplasm Center at [facility] Pia Powell MS, [facility] breast, [address] [facility]. [address] [facility] [place] [address] [place], [place] estrogen receptor [phone] status, unspecified sit e (Work) of breast (HRC) [phone] (Primary Dx) (Fax) Social History Tobacco Use Types Packs/Day Years Used Date Smoking Tobacco: Never Smokeless Tobacco: Never Alcohol Use Standard Drinks/Week Comments Yes 7 (1 standard drink = 0.6 oz pure alcoho l) Alcohol Habits Answer Date Recorded How often do you have a drink containing 4 or more times a w craig 02/01/2020 alcohol? How many drinks containing alcohol [...] encounter Visit Diagnoses Diagnosis Malignant neoplasm of right female breas t, unspecified estrogen receptor status, unspecified site of breast (HRC) - Prima ry documented in this encounter Care Teams Plasterer Tender Relationship Specialty Start Date End Date Mary Kay Lr, MARQUES, SUSTAINABILITY OFFICER PCP - General Nurse Practitioner 12/01/17 04/23/21 [address] [address] documented as of this encounter
--- OUTSIDE RECORDS SUMMARY | 2021-11-06 20:41 | XMS_ITS | Encounter Summary ---
:1975 Author Organization [facility] Address [address] [place] [address] Care Team Providers Name Role Phone Mary Kay Lr APRN, PROJECT MANAGEMENT DIRECTOR Primary Care Provider [phone] Reason for Referral Procedure/Equipment (Routine) - Incomplete Specialty Diagnoses / Procedures Referred By Contact Refer red To Contact Diagnoses Malignant neoplasm of overlapping sites of right breast in female, estrogen receptor positive (HRC) Abnormal magnetic resonance imaging of left breast Briana Perez, Procedures MM Post-Bx Mammogram Lt [address] [address] Referral ID Status Reason Start Date Expiration Date Visits V isits Requested Authorized Incomplete 12/16/2019 03/16/2021 1 1 rocedure/Equipment (Routine) - Closed Specialty Diagnoses / Procedures Referred By Contact Refer red To Contact Diagnoses Malignant neoplasm of overlapping sites of right breast in female, estrogen receptor positive (HRC) Abnormal magnetic resonance imaging of left breast Briana Perez, Procedures MR Bx Breast Lt [address] [address] Referral ID Status Reason Start Date Expiration Date Visits Requ ested Visits Authorized Closed 12/16/2019 03/16/2021 1 1 N FOLDER Reason for Visit Reason Comments Scheduling Encounter Details Date Type Department Care Team Description 12/16/2019 Telephone [facility] Yohana Ballesteros, Scheduling Center BEHAVIORAL SCIENTIST, PROJECT MANAGEMENT DIRECTOR [address] [facility] [address] [place] [address] [place] [address] [phone] (Wo rk) Social History Tobacco Use Types Packs/Day Years Used Date Smoking Tobacco: Never Smokeless Tobacco: Never Alcohol Use Standard Drinks/Week Comments Yes 7 (1 standard drink = 0.6 oz pure alcoho l) Alcohol Habits Answer Date Recorded How often do you have a drink containing 4 or more times a w [place] 02/01/2020 alcohol? How many drinks containing alcohol do you have Not asked on a typical day when you are drinking? How often do you have six or more drinks on one Not asked occasion? Comment: Not asked Sex Assigned at Date Recorded Not on file documented as of this encounter Nursing Notes Yohana Ballesteros APRN, CNP - 12/16/2019 3:07 PM CST Phone call to patient to schedule left breast MRI guided biopsy. Prep, procedure and results processexplained and questions answered. Scheduled for 12/22 with 7;15 am arrival. Patient agreed with plan. Yohana Parker APRN, CNP 12/16/2019, 3:09 PM N FOLDER documented in this encounter Plan of Treatment Not on filedocumented as of this encounter Results MM Post-Bx Mammogram Lt (12/23/2019 9:37 AM LINEN FOLDER) Anatomical Region Laterality Modality Breast Left Mammography Specimen (Source) Anatomical Location Collection Method / Collectio n Time Received Time / Laterality Volume Addenda Addendum by Marjorie Newell MD on 020 4:58 PM LINEN FOLDER Pathology reveals benign breast tissue. This is consistent with the imaging findings. A verbal report was gi durga to the patient. Patient to proceed with management of her known rig ht breast ILC. Impressions 12/23/2019 10:10 AM LINEN FOLDER : MRI guided biopsy of a non-mass enhancem ent in the left breast. ??Pathology pending. Post procedure mammogram obtain ed for clip placement. Narrative 12/23/2019 10:10 AM LINEN FOLDER LEFT BREAST VACUUM ASSISTED MRI GUIDED BIOPSY, [...] patient tolerated this w ell. Briana OSORIO, [facility] LIONEL MR Bx Breast Lt (12/23/2019 9:25 AM LINEN FOLDER) Anatomical Region Laterality Modality Breast, Other Left Magnetic Resonance Specimen (Source) Anatomical Location Collection Method / Collectio n Time Received Time / Laterality Volume Addenda Addendum by Marjorie Newell MD on 020 4:58 PM LINEN FOLDER Pathology reveals benign breast tissue. This is consistent with the imaging findings. A verbal report was gi durga to the patient. Patient to proceed with management of her known rig ht breast ILC. Impressions 12/23/2019 10:10 AM LINEN FOLDER : MRI guided biopsy of a non-mass enhancem ent in the left breast. ??Pathology pending. Post procedure mammogram obtain ed for clip placement. Narrative 12/23/2019 10:10 AM LINEN FOLDER LEFT BREAST VACUUM ASSISTED MRI GUIDED BIOPSY, [...] patient tolerated this w ell. Briana OSORIO, [facility] MRI documented in this encounter Visit Diagnoses Diagnosis Malignant neoplasm of overlapping sites of right breast in female, estrogen receptor positive (HRC) - Primary Abnormal magnetic resonance imaging of l eft breast Malignant neoplasm of overlapping sites of right breast in female, estrogen receptor positive (HRC) Abnormal magnetic resonance imaging of l eft breast Malignant neoplasm of overlapping sites of right breast in female, estrogen receptor positive (HRC) Abnormal magnetic resonance imaging of l eft breast documented in this encounter Care Teams Associate Store Director Relationship Specialty Start Date End Date Mary Kay Lr, BEHAVIORAL SCIENTIST, PROJECT MANAGEMENT DIRECTOR PCP - General Nurse Practitioner 12/01/17 04/23/21 [address] [place] [address] documented as of this encounter
--- OUTSIDE RECORDS SUMMARY | 2021-11-06 20:41 | XMS_ITS | Encounter Summary ---
:1975 Author Organization [facility] Address [address] [place] [address] Care Team Providers Name Role Phone Mary Kay Lr APRN, CHRISTA Primary Care Provider [phone] Reason for Visit Reason Comments Vaginal Problems Encounter Details Date Type Department Care Team Description 10/31/2019 Office Visit [facility] for Jose A Greco Va merlin itching Women Obstetrics and EILEEN MOHAN (Primar y Dx) Gynecology [address] [place] [address] Social History Tobacco Use Types Packs/Day Years Used Date Smoking Tobacco: Never Smokeless Tobacco: Never Alcohol Use Standard Drinks/Week Comments Yes 7 (1 standard drink = 0.6 oz pure alcoho l) Alcohol Habits Answer Date Recorded How often do you have a drink containing 4 or more times a w mechoopda 02/01/2020 alcohol? How many drinks containing alcohol do you have Not asked on a typical day when you are drinking? How often do you have six or more drinks on one Not asked occasion? 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 Candidiasis: Care Instructions Your Care Instructions Candidiasis (say vlu-xuw-KR-uh-artur) is a yeast infection. Yeast normally lives in your body. But it can cause problems if your body's defenses don't work as they should. Some medicines can increase your chance of getting a yeast infection. These include antibiotics, steroids, and cancer drugs. And some diseases like AIDS and diabetes can make you more likely to get yeast infections. There are different types of yeast infections. Thrush is a yeast infection in the mouth. It usually occurs in people with weak immune systems. It causes white patches inside the mouth and throat. Yeast infections of the skin usually occur in skin folds where the skin stays moist. They cause red,oozing patches on your skin. Babies can get these infections under the diaper. People who often weargloves can get them on their hands. Many women get vaginal yeast infections. They are most common when women take antibiotics. These infections can cause the vagina to itch and burn. They also cause white discharge that looks like cottage cheese. In rare cases, yeast infects the blood. This can cause serious disease. This kind of infection is treated with medicine given through a needle into a vein (IV). After you start treatment, a yeast infection usually goes away quickly. But if your immune system isweak, the infection may come back. Tell your doctor if you get yeast infections often. Follow-up care is a lee part of your treatment and safety. Be sure to make and go to all appointments, and call your doctor if you are having problems. It's also a good idea to know your test results and keep a list of the medicines you take. How can you care for yourself at home? ?? Take your medicines exactly as prescribed. Call your doctor if you think you are having a problemwith your medicine. ?? Use antibiotics only as directed by your doctor. ?? Eat yogurt with live cultures. It has bacteria called lactobacillus. It may help prevent some types of yeast infections. ?? Keep your skin clean and dry. Put powder on moist places. ?? If you are using a cream or suppository to treat a vaginal yeast infection, don't use condoms or a diaphragm. Use a different type of control. ?? Eat a healthy diet and get regular exercise. This will help keep your immune system strong. When should you call for help? Watch closely for changes in your health, and be sure to contact your doctor if: ? You do not get better as expected. Where can you learn more? 1. Go to https://[employer]rary or [employer]. 2. Enter N733 in the search box. Current as of: December 16, 2018?Content Version: 12.4 ?? [employer]. Care instructions adapted under license by your healthcare professional. If you have questions abouta medical condition or this instruction, always ask your healthcare professional. [employer] disclaims any warranty or liability for your use of this information. documented in this encounter Progress Notes Jose A Greco APRN, CNM - 10/31/2019 10:00 AM CDT S: Cristiana is a 44 yr old woman who presents today concerned she might have a vag infection again. Shehas had freq yeast and BV in the past but for last 6 mos seems to have been better. She just startednoticing slight vag itching in last few days. She sees ID for asymptomatic HIV and with regards to anal paps, she has had that discussion with them and they feel it is not indicated. She had one in past. Hx of hysterectomy For endometriosis O: BP 124/82 (BP Location: Right Arm, BP Cuff Size: Regular) Pulse 70 Wt 129 lb 6.4 oz (58.7 kg) BMI 20.27 kg/m?? EG: clear, no lesions Vag vault: slight inflammation, mod amount smooth white discharge vag panel obtained. A: vag itching P: Discussed follow up of test results and will treat as indicated. All questions answered. Jose A Greco APRN, CNM 10/31/2019, 10:52 AM documented in this encounter Plan of Treatment Not on filedocumented as of this encounter Procedures Procedure Name Priority Date/Time Associated Diagnosis Comme nts VAGINITIS PANEL Routine 10/31/2019 11:04 AM Vagina itching Res ults for this CDT procedure are i n the results section. documented in this encounter Results (ABNORMAL) Vaginitis Panel (10/31/2019 11:04 AM CDT) [facility] Method Time Signature Gardnerella Positive Negative 10/31/2019 [facility] vaginalis (A) 12:33 PM [facility] Lexi Positive Negative 10/31/2019 [facility] species (A) 12:33 PM [facility] Trichomonas Negative Negative 10/31/2019 [facility] vaginalis 12:33 PM [facility] Specimen Anatomical Collection Method Collection Time Receive d Time (Source) Location / / Volume Laterality Swab (Source SPECIMEN FROM Non-blood 10/31/2019 11:04 10/31/2019 Required) VAGINA / Unknown Collection / AM CDT 11:05 AM CD T Unknown Jose A Greco APRN, CNM LAB_1 Performing Organization Address City/State/ZIP Code Phon e Number [facility] [address] [place] [address] [phone] LABORATORY [place] [phone], [facility] [phone] [facility] documented in this encounter Visit Diagnoses Diagnosis Vagina itching - Primary Pruritus of genital organs documented in this encounter Care Teams Yarn Finisher Relationship Specialty Start Date End Date Mary Kay Lr, MARQUES, TOOL TENDER PCP - General Nurse Practitioner 12/01/17 04/23/21 [address] [place] [address] documented as of this encounter
--- OUTSIDE RECORDS SUMMARY | 2021-11-06 20:41 | XMS_ITS | Encounter Summary ---
:1975 Author Organization [facility] Address [address] [place] [address] Care Team Providers Name Role Phone Mary Kay Lr APRN, PANTOGRAPH I ENGRAVER Primary Care Provider [phone] Reason for Visit Procedure/Equipment (Routine) - Incomplete Specialty Diagnoses / Procedures Referred By Contact Refer red To Contact Diagnoses Abnormal mammogram Saray Barrera MD Procedures MM Post-Stereo Mammogram Rt [address] [place], [place] [address] Referral ID Status Reason Start Date Expiration Date Visits V isits Requested Authorized [id number] Incomplete 12/01/2019 03/01/2021 1 1 Encounter Details Date Type Department Care Team Description 12/08/2019 Ancillary [facility] Saray Barrera, Abnormal mammogram [facility] [address] [place] [address] [phone] Social History Tobacco Use Types Packs/Day Years Used Date Smoking Tobacco: Never Smokeless Tobacco: Never Alcohol Use Standard Drinks/Week Comments Yes 7 (1 standard drink = 0.6 oz pure alcoho l) Alcohol Habits Answer Date Recorded How often do you have a drink containing 4 or more times a w [place] 02/01/2020 alcohol? How many drinks containing alcohol [...] Priority Date/Time Associated Diagnosis Comme nts MM POST-STEREO Routine 12/08/2019 3:12 PM Abnormal mammogram R esults for this MAMMOGRAM RT CDT procedure are i n the [...] cations. Saray Barrera MD RAD [facility] MM US Bx Breast Rt (12/08/2019 3:11 [...] 2. Post procedure mammogram for clip jeanna whitaker Narrative 12/08/2019 3:45 PM CDT RIGHT BREAST [...] compli cations. Saray Barrera MD RAD [facility] documented in this encounter Visit Diagnoses Diagnosis Abnormal mammogram Abnormal mammogram, unspecified Lump or mass in breast - Primary Abnormal mammogram Abnormal mammogram, unspecified Mammographic microcalcification documented in this encounter Care Teams Setter Automatic Spinning Lathe Relationship Specialty Start Date End Date Mary Kay Lr, PERSONAL PROPERTY ASSESSOR, PANTOGRAPH I ENGRAVER PCP - General Nurse Practitioner 12/01/17 04/23/21 [address] [place] [address] documented as of this encounter
--- OUTSIDE RECORDS SUMMARY | 2021-11-06 20:41 | XMS_ITS | Encounter Summary ---
:1975 Author Organization [facility] Address [address] [place] [address] Care Team Providers Name Role Phone Mary Kay Lr APRN, USED EQUIPMENT SALES REPRESENTATIVE Primary Care Provider [phone] Reason for Visit Procedure/Equipment (Routine) - Closed Specialty Diagnoses / Procedures Referred By Contact Refer red To Contact Diagnoses Malignant neoplasm of overlapping sites of right breast in female, estrogen receptor positive (HRC) Briana Perez, Procedures MR Breast Bilat W/WO IV Cont Diag JO, [address] [address] Referral ID Status Reason Start Date Expiration Date Visits Requ ested Visits Authorized [id number] Closed 12/13/2019 03/13/2021 1 1 Encounter Details Date Type Department Care Team Description 12/15/2019 Ancillary Procedure [facility] Briana Perez Malignant neoplasm [address] [facility]. JO Ha, [facility] of overlapping sites [address] [place] [address] [place], [place] female, estrogen [phone] receptor positive [phone] (HRC) (Work) Social History Tobacco Use Types Packs/Day Years Used Date Smoking Tobacco: Never Smokeless Tobacco: Never Alcohol Use Standard Drinks/Week Comments Yes 7 (1 standard drink = 0.6 oz pure alcoho l) Alcohol Habits Answer Date Recorded How often do you have a drink containing 4 or more times a w [place] 02/01/2020 alcohol? How many drinks containing alcohol do you have Not asked on a typical day when you are drinking? How often do you have six or more drinks on one Not asked occasion? Comment: Not asked Sex Assigned at Date Recorded Not on file documented as of this encounter Progress Notes Briana Perez MB, [facility] - 12/15/2019 6:00 PM CST Imaging results were given to the patient over the phone. Also reviewed updated pathology to [facility]. All questions were answered. She needs a left breast MRI biopsy. Will call her with the results of the biopsy to finalize surgical plans. Considering bilateral mastectomies. JO Bauman [facility] 12/16/2019, 2:15 PM AL SCHEDULER documented in this encounter Plan of Treatment Not on filedocumented as of this encounter Procedures Procedure Name Priority Date/Time Associated Diagnosis Comme nts MR BREAST BILAT Routine 12/15/2019 6:10 PM Malignant neoplasm Results for this W/WO IV CONT DIAG DENTAL SCHEDULER of overlapping sites pr ocedure are in of right breast in the resul ts female, estrogen section. receptor positive (HRC) documented in this encounter Results (ABNORMAL) MR Breast Bilat W/WO IV Cont Diag (12/15/2019 6:10 PM DENTAL SCHEDULER) Anatomical Region Laterality Modality Breast, Other Bilateral Magnetic Resonance Specimen (Source) Anatomical Collection Method Collection Time Re ceived Time Location / / Volume Laterality 12/15/2019 6:10 PM DENTAL SCHEDULER Narrative 12/16/2019 9:13 AM DENTAL SCHEDULER EXAM: MR BREAST BILAT W/WO IV CONT DIAG LOCATION: [facility] DATE/TIME: 12/15/2019 6:10 PM INDICATION: 44-year-old [...] were performed. The study was processed using CADstream computer- aided detection system to optimize radio [...] BREAST BILAT W/WO IV CONT DIAG LOCATION: [facility] DATE/TIME: 12/15/2019 6:10 PM INDICATION: 44-year-old [...] were performed. The study was processed using [email or web address] computer-aided detection system to optimize radiologist interpretation [...] ACR BI-RADS Category 4: Suspicious. Briana OSORIO, [facility] RAD MRI documented in this encounter Visit Diagnoses Diagnosis Malignant neoplasm of overlapping sites of right breast in female, estrogen receptor positive (HRC) documented in this encounter Administered Medications Inactive Administered Medications - up to 3 most recent administrations Medication Order MAR Action Action Date Dose Rate Site gadobutrol (GADAVIST) 1 MMOL/ML Given 12/15/2019 6:18 PM DENTAL SCHEDULER 7 m L injection 7.5 mL 7.5 mL, Intravenous, ONCE (NON-SCHEDULED), Starting on Sangeeta 12/15/19 at 1811, Until Sangeeta 12/15/19 at 1818, For 1 dose documented in this encounter Care Teams Accounting Assistant Relationship Specialty Start Date End Date Mary Kay Lr, INTERNATIONAL FLIGHT ATTENDANT, USED EQUIPMENT SALES REPRESENTATIVE PCP - General Nurse Practitioner 12/01/17 04/23/21 [address] [place] [address] documented as of this encounter
--- OUTSIDE RECORDS SUMMARY | 2021-11-06 20:41 | XMS_ITS | Encounter Summary ---
:1975 Author Organization [facility] Address [address] [place] [address] Care Team Providers Name Role Phone Mary Kay Lr APRN, AEROSPACE MANAGER Primary Care Provider [phone] Reason for Referral Procedure/Equipment (Routine) - Incomplete Specialty Diagnoses / Procedures Referred By Contact Refer red To Contact Diagnoses Invasive lobular carcinoma of right breast, stage 1 (HRC) Briana Perez, Procedures Case Request OR - General/Vascular Surg: BILATERAL NIPPLE SPARING MASTECTOMIES, BIOPSY SENTINEL LYMPH NODE(S) JO [facility] [address] [place] [address] Referral ID Status Reason Start Date Expiration Date Visits V isits Requested Authorized [id number] Incomplete 12/26/2019 03/26/2021 1 1 RNATIONAL NURSE Encounter Details Date Type Department Care Team Description 12/16/2019 Prep for Surgery [facility] Briana Perez [facility] JO Ha, [facility] carcinoma of right [address] [facility]. [address] [facility] breast, stage 1 [place] [address] [place] (HRC) (Primary Dx) [phone] [id number] Social History Tobacco Use Types Packs/Day Years Used Date Smoking Tobacco: Never Smokeless Tobacco: Never Alcohol Use Standard Drinks/Week Comments Yes 7 (1 standard drink = 0.6 oz pure alcoho l) Alcohol Habits Answer Date Recorded How often do you have a drink containing 4 or more times a w [place] 02/01/2020 alcohol? How many drinks containing alcohol do you have Not asked on a typical day when you are drinking? How often do you have six or more drinks on one Not asked occasion? Comment: Not asked Sex Assigned at Date Recorded Not on file documented as of this encounter Progress Notes Briana Perez MB, [facility] - 12/16/2019 2:16 PM CST I spoke to the patient last week about her MRI results which demonstrate suspicious findings in the contralateral breast. We had an extensive conversation regarding unilateral vs bilateral and type of mastectomy (simple vs skin vs nipple sparing). She has an appt with plastic surgery later this week to discuss reconstruction options. She is going to have an MRI biopsy of the left breast abnormalities. She is also waiting on results of her genetic testing which she would like to know. I have discussed the risks, benefits, and alternatives to these procedures. She understands the risks include but are not limited to numbness, hematoma, seroma, infection, lymphedema, nipple ischemia and the potential need for re-excision including the nipple in 2% of cases pending final pathology. JO Bauman, [facility] 12/26/2019, 4:47 PM RNATIONAL NURSE documented in this encounter Plan of Treatment Not on filedocumented as of this encounter Results 2019 Novel Coronavirus (COVID-19) (03/27/2020 10:38 AM INTERNATIONAL NURSE) [facility] Method Time Signature COVID-19 Not Not 03/27/2020 [facility] Interpretation Detected Detected 11:51 PM CENTRAL LAB INTERNATIONAL NURSE Specimen Anatomical Collection Method Collection Time Receive d Time (Source) Location / / Volume Laterality Swab (Source Non-blood 03/27/2020 10:38 03/27/2020 Required) Collection / AM INTERNATIONAL NURSE 10:50 AM INTERNATIONAL NURSE Unknown Narrative [facility] CENTRAL LAB - 03/27/2020 11:51 PM INTERNATIONAL NURSE Test performed by Patient Escort Mediated Amplification. TMA has been shown to be equivalent to commercial real-time PCR t ests. This test has been authorized by the FDA under an Emergency Use Authorization (EUA) for use by authorized laboratories. Briana OSORIO, [facility] LAB_1 Performing Organization Address City/State/ZIP Code Phon e Number [facility] [address] [address] documented in this encounter Visit Diagnoses Diagnosis Invasive lobular carcinoma of right [address], stage 1 (HRC) - Primary documented in this encounter Care Teams Sheet Cutter Relationship Specialty Start Date End Date Mary Kay Lr, BEAM DOFFER, AEROSPACE MANAGER PCP - General Nurse Practitioner 12/01/17 3 [address] [place] [address] documented as of this encounter
--- OUTSIDE RECORDS SUMMARY | 2021-11-06 20:41 | XMS_ITS | Encounter Summary ---
:1975 Author Organization [facility] Address [address] [place] [address] Care Team Providers Name Role Phone Mary Kay Lr APRN, CNP Primary Care Provider [phone] Reason for Visit Reason Comments Vaginal Itching since 4-5 days Encounter Details Date Type Department Care Team Description 08/10/2019 Hospital Encounter [facility] [address] , Vaginal itching Urgent Care CHRISTA MOHAN [address] [facility]. vd [facility], [address] [place] [address] [phone] Social History Tobacco Use Types Packs/Day Years Used Date Smoking Tobacco: Never Smokeless Tobacco: Never Alcohol Use Standard Drinks/Week Comments Yes 7 (1 standard drink = 0.6 oz pure alcoho l) Alcohol Habits Answer Date Recorded How often do you have a drink containing 4 or more times a w [place] 02/01/2020 alcohol? How many drinks containing alcohol do you have Not asked on a typical day when you are drinking? How often do you have six or more drinks on one Not asked occasion? Comment: Not asked Sex Assigned at Date Recorded Not on file documented as of this encounter Last Filed Vital Signs Vital Sign Reading Time Taken Comments Blood Pressure 127/84 08/10/2019 5:49 PM CDT Pulse 67 08/10/2019 5:49 PM CDT Temperature 36.9 ??C (98.5 ??F) 08/10/2019 5:49 PM CDT Respiratory Rate 18 08/10/2019 5:49 PM CDT Oxygen Saturation 100% 08/10/2019 5:49 PM CDT Inhaled Oxygen Concentration - - Weight - - Height - - Body Mass Index - - documented in this encounter Medications at Time of Discharge Medication Sig Dispensed Refills Start Date End Date ALBUTEROL IN Inhale 1-2 puffs every 17 0 12/12/2003 4 hours as needed. BIKTARVY 50-200-25 MG Take 1 Tablet by mouth 90 Tablet 3 03/30/2020 tablet daily. estradiol (VIVELLEDOT) Apply 1 Patch to skin 24 Patch 3 01/04/2020 0.025 MG/24HR two times a week. semiweekly patch LORATADINE 0 08/28/2020 ORIndications: Low back pain (HRC) metroNIDAZOLE Insert 1 Applicatorful 70 g 3 12/07/2018 01/04/2020 (METROGEL-VAGINAL) 0.75 vaginally two times a % vaginal week. gelIndications: Bacterial vaginosis Multiple 0 01/04/2020 Vitamins-Minerals (EMERGEN-C IMMUNE OR) documented as of this encounter ED Notes Kiarra Chen, MARQUES, YAM CURER - 08/10/2019 7:43 PM CDT . Chief Complaint Patient presents with ??? Vaginal Itching since 4-5 days Had started to have vaginal itching since bout four to five days And concerns possible yeast infection. URGENT CARE PROGRESS NOTE SUBJECTIVE: Patient is a pleasant 44-year-old female who presents to the Urgent Care with vaginal itching. Duration is 4-5 days. Patient does not experience any discharge. No abdominal pain. No mentionof any urinary symptoms. She is concerned about a yeast infection as she states in the past she has been treated for chronic yeast infections with being on Diflucan for months at a time. She has had BVin the past. No concerns of STDs. Patient's medications, allergies, past medical,surgical, social, and family histories were reviewed and updated as appropriate. MEDICATIONS: Reviewed in [facility] ADVERSE DRUG REACTIONS: Reviewed in [facility] PAST MEDICAL HISTORY: Reviewed in [facility] PAST SURGICAL HISTORY: Reviewed in [facility] ROS: Review of Systems - Negative except what is noted above. OBJECTIVE: Vital Signs: BP 127/84 (BP Location: Left Arm, BP Cuff Size: Regular) Pulse 67 Temp 36.9 ??C (98.5 ??F) (Oral) Resp 18 SpO2 100% General appearance: alert, cooperative, no distress, appears stated age Head: Normocephalic, without obvious abnormality, atraumatic Pelvic: Normal external genitalia. Vaginal vault is well rugated. Minimal discharge in the vault. Noadnexal tenderness or CMT. Results for orders placed or performed during the hospital encounter of 08/10/19 Wet Prep (WTPRP) Result Value Ref Range Fungal Elements Not Detected Not detected Clue Cells Not Detected Not Detected White Blood Cells Not Detected Not Detected Trich Vaginalis Not Detected Not detected ASSESSMENT: 1. Vaginal itching PLAN: Wet prep is negative. At this time we talked about symptomatic cares. Warm tub soaks. She willfollow-up with her OBGYN for any ongoing symptoms. Medications Prescribed this Visit None Understanding was verbalized with treatment plan. Discharged in stable condition. This dictation was performed with the assistance of a voice recognition software and may contain voice recognition errors. documented in this encounter Plan of Treatment Not on filedocumented as of this encounter Procedures Procedure Name Priority Date/Time Associated Diagnosis Comme nts VAGINAL WET PREP STAT 08/10/2019 7:13 PM Vaginal itching Re sults for this CDT procedure are i n the results section. documented in this encounter Results Wet Prep (WTPRP) (08/10/2019 7:13 PM CDT) [facility] Method Time Signature Fungal Not Detected Not detected 08/10/2019 [facility] Elements 7:20 PM CDT [address] [facility] Clue Cells Not Detected Not Detected 08/10/2019 [facility] K 7:20 PM CDT [address] [facility] White Blood Not Detected Not Detected 08/10/2019 [facility] Cells 7:20 PM CDT 3850 [facility] Trich Not Detected Not detected 08/10/2019 [facility] Vaginalis 7:20 PM CDT [address]50 [facility] Specimen Anatomical Collection Method Collection Time Receive d Time (Source) Location / / Volume Laterality Swab (Source VAGINAL CERVIX / Non-blood 08/10/2019 7:13 PM 08/09 7:13 Required) Unknown Collection / CDT PM CDT Unknown Narrative [place] [address] LABORATORY - 08/10/19 20 7:20 PM CDT Methodology: ??Manual Microscopic Kiarra Chen APRN, CHRISTA LAB_1 Performing Organization Address City/State/ZIP Code Phon e Number [facility] [id number] [place], [place] [phone] [address] documented in this encounter Visit Diagnoses Diagnosis Vaginal itching Pruritus of genital organs Triage Assessment Note - Royal Lorenzo RN - 08/10/2019 5:50 PM CDT . Chief Complaint Patient presents with ??? Vaginal Itching since 4-5 days Had started to have vaginal itching since bout four to five days And concerns possible yeast infection. documented in this encounter Care Teams Senior Geologist Relationship Specialty Start Date End Date Mary Kay Lr APRN, YAM CURER PCP - General Nurse Practitioner 12/01/17 04/23/21 [address] [place], [place] [address] documented as of this encounter
--- OUTSIDE RECORDS SUMMARY | 2021-11-06 20:41 | XMS_ITS | Encounter Summary ---
:1975 Author Organization [facility] Address [address], [place] [address] Care Team Providers Name Role Phone Mary Kay Lr APRN, INSULATION HELPER Primary Care Provider [phone] Encounter Details Date Type Department Care Team Description 08/10/2019 Notes/Orders [facility] [address] Urgent Ronak Ramos MD Care [address] [facility] [address] [place] [address] [place] [address] [phone] Social History Tobacco Use Types Packs/Day Years Used Date Smoking Tobacco: Never Smokeless Tobacco: Never Alcohol Use Standard Drinks/Week Comments Yes 7 (1 standard drink = 0.6 oz pure alcoho l) Alcohol Habits Answer Date Recorded How often do you have a drink containing 4 or more times a w [place] 02/01/2020 alcohol? How many drinks containing alcohol do you have Not asked on a typical day when you are drinking? How often do you have six or more drinks on one Not asked occasion? Comment: Not asked Sex Assigned at Date Recorded Not on file documented as of this encounter Progress Notes Ronak Ramos MD - 08/10/2019 4:52 PM CDT Cristiana Castillo was seen in rapid triage at a Non-Respiratory Site. She was noted to be stable and was sent to check-in to be seen at this site. documented in this encounter Plan of Treatment Not on filedocumented as of this encounter Visit Diagnoses Not on filedocumented in this encounter Care Teams Coat Ironer Hand Relationship Specialty Start Date End Date Mary Kay Lr, NUCLEAR WEAPONS SPECIALIST, INSULATION HELPER PCP - General Nurse Practitioner 12/01/17 04/23/21 [address] [place] [address] documented as of this encounter
--- OUTSIDE RECORDS SUMMARY | 2021-11-06 20:41 | XMS_ITS | Encounter Summary ---
:1975 Author Organization [facility] Address [address] [place] [address] Care Team Providers Name Role Phone Mary Kay Lr APRN, UNDER WATER ASSISTANT Primary Care Provider [phone] Reason for Visit Reason Comments LAB RESULTS Encounter Details Date Type Department Care Team Description 10/31/2019 Telephone [facility] Jose A Greco APRN, LAB RESULTS Obstetrics and Gynec ology [address] [address] Social History Tobacco Use Types Packs/Day Years Used Date Smoking Tobacco: Never Smokeless Tobacco: Never Alcohol Use Standard Drinks/Week Comments Yes 7 (1 standard drink = 0.6 oz pure alcoho l) Alcohol Habits Answer Date Recorded How often do you have a drink containing 4 or more times a w [place] 02/01/2020 alcohol? How many drinks containing alcohol do you have Not asked on a typical day when you are drinking? How often do you have six or more drinks on one Not asked occasion? Comment: Not asked Sex Assigned at Date Recorded Not on file documented as of this encounter Nursing Notes Anabell Vila RN - 11/01/2019 8:18 AM CDT Patient was informed of treatment and advised to call clinic if symptoms persist or worsen. Patient stated understanding and appreciation, and agreed with the plan. Anabell Vila RN Estefani Borjas RN - 10/31/2019 9:39 PM CDT 9:40 PM 10/31/2019 Pt did not return call to Careline Note routed back to clinic to try to reach pt with provider message Estefani Borjas RN 10/31/2019, 9:40 PM Estefani Borjas RN - 10/31/2019 6:57 PM CDT 6:57 PM Careline RN called pt,left message to call [facility] at [phone] Estefani Borjas RN 10/31/2019, 6:57 PM Hailey Kolb - 10/31/2019 5:26 PM CDT Pt returning a call from a CareLine nurse Sania Rodriguez RN - 10/31/2019 4:55 PM CDT aliyah Jennings is a nurse at the [facility] with a message from your provider. It is 4:56pm on Thursday. Please contact the [facility] when you get this message at [phone]. Thank you. Sania Rodriguez RN 10/31/2019, 4:57 PM Bridget Banegas RN - 10/31/2019 4:48 PM CDT Component Latest Ref Rng & Units 10/31/2019 [place] Negative Positive (A) Lexi Negative Positive (A) Trich Vaginalis Negative Negative Jose A Greco APRN, CNM 10/31/2019 ??4:34 PM RX was placed for metronid po and terazol vag cream. Please let pt know. Thanks Jose A Greco APRN, CNM ??10/31/2019, 4:33 PM Attempted to call pt and review results/Rx. Left message to call back. Provided clinic call back number and careline number, so that pt may have the opportunity to prevent delay in treatment. [facility] in the event that the pt calls back. Triage to follow. Bridget Banegas DNP, RN, PHN 10/31/19 4:50 PM documented in this encounter Plan of Treatment Not on filedocumented as of this encounter Visit Diagnoses Not on filedocumented in this encounter Care Teams Sorter Upholstery Parts Relationship Specialty Start Date End Date Mary Kay Lr, VIDEO GAMES MECHANIC, UNDER WATER ASSISTANT PCP - General Nurse Practitioner 12/01/17 04/23/21 [address] [place] [address] documented as of this encounter
--- OUTSIDE RECORDS SUMMARY | 2021-11-06 20:41 | XMS_ITS | Encounter Summary ---
:1975 Author Organization [facility] Address [address] [place] [address] Care Team Providers Name Role Phone Mary Kay Lr APRN, RADIOGRAPHIC TECHNOLOGIST Primary Care Provider [phone] Reason for Visit Procedure/Equipment (Routine) - Incomplete Specialty Diagnoses / Procedures Referred By Contact Refer red To Contact Diagnoses Abnormal mammogram Saray Barrera MD Procedures MM Mammogram Diag Rt [address] [place], [place] [address] Referral ID Status Reason Start Date Expiration Date Visits V isits Requested Authorized [id number] Incomplete 12/01/2019 03/01/2021 1 1 Encounter Details Date Type Department Care Team Description 12/08/2019 [facility] Saray Barrera, Abnormal mammogram Procedure [facility] [address] [facility]. [address] [place] [address] [phone] Social History Tobacco Use Types Packs/Day Years Used Date Smoking Tobacco: Never Smokeless Tobacco: Never Alcohol Use Standard Drinks/Week Comments Yes 7 (1 standard drink = 0.6 oz pure alcoho l) Alcohol Habits Answer Date Recorded How often do you have a drink containing 4 or more times a w [place] 02/01/2020 alcohol? How many drinks containing alcohol [...] Date/Time Associated Diagnosis Comme nts MM MAMMOGRAM DIAG Routine 12/08/2019 12:57 PM Abnormal mammogr am Results for this RT CDT procedure are i n the results section. documented in this encounter Results (ABNORMAL) MM Mammogram Diag Rt (12/08/2019 12:57 PM CDT) Anatomical Region Laterality Modality Breast Right Mammography Specimen (Source) Anatomical Collection Method Collection Time Re ceived Time Location / / Volume Laterality 12/08/2019 12:57 PM CDT Narrative 12/08/2019 3:42 PM CDT EXAM: MM MAMMOGRAM DIAG RT, MM US BREAST RT LOCATION: [facility] DATE/TIME: 12/08/2019 12:57 PM [...] examination. Procedure Note Georgie Crockett MD - 12/08/2019Formatt ing of this note might be different from the original. EXAM: MM MAMMOGRAM DIAG RT, MM US BREAST RT LOCATION: [facility] DATE/TIME: 12/08/2019 12:57 PM [...] unspecified documented in this encounter Care Teams Cognos Relationship Specialty Start Date End Date Mary Kay Lr APRN, RADIOGRAPHIC TECHNOLOGIST PCP - General Nurse Practitioner 12/01/17 04/23/21 [address] [place] [address] documented as of this encounter
--- OUTSIDE RECORDS SUMMARY | 2021-11-06 20:41 | XMS_ITS | Encounter Summary ---
:1975 Author Organization [employer] Address [address] [place] [address] Care Team Providers Name Role Phone Mary Kay Lr APRN, TIMBER BUCKER Primary Care Provider [phone] Reason for Visit Reason Comments NURSE PREP FOR PROCEDURE COVID Screening Encounter Details Date Type Department Care Team Description 12/07/2019 Telephone [facility] Sa [facility] Rosalie Valerio RN NURSE PREP FOR Center [address] [facility] PROCEDURE; COVID [address] [facility]. [place], [place] [address] [phone] (Wo rk) Social History Tobacco Use Types Packs/Day Years Used Date Smoking Tobacco: Never Smokeless Tobacco: Never Alcohol Use Standard Drinks/Week Comments Yes 7 (1 standard drink = 0.6 oz pure alcoho l) Alcohol Habits Answer Date Recorded How often do you have a drink containing 4 or more times a w [place] 02/01/2020 alcohol? How many drinks containing alcohol do you have Not asked on a typical day when you are drinking? How often do you have six or more drinks on one Not asked occasion? Comment: Not asked Sex Assigned at Date Recorded Not on file documented as of this encounter Nursing Notes Ellie Valerio RN - 12/07/2019 1:15 PM CDT Medication list and allergies reviewed. Reviewed upcoming exams and/or biopsies. Breast biopsy marker/clip placement reviewed with patient. Patient instructed to take daily medications and eat/drink as normal. Patient given estimated length of time. Phone call to patient to screen for COVID symptoms for 12/07 appointment at [facility]. Patient denies fever, cough, new loss of taste or smell, shortness of breast, sore throat or close contact in the last 14 days with a person known to have COVID-19 and has not been instructed to self- isolate. She has been instructed to wear a mask for the visit. All questions answered. Ellie Valerio RN 12/07/2019, 1:15 PM documented in this encounter Plan of Treatment Not on filedocumented as of this encounter Visit Diagnoses Not on filedocumented in this encounter Care Teams Vacuum Plastic Forming Machine Operator Relationship Specialty Start Date End Date Mary Kay Lr, BUS PERSON, TIMBER BUCKER PCP - General Nurse Practitioner 12/01/17 04/23/21 [address] [place] [address] documented as of this encounter
--- OUTSIDE RECORDS SUMMARY | 2021-11-06 20:41 | XMS_ITS | Encounter Summary ---
:1975 Author Organization [facility] Address [address], [place] [address] Care Team Providers Name Role Phone Mary Kay Lr APRN, CONTACT PRINTER DRY FILM Primary Care Provider [phone] Reason for Visit Reason Comments COVID Screening Encounter Details Date Type Department Care Team Description 11/29/2019 Telephone [facility] Mary Kay Lr, MARQUES, COVID Screening Practice CONTACT PRINTER DRY FILM [address] [place], [place] [address] [place] [address] [phone] (Wo rk) Social History Tobacco Use Types Packs/Day Years Used Date Smoking Tobacco: Never Smokeless Tobacco: Never Alcohol Use Standard Drinks/Week Comments Yes 7 (1 standard drink = 0.6 oz pure alcoho l) Alcohol Habits Answer Date Recorded How often do you have a drink containing 4 or more times a w [place] 02/01/2020 alcohol? How many drinks containing alcohol do you have Not asked on a typical day when you are drinking? How often do you have six or more drinks on one Not asked occasion? Comment: Not asked Sex Assigned at Date Recorded Not on file documented as of this encounter Nursing Notes Di Rodriguez - 11/29/2019 10:21 AM CDT COVID-19 Pre-Screening For your safety and ours, we???d like to screen for COVID-19 concerns before scheduling your visit. ?? Have you had a positive or pending COVID test in the past 10 days or been instructed to self-isolate? No ?? Do you currently have: fever >100, sore throat OR new or worsening: cough, loss of taste or smell, shortness of breath? No ?? In the last 14 days, have you had close contact with a person known to have COVID-19? No I will schedule your visit now. [Bag Machine Adjuster: Complete decision tree/continue scheduling.] Di Rodriguez documented in this encounter Plan of Treatment Not on filedocumented as of this encounter Visit Diagnoses Not on filedocumented in this encounter Care Teams Automatic Corn Grinder Operator Relationship Specialty Start Date End Date Mary Kay Lr, TYPE CASTING MACHINE OPERATOR, CONTACT PRINTER DRY FILM PCP - General Nurse Practitioner 12/01/17 04/23/21 [address] [place] [address] documented as of this encounter
--- OUTSIDE RECORDS SUMMARY | 2021-11-06 20:42 | XMS_ITS | Encounter Summary ---
:1975 Author Organization [facility] Address [address] [place] [address] Care Team Providers Name Role Phone Mary Kay Lr APRN, INVESTOR Primary Care Provider [phone] Reason for Visit Reason Comments Revisit Encounter Details Date Type Department Care Team Description 06/09/2018 Office Visit [facility] Mike Hicks omatic human 401 Infectious T, immunodeficiency virus Disease [address] (HIV) infection status [address] [place], [place] (HRC) (Primary Dx) [place] [phone] Social History Tobacco Use Types Packs/Day Years Used Date Smoking Tobacco: Never Smokeless Tobacco: Never Alcohol Use Standard Drinks/Week Comments Yes 7 (1 standard drink = 0.6 oz pure alcoho l) Alcohol Habits Answer Date Recorded How often do you have a drink containing 4 or more times a w [facility] 02/01/2020 alcohol? How many drinks containing alcohol do you have Not asked on a typical day when you are drinking? How often do you have six or more drinks on one Not asked occasion? Comment: Not asked Sex Assigned at Date Recorded Not on file documented as of this encounter Last Filed Vital Signs Vital Sign Reading Time Taken Comments Blood Pressure 121/74 06/09/2018 2:07 PM CDT Pulse 60 06/09/2018 2:07 PM CDT Temperature 36.5 ??C (97.7 ??F) 06/09/2018 2:07 PM CDT Respiratory Rate - - Oxygen Saturation - - Inhaled Oxygen Concentration - - Weight 60.1 kg (132 lb 6.4 oz) 06/09/2018 2:07 PM CDT Height - - Body Mass Index 20.74 01/06/2018 1:40 PM ABRASIVE GRINDER documented in this encounter Patient Instructions Patient InstructionsMike Hicks MD - 06/09/2018 2:00 PM CDT Follow up in 6 months. We will switch to biktarvy 1 tablet daily. Call our clinic if you are unable to get this medication [phone]. Thank you for coming in today. Mike Hicks MD 06/09/2018 documented in this encounter Progress Notes Mike Hicks MD - 06/09/2018 2:00 PM CDT This patient comes in for follow [...] She began therapy with genvoya on March 192016. She denies any missed doses. She denies any side effects to this treatment. She feels that overall she is making a good adjustment to the diagnosisof HIV. She developed a GI illness after a trip to [facility] in January this has resolved. Currently, she denies fevers, chills or night sweats. She has a good appetite. Her weight has been stable. No abdominal pain. She denies any problems with her mood. She has had a hysterectomy. Social history She lives in [place] with her . 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 Theyhave dogs and cats at home. She also has a horse at a different site. 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 They do not have any children. No tobacco use. She drinks a glass of wine every evening. No illegal drugs. No IV drug abuse. No recent travel. She previously has spenttime in [place], [place], [place] and [place]. She took a trip to the [place] a few years ago. 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 Patient Active Problem List Diagnosis ??? S/P hysterectomy ??? Screening for cervical cancer ??? Asthma (HRC) ??? Plantar fasciitis ??? Asymptomatic HIV infection (HRC) ??? Non-seasonal allergic rhinitis due to pollen Family history Her grandmother had amyotrophic lateral sclerosis. Her father is going through treatment for multiple myeloma. Her mother has depression. ALL: NKDA BP 121/74 Pulse 60 Temp 97.7 ??F (36.5 ??C) (Oral) Wt 132 lb 6.4 oz (60.1 kg) BMI 20.74 kg/m?? Pt A, in NAD answering questions appropriately Oropharynx: no lesions, no exudates No maxillary sinus tenderness Neck: supple, no adenopathy Lungs: CTA B CV RRR s1s2 no murmur Abd: S/NT/ND +BS no guarding, no rebound, no masses Ext: no edema, NT Skin no rash LABS: HIV fourth-generation test positive HIV confirmation positive HIV mutation analysis negative HIV integrase genotype negative Toxoplasma serology negative CMV serology positive Tuberculosis gold negative Hep C negative Hep B immune Hep A immune Component Latest Ref Rng & Units 06/07/2018 T3 % 62.1 - 85.0 % 77.8 T3 Absolute 500-2,544 /UL 1,086 T4 % 31.6 - 65.7 % 42.4 T4 Absolute 337-1,687 /UL 592 T8 % 10.0 - 40.0 % 36.4 T8 Absolute 140 - 907 /UL 508 T4/T8 Ratio 0.8 - 3.7 1.2 HIV Interpretation Not Detected Detected (A) Copies mL <30 copies/mL <30 Logcopies mL <1.47 log copies/mL <1.47 A/P 42-year-old female with HIV, detected on a life insurance exam, confirmed on testing through [facility] She is tolerating treatment with genvoya well. She has obtained full viral suppression with a CD4 count of 592. No recent infections. She has had a hysterectomy so will not become . I have talked to her about switching to biktarvy today. She is interested in changing. We will see if this is covered by her insurance. She will remain on genvoya until that time. Her will also be switching. She will receive her influenza vaccination today. PLAN: Change genvoya to biktarvy (if covered) She will contact us if she is not able to get this med or if she has side effects Follow-up in 6 months Mike Hicks MD 06/10/2018 documented in this encounter Plan of Treatment Not on filedocumented as of this encounter Visit Diagnoses Diagnosis Asymptomatic human immunodeficiency viru s (HIV) infection status (HRC) - Primary Asymptomatic human immunodeficiency viru s (HIV) infection status documented in this encounter Care Teams Drainage Design Coordinator Relationship Specialty Start Date End Date Mary Kay Lr, BATH STEWARD, INVESTOR PCP - General Nurse Practitioner 12/01/17 04/23/21 [address] [place] [address] documented as of this encounter
--- OUTSIDE RECORDS SUMMARY | 2021-11-06 20:42 | XMS_ITS | Encounter Summary ---
:1975 Author Organization [facility] Address [address] [place] [address] Care Team Providers Name Role Phone Deepjordan Mary Kay Pitt APRN, PUBLICATIONS MANAGER Primary Care Provider [phone] Encounter Details Date Type Department Care Team Description 03/26/2018 Telephone [facility] and Roxy Knapp MD Gynecology Physician s [address] [place], [place] [phone] (Wo rk) Social History Tobacco Use Types [...] encounter Nursing Notes Sari Clay RN - 03/26/2018 3:50 PM CST Result Notes for Vaginitis Panel Notes recorded by Roxy Diane MD on 03/26/2018 at 3:45 PM LUMBER TRIMMER Please notify patient of + BV and NO yeast on vaginitis swab. ??Recommend that she treat with FlagylPO 500 mg BID x 7 days. ??She doesn't need to use terconazole. Roxy Diane MD Informed pt of the results and provider message. Patient Informed of the following: ?? It is important to finish full course of treatment ?? Do not consume alcohol if using Metronidazole and for 48 hours following completion. Interaction with alcohol may cause vomiting. ?? Recommended to follow-up with clinician if symptoms do not improve within 7 days. ?? Recommended refraining from intercourse during tx. ?? Rx was sent to her preferred pharmacy. Pt states understanding and agrees with the plan. She has no further questions or concerns at this time. Sari Clay RN ER TRIMMER documented in this encounter Plan of Treatment Not on filedocumented as of this encounter Visit Diagnoses Diagnosis Bacterial vaginosis - Primary Vaginitis and vulvovaginitis, unspecifie d documented in this encounter Care Teams Burglar Alarm Mechanic Relationship Specialty Start Date End Date Mary Kay Lr, REMOTE ENCODING OPERATIONS SUPERVISOR, PUBLICATIONS MANAGER PCP - General Nurse Practitioner 12/01/17 04/23/21 [address] [place] [address] documented as of this encounter
--- OUTSIDE RECORDS SUMMARY | 2021-11-06 20:42 | XMS_ITS | Encounter Summary ---
:[address] [facility] Address [address] [address] Care Team Providers Name Role Phone Mary Kay Lr APRN, BATTERY INSPECTOR Primary Care Provider [phone] Reason for Visit Reason Comments Medication Request bictarvy Encounter Details Date Type Department Care Team Description 09/09/2018 Telephone [facility] Mike Hicks, Med ication Request 401 Infectious Disesanam victoria MD (bictarvy) [address] [place] [address] [place], [place] [phone] (Wo rk) Social History Tobacco Use Types [...] documented as of this encounter Nursing Notes Vonda Aguero, RN - 09/09/2018 4:17 PM CDT Rx sent on 06/09/[address] Hicks. Called and verified that Rx was available at preferred pharmacy, which they do have Rx. Called patient and educated that she may call preferred pharmacy to fill Rx. Patient expressed understanding and had no further questions. Vonda Aguero RN 09/09/2018, 4:18 PM Grace Moore - 09/09/2018 2:55 PM CDT Patient can not find the hard copy of the rx she is not even sure if it was given to her but she didnot start it right away now she cant find it to start. Can she get a new script or have it called into her pharmacy that is listed documented in this encounter Plan of Treatment Not on filedocumented as of this encounter Visit Diagnoses Not on filedocumented in this encounter Care Teams Industry Operations Investigator Relationship Specialty Start Date End Date Mary Kay Lr, ARMATURE COIL WINDER, BATTERY INSPECTOR PCP - General Nurse Practitioner 12/01/17 04/23/21 [address] [place] [address] documented as of this encounter
--- OUTSIDE RECORDS SUMMARY | 2021-11-06 20:42 | XMS_ITS | Encounter Summary ---
:1975 Author Organization [facility] Address [address], [place] [address] Care Team Providers Name Role Phone Be Mary Kay Pitt APRN, PHONE ENGINEER Primary Care Provider [phone] Reason for Visit Reason Comments Refill BIKTARVY 50-200-25 MG tablet [Pharmacy Med Name: Biktarvy Oral Tablet 50-200-25 MG] Encounter Details Date Type Department Care Team Description 03/14/2019 Refill [facility] 401 Chante Sharma MD Refill (BIKTARVY Infectious Disease [address] 50-200-25 MG tablet [facility] [place] [address] [Pharmacy Med Name: [place] [address] Biktarvy Oral Tablet [phone] 50-200-25 MG]) Social History Tobacco Use Types Packs/Day Years Used Date Smoking Tobacco: Never Smokeless Tobacco: Never Alcohol Use Standard Drinks/Week Comments Yes 7 (1 standard drink = 0.6 oz pure alcoho l) Alcohol Habits Answer Date Recorded How often do you have a drink containing 4 or more times a w [place] 02/01/2020 alcohol? How many drinks containing alcohol do you have Not asked on a typical day when you are drinking? How often do you have six or more drinks on one Not asked occasion? Comment: Not asked Sex Assigned at Date Recorded Not on file documented as of this encounter Nursing Notes Vicky Son RN - 03/14/2019 8:12 AM CST Further Assistance Needed on Refill from Clinician RN reviewed. Medication not listed on standing order. -> Medication cannot be delegated. Last qualifying visit: 12/15/2018 (in INFECTIOUS DISEASE with MARIE SHARMA) Next scheduled visit: None Last ordered by MARIE SHARMA: 06/09/2018 (278 days ago) QTY: 30, Refills: 5, Sig: take 1 tablet by mouth daily. (unchanged) Review pended order for accuracy and sign if appropriate and Close encounter Requested Prescriptions Pending Prescriptions Disp Refills ??? BIKTARVY 50-200-25 MG tablet [Pharmacy Med Name: Biktarvy Oral Tablet 50-200-25 MG] 90 Tablet 0 Sig: Take 1 Tablet by mouth daily. Vicky Son RN 03/14/2019, 8:12 AM OOD FISHERMAN Interface, Out Surescripts Prov Query - 03/14/2019 7:02 AM CST BIKTARVY 50-200-25 MG tablet [Pharmacy Med Name: Biktarvy Oral Tablet 50-200-25 MG] Unassigned -> Medication cannot be delegated. Last qualifying visit: 12/15/2018 (in INFECTIOUS DISEASE with MARIE SHARMA) Next scheduled visit: None Last ordered by MARIE SHARMA: 06/09/2018 (278 days ago) QTY: 30, Refills: 5, Sig: take 1 tablet by mouth daily. (unchanged) Powered by [employer], Reference: [id number], 03/14/2019 7:02:26 AM SEAFOOD FISHERMAN, Pool: EDITH RUSSELL ([id number]) OOD FISHERMAN documented in this encounter Plan of Treatment Not on filedocumented as of this encounter Visit Diagnoses Not on filedocumented in this encounter Care Teams Store Detective Relationship Specialty Start Date End Date Mary Kay rL, MARQUES, PHONE ENGINEER PCP - General Nurse Practitioner 12/01/17 04/23/21 [address] [place] [address] documented as of this encounter
--- OUTSIDE RECORDS SUMMARY | 2021-11-06 20:42 | XMS_ITS | Encounter Summary ---
:1975 Author Organization [employer] Address [address] [place] [address] Care Team Providers Name Role Phone Mary Kay Lr APRN, COLLATOR OPERATOR Primary Care Provider [phone] Reason for Visit Reason Comments Vaginal Itching Encounter Details Date Type Department Care Team Description 03/26/2018 Office Visit [facility] Roxy Diane Vaginal discharge and Gynecology MD [place] (Primary Dx) Physicians [address] [place], [place] [address] [place], [place] [phone] Social History Tobacco Use Types Packs/Day Years Used Date Smoking Tobacco: Never Smokeless Tobacco: Never Alcohol Use Standard Drinks/Week Comments Yes 7 (1 standard drink = 0.6 oz pure alcoho l) Alcohol Habits Answer Date Recorded How often do you have a drink containing 4 or more times a w [place] 02/01/2020 alcohol? How many drinks containing alcohol do you have Not asked on a typical day when you are drinking? How often do you have six or more drinks on one Not asked occasion? Comment: Not asked Sex Assigned at Date Recorded Not on file documented as of this encounter Last Filed Vital Signs Vital Sign Reading Time Taken Comments Blood Pressure 122/73 03/26/2018 10:44 AM SUPERVISOR FISH PROCESSING Pulse 71 03/26/2018 10:44 AM SUPERVISOR FISH PROCESSING Temperature - - Respiratory Rate - - Oxygen Saturation - - Inhaled Oxygen Concentration - - Weight - - Height - - Body Mass Index - - documented in this encounter Progress Notes Roxy Diane MD - 03/26/2018 10:40 AM CST [facility] Note CC: persistent vaginitis HPI: Cristiana Castillo is a 43 y.o. old with history of HIV and RAMYA/BSO who presents for persistent vaginitis symptoms. The patient reports symptoms started mid-February - itching and white discharge. She was seen in urgent care and + for yeast, given 3 doses of fluconazole (took every other day for 6 days). She felt that this worsened her symptoms. She took OTC Monistat for 3 days and this helped some but symptoms again recurred so she used 5 day Monistat again. Feels like symptoms still present. No odor. Has had yeast infections in the past and treated with fluconazole that was effective. LMP: No LMP recorded. Patient has had a hysterectomy. Review of Systems: A 10 point review of systems was negative except as noted in HPI OBHx: MHx: Past Medical History: Diagnosis Date ??? Asthma ([facility]C) SHx: Past Surgical History: Procedure Laterality Date ??? HYSTERECTOMY 2011 with BSO (in [place]) ??? TONSILLECTOMY Water Proofer Hx: Last Pap smear: prior to hyst. Social: Social History Tobacco Use ??? Smoking status: Never Smoker ??? Smokeless tobacco: Never Used Substance Use Topics ??? Alcohol use: Yes Alcohol/week: 4.2 oz Types: 7 Glasses of wine per week ??? Drug use: No Meds: Outpatient Medications Prior to Visit Medication Sig Dispense Refill ??? ALBUTEROL IN Inhale 1-2 puffs every 4 hours as needed. 17 PRN ??? GENVOYA [phone] MG tablet take 1 tablet by mouth daily with breakfast 90 Tablet 0 ??? LORATADINE OR ??? Multiple Vitamins-Minerals (EMERGEN-C IMMUNE OR) ??? azithromycin (ZITHROMAX) 500 MG tablet Take 1 Tablet by mouth daily. 3 Tablet 0 ??? estradiol (VIVELLEDOT) 0.025 MG/24HR semiweekly patch Apply 1 Patch to skin two times a week. 8 Each 1 No facility-administered medications prior to visit. FamHx: Family History Problem Relation Age of Onset ??? Glaucoma Father ??? Hyperlipidemia Father ??? Cataract Father ??? Cancer, Other Father Mulitple Myeloma ??? Depression Mother ??? Thyroid Disorder Mother ??? Cancer, Breast Negative Family History ??? Cancer, Ovary Negative Family History ??? Cancer, Colon Negative Family History ??? Diabetes, Type II Negative Family History Allergies: No Known Allergies Physical Examination: BP 122/73 Pulse 71 Estimated body mass index is 20.05 kg/m?? as calculated from the following: Height as of 01/06/18: 5' 7 (1.702 m). Weight as of 01/06/18: 128 lb (58.1 kg). GEN - NAD, comfortable; appears stated age NEURO - grossly non-focal HEENT - Atraumatic, normocephalic LUNG - non-labored breathing CV- regular rate ABD - Soft, non-tender, non-distended PELVIC - Normal appearing external genitalia; on speculum exam, normal-appearing vaginal kaba and cuff without lesions or masses; moderate thick white discharge present Assessment/Plan: Cristiana Castillo is a 43 y.o. old HIV+, with persistent vaginitis symptoms despite treatment for con. Vaginitis swab, genital culture and GC/chlam collected and pending, treat if positive. Will treat for presumptive yeast based on exam today - thick white discharge. Treat with 7 days vaginal terconazole. Roxy Diane MD 03/26/2018 1:46 PM RVISOR FISH PROCESSING documented in this encounter Plan of Treatment Not on filedocumented as of this encounter Procedures Procedure Name Priority Date/Time Associated Diagnosis Comme nts VAGINITIS PANEL Routine 03/26/2018 11:08 AM Vaginal discharge Results for this SUPERVISOR FISH PROCESSING procedure are i n the results section. CHLAMYDIA & GC (14 Routine 03/26/2018 11:06 AM Vaginal dischar ge Results for this YEARS AND OLDER) SUPERVISOR FISH PROCESSING procedure a re in the results section. GENITAL CULTURE Routine 03/26/2018 11:06 AM Vaginal discharge Results for this SUPERVISOR FISH PROCESSING procedure are i n the results section. documented in this encounter Results (ABNORMAL) Vaginitis Panel (03/26/2018 11:08 AM SUPERVISOR FISH PROCESSING) [facility] Method Time Signature Trichomonas Negative NEG [facility] Gardnerella Positive NEG [facility] Con Negative NEG [facility] Specimen Anatomical Collection Method Collection Time Receive d Time (Source) Location / / Volume Laterality 03/26/2018 11:08 03/26/2018 AM SUPERVISOR FISH PROCESSING 11:10 AM SUPERVISOR FISH PROCESSING Narrative [facility] - 03/26/2018 1:[address] Performed at [facility], [address] [place] [id number] Roxy Diane MD LAB_1 Performing Organization Address City/State/ZIP Code Phon e Number [facility] [phone] Genital Culture (03/26/2018 11:06 AM SUPERVISOR FISH PROCESSING) Component Value Ref Test Analysis Performed At Patholo gist Range Method Time Signature Specimen Swab [facility] Description Vaginal Swab [facility] Special atypical/resi [facility] Requests stant yeast [facility] Culture Few [facility] Growth Consistent with Vaginal [facility] Report Status 03/29/2018 [facility] Final [facility] Specimen Anatomical Collection Method Collection Time Receive d Time (Source) Location / / Volume Laterality SWAB / Unknown 03/26/2018 11:06 9 AM SUPERVISOR FISH PROCESSING 11:10 AM SUPERVISOR FISH PROCESSING Roxy Diane MD LAB_1 Performing Organization Address City/State/ZIP Code Phon e Number [facility] [phone] Chlamydia & GC (03/26/2018 11:06 AM SUPERVISOR FISH PROCESSING) PathCelles gist Method Time Signature Source Endocervical [facility] Chlamydia Negative NEG [facility] Comment: Test Performed by Deburring And Tooling Machine Operator Mediated Amplification GC (N. gonorrhoeae) Negative NEG [facility] Comment: Test Performed by Deburring And Tooling Machine Operator Mediated Amplification Specimen Anatomical Collection Method Collection Time Receive d Time (Source) Location / / Volume Laterality 03/26/2018 11:06 03/26/2018 AM SUPERVISOR FISH PROCESSING 11:10 AM SUPERVISOR FISH PROCESSING Narrative [facility] - 03/26/2018 8:[address] Performed at [facility], [address] [place] [address] ??[id number] Roxy Diane MD LAB_1 Performing Organization Address City/[facility]/ZIP Code Phon e Number [facility] [phone] documented in this encounter Visit Diagnoses Diagnosis Vaginal discharge - Primary Leukorrhea, not specified as infective documented in this encounter Care Teams Unhairing Inspector Relationship Specialty Start Date End Date Mary Kay Lr, STRINGED INSTRUMENT ASSEMBLER, COLLATOR OPERATOR PCP - General Nurse Practitioner 12/01/17 04/23/21 [address] [place] [address] documented as of this encounter
--- OUTSIDE RECORDS SUMMARY | 2021-11-06 20:42 | XMS_ITS | Encounter Summary ---
:1975 Author Organization [facility] Address [address] [place] [address] Care Team Providers Name Role Phone Mary Kay Lr APRN, HAND FLATWORK FINISHER Primary Care Provider [phone] Encounter Details Date Type Department Care Team Description 06/07/2018 Lab Visit [facility] ry Asymptomatic HIV infection [address] ([facility]) [place], [place] [address] Social History Tobacco Use Types Packs/Day Years Used Date Smoking Tobacco: Never Smokeless Tobacco: Never Alcohol Use Standard Drinks/Week Comments Yes 7 (1 standard drink = 0.6 oz pure alcoho l) Alcohol Habits Answer Date Recorded How often do you have a drink containing 4 or more times a w [place] 02/01/2020 alcohol? How many drinks containing alcohol do you have Not asked on a typical day when you are drinking? How often do you have six or more drinks on one Not asked occasion? Comment: Not asked Sex Assigned at Date Recorded Not on file documented as of this encounter Progress Notes Varsha Donohue - 06/07/2018 3:00 PM CDT Addended by: VARSHA DONOHUE on: 06/08/2018 03:12 PM Modules accepted: Orders Vicky Son RN - 06/07/2018 3:00 PM CDT Snapeeet message sent. documented in this encounter Plan of Treatment Not on filedocumented as of this encounter Procedures Procedure Name Priority Date/Time Associated Diagnosis Comme nts HIV-1 RNA QUANT Routine 06/07/2018 3:16 PM Asymptomatic HIV Re sults for this CDT infection (HRC) procedure ar e in the results section. CBC AND DIFFERENTIAL Routine 06/07/2018 3:16 PM Asymptomatic H IV Results for this PANEL CDT infection (HRC) procedure ar e in the results section. TREPONEMA SCREEN Routine 06/07/2018 3:16 PM Asymptomatic HIV R esults for this CDT infection (HRC) procedure ar e in the results section. CHLAMYDIA & GC, URINE Routine 06/07/2018 3:16 PM Asymptomatic HIV Results for this (14 YEARS AND OLDER) CDT infection (HRC) proc edure are in the results section. TB GOLD, QUANTIFERON Routine 06/07/2018 3:16 PM Asymptomatic H IV Results for this CDT infection (HRC) procedure ar e in the results section. LIPID PANEL AND Routine 06/07/2018 3:16 PM Asymptomatic HIV Re sults for this DIRECT LDL(IF NEEDED) CDT infection (HRC) pro cedure are in the results section. CREATININE / GFR Routine 06/07/2018 3:16 PM Asymptomatic HIV R esults for this CDT infection (HRC) procedure ar e in the results section. COMPLETE BLOOD Routine 06/07/2018 3:16 PM Asymptomatic HIV Res ults for this COUNT-W/DIFF CDT infection (HRC) procedure ar e in the results section. T CELL RATIO Routine 06/07/2018 3:16 PM Asymptomatic HIV Resul ts for this CDT infection (HRC) procedure ar e in the results section. BILIRUBIN, TOTAL & Routine 06/07/2018 3:16 PM Asymptomatic HIV Results for this DIRECT CDT infection (HRC) procedure ar e in the results section. UA MICRO IF Routine 06/07/2018 3:16 PM Asymptomatic HIV Resul ts for this CDT infection (HRC) procedure ar e in the results section. HGB A1C Routine 06/07/2018 3:16 PM Asymptomatic HIV Resul ts for this CDT infection (HRC) procedure ar e in the results section. ALT (SGPT) Routine 06/07/2018 3:16 PM Asymptomatic HIV Resul ts for this CDT infection (HRC) procedure ar e in the results section. AST Routine 06/07/2018 3:16 PM Asymptomatic HIV Resul ts for this CDT infection (HRC) procedure ar e in the results section. BUN Routine 06/07/2018 3:16 PM Asymptomatic HIV Resul ts for this CDT infection (HRC) procedure ar e in the results section. documented in this encounter Results (ABNORMAL) HIV-1 RNA Quant by TMA (06/07/2018 3:16 PM CDT) [facility] Method Time Signature HIV Interp Detected Not 06/08/2018 [facility] (A) Detected 3:24 PM CDT [facility] HIV Copies <30 <30 06/08/2018 [facility] per/ml copies/mL 3:24 PM CDT C[facility]AL LAB HIV Log <1.47 <1.47 log 06/08/2018 [facility] Copies/ml copies/mL 3:24 PM CDT C[facility]AL LAB Specimen Anatomical Collection Method / Collection Time Recei bruno Time (Source) Location / Volume Laterality Blood Venipuncture / 06/07/2018 3:16 06/08/2018 3:12 Unknown PM CDT PM CDT Narrative [facility] - 06/08/2018 3:24 PM CDT Test performed by Fitness Consultant Mediated Amplification. Mike Hicks MD LAB_1 Performing Organization Address City/State/ZIP Code Phon e Number [facility] [address] [address] Complete Blood Count-W/Diff (06/07/2018 3:16 PM CDT) P athologist Signature WBC 5.6 3.5 - 10.5 06/07/2018 [facility] x10(9)/L 8:50 PM CDT HOSPITAL RBC 4.56 3.90 - 06/07/2018 [facility] 5.03 8:50 PM CDT HOSPITAL x10(12)/L Hemoglobin 13.3 12.0 - 06/07/2018 [facility] 15.5 g/dL 8:50 PM CDT HOSPITAL HCT 41.0 34.9 - 06/07/2018 [facility] 44.5 % 8:50 PM CDT HOSPITAL MCV 89.9 80.0 - 06/07/2018 [facility] 100.0 fL 8:50 PM CDT HOSPITAL MCH 29.2 27.6 - 06/07/2018 [facility] 33.3 pg 8:50 PM CDT HOSPITAL MCHC 32.4 31.5 - 06/07/2018 [facility] 35.2 g/dL 8:50 PM CDT HOSPITAL RDW 12.1 11.9 - 06/07/2018 [facility] 15.5 % 8:50 PM CDT HOSPITAL Platelets 209 150 - 450 06/07/2018 [facility] x10(9)/L 8:50 PM CDT HOSPITAL Automated NRBC 0 <=0 /100 06/07/2018 [facility] WBC 8:50 PM CDT HOSPITAL Neutrophil 2.8 1.7 - 7.0 06/07/2018 [facility] Absolute 10(9)/L 8:50 PM CDT HOSPITAL Lymphocyte 1.8 1.0 - 4.8 06/07/2018 [facility] Absolute 10(9)/L 8:50 PM CDT HOSPITAL Monocytes 0.4 0.2 - 0.9 06/07/2018 [facility] Absolute 10(9)/L 8:50 PM CDT HOSPITAL Eosinophil 0.5 0.1 - 0.5 06/07/2018 [facility] Absolute 10(9)/L 8:50 PM CDT HOSPITAL Basophil 0.1 0.0 - 0.3 06/07/2018 [facility] Absolute 10(9)/L 8:50 PM CDT HOSPITAL Immature Gran % 0.0 0.0 - 0.5 06/07/2018 [facility] % 8:50 PM CDT HOSPITAL Specimen Anatomical Collection Method / Collection Time Recei bruno Time (Source) Location / Volume Laterality Blood Venipuncture / 06/07/2018 3:16 06/07/2018 3:16 Unknown PM CDT PM CDT Mike Hicks MD LAB_1 Performing Organization Address City/State/ZIP Code Phon e Number [facility] [address] [place] [address] [address], [facility] UA Micro If (ONLY FOR PTS ON TENOFOVIR OR TRUVADA) (06/07/2018 3:16 PM CDT) [facility] Method Time Signature Urine Color Yellow Straw-Yellow 06/07/2018 [facility] 3:31 PM CDT Urine Clarity Clear Clear 06/07/2018 [facility] 3:31 PM CDT Specific 1.015 1.005 - 06/07/2018 [facility] [place], 1.030 3:31 PM CDT Urine PH Urine 6.5 5.0 - 8.0 06/07/2018 [facility] 3:31 PM CDT Protein, Negative Neg/Trace 06/07/2018 [facility] Urine Qual 3:31 PM CDT (mg/dL) Glucose Urine Negative Negative 06/07/2018 [facility] Qual (mg/dL) 3:31 PM CDT Ketones, Negative Negative 06/07/2018 [facility] Urine (mg/dL) 3:31 PM CDT Urobilinogen, 0.2 <2.0 06/07/2018 [facility] Urine (EU/dL) 3:31 PM CDT Bilirubin Negative Negative 06/07/2018 [facility] Urine 3:31 PM CDT Blood, Urine Trace Neg/Trace 06/07/2018 [facility] 3:31 PM CDT Nitrite Urine Negative Negative 06/07/2018 [facility] 3:31 PM CDT Leukocyte Negative Negative 06/07/2018 [facility] Est. 3:31 PM CDT Specimen Anatomical Collection Method Collection Time Receive d Time (Source) Location / / Volume Laterality Urine URINE SPECIMEN Non-blood 06/07/2018 3:16 PM 019 3:16 COLLECTION, CLEAN Collection / CDT PM CDT CATCH / Unknown Unknown Mike Hicks MD LAB_1 Performing Organization Address City/[facility] Code Phon e Number [facility] [address] [place] [address] Treponema Screen (06/07/2018 3:16 PM CDT) [facility] Method Time Signature Treponema Screen 0.077 {s_co_ratio 06/08/2018 [facility] Result } 9:53 AM CDT LABORATORY Treponema Screen Non Non 06/08/2018 [facility] Interpretation Reactive Reactive 9:53 AM CDT LABORATORY Specimen Anatomical Collection Method / Collection Time Recei bruno Time (Source) Location / Volume Laterality Blood Venipuncture / 06/07/2018 3:16 06/07/2018 3:16 Unknown PM CDT PM CDT Mike Hicks MD LAB_1 Performing Organization Address City/State/ZIP Code Phon e Number [facility] [address] [place] [address] T Cell Ratio (06/07/2018 3:16 PM CDT) P athologist Signature CD3 (T Cells) % 77.8 62.1 - 06/08/2018 [facility] 85.0 % 8:24 AM CDT HOSPITAL CD3 (T Cells) 1,086 500-2,544 06/08/2018 [facility] Absolute /UL 8:24 AM CDT HOSPITAL CD3/CD4 (T 42.4 31.6 - 06/08/2018 [facility] Coleman Cells) % 65.7 % 8:24 AM CDT HOSPITAL CD3/CD4 (T 592 337-1,687 06/08/2018 [facility] Coleman Cells) /UL 8:24 AM CDT HOSPITAL Absolute CD3/CD8 (T 36.4 10.0 - 06/08/2018 [facility] Suppressor/Cyto 40.0 % 8:24 AM CDT HOSPITAL toxic Cells) % CD3/CD8 (T 508 140 - 907 06/08/2018 [facility] Suppressor/Cyto /UL 8:24 AM CDT HOSPITAL toxic Cells) Absolute CD4/CD8 Ratio 1.2 0.8 - 3.7 06/08/2018 [facility] 8:24 AM CDT HOSPITAL Specimen Anatomical Collection Method / Collection Time Recei bruno Time (Source) Location / Volume Laterality Blood Venipuncture / 06/07/2018 3:16 06/07/2018 3:16 Unknown PM CDT PM CDT Mike Hicks MD LAB_1 Performing Organization Address City/State/ZIP Code Phon e Number [address] [address] TB Gold, Quantiferon (06/07/2018 3:16 PM CDT) Patholo gist Method Time Signature TB Gold, Negative Negative 06/09/2018 [facility] QuantiFeron Plus 1:47 PM CDT HOSPITAL TB Nil Value 0.06 06/09/2018 [facility] 1:47 PM CDT HOSPITAL TB1 Minus Nil <0.01 06/09/2018 [facility] Value 1:47 PM CDT HOSPITAL TB2 Minus Nil <0.01 06/09/2018 [facility] Value 1:47 PM CDT HOSPITAL Mitogen Minus >10.00 06/09/2018 [facility] Nil Value 1:47 PM CDT HOSPITAL Specimen Anatomical Collection Method / Collection Time Recei bruno Time (Source) Location / Volume Laterality Blood Venipuncture / 06/07/2018 3:16 06/07/2018 3:16 Unknown PM CDT PM CDT [facility] - 06/09/2018 1:47 PM CD T Nil ?TB1-Nil ? TB2-Nil ?Mitogen-Nil ??Result ?Interpretation [...] Mike Hicks MD LAB_1 Performing Organization Address City/[facility] Phon e Number [facility] [address] [place] [address] [address], [facility] Lipid Panel and Direct LDL(If Needed) (06/07/2018 3:16 PM CDT) [facility] Method Time Signature Cholesterol 182 0 - 199 06/07/2018 [facility] mg/dL 6:53 PM CDT [facility] Triglyceride 147 <=149 06/07/2018 [facility] mg/dL 6:53 PM CDT [facility] HDL Cholesterol 63 >=40 06/07/2018 [facility] mg/dL 6:53 PM CDT [facility] LDL, Calculated 90 <130 06/07/2018 [facility] mg/dL 6:53 PM CDT [facility] Non HDL Chol, 119 <=159 06/07/2018 [facility] Calculated mg/dL 6:53 PM CDT [facility]AL LAB Cholesterol/HDL 2.9 06/07/2018 [facility] Ratio 6:53 PM CDT [facility] Specimen Anatomical Collection Method / Collection Time Recei bruno Time (Source) Location / Volume Laterality Blood Venipuncture / 06/07/2018 3:16 06/07/2018 3:16 Unknown PM CDT PM CDT Mike Hicks MD LAB_1 Performing Organization Address City/[facility] Phon e Number [facility] [address] [address] Hgb A1c (06/07/2018 3:16 PM CDT) [facility] Method Time Signature Hemoglobin A1C 5.1 <=5.6 % 06/07/2018 [facility] 8:07 PM CDT [facility] Specimen Anatomical Collection Method / Collection Time Recei bruno Time (Source) Location / Volume Laterality Blood Venipuncture / 06/07/2018 3:16 06/07/2018 3:16 Unknown PM CDT PM CDT Mike Hicks MD LAB_1 Performing Organization Address City/State/ZIP Code Phon e Number [facility] C[facility] [address] [address] Creatinine / GFR (06/07/2018 3:16 PM CDT) [facility] Method Time Signature Creatinine 0.68 0.55 - 06/07/2018 [facility] 1.02 6:53 PM CDT CENTRAL LAB mg/dL GFR, Estimated >60 >60 06/07/2018 [facility] mL/min/1. 6:53 PM CDT CENTRAL LAB 73m2 GFR, Est If >60 >60 06/07/2018 [facility] mL/min/1. 6:53 PM CDT CENTRAL LAB Greenlandic 73m2 Specimen Anatomical Collection Method / Collection Time Recei bruno Time (Source) Location / Volume Laterality Blood Venipuncture / 06/07/2018 3:16 06/07/2018 3:16 Unknown PM CDT PM CDT Mike Hicks MD LAB_1 Performing Organization Address [facility] Code Phon e Number [facility] C[facility]AL [facility] [address] [address] Chlamydia & GC, Urine (06/07/2018 3:16 PM CDT) [facility] Method Time Signature Chlamydia Not Not 06/08/2018 [facility] Trachomatis Detected Detected 2:16 PM CDT CENTRAL LAB STD N. gonorrhoeae Not Not 06/08/2018 [facility] STD Detected Detected 2:16 PM CDT C[facility]TRAL LAB Specimen Anatomical Collection Method Collection Time Receive d Time (Source) Location / / Volume Laterality Urine Non-blood 06/07/2018 3:16 PM 9 3:16 Collection / CDT PM CDT Unknown Narrative [facility] - 06/08/2018 2:16 PM CDT Test performed by Molecular Detection Mkie Hicks MD LAB_1 Performing Organization Address [facility]/ZIP Code Phon e Number [facility] C[facility] [address] [address] BUN (06/07/2018 3:16 PM CDT) P athologist Signature BUN 11 7 - 26 06/07/2018 [facility] mg/dL 6:53 PM CDT CENTRAL LAB Specimen Anatomical Collection Method / Collection Time Recei bruno Time (Source) Location / Volume Laterality Blood Venipuncture / 06/07/2018 3:16 06/07/2018 3:16 Unknown PM CDT PM CDT Mike Hicks MD LAB_1 Performing Organization Address [facility] Phon e Number [facility] [address] [address] Bilirubin, Total & Direct (06/07/2018 3:16 PM CDT) Patholo gist Method Time Signature Bilirubin, 0.2 0.0 - 0.5 06/07/2018 [facility] Direct mg/dL 6:53 PM CDT C[facility]TRAL LAB Bilirubin, 0.5 0.2 - 1.2 06/07/2018 [facility] Total mg/dL 6:53 PM CDT C[facility]AL LAB Specimen Anatomical Collection Method / Collection Time Recei bruno Time (Source) Location / Volume Laterality Blood Venipuncture / 06/07/2018 3:16 06/07/2018 3:16 Unknown PM CDT PM CDT Mike Hicks MD LAB_1 Performing Organization Address [facility] Phon e Number [facility] [address] [address] AST (06/07/2018 3:16 PM CDT) P athologist Signature AST (SGOT) 19 10 - 40 06/07/2018 [facility] U/L 6:53 PM CDT C[facility]AL LAB Specimen Anatomical Collection Method / Collection Time Recei bruno Time (Source) Location / Volume Laterality Blood Venipuncture / 06/07/2018 3:16 06/07/2018 3:16 Unknown PM CDT PM CDT Mike Hicks MD LAB_1 Performing Organization Address [facility] Phon e Number [facility] [address] [address] ALT (SGPT) (06/07/2018 3:16 PM CDT) P athologist Signature ALT (SGPT) 21 0 - 55 U/L 06/07/2018 [facility] 6:53 PM CDT C[facility]TRAL LAB Specimen Anatomical Collection Method / Collection Time Recei bruno Time (Source) Location / Volume Laterality Blood Venipuncture / 06/07/2018 3:16 06/07/2018 3:16 Unknown PM CDT PM CDT Mike Hicks MD LAB_1 Performing Organization Address City/State/[facility] Code Phon e Number [facility] [address] [address] documented in this encounter Visit Diagnoses Diagnosis Asymptomatic HIV infection (HRC) Asymptomatic human immunodeficiency viru s (HIV) infection status documented in this encounter Care Teams Shop Teacher Relationship Specialty Start Date End Date Mary Kay Lr APRN, HAND FLATWORK FINISHER PCP - General Nurse Practitioner 12/01/17 04/23/21 [address] [place] [address] documented as of this encounter
--- OUTSIDE RECORDS SUMMARY | 2021-11-06 20:42 | XMS_ITS | Encounter Summary ---
:1975 Author Organization [facility] Address [address] [place] [address] Care Team Providers Name Role Phone Mary Kay Lr APRN, ACCESS SPECIALIST Primary Care Provider [phone] Reason for Visit Reason Comments VAGINITIS PAP,ROUTINE Encounter Details Date Type Department Care Team Description 04/08/2019 Office Visit [place] Saray Barrera, Vulvar itc mari (Primary Dx); Obstetrics and MD Screening for breast cancer; Gynecology 0 [facility] Routine health maintenance; Physicians [place], [place] Well woman exam with routine gynecological exam; [address] [address] Screening for malignant neoplasm of cerv ix; [place], [place] [phone] Special scre ening examination for human papillomavirus (HPV); [address] (Work) Vaginal itching [phone] Social History Tobacco Use Types Packs/Day Years [...] Sign Reading Time Taken Comments Blood Pressure 135/81 04/08/2019 4:24 PM PSYCHIATRIC SECRETARY Pulse 60 04/08/2019 4:24 PM PSYCHIATRIC SECRETARY Temperature - - Respiratory Rate - - Oxygen Saturation - - Inhaled Oxygen Concentration - - Weight 60.8 kg (134 lb) 04/08/2019 4:24 PM PSYCHIATRIC SECRETARY Height 170.2 cm (5' 7) 04/08/2019 4:24 PM PSYCHIATRIC SECRETARY Body Mass Index 20.99 04/08/2019 4:24 PM PSYCHIATRIC SECRETARY documented in this encounter Patient Instructions Patient InstructionsSaray Barrera MD - 04/08/2019 4:20 PM CST Images from the original note were not included. So nice to meet you today! 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 For recurrent BV, we can plan to treat with 2 weeks of metronidazole and then twice weekly metrogel for 4 months. For Yeast, we can treat with one dose of diflucan every 3 days for two doses and then once a week for 4 months. 3. We will contact you once the results of the testing returns. Well Visit, Ages 18 to 50: Care Instructions Your Care Instructions Physical exams can help you stay healthy. Your doctor has checked your overall health and may have suggested ways to take good care of yourself. He or she also may have recommended tests. At home, you can help prevent illness with healthy eating, regular exercise, and other steps. Follow-up care is a lee part of your treatment and safety. Be sure to make and go to all appointments, and call your doctor if you are having problems. It's also a good idea to know your test results and keep a list of the medicines you take. How can you care for yourself at home? ?? Reach and stay at a healthy weight. This will lower your risk for many problems, such as obesity,diabetes, heart disease, and high blood pressure. ?? Get at least 30 minutes of physical activity on most days of the week. Walking is a good choice. You also may want to do other activities, such as running, swimming, cycling, or playing tennis or team sports. Discuss any changes in your exercise program with your doctor. ?? Do not smoke or allow others to smoke around you. If you need help quitting, talk to your doctor about stop-smoking programs and medicines. These can increase your chances of quitting for good. ?? Talk to your doctor about whether you have any risk factors for sexually transmitted infections (STIs). Having one sex partner (who does not have STIs and does not have sex with anyone else) is a good way to avoid these infections. ?? Use control if you do not want to have children at this time. Talk with your doctor about the choices available and what might be best for you. ?? Protect your skin from too much sun. When you're outdoors from 10 a.m. to 4 p.m., stay in the shade or cover up with clothing and a hat with a wide brim. Wear sunglasses that block UV rays. Even when it's cloudy, put broad-spectrum sunscreen (SPF 30 or higher) on any exposed skin. ?? See a dentist one or two times a year for checkups and to have your teeth cleaned. ?? Wear a seat belt in the car. Follow your doctor's advice about when to have certain tests. These tests can spot problems early. For everyone ?? Cholesterol. Have the fat (cholesterol) in your blood tested after age 20. Your doctor will tell you how often to have this done based on your age, family history, or other things that can increase your risk for heart disease. ?? Blood pressure. Have your blood pressure checked during a routine doctor visit. Your doctor will tell you how often to check your blood pressure based on your age, your blood pressure results, and other factors. ?? Vision. Talk with your doctor about how often to have a glaucoma test. ?? Diabetes. Ask your doctor whether you should have tests for diabetes. ?? Colon cancer. Your risk for colorectal cancer gets higher as you get older. Some experts say thatadults should start regular screening at age 50 and stop at age 75. Others say to start before age 50 or continue after age 75. Talk with your doctor about your risk and when to start and stop screening. For women ?? Breast exam and mammogram. Talk to your doctor about when you should have a clinical breast exam and a mammogram. Medical experts differ on whether and how often women under 50 should have these tests. Your doctor can help you decide what is right for you. ?? Cervical cancer screening test and pelvic exam. Begin with a Pap test at age 21. The test often is part of a pelvic exam. Starting at age 30, you may choose to have a Pap test, an HPV test, or both tests at the same time (called co- testing). Talk with your doctor about how often to have testing. ?? Tests for sexually transmitted infections (STIs). Ask whether you should have tests for STIs. Youmay be at risk if you have sex with more than one person, especially if your partners do not wear condoms. For men ?? Tests for sexually transmitted infections (STIs). Ask whether you should have tests for STIs. Youmay be at risk if you have sex with more than one person, especially if you do not wear a condom. ?? Testicular cancer exam. Ask your doctor whether you should check your testicles regularly. ?? Prostate exam. Talk to your doctor about whether you should have a blood test (called a PSA test)for prostate cancer. Experts differ on whether and when men should have this test. Some experts suggest it if you are older than 45 and are -[place] or have a father or brother who got prostatecancer when he was younger than 65. When should you call for help? Watch closely for changes in your health, and be sure to contact your doctor if you have any problems or symptoms that concern you. Where can you learn more? 1. Go to https://NetClarity/[employer] or [employer]/Ipselexlibrary. 2. Enter P072 in the search box. Current as of: January 21, 2018 Content Version: 12.2 ?? 5412-7533 [employer]. Care instructions adapted under license by your healthcare professional. If you have questions about a medical condition or this instruction, always ask your healthcare professional. [employer] disclaims any warranty or liability for your use of this information. Physical Activity for Adults What is physical activity? Physical activity is any kind of activity that gets your body moving. The types of physical activity that can help you get fit and stay healthy include: ?? Aerobic or cardio activities that make your heart beat faster and make you breath harder, such as brisk walking, riding a bike, or running. Aerobic activities strengthen your heart and lungs and build up your endurance. ?? Strength training activities that make your muscles work against, or resist, something, such aslifting weights or doing push-ups. These activities help tone and strengthen your muscles. ?? Stretches that allow you to move your joints and muscles through their full range of motion. Stretching helps you be more flexible and avoid injury. What are the benefits of physical activity? Being active is one of the best things you can do to get fit and stay healthy. It helps you to: ?? Feel stronger and have more energy to ad all the things you like to do. ?? Focus better at school and perform better in sports. ?? Feel, think, and sleep better. ?? Reach and stay at a healthy weight. ?? Lose fat and build lean muscle. ?? Lower your risk for serious health problems. ?? Keep your bones, muscles, and joints strong. Being fit lets you do more physical activity. And it lets you work out harder without as much effort. How can you make physical activity part of your life? Get at least 30 minutes of exercise on most days of the week. Walking is a good choice. You may alsowant to do other activities, such as running, swimming, cycling, or playing tennis or team sports. Pick activities that you like - ones that make your heart beat faster, your muscles stronger, and your muscles and joints more flexible. If you find more than one thing you like doing, do them all. Youdon't have to do the same thing every day. Get your heart pumping every day. Any activity that makes your heart beat faster and keep it at thatrate for a while counts. Here are some great ways to get your heart beating faster: ?? Go for brisk walk, run, or bike ride. ?? Go for a hike or swim. ?? Go in-line skating. ?? Play a game of touch football, basketball, or soccer. ?? Dance or jump rope. ?? Play tennis or racquetball. ?? Climb stairs. Even some technology administrator can be aerobic - just do them at a faster pace. Vacuuming, raking or mowing the lawn, sweeping the garage, and washing and waxing the car all can help get your heart rate up. Strengthen your muscles during the week. You don't have to lift heavy weights or grow big, bulky muscles to get stronger. Doing a few simple activities that make your muscles work against, or resist,something can help you get stronger. For example you can: ?? Do push-ups or sit-ups, which use your own body weight as resistance. ?? Lift weights or dumbbells or use stretch bands at home or in a gym or community center. Stretch your muscles often. Stretching will help you as you become more active. It can help you stayflexible, loosen tight muscles, and avoid injury. It can also help improve your balance and posture and can be a great way to relax. Be sure to stretch the muscles you'll be using when you work out. It's best to warm your muscles slightly before you stretch them. Walk or do some other light aerobic activity for a few minutes, and then start stretching. When you stretch your muscles: ?? Do it slowly. Stretching is not about going fast or making sudden movements. ?? Don't push or bounce during a stretch. ?? Hold each stretch for at least 15 to 30 seconds, if you can. You should feel a stretch in the muscle, but not pain. ?? Breathe out as you do the stretch. The breathe in as you hold the stretch. Don't hold your breathwhen you stretch. If you're worried about how more activity might affect your health, have a checkup before you start.Follow any special advice your doctor gives you for getting a smart start. Preventing Osteoporosis: Care Instructions Your Care Instructions Osteoporosis means the bones are weak and thin enough that they can break easily. The older you are,the more likely you are to get osteoporosis. But with plenty of calcium, vitamin D, and exercise, you can help prevent osteoporosis. The preteen and teen years are a lee time for bone building. With the help of calcium, vitamin D, and exercise in those early years and beyond, the bones reach their peak density and strength by age 30. After age 30, your bones naturally start to thin and weaken. The stronger your bones are at around age 30, the lower your risk for osteoporosis. But no matter what your age and risk are, your bones still need calcium, vitamin D, and exercise to stay strong. Alsoavoid smoking, and limit alcohol. Smoking and heavy alcohol use can make your bones thinner. Talk to your doctor about any special risks you might have, such as having a close relative with osteoporosis or taking a medicine that can weaken bones. Your doctor can tell you the best ways to protect your bones from thinning. Follow-up care is a lee part of your treatment and safety. Be sure to make and go to all appointments, and call your doctor if you are having problems. It's also a good idea to know your test results and keep a list of the medicines you take. How can you care for yourself at home? ?? Get enough calcium and vitamin D. The [employer] of Medicine recommends adults younger than age 51need 1,000 mg of calcium and 600 IU of vitamin D each day. Women ages 51 to 70 need 1,200 mg of calcium and 600 IU of vitamin D each day. Men ages 51 to 70 need 1,000 mg of calcium and 600 IU of vitamin D each day. Adults 71 and older need 1,200 mg of calcium and 800 IU of vitamin D each day. ? Eat foods rich in calcium, like yogurt, cheese, milk, and dark green vegetables. ? Eat foods rich in vitamin D, like eggs, fatty fish, cereal, and fortified milk. ? Get some sunshine. Your body uses sunshine to make its own vitamin D. The safest time to be out inthe sun is before 10 a.m. or after 3 p.m. Avoid getting sunburned. Sunburn can increase your risk ofskin cancer. ? Talk to your doctor about taking a calcium plus vitamin D supplement. Ask about what type of calcium is right for you, and how much to take at a time. Adults ages 19 to 50 should not get more than 2,500 mg of calcium and 4,000 IU of vitamin D each day, whether it is from supplements and/or food. Adults ages 51 and older should not get more than 2,000 mg of calcium and 4,000 IU of vitamin D each dayfrom supplements and/or food. ?? Get regular bone-building exercise. Weight-bearing and resistance exercises keep bones healthy byworking the muscles and bones against gravity. Start out at an exercise level that feels right for you. Add a little at a time until you can do the following: ? Do 30 minutes of weight-bearing exercise on most days of the week. Walking, jogging, stair climbing, and dancing are good choices. ? Do resistance exercises with weights or elastic bands 2 to 3 days a week. ?? Limit alcohol. Drink no more than 1 alcohol drink a day if you are a woman. Drink no more than 2 alcohol drinks a day if you are a man. ?? Do not smoke. Smoking can make bones thin faster. If you need help quitting, talk to your doctor about stop-smoking programs and medicines. These can increase your chances of quitting for good. When should you call for help? Watch closely for changes in your health, and be sure to contact your doctor if you have any problems. Where can you learn more? 1. Go to https://NetClarity/[employer] or [employer]/SmallknotraUnidesk. 2. Enter S618 in the search box. Current as of: December 16, 2017 Content Version: 12.2 ?? 7683-7534 [employer]. Care instructions adapted under license by your healthcare professional. If you have questions about a medical condition or this instruction, always ask your healthcare professional. [employer] disclaims any warranty or liability for your use of this information. HIATRIC SECRETARY documented in this encounter Progress Notes Merlene Manriquez CT ([facility]) - 04/08/2019 4:20 PM PSYCHIATRIC SECRETARY Addended by: MERLENE MANRIQUEZ on: 04/27/2019 12:16 PM Modules accepted: Orders Roque Joel - 04/08/2019 4:20 PM PSYCHIATRIC SECRETARY Addended by: ROQUE JOEL on: 04/27/2019 02:24 PM Modules accepted: Orders Saray Barrera MD - 04/08/2019 4:20 PM CST FUND ACCOUNTING MANAGER [facility] HPI: Cristiana Castillo is a 44 y.o. woman with hx of HIV and recurrent BV/yeast infections s/p RAMYA, BSOwho presents for preventive health examination. Current concerns: - vulvar and vaginal itching for the past week or so, no abnormal discharge noted, has had recurrentBV and yeast in past. No vaginal dryness. No bleeding. Menses are absent given hysterectomy, RAMYA, BSO for endometriosis in 2011, on HRT with estrogen patch(no uterus so no progesterone needed) Sexual activity: yes with male partner History of abnl paps: HPV positive PAP and anal PAP 2018, recommended to undergo anal colposcopy - negative History of STDs: denies Health Care Maintenance: Last pap: anal PAP 2018, HPV positive, colposcopy negative Mammo: BIRADS-1 2019 Colonoscopy: not yet indicatd Contraception:s/p hysterectomy does not have adequate calcium in diet. Does not take additional supplements. Present exercise habits: does some activities which elevate heart rate several times a week.. Domestic violence concerns:denies any concern. 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 RAMYA, BSO for endometriosis in 2011, on HRT with estrogen patch PMHx/PSHx: History updated, please see that section. Meds and Allergies reviewed FAMILY HISTORY: Family History Problem Relation Age of Onset ??? Glaucoma Father ??? Hyperlipidemia Father ??? Cataract Father ??? Cancer, Other Father Mulitple Myeloma ??? Depression Mother ??? Thyroid Disorder Mother ??? Cancer, Breast Negative Family History ??? Cancer, Ovary Negative Family History ??? Cancer, Colon Negative Family History ??? Diabetes, Type II Negative Family History SOCIAL HISTORY: Nonsmoker, no excessive EtOH Review Of Systems Review of Systems CONSTITUTIONAL: No fevers or chills, unexpected increase or decrease in weight gain EYES: No recent change in vision ENT: No recent change in hearing RESPIRATORY: No shortness of breath, wheezing, cough CARDIOVASCULAR: No palpitations or chest pain GASTROINTESTINAL: No abdominal pain, diarrhea, constipation, blood in stool GENITOURINARY: No problems with dysuria, hematuria, abnormal discharge, foul smelling discharge MUSCULOSKELETAL: No muscle or joint aches SKIN: No skin rashes or worrisome lesions OBJECTIVE BP 135/81 (BP Location: Right Arm, BP Cuff Size: Regular) Pulse 60 Ht 5' 7 (1.702 m) Wt 134 lb (60.8 kg) BMI 20.99 kg/m?? Estimated body mass index is 20.99 kg/m?? as calculated from the following: Height as of this encounter: 5' 7 (1.702 m). Weight as of this encounter: 134 lb (60.8 kg). General appearance: NAD Skin: No worrisome moles or other lesions Neck: Thyroid palpable but not enlarged without nodularity and rises appropriately on swallow Lungs: Clear to auscultation bilaterally Heart: Regular rate and rhythm without murmur Breasts: normal without suspicious masses, skin or nipple changes or axillary nodes. Abdomen: Abdomen soft, non-tender without masses or organomegaly Legs: Normal Pelvic: External genitalia including labia majora and minora, Bartholin's, [place]'s glands, and satinder-anal region are normal. No urethral lesions or tenderness. Bladder is nontender and well-supported. On spec exam vaginal mucosa is moist and minimally rugated without lesion. Cervix is surgically absent. Pap and vaginitis panel obtained. On bimanual exam, uterus is surgically absent. There are no adnexal masses or tenderness appreciated. 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 Symptoms of vaginal/vulvar itching concerning for genitourinary syndrome of menopause (GSM) vs. Yeast vaginitis given history. Awaiting vaginitis panel. See plan belowif positive. PLAN 1. [facility]: The following screening tests are ordered: Vaginal cuff PAP, THS, lipid panel, mammogram 2. Contraception: s/p Hysterectomy 3. 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 Awaiting results of vaginitis panel: for recurrent BV, we can plan to treat with 2 weeks of metronidazole and then twice weekly metrogel for 4 months. For recurrent yeast, we can treat with one doseof diflucan every 3 days for two doses and then once a week for 4 months. Reviewed: Bone health, Vit D/Ca supplementation, Bone health, HRT ongoing use, vulvar hygiene, recurrent BV/yeast management, GSM Saray Barrera MD 04/08/2019, 3:58 PM HIATRIC SECRETARY documented in this encounter Plan of Treatment Not on filedocumented as of this encounter Procedures Procedure Name Priority Date/Time Associated Diagnosis Comme nts MISCELLANEOUS LAB Routine 04/08/2019 5:38 Well woman exam with Results for this TEST PM PSYCHIATRIC SECRETARY routine gynecological proced ure are in exam the results section. PAP TEST Routine 04/08/2019 5:38 Screening for Results for this PM PSYCHIATRIC SECRETARY malignant neoplasm of proced ure are in cervix the results section. HPV WITH 16 18 Routine 04/08/2019 5:38 Special screening Resul ts for this GENOTYPING, PM PSYCHIATRIC SECRETARY examination for human proced ure are in CERVICAL/ENDOCERVICAL papillomavirus (HPV ) the results section. VAGINITIS PANEL Routine 04/08/2019 5:38 Vulvar itching Results for this PM PSYCHIATRIC SECRETARY Vaginal itching procedure ar e in the results section. documented in this encounter Results Miscellaneous Lab Test (04/08/2019 5:38 PM PSYCHIATRIC SECRETARY) [facility] Method Time Signature TEST RESULT: SEE NOTE 04/29/2019 [place] 8:28 PM CDT LABORATORIES Comment: Test name ? Result Flag Units ??RefIntvl ?? HPV Source ? Cerv/Endoce rv HPV High Risk by PCR, [facility] ?Negative ? INTERPRETIVE INFORMATION: HPV by PCR, [facility] This test amplifies DNA of 14 high-risk HPV types (16, 18, 31, 33, 35, 39, 45, 51, 52, 56, 58, 59, 66, and 68) associated with cervical cancer and its precursor lesion s. Sensitivity may be affected by specimen collection methods, stage of infection, and the presence of interfering substances. Results should be interpreted in conjunction with other av ailable laboratory and clinical data. A negative high-risk HPV result does not exclude the presence of other high-risk HPV type s, the possibility of future cytologic abnormalities, underlyi ng CIN2-3, or cancer. This test is intended for medical purpos es only and is not valid for the evaluation of suspected sexual a buse or for other forensic purposes. HPV testing should not be used for screening or management of atypical squamous cells of undetermined significance (ASCUS) in women under age 21. Performed by [facility], [address] [place] [id number] [email or web address], Jean Claude Gold MD, Lab. Director Specimen Anatomical Collection Method Collection Time Receive d Time (Source) Location / / Volume Laterality Brushing 04/08/2019 5:38 PM 0 2:24 PSYCHIATRIC SECRETARY PM CDT Saray Barrera MD LAB_1 Performing Organization Address [facility]/ZIP Code Phon e Number [facility] [address] [phone] (ABNORMAL) Vaginitis Panel (04/08/2019 5:38 PM PSYCHIATRIC SECRETARY) [facility] [employer] Method Time Signature Gardnerella Negative Negative 04/11/2019 [place] vaginalis 8:59 AM PSYCHIATRIC SECRETARY LAB Lexi species Positive (A) Negative 04/11/2019 [place] 8:59 AM PSYCHIATRIC SECRETARY LAB Trichomonas Negative Negative 04/11/2019 [place] vaginalis 8:59 AM PSYCHIATRIC SECRETARY LAB Specimen Anatomical Collection Method Collection Time Receive d Time (Source) Location / / Volume Laterality Swab (Source SPECIMEN FROM Non-blood 04/08/2019 5:38 PM 04/08/19 20 5:45 Required) VAGINA / Unknown Collection / PSYCHIATRIC SECRETARY PM PSYCHIATRIC SECRETARY Unknown Saray Barrera MD LAB_1 Performing Organization Address City/[facility]/ZIP Code Phon e Number [facility] [address] [place] [address] HPV with 16 18 Genotyping (04/08/2019 5:38 PM PSYCHIATRIC SECRETARY) [facility] [employer] Method Time Signature HPV High Risk Not Detected Not detected 04/12/2019 [facility] Type 16 PCR 2:31 PM PSYCHIATRIC SECRETARY HOSPITAL HPV High Risk Not Detected Not Detected 04/12/2019 [facility] Type 18 PCR 2:31 PM PSYCHIATRIC SECRETARY HOSPITAL HPV High Risk Not Detected Not detected 04/12/2019 [facility] Other Than 2:31 PM PSYCHIATRIC SECRETARY [facility] 16/18 Specimen Anatomical Collection Method Collection Time Receive d Time (Source) Location / / Volume Laterality Cervical Broom ENTIRE ENDOCERVIX 04/08/2019 5:38 PM 5:46 / Unknown PSYCHIATRIC SECRETARY PM PSYCHIATRIC SECRETARY [facility] - 04/12/2019 2:31 PM CS T The Ricardo HPV test is a qualitative in vitro test for the detection of Human Papillomavirus in SurePath patient specimens. The test utilizes amplification of target DNA by Polymerase Chain Reaction (PCR ) and nucleic acid hybridization for the detection of 14 high-risk (HR) HPV types. The assay tests for high risk types (16, 18, 31, 33, 35, 39, 45, 51, 52, 56, 58, 59, 66, and 68). Saary Barrera MD LAB_1 Performing Organization Address City/State/ZIP Code Phon e [address] [address] PAP Test (04/08/2019 5:38 PM PSYCHIATRIC SECRETARY) Component Value Ref Test Analysis Performed Pathologis t Range Method Time At Signature Case Report Pap ? Case: [id number] ? 04/27/2019 [facility] Authorizing Provider: ??Saray Varela MD ? Collected: ? 04/08/2019 05:38 PM ? 1:54 PM HOSPITAL Ordering Location: ? [facility] Obstetrics and Received: ?04/08/2019 05:46 PM ? CDT ? Gynecology Physicians ? First Screen: ? Ifeoma Broussard ? Rescreen: ?Anabella Long R ? Specimen: ?Pap Test, Rou yris, Vaginal cuff ? Pap Specimen Satisfactory for 04/27/2019 [facility] Adequacy evaluation, 1:54 PM HOSPITAL endocervical/ambriz CDT sformation zone component absent. Pap Negative for 04/27/2019 [facility] Electr onically Interpretation intraepithelial 1:54 PM HOSPITAL signed by lesion or CDT Nany Long dee malignancy R, CT ( CP) on (NILM). 04/27/2019 at 1:54 PM FUND ACCOUNTING MANAGER COMMENT The specimen 04/27/2019 [facility] source for this 1:54 PM HOSPITAL Pap test order CDT has been changed from cervical/endocerv ical to vaginal cuff to reflect the source of collection documented in the patient's electronic medical record (EMR). Pap Other Fungal organisms 04/27/2019 [facility] Findings morphologically 1:54 PM HOSPITAL consistent with CDT Lexi spp. Gross The specimen is received in SurePath fixative and properly labeled. 1 Pap- stained SurePath slide is prepared. 04/27/2019 [facility] Description .yecenia 1:54 PM HOSPITAL CDT Pap Disclaimer The Pap test is a 04/27/2019 [facility] S screening test 1:54 PM HOSPITAL designed to aid CDT in the detection of cervical cancer and its precursor lesions. It is not a diagnostic procedure and should not be used as the sole means of detecting cervical cancer. Both false-positive and false-negative reports may occur. Embedded Images 04/27/2019 [facility] 1:54 PM [facility]OSPITAL CDT Specimen Anatomical Collection Method Collection Time Receive d Time (Source) Location / / Volume Laterality Other Specimen 04/08/2019 5:38 PM 020 5:46 Type (Vaginal PSYCHIATRIC SECRETARY PM PSYCHIATRIC SECRETARY cuff) Comment: LMP: No LMP recorded. Patient h as had a hysterectomy. Saray Barrera MD LAB PATHOLOGY Performing Organization Address City/State/ZIP Code Phon e Number [address] [address] documented in this encounter Visit Diagnoses Diagnosis Vulvar itching - Primary Pruritus of genital organs Routine health maintenance Routine general medical examination at a health care facility Well woman exam with routine gynecologic al exam Routine gynecological examination Screening for malignant neoplasm of cerv ix Screening for malignant neoplasm of the cervix Special screening examination for human papillomavirus (HPV) Vaginal itching Pruritus of genital organs documented in this encounter Care Teams Ambulatory Technologist Relationship Specialty Start Date End Date Mary Kay Lr, BROILER CHEF OR COOK, ACCESS SPECIALIST PCP - General Nurse Practitioner 12/01/17 04/23/21 [address] [place] [address] documented as of this encounter
--- OUTSIDE RECORDS SUMMARY | 2021-11-06 20:42 | XMS_ITS | Encounter Summary ---
:1975 Author Organization [email or web address] Address [address] [place] [address] Care Team Providers Name Role Phone Mary Kay Lr APRN, SCRAP PICKER Primary Care Provider [phone] Reason for Visit Reason Comments Revisit ID2 Encounter Details Date Type Department Care Team Description 12/15/2018 Office Visit [facility] Mike Hicks human immunodeficiency virus (HIV) infection status (HRC) (Primary Dx); 401 Infectious MD Milly Encounter for long-term (current) use of medications Disease [address] [place], [place] [id number] Social History Tobacco Use Types Packs/Day Years Used Date Smoking Tobacco: Never Smokeless Tobacco: Never Alcohol Use Standard Drinks/Week Comments Yes 7 (1 standard drink = 0.6 oz pure alcoho l) Alcohol Habits Answer Date Recorded How often do you have a drink containing 4 or more times a w match-e-be-nash-she-wish band 02/01/2020 alcohol? How many drinks containing alcohol do you have Not asked on a typical day when you are drinking? How often do you have six or more drinks on one Not asked occasion? Comment: Not asked Sex Assigned at Date Recorded Not on file documented as of this encounter Last Filed Vital Signs Vital Sign Reading Time Taken Comments Blood Pressure 112/79 12/15/2018 11:22 AM TUBULAR PRODUCTS FABRICATOR Pulse 69 12/15/2018 11:22 AM TUBULAR PRODUCTS FABRICATOR Temperature 36.7 ??C (98.1 ??F) 12/15/2018 11:22 AM TUBULAR PRODUCTS FABRICATOR Respiratory Rate - - Oxygen Saturation - - Inhaled Oxygen Concentration - - Weight 60.1 kg (132 lb 6.4 oz) 12/15/2018 11:22 AM TUBULAR PRODUCTS FABRICATOR Height 170.2 cm (5' 7) 12/15/2018 11:22 AM TUBULAR PRODUCTS FABRICATOR Body Mass Index 20.74 12/15/2018 11:22 AM TUBULAR PRODUCTS FABRICATOR documented in this encounter Patient Instructions Patient InstructionsMike Hicks MD - 12/15/2018 11:30 AM CST Follow up in 6 months. No labs needed today. Thank you for coming in today. Mike Hicks MD 12/15/2018 LAR PRODUCTS FABRICATOR documented in this encounter Progress Notes Mike Hicks MD - 12/15/2018 11:30 AM CST This patient comes in for [...] denies any side effects to this treatment. Currently, she denies fevers, chills or night sweats. She has a good appetite. Her weight has been stable. No abdominal pain. She denies any problems with her mood. She has had a previous hysterectomy. Social history She lives in [place] with her . 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 Theyhave dogs and cats at home. She also has a horse at a different site. 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 They do not have any children. No tobacco use. She drinks a glass of wine every evening. No illegal drugs. No IV drug abuse. No recent travel. She previously has spenttime in [place], [place], [place] and [place]. She took a trip to the [place] a few years ago. 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 Patient Active Problem List Diagnosis ??? S/P hysterectomy ??? Screening for cervical cancer ??? Asthma (HRC) ??? Plantar fasciitis ??? Asymptomatic HIV infection (HRC) ??? Non-seasonal allergic rhinitis due to pollen Family history Her grandmother had amyotrophic lateral sclerosis. Her father is going through treatment for multiple myeloma. Her mother has depression. ALL: NKDA BP 112/79 Pulse 69 Temp 98.1 ??F (36.7 ??C) (Oral) Ht 5' 7 (1.702 m) Wt 132 lb 6.4 oz (60.1kg) BMI 20.74 kg/m?? Pt A, in NAD [...] immune Component Latest Ref Rng & Units 12/10/2018 T3 % 62.1 - 85.0 % 78.4 T3 Absolute 500-2,544 /UL 850 T4 % 31.6 - 65.7 % 44.5 T4 Absolute 337-1,687 /UL 483 T8 % 10.0 - 40.0 % 36.0 T8 Absolute 140 - 907 /UL 391 T4/T8 Ratio 0.8 - 3.7 1.2 HIV Interpretation Not Detected Not Detected Copies mL <30 copies/mL <30 Logcopies mL <1.47 log copies/mL <1.47 A/P 43-year-old female with HIV, detected on a life insurance exam, confirmed on testing through [facility] She is tolerating treatment with biktarvy well. She has obtained full viral suppression with a CD4 count of 483. No recent infections. She has had a hysterectomy so will not become . She will receive her influenza vaccination today and pneumovax. PLAN: Continue biktarvy She will receive her influenza vaccination today and pneumovax. Follow-up in 6 months Mike Hicks MD 12/15/2018 LAR PRODUCTS FABRICATOR documented in this encounter Plan of Treatment Not on filedocumented as of this encounter Visit Diagnoses Diagnosis Asymptomatic human immunodeficiency viru s (HIV) infection status (HRC) - Primary Asymptomatic human immunodeficiency viru s (HIV) infection status Encounter for long-term (current) use of medications Encounter for long-term (current) use of other medications documented in this encounter Care Teams Collections Specialist Relationship Specialty Start Date End Date Mary Kay Lr, DIP STAND LOADER, SCRAP PICKER PCP - General Nurse Practitioner 12/01/17 04/23/21 [address] [place] [address] documented as of this encounter
--- OUTSIDE RECORDS SUMMARY | 2021-11-06 20:42 | XMS_ITS | Encounter Summary ---
:1975 Author Organization [facility] Address [address] [place] [address] Care Team Providers Name Role Phone Mary Kay Lr APRN, BLADE GRINDER Primary Care Provider [phone] Reason for Visit Reason Comments Yeast Infection Encounter Details Date Type Department Care Team Description 08/09/2018 Telephone [facility] and Elis Toure RN Yeast Infection Gynecology Physician s [address] [place] [address] [place], [place] [address] [phone] Social History Tobacco Use Types Packs/Day Years Used Date Smoking Tobacco: Never Smokeless Tobacco: Never Alcohol Use Standard Drinks/Week Comments Yes 7 (1 standard drink = 0.6 oz pure alcoho l) Alcohol Habits Answer Date Recorded How often do you have a drink containing 4 or more times a w [place] 02/01/2020 alcohol? How many drinks containing alcohol do you have Not asked on a typical day when you are drinking? How often do you have six or more drinks on one Not asked occasion? Comment: Not asked Sex Assigned at Date Recorded Not on file documented as of this encounter Nursing Notes Elis Toure RN - 08/09/2018 12:13 PM CDT She is worried she might not be better before she goes out of town on Thursday. Will call Thursday ifshe is not better. Elis Toure RN 08/09/2018, 12:14 PM documented in this encounter Plan of Treatment Not on filedocumented as of this encounter Visit Diagnoses Not on filedocumented in this encounter Care Teams Pie Baker Relationship Specialty Start Date End Date Mary Kay Lr, RETAIL SALES ASSOCIATE BILINGUAL, BLADE GRINDER PCP - General Nurse Practitioner 12/01/17 04/23/21 [address] [place] [address] documented as of this encounter
--- OUTSIDE RECORDS SUMMARY | 2021-11-06 20:42 | XMS_ITS | Encounter Summary ---
:1975 Author Organization [facility] Address [address], [place] [address] Care Team Providers Name Role Phone Gayatri Lr APRN, CHRISTA Primary Care Provider [phone] Reason for Visit Reason Comments Refill estradiol Encounter Details Date Type Department Care Team Description 03/28/2019 Refill [facility] Obstetrics and Gayatri Lr APRN, Refill (estradiol) Gynecology [facility] [address] [facility] [address] [place], [place] [address] [place] [address] [phone] (Wo rk) Social History Tobacco Use Types Packs/Day Years Used Date Smoking Tobacco: Never Smokeless Tobacco: Never Alcohol Use Standard Drinks/Week Comments Yes 7 (1 standard drink = 0.6 oz pure alcoho l) Alcohol Habits Answer Date Recorded How often do you have a drink containing 4 or more times a w [place] 02/01/2020 alcohol? How many drinks containing alcohol do you have Not asked on a typical day when you are drinking? How often do you have six or more drinks on one Not asked occasion? Comment: Not asked Sex Assigned at Date Recorded Not on file documented as of this encounter Nursing Notes Liz Sarah LPN - 04/01/2019 4:09 PM CST This medication has never been prescribed by Gayatri Lr APRN, CNP and was previously incorrectly filled by RN under her name. Routing to HVAC INSTALLATION TECHNICIAN provider patient is scheduled with on 04/12/19. Gaby Rosas LPN 04/01/2019, 4:11 PM CER APPRENTICE Jodi Longoria - 04/01/2019 9:11 AM CST Medication Refill - Overdue Visit Called patient, was: Successful in reaching patient We recently received a refill request on one of your medications. Your clinician would like to see you for a(n): office visit Patient scheduled appointment on: 04/12/2019 with nitrocellulose maker provider Do you have enough medication to last until your appointment? No I will send this refill request to get you a temporary refill until your appointment. Jodi Longoria Please route to: Joshua specified in nurses documentation below Mary Erazo - 03/28/2019 11:18 AM CST Medication Refill - Overdue Visit Called patient, was: Unable to reach patient 1st call attempted. Left message to call back. Mary Beard CER APPRENTICE Molly Linares RN - 03/28/2019 11:13 AM CST Further Assistance Needed on Refill from Interior Decorator Patient is overdue for Office visit. Please call patient to schedule a Office Visit and document using .ELIEZER. After attempting to schedule patient: If appointment scheduled: Please route to: Primary Care: Refill acid filler Specialty Care: Refill acid filler/Care Team Pool If unable to schedule appointment: Please route to: Clinician/Care Team Pool Requested Prescriptions Pending Prescriptions Disp Refills ??? estradiol (VIVELLEDOT) 0.025 MG/24HR semiweekly patch [Pharmacy Med Name: Estradiol Transdermal Patch Twice Weekly 0.025 MG/24HR] Sig: APPLY 1 PATCH TO SKIN TWO TIMES A WEEK. Molly Linares RN 03/28/2019, 11:13 AM CER APPRENTICE Edwin Belle Surescripts Prov Query - 03/28/2019 7:02 AM CST estradiol (VIVELLEDOT) 0.025 MG/24HR semiweekly patch [Pharmacy Med Name: Estradiol Transdermal Patch Twice Weekly 0.025 MG/24HR] Miscellaneous - 12 Month Visit -> An office visit is overdue (performed 16 months ago, required every 12 months). Last qualifying visit: 12/16/2017 (in INTERNAL MEDICINE) Next scheduled visit: None Last ordered by GAYATRI LR (83 days ago) QTY: 24, Refills: 0, Sig: apply 1 patch to skin two times a week. (unchanged) Powered by [employer], Reference: [id number], 03/28/2019 7:02:29 AM SPLICER APPRENTICE, Pool: REFILL RN ([id number]) CER APPRENTICE documented in this encounter Plan of Treatment Not on filedocumented as of this encounter Visit Diagnoses Not on filedocumented in this encounter Care Teams Salad Maker Relationship Specialty Start Date End Date Gayatri Lr, SILVICULTURE FORESTER, MILITARY ADMINISTRATIVE TECHNICIAN PCP - General Nurse Practitioner 12/01/17 04/23/21 [address] [place] [address] documented as of this encounter
--- OUTSIDE RECORDS SUMMARY | 2021-11-06 20:42 | XMS_ITS | Encounter Summary ---
:1975 Author Organization [facility] Address [address] [place] [address] Care Team Providers Name Role Phone Mazinrehanajordan Mary Kay Pitt APRN, COMMISSIONED FIRE OFFICER Primary Care Provider [phone] Reason for Visit Reason Comments LAB RESULTS Encounter Details Date Type Department Care Team Description 08/11/2018 Telephone Careline Abdullahi Boss APRN, LAB RESULTS [address] CN[place], [place] [address] [phone] [place] [address] (Wo rk) Social History Tobacco Use Types Packs/Day Years Used Date Smoking Tobacco: Never Smokeless Tobacco: Never Alcohol Use Standard Drinks/Week Comments Yes 7 (1 standard drink = 0.6 oz pure alcoho l) Alcohol Habits Answer Date Recorded How often do you have a drink containing 4 or more times a w [place] 02/01/2020 alcohol? How many drinks containing alcohol do you have Not asked on a typical day when you are drinking? How often do you have six or more drinks on one Not asked occasion? Comment: Not asked Sex Assigned at Date Recorded Not on file documented as of this encounter Nursing Notes Janett Rojo RN - 08/12/2018 10:01 AM CDT 08/12/2018@10:01 AM Call placed to patient phone # [phone] and spoke with patient Cristiana. Verified patient identity using three identifiers: Yes Informed patient that testing done yesterday was positive for a gardnerella infection. Her provider Pallavi Boss CNM wanted to relay this information to her and that taking the medication prescribed for treatment needs to be taken according to directions. Patient states she received the result through the patient portal, so she picked up the Rx last evening and has already taken two doses. Patient has no further questions for the Careline at this time. Janett Rojo RN 08/12/2018, 10:07 AM Carlos Starr RN - 08/11/2018 7:26 PM CDT 7:26 PM Phone call to pt at [phone], reached [employer]. Left message to call the [facility] back for lab results and a message from her provider. Carlos Starr RN 08/11/2018, 7:29 PM Christina Graham RN - 08/11/2018 6:08 PM CDT ----- Message from Abdullahi Boss APRN, CNM sent at 08/11/2018 6:06 PM CDT ----- Please inform Cristiana of her + gardnerella vaginitis panel - she was given Rx for Flagyl at today's visit and should be encouraged to use. Abdullahi Boss APRN, CNM documented in this encounter Plan of Treatment Not on filedocumented as of this encounter Visit Diagnoses Not on filedocumented in this encounter Care Teams Grain Elevator Agent Relationship Specialty Start Date End Date Mary Kay Lr, MARQUES, COMMISSIONED FIRE OFFICER PCP - General Nurse Practitioner 12/01/17 04/23/21 [address] [place], [place] [id number] documented as of this encounter
--- OUTSIDE RECORDS SUMMARY | 2021-11-06 20:42 | XMS_ITS | Encounter Summary ---
:1975 Author Organization [facility] Address [address] [place] [address] Care Team Providers Name Role Phone Mary Kay Lr APRN, CLOTH EXAMINER Primary Care Provider [phone] Reason for Visit Reason Onset Date Comments COVID Questions 06/20/2019 Encounter Details Date Type Department Care Team Description 06/20/2019 Office Visit [facility] [address], Drive-Up Screening examination [address] [facility] for infectious disease [place], [place] (Primar y Dx) [address] Social History Tobacco Use Types Packs/Day Years Used Date Smoking Tobacco: Never Smokeless Tobacco: Never Alcohol Use Standard Drinks/Week Comments Yes 7 (1 standard drink = 0.6 oz pure alcoho l) Alcohol Habits Answer Date Recorded How often do you have a drink containing 4 or more times a w [place] 02/01/2020 alcohol? How many drinks containing alcohol do you have Not asked on a typical day when you are drinking? How often do you have six or more drinks on one Not asked occasion? Comment: Not asked Sex Assigned at Date Recorded Not on file documented as of this encounter Plan of Treatment Not on filedocumented as of this encounter Results Symptomatic - 2019 Novel Coronavirus (COVID-19) (06/20/2019 4:23 PM CDT) [facility] Method Time Signature SARS-CoV-2 NOT DETECTED NOT DETECTED 06/24/2019 [facility] 3:00 PM CDT DIAGNOSTICS - REASNOR Comment: A Not Detected (negative) test result fo r this test means that SARS- CoV-2 RNA was not prese nt in the specimen above the limit of detection. A negative result does not rule out the possibility of COVID-19 and should not be used as the sole basis for treatment or patient management decisions. ??If COVID-19 is still suspec niki, based on exposure history together with other cli nical findings, re-testing should be considered in consu ltation with public health authorities. Laboratory te st results should always be considered in the context of c linical observations and epidemiological data in making a final diagnosis and patient management decisio ns. ?? Please review the Fact Sheets and FDA authorized labeling available for health care provi ders and patients using the following websites: https://www.[employer].Birdi/home/Co vid-19/Patients/ QuestIVD/fact-sheet.html https://www.[employer].Birdi/home/Co vid-19/HCP/ NAAT/fact-sheet.html This test has been authorized by the FDA under an Emergency Use Authorization (EUA) for us e by authorized laboratories. Due to the current public health emergen cy, [facility] is receiving a high volume o f samples from a wide variety of swabs and media for CO VID-19 testing. In order to serve patients during this p ublic health crisis, samples from appropriate clinica l sources are being tested. Negative test results deri bruno from specimens received in non-commercially m anufactured viral collection and transport media, or in media and sample collection kits not yet authorize d by FDA for COVID-19 testing should be cautiously ev aluated and the patient potentially subjected to extra p recautions such as additional clinical monitoring, inclu ding collection of an additional specimen. Methodology: ??Nucleic Acid Amplificatio n Test (NAAT) includes PCR or TMA ?? Additional information about COVID-19 ca n be found at the [facility] website: www.[employer].Birdi/Covid19. [place], [facility] - [address], [address], DORIE LLAMAS MD Specimen Anatomical Collection Method Collection Time Receive d Time (Source) Location / / Volume Laterality Swab (Source Non-blood 06/20/2019 4:23 PM 0 6:28 Required) Collection / CDT PM CDT Unknown Israel Diggs MD LAB_1 Performing Organization Address City/State/ZIP Code Phon e Number [facility] [address] [facility]. [place], [place] [address] documented in this encounter Visit Diagnoses Diagnosis Screening examination for infectious dis ease - Primary Screening examination for unspecified in fectious disease documented in this encounter Additional Health Concerns Infection Onset Date Last Indicated Resolved Time R/O COVID19 06/20/2019 06/20/2019 06/24/2019 3:18 PM CDT documented as of this encounter Care Teams Voyage Management System Operator Relationship Specialty Start Date End Date Mary Kay Lr, LEAF STICKER, CLOTH EXAMINER PCP - General Nurse Practitioner 12/01/17 04/23/21 [address] [place], [place] [address] documented as of this encounter
--- OUTSIDE RECORDS SUMMARY | 2021-11-06 20:42 | XMS_ITS | Encounter Summary ---
:1975 Author Organization [facility] Address [address] [place] [address] Care Team Providers Name Role Phone Gayatri Lr APRN, INFORMATION TECHNOLOGY INSTRUCTOR Primary Care Provider [phone] Reason for Visit Reason Comments Refill estradiol (VIVELLEDOT) 0.025 MG/24HR semiweekly patch [Pharmacy Med Name: Estradiol Transdermal Patch Twice Weekly 0.025 MG/24HR] Encounter Details Date Type Department Care Team Description 03/26/2018 Refill [facility] Gayatri Lr, MARQUES , Refill (estradiol and Gynecology INFORMATION TECHNOLOGY INSTRUCTOR (VIVELLEDOT) 0.[address] MG/24HR semiweekly [place], [place] [address] [place] [address] patch [Pharmacy Med [phone] (Wo rk) Name: Estradiol Transderm al Patch Twice Weekly 0.025 MG /24HR]) Social History Tobacco Use Types Packs/Day Years Used Date Smoking Tobacco: Never Smokeless Tobacco: Never Alcohol Use Standard Drinks/Week Comments Yes 7 (1 standard drink = 0.6 oz pure alcoho l) Alcohol Habits Answer Date Recorded How often do you have a drink containing 4 or more times a w [place] 02/01/2020 alcohol? How many drinks containing alcohol do you have Not asked on a typical day when you are drinking? How often do you have six or more drinks on one Not asked occasion? Comment: Not asked Sex Assigned at Date Recorded Not on file documented as of this encounter Nursing Notes Molly Linares RN - 03/26/2018 12:10 PM CST per standing order Molly Linares RN URCE FORESTER Interface, Out [email or web address] Prov Query - 03/26/2018 7:03 AM CST estradiol (VIVELLEDOT) 0.025 MG/24HR semiweekly patch [Pharmacy Med Name: Estradiol Transdermal Patch Twice Weekly 0.025 MG/24HR] Hormone Replacement Therapy -> Refill x 9 months, qty: 1, refills: 2 (until due for an office visit) Last qualifying visit: 12/16/2017 (in INTERNAL MEDICINE) Next scheduled visit: None Last ordered by GAYATRI LR (70 days ago) QTY: 8, Refills: 1, Sig: apply 1 patch to skin two times a week. (unchanged) PAP: Taken on 12/16/2017 Powered by [email or web address], Reference: [id number], 03/26/2018 7:03:04 AM Joshua MAO: LOTTIE REFILL RN ([id number]) URCE FORESTER documented in this encounter Plan of Treatment Not on filedocumented as of this encounter Visit Diagnoses Not on filedocumented in this encounter Care Teams Brake Drum Molder Relationship Specialty Start Date End Date Gayatri Lr, FOREIGN CLERK, INFORMATION TECHNOLOGY INSTRUCTOR PCP - General Nurse Practitioner 12/01/17 04/23/21 [address] [place] [address] documented as of this encounter
--- OUTSIDE RECORDS SUMMARY | 2021-11-06 20:42 | XMS_ITS | Encounter Summary ---
:1975 Author Organization [facility] Address [address] [place] [address] Care Team Providers Name Role Phone Kelli Lewis MD Primary Care Provider [phone] Encounter Details Date Type Department Care Team Description 05/07/2018 Refill [facility] 401 Chante Hicks MD Infectious Disease [address] [place] [address] [place] [address] [phone] Social History Tobacco Use Types Packs/Day Years [...] this encounter Visit Diagnoses Diagnosis Encounter for long-term (current) use of medications - Primary Encounter for long-term (current) use of other medications documented in this encounter Additional Health Concerns Infection Onset Date Last Indicated Resolved Time R/O COVID19 06/20/2019 06/20/2019 06/24/2019 3:18 PM CDT documented as of this encounter Care Teams Package Clerk Relationship Specialty Start Date End Date Kelli Lewis MD PCP - General Family Practice 04/24/21 [address], [place] [address] documented as of this encounter
--- OUTSIDE RECORDS SUMMARY | 2021-11-06 20:42 | XMS_ITS | Encounter Summary ---
:1975 Author Organization [facility] Address [address] [place] [address] Care Team Providers Name Role Phone Mary Kay Lr APRN, EQUIP TECH Primary Care Provider [phone] Reason for Visit Reason Comments APPOINTMENT REQUEST Encounter Details Date Type Department Care Team Description 03/25/2018 Telephone [facility], Physician APPOINTMENT REQUEST Gynecology Physician s [address] [place], [place] [address] [phone] Social History Tobacco Use Types Packs/Day Years Used Date Smoking Tobacco: Never Smokeless Tobacco: Never Alcohol Use Standard Drinks/Week Comments Yes 7 (1 standard drink = 0.6 oz pure alcoho l) Alcohol Habits Answer Date Recorded How often do you have a drink containing 4 or more times a w [place] 02/01/2020 alcohol? How many drinks containing alcohol do you have Not asked on a typical day when you are drinking? How often do you have six or more drinks on one Not asked occasion? Comment: Not asked Sex Assigned at Date Recorded Not on file documented as of this encounter Nursing Notes Elis Toure RN - 03/25/2018 4:21 PM CST Scheduled. Elis Toure RN 03/25/2018, 4:23 PM UTER INFORMATION SYSTEMS INSTRUCTOR Roma Waters - 03/25/2018 2:28 PM CST Appointments - Same Day / Future Patient would like appointment with: Any Provider Encounter Clinician: Physician William, Patient requesting appointment for: REOCCURRING YEAST INFECTIONS Wants/Needs to be seen within: 3 day(s) Is it okay to leave detailed message on your voicemail? Yes Roma Waters UTER INFORMATION SYSTEMS INSTRUCTOR documented in this encounter Plan of Treatment Not on filedocumented as of this encounter Visit Diagnoses Not on filedocumented in this encounter Care Teams Service Dismantler Relationship Specialty Start Date End Date Mary Kay Lr, GENERAL INTERNAL MEDICINE DOCTOR, EQUIP TECH PCP - General Nurse Practitioner 12/01/17 04/23/21 [address] [place] [address] documented as of this encounter
--- OUTSIDE RECORDS SUMMARY | 2021-11-06 20:42 | XMS_ITS | Encounter Summary ---
:1975 Author Organization [facility] Address [address] [place] [address] Care Team Providers Name Role Phone Gayatri Lr APRN, BAND TIER Primary Care Provider [phone] Reason for Visit Reason Comments Refill estradiol (VIVELLEDOT) 0.025 MG/24HR semiweekly patch [Pharmacy Med Name: Estradiol Transdermal Patch Twice Weekly 0.025 MG/24HR] Encounter Details Date Type Department Care Team Description 01/04/2019 Refill [place] [facility] Gayatri Lr, MARQUES , Refill (estradiol and Gynecology BAND TIER (VIVELLEDOT) 0.[address] MG/24HR semiweekly [place], [place] [address] [place] [address] patch [Pharmacy Med [phone] (Wo rk) Name: Estradiol Transderm al Patch Twice Weekly 0.025 MG /24HR]) Social History Tobacco Use Types Packs/Day Years Used Date Smoking Tobacco: Never Smokeless Tobacco: Never Alcohol Use Standard Drinks/Week Comments Yes 7 (1 standard drink = 0.6 oz pure alcoho l) Alcohol Habits Answer Date Recorded How often do you have a drink containing 4 or more times a w [place] 02/01/2020 alcohol? How many drinks containing alcohol do you have Not asked on a typical day when you are drinking? How often do you have six or more drinks on one Not asked occasion? Comment: Not asked Sex Assigned at Date Recorded Not on file documented as of this encounter Nursing Notes Yohana Morris RN - 01/04/2019 5:15 PM CST Refilled per standing order. Yohana Morris, GARETH KEEPER Interface, Out [employer] Query - 01/04/2019 7:04 AM CST estradiol (VIVELLEDOT) 0.025 MG/24HR semiweekly patch [Pharmacy Med Name: Estradiol Transdermal Patch Twice Weekly 0.025 MG/24HR] Miscellaneous - 12 Month Visit -> Refill x 3 months (courtesy refill. overdue for an office visit) Last qualifying visit: 12/16/2017 (in INTERNAL MEDICINE) Next scheduled visit: None Last ordered by GAYATRI LR (284 days ago) QTY: 24, Refills: 2, Sig: apply 1 patch toskin two times a week. (unchanged) Powered by [employer], Reference: [id number], 01/04/2019 7:04:23 AM GATEKEEPER, Pool: LOTTIE REFILL RN ([id number]) KEEPER documented in this encounter Plan of Treatment Not on filedocumented as of this encounter Visit Diagnoses Not on filedocumented in this encounter Care Teams Cabinet Professional Relationship Specialty Start Date End Date Gayatri Lr, HIGH SCHOOL MUSIC INSTRUCTOR, BAND TIER PCP - General Nurse Practitioner 12/01/17 04/23/21 [address] [place] [address] documented as of this encounter
--- OUTSIDE RECORDS SUMMARY | 2021-11-06 20:42 | XMS_ITS | Encounter Summary ---
:1975 Author Organization [facility] Address [address] [place] [address] Care Team Providers Name Role Phone Mary Kay Lr APRN, VICE PROVOST Primary Care Provider [phone] Reason for Visit Reason Comments Future Appointments Encounter Details Date Type Department Care Team Description 08/05/2018 Telephone [place] [facility], Physician Future Appointments Gynecology Physician s [address] [place], [place] [address] [phone] Social History Tobacco Use Types Packs/Day Years [...] encounter Nursing Notes Elis Toure RN - 08/06/2018 10:31 AM CDT She has been notified of rx. Will call as needed. Elis Toure RN 08/06/2018, 10:32 AM Roxy Diane MD - 08/06/2018 8:38 AM CDT Please let patient know, Rx sent for Diflucan. I prescribed 3 pills with 1 refill. If bad/recurrent infection, can take 3 doses Q 72 hours. If just mild symptoms/infection, can just take single dose. Roxy Diane MD 08/06/2018 8:39 AM Elis Toure, GARETH - 08/05/2018 3:24 PM CDT She is calling to see if she can get an Rx for a few tabs of Diflucan. She gets these yeast infections frequently and it is troubling for her when she is traveling for work, has to share a room with someone and dealing with carrying on a tube of monistat or terconazole and security pulls it out, etc. She knows now that she needs to start treatment as soon as she starts to feel a little itching. Otherwise it will snowball quickly. She is getting itchy now, would like Rx. Are you willing to write and give her additional refills? Elis Toure RN 08/05/2018, 3:50 PM Elis Toure RN - 08/05/2018 2:06 PM CDT She will call us back. Elis Toure RN 08/05/2018, 2:06 PM Shakeel Shaw - 08/05/2018 1:29 PM CDT Symptoms [Appt Center: If this call is after 3 p.m., communicate to patient: If we are not able to get back to you by the end of the day and your symptoms worsen, please contact the Careline at [phone] OR at .] Describe your symptoms (if pain, include location): ITCHINESS When did they start? 3 DAYS AGO What have you tried at home (please specify medication name, if any)? NO Have you recently been seen for this? DID NOT WANT TO ANSWER THIS QUESTION, SAYS DEPENDS ON WHAT I MEAN BY RECENT If a prescription is needed, would you like it filled at a [facility] pharmacy? No: [facility] [Appt Center: Please add the selected pharmacy to Meds & Orders] Is it okay to leave a detailed message on your voicemail? Yes Is there anything else I can help you with today? Shakeel Shaw documented in this encounter Plan of Treatment Not on filedocumented as of this encounter Visit Diagnoses Not on filedocumented in this encounter Care Teams Hull Sorter Relationship Specialty Start Date End Date Mary Kay Lr, MOTEL KEEPER, VICE PROVOST PCP - General Nurse Practitioner 12/01/17 04/23/21 [address] [place], [place] [address] documented as of this encounter
--- OUTSIDE RECORDS SUMMARY | 2021-11-06 20:42 | XMS_ITS | Encounter Summary ---
:1975 Author Organization [facility] Address [address] [place] [address] Care Team Providers Name Role Phone Mary Kay Lr APRN, CHRISTA Primary Care Provider [phone] Reason for Visit Reason Comments VAGINITIS Encounter Details Date Type Department Care Team Description 08/11/2018 Office Visit [facility] Abdullahi Boss, Vaginal itching and Gynecology EILEEN MOHAN (Primary Dx) Physicians [address] [place], [place] [address] [phone] Social History Tobacco Use Types Packs/Day Years Used Date Smoking Tobacco: Never Smokeless Tobacco: Never Alcohol Use Standard Drinks/Week Comments Yes 7 (1 standard drink = 0.6 oz pure alcoho l) Alcohol Habits Answer Date Recorded How often do you have a drink containing 4 or more times a w [place] 02/01/2020 alcohol? How many drinks containing alcohol do you have Not asked on a typical day when you are drinking? How often do you have six or more drinks on one Not asked occasion? Comment: Not asked Sex Assigned at Date Recorded Not on file documented as of this encounter Last Filed Vital Signs Vital Sign Reading Time Taken Comments Blood Pressure 100/62 08/11/2018 2:03 PM CDT Pulse 68 08/11/2018 2:03 PM CDT Temperature - - Respiratory Rate - - Oxygen Saturation - - Inhaled Oxygen Concentration - - Weight - - Height - - Body Mass Index - - documented in this encounter Progress Notes Abdullahi Boss APRNEILEEN - 08/11/2018 2:00 PM CDT S: Cristiana is in today with concerns re: possible continued vaginitis. She has been using Diflucan foryeast and is still having some vaginal itching. She has used two doses. She is going out of town andwould like to have a vaginitis screen prior leaving to see if she still has yeast or if she may haveBV. 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 Due to this, I did give her option of self- collection of vaginal swab (which she preferred). O: BP 100/62 Pulse 68 Patient collected her own vaginal swab A: Concerns re: possible continued vaginitis P: Vaginitis panel sent Since Cristiana is going out of town, I did give her Rx's for Diflucan and Flagyl to have on hand. Willinform her of vaginitis panel findings. Abdullahi Boss APRN, CNM Abdullahi Boss APRN, CNM - 08/11/2018 2:00 PM CDT Addendum: Message sent to Careline to let patient know of her + vaginitis panel findings of today. Abdullahi Boss APRN, CNM 08/11 at 1806 documented in this encounter Plan of Treatment Not on filedocumented as of this encounter Procedures Procedure Name Priority Date/Time Associated Diagnosis Comme nts VAGINITIS PANEL Routine 08/11/2018 2:33 PM Vaginal itching Res ults for this CDT procedure are i n the results section. documented in this encounter Results (ABNORMAL) Vaginitis Panel (08/11/2018 2:33 PM CDT) [facility] Method Time Signature Gard[place]rella Positive (A) Negative 08/11/2018 [facility] vaginalis 4:53 PM CDT LAB Lexi species Negative Negative 08/11/2018 [facility] 4:53 PM CDT LAB Trichomonas Negative Negative 08/11/2018 [facility] vaginalis 4:53 PM CDT LAB Specimen Anatomical Collection Method Collection Time Receive d Time (Source) Location / / Volume Laterality Swab (Source SPECIMEN FROM Non-blood 08/11/2018 2:33 PM 08/12/19 19 4:05 Required) VAGINA / Unknown Collection / CDT PM CDT Unknown Abdullahi Boss APRN, EILEEN LAB_1 Performing Organization Address City/State/ZIP Code Phon e Number [facility] [address] [place] [address] documented in this encounter Visit Diagnoses Diagnosis Vaginal itching - Primary Pruritus of genital organs documented in this encounter Care Teams Service Observer Relationship Specialty Start Date End Date Mary Kay Lr, MARQUES, LITHOGRAPHING MACHINE OPERATOR PCP - General Nurse Practitioner 12/01/17 04/23/21 [address] [place] [address] documented as of this encounter
--- OUTSIDE RECORDS SUMMARY | 2021-11-06 20:42 | XMS_ITS | Encounter Summary ---
:1975 Author Organization [facility] Address [address] [place] [address] Care Team Providers Name Role Phone Kelli Lewis MD Primary Care Provider [phone] Encounter Details Date Type Department Care Team Description 02/11/2018 Correspondence External to External, Provid er NOTICE OF [place] [address] Social History Tobacco Use Types Packs/Day Years Used Date Smoking Tobacco: Never Smokeless Tobacco: Never Alcohol Use Standard Drinks/Week Comments Yes 7 (1 standard drink = 0.6 oz pure alcoho l) Alcohol Habits Answer Date Recorded How often do you have a drink containing 4 or more times a w [place] 02/01/2020 alcohol? How many drinks containing alcohol [...] Diagnoses Not on filedocumented in this encounter Additional Health Concerns Infection Onset Date Last Indicated Resolved Time R/O COVID19 06/20/2019 06/20/2019 06/24/2019 3:18 PM CDT documented as of this encounter Care Teams Die Cast Operator Relationship Specialty Start Date End Date Kelli Lewis MD PCP - General Family Practice 04/24/21 [address] [place] [address] documented as of this encounter
--- OUTSIDE RECORDS SUMMARY | 2021-11-06 20:42 | XMS_ITS | Encounter Summary ---
:1975 Author Organization [facility] Address [address], [place] [address] Care Team Providers Name Role Phone Mary Kay Lr APRN, CNP Primary Care Provider [phone] Reason for Visit Procedure/Equipment (Routine) - Incomplete Specialty Diagnoses / Procedures Referred By Contact Refer red To Contact Diagnoses Routine general medical examination at [facility] Mary Kay Lr, MARQUES, CHRISTA Procedures MM Mammogram Screening Bilat W CAD [address] [place], [place] [address] Referral ID Status Reason Start Date Expiration Date Visits V isits Requested Authorized [id number] Incomplete 12/16/2017 03/17/2019 1 1 Encounter Details Date Type Department Care Team Description 03/01/2018 [facility] Routine ge neral Procedure [place] ROLLING UP MACHINE OPERATOR, CHRISTA medical examination [facility] [address] [facility] [place], [place] [address] [place], [place] [phone] Social History Tobacco Use Types Packs/Day Years Used Date Smoking Tobacco: Never Smokeless Tobacco: Never Alcohol Use Standard Drinks/Week Comments Yes 7 (1 standard drink = 0.6 oz pure alcoho l) Alcohol Habits Answer Date Recorded How often do you have a drink containing 4 or more times a w [place] 02/01/2020 alcohol? How many drinks containing alcohol [...] Associated Diagnosis Comme nts MM MAMMOGRAM Routine 03/01/2018 3:37 PM Routine general Result s for this SCREENING BILAT W TRAY SETTER medical examination pro cedure are in CAD at [facility] the results facility section. documented in this encounter Results MM Mammogram Screening Bilat W CAD (03/01/2018 3:37 PM TRAY SETTER) Anatomical Region Laterality Modality Breast Bilateral Mammography Specimen (Source) Anatomical Location Collection Method / Collectio n Time Received Time / Laterality Volume Impressions 03/02/2018 2:23 PM TRAY SETTER : ACR BI-RADS Category 1: Negative RECOMMENDATION: Follow Up Imaging in 12 months - Bilateral The results and recommendations of this examination will be communicated to the patient. Narrative 03/02/2018 2:23 PM TRAY SETTER MM MAMMOGRAM SCREENING BILAT W CAD performed on 03/01/18 Compared to: 06/26/2016 MM Mammogram Kaci g Bilat W [place] FINDINGS: Bilateral screening mammogram was performed with the assistance of Computer-Aided Detection. The breasts are extremely dense, which lowers the sensitivity of mammography. There is no radiographic evidence of mal ignancy. ?? Mary Kay Lr APRN, CNP RAD LIONEL documented in this encounter Visit Diagnoses Diagnosis Routine general medical examination at [facility] Routine general medical examination at a [facility] care facility documented in this encounter Care Teams Spice Fumigator Relationship Specialty Start Date End Date Mary Kay Lr APRN, TIRE FABRIC INSPECTOR PCP - General Nurse Practitioner 12/01/17 04/23/21 [address] [place] [address] documented as of this encounter
--- OUTSIDE RECORDS SUMMARY | 2021-11-06 20:42 | XMS_ITS | Encounter Summary ---
:1975 Author Organization [facility] Address [address] [place] [address] Care Team Providers Name Role Phone Mary Kay Lr APRN, EMS DIRECTOR Primary Care Provider [phone] Encounter Details Date Type Department Care Team Description 06/20/2019 Notes/Orders [facility] Francisca Gamez Scr eening examination Up RN for infectious disease [address] [address] [phone] Social History Tobacco Use Types Packs/Day Years Used Date Smoking Tobacco: Never Smokeless Tobacco: Never Alcohol Use Standard Drinks/Week Comments Yes 7 (1 standard drink = 0.6 oz pure alcoho l) Alcohol Habits Answer Date Recorded How often do you have a drink containing 4 or more times a w [place] 02/01/2020 alcohol? How many drinks containing alcohol [...] Associated Diagnosis Comme nts 2019 NOVEL Routine 06/20/2019 4:23 PM Screening Results f or this CORONAVIRUS CDT examination for procedure ar e in infectious disease the resul ts section. documented in this encounter Results Symptomatic - 2019 Novel Coronavirus (COVID-19) (06/20/2019 4:23 PM CDT) [facility] Method Time Signature SARS-CoV-2 NOT DETECTED NOT DETECTED 06/24/2019 [facility] 3:00 PM [facility] Comment: A Not Detected (negative) test result [...] ders and patients using the following websites: https://www.[employer].OKCoin/home/Co vid-19/Patients/ Quest[facility]D/fact-sheet.html https://www.[employer]Coin/home/Co vid-19/HCP/ NAAT/fact-sheet.html This test has been authorized by the FDA under an Emergency Use Authorization (EUA) for us e by authorized laboratories. Due to the current public health emergen cy, [facility] is receiving a high volume o f [...] COVID-19 ca n be found at the [facility] website: www.Doctolib.OKCoin/Covid19. [place], Proficiency [facility], [address] [place] [address], [phone], DORIE LLAMAS MD Specimen Anatomical Collection Method Collection Time Receive d Time (Source) Location / / Volume Laterality Swab (Source Non-blood 06/20/2019 4:23 PM 0 6:28 Required) Collection / CDT PM CDT Unknown Israel Diggs MD LAB_1 Performing Organization Address City/State/ZIP Code Phon e Number [facility] [address] [facility] [place], [place] [address] documented in this encounter Visit Diagnoses Diagnosis Screening examination for infectious dis ease Screening examination for unspecified in fectious disease documented in this encounter Additional Health Concerns Infection Onset Date Last Indicated Resolved Time R/O COVID19 06/20/2019 06/20/2019 06/24/2019 3:18 PM CDT documented as of this encounter Care Teams Controller Mechanic Relationship Specialty Start Date End Date Mary Kay Lr, PIECE PRESSER, EMS DIRECTOR PCP - General Nurse Practitioner 12/01/17 04/23/21 [address] [place] [address] documented as of this encounter
--- OUTSIDE RECORDS SUMMARY | 2021-11-06 20:42 | XMS_ITS | Encounter Summary ---
:1975 [facility] Organization [facility] Address [address], [place] [address] Care Team Providers Name Role Phone Mary Kay Lr APRN, AIRPORT CLERK Primary Care Provider [phone] Reason for Visit Reason Onset Date Comments COVID Questions 07/25/2019 Encounter Details Date Type Department Care Team Description 07/25/[address] [facility] [address] Up [id number], Drive-Up Encounter for screening [address] for other viral [place], [place] disease s (Primary Dx) [address] Social History Tobacco Use Types Packs/Day Years Used Date Smoking Tobacco: Never Smokeless Tobacco: Never Alcohol Use Standard Drinks/Week Comments Yes 7 (1 standard drink = 0.6 oz pure alcoho l) Alcohol Habits Answer Date Recorded How often do you have a drink containing 4 or more times a w [place] 02/01/2020 alcohol? How many drinks containing [...] Date/Time Associated Comments Diagnosis 2019 NOVEL Routine 07/25/2019 2:52 PM Encounter for Results for this CORONAVIRUS CDT screening for other procedur e are in viral diseases the results section. documented in this encounter Results Asymptomatic - 2019 Novel Coronavirus (COVID-19) (07/25/2019 2:52 PM CDT) [facility] Method Time Signature COVID-19 Not Not 07/27/2019 [facility] Interpretation Detected Detected 8:10 AM CENTRAL LAB CDT Specimen Anatomical Collection Method Collection Time Receive d Time (Source) Location / / Volume Laterality Swab (Source Non-blood 07/25/2019 2:52 PM 0 6:15 Required) Collection / CDT PM CDT Unknown Narrative [facility] CENTRAL LAB - 07/27/2019 8:10 AM CDT Testing has been performed by Licensed Staff Mft Mediated Amplification. This test has been authorized by the FDA under an Emergency Use Authorization (EUA) for use by authorized laboratories. Mary Kay Lr APRN, CNP LAB_1 Performing Organization Address City/State/ZIP Code Phon e Number [facility] [address] [address] documented in this encounter Visit Diagnoses Diagnosis Encounter for screening for other viral diseases - Primary documented in this encounter Care Teams Second Baker Relationship Specialty Start Date End Date Mary Kay Lr APRN, CNP PCP - General Nurse Practitioner 12/01/17 04/23/21 [address] [place] [address] documented as of this encounter
--- OUTSIDE RECORDS SUMMARY | 2021-11-06 20:42 | XMS_ITS | Encounter Summary ---
:1975 Author Organization [facility] Address [address] [place] [address] Care Team Providers Name Role Phone Mary Kay Lr APRN, DIRECTOR OF CASEWORK Primary Care Provider [phone] Reason for Visit Reason Comments Vaginal Symptoms Encounter Details Date Type Department Care Team Description 04/11/2019 Telephone [facility] Saray Barrera MD Vaginal Symptoms and Gynecology Physi cia [address] [facility] [address] [facility] [place] [address] [place], [place] [address] [phone] Social History Tobacco Use Types Packs/Day Years Used Date Smoking Tobacco: Never Smokeless Tobacco: Never Alcohol Use Standard Drinks/Week Comments Yes 7 (1 standard drink = 0.6 oz pure alcoho l) Alcohol Habits Answer Date Recorded How often do you have a drink containing 4 or more times a w [place] 02/01/2020 alcohol? How many drinks containing alcohol do you have Not asked on a typical day when you are drinking? How often do you have six or more drinks on one Not asked occasion? Comment: Not asked Sex Assigned at Date Recorded Not on file documented as of this encounter Nursing Notes Cherelle Lyles RN - 04/15/2019 9:12 AM CST Reached pt to discuss instructions and she expresses understanding. She states she will also continue her twice weekly metrogel for frequent BV Cherelle Lyles RN 04/15/2019, 9:13 AM Cherelle Deleon RN - 04/13/2019 3:49 PM CST Left message for pt to return call Cherelle Lyles RN 04/13/2019, 3:49 PM Saray Chan MD - 04/13/2019 3:24 PM CST Please let Cristiana know that prescription sent to [facility] pharmacy for dilfucan PO weekly. She currently has existing tabs and prescribed 10 more tabs. She is instructed to take weekly for a total of 16 doses. Thanks, Saray Cherelle Deleon RN - 04/11/2019 9:30 AM CST Vaginitis Panel Order: [id number] Status: Final result Visible to patient: Yes (MyChart) Dx: Vulvar itching; Vaginal itching Component Ref Range & Units 3d ago Gardnerella vaginalis Negative Negative Lexi species Negative PositiveAbnormal Trichomonas vaginalis Negative Negative Resulting Agency [facility] Specimen Collected: 04/08/19 ??5:38 PM Last Resulted: 04/11/19 ??8:59 AM Plan from office visit on 04/08: For recurrent BV, we can plan to treat with 2 weeks of metronidazole and then twice weekly metrogelfor 4 months. For Yeast, we can treat with one dose of diflucan every 3 days for two doses and then once a week for 4 months. Saray Barrera MD 04/08/2019, 5:43 PM I spoke with pt, she did take one tab of the diflucan and will take 2nd tab today per instructions. She has 9 tabs of diflucan left from prior prescription. Also has 7 -day course of oral metronidazole as well as [address] Barrera to advise on plan in light of results as well as prescriptions needed. Cherelle Lyles RN 04/11/2019, 9:33 AM YNAECOLOGIST documented in this encounter Plan of Treatment Not on filedocumented as of this encounter Visit Diagnoses Not on filedocumented in this encounter Care Teams Telecommunications Switch Technician Relationship Specialty Start Date End Date Mary Kay Lr APRN, DIRECTOR OF CASEWORK PCP - General Nurse Practitioner 12/01/17 04/23/21 [address] [place] [address] documented as of this encounter
--- OUTSIDE RECORDS SUMMARY | 2021-11-06 20:42 | XMS_ITS | Encounter Summary ---
:1975 Author Organization [facility] Address [address] [place] [address] Care Team Providers Name Role Phone Mary Kay Lr APRN, SURGICAL SUPERVISOR Primary Care Provider [phone] Reason for Visit Reason Comments VAGINITIS chronic Encounter Details Date Type Department Care Team Description 12/03/2018 Office Visit [place] Anabell Parsons, Bacterial vaginosis Obstetrics and MD (Primary Dx) Gynecology Physician s [address] [facility] [address] [facility] [address] [place] [place] [address] [place], [place] [phone] (Wo rk) Social History Tobacco Use Types Packs/Day Years Used Date Smoking Tobacco: Never Smokeless Tobacco: Never Alcohol Use Standard Drinks/Week Comments Yes 7 (1 standard drink = 0.6 oz pure alcoho l) Alcohol Habits Answer Date Recorded How often do you have a drink containing 4 or more times a w [place] 02/01/2020 alcohol? How many drinks containing alcohol do you have Not asked on a typical day when you are drinking? How often do you have six or more drinks on one Not asked occasion? Comment: Not asked Sex Assigned at Date Recorded Not on file documented as of this encounter Last Filed Vital Signs Vital Sign Reading Time Taken Comments Blood Pressure 118/78 12/03/2018 11:20 AM CDT Pulse 75 12/03/2018 11:20 AM CDT Temperature - - Respiratory Rate - - Oxygen Saturation - - Inhaled Oxygen Concentration - - Weight - - Height - - Body Mass Index - - documented in this encounter Patient Instructions Patient InstructionsAnabell Parsons MD - 12/03/2018 11:20 AM CDT Bacterial Vaginosis Bacterial vaginosis (BV) is the most common cause of vaginal discharge in women. It can cause bothersome symptoms, and also increase risk of acquiring serious sexually transmitted infections, such as HIV. It may be difficult to know if discharge is caused by BV or other common vaginal infections, thusa visit with a healthcare provider is recommended in most cases. Bacterial Vaginosis Causes BV occurs when there is a change in the number and types of bacteria in the vagina. Risk factors for BV include multiple or new sexual partners, douching, and cigarette smoking. BV is now thought to be a sexually transmitted infection, although most recurrences are not sexually related. Bacterial Vaginosis Signs and Symptoms Approximately 50 to 75 percent of women with BV have no symptoms. Those with symptoms often note an unpleasant, fishy smelling vaginal discharge that is more noticeable after sexual intercourse. Vaginal discharge that is off-white and thin may also be present. Some patients have itching. Pain during urination or sex, redness, and swelling are not typical. If you have concerns about excessive or foul-smelling vaginal discharge, abnormal bleeding, or vulvar irritation, see a healthcare provider. Self- treatment with [id number] products (yeast creams,deoderants) is not recommended without a definite diagnosis. Bacterial Vaginosis Diagnosis The diagnosis of BV is based upon a physical examination and laboratory testing. The physical examination usually includes a pelvic examination, which allows the healthcare provider to observe and testvaginal secretions. It can be difficult to know, without an examination and testing, if vaginal discharge is caused by BV or another vaginal infection. You should insist that your provider confirm the diagnosis with appropriate tests. Bacterial Vaginosis Complications BV itself is not harmful, although it has been associated with some health problems. ?? women with BV are at higher risk of delivery ?? Untreated BV in a woman who undergoes hysterectomy or can lead to infection of the surgical site ?? BV increases the risk of becoming infected with and spreading HIV ?? BV increases the risk that a woman will become infected with genital herpes, gonorrhea, or chlamydia Bacterial Vaginosis Treatment Treatment of BV is usually recommended. There are two prescription medications used for the treatment of BV: Metronidazole and Clindamycin. Both medications can be taken in pill form by mouth, or with a gel or cream that is inserted inside the vagina. Oral medication may be more convenient, but causesmore side effects. If symptoms improve after treatment, a follow up visit is not necessary. Metronidazole - Metronidazole vaginal gel is one of the most effective treatments; it is applied inside the vagina at bedtime for five days. Metronidazole can also be taken in pill form, 500 mg twice daily for seven days. The choice of pill versus vaginal gel depends on the women's preference. In general, there are fewer side effects with the vaginal treatment. Side effects of oral Metronidazole include a metallic taste, nausea, and a temporary lowered blood count. You should not drink alcohol while taking metronidazole pills due to the risk of a serious interaction, which can cause flushing, nausea, thirst, palpitations, chest pain, vertigo, and low blood pr essure. The vaginal gel does not cause these side effects. Clindamycin - Clindamycin is a cream that is inserted into the vagina at bedtime for seven days. Clindamycin cream should not be used with latex condoms due to the risk of condom breakage. Clindamycin can also be taken by mouth, 300 mg twice daily for seven days. Sexual Partners - Treating the sexual partner does not improve the women's symptoms or decrease the risk of the infection coming back, hence treatment of male sexual partners is not recommended. Relapse and Recurrent Infection - Approximately 30 percent of women who initially improve after treatment have a recurrence of BV symptoms within three months, and more than 50 percent have a recurrence of symptoms within 12 months. Relapse can be treated with a prolonged course of oral or vaginal Metronidazole or Clindamycin for seven days. If you've had more than three episodes of BV in the past 12 months, you may benefit from longer treatment. Bacterial Vaginosis Prevention The best way to prevent BV is not known. However, a few basic recommendations can be made. ?? Do not douche. Douching is the use of a solution to rinse the inside of the vagina. Some women douche to feel clean, although there is no proven benefit of douching. The vagina is normally able tomaintain a healthy balance of bacteria; douching can upset this balance. ?? Limit the number of sexual partners. Women with multiple sexual partners are at higher risk of developing bacterial vaginosis and sexually transmitted infections. ?? Finish the entire course of treatment for BV, even if the symptoms resolve after a few doses. ?? Use of control pills may be helpful; however, use of condoms is advised for male partners of women with recurrent BV. documented in this encounter Progress Notes Anabell Parsons MD - 12/03/2018 11:20 AM CDT Cristiana Castillo is a 43 y.o. female P0 who presents to clinic today for recurrent symptoms of a vaginal infection. She has vaginal itching. No significant change in discharge and no noticeable odor. No new sexual partners. She has been treated 3 times in the past 9 months for BV and several times for yeast as well. She is frustrated with the recurrent symptoms and has had difficulty determining each time if symptoms are BV or yeast. She wears cotton underwear and does not take baths with the exception of recently, she has tried both vinegar and baking soda baths to relieve her symptoms with some relief. Exam: Vitals: 12/03/18 1120 BP: 118/78 Pulse: 75 Gen - pleasant and well appearing Abd - soft, NT Pelvic - NEFG, on speculum exam, there is thin, white vaginal discharge c/w likely BV Assessment: Recurrent bacterial vaginosis Plan: 1) Flagyl 500mg PO BID x 7 day 2) Metrogel twice weekly to prevent recurrence 3) Diflucan 150mg PO x 1 after completing course of Flagyl to prevent yeast 4) Vaginitis panel pending documented in this encounter Plan of Treatment Not on filedocumented as of this encounter Procedures Procedure Name Priority Date/Time Associated Diagnosis Comme nts VAGINITIS PANEL Routine 12/03/2018 12:06 PM Bacterial vaginosi s Results for this CDT procedure are i n the results section. documented in this encounter Results (ABNORMAL) Vaginitis Panel (12/03/2018 12:06 PM CDT) [facility] Method Time Signature Gardnerella Negative Negative 12/03/2018 [place] vaginalis 2:15 PM CDT LAB Lexi species Positive (A) Negative 12/03/2018 [place] 2:15 PM CDT LAB Trichomonas Negative Negative 12/03/2018 [place] vaginalis 2:15 PM CDT LAB Specimen Anatomical Collection Method Collection Time Receive d Time (Source) Location / / Volume Laterality Swab (Source SPECIMEN FROM Non-blood 12/03/2018 12:06 12/03/2018 1:16 Required) VAGINA / Unknown Collection / PM CDT PM CDT Unknown Anabell Parsons MD LAB_1 Performing Organization Address City/State/ZIP Code Phon e Number [facility] [address] [place] [address] documented in this encounter Visit Diagnoses Diagnosis Bacterial vaginosis - Primary Vaginitis and vulvovaginitis, unspecifie d documented in this encounter Care Teams Xerox Machine Assembler Relationship Specialty Start Date End Date Mary Kay Lr, LIQUOR MAKER, SURGICAL SUPERVISOR PCP - General Nurse Practitioner 12/01/17 04/23/[address] [place] [address] documented as of this encounter
--- OUTSIDE RECORDS SUMMARY | 2021-11-06 20:42 | XMS_ITS | Encounter Summary ---
:1975 Author Organization [facility] Address [address] [place] [address] Care Team Providers Name Role Phone Mary Kay Lr APRN, COMMUNITY OUTREACH MANAGER Primary Care Provider [phone] Encounter Details Date Type Department Care Team Description 12/10/[address] [facility] ry Asymptomatic HIV infection [address] ([facility]) [place], [place] [address] Social History Tobacco Use Types Packs/Day Years Used Date Smoking Tobacco: Never Smokeless Tobacco: Never Alcohol Use Standard Drinks/Week Comments Yes 7 (1 standard drink = 0.6 oz pure alcoho l) Alcohol Habits Answer Date Recorded How often do you have a drink containing 4 or more times a w [place] 02/01/2020 alcohol? How many drinks containing alcohol do you have Not asked on a typical day when you are drinking? How often do you have six or more drinks on one Not asked occasion? Comment: Not asked Sex Assigned at Date Recorded Not on file documented as of this encounter Progress Notes Vicky Son RN - 12/10/2018 10:30 AM CDT Edaixi message sent. PARTS FORMER SUPERVISOR documented in this encounter Plan of Treatment Not on filedocumented as of this encounter Procedures Procedure Name Priority Date/Time Associated Diagnosis Comme nts HIV-1 RNA QUANT Routine 12/10/2018 10:37 Asymptomatic HIV Resu lts for this AM CDT infection ([facility]) procedure ar e in the results section. CBC AND DIFFERENTIAL Routine 12/10/2018 10:37 Asymptomatic HIV Results for this PANEL AM CDT infection ([facility]) procedure ar e in the results section. CREATININE / GFR Routine 12/10/2018 10:37 Asymptomatic HIV Res ults for this AM CDT infection ([facility]) procedure ar e in the results section. COMPLETE BLOOD Routine 12/10/2018 10:37 Asymptomatic HIV Resul ts for this COUNT-W/DIFF AM CDT infection ([facility]) procedure ar e in the results section. T CELL RATIO Routine 12/10/2018 10:37 Asymptomatic HIV Results for this AM CDT infection ([facility]) procedure ar e in the results section. BILIRUBIN, TOTAL & Routine 12/10/2018 10:37 Asymptomatic HIV R esults for this DIRECT AM CDT infection ([facility]) procedure ar e in the results section. UA MICRO IF Routine 12/10/2018 10:37 Asymptomatic HIV Results for this AM CDT infection ([facility]) procedure ar e in the results section. ALT (SGPT) Routine 12/10/2018 10:37 Asymptomatic HIV Results for this AM CDT infection ([facility]) procedure ar e in the results section. AST Routine 12/10/2018 10:37 Asymptomatic HIV Results for this AM CDT infection ([facility]) procedure ar e in the results section. BUN Routine 12/10/2018 10:37 Asymptomatic HIV Results for this AM CDT infection ([facility]) procedure ar e in the results section. documented in this encounter Results (ABNORMAL) Complete Blood Count-W/Diff (12/10/2018 10:37 AM CDT) [facility] gist Method Time Signature WBC 3.8 3.5 - 12/10/2018 [facility] 10.5 11:24 AM CDT x10(9)/L RBC 4.50 3.90 - 12/10/2018 [facility] 5.03 11:24 AM CDT x10(12)/L Hemoglobin 13.2 12.0 - 12/10/2018 [facility] 15.5 g/dL 11:24 AM CDT HCT 40.6 34.9 - 12/10/2018 [facility] 44.5 % 11:24 AM CDT MCV 90.2 80.0 - 12/10/2018 [facility] 100.0 fL 11:24 AM CDT MCH 29.3 27.6 - 12/10/2018 [facility] 33.3 pg 11:24 AM CDT MCHC 32.5 31.5 - 12/10/2018 [facility] 35.2 g/dL 11:24 AM CDT RDW 11.6 (L) 11.9 - 12/10/2018 [facility] 15.5 % 11:24 AM CDT Platelets 224 150 - 450 12/10/2018 [facility] x10(9)/L 11:24 AM CDT Neutrophil 1.9 1.7 - 7.0 12/10/2018 [facility] Absolute 10(9)/L 11:24 AM CDT Lymphocyte 1.2 1.0 - 4.8 12/10/2018 [facility] Absolute 10(9)/L 11:24 AM CDT Monocytes 0.3 0.2 - 0.9 12/10/2018 [facility] Absolute 10(9)/L 11:24 AM CDT Eosinophil 0.3 0.0 - 0.5 12/10/2018 [facility] Absolute 10(9)/L 11:24 AM CDT Basophil 0.0 0.0 - 0.3 12/10/2018 [facility] Absolute 10(9)/L 11:24 AM CDT Immature Gran % 0.0 0.0 - 0.5 12/10/2018 [facility] AB % 11:24 AM CDT Specimen Anatomical Collection Method / Collection Time Recei bruno Time (Source) Location / Volume Laterality Blood Venipuncture / 12/10/2018 10:37 9 Unknown AM CDT 10:37 AM CDT Mike Hicks MD LAB_1 Performing Organization Address City/State/ZIP Code Phon e Number [facility] [address] [place] [address] UA Micro If (ONLY FOR PTS ON TENOFOVIR OR TRUVADA) (12/10/2018 10:37 AM CDT) [facility] Method Time Signature Urine Color Yellow Straw-Yellow 12/10/2018 [facility] 11:20 AM CDT Urine Clarity Clear Clear 12/10/2018 [facility] 11:20 AM CDT Specific 1.015 1.005 - 12/10/2018 [facility] [place], 1.030 11:20 AM CDT Urine PH Urine 7.0 5.0 - 8.0 12/10/2018 [facility] 11:20 AM CDT Protein, Negative Neg/Trace 12/10/2018 [facility] Urine Qual 11:20 AM CDT (mg/dL) Glucose Urine Negative Negative 12/10/2018 [facility] Qual (mg/dL) 11:20 AM CDT Ketones, Negative Negative 12/10/2018 [facility] Urine (mg/dL) 11:20 AM CDT Urobilinogen, 0.2 <2.0 12/10/2018 [facility] Urine (EU/dL) 11:20 AM CDT Bilirubin Negative Negative 12/10/2018 [facility] Urine 11:20 AM CDT Blood, Urine Negative Neg/Trace 12/10/2018 [facility] 11:20 AM CDT Nitrite Urine Negative Negative 12/10/2018 [facility] 11:20 AM CDT Leukocyte Negative Negative 12/10/2018 [facility] Est. 11:20 AM CDT Specimen Anatomical Collection Method Collection Time Receive d Time (Source) Location / / Volume Laterality Urine URINE SPECIMEN Non-blood 12/10/2018 10:37 9 COLLECTION, CLEAN Collection / AM CDT 10:37 AM C DT CATCH / Unknown Unknown Mike Hicks MD LAB_1 Performing Organization Address City/State/ZIP Code Phon e Number [facility] [address] [place] [address] T Cell Ratio (12/10/2018 10:37 AM CDT) P athologist Signature CD3 (T Cells) % 78.4 62.1 - 12/10/2018 [facility] 85.0 % 1:40 PM CDT HOSPITAL CD3 (T Cells) 850 500-2,544 12/10/2018 [facility] Absolute /UL 1:40 PM CDT HOSPITAL CD3/CD4 (T 44.5 31.6 - 12/10/2018 [facility] [place] Cells) % 65.7 % 1:40 PM CDT HOSPITAL CD3/CD4 (T 483 337-1,687 12/10/2018 [facility] [place] Cells) /UL 1:40 PM CDT HOSPITAL Absolute CD3/CD8 (T 36.0 10.0 - 12/10/2018 [facility] Suppressor/Cyto 40.0 % 1:40 PM CDT HOSPITAL toxic Cells) % CD3/CD8 (T 391 140 - 907 12/10/2018 [facility] Suppressor/Cyto /UL 1:40 PM CDT HOSPITAL toxic Cells) Absolute CD4/CD8 Ratio 1.2 0.8 - 3.7 12/10/2018 [facility] 1:40 PM CDT HOSPITAL Specimen Anatomical Collection Method / Collection Time Recei bruno Time (Source) Location / Volume Laterality Blood Venipuncture / 12/10/2018 10:37 9 Unknown AM CDT 10:37 AM CDT Mike Hicks MD LAB_1 Performing Organization Address City/[facility] Phon e Number [address] [address] HIV-1 RNA Quant by TMA (12/10/2018 10:37 AM CDT) [facility] Signature HIV Interp Not Not 12/13/2018 [facility] Detected Detected 12:56 PM [facility] TOY PARTS FORMER SUPERVISOR HIV Copies <30 <30 12/13/2018 [facility] per/ml copies/mL 12:56 PM [facility] TOY PARTS FORMER SUPERVISOR HIV Log <1.47 <1.47 log 12/13/2018 [facility] Copies/ml copies/mL 12:56 PM [facility] TOY PARTS FORMER SUPERVISOR Specimen Anatomical Collection Method / Collection Time Recei bruno Time (Source) Location / Volume Laterality Blood Venipuncture / 12/10/2018 10:37 9 Unknown AM CDT 10:37 AM CDT Narrative [facility] - 12/13/2018 12:56 PM TOY PARTS FORMER SUPERVISOR Test performed by Agriculturist Mediated Amplification. Mike Hicks MD LAB_1 Performing Organization Address City/[facility]/ZIP Code Phon e Number [facility] [address] [address] Creatinine / GFR (12/10/2018 10:37 AM CDT) [facility] Method Time Signature Creatinine 0.71 0.55 - 12/10/2018 [facility] 1.02 3:39 PM CDT [facility] mg/dL GFR, Estimated >60 >60 12/10/2018 [facility] mL/min/1. 3:39 PM CDT [facility] 73m2 GFR, Est If >60 >60 12/10/2018 [facility] mL/min/1. 3:39 PM CDT [facility] [place] 73m2 Specimen Anatomical Collection Method / Collection Time Recei bruno Time (Source) Location / Volume Laterality Blood Venipuncture / 12/10/2018 10:37 9 Unknown AM CDT 10:37 AM CDT Mike Hicks MD LAB_1 Performing Organization Address [facility] Phon e Number [facility] [address] [address] BUN (12/10/2018 10:37 AM CDT) P athologist Signature BUN 11 7 - 12/10/2018 [facility] mg/dL 3:39 PM CDT [facility] Specimen Anatomical Collection Method / Collection Time Recei bruno Time (Source) Location / Volume Laterality Blood Venipuncture / 12/10/2018 10:37 9 Unknown AM CDT 10:37 AM CDT Mike Hicks MD LAB_1 Performing Organization Address [facility] Phon e Number [facility] [address] [address] Bilirubin, Total & Direct (12/10/2018 10:37 AM CDT) Patholo gist Method Time Signature Bilirubin, 0.2 0.0 - 0.5 12/10/2018 [facility] Direct mg/dL 3:39 PM CDT [facility] Bilirubin, 0.3 0.2 - 1.2 12/10/2018 [facility] Total mg/dL 3:39 PM CDT [facility] Specimen Anatomical Collection Method / Collection Time Recei bruno Time (Source) Location / Volume Laterality Blood Venipuncture / 12/10/2018 10:37 9 Unknown AM CDT 10:37 AM CDT Mike Hicks MD LAB_1 Performing Organization Address [facility] Phon e Number [facility] [address] [address] AST (12/10/2018 10:37 AM CDT) P athologist Signature AST (SGOT) 19 10 - 40 12/10/2018 [facility] U/L 3:39 PM CDT [facility] Specimen Anatomical Collection Method / Collection Time Recei bruno Time (Source) Location / Volume Laterality Blood Venipuncture / 12/10/2018 10:37 9 Unknown AM CDT 10:37 AM CDT Mike Hicks MD LAB_1 Performing Organization Address [facility]/ZIP Code Phon e Number [facility] [address] [address] ALT (SGPT) (12/10/2018 10:37 AM CDT) athologist Signature ALT (SGPT) 18 0 - 55 U/L 12/10/2018 [facility] 3:39 PM CDT [facility] Specimen Anatomical Collection Method / Collection Time Recei bruno Time (Source) Location / Volume Laterality Blood Venipuncture / 12/10/2018 10:37 9 Unknown AM CDT 10:37 AM CDT Mike Hicks MD LAB_1 Performing Organization Address [facility] Phon e Number [facility] [address] [address] documented in this encounter Visit Diagnoses Diagnosis Asymptomatic HIV infection ([facility]) Asymptomatic human immunodeficiency viru s (HIV) infection status documented in this encounter Care Teams Fur Glazer Relationship Specialty Start Date End Date Mary Kay Lr, STEM ROLLER OPERATOR, COMMUNITY OUTREACH MANAGER PCP - General Nurse Practitioner 12/01/17 04/23/21 [address] [place] [address] documented as of this encounter
--- OUTSIDE RECORDS SUMMARY | 2021-11-06 20:42 | XMS_ITS | Encounter Summary ---
:1975 Author Organization [facility] Address [address] [place] [address] Care Team Providers Name Role Phone Deepjordan Mary Kay Pitt APRN, NEWS INTERN Primary Care Provider [phone] Reason for Visit Reason Comments Vaginal Problems Encounter Details Date Type Department Care Team Description 03/30/2018 Telephone [facility] Valeria Toure RN Vaginal Problems and Gynecology Physi cians [address] [place] [address] [place], [place] [address] [phone] Social History Tobacco Use Types Packs/Day Years Used Date Smoking Tobacco: Never Smokeless Tobacco: Never Alcohol Use Standard Drinks/Week Comments Yes 7 (1 standard drink = 0.6 oz pure alcoho l) Alcohol Habits Answer Date Recorded How often do you have a drink containing 4 or more times a w [place] 02/01/2020 alcohol? How many drinks containing alcohol do you have Not asked on a typical day when you are drinking? How often do you have six or more drinks on one Not asked occasion? Comment: Not asked Sex Assigned at Date Recorded Not on file documented as of this encounter Nursing Notes Elis Toure RN - 03/30/2018 12:14 PM CST Pt notified. Rx sent.Elis Toure RN 03/30/2018, 12:15 PM ING SHOW HOST Elis Toure RN - 03/30/2018 11:27 AM CST Left message for pt to call back. Elis Toure RN 03/30/2018, 11:28 AM ING SHOW HOST Roxy Diane MD - 03/30/2018 10:59 AM CST She can try using the terconazole that I ordered at the same time - would use nightly for 7 nights. Roxy Diane MD ING SHOW HOST Elis Toure RN - 03/30/2018 9:46 AM CST She started Metronidazole on Thursday. She is still having symptoms of irritation and itching. Feels like a yeast infection although vag panel was negative. Any other recommendation? Elis Toure RN 03/30/2018, 10:17 AM ING SHOW HOST documented in this encounter Plan of Treatment Not on filedocumented as of this encounter Visit Diagnoses Not on filedocumented in this encounter Care Teams Hose Inspector And Patcher Relationship Specialty Start Date End Date Mary Kay Lr, FIREWORKS ASSEMBLY SUPERVISOR, NEWS INTERN PCP - General Nurse Practitioner 12/01/17 04/23/21 [address] [place] [address] documented as of this encounter
--- OUTSIDE RECORDS SUMMARY | 2021-11-06 20:42 | XMS_ITS | Encounter Summary ---
:1975 Author Organization [facility] Address [address] [place] [address] Care Team Providers Name Role Phone Mary Kay Lr APRN, CONSULTING SENIOR PRACTICE DIRECTOR Primary Care Provider [phone] Reason for Visit Reason Comments Yeast Infection Encounter Details Date Type Department Care Team Description 10/14/2018 Telephone [facility] and MesfinElis kolb RN Yeast Infection Gynecology Physician s [address] [place] [address] [place], [place] [address] [phone] Social History Tobacco Use Types Packs/Day Years Used Date Smoking Tobacco: Never Smokeless Tobacco: Never Alcohol Use Standard Drinks/Week Comments Yes 7 (1 standard drink = 0.6 oz pure alcoho l) Alcohol Habits Answer Date Recorded How often do you have a drink containing 4 or more times a w [place] 02/01/2020 alcohol? How many drinks containing alcohol do you have Not asked on a typical day when you are drinking? How often do you have six or more drinks on one Not asked occasion? Comment: Not asked Sex Assigned at Date Recorded Not on file documented as of this encounter Nursing Notes Grace Murillo RN - 11/30/2018 11:13 AM CDT Patient called today and states that her symptom concern improve after course of antibiotics (Flagyl) but continue to reoccur. Based on Dr. Diane treatment plan below. Patient will follow up with Dr Parsons, 12/03 first available, to discuss reoccurring symptom concerns. Grace Murillo RN 11/30/2018, 11:16 AM Elis Toure RN - 10/14/2018 2:07 PM CDT Pt notified. She will call if she is not getting better. Elis Toure RN 10/14/2018, 2:07 PM Roxy Diane MD - 10/14/2018 1:20 PM CDT She can try a course of Flagyl 500 mg BID x 7 days if she has not already done this. If symptoms persist after that or if she has already taken Flagyl, I recommend that she come in for evaluation. Roxy Diane MD 10/14/2018 1:20 PM Elis Toure RN - 10/14/2018 12:03 PM CDT She has hailee itching for a week. She took 4 fluconazole with the last one being 3 days ago. Not helping. She would like to know your recommendations. No odor, no bleeding, no pain. She prefers not to come in, but does not know what would help her now. Elis Toure RN 10/14/2018, 12:04 PM documented in this encounter Plan of Treatment Not on filedocumented as of this encounter Visit Diagnoses Not on filedocumented in this encounter Care Teams Rotary Driller Helper Relationship Specialty Start Date End Date Mary Kay Lr, COLOR WEIGHER, CONSULTING SENIOR PRACTICE DIRECTOR PCP - General Nurse Practitioner 12/01/17 04/23/21 [address] [place] [address] documented as of this encounter
--- OUTSIDE RECORDS SUMMARY | 2021-11-06 20:42 | XMS_ITS | Encounter Summary ---
:1975 Author Organization [facility] Address [address] [place] [address] Care Team Providers Name Role Phone Kelli Lewis MD Primary Care Provider [phone] Encounter Details Date Type Department Care Team Description 02/01/2018 Refill Order [facility] 401 Chante Hicks MD Infectious Disease [address] [place] [address] [place] [address] [phone] Social History Tobacco Use Types Packs/Day Years [...] documented as of this encounter Care Teams Maid Cleaning Cooking Relationship Specialty Start Date End Date Kelli Lewis MD PCP - General Family Practice 04/24/21 [address], [place] [address] documented as of this encounter
--- OUTSIDE RECORDS SUMMARY | 2021-11-06 20:42 | XMS_ITS | Encounter Summary ---
:[address] [address] Address [address] [place] [address] Care Team Providers Name Role Phone Mary Kay Lr APRN, COCKTAIL SERVER Primary Care Provider [phone] Reason for Visit Reason Comments RESULTS, TEST Encounter Details Date Type Department Care Team Description 12/03/2018 Telephone [facility] and Khanh rAnabell MD RESULTS, TEST Gynecology Physician s [address] [facility] [address] [facility] [place] [address] [place], [place] [address] [phone] Social History Tobacco Use Types Packs/Day Years Used Date Smoking Tobacco: Never Smokeless Tobacco: Never Alcohol Use Standard Drinks/Week Comments Yes 7 (1 standard drink = 0.6 oz pure alcoho l) Alcohol Habits Answer Date Recorded How often do you have a drink containing 4 or more times a w [place] 02/01/2020 alcohol? How many drinks containing alcohol do you have Not asked on a typical day when you are drinking? How often do you have six or more drinks on one Not asked occasion? Comment: Not asked Sex Assigned at Date Recorded Not on file documented as of this encounter Progress Notes Meir Edwards RN - 12/07/2018 11:38 AM CDT Addended by: MEIR EDWARDS on: 12/07/2018 11:38 AM Modules accepted: SmartSet documented in this encounter Nursing Notes Meir Edwards RN - 12/07/2018 3:44 PM CDT Patient called and RN notified patient of entire message below from Dr. Parsons regarding Diflucan prescription. Patient verbalized understanding and appreciation, and agreed with the plan. Meir Edwards RN 12/07/2018, 3:52 PM Anabell Parsons MD - 12/07/2018 3:42 PM CDT If she has taken 2 doses of Diflucan, no need to take more. If her symptoms have not resolved within1 week, she should let me know. Thanks. Meir Edwards RN - 12/07/2018 11:19 AM CDT Patient remains confused regarding Diflucan prescription. Patient has taken one pill on Thursday12/03/2018 and one pill yesterday 12/06/2018. Not taking Flagyl. please advise, Relayed to patient that message will be forwarded to provider and will contact patient with providers' response. Contact information provided for additional questions and/or symptom concerns. Meir Edwards RN 12/07/2018, 11:36 AM Sari Clay RN - 12/07/2018 8:23 AM CDT The pt called back and left a voicemail with questions about her diflucan. Called pt. Left message to call back. Sari Clay RN Meir Edwards RN - 12/03/2018 4:46 PM CDT Patient called and RN notified patient of entire message below from Dr. Parsons. Reviewed current prescription Diflucan prescription and message with patient. Patient verbalized understanding and appreciation, and agreed with the plan. Meir Edwards RN 12/03/2018, 4:53 PM Anabell Parsons MD - 12/03/2018 3:48 PM CDT I would recommend that she take the Diflucan prescribed today and then repeat it in 1 week. No need to take the Flagyl, but if she has already picked it up she can keep it for future use if needed. Thanks. Sari Clay RN - 12/03/2018 2:47 PM CDT The pt called to discuss lab results. Provider to review and advise. Sari Clay RN Sari Clay RN - 12/03/2018 2:45 PM CDT Component Latest Ref Rng & Units 12/03/2018 Gardnerella Negative Negative Lexi Negative Positive (A) Trich Vaginalis Negative Negative Result Notes for Vaginitis Panel Notes recorded by Sari Clay RN on 12/03/2018 at 2:25 PM CDT Will send to provider to review and advise. The pt was prescribed medication for BV and yeast. Sari Clay RN documented in this encounter Plan of Treatment Not on filedocumented as of this encounter Visit Diagnoses Not on filedocumented in this encounter Care Teams Phone Manager Relationship Specialty Start Date End Date Mary Kay Lr, SOCIAL SERVICES COORDINATOR, COCKTAIL SERVER PCP - General Nurse Practitioner 12/01/17 04/23/21 [address] [place] [address] documented as of this encounter
--- OUTSIDE RECORDS SUMMARY | 2021-11-06 20:42 | XMS_ITS | Encounter Summary ---
:1975 Author Organization [facility] Address [address] [place] [address] Care Team Providers Name Role Phone Mary Kay Lr APRN, RN CARE TRANSITION Primary Care Provider [phone] Encounter Details Date Type Department Care Team Description 04/14/2019 Office Visit [facility] Pain of toe of right foot (Primary Dx); Ankle Surgery/Podiat stephy J, DPM Raynaud's disease without gangrene [address] [place], [place] [address] [place], [place] [phone] [id number] Social History Tobacco Use Types Packs/Day Years Used Date Smoking Tobacco: Never Smokeless Tobacco: Never Alcohol Use Standard Drinks/Week Comments Yes 7 (1 standard drink = 0.6 oz pure alcoho l) Alcohol Habits Answer Date Recorded How often do you have a drink containing 4 or more times a w platinum 02/01/2020 alcohol? How many drinks containing alcohol do you have Not asked on a typical day when you are drinking? How often do you have six or more drinks on one Not asked occasion? Comment: Not asked Sex Assigned at Date Recorded Not on file documented as of this encounter Patient Instructions Patient InstructionsMontserrat Romero CMA - 04/14/2019 9:40 AM CST Thank you for choosing [facility]. If you have any questions or concerns, please contact us at [phone]. ETT FIXER documented in this encounter Progress Notes Kris Hernandez DPM - 04/14/2019 9:40 AM CST Subjective: Cristiana Castillo is a 44 y.o. non-diabetic female who presents for initial evaluation Chief complaint: Right great 2-4 toes pain, swollen Preferred name: Cristiana Blood sugar this a.m.: n/a Accompanied by: unaccompanied. 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 Negative review of systems: anxiety, back pain, blood in stool, chest pain with activity, chills, chronic cough, depression, easy bleeding/bruising, excessive thirst, fatigue, fever, heartburn, joint or muscle pain, joint stiffness, leg pain when walking, limping, numbness, open wound, painful urination, rash, shortness of breath with activity, swelling of ankles and weakness Personal medical history: denies diabetes or other medical conditions Family medical history: no related family medical history Other pertinent history: n/a Specific questions or requests from the provider? none Did you have X-rays taken today? no Objective: General appearance: Patient is alert and fully cooperative with history & exam. No sign of distress is noted during the visit. Musculoskeletal: mild TTP to digits 2-4 tips on the right, mainly 3rd. Some bruising present. No pain with IPJ or MPJ ROM. Patient is ambulatory without assistive device or brace. No gross ankle deformity noted. Not foot or ankle joint effusion is noted. Vascular: DP and PT pulses are intact and regular bilaterally. Feet cool to touch. History of Raynauds Neurologic: Lower extremity sensation is intact to light touch. No evidence of weakness or contracture in the lower extremities. No evidence of neuropathy. Dermatologic: Skin is intact to both lower extremities without significant lesions, rash or abrasion. No paronychia or evidence of soft tissue infection is noted. Slight discoloration of toenail plates Lymph: No evidence of lymphadenopathy or lymphedema is noted. Respiratory: Breathing is regular and unlabored while sitting. HEENT: Hearing is intact to spoken word. No evidence of visual impairment that would impact self care or ambulation. Psychiatric: Affect is pleasant and appropriate. No unusual anxiety or depression noted. Patient appears motivated to improve health and follow direction. Assessment: Toe pain digits 2 through 4, right Raynaud's Possible onychomycosis Plan: Exam findings discussed with patient. On the day when the pain started her feet were sliding in a large tear boots and she went on a run which likely led to some repetitive trauma to the area. There isslight bruising. I think this will get better with time as long as the repetitive trauma does not continue. I would avoid running until toes are pain free. She is using Vicks vapor rub on her toenails.I think this is appropriate. There is slight discoloration without significant thickening she also has Raynaud's disease and is using normal socks during the season. She will plan to follow up if she fails to improve Danie Hernandez DPM Foot and Ankle Surgery This note created using speech-recognition software and may contain unintended word substitutions. ETT FIXER documented in this encounter Plan of Treatment Not on filedocumented as of this encounter Visit Diagnoses Diagnosis Pain of toe of right foot - Primary Pain in limb Raynaud's disease without gangrene ([facility]) documented in this encounter Care Teams Pressure Steamer Tender Relationship Specialty Start Date End Date Mary Kay Lr, CENTER MANAGER, RN CARE TRANSITION PCP - General Nurse Practitioner 12/01/17 04/23/21 [address] [place] [address] documented as of this encounter
--- OUTSIDE RECORDS SUMMARY | 2021-11-06 20:42 | XMS_ITS | Encounter Summary ---
:1975 Author Organization [facility] Address [address] [place] [address] Care Team Providers Name Role Phone Mary Kay Lr APRN, METAL DRILL PRESS OPERATOR Primary Care Provider [phone] Encounter Details Date Type Department Care Team Description 08/09/2019 Telephone Foreman Obstetrics and Stapl es, Saray Hanson MD Gynecology Physician s [address] [facility] [address] [facility] [place] [address] [place], [place] [address] [phone] Social History Tobacco Use Types Packs/Day Years Used Date Smoking Tobacco: Never Smokeless Tobacco: Never Alcohol Use Standard Drinks/Week Comments Yes 7 (1 standard drink = 0.6 oz pure alcoho l) Alcohol Habits Answer Date Recorded How often do you have a drink containing 4 or more times a w king salmon 02/01/2020 alcohol? How many drinks containing alcohol do you have Not asked on a typical day when you are drinking? How often do you have six or more drinks on one Not asked occasion? Comment: Not asked Sex Assigned at Date Recorded Not on file documented as of this encounter Nursing Notes Sari Clay RN - 08/09/2019 3:17 PM CDT Pt reports she has been taking diflucan for recurrent yeast infections. She has been off the medication for a while now and was doing well. Now she is starting to have some itching and other sx. The pt reports: Vaginal itching Patient has the following serious or complicating symptoms present. If any of the following symptomspresent, patient should be scheduled for a clinician visit: history of chronic/frequent yeast infections (3 or more in the last year) : No Allergies: Patient has no known allergies. Assessment: Possible Vaginitis Plan: Recommended she be seen in clinic. We have no openings with an MD at our clinic this week. Offered other locations. The pt will go to tomorrow and will call us with the results. She prefers harshad tested as she has had both BV and yeast in the past and wants to make sure she is treated appropriately. She will go to [facility]. She has no further questions or concerns at this time. Sari Clay RN documented in this encounter Plan of Treatment Not on filedocumented as of this encounter Visit Diagnoses Not on filedocumented in this encounter Care Teams Commissioned Fire Officer Relationship Specialty Start Date End Date Mary Kay Lr, HEALTH CARE COORDINATOR, METAL DRILL PRESS OPERATOR PCP - General Nurse Practitioner 12/01/17 04/23/21 [address] [place] [address] documented as of this encounter
--- OUTSIDE RECORDS SUMMARY | 2021-11-06 20:42 | XMS_ITS | Encounter Summary ---
:1975 Author Organization [facility] Address [address], [place] [address] Care Team Providers Name Role Phone Kelli Lewis MD Primary Care Provider [phone] Encounter Details Date Type Department Care Team Description 02/18/2018 Correspondence External to External, Provid [place] [employer] [address] Social History Tobacco Use Types Packs/Day Years Used Date Smoking Tobacco: Never Smokeless Tobacco: Never Alcohol Use Standard Drinks/Week Comments Yes 7 (1 standard drink = 0.6 oz pure alcoho l) Alcohol Habits Answer Date Recorded How often do you have a drink containing 4 or more times a w chicken ranch 02/01/2020 alcohol? How many drinks containing alcohol [...] documented as of this encounter Care Teams Radiological Defense Officer Relationship Specialty Start Date End Date Kelli Lewis MD PCP - General Family Practice 04/24/21 [address] [place] [address] documented as of this encounter
--- OUTSIDE RECORDS SUMMARY | 2021-11-06 20:43 | XMS_ITS | Encounter Summary ---
:1975 Author Organization [facility] Address [address], [place] [address] Care Team Providers Name Role Phone Gayatri Lr APRN, CNP Primary Care Provider [phone] Reason for Referral Consult/Transfer Care (Routine) - Closed Specialty Diagnoses / Procedures Referred By Contact Refer red To Contact Diagnoses Decreased hearing of both ears Gayatri Lr APRN, CNP [address] [place], [place] [address] Referral ID Status Reason Start Date Expiration Date Visits Requ ested Visits Authorized [id number] Closed 12/16/2017 03/17/2019 1 1 Scheduling Instructions Your provider has recommended an appoint ment with [facility]. You may call [phone], optio n [phone], to schedule your appointment. If you prefer, a healthcare market consultant will contact you [facility] the next 3 business days to assist you in setting up this appointment. We suggest you call your health insurance company about your coverage and benefits for this appo intment. IGHTENING ROLL OPERATOR Procedure/Equipment (Routine) - Incomplete Specialty Diagnoses / Procedures Referred By Contact Refer red To Contact Diagnoses Routine general medical examination at health care facility Gayatri Lr APRN, CNP Procedures MM Mammogram Screening Bilat W CAD [address] [place], [place] [address] Referral ID Status Reason Start Date Expiration Date Visits V isits Requested Authorized [id number] Incomplete 12/16/2017 03/17/2019 1 1 IGHTENING ROLL OPERATOR Reason for Visit Reason Comments ROUTINE HEALTH MAINTENANCE Medication Request would like standing RX of fl uconazole for recurrent yeast infection Encounter Details Date Type Department Care Team Description 12/16/2017 Office Visit [place] [facility] Gayatri Lr, Zander mercedes general medical examination at health care facility (Primary Dx); Medicine CHRISTA MOHAN S/P hysterectomy; [address] Asymptomatic HIV infection (HRC); [place], [place] [address] [place], [place] Mild intermittent asthma wit hout complication; [phone] Decreased hearing of both ears Social History Tobacco Use Types Packs/Day Years Used Date Smoking Tobacco: Never Smokeless Tobacco: Never Alcohol Use Standard Drinks/Week Comments Yes 7 (1 standard drink = 0.6 oz pure alcoho l) Alcohol Habits Answer Date Recorded How often do you have a drink containing 4 or more times a w [place] 02/01/2020 alcohol? How many drinks containing alcohol do you have Not asked on a typical day when you are drinking? How often do you have six or more drinks on one Not asked occasion? Comment: Not asked Sex Assigned at Date Recorded Not on file documented as of this encounter Last Filed Vital Signs Vital Sign Reading Time Taken Comments Blood Pressure 115/82 12/16/2017 4:08 PM STRAIGHTENING ROLL OPERATOR Pulse 70 12/16/2017 4:08 PM STRAIGHTENING ROLL OPERATOR Temperature 36.6 ??C (97.9 ??F) 12/16/2017 4:08 PM STRAIGHTENING ROLL OPERATOR Respiratory Rate 16 12/16/2017 4:08 PM STRAIGHTENING ROLL OPERATOR Oxygen Saturation - - Inhaled Oxygen Concentration - - Weight 57.6 kg (127 lb) 12/16/2017 4:08 PM STRAIGHTENING ROLL OPERATOR Height 170.2 cm (5' 7) 12/16/2017 4:08 PM STRAIGHTENING ROLL OPERATOR Body Mass Index 19.89 12/16/2017 4:08 PM STRAIGHTENING ROLL OPERATOR documented in this encounter Patient Instructions Patient InstructionsRalph-Liz Lopez LPN - 12/16/2017 3:22 PM STRAIGHTENING ROLL OPERATOR Images from the original note were not included. Current recommendations: Vitamin D 2,000 IU daily to prevent deficiency. Aim for 4-6 servings of fruits and veggies daily and 8-10 glasses of water (64- 80 oz). try limiting animal based fats, saturated fats, processed foods and sweets as a part of a heart-healthy diet. Aim for at least 150 minutes of regular exercise per week outside of work and activities of daily living. It averages out to be 30 minutes 5 days a week. Aim for 8-10 hours of sleep. Keep screens outside of the bedroom (TV, phone, tablets, computers) to achieve more restful sleep. Follow up in 1 year for a routine physical exam, sooner if new concerns arise. Schedule an appointment with audiology for evaluation of hearing loss. Raynaud's: Care Instructions Your Care Instructions Raynaud's is a condition that causes your hands and feet to overreact to cold. They may become painful and numb, and they can change colors, becoming very pale and then blue. This condition also is called Raynaud's phenomenon. There are two kinds of Raynaud's. Primary Raynaud's, also known as Raynaud's disease, happens by itself and is the most common form. Secondary Raynaud's, also called Raynaud's syndrome, happens as part of another disease. In Raynaud's, the small vessels that bring blood to the skin either become narrow, or constrict for a short period of time. This limits blood flow to the hands and feet and sometimes to the nose or ears. Your hands and feet feel cold and numb and then turn very pale. As blood flow returns, your fingers and toes may turn red, and begin to throb and hurt. Raynaud's can be painful and annoying, but it usually does not cause serious problems. You can take simple steps to protect your hands and feet from the cold. If you have a bad case of Raynaud's and you cannot keep your hands and feet warm enough, your doctor may prescribe medicine. Follow-up care is a lee part of your treatment and safety. Be sure to make and go to all appointments, and call your doctor if you are having problems. It's also a good idea to know your test results and keep a list of the medicines you take. How can you care for yourself at home? To prevent Raynaud's episodes or ease symptoms ?? Run warm water over your hands or feet to increase blood flow. Use another part of your body, such as your forearm, to make sure the water is not too hot; you could burn your hands or feet and not feel it because they are numb. ?? Swing your arms in a ambler at the sides of your body (windmilling) to increase blood flow. ?? If your doctor prescribes medicine to help Raynaud's, take it exactly as prescribed. Call your doctor if you think you are having a problem with your medicine. ?? If another condition causes your Raynaud's, make sure to follow your treatment for that condition. ?? Wear mittens or gloves when it is cold outside. Mittens are warmer than gloves because they keep your fingers together. Gloves underneath mittens will keep your hands warmer than gloves alone. You also can use pot holders or oven mitts when getting something from the freezer or refrigerator. ?? You can slip chemical hand warmers into your mittens or gloves when you do outside activities. ?? Do not smoke. Nicotine makes blood vessels constrict, which can bring on an attack. If you need help quitting, talk to your doctor about stop-smoking programs and medicines. These can increase your chances of quitting for good. ?? Avoid caffeine and cold medicines that have pseudoephedrine. They make blood vessels constrict. Beta-eddie medicines, often used to treat high blood pressure, also can make Raynaud's worse. ?? Drink plenty of fluids to prevent dehydration, which can lower the amount of blood moving throughthe blood vessels. If you have kidney, heart, or liver disease and have to limit fluids, talk with your doctor before you increase the amount of fluids you drink. ?? Try to stay calm when you are under stress. Anxiety can make your blood vessels constrict and lead to a Raynaud's attack. To keep your whole body warm ?? Eat a hot meal and drink a warm liquid before going outside. They may help raise your body temperature. ?? Wear layers of warm clothing. The inner layer should be made of a material such as polypropylene that pulls moisture away from your body. ?? Wear a hat. ?? Do not wear clothing that is too tight. It can decrease or cut off blood flow. ?? Try to stay dry. Choose waterproof, breathable jackets and boots. Being wet makes you more likelyto become chilled. When should you call for help? Call your doctor now or seek immediate medical care if: ? You have severe pain in your hands or feet. ? Normal color does not return to your hands or feet. ? Your hands or feet do not warm up even after home care. ??Watch closely for changes in your health, and be sure to contact your doctor if you have any problems. Where can you learn more? 1. Go to [employer] or [employer]. 2. Enter P043 in the search box. Current as of: July 20, 2017 Content Version: 11.8 ?? 7153-5414 [employer], [employer]. Well Visit, Ages 18 to 50: Care [...] Wear a seat belt in the car. ?? Drink alcohol in moderation, if at all. That means no more than 2 drinks a day for men and 1 drink a day for women. Follow your doctor's advice about when to [...] have tests for diabetes. ?? Colon cancer. Have a test for colon cancer at age 50. You may have one of several tests. If you are younger than 50, you may need a test earlier if you have any risk factors. Risk factors include whether you already had a precancerous polyp removed from your colon or whether your parent, brother, si ster, or child has had colon cancer. For women ?? Breast exam and mammogram. Talk to your doctor about when you should have a clinical breast exam and a mammogram. Medical experts differ on whether and how often women under 50 should have these tests. Your doctor can help you decide what is right for you. ?? Pap test and pelvic exam. Begin Pap tests at age 21. A Pap test is the best way to find cervical cancer. The test often is part of a pelvic exam. Ask how often to have this test. ?? Tests for sexually transmitted infections (STIs). [...] you are older than 45 and are -Icelandic or have a father or brother who got prostatecancer when he was younger than 65. When should you call for help? Watch closely for changes in your health, and be sure to contact your doctor if you have any problems or symptoms that concern you. Where can you learn more? 1. Go to [employer] or [employer]. 2. Enter P072 in the search box. Current as of: May 07, 2017 Content Version: 11.8 ?? [id number] [employer]. IGHTENING ROLL OPERATOR documented in this encounter Progress Notes Curtis Aparicio DO - 12/16/2017 4:00 PM CST Anal cytology results normal (negative for intraepithelial lesion). HPV continues to be positive. Recommend repeating digital anorectal exam and anal PAP in 1 year. Naheed Aparicio DO IGHTENING ROLL OPERATOR Gayatri Lr APRN, CHRISTA - 12/16/2017 3:22 PM CST Routine Health Maintenance: Historical: Cristiana Castillo is a 42 y.o. old female Chief Complaint Patient presents with ??? ROUTINE HEALTH MAINTENANCE ??? Medication Request would like standing RX of fluconazole for recurrent yeast infection Cristiana Castillo is a 42 y.o. old female with PMH significant for asymptomatic HIV, diagnosed on routine screening earlier this year. Started Genvoya 03/2017 and obtained full viral suppression. She is followed by Dr. Hicks in [place], last work-up 09/22/17 which was unremarkable. She is s/p hysterectomy and oophorectomy. Current concerns: Frequent yeast infections. At times has them month to every month and a half. She uses one day monistat on a regular basis with good improvement of symptoms. She is not having symptoms at this time. Decreased hearing over the past 6 months. Needs to ask people to repeat. Decreased hearing with or without background noise. L ear - pain/cracking sensation with loud noises. Needs to carry ear plugs with her. She has Hx of bilateral hand and feet turning purple and cold when exposed to cold temperatures withstress in a stocking-glove pattern. She is able to control symptoms with using hand and foot warmersand drinking hot fluids prior to going outside. Menses are: absent- hysterectomy History of abnormal pap tests? No but recurrent yeast infections Are you sexually active? Yes. Your partner is: Male Do You use Contraception? No Diet: fruits/ vegetables: 2-4 servings each day Present exercise habits: 30 minutes or more, >3-5 times per week Do you have any concerns about your hearing? YES Have you: -felt little interest or pleasure in doing things, for a few days or more in the last 2 weeks? OR -felt down, depressed or hopeless for a few days or more in the last 2 weeks? no Do you feel unsafe at home? no I have reviewed the medical, surgical, family and social histories. Observed: BP 115/82 Pulse 70 Temp 97.9 ??F (36.6 ??C) (Oral) Resp 16 Ht 5' 7 (1.702 m) Wt 127 lb (57.6 kg) BMI 19.89 kg/m2 General: Appears stated age, alert and comfortable HEENT: normal eyes, ears, throat, oropharynx. Bilateral TM's clear, pearly yousif with normal light reflex. No ceruminosis Neck: thyroid normal, no pre or post-auricular, occipital, supra or infraclavicular, cervical lymphadenopathy. Lungs: clear to auscultation, no wheezes or rales Breasts: no skin changes, no dominant masses, no axillary lymphadenopathy CV: regular rate and rhythm, normal S1 and S2 without murmur or click Abd: Soft, non-tender, no masses, no hepatomegaly or splenomegaly. : pelvic exam not indicated rectal exam: external non-tender, non-thrombosed hemorrhoids, anal pap and HPV colected Skin: no significant abnormalities noted Assessment/Plan: ICD-10-CM 1. Routine general medical examination at health care facility Z00.00 PCV13 (PREVNAR) TSH with Free T4 (if TSH Abnormal) Lipid Panel and Direct LDL(If Needed) Glucose - Fasting > 8 Hrs Fasting MM Mammogram Screening Bilat W CAD 2. S/P hysterectomy Z90.710 3. Asymptomatic HIV infection (HRC) Z21 Scr Pap Smer; Obtain Prep&Convy-Lab Pap Test, Anal Human Papillomavirus (HPV), High Risk by PCR, [facility] 4. Mild intermittent asthma without complication (HRC) J45.20 ALBUterol sulfate HFA 108 (90 Base) MCG/ACT inhaler 5. Decreased hearing of both ears H91.93 Otolaryngology Consult Adult/Peds Patient counseled: -healthy diet -increasing physical activity -calcium and vitamin D recommendations -recommended immunizations Gayatri Lr APRN, CNP 12/16/2017, 5:01 PM IGHTENING ROLL OPERATOR documented in this encounter Plan of Treatment Scheduled Referrals Name Type Priority Associated Diagnoses Order S chedule Otolaryngology Consult Referral Routine Decreased hearing of Ordered: 12/16/2017 Adult/Peds both ears documented as of this encounter Procedures Procedure Name Priority Date/Time Associated Diagnosis Comme nts PAP TEST, ANAL Routine 12/16/2017 5:13 PM Asymptomatic HIV Res ults for this STRAIGHTENING ROLL OPERATOR infection (HRC) procedure ar e in the results section. documented in this encounter Results MM Mammogram Screening Bilat W CAD (03/01/2018 3:37 PM STRAIGHTENING ROLL OPERATOR) Anatomical Region Laterality Modality Breast Bilateral Mammography Specimen (Source) Anatomical Location Collection Method / Collectio n Time Received Time / Laterality Volume Impressions 03/02/2018 2:23 PM STRAIGHTENING ROLL OPERATOR : ACR BI-RADS Category 1: Negative RECOMMENDATION: Follow Up Imaging in 12 months - Bilateral The results and recommendations of this examination will be communicated to the patient. Narrative 03/02/2018 2:23 PM STRAIGHTENING ROLL OPERATOR MM MAMMOGRAM SCREENING BILAT W CAD performed on 03/01/18 Compared to: 06/26/2016 MM Mammogram Kaci g Bilat W Ad[place]o FINDINGS: Bilateral screening mammogram was performed with the assistance of Computer-Aided Detection. The breasts are extremely dense, which lowers the sensitivity of mammography. There is no radiographic evidence of mal ignancy. ?? Gayatri Lr APRN, DIRECT CARE PROVIDER RAD LIONEL (ABNORMAL) Human Papillomavirus (HPV), High Risk by PCR, [facility] (12/16/2017 5:15 PM STRAIGHTENING ROLL OPERATOR) Component Value Ref Test Analysis Performed At [facility] Range Method Time Signature HPV Source Anal [facility] HPV High Positive (A) [facility] Risk by PCR, [facility] HPV High (NOTE) [facility] Risk by PCR, Test developed and characteristics determined by [facility] ?? [facility]. See Compliance Statement B: [employer]/ INTERPRETIVE INFORMATION: HPV by PCR, [facility] This test amplifies DNA of 14 high-risk HPV types (16, 18, 3 1, 33, ?? 35, 39, 45, 51, 52, 56, 58, 59, 66, and 68) associated with ?? cervical cancer and its precursor lesions. Sensitivity may b e ?? affected by specimen collection methods, stage of infection, and ?? the presence of interfering substances. Results should be ?? interpreted in conjunction with other available laboratory a nd ?? clinical data. A negative high-risk HPV result does not excl ude ?? the presence of other high-risk HPV types, the possibility o f ?? future cytologic abnormalities, underlying CIN2-3, or cancer . This test is intended for medical purposes only and is not v alid ?? for the evaluation of suspected sexual abuse or for other fo rensic ?? purposes. HPV testing should not be used for screening or ?? management of atypical squamous cells of undetermined signif icance ?? (ASCUS) in women under age 21. [address] [facility] [place] [address] www.[email or web address], Jean Claude Gold MD, Lab. Director Specimen Anatomical Collection Method Collection Time Receive d Time (Source) Location / / Volume Laterality 12/16/2017 5:15 PM 8 5:16 STRAIGHTENING ROLL OPERATOR PM STRAIGHTENING ROLL OPERATOR Narrative [facility] - 12/20/2017 5:[address] Performed by [employer], [address] [place] [id number] Gayatri Lr APRN, CNP LAB_1 Performing Organization Address City/[facility]/ZIP Code Phon e Number [facility] [phone] Pap Test, Anal (12/16/2017 5:13 PM STRAIGHTENING ROLL OPERATOR) Component Value Ref Test Analysis Performed At [facility] gist Range Method Time Signature Cytology (NOTE) [facility] Sash Repairer Cytology Report LABORATORI ES Patient Name: CRISTIANA CASTILLO Taken: 12/16/2017 Received: 12/17/2017 Reported: 12/25/2017 Physician(s): GAYATRI LR ?Source of Specimen Liquid diagnostic Pap (Anal): ?Specimen Adequacy ?Satisfactory for evaluation. ??Transition zone sampled . ? Final Cytologic Interpretation/Result NEGATIVE FOR INTRAEPITHELIAL LESION OR MALIGNANCY (NILM) ?? *Electronically Signed Out By* ? JO Randhawa ChB YAMILETH Bowman (ASCP) ? Microscopic Description Microscopic examination is performed. [facility] Department of Pathology [address] [place] [address] ??[id number] Specimen Anatomical Collection Method Collection Time Receive d Time (Source) Location / / Volume Laterality 12/16/2017 5:13 PM 8 6:00 STRAIGHTENING ROLL OPERATOR PM STRAIGHTENING ROLL OPERATOR Gayatri Lr APRN, CNP LAB PATHOLOGY Performing Organization Address City/[facility]/ZIP Code Phon e Number [facility] [phone] documented in this encounter Visit Diagnoses Diagnosis Routine general medical examination at [facility] care facility - Primary Routine general medical examination at a health care facility S/P hysterectomy Acquired absence of both cervix and uter us Asymptomatic HIV infection (HRC) Asymptomatic human immunodeficiency viru s (HIV) infection status Mild intermittent asthma without complic ation (HRC) Unspecified asthma Decreased hearing of both ears Asymptomatic HIV infection (HRC) Asymptomatic human immunodeficiency viru s (HIV) infection status Routine general medical examination at [facility] care facility Routine general medical examination at a health care facility documented in this encounter Care Teams Truck Rental Manager Relationship Specialty Start Date End Date Gayatri Lr, MARQUES, DIRECT CARE PROVIDER PCP - General Nurse Practitioner 12/01/17 04/23/21 [address] [place] [address] documented as of this encounter
--- OUTSIDE RECORDS SUMMARY | 2021-11-06 20:43 | XMS_ITS | Encounter Summary ---
:1975 Author Organization [facility] Address [address] [place] [address] Care Team Providers Name Role Phone Anabell Fisher DO Primary Care Provider Encounter Details Date Type Department Care Team Description 02/20/2017 Telephone [facility] Anabell Cheatham DO [address] [place], [place] [address] [place] [address] [phone] (Wo rk) Social History Tobacco Use Types Packs/Day Years Used Date Smoking Tobacco: Never Smokeless Tobacco: Never Alcohol Use Standard Drinks/Week Comments Yes 7 (1 standard drink = 0.6 oz pure alcoho l) Alcohol Habits Answer Date Recorded How often do you have a drink containing 4 or more times a w [place] 02/01/2020 alcohol? How many drinks containing alcohol [...] on filedocumented in this encounter Care Teams Measuring Machine Tender Relationship Specialty Start Date End Date Anabell Fisher DO PCP - General Family Practice 02/14/16 11/30/17 [address] [place] [address] documented as of this encounter
--- OUTSIDE RECORDS SUMMARY | 2021-11-06 20:43 | XMS_ITS | Encounter Summary ---
:1975 Author Organization [employer] Address [address] [place] [address] Care Team Providers Name Role Phone Natalia Anabell Sy OLIVERA Primary Care Provider Reason for Visit Reason Comments Refill Encounter Details Date Type Department Care Team Description 01/20/2017 Refill [facility] Mishel Sharp MD [facility] [address] [facility] [place] [place] [address] Social History Tobacco Use Types Packs/Day Years Used Date Smoking Tobacco: Never Smokeless Tobacco: Never Alcohol Use Standard Drinks/Week Comments Yes 7 (1 standard drink = 0.6 oz pure alcoho l) Alcohol Habits Answer Date Recorded How often do you have a drink containing 4 or more times a w habematolel 02/01/2020 alcohol? How many drinks containing alcohol do you have Not asked on a typical day when you are drinking? How often do you have six or more drinks on one Not asked occasion? Comment: Not asked Sex Assigned at Date Recorded Not on file documented as of this encounter Nursing Notes Sari Clay RN - 01/23/2017 10:00 AM CST BP Readings from Last 1 Encounters: 09/25/16 120/82 Date of last pap: 07/20/15 ??? Pap Test, Routine Last IN [facility] visit: 06/25/16. The pt was seen for breast pain. The control was not prescribed byOB/RUMPER. Called pt. She states the original rx came from Dr. Lorenzo 03/28/15. Per office visit note: 2. History of hysterectomy/BSO secondary to endometriosis - advised to start using HRT for bone health. Script for HRT patch provided. Refilled per standing order. Sari Clay RN F PAYROLL CLERK Lisandra Orona - 01/23/2017 9:02 AM CST Pharmacy faxed a second request. F PAYROLL CLERK Mary Rosales RN - 01/21/2017 10:57 AM CST Patient has not been seen by Dr. Sharp, and has not been seen at [facility] IN [facility] for over a year. Will send to [facility] IN [facility], because patient was seen there on 06/25/16. Mary Rosales RN F PAYROLL CLERK documented in this encounter Plan of Treatment Not on filedocumented as of this encounter Visit Diagnoses Not on filedocumented in this encounter Care Teams Podopediatrician Relationship Specialty Start Date End Date Anabell Fisher DO PCP - General Family Practice 02/14/16 11/30/17 [address] [place] [address] documented as of this encounter
--- OUTSIDE RECORDS SUMMARY | 2021-11-06 20:43 | XMS_ITS | Encounter Summary ---
:1975 Author Organization [employer] Address [address] [place] [address] Care Team Providers Name Role Phone Natalia Anabell Dan DO Primary Care Provider Reason for Visit Reason Comments INJURY, HAND surface injury, and some harris ited ROM Encounter Details Date Type Department Care Team Description 08/06/2017 Office Visit [facility], Kristi Powell, Lacer ation of left hand without foreign body, initial encounter (Primary Dx); Medicine MD Mild intermittent asthma wit hout complication [address] [place], [place] [address] Social History Tobacco Use Types Packs/Day Years Used Date Smoking Tobacco: Never Smokeless Tobacco: Never Alcohol Use Standard Drinks/Week Comments Yes 7 (1 standard drink = 0.6 oz pure alcoho l) Alcohol Habits Answer Date Recorded How often do you have a drink containing 4 or more times a w [place] 02/01/2020 alcohol? How many drinks containing alcohol do you have Not asked on a typical day when you are drinking? How often do you have six or more drinks on one Not asked occasion? Comment: Not asked Sex Assigned at Date Recorded Not on file documented as of this encounter Last Filed Vital Signs Vital Sign Reading Time Taken Comments Blood Pressure 109/77 08/06/2017 2:18 PM CDT Pulse 71 08/06/2017 2:18 PM CDT Temperature 36.6 ??C (97.9 ??F) 08/06/2017 2:18 PM CDT Respiratory Rate 20 08/06/2017 2:18 PM CDT Oxygen Saturation - - Inhaled Oxygen Concentration - - Weight 58.2 kg (128 lb 6.4 oz) 08/06/2017 2:18 PM CDT Height - - Body Mass Index 19.96 06/25/2016 8:46 AM CDT documented in this encounter Patient Instructions Patient InstructionsKristi Nieves MD - 08/06/2017 2:20 PM CDT Take cephalexin Take fluconazole if needed Keep wound open to air 10-30 minutes 2-3 times a day Thank you, Kristi Nieves MD [facility] [phone] Careline: [phone] or [phone] ([facility] [phone]) documented in this encounter Progress Notes Kristi Nieves MD - 08/06/2017 2:20 PM CDT Historical: Chief Complaint Patient presents with ??? INJURY, HAND surface injury, and some limited ROM Other Symptoms Description: 08/04/17 DOI, and she was working in the basement with her and had an accident with a drill. How long have you had the symptoms? 2 day(s) How frequent are your symptoms: on/off How often do you have these symptoms? daily or more frequent What seems to trigger or make symptoms worse? N/A What seems to make symptoms better? wrapping with slight compression, antibacterial ointment. On 08/04/17, while she was holding up a plastic sheet on a home construction project, her accidentally pushed the drill into the area between her left thumb and index finger The drill caught her glove which twisted up, so he had to revers the drill to remove it She noted pain and bleeding of the affected area, but no blood spurting She rinsed the wound with water, used a sterile pad and other treatments above Yesterday the pain had improved Today, she noted yellow drainage from the wound She has noted no fever or chills She has difficulty approximating thumb and index finger due to pain History includes asymptomatic HIV infection treated with Genvoya, and asymptomatic exercise-induced asthma I have personally reviewed the patient's allergies, medications and past medical history in detail and updated the patient record as necessary. Observed: BP 109/77 Pulse 71 Temp 97.9 ??F (36.6 ??C) (Oral) Resp 20 Wt 128 lb 6.4 oz (58.2 kg) BMI 19.96 kg/m2 Ext: left hand - two slightly tender <1 cm superficial abrasions of skin between thumb and index finger, with ragged skin of surrounding area, no warmth or drainage noted. Pulses - radial and ulnar normal and symmetric Assessment/Plan: (S61.412A) Laceration of left hand without foreign body, initial encounter (primary encounter diagnosis) Plan: cephalexin (KEFLEX) 500 MG capsule for early infection and/or prophylaxis in this HIV+ individual, fluconazole (DIFLUCAN) 150 MG tablet (she gets vaginal yeast infections once a month which she treats with OTC medication) (J45.20) Mild intermittent asthma without complication (HRC) Plan: Asthma Management Plan (AMP), Asthma Control Test Please see orders and patient instructions Kristi Nieves MD documented in this encounter Nursing Notes Kristi Nieves MD - 08/06/2017 2:20 PM CDT rewrap wound documented in this encounter Plan of Treatment Not on filedocumented as of this encounter Visit Diagnoses Diagnosis Laceration of left hand without foreign body, initial encounter - Primary Mild intermittent asthma without complic ation (HRC) Unspecified asthma documented in this encounter Care Teams Wreath And Garland Maker Relationship Specialty Start Date End Date Anabell Fisher DO PCP - General Family Practice 02/14/16 11/30/17 [address] [place] [address] documented as of this encounter
--- OUTSIDE RECORDS SUMMARY | 2021-11-06 20:43 | XMS_ITS | Encounter Summary ---
:1975 Author Organization [facility] Address [address] [place] [address] [place] [address] Care Team Providers Name Role Phone Anabell Fisher DO Primary Care Provider Reason for Visit Reason Comments Refill Encounter Details Date Type Department Care Team Description 04/22/2017 Refill [place] [facility] and Roxy Diane MD Refill Gynecology [address] [place] [address] [place], [place] [address] [phone] Social History Tobacco Use Types Packs/Day Years Used Date Smoking Tobacco: Never Smokeless Tobacco: Never Alcohol Use Standard Drinks/Week Comments Yes 7 (1 standard drink = 0.6 oz pure alcoho l) Alcohol Habits Answer Date Recorded How often do you have a drink containing 4 or more times a w [place] 02/01/2020 alcohol? How many drinks containing alcohol [...] on filedocumented in this encounter Care Teams Air Brake Rigger Relationship Specialty Start Date End Date Anabell Fisher DO PCP - General Family Practice 02/14/16 11/30/17 [address] [place], [place] [address] documented as of this encounter
--- OUTSIDE RECORDS SUMMARY | 2021-11-06 20:43 | XMS_ITS | Encounter Summary ---
:1975 Author Organization [facility] Address [address] [place] [address] Care Team Providers Name Role Phone Anabell Fisher DO Primary Care Provider Reason for Visit Reason Comments Refill Encounter Details Date Type Department Care Team Description 02/23/2017 Refill [facility] [address] Chante Hicks MD Refill Infectious Disease [address] [place] [address] [place] [address] [phone] Social History Tobacco Use Types Packs/Day Years Used Date Smoking Tobacco: Never Smokeless Tobacco: Never Alcohol Use Standard Drinks/Week Comments Yes 7 (1 standard drink = 0.6 oz pure alcoho l) Alcohol Habits Answer Date Recorded How often do you have a drink containing 4 or more times a w [place] 02/01/2020 alcohol? How many drinks containing alcohol [...] on filedocumented in this encounter Care Teams Commercial Litigation Associate Relationship Specialty Start Date End Date Anabell Fisher DO PCP - General Family Practice 02/14/16 11/30/17 [address] [place] [address] documented as of this encounter
--- OUTSIDE RECORDS SUMMARY | 2021-11-06 20:43 | XMS_ITS | Encounter Summary ---
:1975 Author Organization [facility] Address [address] [place] [address] Care Team Providers Name Role Phone Mary Kay Lr APRN, CNP Primary Care Provider [phone] Reason for Visit Reason Onset Date Comments Refill Refill 01/13/2018 Encounter Details Date Type Department Care Team Description 01/11/2018 Refill [place] [facility] and Roxy Diane MD Refill; Refill Gynecology [address] [facility] [address] [place], [place] [phone] (Wo rk) Social History Tobacco Use Types Packs/Day Years Used Date Smoking Tobacco: Never Smokeless Tobacco: Never Alcohol Use Standard Drinks/Week Comments Yes 7 (1 standard drink = 0.6 oz pure alcoho l) Alcohol Habits Answer Date Recorded How often do you have a drink containing 4 or more times a w [place] 02/01/2020 alcohol? How many drinks containing alcohol do you have Not asked on a typical day when you are drinking? How often do you have six or more drinks on one Not asked occasion? Comment: Not asked Sex Assigned at Date Recorded Not on file documented as of this encounter Nursing Notes Eusebia Santiago RN - 01/15/2018 2:11 PM CST Spoke to patient and relayed Mary Kay Lr's, CHRISTA MOHAN's message. Eusebia Santiago RN HASING OFFICER Mary Kay Lr APRN, CNP - 01/15/2018 1:15 PM CST Please call patient. I am comfortable refilling her HRT. She is s/p bilateral hysterectomy and oophorectomy at age 37 fornon-malignancy. Personal and family Hx negative for breast or uterine cancer or blood clots. She had a negative diagnostic mammogram 1 year ago. I would like her to get a mammogram prior to needing further refills. Mary Kay Lr APRN, CNP 01/15/2018, 1:18 PM HASING OFFICER Liz Sarah LPN - 01/13/2018 3:37 PM CST Patient last seen in OB 06/25/16. Last OV with Mary Kay Lr APRN, CNP 12/16/17 - Mary Kay, would you be willing to prescribe estradiol patch? Please advise. Gaby Rosas LPN 01/13/2018, 3:38 PM HASING OFFICER Roxy Diane MD - 01/12/2018 3:16 PM CST PAtient needs to be seen prior to refill. Roxy Diane MD HASING OFFICER documented in this encounter Plan of Treatment Not on filedocumented as of this encounter Visit Diagnoses Not on filedocumented in this encounter Care Teams Beauty Artist Relationship Specialty Start Date End Date Mary Kay Lr, MARQUES, CHRISTA PCP - General Nurse Practitioner 12/01/17 04/23/21 [address] [place] [address] documented as of this encounter
--- OUTSIDE RECORDS SUMMARY | 2021-11-06 20:43 | XMS_ITS | Encounter Summary ---
:1975 Author Organization [facility] Address [address] [place] [address] Care Team Providers Name Role Phone Mary Kay Lr APRN, RN PSYCHIATRIC Primary Care Provider [phone] Reason for Visit Auth/Cert Specialty Diagnoses / Procedures Referred By Contact Refer red To Contact Referral ID Status Reason Start Date Expiration Date Visits Requ ested Visits Authorized [id number] 1 1 Encounter Details Date Type Department Care Team Description 01/25/2018 [facility]illary [facility] Marlyn Beard Conductive he aring loss of left ear with unrestricted hearing of right ear; Procedure [facility] L, PA-C Hyperacusis, left [address] [place] [address] [place] [address] [place], [place] [phone] Social History Tobacco Use Types Packs/Day Years Used Date Smoking Tobacco: Never Smokeless Tobacco: Never Alcohol Use Standard Drinks/Week Comments Yes 7 (1 standard drink = 0.6 oz pure alcoho l) Alcohol Habits Answer Date Recorded How often do you have a drink containing 4 or more times a w [place] 02/01/2020 alcohol? How many drinks containing [...] Name Priority Date/Time Associated Diagnosis Comme nts CT EAR WO IV CONT Routine 01/25/2018 3:31 PM Conductive hearin g Results for this ENERGY CONSERVATION TECHNICIAN loss of left ear with proced ure are in unrestricted hearing the res ults of right ear section. Hyperacusis, left documented in this encounter Results CT Ear WO IV Cont (01/25/2018 3:31 PM ENERGY CONSERVATION TECHNICIAN) Anatomical Region Laterality Modality Computed Tomography Specimen (Source) Anatomical Collection Method Collection Time Re ceived Time Location / / Volume Laterality 01/25/2018 3:31 PM ENERGY CONSERVATION TECHNICIAN Narrative 01/25/2018 8:02 PM ENERGY CONSERVATION TECHNICIAN [facility] EXAM: CT EAR WO IV CONT LOCATION: [facility] DATE/TIME: 01/25/2018 3:31 PM INDICATION: Left conductive hearing loss . Left hyperacusis x 1+ years. Rule out otosclerosis. Unrestricted right hearing COMPARISON: None TECHNIQUE: ??Routine CT of the temporal bones without contrast including dedicated thin section multiplanar reformats of each temporal bone. Dose reduction techniques were used. FINDINGS: RIGHT TEMPORAL BONE: The external audito ry canal is widely patent. The tympanic membrane is thin and intact. The ossicular chain and bony scutum are intact. There is no middle ear cavity or mastoid effu roman. The tegmen is intact. No evidence of otosclerosis. Inner ear structures including the cochlea, modiolus, semicircular canals, vestibule, and vestibular aqueduct are unremarkable.The bony carotid c anal is intact. The facial nerve canal i s of normal course and caliber. The internal auditory canal is of normal size. LEFT TEMPORAL BONE: The charge auditor y canal is widely patent. The tympanic membrane is thin and intact. The ossicular chain and bony scutum are intact. There is no middle ear cavity or mastoid effus ion. The tegmen is intact. No evidence o f otosclerosis. Inner ear structures including the cochlea, modiolus, semicircular canals, vestibule, and vestibular aqueduct are unremarkable. The bony carotid c anal is intact.The facial nerve canal is of normal course and caliber. The internal auditory canal is of normal size. OTHER: No significant paranasal sinus mu cosal disease. The visualized intracranial compartment is unremarkable. CONCLUSION: 1. ??Normal CT of the right temporal bon e. 2. ??Normal CT of the left temporal bone . Specifically, no CT evidence of otosclerosis. Procedure Note Tank Funes MD - 01/25/2018Formatt ing of this note might be different from the original. [facility] EXAM: CT EAR WO IV CONT LOCATION: [facility] DATE/TIME: 01/25/2018 3:31 PM INDICATION: Left conductive hearing loss . Left hyperacusis x 1+ years. Rule out otosclerosis. Unrestricted right hearing COMPARISON: None TECHNIQUE: Routine CT of the temporal dany jvue without contrast including dedicated thin section multiplanar reformats of each temporal bone. Dose reduction techniques were used. FINDINGS: RIGHT TEMPORAL BONE: The external audito ry canal is widely patent. The tympanic membrane is thin and intact. The ossicular chain and bony scutum are intact. There is no middle ear cavity or mastoid effusion. The tegmen is intact. No evidence of otosclerosis. Inner ear structures including the cochlea, modiolus, semicircular canals, vestibule, and vestibular aqueduct are unremarkable.The bony carotid canal is intact. The facial nerve canal is of normal course and caliber. The int ernal auditory canal is of normal size. LEFT TEMPORAL BONE: The charge auditor y canal is widely patent. The tympanic membrane is thin and intact. The ossicular chain and bony scutum are intact. There is no middle ear cavity or mastoid effusion. The tegmen is intact. No evidence of otosclerosis. Inner ear structures including the cochlea, modiolus, semicircular canals, vestibule, and vestibular aqueduct are unremarkable. The bony carotid canal is intact.The facial nerve canal is of normal course and caliber. The int ernal auditory canal is of normal size. OTHER: No significant paranasal sinus mu cosal disease. The visualized intracranial compartment is unremarkable. CONCLUSION: 1. Normal CT of the right temporal bone. 2. Normal CT of the left temporal bone. Specifically, no CT evidence of otosclerosis. Marlyn Beard PA-C RAD CT documented in this encounter Visit Diagnoses Diagnosis Conductive hearing loss of left ear with unrestricted hearing of right ear Hyperacusis, left documented in this encounter Care Teams Rotary Drill Operator Relationship Specialty Start Date End Date Mary Kay Lr, MANAGER OF PMO, RN PSYCHIATRIC PCP - General Nurse Practitioner 12/01/17 04/23/21 [address] [place] [address] documented as of this encounter
--- OUTSIDE RECORDS SUMMARY | 2021-11-06 20:43 | XMS_ITS | Encounter Summary ---
:1975 Author Organization [facility] Address [address] [place] [address] Care Team Providers Name Role Phone CongAnabell figueroa Sy DO Primary Care Provider Encounter Details Date Type Department Care Team Description 02/20/2017 Lab Visit [facility] HIV disease (C) [address] [place], [place] [address] Social History Tobacco Use Types Packs/Day Years Used Date Smoking Tobacco: Never Smokeless Tobacco: Never Alcohol Use Standard Drinks/Week Comments Yes 7 (1 standard drink = 0.6 oz pure alcoho l) Alcohol Habits Answer Date Recorded How often do you have a drink containing 4 or more times a w [place] 02/01/2020 alcohol? How many drinks containing alcohol [...] Procedure Name Priority Date/Time Associated Comments Diagnosis HIV 1 QUANTITATIVE Routine 02/20/2017 12:40 HIV disease ([facility]) Results for this PCR,VIRAL LOAD PM PRIMER POWDER BLENDER WET procedure are in the results section. CREATININE / GFR Routine 02/20/2017 12:40 HIV disease ([facility]) Re sults for this PM PRIMER POWDER BLENDER WET procedure are i n the results section. COMPLETE BLOOD Routine 02/20/2017 12:40 HIV disease ([facility]) Resu lts for this COUNT-W/DIFF PM PRIMER POWDER BLENDER WET procedure are i n the results section. BILIRUBIN, TOTAL & Routine 02/20/2017 12:40 HIV disease (HRC) Results for this DIRECT PM PRIMER POWDER BLENDER WET procedure are i n the results section. ALT (SGPT) Routine 02/20/2017 12:40 HIV disease ([facility]) Result s for this PM PRIMER POWDER BLENDER WET procedure are i n the results section. BUN Routine 02/20/2017 12:40 HIV disease ([facility]) Result s for this PM PRIMER POWDER BLENDER WET procedure are i n the results section. documented in this encounter Results HIV 1 QUANTITATIVE PCR,VIRAL LOAD (02/20/2017 12:40 PM PRIMER POWDER BLENDER WET) Component Value Ref Test Analysis Performed At [facility] Range Method Time Signature HIV Not NDET [facility] Interpretation Detected [facility] Comment: Test Performed by Real Time PCR This result has been reported to the [facility] Department of Health. HIV Copies per/ml <40 Copies/ml [facility] HIV Log Copies/ml <1.60 Log Copies/ml [facility] Specimen Anatomical Collection Method Collection Time Receive d Time (Source) Location / / Volume Laterality 02/20/2017 12:40 02/20/2017 PM PRIMER POWDER BLENDER WET 12:42 PM PRIMER POWDER BLENDER WET Narrative [facility] - 02/24/2017 9:[address] Performed at [facility], [address] [place] [id number] Mike Hicks MD LAB_1 Performing Organization Address City/State/ZIP Code Phon e Number [facility] [phone] (ABNORMAL) HEMOGRAM/PLTS/DIFF (02/20/2017 12:40 PM PRIMER POWDER BLENDER WET) [facility] Method Time Signature WBC 3.8 (L) 4.0 - [facility] 11.0 k/ul LAB[facility]ATOR[facility] RBC 4.86 4.0 - 5.2 [facility] M/ul [facility] Hemoglobin 14.1 12.0 - [facility] 16.0 g/dl LAB[facility]IES HCT 41.4 36.0 - [facility] 46.0 % LAB[facility]ATORIES MCV 85.2 80 - 100 [facility] fl [facility] MCH 29.0 26 - 34 [facility] pg [facility] MCHC 34.1 32 - 36 [facility] g/dl [facility] RDW 12.3 11.5 - [facility] 14.5 % LAB[facility] Platelets 186 150 - 450 [facility] k/ul [facility] PMN/Band 49 % [facility] Lymph 40 % [facility] [place] 6 % [facility] Eos 4 % [facility] Baso 1 % [facility] Neutrophil 1.9 1.8 - 7.7 [facility] Absolute k/ul LABOR[facility] Lymph Absolute 1.5 1.0 - 4.8 [facility] k/ul LAB[facility] [place] Absolute 0.2 0.1 - 0.7 [facility] k/ul [facility] Eos Absolute 0.2 0.0 - 0.5 [facility] k/ul [facility] Baso Absolute 0.0 0.0 - 0.2 [facility] k/ul [facility] Immature Gran 0 % [facility] Imm Gran 0.0 0 k/ul [facility] Absolute [facility] Specimen Anatomical Collection Method Collection Time Receive d Time (Source) Location / / Volume Laterality 02/20/2017 12:40 02/20/2017 PM PRIMER POWDER BLENDER WET 12:41 PM PRIMER POWDER BLENDER WET Narrative [facility] - 02/20/2017 3:[address] Performed at [address] ??[id number] Mike Hicks MD LAB_1 Performing Organization Address City/[facility] Code Phon e Number [facility] [phone] CREATININE / GFR (02/20/2017 12:40 PM PRIMER POWDER BLENDER WET) Analysis Performed At Patho logist Time Signature Creatinine 0.67 0.55 - [facility] 1.02 mg/dl LAB[facility]ATORIES GFR, Estimated >60 >60 [facility] ml/min/1.7 LAB[facility]IES 3m2 GFR, Est., If >60 >60 [facility] Black ml/min/1.7 LAB[facility]ATORIES 3m2 Specimen Anatomical Collection Method Collection Time Receive d Time (Source) Location / / Volume Laterality 02/20/2017 12:40 02/20/2017 PM PRIMER POWDER BLENDER WET 12:41 PM PRIMER POWDER BLENDER WET Narrative [facility] - 02/20/2017 3:[address] Performed at [facility], [address] [place] [address] ??[phone] Mike Hicks MD LAB_1 Performing Organization Address City/[facility] Phon e Number [facility] [phone] BILIRUBIN, TOTAL & DIRECT (02/20/2017 12:40 PM PRIMER POWDER BLENDER WET) P athologist Signature Bilirubin, 0.3 0.2 - 1.2 [facility] Total mg/dl LAB[facility]IES Bilirubin, 0.1 0.0 - 0.5 [facility] Direct mg/dl LAB[facility] Specimen Anatomical Collection Method Collection Time Receive d Time (Source) Location / / Volume Laterality 02/20/2017 12:40 02/20/2017 PM PRIMER POWDER BLENDER WET 12:41 PM PRIMER POWDER BLENDER WET Narrative [facility] - 02/20/2017 3:[address] Performed at [facility], [address] [place] [address] ??[id number] Mike Hicks MD LAB_1 Performing Organization Address [facility] Code Phon e Number [facility] [phone] ALT (SGPT) (02/20/2017 12:40 PM PRIMER POWDER BLENDER WET) P athologist Signature ALT (SGPT) 23 0 - 55 U/L [facility] Specimen Anatomical Collection Method Collection Time Receive d Time (Source) Location / / Volume Laterality 02/20/2017 12:40 02/20/2017 PM PRIMER POWDER BLENDER WET 12:41 PM PRIMER POWDER BLENDER WET Narrative [facility] - 02/20/2017 3:[address] Performed at [facility], [address] [place] [address] ??[phone] Mike Hicks MD LAB_1 Performing Organization Address City/[facility]/ZIP Code Phon e Number [facility] [phone] BUN (02/20/2017 12:40 PM PRIMER POWDER BLENDER WET) athologist Signature BUN 13 7 - 26 [facility] mg/dl Specimen Anatomical Collection Method Collection Time Receive d Time (Source) Location / / Volume Laterality 02/20/2017 12:40 02/20/2017 PM PRIMER POWDER BLENDER WET 12:41 PM PRIMER POWDER BLENDER WET Narrative [facility] - 02/20/2017 3:[address] Performed at [facility], [address] [place] [id number] Mike Hicks MD LAB_1 Performing Organization Address City/[facility]/ZIP [facility] Phon e Number [facility] [phone] documented in this encounter Visit Diagnoses Diagnosis HIV disease ([facility]) Human immunodeficiency virus [HIV] disea se documented in this encounter Care Teams Blood Or Blood Bank Technician Relationship Specialty Start Date End Date Anabell Fisher DO PCP - General Family Practice 02/14/16 11/30/17 [address] [place] [address] documented as of this encounter
--- OUTSIDE RECORDS SUMMARY | 2021-11-06 20:43 | XMS_ITS | Encounter Summary ---
:1975 Author Organization [facility] Address [address] [place] [address] Care Team Providers Name Role Phone CongAnabell figueroa DO Primary Care Provider Encounter Details Date Type Department Care Team Description 09/22/2017 Lab Visit [facility] HIV disease (HRC); [address] Screening for HIV (human imm unodeficiency virus) [place], [place] [address] Social History Tobacco Use Types Packs/Day Years Used Date Smoking Tobacco: Never Smokeless Tobacco: Never Alcohol Use Standard Drinks/Week Comments Yes 7 (1 standard drink = 0.6 oz pure alcoho l) Alcohol Habits Answer Date Recorded How often do you have a drink containing 4 or more times a w [place] 02/01/2020 alcohol? How many drinks containing alcohol [...] Name Priority Date/Time Associated Diagnosis Comme nts TREPONEMA SCREEN Routine 09/22/2017 1:09 HIV disease (HRC) Res ults for this PM CDT procedure are i n the results section. CHLAMYDIA & GC, Routine 09/22/2017 1:09 HIV disease (HR) Resu lts for this URINE (14 YEARS AND PM CDT procedur e are in OLDER) the results section. TB GOLD, QUANTIFERON Routine 09/22/2017 1:09 Screening for HIV Results for this PM CDT (human immunodeficiency proc edure are in virus) the results section. HIV 1 QUANTITATIVE Routine 09/22/2017 1:09 HIV disease ([facility]) R esults for this PCR,VIRAL LOAD PM CDT procedure are in the results section. CREATININE / GFR Routine 09/22/2017 1:09 HIV disease ([facility]) Res ults for this PM CDT procedure are i n the results section. COMPLETE BLOOD Routine 09/22/2017 1:09 HIV disease ([facility]) Resul ts for this COUNT-W/DIFF PM CDT procedure are i n the results section. T CELL RATIO Routine 09/22/2017 1:09 HIV disease ([facility]) Results for this PM CDT procedure are i n the results section. BILIRUBIN, TOTAL & Routine 09/22/2017 1:09 HIV disease ([facility]) R esults for this DIRECT PM CDT procedure are i n the results section. UA MICRO IF Routine 09/22/2017 1:09 Screening for HIV Results for this PM CDT (human immunodeficiency proc edure are in virus) the results section. HGB A1C Routine 09/22/2017 1:09 Screening for HIV Results for this PM CDT (human immunodeficiency proc edure are in virus) the results section. ALT (SGPT) Routine 09/22/2017 1:09 HIV disease ([facility]) Results for this PM CDT procedure are i n the results section. BUN Routine 09/22/2017 1:09 HIV disease ([facility]) Results for this PM CDT procedure are i n the results section. documented in this encounter Results TB Gold, Quantiferon (09/22/2017 1:09 PM CDT) Component Value Ref Test Analysis Performed At [facility] gist Range Method Time Signature TB Gold Plus, Negative NEG [facility] TB Nil 0.03 [facility] TB1 Minus Nil 0.01 [facility] TB2 Minus Nil 0.03 [facility] Mitogen Minus Nil >10.00 [facility] QFT4 (NOTE) [facility] Interpretation Nil ?TB1-Nil ?TB2-Ni l ?? Kevin-Nil ??Result ?Interpretation LABORATORIES (IU/mL)(IU/mL) ?(IU/mL) ?? (IU/mL) _ _ _ _ _ _ _ _ _ _ _ _ _ _ _ _ _ _ _ _ _ _ _ _ _ _ _ _ _ _ _ _ _ <=8.0 ??>=0.35 & ?? Any ? Any ? Positive ? M. tuberculosis ?>=25% Nil ? infection likely _ _ _ _ _ _ _ _ _ _ _ _ _ _ _ _ _ _ _ _ _ _ _ _ _ _ _ _ _ _ _ _ _ <=8.0 ??Any ?>=0.35 & ??Any ? Positive ? M .tuberculosis ? >=2 5% Nil ?infection likely _ _ _ _ _ _ _ _ _ _ _ _ _ _ _ _ _ _ _ _ _ _ _ _ _ _ _ _ _ _ _ _ _ <=8.0 ??<0.35 or ?? <0.35 or ??>=0.50 ??Negative ? M.tub erculosis ?>=0.35 & ?? >=0.35 & ? infection NOT ?<25% Nil ?? <25% Nil ? likely _ _ _ _ _ _ _ _ _ _ _ _ _ _ _ _ _ _ _ _ _ _ _ _ _ _ _ _ _ _ _ _ _ <=8.0 ??<0.35 or ?? <0.35 or ??<0.50 ??Indeterminate M.tuber culosis ?>=0.35 & ?? >=0.35 & ? infection cannot ?<25% Nil ?? <25% Nil ? be determined _ _ _ _ _ _ _ _ _ _ _ _ _ _ _ _ _ _ _ _ _ _ _ _ _ _ _ _ _ _ _ _ _ >8.0 ?? Any ?Any ? Any ?Indeterminate M .tuberculosis ?infection cannot ?be determined _ _ _ _ _ _ _ _ _ _ _ _ _ _ _ _ _ _ _ _ _ _ _ _ _ _ _ _ _ _ _ _ _ Important: Diagnosing or excluding tuberculosis disease and ?? assessing the probability of LTBI, requires a combination of ?? epidemiological, historical, medical, and diagnostic finding s that ?? should be taken into account when interpreting QFT-Plus resu lts. ?? See general guidance on the diagnosis and treatment of TB di sease ?? and LTBI ?? (https://www.cdc.gov/tb/publications/guidelines/default.htm) . The magnitude of the measured IFN-gamma level cannot be olga lidia elated ?? to stage or degree of infection, level of immune responsiven ess, or ?? likelihood for progression to active disease. A positive TB ?? response in persons who are negative to Mitogen is rare, but has ?? been seen in patients with TB disease. This indicates the IF N-gamma ?? response to TB antigens is greater than that to Mitogen, whi ch is ?? possible as the level of Mitogen does not maximally stimulat e ?? IFN-gamma production by lymphocytes. ?? Specimen Anatomical Collection Method Collection Time Receive d Time (Source) Location / / Volume Laterality 09/22/2017 1:09 PM 8 1:11 CDT PM CDT [facility] - 09/24/2017 10:41 AM CDT Performed at [facility] , [address] [place] [phone] Mike Hicks MD LAB_1 Performing Organization Address City/[facility]/ZIP Code Phon e Number [facility] [phone] (ABNORMAL) UA Micro If (09/22/2017 1:09 PM CDT) [facility] Method Time Signature Urine Color Yellow [facility] Urine Clarity Clear [facility] Sp Gr <1.005 (L) 1.005 - [facility] 1.030 [facility] Leuk Negative NEG [facility] Nitr Negative NEG [facility] pH 6.5 4.5 - 8.0 [facility] Prot Negative NEG mg/dl [facility] Gluc Negative NEG [facility] Ket Negative NEG [facility] Urob 0.2 0.2 - 1.0 [facility] EU/dl [facility] Bili Negative NEG [facility] Blood Neg/Tr NEGTR [facility] Comment Micro Not [facility] Indicated [facility] Specimen Anatomical Collection Method Collection Time Receive d Time (Source) Location / / Volume Laterality 09/22/2017 1:09 PM 8 1:11 CDT PM CDT Narrative [facility] - 09/22/2017 1:19 PM C DT Performed at [facility], [address] [place] [id number] Mike Hicks MD LAB_1 Performing Organization Address City/[facility]/ZIP Code Phon e Number [facility] [phone] Hgb A1c (09/22/2017 1:09 PM CDT) athologist Signature Hgb A1c 5.0 4.3 - 5.6 % [facility] Specimen Anatomical Collection Method Collection Time Receive d Time (Source) Location / / Volume Laterality 09/22/2017 1:09 PM 8 1:11 CDT PM CDT Narrative [facility] - 09/22/2017 6:37 PM C DT [facility]formed at [facility], [address] [place] [address] ??[phone] Mike Hicks MD LAB_1 Performing Organization Address City/[facility]/ZIP Code Phon e Number [facility] [phone] Treponema Screen (09/22/2017 1:09 PM CDT) Patholo gist Method Time Signature Treponema Non Reactive [facility] Screen Reference range: Non Reactive LABORATORIES Specimen Anatomical Collection Method Collection Time Receive d Time (Source) Location / / Volume Laterality 09/22/2017 1:09 PM 8 1:12 CDT PM CDT Narrative [facility] - 09/23/2017 10:18 AM CDT Performed at [facility], [address] [place] [phone] Mike Hicks MD LAB_1 Performing Organization Address City/[facility]/ZIP Code Phon e Number [facility] [phone] CHLAMYDIA & GC, URINE (09/22/2017 1:09 PM CDT) [facility] [employer] Method Time Signature C.trachomatis Negative NEG [facility] , Urine [facility] Comment: Test Performed by [employer] Results obtained from this source are no t FDA approved. N. Gonorrhea, Urine Negative NEG [facility] Comment: Test Performed by [employer] Results obtained from this source are no t FDA approved. Specimen Anatomical Collection Method Collection Time Receive d Time (Source) Location / / Volume Laterality 09/22/2017 1:09 PM 8 1:11 CDT PM CDT Narrative [facility] - 09/22/2017 7:31 PM C DT Performed at [facility], [address] [place] [address] ??[phone] Mike Hicks MD LAB_1 Performing Organization Address City/[facility]/ZIP Code Phon e Number [facility] [phone] (ABNORMAL) HIV 1 QUANTITATIVE PCR,VIRAL LOAD (09/22/2017 1:09 PM CDT) Component Value Ref Test Analysis Performed At [facility] [employer] Range Method Time Signature HIV Detected NDET [facility] Interpretation (A) LAB[facility]ATORIES Comment: Test Performed by Real Time PCR This result has been reported to the [facility] Department of Health. HIV Copies per/ml <40 Copies/ml [facility] HIV Log Copies/ml <1.60 Log Copies/ml [facility] Specimen Anatomical Collection Method Collection Time Receive d Time (Source) Location / / Volume Laterality 09/22/2017 1:09 PM 8 1:12 CDT PM CDT Narrative [facility] - 09/28/2017 2:50 PM C DT Performed at [facility], [address] [place] [address] ??[phone] Mike Hicks MD LAB_1 Performing Organization Address City/[facility] Phon e Number [facility] [phone] HEMOGRAM/PLTS/DIFF (09/22/2017 1:09 PM CDT) Analysis Performed At [facility] logist Time Signature WBC 4.2 4.0 - 11.0 [facility] k/ul [facility] RBC 4.42 4.0 - 5.2 [facility] M/ul [facility] Hemoglobin 13.2 12.0 - [facility] 16.0 g/dl LAB[facility] HCT 39.1 36.0 - [facility] 46.0 % LAB[facility] MCV 88.5 80 - 100 [facility] fl [facility] MCH 29.9 26 - 34 pg [facility] MCHC 33.8 32 - 36 [facility] g/dl [facility] RDW 12.3 11.5 - [facility] 14.5 % [facility] Platelets 200 150 - 450 [facility] k/ul [facility] PMN/Band 47 % [facility] Lymph 36 % [facility] [place] 10 % [facility] Eos 6 % [facility] Baso 1 % [facility] Neutrophil 2.0 1.8 - 7.7 [facility] Absolute k/ul LAB[facility] Lymph Absolute 1.5 1.0 - 4.8 [facility] k/ul [facility] [place] Absolute 0.4 0.1 - 0.7 [facility] k/ul [facility] Eos Absolute 0.2 0.0 - 0.5 [facility] k/ul [facility] Baso Absolute 0.0 0.0 - 0.2 [facility] k/ul [facility] Immature Gran 0 % [facility] Imm Gran 0.0 0 k/ul [facility] Absolute [facility] Specimen Anatomical Collection Method Collection Time Receive d Time (Source) Location / / Volume Laterality 09/22/2017 1:09 PM 8 1:11 CDT PM CDT Narrative [facility] - 09/22/2017 3:41 PM C DT Performed at [facility], [address] [place] [address] ??[phone] Mike Hicks MD LAB_1 Performing Organization Address City/[facility] Phon e Number [facility] [phone] CREATININE / GFR (09/22/2017 1:09 PM CDT) Analysis Performed At Patho logist Time Signature Creatinine 0.70 0.55 - [facility] 1.02 mg/dl LAB[facility] GFR, Estimated >60 >60 [facility] ml/min/1.7 LAB[facility] 3m2 GFR, Est., If >60 >60 [facility] Black ml/min/1.7 LABORATORIES 3m2 Specimen Anatomical Collection Method Collection Time Receive d Time (Source) Location / / Volume Laterality 09/22/2017 1:09 PM 8 1:11 CDT PM CDT Narrative [facility] - 09/22/2017 3:53 PM C DT Performed at [facility], [address] [place] [address] ??[phone] Mike Hicks MD LAB_1 Performing Organization Address [facility] Phon e Number [facility] [phone] CD4/T CELL RATIO (09/22/2017 1:09 PM CDT) P athologist Signature T3 % 76.0 62.1 - [facility] 85.0 % T3 Absolute 1,053 500 - [facility] 2,544 /ul T4 % 39.9 31.6 - [facility] 65.7 % T4 Absolute 553 337 - [facility] 1,687 /ul T8 % 36.2 10.0 - [facility] 40.0 % T8 Absolute 501 140 - 907 [facility] /ul T4/T8 Ratio 1.1 0.8 - 3.7 [facility] Specimen Anatomical Collection Method Collection Time Receive d Time (Source) Location / / Volume Laterality 09/22/2017 1:09 PM 8 1:11 CDT PM CDT Narrative [facility] - 09/23/2017 10:12 AM CDT Performed at [facility] , [address] [place] [phone] Mike Hicks MD LAB_1 Performing Organization Address [facility] Phon e Number [facility] [phone] BILIRUBIN, TOTAL & DIRECT (09/22/2017 1:09 PM CDT) P athologist Signature Bilirubin, 0.7 0.2 - 1.2 [facility] Total mg/dl [facility] Bilirubin, 0.3 0.0 - 0.5 [facility] Direct mg/dl LAB[facility] Specimen Anatomical Collection Method Collection Time Receive d Time (Source) Location / / Volume Laterality 09/22/2017 1:09 PM 8 1:11 CDT PM CDT Narrative [facility] - 09/22/2017 3:53 PM C DT Performed at [facility], [address] [place] [address] ??[phone] Mike Hicks MD LAB_1 Performing Organization Address City/[facility] Phon e Number [facility] [phone] ALT (SGPT) (09/22/2017 1:09 PM CDT) athologist [facility] ALT (SGPT) 14 0 - 55 U/L [facility] Specimen Anatomical Collection Method Collection Time Receive d Time (Source) Location / / Volume Laterality 09/22/2017 1:09 PM 8 1:11 CDT PM CDT Narrative [facility] - 09/22/2017 3:53 PM C DT Performed at [facility], [address] [place] [address] ??[phone] Mike Hicks MD LAB_1 Performing Organization Address City/[facility]/ZIP Code Phon e Number [facility] [phone] BUN (09/22/2017 1:09 PM CDT) athologist Signature BUN 11 7 - 26 [facility] mg/dl Specimen Anatomical Collection Method Collection Time Receive d Time (Source) Location / / Volume Laterality 09/22/2017 1:09 PM 8 1:11 CDT PM CDT Narrative [facility] - 09/22/2017 3:53 PM C DT Performed at [facility], [address] [place] [address] ??[phone] Mike Hicks MD LAB_1 Performing Organization Address City/[facility]/ZIP Code Phon e Number [facility] [phone] documented in this encounter Visit Diagnoses Diagnosis HIV disease (HRC) Human immunodeficiency virus [HIV] disea se Screening for HIV (human immunodeficienc y virus) Special screening examination for other specified viral diseases documented in this encounter Care Teams Agriculture Instructor Relationship Specialty Start Date End Date Anabell Fisher DO PCP - General Family Practice 02/14/16 11/30/17 [address] [place] [address] documented as of this encounter
--- OUTSIDE RECORDS SUMMARY | 2021-11-06 20:43 | XMS_ITS | Encounter Summary ---
:1975 Author [facility] Address [address], [place] [address] Care Team Providers Name Role Phone CongAnabell figueroa Sy OLIVERA Primary Care Provider Reason for Visit Reason Comments FOLLOW-UP,HIV Encounter Details Date Type Department Care Team Description 09/25/2016 Office Visit [facility] Mike Hicks Screen ing for HIV (human immunodeficiency virus) (Primary Dx); [address] T[address] Atkins MD Asymptomatic human immunodeficiency viru s (HIV) infection status (HRC) Disease [address] [place] [phone] Social History Tobacco Use Types Packs/Day Years Used Date Smoking Tobacco: Never Smokeless Tobacco: Never Alcohol Use Standard Drinks/Week Comments Yes 7 (1 standard drink = 0.6 oz pure alcoho l) Alcohol Habits Answer Date Recorded How often do you have a drink containing 4 or more times a w [place] 02/01/2020 alcohol? How many drinks containing alcohol do you have Not asked on a typical day when you are drinking? How often do you have six or more drinks on one Not asked occasion? Comment: Not asked Sex Assigned at Date Recorded Not on file documented as of this encounter Last Filed Vital Signs Vital Sign Reading Time Taken Comments Blood Pressure 120/82 09/25/2016 11:06 AM CDT Pulse 64 09/25/2016 11:06 AM CDT Temperature 36.6 ??C (97.9 ??F) 09/25/2016 11:06 AM CDT Respiratory Rate - - Oxygen Saturation - - Inhaled Oxygen Concentration - - Weight 59.9 kg (132 lb) 09/25/2016 11:06 AM CDT Height - - Body Mass Index 20.52 06/25/2016 8:46 AM CDT documented in this encounter Patient Instructions Patient InstructionsMiek Hicks MD - 09/25/2016 11:10 AM CDT Follow up in 6 months with labs prior to the visit. No labs needed today. Thank you for coming in today. Mike Hicks MD 09/25/2016 documented in this encounter Progress Notes Mike Hicks MD - 09/25/2016 11:10 AM CDT This patient comes in for an initial visit for positive HIV test. History of present illness This patient is a 41-year-old generally healthy female who required a life insurance exam which cameback with a positive test result for HIV. She went to her clinic for further evaluation where she had a positive fourth-generation HIV test, positive confirmatory test and a viral load of 38,000. She began therapy with genvoya on March 19. She states that she has not missed any doses of her treatment. She denies any side effects to this treatment. Her is taking the same treatment. Shefeels that overall she is making a good adjustment to the new diagnosis. No recent illnesses. No fevers or chills. No night sweats. She has a good appetite. No respiratory symptoms. No urinary symptoms. No diarrhea. Social history She lives in [place] with her . 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 Theyhave dogs and cats at home. She also has a horse at a different site. 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 They do not have any children. No tobacco use. She drinks a glass of wine every evening. No illegal drugs. No IV drug abuse. No recent travel. She previously has spenttime in [place], [place], [place] and [place]. She took a trip to the [place] a few years ago. 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 Patient Active Problem List Diagnosis ??? S/P hysterectomy ??? Pap test history ??? Screening for HIV (human immunodeficiency virus) ??? Asthma (HRC) Family history Her grandmother had amyotrophic lateral sclerosis. Her father is going through treatment for multiple myeloma. Her mother has depression. BP 120/82 Pulse 64 Temp 97.9 ??F (36.6 ??C) (Oral) Wt 132 lb (59.9 kg) BMI 20.52 kg/m2 Pt A, in NAD answering questions appropriately [...] immune Component Latest Ref Rng & Units 09/19/2016 T3 % 62.1 - 85.0 % 76.7 T3 Absolute 500 - 2544 /ul 852 T4 % 31.6 - 65.7 % 33.6 T4 Absolute 337 - 1687 /ul 373 T8 % 10.0 - 40.0 % 43.4 (H) T8 Absolute 140 - 907 /ul 482 T4/T8 Ratio 0.8 - 3.7 0.8 HIV Interpretation NDET Detected (A) HIV Copies per/ml Copies/ml <40 HIV Log Copies/ml Log Copies/ml <1.60 A/P 41-year-old female with recently diagnosed HIV, detected on a life insurance exam, confirmed on testing through [facility] She is tolerating treatment with genvoya well. She has obtained full viral suppression with a CD4 count of 373. She does not have any new symptoms. She will need to start on the pneumococcal vaccination. This will be done at her next visit. PLAN: Continue treatment with genvoya Follow-up in 6 months She can contact us earlier if any new problems develop Mike Hicks MD 09/25/2016 documented in this encounter Plan of Treatment Not on filedocumented as of this encounter Visit Diagnoses Diagnosis Screening for HIV (human immunodeficienc y virus) - Primary Special screening examination for other specified viral diseases Asymptomatic human immunodeficiency viru s (HIV) infection status (HRC) Asymptomatic human immunodeficiency viru s (HIV) infection status documented in this encounter Care Teams Tour Coordinator Relationship Specialty Start Date End Date Anabell Fisher DO PCP - General Family Practice 02/14/16 11/30/17 [address] [place] [address] documented as of this encounter
--- OUTSIDE RECORDS SUMMARY | 2021-11-06 20:43 | XMS_ITS | Encounter Summary ---
:1975 Author Organization [facility] Address [address], [place] [address] Care Team Providers Name Role Phone Natalia Anabell Dan DO Primary Care Provider Encounter Details Date Type Department Care Team Description 11/25/2016 Office Visit [place] Tiffanie Loyola ar fasciitis (Primary Dx); Foot and Ankle MIKE Sena Talipes cavus Surgery/Podiatry [address] [place] [address] [place] [address] [phone] Social History Tobacco Use Types Packs/Day Years Used Date Smoking Tobacco: Never Smokeless Tobacco: Never Alcohol Use Standard Drinks/Week Comments Yes 7 (1 standard drink = 0.6 oz pure alcoho l) Alcohol Habits Answer Date Recorded How often do you have a drink containing 4 or more times a w [place] 02/01/2020 alcohol? How many drinks containing alcohol do you have Not asked on a typical day when you are drinking? How often do you have six or more drinks on one Not asked occasion? Comment: Not asked Sex Assigned at Date Recorded Not on file documented as of this encounter Patient Instructions Patient InstructionsTiffanie Loyola DPM - 11/25/2016 2:20 PM CDT Images from the original note were not included. Thank you for choosing [facility]. If you have any questions or concerns, please contact us at [phone]. PLANTAR FASCIITIS What is plantar fasciitis? Plantar fasciitis is often referred to as heel spurs or heel pain. Plantar fasciitis is a very common problem that affects people of all foot shapes, age, weight and activitylevel. Pain may be in the arch or on the weight-bearing surface of the heel. The pain may come on without injury or identifiable cause. Pain is generally present when first getting out of bed in the morning or up from a seated break. What causes plantar fasciitis? The plantar fascia is a dense fibrous band of tissue that stretches across the bottom surface of the foot. The fascia helps support the foot muscles and arch. Plantar fasciitis is thought to be caused by mechanical strain or overload. Frequent walking without shoes or wearing unsupportive shoes is thought to cause structural overload and ultimately inflammation of the plantar fascia. Some people have heel spurs that can be seen on x-ray. The heel spur is actually a minor component of plantar fascitis and is largely ignored. How long will this last? Plantar fasciitis can last from one day to a lifetime. Some people get intermittent fascitis that is very short-lived. Others suffer daily for years. Excessive body weight, frequent bare foot walking, long hours on thefeet, inadequate shoes, predisposing foot structures and excessive activity such as running are all potential issues that lead to chronic and/or recurring plantar fascitis. Having plantar fasciitis means that you are forever prone to this problem and will require modification of some of the above factors. Most people seek treatment within one to four months. Healing usually requires a similar one to four month time frame. Healing time is relative to the amount of effort spent treating the problem. What can I do? The easiest solution is to stop walking around your home without shoes. Plantar fasciitis is largely a shoe problem. Shoes are either not being worn often enough or your current shoes are inadequate for your weight, foot structure or activity level. The majority of shoes on the market today are not sufficient to resist development of plantar fasciitis or to promote healing. Assume thatyour current shoes are inadequate and will need to be replaced. Even high quality shoes wear out with 6 months to one year of frequent use. Weight loss is another option. Losing ten pounds in the next two months may be enough to resolve the problem. Ice applied to the area of pain two to three times per day for ten minutes each session can be very helpful. This should continue until the problem resolves. Achilles tendon stretching is essential. Stretch multiple times daily to promote healing and to prevent recurrence in the future. What if this does not help? Medical treatments often include custom arch supports, cortisone injections, physical therapy, splints to be worn in bed, prescription medications and surgery. The home treatments listed above will be necessary regardless of these advanced medical treatments. Surgery is rarely needed but is very helpful in selected cases. Heel pain in my future? Plantar fasciitis is highly recurrent. Risk factors often continue, including return to bare foot walking, inadequate shoes, excessive body weight, excessive activities, etc. Your life style and foot structure may predispose you to recurrent plantar fasciitis. A daily prevention regimen can be very helpful. Ongoing use of shoe inserts, careful attention to appropriate shoes, daily Achilles stretching, etc. may prevent recurrence. Prompt attention at the earliest warning signsof heel pain can resolve the problem in as short as a few days. Calf and Achilles Tendon Stretches General Instructions: Stretch gently - do not bounce. Hold each stretch for at least 15 seconds. Be sure to breathe while stretching. Do each set of stretches three times a day while you are having symptoms. Do each set of stretches once a day after symptoms are relieved. 1. Towel Stretch Sit on hard surface with one leg straight out in front of you. Loop a towel around the ball of the foot and pull the towel to your body. Be sure to keep your leg straight. You should feel tension in the calf muscle of the straight leg. Repeat 3 times on each side for at least 15 seconds each. 2. Standing Calf Stretch Stand about a foot from a wall and extend one leg behind you. Keep both feet flat on the floor, toes pointed straight ahead, and the rear knee straight. Lean into the wall until you feel tension in the rear leg. Hold for at least 15 seconds. Repeat 2 times on each side. 3. Standing Achilles Tendon Stretch Get into position of Standing Calf Stretch. Lower the hips downward as you slightly bend the knee of the rear leg. Keep both feet flat on the floor and toes straight ahead. Hold for at least 15 seconds. Repeat 2 times on each side. More information on stretching? www.[employer] www.[facility] Shoe Buying Recommendations If you are experiencing foot pain or foot problems, you probably also have shoe problems. The propershoe varies depending on foot structure, activities, body weight and location of foot pain. If you do not solve your shoe problem you will not solve you foot problem. Medical treatments including injection, surgery and medications cannot overcome the trouble caused by inadequate shoes. Do not expect to find proper shoes easily or on your own. Expect a shoe buying experience consistingof an investment of your time and money in exchange for professional counseling and fit. I would recommend purchasing three new pairs of footwear. The first pair is for exercise and general daily activities. New Balance is the top shelf brand suitable for the widest variety of foot shapes and foot problems. The second pair should be a dress shoe designed for comfort and walking. I would recommend Gurmeet Ewing or similar high quality well designed brand. The third shoe is for use in your home. This should be supportive yet easy to slip on and off. Gurmeet Jules and several other shoemakers have clogs and sandals, which provide reasonable arch support, cushion and convenience. Anticipate an investment of $250-$300. The money is well worth comfortable feet. These should be your only shoes for the next few months. You can then decide whether your old shoes are worth the pain. Industrial type work will require a fourth pair of work shoes or boots. I would suggest a Kaylin orRed Wing brand work boot costing another $150. [employer] in [place], [place], [place], etc. can provide you with proper fit and selection. Do not forget about proper socks. [employer]'s carries Smartwool, which are designed for moisture control and comfort. For more information on your condition, please visit these accredited websites: [employer]le [employer]geons http://www.acfas.org [employer] Association http://www.apma.org/ [employer] [address] [place], [place] [id number] [employer] North [employer] [address] [place] [address] [employer] [address] [facility] [place] [address] [address] [place] [address] [employer] [address] [place] [address] [employer] [address] [place] [address] [employer] B[employer] [address] [place] [address] [employer] [address] [address] [place] [address] [employer] [address] [address] [place] [address] [place] [employer] [facility] [address] [place] [address] [place] [facility] Room [phone] [facility] [address] [employer] [address] [facility] [place] [address] [employer]ing [employer] [address] [place] [address] [facility] [address] [place] [address] [employer] [address] [place] [address] [employer] [address] [address] [place] [facility] [address] [facility] [address] [place] [address] [employer] [address] [place] [address] [employer] [address] [place] [address] [employer] [address] [place] [address] Nico Coy [address] [place] [address] [employer] [address] [phone] [facility] [address] [place] [address] [employer]. [address] [facility] [place] [address] [employer]ing [employer]er[employer] [address] [place] [address] [employer] [address] [place] [address] documented in this encounter Progress Notes Tiffanie Loyola, MIKE - 11/25/2016 2:20 PM CDT Subjective: Cristiana Castillo is a 41 y.o. non-diabetic female who presents for initial evaluation Chief complaint: both feet just sore and achy all the time, patient points to the whole plantar footfrom met pad to the heel Preferred name: Cristiana Blood sugar this a.m.: n/a and does not check Accompanied by: unaccompanied. 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 Negative review of systems: fever, chills, joint stiffness, limping, heartburn, rash, open wound, numbness, weakness, blood in stool, chest pain with activity, leg pain when walking, shortness of breath with activity, chronic cough, easy bleeding/bruising, excessive thirst, fatigue, depression, anxiety, swelling of ankles, back pain, painful urination and joint or muscle pain Personal medical history: HIV infection Family medical history: foot problems Other pertinent history: n/a Specific questions or requests from the provider? none Did you have X-rays taken today? no Symptoms are described as pain getting out of bed in the morning or after a period of being in mobile. This improves after the patient has been ambulatory for a period of time. Symptoms worsened after a 3 week period of working on her feet for long hours. EXAM: General Assessment: Patient is alert and fully cooperative with history and exam. No sign of emotional or physical distress is noted during the visit. Musculoskeletal: Pain is reproducible at the plantar fascial insertion point with bilateral heel exam. No localized swelling, bruising or gross deformity is noted. No evidence of Achilles insertion pain is noted and I do not find palpable evidence of bone spur. No evidence of plantar fascial lump or fibroma is noted. No evidence of localized degenerative arthritis is appreciated. No evidence of nerveinduced heel pain is appreciated on exam. No evidence of calcaneal stress fracture is appreciated. High arch foot structure is noted bilaterally. Vascular: DP and PT pulses are intact bilaterally. No significant edema or lower extremity varicosities are noted. Capillary refill and skin temperature is normal in the toes of both lower extremities.Distal extremity perfusion seems adequate. Neurologic: Lower extremity sensation is intact to light touch. I see no evidence of weakness or contracture in the lower extremities. No evidence of peripheral neuropathy or neuropathic pain is appreciated. No hypersensitivity to light touch. Integument: Skin is intact in both lower extremities without significant lesions, rash or abrasion. There is no evidence of paronychia or soft tissue infection. Assessment: 1. Plantar fasciitis bilateral Plan: Conservative cares for plantar fasciitis were discussed with the patient in clinic. They include icing 15 minutes twice a day, stretching exercises (which were demonstrated for the patient today in clinic), NSAIDs if there is no contraindication, not going barefoot even while at home, wearing good supportive shoes at all times. Further treatments would include corticosteroid injections (which harbor a small risk of rupture of the plantar fascia), custom versus [id number] orthotics, nightsplints, physical therapy with potential iontophoresis, immobilization in a Cam Walker, and less commonly a plantar fasciotomy. The patient voices understanding of these treatment options. They wish toproceed with stretching exercises 4x daily, activity modifications, avoid barefoot/use of house shoe, rolling foot on ice bottle, night splint and ibuprofen and superfeet orthotics. Patient will follow-up if not improving or worsening. Patient will call with questions or concerns. Tiffanie Loyola DPM documented in this encounter Plan of Treatment Not on filedocumented as of this encounter Visit Diagnoses Diagnosis Plantar fasciitis - Primary Plantar fascial fibromatosis Talipes cavus documented in this encounter Care Teams It Trainee Relationship Specialty Start Date End Date Anabell Fisher DO PCP - General Family Practice 02/14/16 11/30/17 [address] [place] [address] documented as of this encounter
--- OUTSIDE RECORDS SUMMARY | 2021-11-06 20:43 | XMS_ITS | Encounter Summary ---
:1975 Author [facility] Address [address], [place] [address] Care Team Providers Name Role Phone Kelli Lewis MD Primary Care Provider [phone] Encounter Details Date Type Department Care Team Description 03/02/2017 Correspondence External to External, Provid er MEDICATION PRIOR [place] [address] Social History Tobacco Use Types Packs/Day Years Used Date Smoking Tobacco: Never Smokeless Tobacco: Never Alcohol Use Standard Drinks/Week Comments Yes 7 (1 standard drink = 0.6 oz pure alcoho l) Alcohol Habits Answer Date Recorded How often do you have a drink containing 4 or more times a w [place] 02/01/2020 alcohol? How many drinks containing alcohol [...] documented as of this encounter Care Teams Marketing Consultant Relationship Specialty Start Date End Date Kelli Lewis MD PCP - General Family Practice 04/24/21 [address] [place] [address] documented as of this encounter
--- OUTSIDE RECORDS SUMMARY | 2021-11-06 20:43 | XMS_ITS | Encounter Summary ---
:1975 Author Organization [facility] Address [address] [place] [address] Care Team Providers Name Role Phone CongAnabell figueroa Sy OLIVERA Primary Care Provider Reason for Visit Reason Comments Prior Authorization For Medication Denied Encounter Details Date Type Department Care Team Description 03/03/2017 Telephone [facility] Mike Hicks Pri or Authorization For 401 Infectious Disesanam victoria MD Medication (Denied) [address] [place] [address] [place], [place] [phone] [address] Social History Tobacco Use Types Packs/Day Years Used Date Smoking Tobacco: Never Smokeless Tobacco: Never Alcohol Use Standard Drinks/Week Comments Yes 7 (1 standard drink = 0.6 oz pure alcoho l) Alcohol Habits Answer Date Recorded How often do you have a drink containing 4 or more times a w [place] 02/01/2020 alcohol? How many drinks containing alcohol do you have Not asked on a typical day when you are drinking? How often do you have six or more drinks on one Not asked occasion? Comment: Not asked Sex Assigned at Date Recorded Not on file documented as of this encounter Nursing Notes Vicky Son RN - 03/04/2017 9:24 AM CST Noted. PA denial was appealed. Vicky Son RN 03/04/2017, 9:24 AM NCIAL UNDERWRITER Mike Hicks MD - 03/04/2017 9:20 AM CST I would like to appeal. This medication is being used for malaria prophylaxis. Mike Hicks MD 03/04/2017 NCIAL UNDERWRITER Vicky Son RN - 03/03/2017 3:04 PM CST Noted. Vicky Son RN 03/03/2017, 3:04 PM NCIAL UNDERWRITER Mike Hicks MD - 03/03/2017 2:55 PM CST I will have to ask the travel clinic what they would do. Mike Hicks MD 03/03/2017 NCIAL UNDERWRITER Vicky Son RN - 03/03/2017 1:53 PM CST Carpenters Helper paged Dr. Hicks. Vicky Son RN 03/03/2017, 1:54 PM NCIAL UNDERWRITER Vicky Son RN - 03/03/2017 9:[address] Hicks: PA denied for Malarone. Reason: There are no alternatives provided. Medication is excluded from drug plan and no PA can be done. Are there any alternatives that can be ordered or do you want to appeal denial. If you want to appeal, please explain rationale for medical need. Thank you. Vicky Son RN 03/03/2017, 10:00 AM NCIAL UNDERWRITER documented in this encounter Plan of Treatment Not on filedocumented as of this encounter Visit Diagnoses Not on filedocumented in this encounter Care Teams Award Machine Operator Relationship Specialty Start Date End Date Anabell Fisher DO PCP - General Family Practice 1/5/17 10/22/18 [address] [place] [address] documented as of this encounter
--- OUTSIDE RECORDS SUMMARY | 2021-11-06 20:43 | XMS_ITS | Encounter Summary ---
:1975 Author Organization [facility] Address [address] [place] [address] Care Team Providers Name Role Phone Mary Kay Lr APRN, CLIN ASST Primary Care Provider [phone] Reason for Visit Reason Comments LAB RESULTS Encounter Details Date Type Department Care Team Description 01/11/2018 Telephone [facility] [address] Curtis Aparicio, DO LAB RESULTS Infectious Disease [address] [place] [id number] Social History Tobacco Use Types Packs/Day Years Used Date Smoking Tobacco: Never Smokeless Tobacco: Never Alcohol Use Standard Drinks/Week Comments Yes 7 (1 standard drink = 0.6 oz pure alcoho l) Alcohol Habits Answer Date Recorded How often do you have a drink containing 4 or more times a w [place] 02/01/2020 alcohol? How many drinks containing alcohol do you have Not asked on a typical day when you are drinking? How often do you have six or more drinks on one Not asked occasion? Comment: Not asked Sex Assigned at Date Recorded Not on file documented as of this encounter Nursing Notes Grace Moore - 06/23/2018 12:35 PM CDT LM for patient to return the call Grace Moore - 06/23/2018 12:09 PM CDT Patient was unaware of this appt and would like a call back from the nurse letting her know how often she needs to have this done and if she needs to sched this appt. HerRalph RN - 06/23/2018 10:05 AM CDT ID CA: Please call patient and assist in scheduling with either Dr. Aparicio, Dr. Ramsey, Tirso Cortes or Ledy Pérez for digital anorectal exam and anal pap (20 min slot). Thank you. Ralph Reddy RN 06/23/2018,10:35 AM Infectious Disease HerRalph RN - 01/11/2018 11:09 AM CST Agency Recruiter called pt and relayed provider's msg below. Pt agreed and verbalized understanding. She wishes to have appt reminder sent to her early Summer 2018. Will postpone this TE until mid June to send out reminder to call and schedule appt for anal pap repeat. Ralph Reddy RN 01/11/2018,11:10 AM Infectious Disease OR NATIONAL ACCOUNT MANAGER Ralph Reddy RN - 01/11/2018 11:09 AM CST ----- Message from Curtis Aparicio DO sent at 01/11/2018 10:57 AM SENIOR NATIONAL ACCOUNT MANAGER ----- Anal cytology results normal (negative for intraepithelial lesion). HPV continues to be positive. Recommend repeating digital anorectal exam and anal PAP in 1 year. Naheed Aparicio DO OR NATIONAL ACCOUNT MANAGER documented in this encounter Plan of Treatment Not on filedocumented as of this encounter Visit Diagnoses Not on filedocumented in this encounter Care Teams District Leader Relationship Specialty Start Date End Date Mary Kay Lr, PREDATORY ANIMAL EXTERMINATOR, CLIN ASST PCP - General Nurse Practitioner 12/01/17 04/23/21 [address] [place] [address] documented as of this encounter
--- OUTSIDE RECORDS SUMMARY | 2021-11-06 20:43 | XMS_ITS | Encounter Summary ---
:1975 Author Organization [facility] Address [address] [place] [address] Care Team Providers Name Role Phone Anabell Fisher DO Primary Care Provider Encounter Details Date Type Department Care Team Description 09/19/2016 Lab Visit [facility] ry [address] [place], [place] [address] Social History Tobacco Use Types Packs/Day Years Used Date Smoking Tobacco: Never Smokeless Tobacco: Never Alcohol Use Standard Drinks/Week Comments Yes 7 (1 standard drink = 0.6 oz pure alcoho l) Alcohol Habits Answer Date Recorded How often do you have a drink containing 4 or more times a w [place] 02/01/2020 alcohol? How many drinks containing alcohol [...] on filedocumented in this encounter Care Teams Skiver Blockers Relationship Specialty Start Date End Date Anabell Fisher DO PCP - General Family Practice 02/14/16 11/30/17 [address] [place] [address] documented as of this encounter
--- OUTSIDE RECORDS SUMMARY | 2021-11-06 20:43 | XMS_ITS | Encounter Summary ---
:1975 Author Organization [facility] Address [address], [place] [address] Care Team Providers Name Role Phone Anabell Fisher DO Primary Care Provider Reason for Visit Procedure/Equipment (Routine) - Incomplete Specialty Diagnoses / Procedures Referred By Contact Refer red To Contact Diagnoses Breast pain Cruz Person, Procedures MM US Breast Bilat [facility] [address] [place] [address] Referral ID Status Reason Start Date Expiration Date Visits V isits Requested Authorized [id number] Incomplete 06/25/2016 09/24/2017 1 1 Encounter Details Date Type Department Care Team Description 06/26/2016 Imaging [facility] Cruz Person, Breast pain [address] [facility] [place] [address] Social History Tobacco Use Types Packs/Day Years [...] as of this encounter Visit Diagnoses Diagnosis Breast pain Mastodynia documented in this encounter Care Teams Program Aide Relationship Specialty Start Date End Date Anabell Fisher DO PCP - General Family Practice 02/14/16 11/30/17 [address] [place] [address] documented as of this encounter
--- OUTSIDE RECORDS SUMMARY | 2021-11-06 20:43 | XMS_ITS | Encounter Summary ---
:1975 Author [facility] Address [address] [address] Care Team Providers Name Role Phone Kelli Lewis MD Primary Care Provider Encounter Details Date Type Department Care Team Description 02/24/2017 Correspondence External to External, [place] [address] Social History Tobacco Use Types Packs/Day Years [...] documented as of this encounter Care Teams Head Field Hockey Coach Relationship Specialty Start Date End Date Kelli Lewis MD PCP - General Family Practice 04/24/21 [address] [place] [address] documented as of this encounter
--- OUTSIDE RECORDS SUMMARY | 2021-11-06 20:43 | XMS_ITS | Encounter Summary ---
:1975 [facility] Address [address] [address] Care Team Providers Name Role Phone Mary Kay Lr APRN, LENS MAKER Primary Care Provider [phone] Reason for Visit Reason Comments Appt. Needed Encounter Details Date Type Department Care Team Description 08/17/2017 Telephone [facility]ty Center 401 Chante Hicks MD Appt. Needed Infectious Disease [address] [place] [address] [place] [address] [phone] Social History Tobacco Use Types Packs/Day Years Used Date Smoking Tobacco: Never Smokeless Tobacco: Never Alcohol Use Standard Drinks/Week Comments Yes 7 (1 standard drink = 0.6 oz pure alcoho l) Alcohol Habits Answer Date Recorded How often do you have a drink containing 4 or more times a w [place] 02/01/2020 alcohol? How many drinks containing alcohol do you have Not asked on a typical day when you are drinking? How often do you have six or more drinks on one Not asked occasion? Comment: Not asked Sex Assigned at Date Recorded Not on file documented as of this encounter Nursing Notes Grace Moore - 08/17/2017 12:00 PM CDT Patient is sched and has been notified Vicky Son RN - 08/17/2017 11:00 AM CDT Ok to split a New Patient slot and create two revisit slots. Vicky Son RN 08/17/2017, 11:00 AM Grace Moore - 08/17/2017 9:08 AM CDT Patient had appt tomorrow with Dr Hicks she did not have her labs done but she will do that today and would like to know when she should come in nothing open until Nov. She will be out of town tomorrowso had to cancel her appt documented in this encounter Plan of Treatment Not on filedocumented as of this encounter Visit Diagnoses Not on filedocumented in this encounter Care Teams Room Service Server Relationship Specialty Start Date End Date Mary Kay Lr, SOIL SURVEYOR, LENS MAKER PCP - General Nurse Practitioner 12/01/17 04/23/21 [address] [place], [place] [id number] documented as of this encounter
--- OUTSIDE RECORDS SUMMARY | 2021-11-06 20:43 | XMS_ITS | Encounter Summary ---
:1975 Author Organization [facility] Address [address], [place] [address] Care Team Providers Name Role Phone Mary Kay Lr APRN, CHRISTA Primary Care Provider [phone] Reason for Referral Procedure/Equipment (Routine) - Incomplete Specialty Diagnoses / Procedures Referred By Contact Refer red To Contact Diagnoses Conductive hearing loss of left ear with unrestricted hearing of right ear Hyperacusis, left Marlyn Beard PA-C Procedures CT Ear WO IV Cont [address] [facility] [address] [place] [address] Referral ID Status Reason Start Date Expiration Date Visits V isits Requested Authorized [id number] Incomplete 01/06/2018 04/07/2019 1 1 TECHNICIAN Reason for Visit Reason Comments Establish Care Left ear. Decreased hearing, crackeling sounds and pain with loud noises x 6 months. No trauma , no pain other than with certian frequencies, no drainage. Consult/Transfer Care (Routine) - Closed Specialty Diagnoses / Procedures Referred By Contact Refer red To Contact Diagnoses Decreased hearing of both ears Mary Kay Lr, MARQUES, SUPERVISING CHEF [address] [place], [place] [address] Referral ID Status Reason Start Date Expiration Date Visits Requ ested Visits Authorized [id number] Closed 12/16/2017 03/17/2019 1 1 Encounter Details Date Type Department Care Team Description 01/06/2018 Office Visit Specialty Center Brown, Marlyn L, Condu ctive hearing loss of left ear with unrestricted hearing of right ear (Primary Dx); 401 Otolaryngology PA-C Hyperacusis, left [address] [place] [address] [place] [address] [place], [place] [address] Social History Tobacco Use Types Packs/Day Years [...] - Inhaled Oxygen Concentration - - Weight 58.1 kg (128 lb) 01/06/2018 1:40 PM GOLF TECHNICIAN Height 170.2 cm (5' 7) 01/06/2018 1:40 PM GOLF TECHNICIAN Body Mass Index 20.05 01/06/2018 1:40 PM GOLF TECHNICIAN documented in this encounter Progress Marlyn Guido - 01/06/2018 1:00 PM CST OTOLARYNGOLOGY CONSULT CHIEF COMPLAINT: Chief Complaint Patient presents with ??? Establish Care Left ear. Decreased hearing, crackeling sounds and pain with loud noises x 6 months. No trauma, no pain other than with certian frequencies, no drainage. I was asked to see this patient by Mary Kay Lr HPI: Cristiana Castillo is a 43 y.o. old female with history of asymptomatic HIV infection here today for evaluation of left decreased hearing and left ear pain with certain sounds x 1 year. Certain sounds, like water hitting the shower, low pitched sounds, cause left ear pain/discomfort. She describes a crackling sensation in the left ear that is uncomfortable and very loud. Left ear symptoms resolve with plugging her ear either with her finger or an earplug. She has begun carrying earplugs with her always. Left ear symptoms occur daily and sometimes multiple times a day. She denies history of ear surgery or history of recurrent ear infections. Today was the first audiogram she has beatrice an adult. She states her father has hearing loss. She does not know much about it just that he trialed hearing aids and returned them. ROS: Ear- complains of left hearing loss and mild vertigo Remainder of all 10 review of systems otherwise negative. No past medical history on file. Past Surgical History: Procedure Laterality Date ??? HYSTERECTOMY 2012 with BSO (in [place]) ??? TONSILLECTOMY No Known Allergies Outpatient Medications Prior to Visit Medication Sig Dispense Refill ??? ALBUTEROL IN Inhale 1-2 puffs every 4 hours as needed. 17 PRN ??? ALBUterol sulfate HFA 108 (90 Base) MCG/ACT inhaler Inhale 2 Puffs every 4 hours as needed for Wheezing for up to 30 days. Pharmacy may substitute albuterol HFA inhalers based on insurance 8.5 g 1 ??? estradiol (VIVELLEDOT) 0.025 MG/24HR semiweekly patch apply 1 patch to skin two times a week 24 Each 2 ??? GENVOYA [phone] MG tablet take 1 tablet by mouth daily with breakfast 30 Tab 10 ??? LORATADINE OR ??? Multiple Vitamins-Minerals (EMERGEN-C IMMUNE OR) No facility-administered medications prior to visit. Social History Socioeconomic History ??? Marital status: Spouse name: Hola ??? Number of children: 0 ??? Years of education: 6 ??? Highest education level: Not on file Social Needs ??? Financial resource strain: Not on file ??? Food insecurity - worry: Not on file ??? Food insecurity - inability: Not on file ??? Transportation needs - medical: Not on file ??? Transportation needs - non-medical: Not on file Occupational History ??? 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 Smoking status: Never Smoker ??? Smokeless tobacco: Never Used Substance and Sexual Activity ??? Alcohol use: Yes Alcohol/week: 4.2 oz Types: 7 Glasses of wine per week ??? Drug use: No ??? Sexual activity: Yes Partners: Male control/protection: Surgical Comment: hyst; since 2009 Other Topics Concern ??? Not on file Social History Narrative ??? Not on file Family History Problem Relation Age of Onset ??? Glaucoma Father ??? Hyperlipidemia Father ??? Cataract Father ??? Cancer, Other Father Mulitple Myeloma ??? Depression Mother ??? Thyroid Disorder Mother ??? Cancer, Breast Negative Family History ??? Cancer, Ovary Negative Family History ??? Cancer, Colon Negative Family History ??? Diabetes, Type II Negative Family History OBJECTIVE: Her height is 5' 7 (1.702 m) and weight is 128 lb (58.1 kg). GEN: She is a 43 y.o. female. She is awake, alert and comfortable with the examination. well developed, well nourished and in no acute distress. Voice is normal. HEAD: Normocephalic, atraumatic. EYES: Extraocular movements intact. No exophthalmos. No conjunctival redness or hemorrhage. No nystagmus. ENT: Ears: External ears normal. Bilateral ear canals are clear, TMs are clear and intact. Nose: clear Mouth: Moist mucus membranes. Normal dentition. Tongue is within normal limits without fasciculations or weakness. Buccal mucosa, oropharynx, hypopharynx with normal mucosa, no masses or lesions. Throat: tonsils are surgically absent. wnl NECK: supple and no adenopathy, no tenderness or masses palpated in parotids, submandibular glands, or thyroid. CHEST: no tachypnea, retractions or cyanosis NEURO: Alert and oriented x 3, Cranial Nerves II - XII grossly intact and Gait normal. STUDIES REVIEWED: I reviewed her audiogram that was performed today. Normal bilateral Type A tympanograms. Normal right hearing. Mild left CHL rising to normal hearing from 2-8k Hz. ASSESSMENT AND PLAN: ICD-10-CM 1. Conductive hearing loss of left ear with unrestricted hearing of right ear H90.12 CT Ear WO IV Cont 2. Hyperacusis, left H93.232 CT Ear WO IV Cont I recommended Cristiana have a ct ear with follow up with Dr. Yin after imaging. Rule out left otosclerosis. Marlyn Beard PA-C 01/06/2018, 5:29 PM TECHNICIAN documented in this encounter Plan of Treatment Not on filedocumented as of this encounter Results CT Ear WO IV Cont (01/25/2018 3:31 PM GOLF TECHNICIAN) Anatomical Region Laterality Modality Computed Tomography Specimen (Source) Anatomical Collection Method Collection Time Re ceived Time Location / / Volume Laterality 01/25/2018 3:31 PM GOLF TECHNICIAN Narrative 01/25/2018 8:02 PM GOLF TECHNICIAN [facility] RADIOLOGY EXAM: CT EAR WO IV CONT [...] of normal size. LEFT TEMPORAL BONE: The claims auditor y canal is widely patent. The [...] note might be different from the original. [facility] RADI[facility] EXAM: CT EAR WO IV CONT LOCATION: [facility] II DATE/TIME: 01/25/2018 3:31 PM INDICATION: Left conductive hearing loss . Left hyperacusis x 1+ years. Rule out otosclerosis. Unrestricted right hearing COMPARISON: None TECHNIQUE: Routine CT of the temporal dany juve without contrast including dedicated thin section multiplanar [...] of normal size. LEFT TEMPORAL BONE: The claims auditor y canal is widely patent. The [...] ear with unrestricted hearing of right ear - Primary Hyperacusis, left Conductive hearing loss of left ear with unrestricted hearing of right ear Hyperacusis, left documented in this encounter Care Teams Pony Ride Attendant Relationship Specialty Start Date End Date Mary Kay Lr, TRAIN STATION SERVER, SUPERVISING CHEF PCP - General Nurse Practitioner 12/01/17 04/23/21 [address] [place] [address] documented as of this encounter
--- OUTSIDE RECORDS SUMMARY | 2021-11-06 20:43 | XMS_ITS | Encounter Summary ---
:1975 Author [facility] Address [address], [place] [address] Care Team Providers Name Role Phone Natalia Anabell Dan DO Primary Care Provider Reason for Visit Reason Comments Prior Authorization For Medication Malarone Encounter Details Date Type Department Care Team Description 03/24/2017 Telephone Specialty Center Mike Hicks Pri or Authorization For 401 Infectious Disea se DANGELO Medication (Malar[place]) [address] [place] [address] [place], [place] [phone] Social History Tobacco Use Types Packs/Day Years Used Date Smoking Tobacco: Never Smokeless Tobacco: Never Alcohol Use Standard Drinks/Week Comments Yes 7 (1 standard drink = 0.6 oz pure alcoho l) Alcohol Habits Answer Date Recorded How often do you have a drink containing 4 or more times a w [place] 02/01/2020 alcohol? How many drinks containing alcohol do you have Not asked on a typical day when you are drinking? How often do you have six or more drinks on one Not asked occasion? Comment: Not asked Sex Assigned at Date Recorded Not on file documented as of this encounter Nursing Notes Sheree Anguiano RN - 03/30/2017 10:47 AM CST Pt. Has picked up medication from pharmacy. Will close encounter. Sheree Anguiano RN 03/30/2017, 11:12 AM K DRIVER RUBBISH COLLECTOR Ralph Reddy RN - 03/24/2017 11:06 AM CST Images from the original note were not included. Received request for medication from pharmacy. Reviewed ePA on file for this patient. ePA states payer waiting for response Please note: this medication for for Malaria prophylaxis, not HIV. PA Team, please check status of this medication. Patient is traveling to [place] on 04/04/17. Thank you. Ralph Reddy RN 03/24/2017,11:08 AM Infectious Disease K DRIVER RUBBISH COLLECTOR documented in this encounter Plan of Treatment Not on filedocumented as of this encounter Visit Diagnoses Not on filedocumented in this encounter Care Teams Customer Pricing Manager Relationship Specialty Start Date End Date Anabell Fisher DO PCP - General Family Practice 02/14/16 11/30/17 [address] [place], [place] [address] documented as of this encounter
--- OUTSIDE RECORDS SUMMARY | 2021-11-06 20:43 | XMS_ITS | Encounter Summary ---
:1975 Author Organization [facility] Address [address] [address] Care Team Providers Name Role Phone Mary Kay Lr APRN, CHRISTA Primary Care Provider [phone] Encounter Details Date Type Department Care Team Description 01/06/2018 Orders Only [facility] Specialty No Center Audiology Primary/Referring, [address] [place] [address] Social History Tobacco Use Types Packs/Day Years Used Date Smoking Tobacco: Never Smokeless Tobacco: Never Alcohol Use Standard Drinks/Week Comments Yes 7 (1 standard drink = 0.6 oz pure alcoho l) Alcohol Habits Answer Date Recorded How often do you have a drink containing 4 or more times a w [place] 02/01/2020 alcohol? How many drinks containing alcohol [...] Procedure Name Priority Date/Time Associated Comments Diagnosis AUDIOLOGY DIAGNOSTIC 01/06/2018 12:00 AM Results for this IMITATION MARBLE MECHANIC procedure are i n the results section. documented in this encounter Results AUDIOLOGY DIAGNOSTIC (01/06/2018 12:00 AM IMITATION MARBLE MECHANIC) Specimen (Source) Anatomical Location Collection Method / Collectio n Time Received Time / Laterality Volume 01/06/2018 Narrative This result has an attachment that is no t available. Phy No Primary/Referring DUMMY/OTHER/AR documented in this encounter Visit Diagnoses Not on filedocumented in this encounter Care Teams Powder Press Operator Relationship Specialty Start Date End Date Mary Kay Lr, MARQUES, WOOD MILLING MACHINE HAND PCP - General Nurse Practitioner 12/01/17 04/23/21 [address] [place] [address] documented as of this encounter
--- OUTSIDE RECORDS SUMMARY | 2021-11-06 20:43 | XMS_ITS | Encounter Summary ---
:1975 Author Organization [facility] Address [address], [place] [address] Care Team Providers Name Role Phone Natalia Anabell Dan DO Primary Care Provider Reason for Visit Procedure/Equipment (Routine) - Incomplete Specialty Diagnoses / Procedures Referred By Contact Refer red To Contact Diagnoses Breast pain Bonifacionatalia, Cruz Elliott, Procedures MM Mammogram Diag Bilat W Adelfo MM Mammogram Diag Bilat [facility] [address] [place] [address] Referral ID Status Reason Start Date Expiration Date Visits V isits Requested Authorized [id number] Incomplete 06/25/2016 09/24/2017 1 1 Encounter Details Date Type Department Care Team Description 06/26/2016 Imaging [facility] Cruz Person, Breast pain [address] [place], [place] [id number] Social History Tobacco Use Types Packs/Day Years Used Date Smoking Tobacco: Never Smokeless Tobacco: Never Alcohol Use Standard Drinks/Week Comments Yes 7 (1 standard drink = 0.6 oz pure alcoho l) Alcohol Habits Answer Date Recorded How often do you have a drink containing 4 or more times a w [place] 02/01/2020 alcohol? How many drinks containing [...] Diagnosis Comme nts MM MAMMOGRAM DIAG Routine 06/26/2016 2:09 PM Breast pain Resu lts for this BILAT W 3D ADELFO CDT procedure ar e in the results section. documented in this encounter Results MM Mammogram Diag Bilat W Adelfo (06/26/2016 2:09 PM CDT) Anatomical Region Laterality Modality Breast Bilateral Mammography Specimen (Source) Anatomical Collection Method Collection Time Re ceived Time Location / / Volume Laterality 06/26/2016 2:09 PM CDT Narrative 06/26/2016 2:14 PM CDT MM MAMMOGRAM DIAG BILAT W ADELFO: 06/26/2016 2:09 PM INDICATION: Bilateral breast tenderness COMPARISON: Baseline MAMMOGRAPHIC FINDINGS: Bilateral digital diagnostic mammograms performed. The breast tissue is extremely dense, wh ich lowers the sensitivity of mammography. The breast tissue is unrema rkable. I am not able to palpate a lesion on physical examination. Images e valuated with the assistance of CAD. Breast Tomosynthesis was used in in terpretation. IMPRESSION: ACR BI-RADS Category 1: Nega tive. Results given to the patient who should resume annual screening mammography. Procedure Note Gavin Stewart MD - 06/26/2016Forma tting of this note might be different from the original. MM MAMMOGRAM DIAG BILAT W ADELFO: 7 2:09 PM INDICATION: Bilateral breast tenderness COMPARISON: Baseline MAMMOGRAPHIC FINDINGS: Bilateral digital diagnostic mammograms performed. The breast tissue is extremely dense, wh ich lowers the sensitivity of mammography. The breast tissue is unrema rkable. I am not able to palpate a lesion on physical examination. Images e valuated with the assistance of CAD. Breast Tomosynthesis was used in in terpretation. IMPRESSION: ACR BI-RADS Category 1: Nega tive. Results given to the patient who should resume annual screening mammography. Cruz Person PASSENGER CONDUCTOR, CNM RAD LIONEL documented in this encounter Visit Diagnoses Diagnosis Breast pain Mastodynia documented in this encounter Care Teams Cpr Instructor Relationship Specialty Start Date End Date Anabell Fisher DO PCP - General Family Practice 02/14/16 11/30/17 [address] [place] [address] documented as of this encounter
--- OUTSIDE RECORDS SUMMARY | 2021-11-06 20:43 | XMS_ITS | Encounter Summary ---
:1975 Author Organization [facility] Address [address] [place] [address] Care Team Providers Name Role Phone Mary Kay Lr APRN, SCANNING SUPERVISOR Primary Care Provider [phone] Reason for Referral Medication Prior Authorization (Routine) - Closed Specialty Diagnoses / Procedures Referred By Contact Refer red To Contact Mike Hicks MD [address] [place] [address] Referral ID Status Reason Start Date Expiration Date Visits Requ ested Visits Authorized [id number] Closed INE OPERATORS Reason for Visit Reason Comments Medication Request viola castillo Encounter Details Date Type Department Care Team Description 01/08/2018 Telephone Specialty Center Mike Hicks, Med ication Request 401 Infectious Disea se DANGELO (viola castillo) 401 [facility]. [address] [place] [address] [place], [place] [phone] (Wo rk) Social History Tobacco Use Types Packs/Day Years Used Date Smoking Tobacco: Never Smokeless Tobacco: Never Alcohol Use Standard Drinks/Week Comments Yes 7 (1 standard drink = 0.6 oz pure alcoho l) Alcohol Habits Answer Date Recorded How often do you have a drink containing 4 or more times a w [place] 02/01/2020 alcohol? How many drinks containing alcohol do you have Not asked on a typical day when you are drinking? How often do you have six or more drinks on one Not asked occasion? Comment: Not asked Sex Assigned at Date Recorded Not on file documented as of this encounter Nursing Notes Sheree Anguiano RN - 01/11/2018 10:24 AM CST Pt. Notified. Sheree Anguiano RN 01/11/2018, 10:26 AM INE OPERATORS Vicky Son RN - 01/08/2018 10:22 AM CST Will elisa for Dr. Hicks to advise on message below. Pharmacy of choice is pended. Vicky Son RN01/08/2018, 10:22 AM INE OPERATORS Grace Moore - 01/08/2018 9:[address] Kc note on 10-20-17 he is going to fill rx's for this patient for her travel she will needzithro, and malaron INE OPERATORS documented in this encounter Plan of Treatment Not on filedocumented as of this encounter Visit Diagnoses Not on filedocumented in this encounter Care Teams Freelance Translator Relationship Specialty Start Date End Date Mary Kay Lr, OVERAGE SHORTAGE AND DAMAGE CLERK, SCANNING SUPERVISOR PCP - General Nurse Practitioner 12/01/17 04/23/21 [address] [place] [address] documented as of this encounter
--- OUTSIDE RECORDS SUMMARY | 2021-11-06 20:43 | XMS_ITS | Encounter Summary ---
:1975 Author Organization [facility] Address [address] [place] [address] Care Team Providers Name Role Phone Anabell Fisher DO Primary Care Provider Encounter Details Date Type Department Care Team Description 06/26/2016 Notes/Orders Specialty Center Mike Hicks, HIV disease ([facility]) 401 Infectious MD (Primary Dx) Disease [address] [place] [id number] Social History Tobacco Use Types Packs/Day Years Used Date Smoking Tobacco: Never Smokeless Tobacco: Never Alcohol Use Standard Drinks/Week Comments Yes 7 (1 standard drink = 0.6 oz pure alcoho l) Alcohol Habits Answer Date Recorded How often do you have a drink containing 4 or more times a w [place] 02/01/2020 alcohol? How many drinks containing alcohol do you have Not asked on a typical day when you are drinking? How often do you have six or more drinks on one Not asked occasion? Comment: Not asked Sex Assigned at Date Recorded Not on file documented as of this encounter Plan of Treatment Not on filedocumented as of this encounter Visit Diagnoses Diagnosis HIV disease ([facility]) - Primary Human immunodeficiency virus [HIV] disea se documented in this encounter Care Teams Cabinet Professional Relationship Specialty Start Date End Date Anabell Fisher DO PCP - General Family Practice 02/14/16 11/30/17 [address] [place] [address] documented as of this encounter
--- OUTSIDE RECORDS SUMMARY | 2021-11-06 20:43 | XMS_ITS | Encounter Summary ---
:1975 Author Organization [facility] Address [address] [place] [address] Care Team Providers Name Role Phone Mary Kay Lr MOTOR MAN, TRAIN MASTER Primary Care Provider [phone] Reason for Visit Reason Comments HEARING PROBLEM Encounter Details Date Type Department Care Team Description 01/06/2018 Office Visit [facility] Verenice Garcia Conducti ve hearing Specialty Center CHARLENE loss of left ear with Audiology [address] unrestricted hearing [address] [place], [place] of right [place] ([place] [id number] Dx) [phone] Social History Tobacco Use Types Packs/Day Years [...] documented as of this encounter Progress Notes Verenice Garcia AU.D. - 01/06/2018 12:30 PM CST Subjective: The [facility] and an Audiogram was ordered. Ear canals are free of any wax and debris. The patient reports concerns with her hearing. Stated she is saying What? more than she would like. Also said on occasion loud sounds crackle on her left side. Objective: Pure tone audiogram and bone conduction testing is completed. The audiogram demonstrates low frequency conductive hearing loss, left. Speech retail center receptionist thresholds were obtained at 15 dBHL, right and 25 dBHL, left. Word recognition was 100% at 40 dBHL, right and 100% at 40 dBHL, left. Tympanograms show normal ear canal volume, compliance and width, bilaterally. Results are reviewed with the patient. Assessment: Type A tympanograms. Low frequency CHL, left. SRT's were in good agreement with pure tone averages. Word recognition was excellent, bilaterally. Plan: Follow up with ENT. CHARLENE Wayne EAR POWERPLANT MECHANIC HELPER documented in this encounter Plan of Treatment Not on filedocumented as of this encounter Visit Diagnoses Diagnosis Conductive hearing loss of left ear with unrestricted hearing of right ear - Primary documented in this encounter Care Teams Respiratory Practitioner Relationship Specialty Start Date End Date Mary Kay Lr, MOTOR MAN, TRAIN MASTER PCP - General Nurse Practitioner 12/01/17 04/23/21 [address] [place], [place] [address] documented as of this encounter
--- OUTSIDE RECORDS SUMMARY | 2021-11-06 20:43 | XMS_ITS | Encounter Summary ---
:1975 Author Organization [facility] Address [address] [place] [address] Care Team Providers Name Role Phone Anabell Fisher DO Primary Care Provider Encounter Details Date Type Department Care Team Description 09/19/2016 Lab Visit [facility] ry HIV disease ([facility]C); [address] Screening for HIV (human imm unodeficiency virus) [place], [place] [address] Social History Tobacco Use Types [...] Associated Diagnosis Comme nts TREPONEMA SCREEN Routine 09/19/2016 10:30 HIV disease (HRC) Re sults for this AM CDT procedure are i n the results section. CHLAMYDIA & GC, Routine 09/19/2016 10:30 HIV disease (HRC) Res ults for this URINE (14 YEARS AND AM CDT procedur e are in OLDER) the results section. TB GOLD, QUANTIFERON Routine 09/19/2016 10:30 Screening for HI V Results for this AM CDT (human immunodeficiency proc edure are in virus) the results section. HIV 1 QUANTITATIVE Routine 09/19/2016 10:30 HIV disease ([facility]) Results for this PCR,VIRAL LOAD AM CDT procedure are in the results section. LIPID PANEL AND Routine 09/19/2016 10:30 HIV disease ([facility]) Res ults for this DIRECT LDL(IF AM CDT procedure are in NEEDED) the results section. CREATININE / GFR Routine 09/19/2016 10:30 HIV disease ([facility]) Re sults for this AM CDT procedure are i n the results section. COMPLETE BLOOD Routine 09/19/2016 10:30 HIV disease ([facility]) Resu lts for this COUNT-W/DIFF AM CDT procedure are i n the results section. T CELL RATIO Routine 09/19/2016 10:30 HIV disease ([facility]) Result s for this AM CDT procedure are i n the results section. BILIRUBIN, TOTAL & Routine 09/19/2016 10:30 HIV disease ([facility]) Results for this DIRECT AM CDT procedure are i n the results section. UA MICRO IF Routine 09/19/2016 10:30 Screening for HIV Result s for this AM CDT (human immunodeficiency proc edure are in virus) the results section. HGB A1C Routine 09/19/2016 10:30 Screening for HIV Result s for this AM CDT (human immunodeficiency proc edure are in virus) the results section. ALT (SGPT) Routine 09/19/2016 10:30 HIV disease ([facility]) Result s for this AM CDT procedure are i n the results section. GLUCOSE - FASTING > Routine 09/19/2016 10:30 HIV disease ([facility]) Results for this 8 HRS FASTING AM CDT procedure are in the results section. BUN Routine 09/19/2016 10:30 HIV disease ([facility]) Result s for this AM CDT procedure are i n the results section. documented in this encounter Results TB Gold, Quantiferon (09/19/2016 10:30 AM CDT) Component Value Ref Test Analysis Performed At [facility] Range Method Time Signature TB Gold, Negative NEG [facility] Quantiferon [facility] TB NIL Value 0.07 IU/mL [facility] TB Ag-NIL <0.01 IU/mL [facility] Value [facility] Mitogen-NIL >10.00 IU/mL [facility] Value [facility] TB Gold (NOTE) [facility] Interpreta. Nil ? TB-Nil ? Kevin-N il ?? Quantiferon-TB ? Interpretation LABORATORIES _ _ _ _ _ _ _ _ _ _ _ _ _ _ _ _ _ _ _ _ _ _ _ _ _ _ _ _ _ _ _ _ _ ?? <=8.0 ?? >=0.35 & ?Any ?Positive ? M .tuberculosis ? >=25% Nil ? infection likely _ _ _ _ _ _ _ _ _ _ _ _ _ _ _ _ _ _ _ _ _ _ _ _ _ _ _ _ _ _ _ _ _ <=8.0 ?? <0.35 ?>=0.5 ?Negative ? M. tuberculosis ? infection NOT likely _ _ _ _ _ _ _ _ _ _ _ _ _ _ _ _ _ _ _ _ _ _ _ _ _ _ _ _ _ _ _ _ _ _ <=8.0 ??>=0.35 & ? >=0.5 ?Negative ? M. tuberculosis ?<25% Nil ?infection NOT likely _ _ _ _ _ _ _ _ _ _ _ _ _ _ _ _ _ _ _ _ _ _ _ _ _ _ _ _ _ _ _ _ _ ?? <=8.0 ?? <0.35 ? <0.5 ? Indeterminate ?Res ults are ? indeterminate ? for antigen ? responsiveness _ _ _ _ _ _ _ _ _ _ _ _ _ _ _ _ _ _ _ _ _ _ _ _ _ _ _ _ _ _ _ _ _ <=8.0 ?? >0.35 & ? <0.5 ? Indeterminate ?Resu lts are ? <25% Nil ?indeterminate ? for antigen ? responsiveness _ _ _ _ _ _ _ _ _ _ _ _ _ _ _ _ _ _ _ _ _ _ _ _ _ _ _ _ _ _ _ _ _ _ ?? >8.0 ?Any ? Any ?Indeterminate ? Results are ? indeterminate ? for antigen ? responsiveness Note: Diagnosis or excluding tuberculosis disease, and asses sing the probability of Latent Tuberculosis Infection (LTBI), req uires a combination of epidemiological, historical, medical, and ? ? diagnostic findings should be taken into account when interpreting QuantiFERON-TB Gold results. ??See general on t he ?? diagnosis and treatment of TB disease and ?? LBTI:(http://www.cdc.gov/nchstp/tb/). The magnitude of the measured IFN-gamma level cannot be olga ldiia elated to stage or degree of infection, level of immune responsiven ess or likelihood for progression to active disease. A positive TB response in persons who are negative to mitoge n is rare, but has been seen in patients with TB disease. This indicates the IFN-g response to TB Antigen is greater t mehta that to mitogen, which is possible as the level of mitogen d oes not maximally stimulate IFN-gamma production by lymphocytes. Specimen Anatomical Collection Method Collection Time Receive d Time (Source) Location / / Volume Laterality 09/19/2016 10:30 09/19/2016 AM CDT 10:32 AM CDT Narrative [facility] - 09/22/2016 1:19 PM C DT Performed at [facility] , [address] [id number] Mike Hicks MD LAB_1 Performing Organization Address City/State/ZIP Code Phon e Number [facility] [phone] (ABNORMAL) UA Micro If (09/19/2016 10:30 AM CDT) [facility] Method Time Signature Urine Color Yellow [facility] Urine Clarity Clear [facility] Sp Gr <1.005 (L) 1.005 - [facility] 1.030 [facility] Leuk Negative NEG [facility] Nitr Negative NEG [facility] pH 6.0 4.5 - 8.0 [facility] Prot Negative NEG mg/dl [facility] Gluc Negative NEG [facility] Ket Negative NEG [facility] Urob 0.2 0.2 - 1.0 [facility] EU/dl [facility] Bili Negative NEG [facility] Blood Neg/Tr NEGTR [facility] Comment Micro Not [facility] Indicated [facility] Specimen Anatomical Collection Method Collection Time Receive d Time (Source) Location / / Volume Laterality 09/19/2016 10:30 09/19/2016 AM CDT 10:32 AM CDT Narrative [facility] - 09/19/2016 4:11 PM C DT Performed at [facility], [address] [place] [address] [place] [address] Mike Hicks MD LAB_1 Performing Organization Address City/State/ZIP Code Phon e Number [facility] [phone] Hgb A1c (09/19/2016 10:30 AM CDT) athologist Signature Hgb A1c 4.9 4.3 - 5.6 % [facility] Specimen Anatomical Collection Method Collection Time Receive d Time (Source) Location / / Volume Laterality 09/19/2016 10:30 09/19/2016 AM CDT 10:32 AM CDT Narrative [facility] - 09/19/2016 3:50 PM C DT Performed at [facility], [address] [place] [address], [place], [place] ??[id number] Mike Hicks MD LAB_1 Performing Organization Address City/State/ZIP Code Phon e Number [facility] [phone] Treponema Screen (09/19/2016 10:30 AM CDT) [facility] gist Method Time Signature Treponema Non Reactive [facility] Screen Reference range: Non Reactive LABORATORIES Specimen Anatomical Collection Method Collection Time Receive d Time (Source) Location / / Volume Laterality 09/19/2016 10:30 09/19/2016 AM CDT 10:33 AM CDT Narrative [facility] - 09/22/2016 11:35 AM CDT Performed at [facility], [address] [place] [phone] Mike Hicks MD LAB_1 Performing Organization Address City/State/ZIP Code Phon e Number [facility] [phone] LIPID PANEL AND DIRECT LDL(IF NEEDED) (09/19/2016 10:30 AM CDT) Patholo gist Method Time Signature Hours Fasting 0 hours [facility] Cholesterol 152 0 - 199 [facility] mg/dl [facility] Triglyceride 77 0 - 149 [facility] mg/dl [facility] HDL 45 >40 mg/dl [facility] LDL, Calc. 92 0 - 129 [facility] mg/dl [facility] Non HDL Chol, 107 mg/dl [facility] Calc [facility] Specimen Anatomical Collection Method Collection Time Receive d Time (Source) Location / / Volume Laterality 09/19/2016 10:30 09/19/2016 AM CDT 10:32 AM CDT Narrative [facility] - 09/19/2016 3:48 PM C DT Performed at [address] ??[phone] Mike Hicks MD LAB_1 Performing Organization Address [facility] Phon e Number [facility] [phone] GLUCOSE - FASTING > 8 HRS FASTING (V77.1) (09/19/2016 10:30 AM CDT) P athologist Signature Hours Fasting 0 hours [facility] Glucose 82 70 - 100 [facility] mg/dl [facility] Specimen Anatomical Collection Method Collection Time Receive d Time (Source) Location / / Volume Laterality 09/19/2016 10:30 09/19/2016 AM CDT 10:32 AM CDT Narrative [facility] - 09/19/2016 3:48 PM C DT Performed at [address] ??[phone] Mike Hicks MD LAB_1 Performing Organization Address City/[facility] Phon e Number [facility] [phone] CHLAMYDIA & GC, URINE (09/19/2016 10:30 AM CDT) Patholo gist Method Time Signature C.trachomatis Negative NEG [facility] , Urine [facility] Comment: Test Performed by Plate Sensitizer Mediated Amplification Results obtained from this source are no t FDA approved. N. Gonorrhea, Urine Negative NEG [facility] Comment: Test Performed by Plate Sensitizer Mediated Amplification Results obtained from this source are no t FDA approved. Specimen Anatomical Collection Method Collection Time Receive d Time (Source) Location / / Volume Laterality 09/19/2016 10:30 09/19/2016 AM CDT 10:32 AM CDT Narrative [facility] - 09/19/2016 7:05 PM C DT Performed at [facility], [address] [place] [phone] Mike Hicks MD LAB_1 Performing Organization Address [facility] Phon e Number [facility] [phone] (ABNORMAL) HIV 1 QUANTITATIVE PCR,VIRAL LOAD (09/19/2016 10:30 AM CDT) Component Value Ref Test Analysis Performed At [facility] Global Filmdemic Range Method Time Signature HIV Detected NDET [facility] Interpretation (A) LAB[facility]ATORIES Comment: Test Performed by Real Time PCR This result has been reported to the [facility] Department of Health. HIV Copies per/ml <40 Copies/ml [facility] HIV Log Copies/ml <1.60 Log Copies/ml [facility] Specimen Anatomical Collection Method Collection Time Receive d Time (Source) Location / / Volume Laterality 09/19/2016 10:30 09/19/2016 AM CDT 10:32 AM CDT Narrative [facility] - 09/22/2016 4:24 PM C DT Performed at [facility], [address] [place] [phone] Mike Hicks MD LAB_1 Performing Organization Address [facility] Phon e Number [facility] [phone] (ABNORMAL) HEMOGRAM/PLTS/DIFF (09/19/2016 10:30 AM CDT) [facility] Global Filmdemic Method Time Signature WBC 3.8 (L) 4.0 - [facility] 11.0 k/ul [facility] RBC 4.62 4.0 - 5.2 [facility] M/ul [facility] Hemoglobin 13.2 12.0 - [facility] 16.0 g/dl [facility] HCT 39.5 36.0 - [facility] 46.0 % LAB[facility] MCV 85.5 80 - 100 [facility] fl [facility] MCH 28.6 26 - 34 [facility] pg [facility] MCHC 33.4 32 - 36 [facility] g/dl [facility] RDW 12.3 11.5 - [facility] 14.5 % [facility] Platelets 182 150 - 450 [facility] k/ul [facility] PMN/Band 44 % [facility] Lymph 33 % [facility] Dawes 9 % [facility] Eos 13 % [facility] Baso 1 % [facility] Neutrophil 1.7 (L) 1.8 - 7.7 [facility] Absolute k/ul [facility] Lymph Absolute 1.2 1.0 - 4.8 [facility] k/ul [facility] Dawes Absolute 0.3 0.1 - 0.7 [facility] k/ul [facility] Eos Absolute 0.5 0.0 - 0.5 [facility] k/ul [facility] Baso Absolute 0.0 0.0 - 0.2 [facility] k/ul [facility] Immature Gran 0 % [facility] Imm Gran 0.0 0 k/ul [facility] Absolute [facility] Specimen Anatomical Collection Method Collection Time Receive d Time (Source) Location / / Volume Laterality 09/19/2016 10:30 09/19/2016 AM CDT 10:32 AM CDT Narrative [facility] - 09/19/2016 3:39 PM C DT Performed at [facility], [address] [place] [phone] Mike Hicks MD LAB_1 Performing Organization Address [facility] Phon e Number [facility] [phone] CREATININE / GFR (09/19/2016 10:30 AM CDT) Analysis Performed At [facility] Time Signature Creatinine 0.79 0.55 - [facility] 1.02 mg/dl LAB[facility] GFR, Estimated >60 >60 [facility] ml/min/1.7 LAB[facility] 3m2 GFR, Est., If >60 >60 [facility] Black ml/min/1.7 LAB[facility]ATORIES 3m2 Specimen Anatomical Collection Method Collection Time Receive d Time (Source) Location / / Volume Laterality 09/19/2016 10:30 09/19/2016 AM CDT 10:32 AM CDT Narrative [facility] - 09/19/2016 3:48 PM C DT Performed at [facility], [address] [place] [address] ??[phone] Mike Hicks MD LAB_1 Performing Organization Address [facility] Phon e Number [facility] [phone] (ABNORMAL) CD4/T CELL RATIO (09/19/2016 10:30 AM CDT) [facility] Time Signature T3 % 76.7 62.1 - [facility] 85.0 % [facility] T3 Absolute 852 500 - [facility] 2,544 /ul LAB[facility] T4 % 33.6 31.6 - [facility] 65.7 % [facility] T4 Absolute 373 337 - [facility] 1,687 /ul LAB[facility] T8 % 43.4 (H) 10.0 - [facility] 40.0 % [facility] T8 Absolute 482 140 - 907 [facility] /ul [facility] T4/T8 Ratio 0.8 0.8 - 3.7 [facility] Specimen Anatomical Collection Method Collection Time Receive d Time (Source) Location / / Volume Laterality 09/19/2016 10:30 09/19/2016 AM CDT 10:32 AM CDT Narrative [facility] - 09/20/2016 1:33 PM C DT Performed at [facility] , [address] [place] [id number] Mike Hicks MD LAB_1 Performing Organization Address City/[facility] Code Phon e Number [facility] [phone] BILIRUBIN, TOTAL & DIRECT (09/19/2016 10:30 AM CDT) athologist Signature Bilirubin, 0.3 0.2 - 1.2 [facility] Total mg/dl [facility] Bilirubin, 0.2 0.0 - 0.5 [facility] Direct mg/dl [facility] Specimen Anatomical Collection Method Collection Time Receive d Time (Source) Location / / Volume Laterality 09/19/2016 10:30 09/19/2016 AM CDT 10:32 AM CDT Narrative [facility] - 09/19/2016 3:48 PM C DT Performed at [facility], [address] [place] [address] ??[phone] Mike Hicks MD LAB_1 Performing Organization Address City/State/ZIP Code Phon e Number [facility] [phone] ALT (SGPT) (09/19/2016 10:30 AM CDT) athologist Signature ALT (SGPT) 20 0 - 55 U/L [facility] Specimen Anatomical Collection Method Collection Time Receive d Time (Source) Location / / Volume Laterality 09/19/2016 10:30 09/19/2016 AM CDT 10:32 AM CDT Narrative [facility] - 09/19/2016 3:48 PM C DT Performed at [facility], [address] [place] [phone] Mike Hicks MD LAB_1 Performing Organization Address [facility] Phon e Number [facility] [phone] BUN (09/19/2016 10:30 AM CDT) athologist Signature BUN 14 7 - 26 [facility] mg/dl Specimen Anatomical Collection Method Collection Time Receive d Time (Source) Location / / Volume Laterality 09/19/2016 10:30 09/19/2016 AM CDT 10:32 AM CDT Narrative [facility] - 09/19/2016 3:48 PM C DT Performed at [facility], [address] [place] [phone] Mike Hicks MD LAB_1 Performing Organization Address [facility] Phon e Number [facility] [phone] documented in this encounter Visit Diagnoses Diagnosis HIV disease ([facility]C) Human immunodeficiency virus [HIV] disea se Screening for HIV (human immunodeficienc y virus) Special screening examination for other specified viral diseases documented in this encounter Care Teams Public Policy Mediator Relationship Specialty Start Date End Date Anabell Fisher DO PCP - General Family Practice 02/14/16 11/30/17 [address] [place] [address] documented as of this encounter
--- OUTSIDE RECORDS SUMMARY | 2021-11-06 20:43 | XMS_ITS | Encounter Summary ---
:1975 Author Organization [facility] Address [address], [place] [address] Care Team Providers Name Role Phone DeepjordanMary Kay APRN, SCHOOL ADMINISTRATOR Primary Care Provider [phone] Reason for Visit Reason Comments Follow-up CT done Encounter Details Date Type Department Care Team Description 01/25/2018 Office Visit Specialty [facility] Jabari Yin MD Conductive hearing loss [address] of left ear with [address] [place], [place] [phone] right ear (Primary Dx) [phone] Social History Tobacco Use Types Packs/Day Years [...] documented as of this encounter Progress Notes Berenice Yin MD - 01/25/2018 3:40 PM CST OTOLARYNGOLOGY FOLLOW UP CHIEF COMPLAINT: Chief Complaint Patient presents with ??? Follow-up CT done HPI: Cristiana Castillo is a 43 y.o. old female here today referred to me by my colleague Marlyn Beard PA-C for evaluation of left conductive hearing loss. We appreciate the CT scan ordered by Marlyn that she underwent today. We plan to review results today. The patient noticed the hearing loss in the left ear about 1 year ago. 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 She admits to intermittent episodes of brief tinnitus. PMH: She recalls possibly having a few ear infections as a child. Family hx: Father has hearing loss. REVIEW OF SYSTEMS: GENERAL/CONSTITUTIONAL: The patient denies fever, weakness, or unexplained weight loss HEENT: EYES: No visual changes, no nystagmus, no conjunctivitis, no discharge or watery eyes. EARS: No drainage, positive for hearing changes, tinnitus, no pain, no pressure, or vertigo. NOSE: No epistaxis, no anosmia, no sneezing, or sinus pain or pressure. MOUTH/THROAT: No hoarseness, no pharyngitis, no odynophagia, no dysphagia,no blood in the saliva, nomouth lesions/ulcers, no dental caries. NECK: No pain, no swelling, no enlarge gland CARDIOVASCULAR: The patient denies chest pain, irregular heartbeats, sudden changes in heartbeat or palpitation. RESPIRATORY: The patient denies chronic dry cough, coughing up blood, repeated pneumonias, or night sweats. (positive for hx of asthma) GASTROINTESTINAL: The patient denies decreased appetite, nausea, vomiting, vomiting blood or coffee ground material. MUSCULOSKELETAL: The patient denies arm, buttock, thigh or calf cramps. SKIN: The patient denies easy bruising. Denies any skin lesions. NEUROLOGIC: The patient denies Muscle spasm, loss of consciousness, sensitivity or pain in the handsand feet. HEMATOLOGIC/LYMPHATIC: The patient denies anemia, bleeding tendency or clotting tendency. Past Medical History: Diagnosis Date ??? Asthma ([facility]C) Past Surgical History: Procedure Laterality Date ??? HYSTERECTOMY 2011 with B[place] (in [place]) ??? TONSILLECTOMY No Known Allergies Outpatient Medications Prior to Visit Medication Sig Dispense Refill ??? ALBUTEROL IN Inhale 1-2 puffs every 4 hours as needed. 17 PRN ??? atovaquone-proguanil (MALARONE) 250-100 MG tablet Take 1 Tablet by mouth daily for 18 days. 16 Tablet 0 ??? azithromycin (ZITHROMAX) 500 MG tablet Take 1 Tablet by mouth daily. 3 Tablet 0 ??? estradiol (VIVELLEDOT) 0.025 MG/24HR semiweekly patch Apply 1 Patch to skin two times a week. 8 Each 1 ??? GENVOYA [phone] MG tablet take 1 tablet by mouth daily with breakfast 30 Tab 10 ??? LORATADINE OR ??? Multiple Vitamins-Minerals (EMERGEN-C IMMUNE OR) No facility-administered medications prior to visit. Social History Tobacco Use ??? Smoking status: Never Smoker ??? Smokeless tobacco: Never Used Substance Use Topics ??? Alcohol use: Yes Alcohol/week: 4.2 oz Types: 7 Glasses of wine per week ??? Drug use: No Family History Problem Relation Age of Onset ??? Glaucoma Father ??? Hyperlipidemia Father ??? Cataract Father ??? Cancer, Other Father Mulitple Myeloma ??? Depression Mother ??? Thyroid Disorder Mother ??? Cancer, Breast Negative Family History ??? Cancer, Ovary Negative Family History ??? Cancer, Colon Negative Family History ??? Diabetes, Type II Negative Family History OBJECTIVE: There were no vitals taken for this visit. GENERAL: Alert & oriented times 3. Well developed, well nourished, no apparent distress. Normal ability to communicate. EYES: Equal round reactive to light and accommodation. Extraocular motions intact. No nystagmus EAR: Both pinnae, ear canals are normal. Both tympanic membrane are clear and intact NECK: Supple RESPIRATORY: Respiration even, chest symmetrical with bilateral expansion. NEUROLOGICAL:Alert and oriented x 3 and Cranial Nerves II - XII grossly intact FACIAL STRENGTH: Bilateral symmetrical facial nerve motion bilateral House Brackman scale I/ SKIN: no cutaneous lesions of concern. SALIVARY: Salivary glands normal in size and location. PSYCHIATRIC: Normal, full affect. Audiogram shows: I personally reviewed audiogram dated 01/06/2018 with patient which shows: Left mild conductive hearing loss for the low frequencies. Bilateral tympanogram Type A (Normal) TUNING FORKS: Jones Laterized to left;Rinne': Air conduction > bone conduction both ears IMAGING: I personally reviewed CT scan obtained today with patient which shows: My impression: Normal anatomy. On left side there is a questionable area of demineralization in location of stapes, possible early otosclerosis. DIAGNOSIS: ICD-10-CM 1. Conductive hearing loss of left ear with unrestricted hearing of right ear H90.12 ASSESSMENT AND PLAN: 43 y.o. female with left mild conductive hearing loss for the low frequencies in patient with benignear exam. On my impression of CT scan there is a questionable area of demineralization in location of left stapes bone. Agree with Marlyn Beard PA-C, Cristiana's audiometric testing and clinical history are suggestive of left early otosclerosis. She is counseled that there are options for hearing rehabilitation if her hearing loss progresses: hearing aid versus surgical repair. At this point, since her hearing loss is very mild we recommend conservative observation. If she would have a progression in the left conductive hearing loss, the patient may consider stapes surgery or a hearing aid. The patient will follow up if she notices a decrease in her hearing. All questions and concerns were addressed and patient agrees with this plan. Disposition: Return if symptoms worsen or fail to improve, for worse hearing. This document serves as a record of services personally performed by Berenice Yin MD. It was created on his behalf by Odilia Steele, a trained medical staff assistant. The creation of this record is based on the scribe's personal observations and the provider's statements to them. This document has been juan m cked and approved by the attending provider. Odilia Steele 01/25/2018, 3:32 PM Berenice Yin MD 01/25/2018, 3:48 PM CAID BILLING SPECIALIST documented in this encounter Plan of Treatment Not on filedocumented as of this encounter Visit Diagnoses Diagnosis Conductive hearing loss of left ear with unrestricted hearing of right ear - Primary documented in this encounter Care Teams Fast Food Team Member Relationship Specialty Start Date End Date Mary Kay Lr, DAY CARE HOME MOTHER, SCHOOL ADMINISTRATOR PCP - General Nurse Practitioner 12/01/17 04/23/21 [address] [place] [address] documented as of this encounter
--- OUTSIDE RECORDS SUMMARY | 2021-11-06 20:43 | XMS_ITS | Encounter Summary ---
:1975 Author Organization [facility] Address [address] [place] [address] Care Team Providers Name Role Phone Gabrielrip Anabell Sy DO Primary Care Provider Reason for Visit Reason Comments FOLLOW-UP,HIV Encounter Details Date Type Department Care Team Description 10/20/2017 Office Visit Specialty Center Mike Hicks omatic human 401 Infectious T, immunodeficiency virus Disease [address] (HIV) infection status [address] [place], [place] (HRC) (Primary Dx) [place] [address] [phone] Social History Tobacco Use Types Packs/Day Years Used Date Smoking Tobacco: Never Smokeless Tobacco: Never Alcohol Use Standard Drinks/Week Comments Yes 7 (1 standard drink = 0.6 oz pure alcoho l) Alcohol Habits Answer Date Recorded How often do you have a drink containing 4 or more times a w [place] 02/01/2020 alcohol? How many drinks containing alcohol do you have Not asked on a typical day when you are drinking? How often do you have six or more drinks on one Not asked occasion? Comment: Not asked Sex Assigned at Date Recorded Not on file documented as of this encounter Last Filed Vital Signs Vital Sign Reading Time Taken Comments Blood Pressure 106/71 10/20/2017 8:42 AM CDT Pulse 60 10/20/2017 8:42 AM CDT Temperature 36.6 ??C (97.8 ??F) 10/20/2017 8:42 AM CDT Respiratory Rate 12 10/20/2017 8:42 AM CDT Oxygen Saturation - - Inhaled Oxygen Concentration - - Weight 58.5 kg (129 lb) 10/20/2017 8:42 AM CDT Height - - Body Mass Index 20.05 06/25/2016 8:46 AM CDT documented in this encounter Patient Instructions Patient InstructionsMike Hicks MD - 10/20/2017 8:30 AM CDT Follow up in 6 months. No labs needed today. We will give your flu shot today. Thank you for coming in today. Mike Hicks MD 10/20/2017 documented in this encounter Progress Notes Mike Hicks MD - 10/20/2017 8:30 AM CDT This patient comes in for an initial visit for positive HIV test. History of present illness This patient is a 42-year-old generally healthy female who required a life insurance exam which cameback with a positive test result for HIV. She went to her clinic for further evaluation where she had a positive fourth-generation HIV test, positive confirmatory test and a viral load of 38,000. She began therapy with genvoya on March 192016. She states that she has missed one dose since her last visit. She denies any side effects to this treatment. She feels that overall she is making agood adjustment to the diagnosis of HIV. She denies any illnesses since her last visit. No fevers, chills or night sweats. She has a good appetite. Her weight has been stable. No abdominal pain. She had some diarrhea yesterday, but this is unusual for her. She denies any problems with her mood. She is taking a trip to the [place] in January. She will likely be in a malaria area. Social history She lives in [place] with her . 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 Theyhave dogs and cats at home. She also has a horse at a different site. 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 They do not have any children. No tobacco use. She drinks a glass of wine every evening. No illegal drugs. No IV drug abuse. No recent travel. She previously has spenttime in [place], [place], [place] and [place]. She took a trip to the [facility] a few years ago. 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 Patient Active Problem List Diagnosis ??? S/P hysterectomy ??? Screening for cervical cancer ??? Asthma (HRC) ??? Plantar fasciitis ??? Asymptomatic HIV infection (HRC) ??? Non-seasonal allergic rhinitis due to pollen Family history Her grandmother had amyotrophic lateral sclerosis. Her father is going through treatment for multiple myeloma. Her mother has depression. ALL: NKDA BP 106/71 Pulse 60 Temp 97.8 ??F (36.6 ??C) (Oral) Resp 12 Wt 129 lb (58.5 kg) BMI 20.05 kg/m2 Pt A, in NAD answering questions [...] immune Component Latest Ref Rng & Units 09/22/2017 T3 % 62.1 - 85.0 % 76.0 T3 Absolute 500 - 2544 /ul 1053 T4 % 31.6 - 65.7 % 39.9 T4 Absolute 337 - 1687 /ul 553 T8 % 10.0 - 40.0 % 36.2 T8 Absolute 140 - 907 /ul 501 T4/T8 Ratio 0.8 - 3.7 1.1 HIV Interpretation NDET Detected (A) HIV Copies per/ml Copies/ml <40 HIV Log Copies/ml Log Copies/ml <1.60 A/P 42-year-old female with HIV, detected on a life insurance exam, confirmed on testing through [facility] She is tolerating treatment with genvoya well. She has obtained full viral suppression with a CD4 count of 553. No recent infections. For her travel to the [facility], I have asked her to call in to our clinic in December. I will give malaria prophylaxis with malarone for 16 days. She will let me know if she needs azithromycin in case of diarrhea--they may have some remaining from last year. She will receive her influenza vaccination today. PLAN: Continue treatment with genjocelyneeric recs as above--they will call in February for prescriptions Influenza vaccination today Follow-up in 6 months Mike Hicks MD 10/20/2017 documented in this encounter Plan of Treatment Not on filedocumented as of this encounter Visit Diagnoses Diagnosis Asymptomatic human immunodeficiency viru s (HIV) infection status (HRC) - Primary Asymptomatic human immunodeficiency viru s (HIV) infection status documented in this encounter Care Teams Salon Sales Consultant Relationship Specialty Start Date End Date Anabell Fisher DO PCP - General Family Practice 02/14/16 11/30/17 [address] [place] [address] documented as of this encounter
--- OUTSIDE RECORDS SUMMARY | 2021-11-06 20:43 | XMS_ITS | Encounter Summary ---
:1975 Author Organization [facility] Address [address] [place] [address] Care Team Providers Name Role Phone Gabrielgianlucafawn Anabell Sy DO Primary Care Provider Reason for Visit Reason Comments FOLLOW-UP,HIV Encounter Details Date Type Department Care Team Description 02/24/2017 Office Visit Specialty Center Mike Hicks omatic human 401 Infectious T, immunodeficiency virus Disease [address] (HIV) infection status [address] [place], [place] (HRC) (Primary Dx) [place] [address] [phone] Social History Tobacco Use Types Packs/Day Years Used Date Smoking Tobacco: Never Smokeless Tobacco: Never Alcohol Use Standard Drinks/Week Comments Yes 7 (1 standard drink = 0.6 oz pure alcoho l) Alcohol Habits Answer Date Recorded How often do you have a drink containing 4 or more times a w [place] 02/01/2020 alcohol? How many drinks containing alcohol do you have Not asked on a typical day when you are drinking? How often do you have six or more drinks on one Not asked occasion? Comment: Not asked Sex Assigned at Date Recorded Not on file documented as of this encounter Last Filed Vital Signs Vital Sign Reading Time Taken Comments Blood Pressure 116/78 02/24/2017 10:02 AM LIQUID SUGAR MELTER Pulse 71 02/24/2017 10:02 AM LIQUID SUGAR MELTER Temperature - - Respiratory Rate - - Oxygen Saturation - - Inhaled Oxygen Concentration - - Weight 61.7 kg (136 lb) 02/24/2017 9:45 AM LIQUID SUGAR MELTER Height - - Body Mass Index 21.14 06/25/2016 8:46 AM CDT documented in this encounter Patient Instructions Patient InstructionsMike Hicks MD - 02/24/2017 9:30 AM CST Follow up in 6 months. Continue your same treatment. For your trip, we will give a typhoid vaccine today. For malaria take malarone 2 days prior to your trip, every day during your trip and for 7 days afterfor malaria prevention with food. If you develop diarrhea (more than 3 loose stools a day), then you can take azithromycin 1 tablet daily for 3 days. Thank you for coming in today. Mike Hicks MD 02/24/2017 ID SUGAR MELTER documented in this encounter Progress Notes Mike Hicks MD - 02/24/2017 9:30 AM CST This patient comes in for an initial [...] a good adjustment to the new diagnosis. She recently had a respiratory infection with sinus pressure that lasted > 1 week. She went in for evaluation. She improved with a Z-ricardo. No fevers or chills. No night sweats. She has a good appetite. No urinary symptoms. No diarrhea. She is taking a trip to [place] to do some diving at the end of March. She will be in the [facility] which is a malaria area. Social history She lives in [place] with her . 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 Theyhave dogs and cats at home. She also has a horse at a different site. 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 They do not have any children. No tobacco use. She drinks a glass of wine every evening. No illegal drugs. No IV drug abuse. No recent travel. She previously has spenttime in [place], [place], [place] and [place]. She took a trip to the [place] a few years ago. 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 Patient Active Problem List Diagnosis ??? S/P hysterectomy ??? Screening for cervical cancer ??? Screening for HIV (human immunodeficiency virus) ??? Asthma (HRC) ??? Plantar fasciitis Family history Her grandmother had amyotrophic lateral sclerosis. Her father is going through treatment for multiple myeloma. Her mother has depression. BP 116/78 Pulse 71 Wt 136 lb (61.7 kg) BMI 21.14 kg/m2 Pt A, in NAD answering questions [...] immune Component Latest Ref Rng & Units 02/20/2017 WBC 4.0 - 11.0 k/ul 3.8 (L) RBC 4.0 - 5.2 M/ul 4.86 Hemoglobin 12.0 - 16.0 g/dl 14.1 HCT 36.0 - 46.0 % 41.4 MCV 80 - 100 fl 85.2 MCH 26 - 34 pg 29.0 MCHC 32 - 36 g/dl 34.1 RDW 11.5 - 14.5 % 12.3 Platelets 150 - 450 k/ul 186 PMN/Band % 49 Lymph % 40 [place] % 6 EOS % 4 Baso % 1 PMN Absolute 1.8 - 7.7 k/ul 1.9 Lymph Absolute 1.0 - 4.8 k/ul 1.5 [place] Absolute 0.1 - 0.7 k/ul 0.2 Eos Absolute 0.0 - 0.5 k/ul 0.2 Baso Absolute 0.0 - 0.2 k/ul 0.0 Immature Gran % 0 Imm Gran Absolute 0 k/ul 0.0 HIV Interpretation NDET Not Detected HIV Copies per/ml Copies/ml <40 HIV Log Copies/ml Log Copies/ml <1.60 A/P 42-year-old female with HIV, detected on a life insurance exam, confirmed on testing through [facility] She is tolerating treatment with genvoya well. She has obtained full viral suppression with a CD4 count of 332. She has recently gotten over a respiratory infection. For her travel to [place], I have discussed her case with the travel clinic. I will give malaria prophylaxis with malarone. She will receive a typhoid IM vaccine. She will have azithromycin in case ofdiarrhea. PLAN: Continue treatment with genvoya Travel recs as above Follow-up in 6 months Mike Hicks MD 02/24/2017 ID SUGAR MELTER documented in this encounter Nursing Notes Nancy Antoine - 02/24/2017 9:30 AM CST Prior Authorization was Denied for Atovaquone-Proguanil by [facility] There are no alternatives provided. Medication is excluded from drug plan and no PA can be done. To Appeal 1. Click Appeal 2. Enter any relevant/helpful information in the Note to Payer box 3. Click Accept To change medication 1. Click Change Med 2. Order new medication 3. Click QuickNote to document 4. Route to: swimming pool maintenance supervisor If you want the patient to pay [id number] 1. Click QuickNote 2. Document this option 3. Flag for ANIMAL ASSISTED THERAPIST/MANAGER INSTRUMENTATION to notify patient Nancy Humble Antoine ID SUGAR MELTER Vicky Son RN - 02/24/2017 9:30 AM CST New TE sent to Dr. Hicks for review and advise. ID SUGAR MELTER Nancy Antoine - 02/24/2017 9:30 AM CST Per denial: This exclusion is based on the pharmacy plan design, not medical necessity or the prescription drug list. No PA can be done. This medication is not covered. ID SUGAR MELTER documented in this encounter Plan of Treatment Not on filedocumented as of this encounter Visit Diagnoses Diagnosis Asymptomatic human immunodeficiency viru s (HIV) infection status (HRC) - Primary Asymptomatic human immunodeficiency viru s (HIV) infection status documented in this encounter Care Teams Oil Well Cable Tool Driller Relationship Specialty Start Date End Date Anabell Fisher DO PCP - General Family Practice 02/14/16 11/30/17 [address] [place] [address] documented as of this encounter
--- OUTSIDE RECORDS SUMMARY | 2021-11-06 20:43 | XMS_ITS | Encounter Summary ---
:1975 Author Organization [facility] Address [address] [address] Care Team Providers Name Role Phone Mary Kay Lr APRN, CNP Primary Care Provider [phone] Encounter Details Date Type Department Care Team Description 12/16/2017 Notes/Orders [facility] Mary Kay Lr, [facility] ptomatic HIV Medicine CHRISTA MOHAN infection (HRC) [address] [place], [place] [address] [place], [place] [phone] [address] Social History Tobacco Use Types Packs/Day Years Used Date Smoking Tobacco: Never Smokeless Tobacco: Never Alcohol Use Standard Drinks/Week Comments Yes 7 (1 standard drink = 0.6 oz pure alcoho l) Alcohol Habits Answer Date Recorded How often do you have a drink containing 4 or more times a w [place] 02/01/2020 alcohol? How many drinks containing alcohol do you have Not asked on a typical day when you are drinking? How often do you have six or more drinks on one Not asked occasion? Comment: Not asked Sex Assigned at Date Recorded Not on file documented as of this encounter Progress Notes Mary Kay Lr APRN, CNP - 12/16/2017 5:13 PM CST Awaiting pap result. Mary Kay Lr APRN, CNP 12/21/2017, 8:14 AM TLINE JOINER OVERLOCK documented in this encounter Plan of Treatment Not on filedocumented as of this encounter Procedures Procedure Name Priority Date/Time Associated Diagnosis Comme nts HPV, HIGH RISK, Routine 12/16/2017 5:15 PM Asymptomatic HIV Re sults for this ANAL WAISTLINE JOINER OVERLOCK infection (HRC) procedure ar jordan in the results section. documented in this encounter Results (ABNORMAL) Human Papillomavirus (HPV), High Risk by PCR, [facility] (12/16/2017 5:15 PM WAISTLINE JOINER OVERLOCK) Component Value Ref Test Analysis Performed At [facility] Range Method Time Signature HPV Source Anal [facility] HPV High Positive (A) [facility] Risk by PCR, [facility] HPV High (NOTE) [facility] Risk by PCR, Test developed and characteristics determined by [facility] ?? [facility]. See Compliance Statement B: [facility]/CS INTERPRETIVE INFORMATION: HPV by PCR, [facility] This [...] in women under age 21. [address] [place], [place] [id number] [email or web address], Jean Claude Gold MD, Lab. Director Specimen Anatomical Collection Method Collection Time Receive d Time (Source) Location / / Volume Laterality 12/16/2017 5:15 PM 8 5:16 WAISTLINE JOINER OVERLOCK PM WAISTLINE JOINER OVERLOCK Narrative [facility] - 12/20/2017 5:[address] Performed by [facility], [address], [place] [address] Mary Kay Lr APRN, CNP LAB_1 Performing Organization Address City/State/ZIP Code Phon e Number [facility] [phone] documented in this encounter Visit Diagnoses Diagnosis Asymptomatic HIV infection (HRC) Asymptomatic human immunodeficiency viru s (HIV) infection status documented in this encounter Care Teams Food Expeditor Relationship Specialty Start Date End Date Mary Kay Lr, CHRISTA MOHAN PCP - General Nurse Practitioner 12/01/17 04/23/21 [address] [place] [address] documented as of this encounter
--- OUTSIDE RECORDS SUMMARY | 2021-11-06 20:43 | XMS_ITS | Encounter Summary ---
:1975 Author Organization [facility] Address [address] [address] Care Team Providers Name Role Phone Deepjordan Mary Kay Pitt APRN, MINK SLICER Primary Care Provider [phone] Reason for Visit Reason Comments Refill GENVOYA [phone] MG ta blet [Pharmacy Med Name: Genvoya Oral Tablet [phone] MG] Encounter Details Date Type Department Care Team Description 02/01/2018 Refill Specialty Center 401 Chante Sharma MD Refill ([facility] [phone] MG tablet 401 [facility] [place] [address] [Pharmacy Med Name: [place] [address] Genvoya Oral Tablet [id number] [id number] 00-10 MG]) Social History Tobacco Use Types Packs/Day Years Used Date Smoking Tobacco: Never Smokeless Tobacco: Never Alcohol Use Standard Drinks/Week Comments Yes 7 (1 standard drink = 0.6 oz pure alcoho l) Alcohol Habits Answer Date Recorded How often do you have a drink containing 4 or more times a w [place] 02/01/2020 alcohol? How many drinks containing alcohol do you have Not asked on a typical day when you are drinking? How often do you have six or more drinks on one Not asked occasion? Comment: Not asked Sex Assigned at Date Recorded Not on file documented as of this encounter Nursing Notes Arlene Rose - 02/23/2018 2:21 PM CST Prior Authorization for Genvoya has been approved through [employer] insurance. Approval is granted for/until 02/18/2019 with approval number na. Faxed the approval to the pharmacy with a note to call the patient when the medication is ready. MIXER Arlene Rose - 02/18/2018 10:47 AM CST Manual appeal form required by [employer]. Gave forms to [facility] to complete and send. MIXER Arlene Rose - 02/11/2018 2:18 PM CST Prior Authorization was Denied for Genvoya by [employer] There are alternatives available--please see full denial fax within link under Prior Authorization Additional Information tab for complete criteria The alternative medications are: Triumeq, Tivicay, plus Truvada, Isentress plus Truvada. or Prezista plus Norvir plus Truvada To change to an alternative medication: 1. Click Change Med 2. Order the new medication 3. Click QuickNote to document 4. Route to: maintenance worker swimming pool To Appeal 1. Click Appeal 2. Enter any relevant/helpful information in the Note to Payer box 3. Click Accept Arlene Wiggins - [facility] [place] MIXER Arlene Rose - 02/03/2018 11:25 AM CST No Pa needed. Genvoya covered 30# for 30 days. MIXER Interface, Out Surescripts Prov Query - 02/01/2018 7:02 AM CST GENVOYA [phone] MG tablet [Pharmacy Med Name: Genvoya Oral Tablet [id number] MG] Nucleoside Reverse Transcriptase Inhibitors 1 -> AST is overdue (performed 22 months ago, required every 6 months) Last qualifying visit: 10/20/2017 (in [facility] INFECTIOUS DISEASE with MARIE SHARMA) Next scheduled visit: None Last ordered by MARIE SHARMA: 02/23/2017 (343 days ago) QTY: 30, Refills: 10, Sig: take 1 tabletby mouth daily with breakfast (unchanged) Cr: 0.7 mg/dL on 09/22/2017 AST: 18 U/L on 04/15/2016 HGB: 13.2 g/dL on 09/22/2017 HCT: 39.1 % on 09/22/2017 CBC w/ Diff: Taken on 09/22/2017 PLT: 200 k/cmm on 09/22/2017 RBC: 4.42 m/cmm on 09/22/2017 WBC: 4.2 k/cmm on 09/22/2017 Powered by [facility], Reference: [id number], 02/01/2018 7:02:25 AM SIZE MIXER, Pool: EDITH RUSSELL ([id number]) MIXER documented in this encounter Plan of Treatment Not on filedocumented as of this encounter Visit Diagnoses Not on filedocumented in this encounter Care Teams Orthopaedic Technologist Relationship Specialty Start Date End Date Mary Kay Lr, VP BUSINESS DEVELOPMENT, MINK SLICER PCP - General Nurse Practitioner 12/01/17 04/23/21 [address] [place] [address] documented as of this encounter
--- OUTSIDE RECORDS SUMMARY | 2021-11-06 20:44 | XMS_ITS | Encounter Summary ---
:1975 Author Organization [facility] Address [address] [place] [address] Care Team Providers Name Role Phone No Primary/Referring, Phy Primary Care Provider Unavailable Reason for Visit Reason Comments INFECTION, YEAST Encounter Details Date Type Department Care Team Description 07/28/2015 Nurse Triage Careline Unassigned, Provider INFECTION, YEAST [address] [place], [place] [address] [place] [address] Social History Tobacco Use Types Packs/Day Years Used Date Smoking Tobacco: Never Alcohol Use Standard Drinks/Week Comments Yes 0 (1 standard drink = 0.6 oz pure alcoho l) occ Alcohol Habits Answer Date Recorded How often do you have a drink containing 4 or more times a w [place] 02/01/2020 alcohol? How many drinks containing alcohol do you have Not asked on a typical day when you are drinking? How often do you have six or more drinks on one Not asked occasion? Comment: occ 07/20/2015 Sex Assigned at Date Recorded Not on file documented as of this encounter Nursing Notes Ruma Hicks RN - 07/28/2015 6:17 PM CDT Protocol: VULVAR [id number] Affirmative: Symptoms of a 'yeast infection' (i.e., itchy, white discharge, not bad smelling), whichfeels like prior vaginal yeast infections Disposition of Home Care suggested. Ruma Hicks RN - 07/28/2015 5:44 PM CDT Clinician actions requested: FYI concern only- NO follow up needed Next steps: FYI only. Please review and close encounter. Additional Information: Sent per cotton wringer MD request. Would like to keep you aware of patient symptoms. Verified and full name. Yes Situation/Symptom: Patient states she does not have discharge. Patient states she has Itching. Unsure if redness. Everything that is happening now is exactly what is happening when I got tested for yeast. Was treated with one pill, then the next one 3 days later. Have not used creams or anything. Some improvement since treatment, but symptoms are not normal, yet. Background related to current situation/symptom: 2 weeks of yeast infection symptoms. 8 days since first treatment. Pertinent Medical history: s/p Hysterectomy 2013 Medications: Reviewed Pertinent medications with the patient/caller Yes 5:[address] Manriquez called. RN used cell number as requested. 6:[address]. Manriquez answered call. RN reviewed patient history, recent patient visits with Dr. Fisher and patient current symptoms. Dr. Manriquez gave telephone order for 1 dose Diflucan, no repeat or refills. Requests a note be sent to Dr. Fisher to inform her of patient status, and also requests patient be seen if symptoms are not resolved with this medication, or if any other symptoms occur. 6:14 PM RN call to patient to discuss MD telephone discussion and order for one more dose of Diflucan. RN also advised that [facility] pharmacy previously used is not open. Patient states she is comfortable waiting until tomorrow for medication. Requests RN send prescription to [facility] pharmacy on [address] in [facility] as was previously sent. Patient agrees to be seen in clinic if any further symptoms occur, or if medication does not resolve symptoms. 6:15 PM Medication ordered electronically to [facility] pharmacy in [place] per patient request. I instructed the patient to follow up with the CareLine as needed 01/09 at [phone]. The patient or the Emergency Contact for the patient verbalizes understanding and agrees to the plan. Ruma Hicks RN Mirlande Rodrigues - 07/28/2015 3:33 PM CDT Which care system or clinic is the patient normally seen at? [facility]. Situation: pt is c/o medication for her yeast infection isn't working Plan:A nurse will return your call. If your symptoms change for the worse, please call us back [phone].. documented in this encounter Plan of Treatment Not on filedocumented as of this encounter Visit Diagnoses Diagnosis Yeast vaginitis - Primary Candidiasis of vulva and vagina documented in this encounter Care Teams Magazine Editor Relationship Specialty Start Date End Date No Primary/Referring, Phy PCP - General 03/07/15 documented as of this encounter
--- OUTSIDE RECORDS SUMMARY | 2021-11-06 20:44 | XMS_ITS | Encounter Summary ---
:1975 Author Organization [facility] Address [address] [place] [address] Care Team Providers Name Role Phone Natalia Anabell Sy DO Primary Care Provider Reason for Visit Reason Comments FOLLOW-UP,HIV Encounter Details Date Type Department Care Team Description 04/15/2016 Office Visit [facility] Mike Hicks omatic human 401 Infectious T, immunodeficiency virus Disease [address] (HIV) infection status [address] [place], [place] (HRC) (Primary Dx) [place] [address] [phone] Social History Tobacco Use Types Packs/Day Years [...] Sign Reading Time Taken Comments Blood Pressure 112/68 04/15/2016 9:05 AM EXPRESS MANAGER Pulse 72 04/15/2016 9:05 AM EXPRESS MANAGER Temperature 36.6 ??C (97.8 ??F) 04/15/2016 9:05 AM EXPRESS MANAGER Respiratory Rate - - Oxygen Saturation - - Inhaled Oxygen Concentration - - Weight 59.9 kg (132 lb) 04/15/2016 9:05 AM EXPRESS MANAGER Height - - Body Mass Index 20.67 03/14/2016 9:17 AM EXPRESS MANAGER documented in this encounter Patient Instructions Patient InstructionsMike Hicks MD - 04/15/2016 9:27 AM CST Follow up in 2 months. You can go to the lab after this visit. Thank you for coming in today. Mike Hicks MD 04/15/2016 ESS MANAGER documented in this encounter Progress Notes Mike Hicks MD - 04/15/2016 9:09 AM CST This patient comes in for [...] and a viral load of 38,000. She comes back in today to discuss test results. She has a CD4 count of 272. She began therapy with genvoya on March 19. She states that she has not missed any doses of her treatment. She denies any side effects to this treatment. Her is taking the same treatment. Shefeels that overall she is making a good adjustment to the new diagnosis. She denies any recent illnesses. Social history She lives in [place] with her . 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 Theyhave dogs and cats at home. She also has a horse at a different site. 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 They do not have any children. No tobacco use. She drinks a glass of wine every evening. No illegal drugs. No IV drug abuse. No recent travel. She previously has spenttime in [place], [place], [place] and [place]. She took a trip to the [place] a few years ago. 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 Patient Active Problem List Diagnosis ??? S/P hysterectomy ??? Pap test history ??? Screening for HIV (human immunodeficiency virus) ??? Asthma ([facility]) Family history Her grandmother had amyotrophic lateral sclerosis. Her father is going through treatment for multiple myeloma. Her mother has depression. BP 112/68 mmHg Pulse 72 Temp(Src) 97.8 ??F (36.6 ??C) (Oral) Wt 132 lb (59.875 kg) BP 112/68 mmHg Pulse 72 Temp(Src) 97.8 ??F (36.6 ??C) (Oral) Wt 132 lb (59.875 kg) Pt A, in NAD answering questions appropriately [...] immune Hep A immune Component Latest Ref Rn 02/20/2016 HIV Interpretation NDET Detected (A) HIV Copies per/ml 48420 HIV Log Copies/ml 4.59 Component Latest Ref Rng 02/20/2016 HIV Interpretation NDET Detected (A) HIV Copies per/ml 14733 HIV Log Copies/ml 4.59 Component Latest Ref Rng 02/29/2016 T3 % 62.1 - 85.0 % 77.2 T3 Absolute 500 - 2544 /ul 669 T4 % 31.6 - 65.7 % 31.4 (L) T4 Absolute 337 - 1687 /ul 272 (L) T8 % 10.0 - 40.0 % 45.3 (H) T8 Absolute 140 - 907 /ul 393 T4/T8 Ratio 0.8 - 3.7 0.7 (L) A/P 41-year-old female with recently diagnosed HIV, detected on a life insurance exam, confirmed on testing through [facility] Her has reportedly also tested positive for HIV. She has a CD4 count 272 with a viral load of 38,000. She is doing well clinically. I have discussed her genotype results with her in further discuss the natural history of HIV. She began therapy with genvoya on March 19. We have discussed thismedication. She is on climara which can have a drug interaction, but she is not using this for birthcontrol she has had a hysterectomy. She has tolerated this medication well. I will repeat her labs today. I would like to see her again in two months. PLAN: Continue treatment with genvoya Monitor for any side effects Follow-up in two months Recheck viral load and CD4 count today Mike Hicks MD 04/15/2016 ESS MANAGER documented in this encounter Plan of Treatment Not on filedocumented as of this encounter Results (ABNORMAL) Complete Blood Count-W/Diff (04/15/2016 9:35 AM EXPRESS MANAGER) [facility] Method Time Signature WBC 3.7 (L) 4.0 - [facility] 11.0 k/ul [facility] RBC 4.74 4.0 - 5.2 [facility] M/ul [facility] Hemoglobin 13.1 12.0 - [facility] 16.0 g/dl LAB[facility]IES HCT 40.0 36.0 - [facility] 46.0 % [facility] MCV 84.4 80 - 100 [facility] fl [facility] MCH 27.6 26 - 34 [facility] pg [facility] MCHC 32.8 32 - 36 [facility] g/dl [facility] RDW 13.3 11.5 - [facility] 14.5 % [facility] Platelets 199 150 - 450 [facility] k/ul [facility] PMN/Band 40 % [facility] Lymph 31 % [facility] Weber 8 % [facility] Eos 20 % [facility] Baso 1 % [facility] Neutrophil 1.5 (L) 1.8 - 7.7 [facility] Absolute k/ul LAB[facility] Lymph Absolute 1.2 1.0 - 4.8 [facility] k/ul [facility] Weber Absolute 0.3 0.1 - 0.7 [facility] k/ul [facility] Eos Absolute 0.7 (H) 0.0 - 0.5 [facility] k/ul [facility] Baso Absolute 0.0 0.0 - 0.2 [facility] k/ul [facility] Immature Gran 0 % [facility] Imm Gran 0.0 0 k/ul [facility] Absolute [facility] Specimen Anatomical Collection Method Collection Time Receive d Time (Source) Location / / Volume Laterality 04/15/2016 9:35 AM 7 9:41 EXPRESS MANAGER AM EXPRESS MANAGER Narrative [facility] - 04/15/2016 1:[address] Performed at [facility], [address] [place] [address] ??[phone] Mike Hicks MD LAB_1 Performing Organization Address City/[facility]/ZIP Code Phon e Number [facility] [phone] AST (04/15/2016 9:35 AM EXPRESS MANAGER) P athologist Signature AST (SGOT) 18 10 - 40 U/L [facility] Specimen Anatomical Collection Method Collection Time Receive d Time (Source) Location / / Volume Laterality 04/15/2016 9:35 AM 7 9:41 EXPRESS MANAGER AM EXPRESS MANAGER Narrative [facility] - 04/15/2016 12:51 PM EXPRESS MANAGER Performed at [facility], [address] [place] [address] ??[phone] Mike Hicks MD LAB_1 Performing Organization Address City/[facility] Code Phon e Number [facility] [phone] ALT (SGPT) (04/15/2016 9:35 AM EXPRESS MANAGER) athologist Signature ALT (SGPT) 14 0 - 55 U/L [facility] Specimen Anatomical Collection Method Collection Time Receive d Time (Source) Location / / Volume Laterality 04/15/2016 9:35 AM 7 9:41 EXPRESS MANAGER AM EXPRESS MANAGER Narrative [facility] - 04/15/2016 12:51 PM EXPRESS MANAGER Performed at [facility], [address] [place] [address] ??[phone] Mike Hicks MD LAB_1 Performing Organization Address City/[facility]/ZIP Code Phon e Number [facility] [phone] Creatinine / GFR (04/15/2016 9:35 AM EXPRESS MANAGER) Analysis Performed At Patho logist Time Signature Creatinine 0.71 0.55 - [facility] 1.02 mg/dl LAB[facility] GFR, Estimated >60 >60 [facility] ml/min/1.7 LAB[facility] 3m2 GFR, Est., If >60 >60 [facility] Black ml/min/1.7 LAB[facility]ATORIES 3m2 Specimen Anatomical Collection Method Collection Time Receive d Time (Source) Location / / Volume Laterality 04/15/2016 9:35 AM 7 9:41 EXPRESS MANAGER AM EXPRESS MANAGER Narrative [facility] - 04/15/2016 12:51 PM EXPRESS MANAGER Performed at [facility], [address] [place] [address] ??[phone] Mike Hicks MD LAB_1 Performing Organization Address [facility] Phon e Number [facility] [phone] (ABNORMAL) T Cell Ratio (04/15/2016 9:35 AM EXPRESS MANAGER) Analysis Performed At Patho logist Time Signature T3 % 80.9 62.1 - [facility] 85.0 % LAB[facility] T3 Absolute 899 500 - [facility] 2,544 /ul LAB[facility] T4 % 31.9 31.6 - [facility] 65.7 % LAB[facility] T4 Absolute 354 337 - [facility] 1,687 /ul LAB[facility]ATORIES T8 % 49.2 (H) 10.0 - [facility] 40.0 % LAB[facility] T8 Absolute 546 140 - 907 [facility] /ul LABORATORIES T4/T8 Ratio 0.6 (L) 0.8 - 3.7 [facility] Specimen Anatomical Collection Method Collection Time Receive d Time (Source) Location / / Volume Laterality 04/15/2016 9:35 AM 7 9:41 EXPRESS MANAGER AM EXPRESS MANAGER Narrative [facility] - 04/15/2016 2:[address] Performed at [facility] , [address] [place] [phone] Mike Hicks MD LAB_1 Performing Organization Address [facility] Phon e Number [facility] [phone] HIV 1 Quantitative PCR, Viral Load (04/15/2016 9:35 AM EXPRESS MANAGER) Component Value Ref Test Analysis Performed At Patholo gist Range Method Time Signature HIV Not NDET [facility] Interpretation Detected LAB[facility]ATORIES Comment: Test Performed by Real Time PCR This result has been reported to the [facility] Department of Health. HIV Copies per/ml <40 Copies/ml [facility] HIV Log Copies/ml <1.60 Log Copies/ml [facility] Specimen Anatomical Collection Method Collection Time Receive d Time (Source) Location / / Volume Laterality 04/15/2016 9:35 AM 7 9:41 EXPRESS MANAGER AM EXPRESS MANAGER Narrative [facility] - 04/16/2016 4:[address] Performed at [facility], [address] [place] [address] ??[phone] Mike Hicks MD LAB_1 Performing Organization Address City/State/ZIP Code Phon e Number [facility] [phone] documented in this encounter Visit Diagnoses Diagnosis Asymptomatic human immunodeficiency viru s (HIV) infection status (HRC) - Primary Asymptomatic human immunodeficiency viru s (HIV) infection status Asymptomatic human immunodeficiency viru s (HIV) infection status (HRC) Asymptomatic human immunodeficiency viru s (HIV) infection status documented in this encounter Care Teams Functional Director Relationship Specialty Start Date End Date Anaebll Fisher DO PCP - General Family Practice 02/14/16 11/30/17 [address] [place] [address] documented as of this encounter
--- OUTSIDE RECORDS SUMMARY | 2021-11-06 20:44 | XMS_ITS | Encounter Summary ---
:1975 Author Organization [facility] Address [address] [place] [address] Care Team Providers Name Role Phone Anabell Fisher DO Primary Care Provider Reason for Visit Reason Comments QUESTIONS, GENERAL Encounter Details Date Type Department Care Team Description 02/20/2016 Telephone [facility] Chetna Fisher, DO QUESTIONS, extractor operator [address] [place] [address] [place], [place] [address] [phone] Social History Tobacco Use Types Packs/Day Years [...] documented as of this encounter Nursing Notes Mara Ospina - 02/20/2016 12:13 PM CST appt scheduled for 220 today RER CUTTING TOOL Anabell Fisher, - 02/20/2016 10:36 AM CST Erika Terry - Please have her make an appointment to come in and discuss results from life insurance.Okay to add on to today's schedule. Thanks, Anabell Fisher DO 02/20/2016, 10:36 AM RER CUTTING TOOL Mary Beard - 02/20/2016 8:44 AM CST GAMINSIDE would like to speak to his provider Name of patient's provider: Natalia Summarize the patient's question or concern: lab results confidential Is it okay to leave detailed message on your voicemail? yes If after 3pm, can this wait until tomorrow? No today please Mary Beard RER CUTTING TOOL documented in this encounter Plan of Treatment Not on filedocumented as of this encounter Visit Diagnoses Not on filedocumented in this encounter Care Teams Agricultural Chemicals Inspector Relationship Specialty Start Date End Date Anabell Fisher DO PCP - General Family Practice 02/14/16 11/30/17 [address] [place] [address] documented as of this encounter
--- OUTSIDE RECORDS SUMMARY | 2021-11-06 20:44 | XMS_ITS | Encounter Summary ---
:1975 Author Organization [facility] Address [address] [place] [address] Care Team Providers Name Role Phone Anabell Fisher DO Primary Care Provider Reason for Visit Reason Comments Post Visit Follow Up Phone Call Encounter Details Date Type Department Care Team Description 02/21/2016 Telephone [facility] Anabell Fisher, Pos t Visit Follow Up Practice DO Phone Call [address] [place], [place] [address] [place], [place] [phone] (Wo rk) Social History Tobacco Use Types [...] documented as of this encounter Nursing Notes Princess Bahena RN - 02/21/2016 8:35 AM CST Please see 02/20/16 ID telephone encounter for details BL FP RN will not contact pt at this time Princess Knott RN 02/21/2016, 8:36 AM CONSULTANT Anabell Fisher DO - 02/21/2016 6:44 AM CST Please call Cristiana to assist her in scheduling with Infectious disease urgently either or robert storm or other as allowed by her insurance. She is traveling to [place] on Thursday. She was denied life insurance and that is how she found out her HIV test was positive which we discussed in clinic yesterday. It is still being confirmed in our lab. This was unexpected for her. I was told they are able to offer social workers at the ID clinic so if she could also schedule with them QUENTIN that would be helpful. I'm available by pager if you need any help. Thanks, Anabell Fisher DO 02/21/2016, 6:47 AM CONSULTANT documented in this encounter Plan of Treatment Not on filedocumented as of this encounter Visit Diagnoses Not on filedocumented in this encounter Care Teams Warehouse Hand Relationship Specialty Start Date End Date Anabell Fisher DO PCP - General Family Practice 02/14/16 11/30/17 [address] [place] [address] documented as of this encounter
--- OUTSIDE RECORDS SUMMARY | 2021-11-06 20:44 | XMS_ITS | Encounter Summary ---
:1975 Author Organization [facility] Address [address] [place] [address] Care Team Providers Name Role Phone Gabrielgianlucafawn Anabell Sy OLIVERA Primary Care Provider Reason for Visit Procedure/Equipment (Routine) - Incomplete Specialty Diagnoses / Procedures Referred By Contact Refer red To Contact Diagnoses Asymptomatic human immunodeficiency virus (HIV) infection status (HRC) Mike Hicks MD Procedures XR Chest [address] [place] [address] Referral ID Status Reason Start Date Expiration Date Visits V isits Requested Authorized [id number] Incomplete 02/29/2016 05/30/2017 1 1 Encounter Details Date Type Department Care Team Description 02/29/2016 Imaging Health Specialty Mike Hicks Asympt [facility] Radiology immunodeficiency virus [address] (HIV) [place] [address] [place], [place] (C) [phone] Social History Tobacco Use Types Packs/Day Years [...] as of this encounter Progress Notes Vicky Son, RN - 03/05/2016 4:20 PM JANITOR Quick Note: Message sent to the patient's MyChart. TOR documented in this encounter Plan of Treatment Not on filedocumented as of this encounter Procedures Procedure Name Priority Date/Time Associated Diagnosis Comme nts XR CHEST 2 VIEWS Routine 02/29/2016 10:15 Asymptomatic human R esults for this AM JANITOR immunodeficiency virus proce dure are in (HIV) infection status the r esults (HRC) section. documented in this encounter Results XR Chest 2 Views (02/29/2016 10:15 AM JANITOR) Anatomical Region Laterality Modality Chest, Lung Computed Radiography Specimen (Source) Anatomical Collection Method Collection Time Re ceived Time Location / / Volume Laterality 02/29/2016 10:15 AM JANITOR Narrative 02/29/2016 8:25 PM JANITOR XR CHEST 2 VIEWS 02/29/2016 10:15 AM INDICATION: Cough. ? COMPARISON: None. FINDINGS: Negative chest. Both lungs maxi ar. Procedure Note Christiano Velez MD - 02/29/2016Form atting of this note might be different from the original. XR CHEST 2 VIEWS 02/29/2016 10:15 AM INDICATION: Cough. COMPARISON: None. FINDINGS: Negative chest. Both lungs maxi ar. Mike Hicks MD RAD GD documented in this encounter Visit Diagnoses Diagnosis Asymptomatic human immunodeficiency viru s (HIV) infection status (HRC) Asymptomatic human immunodeficiency viru s (HIV) infection status documented in this encounter Care Teams Compound Coating Machine Offbearer Relationship Specialty Start Date End Date Anabell Fisher DO PCP - General Family Practice 02/14/16 11/30/17 [address] [place] [address] documented as of this encounter
--- OUTSIDE RECORDS SUMMARY | 2021-11-06 20:44 | XMS_ITS | Encounter Summary ---
:1975 Author Organization [facility] Address [address] [place] [address] Care Team Providers Name Role Phone No Primary/Referring, Phy Primary Care Provider Unavailable Reason for Visit Reason Onset Date Comments Refill 08/10/2015 Encounter Details Date Type Department Care Team Description 08/10/2015 Refill [facility] and Joshua Lorenzo MD Refill Gynecology [address] [place] [address] [phone] Social History Tobacco Use Types Packs/Day Years Used Date Smoking Tobacco: Never Alcohol Use Standard Drinks/Week Comments Yes 0 (1 standard drink = 0.6 oz pure alcoho l) occ Alcohol Habits Answer Date Recorded How often do you have a drink containing 4 or more times a w [place]ppi [place] 02/01/2020 alcohol? How many drinks containing alcohol do you have Not asked on a typical day when you are drinking? How often do you have six or more drinks on one Not asked occasion? Comment: occ 07/20/2015 Sex Assigned at Date Recorded Not on file documented as of this encounter Nursing Notes Teena Cano, RN - 08/17/2015 3:59 PM CDT Pt meets all requirements per standing order for refill. Refill sent for 3 months to [facility]. Teena Cano, RN Ruma Du RN - 08/15/2015 3:46 PM CDT BP Readings from Last 1 Encounters: 07/20/15 118/74 Date of last pap: 07/20/15 ??? Pap Test, Routine Last visit in OB: 03/28/15 Med originally prescribed 03/28/15 for 8 patches and 3 refills. Second request sent. Will send to the provider for refill. Ruma Du RN documented in this encounter Plan of Treatment Not on filedocumented as of this encounter Visit Diagnoses Not on filedocumented in this encounter Care Teams Second Worker Relationship Specialty Start Date End Date No Primary/Referring, Phy PCP - General 03/07/15 documented as of this encounter
--- OUTSIDE RECORDS SUMMARY | 2021-11-06 20:44 | XMS_ITS | Encounter Summary ---
:1975 Author Organization [facility] Address [address] [place] [address] Care Team Providers Name Role Phone No Primary/Referring, Phy Primary Care Provider Unavailable Reason for Visit Reason Comments FULL BODY CHECK Consult/Transfer Care (Routine) - Closed Specialty Diagnoses / Procedures Referred By Contact Refer red To Contact Diagnoses Dermatitis Pigmented skin lesion Anabell Fisher, DO [address] [place], [place] [address] Referral ID Status Reason Start Date Expiration Date Visits Requ ested Visits Authorized [id number] Closed 09/06/2015 12/05/2016 1 1 Encounter Details Date Type Department Care Team Description 11/27/2015 Office Visit [place] Saray Kay Seborrhei c keratosis (Primary Dx); Dermatology MD [place] Screening for malignant neoplasm of skin ; [address] Multiple pigmented nevi; [place], [place] [address] [place], [place] Poikiloderma; [phone] Family history of melanoma Social History Tobacco Use Types Packs/Day Years [...] as of this encounter Patient Instructions Patient InstructionsAdyindy KONG Albright - 11/27/2015 12:57 PM CDT I recommend diligent sun protection (including sunscreen SPF 30 or higher, hat, sunglasses, long sleeved clothing, avoidance of tanning beds, avoidance of sun between 10 am and 4 pm), monthly self skinexam, and return to clinic in 1 year or sooner as needed for any new or changing growths. See our nurse at the [facility] for Laser treatment. Her name is [phone]. You could also see the other following doctors for Laser treatment. Laser Treatment Dr. Laura Pugh Practices at [address] [address] [facility] Specialty [address] [place], [place] [phone] [facility] [phone] Dr. Huber Cabrales [phone] [email or web address] [address] [place], [place] documented in this encounter Progress Notes Saray Kay MD - 12/02/2015 1:31 PM CDT HPI: 40 y/o woman with no h/o skin cancer presents for skin check. C/o a raised, rough growths on the R evangelical and below L eye x months. They have been stable in size and asx. Also c/o redness on her chest x years. She has h/o excessive sun exposure in this area. This worsens with heat. Denies any other new or changing lesions. Has history of increased UV exposure. Generally protects skin from sun exposure by wearing clothing and sunscreen. Otherwise, her health is generally stable with no new medical problems. Patient Active Problem List Diagnosis ??? S/P hysterectomy ??? Pap test history FH: Father with melanoma NKDA Meds: Reviewed in [facility] on 11/27/2015 PE: General: Well-appearing; no acute distress. Skin: Examination today includes the scalp, face, neck, chest, abdomen, back, buttocks and all four extremities. Brown to spear macules and papules scattered on trunk, arms and legs. Waxy, brown to spear, stuck-on papules on R evangelical and L infraorbital cheek. Erythema with telangiectasia noted on the upper chest. A/P: 1) Nevi on trunk and ext's. Recommended diligent sun protection and monthly monitoring moles. A pamphlet on skin cancer and the ABCDE's of melanoma given to patient for review. 2) SK on R evangelical and L cheek. Benign. Reassured. 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 Recommended laser tx with either Dr. Laura Pugh or Dr. Huber Cabrales. 4) Family h/o melanoma in father. RTC in 1 year for skin check. Saray Kay MD documented in this encounter Plan of Treatment Not on filedocumented as of this encounter Visit Diagnoses Diagnosis Seborrheic keratosis - Primary Other seborrheic keratosis Screening for malignant neoplasm of skin Screening for malignant neoplasm of the skin Multiple pigmented nevi Benign neoplasm of skin, site unspecifie d Poikiloderma Other dyschromia Family history of melanoma Family history of other specified malign ant neoplasm documented in this encounter Care Teams Box Builder Relationship Specialty Start Date End Date No Primary/Referring, Phy PCP - General 03/07/15 documented as of this encounter
--- OUTSIDE RECORDS SUMMARY | 2021-11-06 20:44 | XMS_ITS | Encounter Summary ---
:1975 Author Organization [facility] Address [address] [place] [address] Care Team Providers Name Role Phone Anabell Fisher DO Primary Care Provider Reason for Visit Reason Comments QUESTIONS, GENERAL Encounter Details Date Type Department Care Team Description 02/18/2016 Telephone [facility] Chetna Fisher, QUESTIONS, golf superintendent [address] [place] [address] [place], [place] [address] [phone] Social History Tobacco Use Types Packs/Day Years Used Date Smoking Tobacco: Never Alcohol Use Standard Drinks/Week Comments Yes 0 (1 standard drink = 0.6 oz pure alcoho l) occ Alcohol Habits Answer Date Recorded How often do you have a drink containing 4 or more times a w resighini 02/01/2020 alcohol? How many drinks containing alcohol do you have Not asked on a typical day when you are drinking? How often do you have six or more drinks on one Not asked occasion? Comment: occ 07/20/2015 Sex Assigned at Date Recorded Not on file documented as of this encounter Nursing Notes Mara Ospina - 02/19/2016 10:38 AM CST No - i'll touch base with Cristiana tomorrow. They are coming from [place]. OGEN OPERATOR Anabell Fisher DO - 02/18/2016 3:11 PM CST Does Mara's office have word as to whether this has arrived yet or not? OGEN OPERATOR Mary Beard - 02/18/2016 1:15 PM CST Patient called and had FedEx'd package Sent to [facility] from Insurance company sent to Dr. Fisher, and would like a call if and when this is recv'd . Please call [phone]. OGEN OPERATOR documented in this encounter Plan of Treatment Not on filedocumented as of this encounter Visit Diagnoses Not on filedocumented in this encounter Care Teams Wire Setter Relationship Specialty Start Date End Date Anabell Fisher DO PCP - General Family Practice 02/14/16 11/30/17 [address] [place] [address] documented as of this encounter
--- OUTSIDE RECORDS SUMMARY | 2021-11-06 20:44 | XMS_ITS | Encounter Summary ---
:1975 Author Organization [facility] Address [address] [place] [address] Care Team Providers Name Role Phone Natalia Anabell Dan DO Primary Care Provider Reason for Visit Reason Comments Same Day/Next Day Appt. Encounter Details Date Type Department Care Team Description 02/20/2016 Telephone [facility] Unknown, Same Da y/Next Day Appt. Disease Physician [address] [facility] [facility], [place] [address] [place], [place] [phone] [id number] Social History Tobacco Use Types Packs/Day Years Used Date Smoking Tobacco: Never Smokeless Tobacco: Never Alcohol Use Standard Drinks/Week Comments Yes 0 (1 standard drink = 0.6 oz pure alcoho l) occ Alcohol Habits Answer Date Recorded How often do you have a drink containing 4 or more times a w [place] 02/01/2020 alcohol? How many drinks containing alcohol do you have Not asked on a typical day when you are drinking? How often do you have six or more drinks on one Not asked occasion? Comment: occ 07/20/2015 Sex Assigned at Date Recorded Not on file documented as of this encounter Nursing Notes Grace Moore - 02/21/2016 4:21 PM CST Patient is scheduled CARRIER INSPECTOR Vicky Son RN - 02/21/2016 2:48 PM CST Bench Assembler Electrical spoke with the patient and answered her questions. Bench Assembler Electrical did not relay any lab results. She agreed to see Dr. Hicks on 02/28 at 8.30 am. She states she was not aware of any appointments made forher with ID. Clinical assistants: Please reschedule the patient to see Dr. Hicks on 02/28 at 8.30 am for New Patient, ID2 and cancel appointment with Dr. Ramsey on 03/04. The patient is aware, no need to call the patient. Thank you. Vicky Son RN 02/21/2016, 2:50 PM CARRIER INSPECTOR Vicky Son RN - 02/21/2016 1:51 PM CST Bench Assembler Electrical spoke with Davide, casing worker, requesting that nursing reach out to the patient regarding labresult. Davide had been informed by other staff that the patient is very anxious and is looking to speak with someone about it. Bench Assembler Electrical called the patient. She was not in a good place to talk and will callback. Please send through to nursing. Thank you. Vicky Son RN 02/21/2016, 1:55 PM CARRIER INSPECTOR Monique Correia RN - 02/21/2016 10:24 AM CST Okay to schedule at next available appointment. Monique Ch RN 02/21/2016, 10:28 AM Infectious Disease CARRIER INSPECTOR Grace Moore - 02/20/2016 4:28 PM CST Called patient and let her know there was nothing available tomorrow. She states her Dr told her today she tested positive for HIV and she is leaving on a trip Thursday for 5 days really wanted to see someone before she left but could wait until the or CARRIER INSPECTOR Yanira Conti - 02/20/2016 3:51 PM CST Patient would like appointment with: Any Provider Patient requesting appointment for: HIV Wants/Needs to be seen within: pt requesting to be seen tomorrow Additional Comments: Add Is it okay to leave detailed message on your voicemail? Yes Yanira Conti CARRIER INSPECTOR documented in this encounter Plan of Treatment Not on filedocumented as of this encounter Visit Diagnoses Not on filedocumented in this encounter Care Teams Embossograph Operator Relationship Specialty Start Date End Date Anabell Fisher DO PCP - General Family Practice 02/14/16 11/30/17 [address] [place] [address] documented as of this encounter
--- OUTSIDE RECORDS SUMMARY | 2021-11-06 20:44 | XMS_ITS | Encounter Summary ---
:1975 Author Organization [facility] Address [address] [place] [address] Care Team Providers Name Role Phone Natalia Anabell Dan DO Primary Care Provider Reason for Visit Reason Comments QUESTIONS, GENERAL Encounter Details Date Type Department Care Team Description 02/14/2016 Telephone [facility] Chetna Fisher, DO QUESTIONS, flavor extractor [address] [place] [address] [place], [place] [address] [phone] Social History Tobacco Use Types Packs/Day Years Used Date Smoking Tobacco: Never Alcohol Use Standard Drinks/Week Comments Yes 0 (1 standard drink = 0.6 oz pure alcoho l) occ Alcohol Habits Answer Date Recorded How often do you have a drink containing 4 or more times a w [place] 02/01/2020 alcohol? How many drinks containing alcohol do you have Not asked on a typical day when you are drinking? How often do you have six or more drinks on one Not asked occasion? Comment: occ 07/20/2015 Sex Assigned at Date Recorded Not on file documented as of this encounter Nursing Notes Ilir Cisneros CMA - 02/20/2016 11:47 AM CST Pt has an OV scheduled today @ 2:20 p.m Ilir Cisneros CMA ING MECHANIC Jarvis Pack LPN - 02/19/2016 1:34 PM CST See 02/18/16 phone call-awaiting result from [place]. Jarvis Pack LPN 02/19/2016, 1:34 PM ING MECHANIC Ilir Cisneros CMA - 02/14/2016 10:39 AM CST Spoke to pt, these labs are in conjunction with an exam by pt to receive life insurance which was denied. Pt wants to be called when we receive the lab reports and have a telephone visit w/ Dr. Melendez review lab reports. Ilir Cisneros CMA 02/14/2016, 11:38 AM ING MECHANIC Wilfred Mckeon - 02/14/2016 10:25 AM CST What condition are you calling about: Pt called into to make Dr Fisher her primary Doctor because she will be receiving test results from [employer] and needed A Doctor to go over the results with her. Please contact pt when result are received. What concerns do you have: Pt called into to make Dr Fisher her primary Doctor because she will be receiving test results from [employer] and needed A Doctor to go over the results with her. Please contact pt when result are received. Best number to reach you? [phone] Is it okay to leave detailed message on your voicemail? yes [[facility] Dec[facility]ator/Appt Center: If this call is after 3 p.m., communicate to patient: If we are not able to get back to you by the end of the day and your symptoms worsen please contact the Careline] Wilfred Mckeon 02/14/2016, 10:30 AM ING MECHANIC documented in this encounter Plan of Treatment Not on filedocumented as of this encounter Visit Diagnoses Not on filedocumented in this encounter Care Teams Database Analyst Relationship Specialty Start Date End Date Anabell Fisher DO PCP - General Family Practice 02/14/16 11/30/17 [address] [place] [address] documented as of this encounter
--- OUTSIDE RECORDS SUMMARY | 2021-11-06 20:44 | XMS_ITS | Encounter Summary ---
:1975 Author Organization [facility] Address [address] [place] [address] Care Team Providers Name Role Phone Gabrielrip Anabell Sy DO Primary Care Provider Reason for Visit Reason Comments FOLLOW-UP,HIV Encounter Details Date Type Department Care Team Description 06/23/2016 Office Visit [facility] Mike Hicks omatic human 401 Infectious T, immunodeficiency virus Disease [address] (HIV) infection status [address] [place], [place] (HRC) (Primary Dx) [place] [address] [phone] Social History Tobacco Use Types Packs/Day Years Used Date Smoking Tobacco: Never Smokeless Tobacco: Never Alcohol Use Standard Drinks/Week Comments Yes 7 (1 standard drink = 0.6 oz pure alcoho l) Alcohol Habits Answer Date Recorded How often do you have a drink containing 4 or more times a w [place] 02/01/2020 alcohol? How many drinks containing alcohol do you have Not asked on a typical day when you are drinking? How often do you have six or more drinks on one Not asked occasion? Comment: Not asked Sex Assigned at Date Recorded Not on file documented as of this encounter Last Filed Vital Signs Vital Sign Reading Time Taken Comments Blood Pressure 106/67 06/23/2016 9:52 AM CDT Pulse 68 06/23/2016 9:52 AM CDT Temperature 36.5 ??C (97.7 ??F) 06/23/2016 9:52 AM CDT Respiratory Rate 12 06/23/2016 9:52 AM CDT Oxygen Saturation - - Inhaled Oxygen Concentration - - Weight 59.9 kg (132 lb) 06/23/2016 9:52 AM CDT Height - - Body Mass Index 20.67 03/14/2016 9:17 AM AIRCRAFT STRESS ANALYST documented in this encounter Patient Instructions Patient InstructionsMike Hicks MD - 06/23/2016 10:09 AM CDT Follow up in 3 months. You can go to the lab after this visit. Thank you for coming in today. Mike Hicks MD 06/23/2016 documented in this encounter Progress Notes Mike Hicks MD - 06/23/2016 9:53 AM CDT This patient comes in for [...] No diarrhea. Social history She lives in [place] with her . 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 Theyhave dogs and cats at home. She also has a horse at a different site. 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 They do not have any children. No tobacco use. She drinks a glass of wine every evening. No illegal drugs. No IV drug abuse. No recent travel. She previously has spenttime in [place], [place], [place] and [place]. She took a trip to the [place] a few years ago. She previously worked as a [employer] more than 11 years ago. Patient Active Problem List Diagnosis ??? S/P hysterectomy ??? Pap test history ??? Screening for HIV (human immunodeficiency virus) ??? Asthma ([facility]) Family history Her grandmother had amyotrophic lateral sclerosis. Her father is going through treatment for multiple myeloma. Her mother has depression. BP 106/67 mmHg Pulse 68 Temp(Src) 97.7 ??F (36.5 ??C) (Oral) Resp 12 Wt 132 lb (59.875 kg) BP 106/67 mmHg Pulse 68 Temp(Src) 97.7 ??F (36.5 ??C) (Oral) Resp 12 Wt 132 lb (59.875 kg) Pt A, [...] Hep A immune Component Latest Ref Rng 04/15/2016 T3 % 62.1 - 85.0 % 80.9 T3 Absolute 500 - 2544 /ul 899 T4 % 31.6 - 65.7 % 31.9 T4 Absolute 337 - 1687 /ul 354 T8 % 10.0 - 40.0 % 49.2 (H) T8 Absolute 140 - 907 /ul 546 T4/T8 Ratio 0.8 - 3.7 0.6 (L) HIV Interpretation NDET Not Detected HIV Copies per/ml <40 HIV Log Copies/ml <1.60 A/P 41-year-old female with recently diagnosed HIV, detected on a life insurance exam, confirmed on testing through [facility] Her has reportedly also tested positive for HIV. She is tolerating treatment with genvoya well. She has obtained full viral suppression with a CD4 count of 354. She does not have any new symptoms. She has started taking a new vitamin called mitocore which does not show interactions with her genvoya. I discussed this with the pharmacist. I will plan to see her again in three months. PLAN: Continue treatment with genvoya Follow-up in 3 months Recheck viral load and CD4 count today Mike Hicks MD 06/23/2016 documented in this encounter Plan of Treatment Not on filedocumented as of this encounter Results (ABNORMAL) Complete Blood Count-W/Diff (06/23/2016 10:18 AM CDT) [facility] Method Time Signature WBC 3.9 (L) 4.0 - [facility] 11.0 k/ul [facility] RBC 4.70 4.0 - 5.2 [facility] M/ul [facility] Hemoglobin 13.3 12.0 - [facility] 16.0 g/dl LAB[facility] HCT 40.5 36.0 - [facility] 46.0 % LAB[facility] MCV 86.2 80 - 100 [facility] fl [facility] MCH 28.3 26 - 34 [facility] pg [facility] MCHC 32.8 32 - 36 [facility] g/dl [facility] RDW 13.4 11.5 - [facility] 14.5 % [facility] Platelets 211 150 - 450 [facility] k/ul [facility] PMN/Band 55 % [facility] Lymph 30 % [facility] [place] 8 % [facility] Eos 6 % [facility] Baso 1 % [facility] Neutrophil 2.2 1.8 - 7.7 [facility] Absolute k/ul LAB[facility] Lymph Absolute 1.2 1.0 - 4.8 [facility] k/ul [facility] [place] Absolute 0.3 0.1 - 0.7 [facility] k/ul [facility] Eos Absolute 0.2 0.0 - 0.5 [facility] k/ul [facility] Baso Absolute 0.0 0.0 - 0.2 [facility] k/ul [facility] Immature Gran 0 % [facility] Imm Gran 0.0 0 k/ul [facility] Absolute [facility] Specimen Anatomical Collection Method Collection Time Receive d Time (Source) Location / / Volume Laterality 06/23/2016 10:18 06/23/2016 AM CDT 10:20 AM CDT Narrative [facility] - 06/23/2016 1:29 PM C DT Performed at [facility], [address] [place] [address] ??[phone] Mike Hicks MD LAB_1 Performing Organization Address City/State/ZIP Code Phon e Number [facility] [phone] (ABNORMAL) T Cell Ratio (06/23/2016 10:18 AM CDT) Analysis Performed At Patho logist Time Signature T3 % 78.9 62.1 - [facility] 85.0 % LAB[facility] T3 Absolute 811 500 - [facility] 2,544 /ul LAB[facility] T4 % 32.2 31.6 - [facility] 65.7 % [facility] T4 Absolute 332 (L) 337 - [facility] 1,687 /ul LAB[facility] T8 % 46.5 (H) 10.0 - [facility] 40.0 % [facility] T8 Absolute 479 140 - 907 [facility] /ul [facility] T4/T8 Ratio 0.7 (L) 0.8 - 3.7 [facility] Specimen Anatomical Collection Method Collection Time Receive d Time (Source) Location / / Volume Laterality 06/23/2016 10:18 06/23/2016 AM CDT 10:20 AM CDT Narrative [facility] - 06/23/2016 1:43 PM C DT Performed at [facility] , [address] [place] [id number] Mike Hicks MD LAB_1 Performing Organization Address City/[facility] Code Phon e Number [facility] [phone] HIV 1 Quantitative PCR, Viral Load (06/23/2016 10:18 AM CDT) Component Value Ref Test Analysis Performed At Patholo gist Range Method Time Signature HIV Not NDET [facility] Interpretation Detected LAB[facility] Comment: Test Performed by Real Time PCR This result has been reported to the [facility] Department of Health. HIV Copies per/ml <40 Copies/ml [facility] HIV Log Copies/ml <1.60 Log Copies/ml [facility] Specimen Anatomical Collection Method Collection Time Receive d Time (Source) Location / / Volume Laterality 06/23/2016 10:18 06/23/2016 AM CDT 10:20 AM CDT Narrative [facility] - 06/25/2016 4:19 PM C DT Performed at [facility], [address] [place] [address] ??[phone] Mike Hicks MD LAB_1 Performing Organization Address City/State/ZIP Code Phon e Number [facility] [phone] documented in this encounter Visit Diagnoses Diagnosis Asymptomatic human immunodeficiency viru s (HIV) infection status ([facility]) - Primary Asymptomatic human immunodeficiency viru s (HIV) infection status Asymptomatic human immunodeficiency viru s (HIV) infection status ([facility]) Asymptomatic human immunodeficiency viru s (HIV) infection status documented in this encounter Care Teams Nail Specialist Relationship Specialty Start Date End Date Anabell Fisher DO PCP - General Family Practice 02/14/16 11/30/17 [address] [place] [address] documented as of this encounter
--- OUTSIDE RECORDS SUMMARY | 2021-11-06 20:44 | XMS_ITS | Encounter Summary ---
:1975 [facility] Address [address] [place] [address] Care Team Providers Name Role Phone CongAnabell figueroa DO Primary Care Provider Encounter Details Date Type Department Care Team Description 02/29/2016 Lab Visit Specialty [facility] human Laboratory immunodeficiency virus (HIV) [address] infection status (HRC) [place] [address] Social History Tobacco Use Types Packs/Day Years Used Date Smoking Tobacco: Never Smokeless Tobacco: Never Alcohol Use Standard Drinks/Week Comments Yes 7 (1 standard drink = 0.6 oz pure alcoho l) Alcohol Habits Answer Date Recorded How often do you have a drink containing 4 or more times a w chuloon[place]ick 02/01/2020 alcohol? How many drinks containing alcohol [...] Name Priority Date/Time Associated Diagnosis Comme nts HEPATITIS A ANTIBODY, Routine 02/29/2016 9:41 Asymptomatic hum an Results for IGG AM GUT CLEANER immunodeficiency virus this procedure (HIV) infection status are i n the (HRC) results section. CYTOMEGALOVIRUS IGG Routine 02/29/2016 9:41 Asymptomatic human Results for ANTIBODY AM GUT CLEANER immunodeficiency virus this procedure (HIV) infection status are i n the (HRC) results section. TREPONEMA SCREEN Routine 02/29/2016 9:41 Asymptomatic human Re sults for AM GUT CLEANER immunodeficiency virus this procedure (HIV) infection status are i n the (HRC) results section. HEPATITIS B SURFACE Routine 02/29/2016 9:41 Resul ts for ANTIBODY AM GUT CLEANER this procedure are in the results section. HIV-1 INTEGRASE Routine 02/29/2016 9:41 Asymptomatic human Res ults for GENOTYPE AM GUT CLEANER immunodeficiency virus this procedure (HIV) infection status are i n the (HRC) results section. CHLAMYDIA & GC, URINE Routine 02/29/2016 9:41 Asymptomatic hum an Results for (14 YEARS AND OLDER) AM GUT CLEANER immunodeficiency vir us this procedure (HIV) infection status are i n the (HRC) results section. TB GOLD, QUANTIFERON Routine 02/29/2016 9:41 Asymptomatic jm n Results for AM GUT CLEANER immunodeficiency virus this procedure (HIV) infection status are i n the (HRC) results section. HEPATITIS B RISK Routine 02/29/2016 9:41 Asymptomatic human Re sults for CASCADE AM GUT CLEANER immunodeficiency virus this procedure (HIV) infection status are i n the (HRC) results section. COMPLETE BLOOD Routine 02/29/2016 9:41 Asymptomatic human Resu lts for COUNT-W/DIFF AM GUT CLEANER immunodeficiency virus this procedure (HIV) infection status are i n the (HRC) results section. HIV-1 MUTATION Routine 02/29/2016 9:41 Asymptomatic human Resu lts for ANALYSIS AM GUT CLEANER immunodeficiency virus this procedure (HIV) infection status are i n the (HRC) results section. BASIC METABOLIC PANEL Routine 02/29/2016 9:41 Asymptomatic hum an Results for AM GUT CLEANER immunodeficiency virus this procedure (HIV) infection status are i n the (HRC) results section. TOXOPLASMA IGG Routine 02/29/2016 9:41 Asymptomatic human Resu lts for AM GUT CLEANER immunodeficiency virus this procedure (HIV) infection status are i n the (HRC) results section. T CELL RATIO Routine 02/29/2016 9:41 Asymptomatic human Result s for AM GUT CLEANER immunodeficiency virus this procedure (HIV) infection status are i n the (HRC) results section. BILIRUBIN, TOTAL & Routine 02/29/2016 9:41 Asymptomatic human Results for DIRECT AM GUT CLEANER immunodeficiency virus this procedure (HIV) infection status are i n the (HRC) results section. HEPATITIS C ANTIBODY, Routine 02/29/2016 9:41 Asymptomatic hum an Results for WITH REFLEX AM GUT CLEANER immunodeficiency virus this procedure (HIV) infection status are i n the (HRC) results section. HEPATITIS B CORE,AB Routine 02/29/2016 9:41 Resul ts for AM GUT CLEANER this procedure are in the results section. ALT (SGPT) Routine 02/29/2016 9:41 Asymptomatic human Result s for AM GUT CLEANER immunodeficiency virus this procedure (HIV) infection status are i n the (HRC) results section. ALKALINE PHOSPHATASE, Routine 02/29/2016 9:41 Asymptomatic hum an Results for TOTAL AM GUT CLEANER immunodeficiency virus this procedure (HIV) infection status are i n the (HRC) results section. documented in this encounter Results Hepatitis B Core Antibody (02/29/2016 9:41 AM GUT CLEANER) [employer] Method Time Signature Hepatitis B Negative NEGNR [facility] Core Ab (Non LABORATORIES Reactive) Specimen Anatomical Collection Method Collection Time Receive d Time (Source) Location / / Volume Laterality 02/29/2016 9:41 AM 7 9:49 GUT CLEANER AM GUT CLEANER Narrative [facility] - 02/29/2016 5:[address] Performed at [facility], [address] [place] [address] ??[phone] Mike Hicks MD LAB_1 Performing Organization Address City/[facility] Phon e Number [facility] [phone] Hepatitis B Surface Antibody (02/29/2016 9:41 AM GUT CLEANER) [employer] Method Time Signature Hep B Surf AB 93.0 >11.9 [facility] Result mIU/ml LABORATORIES Hep B Surf AB Positive (Reactive) [facility] Interp Individual is considered immune to HBV infection. LABORATORIES Specimen Anatomical Collection Method Collection Time Receive d Time (Source) Location / / Volume Laterality 02/29/2016 9:41 AM 7 9:49 GUT CLEANER AM GUT CLEANER Narrative [facility] - 02/29/2016 5:[address] Performed at [facility], [address] [place] [address] ??[phone] Mike Hicks MD LAB_1 Performing Organization Address City/[facility] Phon e Number [facility] [phone] HIV-1 Integrase Genotype (02/29/2016 9:41 AM GUT CLEANER) Component Value Ref Test Analysis Performed At [facility] Method Time Signature Value of Viral Information Not Given [facility] Load Unit: copies/mL LABORATORIES Date of Viral Information Not [facility] Load Given LABORATORIES Raltegravir NOT PREDICTED [facility] Resist. LABORATORIES Elvitegravir NOT PREDICTED [facility] Resist. LABORATORIES Dolutegravir NOT PREDICTED [facility] Reference range: See (NOTE) [place] BORATORIES Dolutegravir (NOTE) [facility] Mutations Detected: G193E LABO RATORIES The method used in this test is RT-PCR and sequencing of the HIV-1 integrase gene. The phrases resistance predicted and probable or emerging resistance refer to the application of the interpretive rules. The FDA has not reviewed all of the interpretive rules used by the laboratory to predict drug resistance. FDA may not currently recognize some of the HIV gene mutations reported as predictive of drug resistance, but the laboratory considers these mutations to be associated with resistance to anti-viral drugs based on current clinical or scientific studies. ? This test was developed and its analytical performance characteristics have been determined by [employer]. It has not been cleared or approved by FDA. This assay has been validated pursuant to the CLIA regulations and is used for clinical purposes. For more information on this test, go to: http://education.TuneStars/faq/TNC614 (This link is being provided for informational/educational purposes only.) Test performed at [facility] [address] [place] [address] ??[phone] Director: KARISSA WHATLEY MD Specimen Anatomical Collection Method Collection Time Receive d Time (Source) Location / / Volume Laterality 02/29/2016 9:41 AM 7 9:48 GUT CLEANER AM GUT CLEANER Mike Hicks MD LAB_1 Performing Organization Address City/State/ZIP Code Phon e Number [facility] [phone] (ABNORMAL) Complete Blood Count-W/Diff (02/29/2016 9:41 AM GUT CLEANER) [employer] Method Time Signature WBC 3.5 (L) 4.0 - [facility] 11.0 k/ul LABORATORIES RBC 4.96 4.0 - 5.2 [facility] M/ul LABORATORIES Hemoglobin 13.5 12.0 - [facility] 16.0 g/dl LABORATORIES HCT 40.6 36.0 - [facility] 46.0 % LABORATORIES MCV 81.9 80 - 100 [facility] fl LABORATORIES MCH 27.2 26 - 34 [facility] pg LABORATORIES MCHC 33.3 32 - 36 [facility] g/dl LAB[facility]IES RDW 12.6 11.5 - [facility] 14.5 % LABORATORIES Platelets 208 150 - 450 [facility] k/ul LAB[facility]ATORIES PMN/Band 51 % [facility] Lymph 29 % [facility] [place] 8 % [facility] Eos 10 % [facility] Baso 1 % [facility] Neutrophil 1.8 1.8 - 7.7 [facility] Absolute k/ul LABORATORIES Lymph Absolute 1.0 1.0 - 4.8 [facility] k/ul LABORATORIES [place] Absolute 0.3 0.1 - 0.7 [facility] k/ul LAB[facility]IES Eos Absolute 0.4 0.0 - 0.5 [facility] k/ul LAB[facility]IES Baso Absolute 0.0 0.0 - 0.2 [facility] k/ul LAB[facility] Immature Gran 1 % [facility] Imm Gran 0.0 0 k/ul [facility] Absolute LABORATORIES Specimen Anatomical Collection Method Collection Time Receive d Time (Source) Location / / Volume Laterality 02/29/2016 9:41 AM 7 9:49 GUT CLEANER AM GUT CLEANER Narrative [facility] - 02/29/2016 1:[address] Performed at [facility], [address] [place] [address] ??[phone] Mike Hicks MD LAB_1 Performing Organization Address City/State/ZIP Code Phon e Number [facility] [phone] Chlamydia & GC, Urine (02/29/2016 9:41 AM GUT CLEANER) [employer] Method Time Signature C.trachomatis Negative NEG [facility] , Urine LABORATORIES Comment: Test Performed by Chief Of Service Mediated Amplification Results obtained from this source are no t FDA approved. N. Gonorrhea, Urine Negative NEG [facility] Comment: Test Performed by Chief Of Service Mediated Amplification Results obtained from this source are no t FDA approved. Specimen Anatomical Collection Method Collection Time Receive d Time (Source) Location / / Volume Laterality 02/29/2016 9:41 AM 7 9:49 GUT CLEANER AM GUT CLEANER Narrative [facility] - 02/29/2016 4:[address] Performed at [facility], [address] [place] [address] ??[id number] Mike Hicks MD LAB_1 Performing Organization Address [facility] Code Phon e Number [facility] [phone] Bilirubin, Total & Direct (02/29/2016 9:41 AM GUT CLEANER) athologist Signature Bilirubin, 0.4 0.2 - 1.2 [facility] Total mg/dl LABORATORIES Bilirubin, 0.2 0.0 - 0.5 [facility] Direct mg/dl LABORATORIES Specimen Anatomical Collection Method Collection Time Receive d Time (Source) Location / / Volume Laterality 02/29/2016 9:41 AM 7 9:49 GUT CLEANER AM GUT CLEANER Narrative [facility] - 02/29/2016 12:35 PM GUT CLEANER Performed at [facility], [address] [place] [address] ??[phone] Mike Hicks MD LAB_1 Performing Organization Address [facility] Phon e Number [facility] [phone] Alkaline Phosphatase, Total (02/29/2016 9:41 AM GUT CLEANER) [facility] gist Method Time Signature Alkaline 69 40 - 150 [facility] Phosphatase U/L LABORATORIES Specimen Anatomical Collection Method Collection Time Receive d Time (Source) Location / / Volume Laterality 02/29/2016 9:41 AM 7 9:49 GUT CLEANER AM GUT CLEANER Narrative [facility] - 02/29/2016 12:35 PM GUT CLEANER Performed at [facility], [address] [place] [address] ??[phone] Mike Hicks MD LAB_1 Performing Organization Address City/[facility]/ZIP Code Phon e Number [facility] [phone] ALT (SGPT) (02/29/2016 9:41 AM GUT CLEANER) athologist Signature ALT (SGPT) 19 0 - 55 U/L [facility] Specimen Anatomical Collection Method Collection Time Receive d Time (Source) Location / / Volume Laterality 02/29/2016 9:41 AM 7 9:49 GUT CLEANER AM GUT CLEANER Narrative [facility] - 02/29/2016 12:35 PM GUT CLEANER Performed at [facility], [address] [place] [address] ??[phone] Mike Hicks MD LAB_1 Performing Organization Address [facility] Phon e Number [facility] [phone] (ABNORMAL) Basic Metabolic Panel (02/29/2016 9:41 AM GUT CLEANER) [employer] Method Time Signature Sodium 137 136 - 145 [facility] mmol/L LABORATORIES Potassium 3.7 3.5 - 5.1 [facility] mmol/L LAB[facility] Chloride 104 98 - 109 [facility] mmol/L LAB[facility]IES CO2 26 20 - 29 [facility] mmol/L LAB[facility] Anion Gap 7 7 - 16 [facility] (calc.) mmol/L LABORATORIES Glucose 67 (L) 70 - 180 [facility] mg/dl LAB[facility]ATORIES Calcium 9.1 8.4 - 10.2 [facility] mg/dl LABORATORIES BUN 7 7 - 26 [facility] mg/dl LAB[facility]ATORIES Creatinine 0.71 0.55 - [facility] 1.02 mg/dl LABORATORIES GFR, Estimated >60 >60 [facility] ml/min/1.7 LABORATORIES 3m2 GFR, Est., If >60 >60 [facility] Black ml/min/1.7 LABORATORIES 3m2 Specimen Anatomical Collection Method Collection Time Receive d Time (Source) Location / / Volume Laterality 02/29/2016 9:41 AM 7 9:49 GUT CLEANER AM GUT CLEANER Narrative [facility] - 02/29/2016 12:35 PM GUT CLEANER Performed at [facility], [address] [place] [address] ??[phone] Mike Hicks MD LAB_1 Performing Organization Address [facility] Phon e Number [facility] [phone] Cytomegalovirus IgG Antibody (02/29/2016 9:41 AM GUT CLEANER) Component Value Ref Test Analysis Performed At [facility] Method Time Signature Cytomegalovirus Positive [facility] IgG Reference range: Negative LABO RATORIES Cytomegalovirus (NOTE) [facility] IgG Presence of detectable CMV IgG antibodies. A positive resu lt LABORATORIES generally indicates either recent or past exposure to the CM V. Specimen Anatomical Collection Method Collection Time Receive d Time (Source) Location / / Volume Laterality 02/29/2016 9:41 AM 7 9:49 GUT CLEANER AM GUT CLEANER Narrative [facility] - 03/03/2016 12:20 PM GUT CLEANER Performed at [facility], [address] [place] [id number] Mike Hicks MD LAB_1 Performing Organization Address City/[facility]/ZIP Code Phon e Number [facility] [phone] Hepatitis A Antibody, IgG (02/29/2016 9:41 AM GUT CLEANER) [employer] Method Time Signature Hepatitis A Positive POSR [facility] Ab, IgG (Reactive) LABORATORIES Specimen Anatomical Collection Method Collection Time Receive d Time (Source) Location / / Volume Laterality 02/29/2016 9:41 AM 7 9:49 GUT CLEANER AM GUT CLEANER Narrative [facility] - 02/29/2016 1:[address] Performed at [facility], [address] [place] [address] ??[phone] Mkie Hicks MD LAB_1 Performing Organization Address [facility] Phon e Number [facility] [phone] Hepatitis B Risk [place] (02/29/2016 9:41 AM GUT CLEANER) [employer] Method [place] Signature HBsAg Negative (Non NEGNR [facility] Reactive) LABORATORIES Comment: To aid in the assessment of a patient's risk to HBV, the following tests have been added: HBcAb and HBsAb. Specimen Anatomical Collection Method Collection Time Receive d Time (Source) Location / / Volume Laterality 02/29/2016 9:41 AM 7 9:49 GUT CLEANER AM GUT CLEANER Narrative [facility] - 02/29/2016 3:[address] Performed at [facility], [address] [place] [address] ??[phone] Mike Hicks MD LAB_1 Performing Organization Address City/[facility] Code Phon e Number [facility] [phone] Hepatitis C Antibody, with Reflex (02/29/2016 9:41 AM GUT CLEANER) [employer] Method Time Signature Anti-HCV Negative (Non NEGNR [facility] Reactive) LABORATORIES Comment: Antibodies to HCV not detected. Does not exclude the possibility of exposure to HCV. Specimen Anatomical Collection Method Collection Time Receive d Time (Source) Location / / Volume Laterality 02/29/2016 9:41 AM 7 9:49 GUT CLEANER AM GUT CLEANER Narrative [facility] - 02/29/2016 12:42 PM GUT CLEANER Performed at [facility], [address] [place] [address] ??[phone] Mike Hicks MD LAB_1 Performing Organization Address City/State/ZIP Code Phon e Number [facility] [phone] (ABNORMAL) HIV-1 Mutation Analysis (02/29/2016 9:41 AM GUT CLEANER) Component Value Ref Test Analysis Performed At [facility] gist Range Method Time Signature HIV 1 DETECTED [facility] Genotype Reference range: See (NOTE) VITALIY CASTANEDA (A) HIV 1 (NOTE) [facility] Genotype HIV Subtype: B LABORATORIES Antiretroviral drugs ?Resistance ??Mutations Detected ? Predicted ? ! ?? ! ? NRTIs ? ! ?? ! ZDV (zidovudine or Retrovir) ?! NO! ? ABC (abacavir or Ziagen) ?! NO! ? ddI (didanosine or Videx) ? ! NO! ? 3TC (lamivudine or Epivir) ?! NO! ? FTC (emtricitabine or Emtriva) ??! NO! ? d4T (stavudine or Zerit) ?! NO! ? TDF (tenofovir or Viread) ? ! NO! ? !___! ? ! ?? ! ? NNRTIs ?! ?? ! ETR (etravirine or Intelence) ?? ! NO! ? EFV (efavirenz or Sustiva) ?! NO! ? NVP (nevirapine or Viramune) ?! NO! ? RPV (rilpivirine or Edurant) ?! NO! ? !___! ? ! ?? ! ? PIs ? ! ?? ! FPV (fos-amprenavir or Lexiva) ??! NO! ? IDV (indinavir or Crixivan) ? ! NO! ? NFV (nelfinavir or Viracept) ?! NO! ? SQV (saquinavir or Invirase) ?! NO! ? LPV (lopinavir or Kaletra) ?! NO! ? ATV (atazanavir or Reyataz) ? ! NO! ? TPV (tipranavir or Aptivus) ? ! NO! ? DRV (darunavir or Prezista) ? ! NO! ? ! ?? ! !___! PRB = PROBABLE OR EMERGING RESISTANCE OTHER MUTATIONS DETECTED: RT GENE MUTATIONS: NONE [place] GENE MUTATIONS: E35D,M36I,L63P,A71V,V77I,I93L [employer] Oct 2015 Interpretation Algorithm The method used in this test is RT-PCR and sequencing ?? Of the HIV-1 polymerase gene. The phrases resistance predicted and probable ?? Or emerging resistance refer to the application of ?? The interpretive rules. The FDA has not reviewed all of the interpretive rules used by the laboratory ?? to predict drug resistance. FDA may not currently ?? recognize some of the HIV gene mutations reported as ?? predictive of drug resistance, but the laboratory ?? considers these mutations to be associated with ?? resistance to anti-viral drugs based on current ?? clinical or scientific studies. The test has been ?? validated pursuant to CLIA regulations and is not ?? considered investigational or for research use only. Treatment decisions should be made in consideration of ?? All relevant clinical and laboratory findings and the prescribing information for the drugs. This test was developed and its analytical ?? Performance characteristics have been determined by ?? [employer]. It has not been cleared or approved ?? by FDA. This assay has been validated pursuant to the ?? CLIA regulations and is used for clinical purposes. Test performed at [facility] [address] [place], [place] ??[phone] Director: KARISSA WHATLEY MD Specimen Anatomical Collection Method Collection Time Receive d Time (Source) Location / / Volume Laterality 02/29/2016 9:41 AM 7 9:48 GUT CLEANER AM GUT CLEANER Mike Hicks MD LAB_1 Performing Organization Address City/[facility] Phon e Number [facility] [phone] (ABNORMAL) T Cell Ratio (02/29/2016 9:41 AM GUT CLEANER) Analysis Performed At Patho logist Time Signature T3 % 77.2 62.1 - [facility] 85.0 % LABORATORIES T3 Absolute 669 500 - [facility] 2,544 /ul LABORATORIES T4 % 31.4 (L) 31.6 - [facility] 65.7 % LABORATORIES T4 Absolute 272 (L) 337 - [facility] 1,687 /ul LABORATORIES T8 % 45.3 (H) 10.0 - [facility] 40.0 % LABORATORIES T8 Absolute 393 140 - 907 [facility] /ul LABORATORIES T4/T8 Ratio 0.7 (L) 0.8 - 3.7 [facility] Specimen Anatomical Collection Method Collection Time Receive d Time (Source) Location / / Volume Laterality 02/29/2016 9:41 AM 7 9:49 GUT CLEANER AM GUT CLEANER Narrative [facility] - 02/29/2016 1:[address] Performed at [facility] , [address] [place] [id number] Mike Hicks MD LAB_1 Performing Organization Address City/[facility] Phon e Number [facility] [phone] TB Gold, Quantiferon (02/29/2016 9:41 AM GUT CLEANER) Component Value Ref Test Analysis Performed At Patholo gist Range Method Time Signature TB Gold, Negative NEG [facility] Quantiferon LABORATORIES TB NIL Value 0.16 IU/mL [facility] TB Ag-NIL <0.01 IU/mL [...] IFN-gamma level cannot be olga lidia elated to stage or degree of infection, [...] Time (Source) Location / / Volume Laterality 02/29/2016 9:41 AM 7 9:49 GUT CLEANER AM GUT CLEANER Narrative [facility] - 03/03/2016 1:[address] Performed at [facility] , [address] [place] [address] Mike Hicks MD LAB_1 Performing Organization Address City/State/ZIP Code Phon e Number [facility] [phone] Toxoplasma IgG (02/29/2016 9:41 AM GUT CLEANER) Component Value Ref Test Analysis Performed At [employer] [facility] [employer] Range Method Time Signature Toxoplasma < OR = 0.90 [facility] IgG Ab Reference range: See (NOTE) [place] Toxoplasma (NOTE) [facility] IgG Ab ? Value ?Interpretation LABORATORIES ? ----- ?--- ? < or = 0.90 ?Negati ve ? 0.91-1.09 ?Equiv ocal ? > or = 1.10 ?Positi ve ?? A positive result indicates infection with Toxoplasma gondii at some time, but does not differentiate between an active or past infection. ?? Test performed at [facility] [address] ??[phone] Director: DORIE LLAMAS MD Specimen Anatomical Collection Method Collection Time Receive d Time (Source) Location / / Volume Laterality 02/29/2016 9:41 AM 7 9:48 GUT CLEANER AM GUT CLEANER Mike Hicks MD LAB_1 Performing Organization Address City/[facility] Phon e Number [facility] [phone] Treponema Screen (02/29/2016 9:41 AM GUT CLEANER) Patholo gist Method Time Signature Treponema Non Reactive [facility] Screen Reference range: Non Reactive LABORATORIES Specimen Anatomical Collection Method Collection Time Receive d Time (Source) Location / / Volume Laterality 02/29/2016 9:41 AM 7 9:48 GUT CLEANER AM GUT CLEANER Narrative [facility] - 03/03/2016 10:45 AM GUT CLEANER Performed at [facility], [address] [place] [id number] Mike Hicks MD LAB_1 Performing Organization Address City/State/[facility] Phon e Number [facility] [phone] documented in this encounter Visit Diagnoses Diagnosis Asymptomatic human immunodeficiency viru s (HIV) infection status ([facility]) Asymptomatic human immunodeficiency viru s (HIV) infection status documented in this encounter Care Teams Material Handling Crew Supervisor Relationship Specialty Start Date End Date Anabell Fisher DO PCP - General Family Practice 02/14/16 11/30/17 [address] [place] [address] documented as of this encounter
--- OUTSIDE RECORDS SUMMARY | 2021-11-06 20:44 | XMS_ITS | Encounter Summary ---
:1975 Author Organization [facility] Address [address], [place] [address] Care Team Providers Name Role Phone Anabell Fisher DO Primary Care Provider Reason for Referral Procedure/Equipment (Routine) - Incomplete Specialty Diagnoses / Procedures Referred By Contact Refer red To Contact Diagnoses Asymptomatic human immunodeficiency virus (HIV) infection status ([facility]) Mike Hicks MD Procedures XR Chest [address] Views [address] [place] [address] Referral ID Status Reason Start Date Expiration Date Visits V isits Requested Authorized [id number] Incomplete 02/29/2016 05/30/2017 1 1 CTOR PART Reason for Visit Reason Comments Consult, New Patient HIV Consult/Transfer Care (Routine) - Closed Specialty Diagnoses / Procedures Referred By Contact Refer red To Contact Diagnoses Screening for HIV (human immunodeficiency virus) Anabell Fisher DO [address] [place], [place] [address] Referral ID Status Reason Start Date Expiration Date Visits Requ ested Visits Authorized [id number] Closed 02/20/2016 05/21/2017 1 1 Encounter Details Date Type Department Care Team Description 02/29/2016 Office Visit [facility] Mike Hicks omatic human 401 Tiffany Atkins MD immunodeficiency virus Disease [address] (HIV) infection status [address] [place], [place] (HRC) (Primary Dx) [place] [phone] Social History Tobacco Use Types Packs/Day Years Used Date Smoking Tobacco: Never Smokeless Tobacco: Never Alcohol Use Standard Drinks/Week Comments Yes 7 (1 standard drink = 0.6 oz pure alcoho l) Alcohol Habits Answer Date Recorded How often do you have a drink containing 4 or more times a w [place] 02/01/2020 alcohol? How many drinks containing alcohol do you have Not asked on a typical day when you are drinking? How often do you have six or more drinks on one Not asked occasion? Comment: Not asked Sex Assigned at Date Recorded Not on file documented as of this encounter Last Filed Vital Signs Vital Sign Reading Time Taken Comments Blood Pressure 116/70 02/29/2016 8:21 AM DIRECTOR PART Pulse 82 02/29/2016 8:21 AM DIRECTOR PART Temperature 36.9 ??C (98.5 ??F) 02/29/2016 8:21 AM DIRECTOR PART Respiratory Rate - - Oxygen Saturation - - Inhaled Oxygen Concentration - - Weight 59.7 kg (131 lb 9.6 oz) 02/29/2016 8:21 AM DIRECTOR PART Height 170.2 cm (5' 7) 02/29/2016 8:21 AM DIRECTOR PART Body Mass Index 20.61 02/29/2016 8:21 AM DIRECTOR PART documented in this encounter Patient Instructions Patient InstructionsMike Hicks MD - 02/29/2016 9:08 AM CST Follow up in 2/3 at 9:10. You can go to the lab after this visit. Then you can go to radiology for an X-ray on the 1st floor. Call [phone] if you have questions prior to your visit. Mike Hicks MD 02/29/2016 CTOR PART documented in this encounter Progress Notes Mike Hicks MD - 02/29/2016 8:25 AM CST This patient comes in for [...] a viral load of 38,000. She comes in to discuss these results. She notes that she has been feeling fine other than a respiratory infection had a few weeks ago. Shehas recovered from this well. She states that she has a difficulty with vaginal yeast and bacterial infections over the last year. She denies any skin rash. No respiratory complaints. No fevers, chillsor night sweats. Her weight has been stable. No nausea, vomiting or diarrhea. No urinary symptoms. No depression or anxiety. She has been for 11 years. She has not had any other sexual partners during that time. Priorto her marriage, she reports a couple of male partners. Her has also tested positive for HIV. He has an initial visit in our clinic scheduled for next week. She denies any history of IV drug abuse. She denies any significant blood exposure. She does not believe that she required a blood transfusion. She previously worked as a [employer] where she would occasionally be stuck with a needle. She was never wear the new the needles had been in one of the other wo rkers. That was more than 11 years ago as well. She does not recall previous HIV testing. She notes that she has done some research into HIV since receiving this diagnosis. The remainder of the ROS is completed and is otherwise negative. Social history She lives in [place] with her . 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 Theyhave dogs and cats at home. She also has a horse at a different site. They do not have any children.No tobacco use. She drinks a glass of wine every evening. No illegal drugs. No IV drug abuse. No recent travel. She previously has spent time in [place], [place], [place] and [place]. She took a tripto the [place] a few years ago. She previously worked as a [employer] more than 11 years ago. Patient Active Problem List Diagnosis ??? S/P hysterectomy ??? Pap test history ??? Screening for HIV (human immunodeficiency virus) ??? Asthma ([facility]) Family history Her grandmother had amyotrophic lateral sclerosis. Her father is going through treatment for multiple myeloma. Her mother has depression. BP 116/70 mmHg Pulse 82 Temp(Src) 98.5 ??F (36.9 ??C) (Oral) Ht 5' 7 (1.702 m) Wt 131 lb 9.6 oz (59.693 kg) BMI 20.61 kg/m2 Pt A, in NAD answering questions appropriately Oropharynx: no lesions, no exudates No maxillary sinus tenderness Neck: supple, no adenopathy No axillary adenopathy Lungs: CTA B CV RRR s1s2 no murmur Abd: S/NT/ND +BS no guarding, no rebound, no masses Ext: no edema, NT Skin no rash No joint swelling LABS: HIV fourth-generation test positive HIV confirmation positive Component Latest Ref Rng 02/20/2016 HIV Interpretation NDET Detected (A) HIV Copies per/ml 07985 HIV Log Copies/ml 4.59 A/P 41-year-old female with recently diagnosed HIV, detected on a life insurance exam, confirmed on testing through health partners Her has reportedly also tested positive for HIV. He has not had his initial clinic visit. Itis not entirely clear which of the partners contracted the disease first as they have reported no other sexual partners in the last 11 years and no other high risk exposures. In any event, she is asymptomatic at this time other than frequent vaginal yeast infections. Today will be an opportunity to obtain her baseline lab testing including her CD4 count. I will also do resistance testing in preparation for treatment. She will have testing for other sexually transmitted diseases. She will have a baseline chest x-ray today. I have had a chance to answer her questions in regard to the natural history of HIV and the role of medical treatment. She seems to have a good understanding of the disease. I will plan to have her come back in two weeks to discuss lab results and potentially to begin treatment. She has received the counseling from our social studies teacher as well. She will receive an influenza vaccination today. PLAN: Baseline lab testing today HIV resistance testing Chest x-ray Influenza vaccination Plan for follow-up in two weeks to discuss lab results and potentially start HIV therapy Mike Hicks MD 02/29/2016 CTOR PART documented in this encounter Plan of Treatment Not on filedocumented as of this encounter Results XR Chest 2 Views (02/29/2016 10:15 AM DIRECTOR PART) Anatomical Region Laterality Modality Chest, Lung Computed Radiography Specimen (Source) Anatomical Collection Method Collection Time Re ceived Time Location / / Volume Laterality 02/29/2016 10:15 AM DIRECTOR PART Narrative 02/29/2016 8:25 PM DIRECTOR PART XR CHEST 2 VIEWS 02/29/2016 10:15 AM INDICATION: Cough. ? COMPARISON: None. FINDINGS: Negative chest. Both lungs maxi ar. Procedure Note Christiano Velez MD - 02/29/2016Form atting of this note might be different from the original. XR CHEST 2 VIEWS 02/29/2016 10:15 AM INDICATION: Cough. COMPARISON: None. FINDINGS: Negative chest. Both lungs maxi ar. Mike Hicks MD RAD GD HIV-1 Integrase Genotype (02/29/2016 9:41 AM DIRECTOR PART) Component Value Ref Test Analysis Performed At [facility] Range Method Time Signature Value of Viral Information [...] analytical performance characteristics have been determined by [employer]. It has not been cleared or approved by FDA. This assay has been validated pursuant to the CLIA regulations and is used for clinical purposes. For more information on this test, go to: http://education.[employer]/faq/AOR895 (This link is being provided for informational/educational purposes only.) Test performed at [facility] [address] [place], [place] ??[phone] Director: KARISSA WHATLEY MD Specimen Anatomical Collection Method Collection Time Receive d Time (Source) Location / / Volume Laterality 02/29/2016 9:41 AM 7 9:48 DIRECTOR PART AM DIRECTOR PART Mike Hicks MD LAB_1 Performing Organization Address City/State/ZIP Code Phon e Number [facility] [phone] (ABNORMAL) Complete Blood Count-W/Diff (02/29/2016 9:41 AM DIRECTOR PART) [facility] gist Method Time Signature WBC 3.5 (L) 4.0 [...] [facility] Lymph 29 % [facility] Wise 8 % [facility] Eos 10 % [facility] Baso 1 % [facility] Neutrophil 1.8 1.8 - 7.7 [facility] Absolute k/ul [facility] Lymph Absolute 1.0 1.0 - 4.8 [facility] k/ul [facility] Wise Absolute 0.3 0.1 - 0.7 [facility] k/ul [facility] Eos Absolute 0.4 0.0 - 0.5 [facility] k/ul [facility] Baso Absolute 0.0 0.0 - 0.2 [facility] k/ul [facility] Immature Gran 1 % [facility] Imm Gran 0.0 0 k/ul [facility] Absolute [facility] Specimen Anatomical Collection Method Collection Time Receive d Time (Source) Location / / Volume Laterality 02/29/2016 9:41 AM 7 9:49 DIRECTOR PART AM DIRECTOR PART Narrative [facility] - 02/29/2016 1:[address] Performed at [facility], [address] [place] [address] ??[phone] Mike Hicks MD LAB_1 Performing Organization Address [facility]/ZIP Code Phon e Number [facility] [phone] Chlamydia & GC, Urine (02/29/2016 9:41 AM DIRECTOR PART) [facility] Method Time Signature C.trachomatis Negative NEG [facility] , Urine [facility] Comment: Test Performed by Plant Hr [employer] Mediated Amplification Results obtained from this source are no t FDA approved. N. Gonorrhea, Urine Negative NEG [facility] Comment: Test Performed by Plant H[employer] Mediated Amplification Results obtained from this source are no t FDA approved. Specimen Anatomical Collection Method Collection Time Receive d Time (Source) Location / / Volume Laterality 02/29/2016 9:41 AM 7 9:49 DIRECTOR PART AM DIRECTOR PART Narrative [facility] - 02/29/2016 4:[address] Performed at [facility], [address] [place] [address] ??[phone] Mike Hicks MD LAB_1 Performing Organization Address [facility] Phon e Number [facility] [phone] Bilirubin, Total & Direct (02/29/2016 9:41 AM DIRECTOR PART) athologist Signature Bilirubin, 0.4 0.2 - 1.2 [facility] Total mg/dl [facility] Bilirubin, 0.2 0.0 - 0.5 [facility] Direct mg/dl [facility] Specimen Anatomical Collection Method Collection Time Receive d Time (Source) Location / / Volume Laterality 02/29/2016 9:41 AM 7 9:49 DIRECTOR PART AM DIRECTOR PART Narrative [facility] - 02/29/2016 12:35 PM DIRECTOR PART Performed at [facility], [address] [place] [address] ??[phone] Mike Hicks MD LAB_1 Performing Organization Address [facility] Phon e Number [facility] [phone] Alkaline Phosphatase, Total (02/29/2016 9:41 AM DIRECTOR PART) [facility] Method Time Signature Alkaline 69 40 - 150 [facility] Phosphatase U/L [facility] Specimen Anatomical Collection Method Collection Time Receive d Time (Source) Location / / Volume Laterality 02/29/2016 9:41 AM 7 9:49 DIRECTOR PART AM DIRECTOR PART Narrative [facility] - 02/29/2016 12:35 PM DIRECTOR PART Performed at [facility], [address] [place] [address] ??[phone] Mike Hicks MD LAB_1 Performing Organization Address [facility] Phon e Number [facility] [phone] ALT (SGPT) (02/29/2016 9:41 AM DIRECTOR PART) P athologist Signature ALT (SGPT) 19 0 - 55 U/L [facility] Specimen Anatomical Collection Method Collection Time Receive d Time (Source) Location / / Volume Laterality 02/29/2016 9:41 AM 7 9:49 DIRECTOR PART AM DIRECTOR PART Narrative [facility] - 02/29/2016 12:35 PM DIRECTOR PART Performed at [facility], [address] [place] [address] ??[phone] Mike Hicks MD LAB_1 Performing Organization Address City/[facility] Phon e Number [facility] [phone] (ABNORMAL) Basic Metabolic Panel (02/29/2016 9:41 AM DIRECTOR PART) Patholo gist Method Time Signature Sodium 137 136 - [...] Volume Laterality 02/29/2016 9:41 AM 7 9:49 DIRECTOR PART AM DIRECTOR PART Narrative [facility] - 02/29/2016 12:35 PM DIRECTOR PART Performed at [facility], [address] [place] [address] ??[phone] Mike Hicks MD LAB_1 Performing Organization Address [facility]/ZIP Code Phon e Number [facility] [phone] Cytomegalovirus IgG Antibody (02/29/2016 9:41 AM DIRECTOR PART) Component Value Ref Test Analysis Performed At [facility] Method Time Signature Cytomegalovirus Positive [facility] IgG Reference range: Negative LABO RATORIES Cytomegalovirus (NOTE) [facility] IgG Presence of detectable CMV IgG antibodies. A positive resu lt LABORATORIES generally indicates either recent or past exposure to the CM V. Specimen Anatomical Collection Method Collection Time Receive d Time (Source) Location / / Volume Laterality 02/29/2016 9:41 AM 7 9:49 DIRECTOR PART AM DIRECTOR PART Narrative [facility] - 03/03/2016 12:20 PM DIRECTOR PART Performed at [facility], [address] [place] [address] Mike Hicks MD LAB_1 Performing Organization Address [facility] Phon e Number [facility] [phone] Hepatitis A Antibody, IgG (02/29/2016 9:41 AM DIRECTOR PART) [facility] Signature Hepatitis A Positive POSR [facility] Ab, IgG (Reactive) LABORATORIES Specimen Anatomical Collection Method Collection Time Receive d Time (Source) Location / / Volume Laterality 02/29/2016 9:41 AM 7 9:49 DIRECTOR PART AM DIRECTOR PART Narrative [facility] - 02/29/2016 1:[address] Performed at [facility], [address] [place] [address] ??[phone] Mike Hicks MD LAB_1 Performing Organization Address City/[facility] Code Phon e Number [facility] [phone] Hepatitis B Risk [place] (02/29/2016 9:41 AM DIRECTOR PART) [facility] Method [place] Signature HBsAg Negative (Non NEGNR [facility] Reactive) LABORATORIES Comment: To aid in the assessment of a patient's risk to HBV, the following tests have been added: HBcAb and HBsAb. Specimen Anatomical Collection Method Collection Time Receive d Time (Source) Location / / Volume Laterality 02/29/2016 9:41 AM 7 9:49 DIRECTOR PART AM DIRECTOR PART Narrative [facility] - 02/29/2016 3:[address] Performed at [facility], [address] [place] [address] ??[phone] Mike Hicks MD LAB_1 Performing Organization Address City/[facility] Phon e Number [facility] [phone] Hepatitis C Antibody, with Reflex (02/29/2016 9:41 AM DIRECTOR PART) [facility] Method Time Signature Anti-HCV Negative (Non NEGNR [facility] Reactive) LABORATORIES Comment: Antibodies to HCV not detected. Does not exclude the possibility of exposure to HCV. Specimen Anatomical Collection Method Collection Time Receive d Time (Source) Location / / Volume Laterality 02/29/2016 9:41 AM 7 9:49 DIRECTOR PART AM DIRECTOR PART Narrative [facility] - 02/29/2016 12:42 PM DIRECTOR PART Performed at [facility], [address] [place] [address] ??[phone] Mike Hicks MD LAB_1 Performing Organization Address City/[facility] Phon e Number [facility] [phone] (ABNORMAL) HIV-1 Mutation Analysis (02/29/2016 9:41 AM DIRECTOR PART) Component Value Ref Test Analysis Performed At [facility] Method Time Signature HIV 1 DETECTED [facility] Genotype Reference range: See (NOTE) VITALIY CASTANEDA (A) HIV 1 (NOTE) [facility] Genotype HIV Subtype: B LABORATORIES Antiretroviral drugs [...] OTHER MUTATIONS DETECTED: RT GENE MUTATIONS: NONE IN GENE MUTATIONS: E35D,M36I,L63P,A71V,V77I,I93L [facility] Oct 2015 Interpretation Algorithm The method used [...] Performance characteristics have been determined by ?? [employer]. It has not been cleared or approved ?? by FDA. This assay has been validated pursuant to the ?? CLIA regulations and is used for clinical purposes. Test performed at [facility] [address] [place] [address] ??[phone] Director: KARISSA WHATLEY MD Specimen Anatomical Collection Method Collection Time Receive d Time (Source) Location / / Volume Laterality 02/29/2016 9:41 AM 7 9:48 DIRECTOR PART AM DIRECTOR PART Mike Hicks MD LAB_1 Performing Organization Address City/State/ZIP Code Phon e Number [facility] [phone] (ABNORMAL) T Cell Ratio (02/29/2016 9:41 AM DIRECTOR PART) Analysis Performed At Patho logist Time Signature [...] Volume Laterality 02/29/2016 9:41 AM 7 9:49 DIRECTOR PART AM DIRECTOR PART Narrative [facility] - 02/29/2016 1:[address] Performed at [facility] , [address] [place] [address] Mike Hicks MD LAB_1 Performing Organization Address City/State/ZIP Code Phon e Number [facility] [phone] TB Gold, Quantiferon (02/29/2016 9:41 AM DIRECTOR PART) Component Value Ref Test Analysis Performed At [facility] Range Method Time Signature TB Gold, Negative [...] Volume Laterality 02/29/2016 9:41 AM 7 9:49 DIRECTOR PART AM DIRECTOR PART Narrative [facility] - 03/03/2016 1:[address] Performed at [facility] , [address] [place] [phone] Mike Hicks MD LAB_1 Performing Organization Address City/[facility]/ZIP Code Phon e Number [facility] [phone] Toxoplasma IgG (02/29/2016 9:41 AM DIRECTOR PART) Component Value Ref Test Analysis Performed At [facility] Range Method Time Signature Toxoplasma < OR = 0.90 [facility] IgG Ab Reference range: See (NOTE) [place] [facility] Toxoplasma (NOTE) [facility] IgG Ab ? Value ?Interpretation LABORATORIES ? ----- ?--- ? < or = 0.90 ?Negati ve ? 0.91-1.09 ?Equiv ocal ? > or = 1.10 ?Positi ve ?? A positive result indicates infection with Toxoplasma gondii at some time, but does not differentiate between an active or past infection. ?? Test performed at [facility] [address] ??[phone] Director: DORIE LLAMAS MD Specimen Anatomical Collection Method Collection Time Receive d Time (Source) Location / / Volume Laterality 02/29/2016 9:41 AM 7 9:48 DIRECTOR PART AM DIRECTOR PART Mike Hicks MD LAB_1 Performing Organization Address City/[facility]/ZIP Code Phon e Number [facility] [phone] Treponema Screen (02/29/2016 9:41 AM DIRECTOR PART) [facility] Method Time Signature Treponema Non Reactive [facility] Screen Reference range: Non Reactive LABORATORIES Specimen Anatomical Collection Method Collection Time Receive d Time (Source) Location / / Volume Laterality 02/29/2016 9:41 AM 7 9:48 DIRECTOR PART AM DIRECTOR PART Narrative [facility] - 03/03/2016 10:45 AM DIRECTOR PART Performed at [facility], [facility] [place] [address] Mike Hicks MD LAB_1 Performing Organization Address City/State/ZIP Code Phon e Number [facility] [phone] documented in this encounter Visit Diagnoses Diagnosis [...] status documented in this encounter Care Teams Nut Dehydrator Operator Relationship Specialty Start Date End Date Anabell Fisher DO PCP - General Family Practice 02/14/16 11/30/17 [address] [place] [address] documented as of this encounter
--- OUTSIDE RECORDS SUMMARY | 2021-11-06 20:44 | XMS_ITS | Encounter Summary ---
:1975 Author Organization [facility] Address [address] [place] [address] Care Team Providers Name Role Phone Anabell Fisher DO Primary Care Provider Encounter Details Date Type Department Care Team Description 02/20/2016 Lab Visit [facility] ry Screening for HIV (human [address] immunodeficiency virus) [place], [place] [address] Social History Tobacco Use Types Packs/Day Years Used Date Smoking Tobacco: Never Smokeless Tobacco: Never Alcohol Use Standard Drinks/Week Comments Yes 0 (1 standard drink = 0.6 oz pure alcoho l) occ Alcohol Habits Answer Date Recorded How often do you have a drink containing 4 or more times a w unga 02/01/2020 alcohol? How many drinks containing alcohol do you have Not asked on a typical day when you are drinking? How often do you have six or more drinks on one Not asked occasion? Comment: occ 07/20/2015 Sex Assigned at Date Recorded Not on file documented as of this encounter Progress Notes Princess Bahena RN - 02/21/2016 3:33 PM TECHNICAL ACCOUNT MANAGER Quick Note: Please see telephone encounter for details.Princess Bahena RN 02/21/2016, 3:33 PM NICAL ACCOUNT MANAGER Emory Spring RN - 02/21/2016 3:08 PM TECHNICAL ACCOUNT MANAGER Quick Note: HIV case report filed with [facility]. Emory Spring RN Social Work Assistant [facility] [phone] NICAL ACCOUNT MANAGER Anabell Fisher DO - 02/21/2016 6:44 AM TECHNICAL ACCOUNT MANAGER Quick Note: Notation added to OPS Nicholas Zendejas - Your screening test is positive and it is now in the confirmation process. I will have one of the clinic nurses reach out today to help assist in scheduling with infectious disease. Please let me know if there is anything else I can do to offer support. Anabell Fisher DO 02/21/2016, 6:44AM NICAL ACCOUNT MANAGER documented in this encounter Plan of Treatment Not on filedocumented as of this encounter Procedures Procedure Name Priority Date/Time Associated Diagnosis Comme nts HIV CONFIRMATORY Routine 02/20/2016 3:16 Results for this TEST PM TECHNICAL ACCOUNT MANAGER procedure are i n the results section. HIV 1/2 AG/AB 4TH Routine 02/20/2016 3:16 Screening for HIV Re sults for this GEN PM TECHNICAL ACCOUNT MANAGER (human immunodeficiency proc edure are in virus) the results section. HIV 1 QUANTITATIVE Routine 02/20/2016 3:16 Result s for this PCR,VIRAL LOAD PM TECHNICAL ACCOUNT MANAGER procedure are in the results section. documented in this encounter Results (ABNORMAL) HIV 1 Quantitative PCR, Viral Load (02/20/2016 3:16 PM TECHNICAL ACCOUNT MANAGER) Component Value Ref Test Analysis Performed At [facility] Range Method Time Signature HIV Detected NDET [facility] Interpretation (A) LABORATORIES Comment: Test Performed by Real Time PCR This result has been reported to the [facility] Department of Health. HIV Copies per/ml 38,583 Copies/ml [facility] HIV Log Copies/ml 4.59 Log Copies/ml [facility] Specimen Anatomical Collection Method Collection Time Receive d Time (Source) Location / / Volume Laterality 02/20/2016 3:16 PM 7 3:17 TECHNICAL ACCOUNT MANAGER PM TECHNICAL ACCOUNT MANAGER Narrative [facility] - 02/22/2016 2:[address] Performed at [facility], [address] [place] [address] ??[phone] Anabell Fisher DO LAB_1 Performing Organization Address City/State/ZIP Code Phon e Number [facility] [phone] (ABNORMAL) HIV CONFIRMATORY TEST (02/20/2016 3:16 PM TECHNICAL ACCOUNT MANAGER) Component Value Ref Test Analysis Performed At [facility] Range Method Time Signature HIV Type 1 Positive (A) NEG [facility] Interpretation [facility] HIV Type 2 Negative NEG [facility] HIV Confirmatory To aid in therapeutic decision making, [facility] Test Comment HIV-1 Quantitative PCR testing has been ordered. LABORATORIES This result has been reported to the [facility] Department of a lt. Specimen Anatomical Collection Method Collection Time Receive d Time (Source) Location / / Volume Laterality 02/20/2016 3:16 PM 7 3:17 TECHNICAL ACCOUNT MANAGER PM TECHNICAL ACCOUNT MANAGER Narrative [facility] - 02/21/2016 2:[address] Performed at [facility], [address] [place] [address] ??[phone] Anabell Fisher DO LAB_1 Performing Organization Address [facility] Phon e Number [facility] [phone] (ABNORMAL) HIV 1/2 Ag/Ab 4th Generation (02/20/2016 3:16 PM TECHNICAL ACCOUNT MANAGER) Component Value Ref Test Analysis Performed At [facility] [employer] Range Method Time Signature HIV 1/2 AG/AB Presumptive NEGNR [facility] 4thGEN reactive, (A) LABORATORIES Comment: Confirmation to follow. Presumptive evidence of HIV-1 p24 Ag and ?? /or HIV-1/HIV-2 Ab. Supplemental confirm atory testing has been ordered. If this test confirms, this result will be reported to the [facility] Department of [facility]. Specimen Anatomical Collection Method Collection Time Receive d Time (Source) Location / / Volume Laterality 02/20/2016 3:16 PM 7 3:17 TECHNICAL ACCOUNT MANAGER PM TECHNICAL ACCOUNT MANAGER Narrative [facility] - 02/20/2016 8:[address] Performed at [facility], [address] [place] [address] ??[phone] Anabell Fisher DO LAB_1 Performing Organization Address [facility] Phon e Number [facility] [phone] documented in this encounter Visit Diagnoses Diagnosis Screening for HIV (human immunodeficienc y virus) Special screening examination for other specified viral diseases documented in this encounter Care Teams Mystery Shopper Relationship Specialty Start Date End Date Anabell Fisher DO PCP - General Family Practice 02/14/16 11/30/17 [address] [place] [address] documented as of this encounter
--- OUTSIDE RECORDS SUMMARY | 2021-11-06 20:44 | XMS_ITS | Encounter Summary ---
:1975 Author Organization [facility] Address [address] [place] [address] Care Team Providers Name Role Phone Anabell Fisher DO Primary Care Provider Encounter Details Date Type Department Care Team Description 01/31/2016 Orders Only External to Anabell Fisher DO [address] [place] [address] (Wo rk) Social History Tobacco Use Types Packs/Day Years Used Date Smoking Tobacco: Never Alcohol Use Standard Drinks/Week Comments Yes 0 (1 standard drink = 0.6 oz pure alcoho l) occ Alcohol Habits Answer Date Recorded How often do you have a drink containing 4 or more times a w [place] 02/01/2020 alcohol? How many drinks containing alcohol [...] Name Priority Date/Time Associated Diagnosis Comme nts [facility] 01/31/2016 12:00 AM Results for this SLITTER AND CUTTER OPERATOR procedure are i n the results section . documented in this encounter Results [facility] (01/31/2016 12:00 AM SLITTER AND CUTTER OPERATOR) Specimen (Source) Anatomical Location Collection Method / Collectio n Time Received Time / Laterality Volume 01/31/2016 Narrative This result has an attachment that is no t available. Anabell Fisher DO LAB_1 documented in this encounter Visit Diagnoses Not on filedocumented in this encounter Care Teams Drapery Sewer Hand Relationship Specialty Start Date End Date Anabell Fisher DO PCP - General Family Practice 02/14/16 11/30/17 [address] [place] [address] documented as of this encounter
--- OUTSIDE RECORDS SUMMARY | 2021-11-06 20:44 | XMS_ITS | Encounter Summary ---
:1975 Author Organization Replaced by [facility] Address [address] [address] Care Team Providers Name Role Phone CongAnabell figueroa Primary Care Provider Reason for Referral Procedure/Equipment (Routine) - Incomplete Specialty Diagnoses / Procedures Referred By Contact Refer red To Contact Diagnoses Breast pain Cruz Person, Procedures MM Mammogram Diag Bilat W Adelfo MM Mammogram Diag Bilat EILEEN MOHAN [address] [place] [address] Referral ID Status Reason Start Date Expiration Date Visits V isits Requested Authorized [id number] Incomplete 06/25/2016 09/24/2017 1 1 rocedure/Equipment (Routine) - Incomplete Specialty Diagnoses / Procedures Referred By Contact Refer red To Contact Diagnoses Breast pain Cruz Person, Procedures MM US Breast Bilat EILEEN MOHAN [address] [place] [address] Referral ID Status Reason Start Date Expiration Date Visits V isits Requested Authorized [id number] Incomplete 06/25/2016 09/24/2017 1 1 Reason for Visit Reason Comments Breast Pain bilateral (and lumpy feeling ) Encounter Details Date Type Department Care Team Description 06/25/2016 Office Visit [facility] Cruz Person Br east pain (Primary and Gynecology Lexi, COMMODITY BROKER, Dx) Physicians EILEEN [address] [place], [place] [address] Social History Tobacco Use Types [...] Sign Reading Time Taken Comments Blood Pressure 102/60 06/25/2016 8:46 AM CDT Pulse 68 06/25/2016 8:46 AM CDT Temperature - - Respiratory Rate - - Oxygen Saturation - - Inhaled Oxygen Concentration - - Weight 59 kg (130 lb) 06/25/2016 8:46 AM CDT Height 170.8 cm (5' 7.25) 06/25/2016 8:46 AM CDT Body Mass Index 20.21 06/25/2016 8:46 AM CDT documented in this encounter Progress Notes Cruz Person, COMMODITY BROKER, CNM - 06/25/2016 8:56 AM CDT 41 y.o. patient c/o tenderness and lumpy which she notice last week. never had Mammogram. FH for Ca. of the Breast is negative. No past medical history on file. Past Surgical History Procedure Laterality Date ??? Hysterectomy 2012 with BSO (in [place]) ??? Tonsillectomy Current Outpatient Prescriptions Medication Sig Dispense Refill ??? ALBUTEROL IN Inhale 1-2 puffs every 4 hours as needed. 17 PRN ??? cholecalciferol (VITAMIND3) 1000 UNITS capsule Take 1 Cap by mouth daily. ??? qnoudgscaibk-bjjxthblmp-tmfuuluzutpef-tenofovir alafenamide (GENVOYA) [phone] MG tablet Take 1 Tab by mouth daily with breakfast. 30 Tab 11 ??? estradiol (CLIMARA) 0.1 MG/24HR weekly patch Apply 1 Patch to skin once every week. ??? LORATADINE OR ??? Multiple Vitamins-Calcium (ONE-A-DAY WOMENS FORMULA) daily (every 24 hours). No current facility-administered medications for this visit. Review of patient's allergies indicates no known allergies. Negative, No:, Change in appetite, Change in energy, change in weight and fevers, sweats OBJECTIVE: BP 102/60 mmHg Pulse 68 Ht 5' 7.25 (1.708 m) Wt 130 lb (58.968 kg) BMI 20.21 kg/m2 Breasts: examined in upright and supine position, nipples normal without inversion, lesions or discharge, no skin dimpling or peau d'orange. ASSESSMENT: bilateral Breast pain and R upper breast feels dense to palpation. PLAN: Mammogram with Diagnostic ultrasound. Cruz Elliott CNM documented in this encounter Plan of Treatment Scheduled Orders Name Type Priority Associated Diagnoses Order S chedule MM US Breast Bilat Imaging New Routine Breast pain Expected: 06/25/2016 (Approximate), Expires: 06/25/2017 documented as of this encounter Results MM Mammogram Diag Bilat [...] should resume annual screening mammography. Cruz Person APRN, [facility]AN[facility] LIONEL documented in this encounter Visit Diagnoses Diagnosis Breast pain - Primary Mastodynia Breast pain Mastodynia documented in this encounter Care Teams Binder Chainstitch Relationship Specialty Start Date End Date Anabell Fisher DO PCP - General Family Practice 02/14/16 11/30/17 [address] [place] [address] documented as of this encounter
--- OUTSIDE RECORDS SUMMARY | 2021-11-06 20:44 | XMS_ITS | Encounter Summary ---
:1975 Author Organization [facility] Address [address] [place] [place] [address] Care Team Providers Name Role Phone Anabell Fisher DO Primary Care Provider Reason for Referral Consult/Transfer Care (Routine) - Closed Specialty Diagnoses / Procedures Referred By Contact Refer red To Contact Diagnoses Screening for HIV (human immunodeficiency virus) Anabell Fisher DO [address] [place], [place] [address] Referral ID Status Reason Start Date Expiration Date Visits Requ ested Visits Authorized [id number] Closed 02/20/2016 05/21/2017 1 1 Scheduling Instructions Your provider has recommended an appoint ment with [facility]. You may call [phone] to schedule yo ur appointment. If you prefer, a hot dip plating supervisor will contact you within the next 3 busin ess days to assist you in setting up this appointment. We suggest you call your [employer] insurance company about your coverage and benefits for this appointment. K HOLDER Reason for Visit Reason Comments LAB RESULTS Encounter Details Date Type Department Care Team Description 02/20/2016 Office Visit [facility] Anabell Fisher Screen ing for HIV (human Alisha Dan DO immunodeficiency virus) [address] (Primary Dx) [place], [place] [address] [place], [place] [phone] [id number] Social History Tobacco Use Types Packs/Day Years [...] Sign Reading Time Taken Comments Blood Pressure 132/84 02/20/2016 2:14 PM STOCK HOLDER Pulse 74 02/20/2016 2:14 PM STOCK HOLDER Temperature 36.4 ??C (97.6 ??F) 02/20/2016 2:14 PM STOCK HOLDER Respiratory Rate - - Oxygen Saturation - - Inhaled Oxygen Concentration - - Weight 59.9 kg (132 lb) 02/20/2016 2:14 PM STOCK HOLDER Height - - Body Mass Index 20.67 03/28/2015 3:48 PM STOCK HOLDER documented in this encounter Patient Instructions Patient InstructionsNatalia Anabell Dan, DO - 02/20/2016 2:47 PM CST HIV Testing: Care Instructions Your Care Instructions You can get tested for the human immunodeficiency virus (HIV). This test checks for HIV antibodies in your blood. If antibodies are found, the test is positive. If HIV antibodies are not found, you may need a repeat test to be sure the results are correct. If arepeat test at 6 months is negative, there is no infection. In some cases, HIV antibodies do not appear right after exposure. They may not be found for up to 6 months. During this time, an infected person can still spread the virus. After your test, be sure to tell your doctor how and where to contact you. If you don't hear from your doctor in 1 to 2 weeks after your test, call and ask for your results. Follow-up care is a lee part of your treatment and safety. Be sure to make and go to all appointments, and call your doctor if you are having problems. It's also a good idea to know your test results and keep a list of the medicines you take. What do the results mean? You doctor may ask you to come back to talk about your results. This may happen no matter what your results say. It does not always mean that you have HIV. Normal result ?? A normal result means that no HIV antibodies were found in your blood. Normal results are called negative. ?? You may need a repeat test to be sure the results are correct. If a repeat test at 6 months is negative, there is no infection. Indeterminate result ?? If the results aren't clear, it is called an indeterminate result. This may happen before HIV antibodies develop. Or it may happen when some other type of antibody interferes with the results. If this occurs, you will probably have another test right away. Abnormal result ?? An abnormal result means that you have HIV antibodies in your blood. These results are called positive. ?? A positive test is repeated on the same blood sample. If two or more results are positive, they must be confirmed by another type of test. This is because some tests can cause false-positive results. No one is considered HIV-positive until he or she has a positive Western blot, IFA, or PCR test. These tests are used to confirm other test results. ?? If your test result is positive, you will get counseling on how to handle the results and what todo next. ?? If you have a positive test result, contact your sex partners to tell them. They should be tested. You may be able to get help from your local Health Department in contacting your sex partners. In many places, a Health Department employee will contact you to offer this help. Where can you learn more? 1. Go to [employer] or [facility]. 2. Enter T792 in the search box. Current as of: June 30, 2014 Content Version: 109 ?? [id number] [employer]. K HOLDER documented in this encounter Progress Notes Anabell Fisher DO - 02/21/2016 9:42 AM CST SUBJECTIVE Cristiana Castillo is a 41 y.o. old female who presents with: Chief Complaint Patient presents with ??? LAB RESULTS Was told she was declined life insurance Results are enroute by [employer] but have not yet been received at the clinic Provider called Rosales araujo and was told the concern was a positive screening and confirmatory HIV test Is sexually active with her and for 9 years Lori denies risk factors such as multiple sexual partners, IV drug use, and does not work in a health care setting and this news was unexpected and difficult for her to hear No prior HIV testing; JERMAINE completed for [facility] records where she has received care many years ago Denies symptoms of illness Review of systems: without rash or fever I have reviewed the medical, surgical, family and social histories. I have reviewed the current medication list and updated the patient record as necessary OBJECTIVE BP 132/84 mmHg Pulse 74 Temp(Src) 97.6 ??F (36.4 ??C) (Oral) Wt 132 lb (59.875 kg) General appearance: alert, in no distress Neck: supple Respirations: unlabored Heart: regular Extremities: moving equally ASSESSMENT/PLAN Diagnoses and all orders for this visit: Screening for HIV (human immunodeficiency virus) - HIV 1/2 Ag/Ab 4th Generation - Urgent Infectious Disease Consult-Adults Long discussion regarding testing and confirmation process, sexual partner should seek testing, and plan for continuity of care Called ID specialist registration representative to arrange follow up and recommendation for social services aide appointment at their clinic as well Appreciate RN assistance with scheduling Please see the patient instructions for additional counseling and precautions given Follow-up sooner as needed for support, questions, or concerns AVS reviewed together and questions answered Anabell Fisher DO 02/21/2016 Duration of visit: 25 minutes were spent face to face with the patient of which > 50% was relatedto counseling and coordination of care of above condition K HOLDER documented in this encounter Plan of Treatment Scheduled Referrals Name Type Priority Associated Diagnoses Order S [facility] Infectious Disease Referral Routine Screening for HIV (hum an Ordered: 02/20/2016 Consult-Adults immunodeficiency virus) documented as of this encounter Results (ABNORMAL) HIV 1/2 Ag/Ab 4th Generation (02/20/2016 3:16 PM STOCK HOLDER) Component Value Ref Test Analysis Performed At [facility] Range Method Time Signature HIV 1/2 AG/AB Presumptive NEGNR [facility] 4thGEN reactive, (A) LABORATORIES Comment: Confirmation to follow. Presumptive evidence of HIV-1 p24 Ag and ?? /or HIV-1/HIV-2 Ab. Supplemental confirm atory testing has been ordered. If this test confirms, this result will be reported to the [facility] Department of Health. Specimen Anatomical Collection Method Collection Time Receive d Time (Source) Location / / Volume Laterality 02/20/2016 3:16 PM 7 3:17 STOCK HOLDER PM STOCK HOLDER Narrative [facility] - 02/20/2016 8:[address] Performed at [facility], [address] [place] [address] ??[phone] Anabell Fisher DO LAB_1 Performing Organization Address City/State/ZIP Code Phon e Number [facility] [phone] documented in this encounter Visit Diagnoses Diagnosis Screening for HIV (human immunodeficienc y virus) - Primary Special screening examination for other specified viral diseases Screening for HIV (human immunodeficienc y virus) Special screening examination for other specified viral diseases documented in this encounter Care Teams Quality Assurance Lead Relationship Specialty Start Date End Date Anabell Fisher DO PCP - General Family Practice 02/14/16 11/30/17 [address] [place] [address] documented as of this encounter
--- OUTSIDE RECORDS SUMMARY | 2021-11-06 20:44 | XMS_ITS | Encounter Summary ---
:1975 Author Organization [facility] Address [address], [place] [address] Care Team Providers Name Role Phone No Primary/Referring, Phy Primary Care Provider Unavailable Encounter Details Date Type Department Care Team Description 01/10/2016 Telephone [facility] and Monica Lorenzo, Gynecology [address] [place], [place] [address] [place] [address] [phone] (Wo rk) Social History Tobacco Use Types Packs/Day Years Used Date Smoking Tobacco: Never Alcohol Use Standard Drinks/Week Comments Yes 0 (1 standard drink = 0.6 oz pure alcoho l) occ Alcohol Habits Answer Date Recorded How often do you have a drink containing 4 or more times a w [place] 02/01/2020 alcohol? How many drinks containing alcohol do you have Not asked on a typical day when you are drinking? How often do you have six or more drinks on one Not asked occasion? Comment: occ 07/20/2015 Sex Assigned at Date Recorded Not on file documented as of this encounter Nursing Notes Melly Tam RN - 01/10/2016 3:44 PM CST Pt was given a new Rx today by DR Sharp. Melly Tam RN ERCIAL ASSISTANT Melly Tam RN - 01/10/2016 3:37 PM CST Pt was given 4 months of OCPs in 08/21/15, so needs more. ERCIAL ASSISTANT documented in this encounter Plan of Treatment Not on filedocumented as of this encounter Visit Diagnoses Not on filedocumented in this encounter Care Teams Datacap Developer Relationship Specialty Start Date End Date No Primary/Referring, Phy PCP - General 03/07/15 documented as of this encounter
--- OUTSIDE RECORDS SUMMARY | 2021-11-06 20:44 | XMS_ITS | Encounter Summary ---
:1975 Author Organization [facility] Address [address] [place] [address] Care Team Providers Name Role Phone CongAnabell figueroa DO Primary Care Provider Encounter Details Date Type Department Care Team Description 04/15/2016 Lab Visit Specialty [facility] human Laboratory immunodeficiency virus (HIV) [address] infection status ([facility]) [place] [address] Social History Tobacco Use Types Packs/Day Years Used Date Smoking Tobacco: Never Smokeless Tobacco: Never Alcohol Use Standard Drinks/Week Comments Yes 7 (1 standard drink = 0.6 oz pure alcoho l) Alcohol Habits Answer Date Recorded How often do you have a drink containing 4 or more times a w [place] 02/01/2020 alcohol? How many drinks containing alcohol [...] Priority Date/Time Associated Diagnosis Comme nts HIV 1 QUANTITATIVE Routine 04/15/2016 9:35 Asymptomatic human Results for this PCR,VIRAL LOAD AM TELEPRINTER immunodeficiency virus pro cedure are in (HIV) infection status the r esults ([facility]) section. CREATININE / GFR Routine 04/15/2016 9:35 Asymptomatic human Re sults for this AM TELEPRINTER immunodeficiency virus proce dure are in (HIV) infection status the r esults ([facility]) section. COMPLETE BLOOD Routine 04/15/2016 9:35 Asymptomatic human Resu lts for this COUNT-W/DIFF AM TELEPRINTER immunodeficiency virus proce dure are in (HIV) infection status the r esults ([facility]) section. T CELL RATIO Routine 04/15/2016 9:35 Asymptomatic human Result s for this AM TELEPRINTER immunodeficiency virus proce dure are in (HIV) infection status the r esults ([facility]) section. ALT (SGPT) Routine 04/15/2016 9:35 Asymptomatic human Result s for this AM TELEPRINTER immunodeficiency virus proce dure are in (HIV) infection status the r esults ([facility]) section. AST Routine 04/15/2016 9:35 Asymptomatic human Result s for this AM TELEPRINTER immunodeficiency virus proce dure are in (HIV) infection status the r esults ([facility]) section. documented in this encounter Results (ABNORMAL) Complete Blood Count-W/Diff (04/15/2016 9:35 AM TELEPRINTER) [facility] Method Time Signature WBC 3.7 (L) [...] [facility] Lymph 31 % [facility] [place] 8 % [facility] Eos 20 % [facility] Baso 1 % [facility] Neutrophil 1.5 (L) 1.8 - 7.7 [facility] Absolute k/ul [facility] Lymph Absolute 1.2 1.0 - 4.8 [facility] k/ul [facility] [place] Absolute 0.3 0.1 - 0.7 [facility] k/ul [facility] Eos Absolute 0.7 (H) 0.0 - 0.5 [facility] k/ul [facility] Baso Absolute 0.0 0.0 - 0.2 [facility] k[facility]ul [facility] Immature Gran 0 % [facility] Imm Gran 0.0 0 k/ul [facility] Specimen Anatomical Collection Method Collection Time Receive d Time (Source) Location / / Volume Laterality 04/15/2016 9:35 AM 7 9:41 TELEPRINTER AM TELEPRINTER Narrative [facility] - 04/15/2016 1:[address] Performed at [facility], [address] [place] [address] ??[id number] Mike Hicks MD LAB_1 Performing Organization Address [facility] Code Phon e Number [facility] [phone] AST (04/15/2016 9:35 AM TELEPRINTER) P athologist Signature AST (SGOT) 18 10 - 40 U/L [facility] Specimen Anatomical Collection Method Collection Time Receive d Time (Source) Location / / Volume Laterality 04/15/2016 9:35 AM 7 9:41 TELEPRINTER AM TELEPRINTER Narrative [facility] - 04/15/2016 12:51 PM TELEPRINTER Performed at [facility], [address] [place] [address] ??[phone] Mike Hicks MD LAB_1 Performing Organization Address [facility] Phon e Number [facility] [phone] ALT (SGPT) (04/15/2016 9:35 AM TELEPRINTER) P athologist Signature ALT (SGPT) 14 0 - 55 U/L [facility] Specimen Anatomical Collection Method Collection Time Receive d Time (Source) Location / / Volume Laterality 04/15/2016 9:35 AM 7 9:41 TELEPRINTER AM TELEPRINTER Narrative [facility] - 04/15/2016 12:51 PM TELEPRINTER Performed at [facility], [address] [place] [address] ??[phone] Mike Hicks MD LAB_1 Performing Organization Address City/[facility]/ZIP Code Phon e Number [facility] [phone] Creatinine / GFR (04/15/2016 9:35 AM TELEPRINTER) Analysis Performed At Patho logist Time Signature Creatinine 0.71 0.55 - [facility] 1.02 mg/dl [facility] GFR, Estimated >60 >60 [facility] ml/min/1.7 [facility] 3m2 GFR, Est., If >60 >60 [facility] Black ml/min/1.7 [facility] 3m2 Specimen Anatomical Collection Method Collection Time Receive d Time (Source) Location / / Volume Laterality 04/15/2016 9:35 AM 7 9:41 TELEPRINTER AM TELEPRINTER Narrative [facility] - 04/15/2016 12:51 PM TELEPRINTER Performed at [facility], [address] [place] [address] ??[phone] Mike Hicks MD LAB_1 Performing Organization Address [facility] Phon e Number [facility] [phone] (ABNORMAL) T Cell Ratio (04/15/2016 9:35 AM TELEPRINTER) Analysis Performed At Patho logist Time Signature [...] Volume Laterality 04/15/2016 9:35 AM 7 9:41 TELEPRINTER AM TELEPRINTER Narrative [facility] - 04/15/2016 2:[address] Performed at [facility] , [address] [place] [id number] Mike Hicks MD LAB_1 Performing Organization Address City/[facility] Phon e Number [facility] [phone] HIV 1 Quantitative PCR, Viral Load (04/15/2016 9:35 AM TELEPRINTER) Component Value Ref Test Analysis Performed At Patholo gist Range Method Time Signature HIV Not NDET [facility] Interpretation Detected [facility] Comment: Test Performed by Real Time PCR This result has been reported to the [facility] Department of Health. HIV Copies per/ml <40 Copies/ml [facility] HIV Log Copies/ml <1.60 Log Copies/ml [facility] Specimen Anatomical Collection Method Collection Time Receive d Time (Source) Location / / Volume Laterality 04/15/2016 9:35 AM 7 9:41 TELEPRINTER AM TELEPRINTER Narrative [facility] - 04/16/2016 4:[address] Performed at [facility], [address] ??[phone] Mike Hicks MD LAB_1 Performing Organization Address City/State/ZIP Code Phon e Number [facility] [phone] documented in this encounter Visit Diagnoses Diagnosis Asymptomatic human immunodeficiency viru s (HIV) infection status ([facility]) Asymptomatic human immunodeficiency viru s (HIV) infection status documented in this encounter Care Teams Catholic Priest Relationship Specialty Start Date End Date Anabell Fisher DO PCP - General Family Practice 02/14/16 11/30/17 [address] [place] [address] documented as of this encounter
--- OUTSIDE RECORDS SUMMARY | 2021-11-06 20:44 | XMS_ITS | Encounter Summary ---
:1975 Author Organization [facility] Address [address] [place] [address] Care Team Providers Name Role Phone Anabell Fisher DO Primary Care Provider Reason for Visit Reason Comments LAB RESULTS Encounter Details Date Type Department Care Team Description 02/21/2016 Telephone Surveyor Family P kelsey Anabell Fisher, DO LAB RESULTS; [address] [place], [place] [address] [place] [address] [phone] (Wo rk) Social History Tobacco Use Types Packs/Day Years Used Date Smoking Tobacco: Never Smokeless Tobacco: Never Alcohol Use Standard Drinks/Week Comments Yes 0 (1 standard drink = 0.6 oz pure alcoho l) occ Alcohol Habits Answer Date Recorded How often do you have a drink containing 4 or more times a w [place] 02/01/2020 alcohol? How many drinks containing alcohol do you have Not asked on a typical day when you are drinking? How often do you have six or more drinks on one Not asked occasion? Comment: occ 07/20/2015 Sex Assigned at Date Recorded Not on file documented as of this encounter Nursing Notes Princess Bahena RN - 02/21/2016 3:58 PM CST Pt informed of results per PCP Pt to keep scheduled appt with ID 02/29/16 (please see ID telephone encounter for details) Princess Knott RN 02/21/2016, 3:59 PM EST WORKER FIELD CROP Princess Bahena RN - 02/21/2016 3:33 PM CST ----- Message from Ilir Cisneros CMA sent at 02/21/2016 3:14 PM HARVEST WORKER FIELD CROP ----- Please discuss w/ pt ----- Message ----- From: Barbra In Lab Sent: 02/20/2016 8:59 PM To: Natalia Hung Care Team EST WORKER FIELD CROP Diann Vale - 02/21/2016 2:57 PM CST What test are you calling about: Lab Who ordered it: Natalia Where was the test done: [facility] When did you have it done: 02/20/16 Pt calling would like results for HIV test and pt would like to know if she is HIV positive or not. Please Advise If a prescription is needed, would you like it filled at our clinic pharmacy? [Psychologist Chief/Appt Center: Was the pharmacy entered into the Preferred Pharmacy field? No] Is it okay to leave detailed message on your voicemail? Yes [Psychologist Chief/Appt Center: If this call is after 3 p.m., communicate to patient: If we are not able to get back to you by the end of the day and your symptoms worsen please contact the Careline at [phone] OR at .] [Psychologist Chief: Inform patient that if they are active with online patient services they can receive their results online (only available for 12 years and younger and 18 years and older)] Is there anything else I can help you with today? NO Diann Isabel 02/21/2016, 2:57 PM EST WORKER FIELD CROP documented in this encounter Plan of Treatment Not on filedocumented as of this encounter Visit Diagnoses Not on filedocumented in this encounter Care Teams Reading Efficiency Course Director Relationship Specialty Start Date End Date Anabell Fisher DO PCP - General Family Practice 02/14/16 11/30/17 [address] [place] [address] documented as of this encounter
--- OUTSIDE RECORDS SUMMARY | 2021-11-06 20:44 | XMS_ITS | Encounter Summary ---
:1975 Author Organization [facility] Address [address] [place] [address] Care Team Providers Name Role Phone No Primary/Referring, Phy Primary Care Provider Unavailable Reason for Visit Reason Onset Date Comments Refill 01/08/2016 Encounter Details Date Type Department Care Team Description 01/08/2016 Refill [facility] and Josuha Lorenzo MD Refill Gynecology [id number] [place] [address] [phone] Social History Tobacco Use Types Packs/Day Years Used Date Smoking Tobacco: Never Alcohol Use Standard Drinks/Week Comments Yes 0 (1 standard drink = 0.6 oz pure alcoho l) occ Alcohol Habits Answer Date Recorded How often do you have a drink containing 4 or more times a w [place] 02/01/2020 alcohol? How many drinks containing alcohol do you have Not asked on a typical day when you are drinking? How often do you have six or more drinks on one Not asked occasion? Comment: occ 07/20/2015 Sex Assigned at Date Recorded Not on file documented as of this encounter Nursing Notes Taco Gloria - 01/10/2016 10:55 AM CST Another request came in from [facility] pharmacy for medication listed above. Inform pharmacy that patient already received a refill extension on 08/21/15. ING SHED WORKER Mary Rosales RN - 01/08/2016 1:53 PM CST Will send to provider to review and advise. RN cannot refill this prescription, because patient already received a refill extension on 08/21/15. BP Readings from Last 1 Encounters: 09/06/15 118/85 Date of last pap: 07/20/15 ??? Pap Test, Routine Last qualifying visit: 09/06/15 in FP; 03/28/15 in REFERENCE INVESTIGATOR Allergies reviewed? No Mary Rosales RN 01/08/2016, 1:55 PM ING SHED WORKER documented in this encounter Plan of Treatment Not on filedocumented as of this encounter Visit Diagnoses Not on filedocumented in this encounter Care Teams Stapler Machine Relationship Specialty Start Date End Date No Primary/Referring, Radha PCP - General 03/07/15 documented as of this encounter
--- OUTSIDE RECORDS SUMMARY | 2021-11-06 20:44 | XMS_ITS | Encounter Summary ---
:1975 Author Organization [facility] Address [address] [place] [address] Care Team Providers Name Role Phone No Primary/Referring, Phy Primary Care Provider Unavailable Reason for Visit Reason Comments Follow-up Encounter Details Date Type Department Care Team Description 12/04/2015 Telephone [place] [facility] juwan Kay, Saray Palmer, Follow-up [address] [place], [place] [address] [address] [phone] [place] [address] (Wo rk) Social History Tobacco Use Types Packs/Day Years Used Date Smoking Tobacco: Never Alcohol Use Standard Drinks/Week Comments Yes 0 (1 standard drink = 0.6 oz pure alcoho l) occ Alcohol Habits Answer Date Recorded How often do you have a drink containing 4 or more times a w [place] 02/01/2020 alcohol? How many drinks containing alcohol do you have Not asked on a typical day when you are drinking? How often do you have six or more drinks on one Not asked occasion? Comment: occ 07/20/2015 Sex Assigned at Date Recorded Not on file documented as of this encounter Nursing Notes Sho Sullivan LPN - 12/04/2015 8:22 AM CDT Left message for patient. Per Dr. Kay informing patient to follow up in one year due to family his of melanoma. documented in this encounter Plan of Treatment Not on filedocumented as of this encounter Visit Diagnoses Not on filedocumented in this encounter Care Teams Family Consumer Science Fcs Teacher Relationship Specialty Start Date End Date No Primary/Referring, Phy PCP - General 03/07/15 documented as of this encounter
--- OUTSIDE RECORDS SUMMARY | 2021-11-06 20:44 | XMS_ITS | Encounter Summary ---
:1975 Author Organization [facility] Address [address] [place] [address] Care Team Providers Name Role Phone No Primary/Referring, Phy Primary Care Provider Unavailable Reason for Visit Reason Onset Date Comments ERRONEOUS ENTRY 07/20/2015 Encounter Details Date Type Department Care Team Description 07/20/2015 Notes/Orders [facility] Anabell Fisher, ERR ONEOUS ENTRY Practice DO (Primary Dx) [address] [place], [place] [address] S [phone] [place] [address] Social History Tobacco Use Types Packs/Day Years [...] as of this encounter Progress Notes Anabell Fisher MD - 07/20/2015 5:46 PM CDT This encounter is an erroneous entry. Please disregard. documented in this encounter Plan of Treatment Not on filedocumented as of this encounter Visit Diagnoses Diagnosis ERRONEOUS ENTRY - Primary documented in this encounter Care Teams Sebd Teacher Relationship Specialty Start Date End Date No Primary/Referring, Phy PCP - General 03/07/15 documented as of this encounter
--- OUTSIDE RECORDS SUMMARY | 2021-11-06 20:44 | XMS_ITS | Encounter Summary ---
:1975 Author Organization [facility] Address [address] [place] [address] Care Team Providers Name Role Phone No Primary/Referring, Phy Primary Care Provider Unavailable Reason for Referral Consult/Transfer Care (Routine) - Closed Specialty Diagnoses / Procedures Referred By Contact Refer red To Contact Diagnoses Dermatitis Pigmented skin lesion Anabell Fisher, DO [address] [place], [place] [address] Referral ID Status Reason Start Date Expiration Date Visits Requ ested Visits Authorized [id number] Closed 09/06/2015 12/05/2016 1 1 Scheduling Instructions Your provider has [facility] ment [facility] You may call [phone] to schedule your appoi ntment. If you prefer, a manufacturing scheduler will contact you within the next 3 business d ays to assist you in setting up this appointment. We sugge st you call your health insurance company about your coverage and benefits for thi s appointment. Reason for Visit Reason Comments MOLE Right side of face near hair line SKIN DISCOLORATION Chest area. redness (like elizalde n burn). had this for years Immunizations Needed possible tetanus Encounter Details Date Type Department Care Team Description 09/06/[address] [facility] Anabell Fisher Pig mented skin lesion (Primary Dx); Practice DO Dermatitis; [address] Encounter for immunization [place], [place] [address] [address] [phone] [place] [address] Social History Tobacco Use Types Packs/Day Years Used Date Smoking Tobacco: Never Alcohol Use Standard Drinks/Week Comments Yes 0 (1 standard drink = 0.6 oz pure alcoho l) [facility] Alcohol Habits Answer Date Recorded How often [...] Sign Reading Time Taken Comments Blood Pressure 118/85 09/06/2015 3:26 PM CDT Pulse 61 09/06/2015 3:26 PM CDT Temperature - - Respiratory Rate - - Oxygen Saturation - - Inhaled Oxygen Concentration - - Weight 56.2 kg (124 lb) 09/06/2015 3:26 PM CDT Height - - Body Mass Index 19.42 03/28/2015 3:48 PM BALE COVERER documented in this encounter Patient Instructions Patient InstructionsAnabell Fisher MD - 09/06/2015 3:55 PM CDT Images from the original note were not included. Dermatitis: Care Instructions Your Care Instructions Dermatitis is the general name used for any rash or inflammation of the skin. Different kinds of dermatitis cause different kinds of rashes. Common causes of a rash include new medicines, plants (such as poison oak or poison jn), heat, stress, and allergies to soaps, cosmetics, detergents, chemicals,and fabrics. Certain illnesses can also cause a rash. Unless caused by an infection, these rashes cannot be spread from person to person. How long your rash will last depends on what caused it. Rashes may last a few days or months. Follow-up care is a lee part of your treatment and safety. Be sure to make and go to all appointments, and call your doctor if you are having problems. It's also a good idea to know your test results and keep a list of the medicines you take. How can you care for yourself at home? ?? Do not scratch. Cut your nails short, and file them smooth. Or you may wear gloves if this helps keep you from scratching. ?? Wash the area with water only. Pat dry. ?? Put cold, wet cloths on the rash to reduce itching. ?? Keep cool, and stay out of the sun. ?? Leave the rash open to the air as much as possible. ?? If the rash itches, use hydrocortisone cream. Follow the directions on the label. Calamine lotionmay help for plant rashes. ?? Try an [id number] antihistamine such as diphenhydramine (Benadryl) or chlorpheniramine (Chlor-Trimeton). Follow the directions on the label. ?? If your doctor prescribed a cream, use it as directed. If your doctor prescribed medicine, take it exactly as directed. When should you call for help? Call your doctor now or seek immediate medical care if: ?? You have signs of infection, such as: ?? Increased pain, swelling, warmth, or redness. ?? Red streaks leading from the area. ?? Pus draining from the area. ?? A fever. ?? You have joint pain along with the rash. Watch closely for changes in your health, and be sure to contact your doctor if: ?? Your rash is changing or getting worse. ?? You are not getting better as expected. Where can you learn more? Go to [employer] and enter F270 in the search box. Current as of: March 31, 2014 Content Version: 108 ?? [id number] [employer]. documented in this encounter Progress Notes Anabell Fisher DO - 09/06/2015 4:19 PM CDT SUBJECTIVE Cristiana Castillo is a 40 y.o. old female who presents with: Chief Complaint Patient presents with ??? MOLE Right side of face near hair line ??? SKIN DISCOLORATION Chest area. redness (like sun burn). had this for years ??? Immunizations Needed possible tetanus Review of systems: without chest pain or shortness of breath Past medical history ??? S/P hysterectomy ??? Pap test history OBJECTIVE BP 118/85 mmHg Pulse 61 Wt 124 lb (56.246 kg) Skin: generalized area of redness anterior chest; right facial pigmented skin lesion with regular border ASSESSMENT/PLAN Diagnoses and all orders for this visit: Pigmented skin lesion; Dermatitis - Dermatology Consult-Adult/Peds Over the counter hydrocortisone and emollient creams Discussed side effects of medication Please see the patient instructions for additional counseling and precautions given Follow-up if persistent or worsening symptoms AVS reviewed together and questions answered Encounter for immunization - Tdap (7+ yrs) One dose only unless . Discussed risks, benefits and side effects of immunizations given today Anabell Fisher DO 09/06/2015 documented in this encounter Plan of Treatment Scheduled Referrals Name Type Priority Associated Diagnoses Order [facility] Dermatology Referral Routine Dermatitis Ordered: 09/06/2015 Consult-Adult/Peds Pigmented skin lesion documented as of this encounter Visit Diagnoses Diagnosis Pigmented skin lesion - Primary Dyschromia, unspecified Dermatitis Contact dermatitis and other eczema, due to unspecified cause Encounter for immunization Need for other specified prophylactic va ccination against single bacterial disease documented in this encounter Care Teams Packing Machine Operator Relationship Specialty Start Date End Date No Primary/Referring, Phy PCP - General 03/07/15 documented as of this encounter
--- OUTSIDE RECORDS SUMMARY | 2021-11-06 20:44 | XMS_ITS | Encounter Summary ---
:1975 Author Organization [facility] Address [address] [place] [address] Care Team Providers Name Role Phone Anabell Fisher DO Primary Care Provider Reason for Visit Reason Comments Care Coordination new patient meeting Insurance Concerns Encounter Details Date Type Department Care Team Description 02/29/2016 Social Work [facility] 401 Nancy Alegria LSW Infectious Disease [address] [place] [address] [place] [address] [phone] Social History Tobacco Use Types Packs/Day Years Used Date Smoking Tobacco: Never Smokeless Tobacco: Never Alcohol Use Standard Drinks/Week Comments Yes 7 (1 standard drink = 0.6 oz pure alcoho l) Alcohol Habits Answer Date Recorded How often do you have a drink containing 4 or more times a w [place] 02/01/2020 alcohol? How many drinks containing alcohol do you have Not asked on a typical day when you are drinking? How often do you have six or more drinks on one Not asked occasion? Comment: Not asked Sex Assigned at Date Recorded Not on file documented as of this encounter Progress Notes Nancy Alegria LSW - 02/29/2016 9:59 AM CST This Disaster Director met face to face with the patient in the clinic. This Disaster Director also consulted with ID Provider Dr Hicks. Patient was recently diagnosed by trying to get life insurance through work. 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 Patient states that she is only concerned with her co-pay for HIV medications once she starts in a couple weeks. This Disaster Director discussed Program HH if she is income eligible and/or co-pay cards. Patient discussed income and is pretty sure she is over income for [facility]. This Disaster Director told the patient that when she starts medications in a few weeks, to let social work manager know if her co-pay is high and we will look at co-pay cards or other options, patient understands. This Disaster Director went over new HIV patient packet with the patient and patient took packet home with her. Patient will call if she has any questions or wants to see social work manager again to discuss theinformation that was provided to her. This Disaster Director and patient also discussed jesse white services and the anita that is available to her if eligible. Patient states that she knows she is over income and doesn't need it right now but understands that the anita is available to her. This Disaster Director explained some of the services that a complex case manager can provide for the patient including but not limited to: medical transportation; help with insurance renewals; financial assistance programs; referrals to mental health; support groups; protection; food shelf programs; and other resources as needed. Patient does not want to enroll in the case management program as she doesn't feel she needs it. Patient will keep social work manager updated if she needs any future services or information. No further follow up needed at this time. Billable Units: 4 Plan: This Disaster Director will continue to monitor the clients needs and follow up as necessary. ДМИТРИЙ Gutierres 02/29/2016, 10:21 AM STMAS TREE GRADER documented in this encounter Plan of Treatment Not on filedocumented as of this encounter Visit Diagnoses Not on filedocumented in this encounter Care Teams Lining Maker Hand Relationship Specialty Start Date End Date Anabell Fisher DO PCP - General Family Practice 02/14/16 11/30/17 [address] [place] [address] documented as of this encounter
--- OUTSIDE RECORDS SUMMARY | 2021-11-06 20:44 | XMS_ITS | Encounter Summary ---
:1975 Author Organization [facility] Address [address] [address] Care Team Providers Name Role Phone Anabell Fisher DO Primary Care Provider Encounter Details Date Type Department Care Team Description 06/23/2016 Lab Visit Specialty [facility] human Laboratory immunodeficiency virus (HIV) [address] infection status (HRC) [place] [address] Social History Tobacco Use Types Packs/Day Years Used Date Smoking Tobacco: Never Smokeless Tobacco: Never Alcohol Use Standard Drinks/Week Comments Yes 7 (1 standard drink = 0.6 oz pure alcoho l) Alcohol Habits Answer Date Recorded How often do you have a drink containing 4 or more times a w [place] 02/01/2020 alcohol? How many drinks containing alcohol do you have Not asked on a typical day when you are drinking? How often do you have six or more drinks on one Not asked occasion? Comment: Not asked Sex Assigned at Date Recorded Not on file documented as of this encounter Progress Notes Vicky Son RN - 06/26/2016 8:52 AM CDT Quick Note: [employer] messages sent. documented in this encounter Plan of Treatment Not on filedocumented as of this encounter Procedures Procedure Name Priority Date/Time Associated Diagnosis Comme nts HIV 1 QUANTITATIVE Routine 06/23/2016 10:18 Asymptomatic human Results for this PCR,VIRAL LOAD AM CDT immunodeficiency virus pro cedure are in (HIV) infection status the r [place] (HRC) section. COMPLETE BLOOD Routine 06/23/2016 10:18 Asymptomatic human Res ults for this COUNT-W/DIFF AM CDT immunodeficiency virus proce dure are in (HIV) infection status the r esults (C) section. T CELL RATIO Routine 06/23/2016 10:18 Asymptomatic human Resul ts for this AM CDT immunodeficiency virus proce dure are in (HIV) infection status the r esults (HRC) section. documented in this encounter Results (ABNORMAL) Complete Blood Count-W/Diff (06/23/2016 10:18 AM CDT) [facility] Method Time Signature WBC 3.9 (L) [...] [facility] Lymph 30 % [facility] [place] 8 % [facility] Eos 6 % [facility] Baso 1 % [facility] Neutrophil 2.2 1.8 - 7.7 [facility] Absolute k/ul [facility] Lymph Absolute 1.2 1.0 - 4.8 [facility] k/ul [facility] [place] Absolute 0.3 0.1 - 0.7 [facility] k/ul [...] 06/23/2016 1:29 PM C DT Performed at [facility], [address] [place] [address] ??[id number] Mike Hicks MD LAB_1 Performing Organization Address City/State/ZIP Code Phon e Number [facility] [phone] (ABNORMAL) T Cell Ratio (06/23/2016 10:18 AM [...] 06/23/2016 1:43 PM C DT Performed at [facility] , [address] [place] [address] Mike Hicks MD LAB_1 Performing Organization Address City/[facility] Code Phon e Number [facility] [phone] HIV 1 Quantitative PCR, Viral Load (06/23/2016 10:18 AM CDT) Component Value Ref Test Analysis Performed At [facility] gist Range Method Time Signature HIV Not NDET [facility] Interpretation Detected [facility] Comment: Test Performed by Real Time PCR This result has been reported to the [facility] Department of Health. HIV Copies per/ml <40 Copies/ml [facility] HIV Log Copies/ml <1.60 Log Copies/ml [facility] Specimen Anatomical Collection Method Collection Time Receive d Time (Source) Location / / Volume Laterality 06/23/2016 10:18 06/23/2016 AM CDT 10:20 AM CDT Narrative [facility] - 06/25/2016 4:19 PM C DT Performed at [facility], [address] [place] [address] ??[phone] Mike Hicks MD LAB_1 Performing Organization Address City/[facility]/ZIP Code Phon e Number [facility] [phone] documented in this encounter Visit Diagnoses Diagnosis Asymptomatic human immunodeficiency viru s (HIV) infection status (HRC) Asymptomatic human immunodeficiency viru s (HIV) infection status documented in this encounter Care Teams Preschool Assistant Teacher Relationship Specialty Start Date End Date Anabell Fisher DO PCP - General Family Practice 02/14/16 11/30/17 [address] [place] [address] documented as of this encounter
--- OUTSIDE RECORDS SUMMARY | 2021-11-06 20:44 | XMS_ITS | Encounter Summary ---
:1975 Author Organization [employer] Address [address] [place] [address] Care Team Providers Name Role Phone Gabrielgianlucafawn Anabell Sy DO Primary Care Provider Reason for Visit Reason Comments FOLLOW-UP,HIV Encounter Details Date Type Department Care Team Description 03/14/2016 Office Visit [facility] Mike Hicks omatic human 401 Infectious T, immunodeficiency virus Disease [address] (HIV) infection status [address] [place], [place] (HRC) (Primary Dx) [place] [phone] Social History Tobacco Use Types Packs/Day Years [...] Sign Reading Time Taken Comments Blood Pressure 106/69 03/14/2016 9:17 AM POULTRY SERVICE TECHNICIAN Pulse 77 03/14/2016 9:17 AM POULTRY SERVICE TECHNICIAN Temperature - - Respiratory Rate - - Oxygen Saturation - - Inhaled Oxygen Concentration - - Weight 59.4 kg (131 lb) 03/14/2016 9:17 AM POULTRY SERVICE TECHNICIAN Height 170.2 cm (5' 7) 03/14/2016 9:17 AM POULTRY SERVICE TECHNICIAN Body Mass Index 20.52 03/14/2016 9:17 AM POULTRY SERVICE TECHNICIAN documented in this encounter Patient Instructions Patient InstructionsMike Hicks MD - 03/14/2016 9:45 AM CST Follow up in 1 month. No labs needed today. Your prescription was sent to your pharmacy. Please callif you have any side effects or other questions. [phone]. Mike Hicks MD 03/14/2016 TRY SERVICE TECHNICIAN documented in this encounter Progress Notes Mike Hicks MD - 03/14/2016 9:23 AM CST This patient comes in for [...] She has a CD4 count of 272. Her other lab results were discussed with her including her resistance testing. Social history She lives in [place] with her . 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 Theyhave dogs and [...] years ago. 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 Patient Active Problem List Diagnosis ??? S/P hysterectomy ??? Pap test history ??? Screening for HIV (human immunodeficiency virus) ??? Asthma ([facility]) Family history Her grandmother had amyotrophic lateral sclerosis. Her father is going through treatment for multiple myeloma. Her mother has depression. BP 106/69 mmHg Pulse 77 Ht 5' 7 (1.702 m) Wt 131 lb (59.421 kg) BMI 20.51 kg/m2 Pt A, in NAD answering questions appropriately LABS: HIV fourth-generation test positive HIV confirmation positive HIV mutation analysis negative HIV integrase genotype negative Toxoplasma serology negative CMV serology positive Tuberculosis gold negative Hep C negative Hep B immune Hep A immune Component Latest Ref Rng 02/20/2016 HIV Interpretation NDET Detected (A) HIV Copies per/ml 36416 HIV Log Copies/ml 4.59 Component Latest Ref Rng 02/20/2016 HIV Interpretation NDET Detected (A) HIV Copies per/ml 88022 HIV Log Copies/ml 4.59 Component Latest Ref [...] discuss the natural history of HIV. She is willing to begin therapy for HIV. I will begin therapy with genvoya. We have discussed this medication. She is on climara which can have a drug interaction, but she is not using this for control she has had a hysterectomy. She will monitor for any side effects with the new treatment. I would like to see her in one month. PLAN: Begin treatment with genvoya Monitor for any side effects Follow-up in one month Mike Hicks MD 03/14/2016 TRY SERVICE TECHNICIAN documented in this encounter Plan of Treatment Not on filedocumented as of this encounter Visit Diagnoses Diagnosis Asymptomatic human immunodeficiency viru s (HIV) infection status (HRC) - Primary Asymptomatic human immunodeficiency viru s (HIV) infection status documented in this encounter Care Teams Sales Representative Malt Liquors Relationship Specialty Start Date End Date Anabell Fisher DO PCP - General Family Practice 02/14/16 11/30/17 [address] [place] [address] documented as of this encounter
--- OUTSIDE RECORDS SUMMARY | 2021-11-06 20:45 | XMS_ITS | Encounter Summary ---
:1975 Author Organization [facility] Address [address] [place] [address] Care Team Providers Name Role Phone Unassigned, Provider Primary Care Provider Unavailable Encounter Details Date Type Department Care Team Description 01/05/2004 Supervisor Purification Only [facility] Samantha Whyte er, MEDICINE [address] [address] [address] [place], [place] [phone] (Wo rk) Social History Tobacco Use Types Packs/Day Years Used Date Smoking Tobacco: Never Assessed Alcohol Habits Answer Date Recorded How often do you have a drink containing 4 or more times a w [place] 02/01/2020 alcohol? How many drinks containing alcohol do you have Not asked on a typical day when you are drinking? How often do you have six or more drinks on one Not asked occasion? Comment: Not asked Sex Assigned at Date Recorded Not on file documented as of this encounter Progress Notes Samantha Whyte MD - 01/05/2004 12:01 AM CST letter sent, advised 10d course Provera to see if can induce menses. may be candidate for OCP's pending provera challenge. CAL OFFICE ASSISTANT INSTRUCTOR documented in this encounter Plan of Treatment Not on filedocumented as of this encounter Visit Diagnoses Not on filedocumented in this encounter Care Teams Software Security Architect Relationship Specialty Start Date End Date Unassigned, Provider PCP - General 11/05/99 03/06/[address] [place] [address] documented as of this encounter
--- OUTSIDE RECORDS SUMMARY | 2021-11-06 20:45 | XMS_ITS | Encounter Summary ---
:1975 Author Organization [facility] Address [address] [place] [address] Care Team Providers Name Role Phone No Primary/Referring, Phy Primary Care Provider Unavailable Reason for Visit Reason Comments Vaginal Itching Encounter Details Date Type Department Care Team Description 03/28/2015 Office Visit [facility] Varsha Pritchett, INTENSIVE CARE SPECIALIST, ASSISTANT ACCOUNT EXECUTIVE Acute vaginitis and Gynecology Monica Lorenzo MD [address] [place] [phone] (Primary Dx) [address] [place], [place] [address] Social History Tobacco Use Types Packs/Day Years Used Date Smoking Tobacco: Never Alcohol Habits Answer Date Recorded How often do you have a drink containing 4 or more times a w [place] 02/01/2020 alcohol? How many drinks containing alcohol do you have Not asked on a typical day when you are drinking? How often do you have six or more drinks on one Not asked occasion? Comment: Not asked Sex Assigned at Date Recorded Not on file documented as of this encounter Last Filed Vital Signs Vital Sign Reading Time Taken Comments Blood Pressure 118/77 03/28/2015 3:48 PM MAGNETIC RESONANCE TECHNOLOGIST Pulse 67 03/28/2015 3:48 PM MAGNETIC RESONANCE TECHNOLOGIST Temperature - - Respiratory Rate - - Oxygen Saturation - - Inhaled Oxygen Concentration - - Weight 59.5 kg (131 lb 4 oz) 03/28/2015 3:48 PM MAGNETIC RESONANCE TECHNOLOGIST Height 170.2 cm (5' 7) 03/28/2015 3:48 PM MAGNETIC RESONANCE TECHNOLOGIST Body Mass Index 20.56 03/28/2015 3:48 PM MAGNETIC RESONANCE TECHNOLOGIST documented in this encounter Patient Instructions Patient InstructionsMonica Lorenzo MD - 03/28/2015 4:06 PM CST 1. You will be informed regarding the results of your testing today. 2. Start taking Calcium and vitamin D supplements (Womens one a day multivitamin). 3. Start using probiotics as needed to prevent future yeast infections. ETIC RESONANCE TECHNOLOGIST documented in this encounter Progress Notes Monica Lorenzo MD - 03/28/2015 4:51 PM CST Patient is a pleasant 40-year-old female who presents for evaluation regarding possible yeast infection. Patient reports that she noticed symptoms of vaginal itching. Not so much a discharge. She did use OTC monistat which provided some relief. No odor. History of hysterectomy 4 years ago in [place] for chronic pelvic pain and endometriosis. Also had her ovaries removed. Was placed on HRT patch, but discontinued it on her own. Denies current symptoms. Has not been taking Calcium and Vitamin D supplementation. Filed Vitals: 03/28/15 1548 BP: 118/77 Pulse: 67 General: NAD. Pelvic: On speculum exam, white d/c noted. Vaginal vault otherwise intact, no cervix. Wet prep obtained. Bimanual exam unremarkable. A/P. 1. Suspected yeast infection - wet prep obtained. Patient will be informed of the results and further management. Advised to use probiotics to help restore vaginal pH. Also advised to take OTC Ca/Vit D supplementation. 2. History of hysterectomy/BSO secondary to endometriosis - advised to start using HRT for bone health. Script for HRT patch provided. All questions/concerns addressed. Follow up for routine annual examinations or earlier as needed. Monica Lorenzo MD 03/28/2015, 4:57 PM ETIC RESONANCE TECHNOLOGIST documented in this encounter Plan of Treatment Not on filedocumented as of this encounter Procedures Procedure Name Priority Date/Time Associated Diagnosis Comme nts VAGINAL WET PREP Waiting 03/28/2015 4:42 PM Acute vaginitis Re sults for this MAGNETIC RESONANCE TECHNOLOGIST procedure are i n the results section. documented in this encounter Results (ABNORMAL) [facility] ONLY - Wet Prep, Vaginal (03/28/2015 4:42 PM MAGNETIC RESONANCE TECHNOLOGIST) [facility] gist Method Time Signature Clue Cells Clue Cells NCLUE [facility] Present (A) [facility] Trichomonas No Trichomonas NTRIC [facility] Seen [facility] Yeast No Yeast Found YN [facility] pH >5.5 (H) 3.5 - 4.5 [facility] Specimen Anatomical Collection Method Collection Time Receive d Time (Source) Location / / Volume Laterality 03/28/2015 4:42 PM 6 4:43 MAGNETIC RESONANCE TECHNOLOGIST PM MAGNETIC RESONANCE TECHNOLOGIST Narrative [facility] - 03/28/2015 4:[address] Performed at [facility], [address] [place] [phone] Monica Lorenzo MD LAB_1 Performing Organization Address City/State/ZIP Code Phon e Number [facility] [phone] documented in this encounter Visit Diagnoses Diagnosis Acute vaginitis - Primary Vaginitis and vulvovaginitis, unspecifie d documented in this encounter Care Teams Home Energy Consultant Relationship Specialty Start Date End Date No Primary/Referring, Phy PCP - General 03/07/15 documented as of this encounter
--- OUTSIDE RECORDS SUMMARY | 2021-11-06 20:45 | XMS_ITS | Encounter Summary ---
:1975 Author Organization [facility] Address [address] [place] [address] Care Team Providers Name Role Phone Unassigned, Provider Primary Care Provider Unavailable Encounter Details Date Type Department Care Team Description 08/17/1996 PN Conversion Only SPIRITISM CONVERSION Jerry Aparicio MD Social History Tobacco Use Types Packs/Day Years [...] on filedocumented in this encounter Care Teams Barrer And Tacker Relationship Specialty Start Date End Date Unassigned, Provider PCP - General 11/05/99 03/06/[address] [place] [address] documented as of this encounter
--- OUTSIDE RECORDS SUMMARY | 2021-11-06 20:45 | XMS_ITS | Encounter Summary ---
:1975 Author Organization [facility] Address [address] [place] [address] Care Team Providers Name Role Phone Unassigned, Provider Primary Care Provider Unavailable Encounter Details Date Type Department Care Team Description 12/18/2003 Office Visit [facility] [address] [place] [address] [address] [place], [address] Social History Tobacco Use Types Packs/Day Years Used Date Smoking Tobacco: Never Assessed Alcohol Habits Answer Date Recorded How often do you have a drink containing 4 or more times a w [place] 02/01/2020 alcohol? How many drinks containing [...] on filedocumented in this encounter Care Teams Golf Ball Inspector Relationship Specialty Start Date End Date Unassigned, Provider PCP - General 11/05/99 03/06/[address] [place] [address] documented as of this encounter
--- OUTSIDE RECORDS SUMMARY | 2021-11-06 20:45 | XMS_ITS | Encounter Summary ---
:1975 Author Organization [facility] Address [address] [place] [address] Care Team Providers Name Role Phone Unassigned, Provider Primary Care Provider Unavailable Encounter Details Date Type Department Care Team Description 04/09/1999 PN Conversion Only EPISCOPALIAN CONVERSION Jerry Aparicio MD Social History Tobacco [...] Procedure Name Priority Date/Time Associated Comments Diagnosis SEXUALLY TRANSMITTED Routine 04/09/1999 6:52 PM R esults for this DISEASE PROBE CLOTH WINDER MACHINE OPERATOR procedure are in the results section. documented in this encounter Results Sexually Transmitted Disease Probe (04/09/1999 6:52 PM CLOTH WINDER MACHINE OPERATOR) [facility] Method Time Signature Sexually SEE TEXT [facility] CONVERSION Transmitted Disease Probe Comment: Patient: HUGO YOUSIF Sexually Trans Disease Probe @ ?Collected: ??[id number] ??[id number] Source: CERVIX ?Processed: ??[id number] ??[id number] Final Report ------ ?[id number] ??[id number] Negative for Chlamydia trachomatis by DN A probe Negative for Neisseria gonorrhoeae by DN A probe @ = Sexually Trans Disease Probe Perform ed at ??[address] ?[place] [address] Specimen (Source) Anatomical Collection Method Collection Time Re ceived Time Location / / Volume Laterality 04/09/1999 6:52 PM CLOTH WINDER MACHINE OPERATOR Jerry Aparicio MD LAB_1 Performing Organization Address City/State/ZIP Code Phon e Number [facility] CONVERSION documented in this encounter Visit Diagnoses Not on filedocumented in this encounter Care Teams Relationship Management Lead Relationship Specialty Start Date End Date Unassigned, Provider PCP - General 11/05/99 03/06/15 [address] [place] [address] documented as of this encounter
--- OUTSIDE RECORDS SUMMARY | 2021-11-06 20:45 | XMS_ITS | Encounter Summary ---
:1975 Author Organization [facility] Address [address], [place] [address] Care Team Providers Name Role Phone Unassigned, Provider Primary Care Provider Unavailable Encounter Details Date Type Department Care Team Description 12/21/2002 PN Conversion Only [place] [facility] [address] [place] [address] Social History Tobacco Use Types Packs/Day Years [...] on filedocumented in this encounter Care Teams Butter Melter Relationship Specialty Start Date End Date Unassigned, Provider PCP - General 11/05/99 03/06/[address] [place] [address] documented as of this encounter
--- OUTSIDE RECORDS SUMMARY | 2021-11-06 20:45 | XMS_ITS | Encounter Summary ---
:1975 Author Organization [facility] Address [address], [place] [address] Care Team Providers Name Role Phone Unassigned, Provider Primary Care Provider Unavailable Encounter Details Date Type Department Care Team Description 12/12/2003 Office Visit Sergio Sams MD [facility] [address] [place] [address] [address] [place] [address] [place], [place] [id number] (Wo rk) Social History Tobacco Use Types Packs/Day Years Used Date Smoking Tobacco: Never Assessed Alcohol Habits Answer Date Recorded How often do you have a drink containing 4 or more times a w [place] 02/01/2020 alcohol? How many drinks containing alcohol do you have Not asked on a typical day when you are drinking? How often do you have six or more drinks on one Not asked occasion? Comment: Not asked Sex Assigned at Date Recorded Not on file documented as of this encounter Progress Notes Sergio Ohara MD - 12/12/2003 12:01 AM CST NAME: HUGO YOUSIF MR: [id number] ACCT: [id number] VISIT: [id number] DICTATING CLINICIAN: SERGIO OHARA MD JOB: [id number] CLINIC PROGRESS NOTE DATE OF VISIT: 12/12/2003 SUBJECTIVE: : 1975. A 28-year-old female here for general checkup. Has a small growth on her left lower eyelid that she would like removed as it is getting a bit bigger and is something she can feel. Also has not had a regular period for over a year. She had been on Depo-Provera intermittently which had associated amenorrhea, but has now been off of it for 2 years. She had occasional spotting during the first year off of it but none since. Is using a topical progesterone cream recently, 3 weeks on, 1 week off, which has not induced menses. She had menarche in 8th grade and menses were regular up until her use of Depo-Provera. ADDITIONAL PAST MEDICAL HISTORY: Asthma. Needs renewal of albuterol. Uses this 0-3 times a week, often when riding horses or sometimes socially. Feels that the stress may be a trigger. FAMILY HISTORY: Paternal grandparents with heart disease. SOCIAL HISTORY: Patient is single, no children. 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 No tobacco. Occasional social alcohol. Exercise is regular with dancing or horseback riding. REVIEW OF SYSTEMS: Complete review obtained. Please see form. Church Supervisor: Absence of menses as above. Not sexually active. No STD concerns. Does not do regular BSE's. Immunizations: Due for her 3rd hepatitis B. CURRENT MEDICATIONS: As per LastWord. ADR/ALLERGIES: PER [facility]. OBJECTIVE: VS: BP: 84/60. Ht: 5 ft 7 in. Wt: 133. Pleasant female in no distress. SKIN: No lesions, uses sunscreen. HEENT: Pupils are equal and reactive. Fundi: No lesions. NECK: No masses or adenopathy. CHEST: Clear to A and P. HEART: Regular rhythm, no murmurs or gallops. BREASTS: No masses. Axillae: No adenopathy. ABDOMEN: Soft, nontender. No masses or organomegaly. PELVIC: Cervix normal in appearance. Pap smear obtained. Bimanual: No uterine or adnexal masses. EXTREMITIES: DTRs are 1+ and symmetric. Note that there is a small skin tag on the lower left eyelid. ASSESSMENT: 1. Enlarging skin tag, left lower lid. Referred to ophthalmology for removal. 2. Secondary amenorrhea, question if it may still be related to Depo-Provera, though need to rule out other causes due to the duration of the problem. Will check CBC, TSH, prolactin, FSH, LH, and if normal, will give progesterone challenge. 3. Asthma. Albuterol renewed and if needing it more frequently than 2-3 times a week, advised use of a preventive inhaler, such as Advair, and she will get back to me on this. 4. Health care maintenance. Lab work is current. Hepatitis B #3. PLAN: See assessment. FINAL IMPRESSION: Updated physical exam. LPM:[id number] C: 12/13/03 13:03 DOCUMENT: [id number] IFIED PROFESSIONAL MIDWIFE documented in this encounter Plan of Treatment Not on filedocumented as of this encounter Visit Diagnoses Not on filedocumented in this encounter Care Teams Insulation Cupola Operator Relationship Specialty Start Date End Date Unassigned, Provider PCP - General 11/05/99 03/06/[address] [place] [address] documented as of this encounter
--- OUTSIDE RECORDS SUMMARY | 2021-11-06 20:45 | XMS_ITS | Encounter Summary ---
:1975 Author Organization [facility] Address [address] [place] [address] Care Team Providers Name Role Phone Unassigned, Provider Primary Care Provider Unavailable Encounter Details Date Type Department Care Team Description 12/12/2003 PN Conversion Only ARLIN GUZMAN N Samantha Whyte, [address] [place] [address] [address] [facility] [place] [address] [place] [address] (Wo rk) Social History Tobacco Use Types [...] Procedure Name Priority Date/Time Associated Comments Diagnosis THYROID STIMULATING Routine 12/12/2003 3:29 PM Re sults for this HORMONE HAND STRAIGHTENER procedure are i n the results section. COMPLETE BLOOD COUNT Routine 12/12/2003 3:29 PM R esults for this W/3DIFF HAND STRAIGHTENER procedure are i n the results section. HCG,QUALITATIVE, Routine 12/12/2003 3:29 PM Resul ts for this SERUM HAND STRAIGHTENER procedure ar e in the results section. PROLACTIN Routine 12/12/2003 3:29 PM Results f or this HAND STRAIGHTENER procedure are i n the results section. LH Routine 12/12/2003 3:29 PM Results f or this HAND STRAIGHTENER procedure are i n the results section. FSH Routine 12/12/2003 3:29 PM Results f or this HAND STRAIGHTENER procedure are i n the results section. ANATOMICAL PATH Routine 12/12/2003 1:20 PM Result s for this LIQUID BASED HAND STRAIGHTENER procedure are i n the results section. documented in this encounter Results Complete Blood Count W/3Diff (12/12/2003 3:29 PM HAND STRAIGHTENER) [facility] Method Time Signature White Blood Cell 7.3 3.8 - 11.0 HP CONVERSIO N Count K/cmm Red Blood Cell 4.87 3.70 - HP CONVERSION Count 5.20 m/cmm Hemoglobin 13.8 11.8 - HP CONVERSION 15.5 gm/dL Hematocrit 41.5 35.0 - HP CONVERSION 46.0 % Mean Corpuscular 85.3 80.0 - HP CONVERSION Volume 100.0 fl Mean Corpuscular 28.3 27.0 - HP CONVERSION Hemoglobin 34.0 pg Mean Corpuscular 33.3 32.0 - HP CONVERSION Hemoglobin Conc 36.5 gm/dL [place] RDW 13.6 11.0 - HP CONVERSION 15.0 % Platelet Count 242 140 - 450 HP CONVERSION k/cmm Differential Auto-Dif No normal HP CONVERSION Verify range Granulocyte 4.6 2.0 - 7.5 HP CONVERSION Absolute K/u Comment: Absolute granulocytes=combined absolute number of neutrophils, eosinophils and basophils. % Granulocytes 63.1 50.0 - 83.0 % HP CONVERSI ON Comment: Percent Granulocytes=combined percentage of neutrophils, eosinophils and basophils. Lymphocyte % 27.8 20.0 - 40.0 % HP CONVERSION Monocyte 9.1 5.0 - 14.0 % HP CONVERSION Comment: See physician copy for explanat ion of granulocyte # and % values. Specimen (Source) Anatomical Collection Method Collection Time Re ceived Time Location / / Volume Laterality 12/12/2003 3:29 PM HAND STRAIGHTENER Samantha Whyte MD LAB_1 Performing Organization Address City/State/ZIP Code Phon e Number HP CONVERSION HCG, Qualitative, Serum (12/12/2003 3:29 PM HAND STRAIGHTENER) [facility] Method Time Signature Serum Negative No normal HP CONVERSION Test range Comment: The sensitivity of this assay is 25 mIU/ mL. This test can detect as early as 10-12 days after conception. It may be positive before a first missed menses. A negative result does no t rule out an early . Specimen (Source) Anatomical Collection Method Collection Time Re ceived Time Location / / Volume Laterality 12/12/2003 3:29 PM HAND STRAIGHTENER Samantha Whyte MD LAB_1 Performing Organization Address [facility]/ZIP Code Phon e Number HP CONVERSION Prolactin (12/12/2003 3:29 PM HAND STRAIGHTENER) P athologist Signature Prolactin 5.5 2.8 - 29.2 HP CONVERSION ng/mL Specimen (Source) Anatomical Collection Method Collection Time Re ceived Time Location / / Volume Laterality 12/12/2003 3:29 PM HAND STRAIGHTENER Samantha Whyte MD LAB_1 Performing Organization Address [facility] Code Phon e Number HP CONVERSION Thyroid Stimulating Hormone (12/12/2003 3:29 PM HAND STRAIGHTENER) P athologist Signature Thyroid 1.55 0.20 - HP CONVERSION Stimulating 5.50 Hormone uIU/mL Specimen (Source) Anatomical Collection Method Collection Time Re ceived Time Location / / Volume Laterality 12/12/2003 3:29 PM HAND STRAIGHTENER Samantha Whyte MD LAB_1 Performing Organization Address [facility] Code Phon e Number HP CONVERSION FSH (12/12/2003 3:29 PM HAND STRAIGHTENER) P athologist Signature Follicle 7.3 mIU/mL HP CONVERSION Stimulating Hormone Comment: ? FSH Value(mIU/mL) Normally Menstruating Females ?Range -Follicular Phase ?3.6 - 16.0 -Mid-Cycle Peak ?3.4 - 33.0 -Luteal Phase ?1.5 - 9.1 Postmenopausal Females ?22.9 - 167 Specimen (Source) Anatomical Collection Method Collection Time Re ceived Time Location / / Volume Laterality 12/12/2003 3:29 PM HAND STRAIGHTENER Samantha Whyte MD LAB_1 Performing Organization Address City/State/ZIP Code Phon e Number HP CONVERSION LH (12/12/2003 3:29 PM HAND STRAIGHTENER) athologist Signature Lh 4 mIU/mL HP CONVERSION Comment: ?LH Value (mIU/mL) Female: ? Range Normally Ovulating Females -Follicular Phase ? 2-13 -Mid-Cycle Peak ? 9-76 -Luteal Phase ? 0.5-17 Postmenopausal Females ? 5-52 Specimen (Source) Anatomical Collection Method Collection Time Re ceived Time Location / / Volume Laterality 12/12/2003 3:29 PM HAND STRAIGHTENER Samantha Whyte MD LAB_1 Performing Organization Address City/State/ZIP Code Phon e Number HP CONVERSION Pap Smear (12/12/2003 1:20 PM HAND STRAIGHTENER) [facility] gist Method Time Signature PAP Smear SEE TEXT No normal HP CONVERSION Liquid Based range Comment: Patient: HUGO YOUSIF ? CERVICAL CYTOLOGY REPORT Pathology # ??[id number] ?Date Obtained: ? Date Received: CYTOLOGIC IMPRESSION: Negative for intraepithelial lesion or m alignancy. ? PASCALE TIONAL DATA LMP: CLINICAL HIST LIQUID BASED PAP CERVICAL SPECIMEN ADEQUACY: ?? Satisfactory. ENDOCERVICAL CELLS: ??Present. Verified 12/19/03 by: ??SN ? (electronic signature) Specimen (Source) Anatomical Collection Method Collection Time Re ceived Time Location / / Volume Laterality 12/12/2003 1:20 PM HAND STRAIGHTENER Samantha Whyte MD LAB_1 Performing Organization Address City/State/ZIP Code Phon e Number HP CONVERSION documented in this encounter Visit Diagnoses Not on filedocumented in this encounter Care Teams Hemodialysis Charge Nurse Relationship Specialty Start Date End Date Unassigned, Provider PCP - General 11/05/99 03/06/15 [address] [place] [address] documented as of this encounter
--- OUTSIDE RECORDS SUMMARY | 2021-11-06 20:45 | XMS_ITS | Encounter Summary ---
:1975 Author [facility] Address [address] [place] [address] Care Team Providers Name Role Phone Unassigned, Provider Primary Care Provider Unavailable Reason for Visit Reason Comments Other Encounter Details Date Type Department Care Team Description 12/12/2003 Telephone [facility] [address] In[address] Christopher RN Other Ophthalmology [facility] [address] [address] [place] [address] [place] [address] [phone] Social History Tobacco Use Types Packs/Day Years Used Date Smoking Tobacco: Never Assessed Alcohol Habits Answer Date Recorded How often do you have a drink containing 4 or more times a w [place] 02/01/2020 alcohol? How many drinks containing alcohol do you have Not asked on a typical day when you are drinking? How often do you have six or more drinks on one Not asked occasion? Comment: Not asked Sex Assigned at Date Recorded Not on file documented as of this encounter Progress Notes Meir Christopher, GARETH - 12/12/2003 3:48 PM CST Referred by Dr. Whyte's office for removal skin tag LLL; spoke with patient; it is there x 1 yr but getting larger and sthe can feel it when she blinks. Scheduled with MURIEL 12/18/03. Created on [id number] 3:48pm by MEIR CHRISTOPHER ER BOX OPERATOR documented in this encounter Plan of Treatment Not on filedocumented as of this encounter Visit Diagnoses Not on filedocumented in this encounter Care Teams Director Education Relationship Specialty Start Date End Date Unassigned, Provider PCP - General 11/05/99 03/06/[address] [place] [address] documented as of this encounter
--- OUTSIDE RECORDS SUMMARY | 2021-11-06 20:45 | XMS_ITS | Encounter Summary ---
:1975 Author Organization [facility] Address [address] [place] [address] Care Team Providers Name Role Phone No Primary/Referring, Phy Primary Care Provider Unavailable Reason for Visit Reason Comments ITCHING, VAGINAL has happened 4X's this year. Encounter Details Date Type Department Care Team Description 07/20/2015 Office Visit [facility] Anabell Fisher Yea st vaginitis (Primary Dx); Practice DO Vaginal itching; [address] Screening for malignant neop lasm of cervix [place], [place] [address] [phone] [place] [address] Social History Tobacco Use Types Packs/Day Years Used Date Smoking Tobacco: Never Alcohol Use Standard Drinks/Week Comments Yes 0 (1 standard drink = 0.6 oz pure alcoho l) occ Alcohol Habits Answer Date Recorded How often do you have a drink containing 4 or more times a w [place] 02/01/2020 alcohol? How many drinks containing alcohol do you have Not asked on a typical day when you are drinking? How often do you have six or more drinks on one Not asked occasion? 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 Vaginal Yeast Infection: Care Instructions Your Care Instructions A vaginal yeast infection is caused by too many yeast cells in the vagina. This is common in women of all ages. Itching, vaginal discharge and irritation, and other symptoms can bother you. But yeast infections don't often cause other health problems. Some medicines can increase your risk of getting a yeast infection. These include antibiotics, birthcontrol pills, hormones, and steroids. You may also be more likely to get a yeast infection if you are , have diabetes, douche, or wear tight clothes. With treatment, most yeast infections get better in 2 to 3 days. Follow-up care is a lee part of [...] are having a problemwith your medicine. ?? Ask your doctor about jujn-ctd-[id number] (OTC) medicines for yeast infections. They may cost less than prescription medicines. If you use an OTC treatment, read and follow all instructions on the label. ?? Do not use tampons while using a vaginal cream or suppository. The tampons can absorb the medicine. Use pads instead. ?? Wear loose cotton clothing. Do not wear nylon or other fabric that holds body heat and moisture close to the skin. ?? Try sleeping without underwear. ?? Do not scratch. Relieve itching with a cold pack or a cool bath. ?? Do not wash your vaginal area more than once a day. Use plain water or a mild, unscented soap. Air-dry the vaginal area. ?? Change out of wet swimsuits after swimming. ?? Do not have sex until you have finished your treatment. ?? Do not douche. When should you call for help? Call your doctor now or seek immediate medical care if: ?? You have unexpected vaginal bleeding. ?? You have new or increased pain in your vagina or pelvis. Watch closely for changes in your health, and be sure to contact your doctor if: ?? You have a fever. ?? You are not getting better after 2 days. ?? Your symptoms come back after you finish your medicines. Where can you learn more? Go to [employer] and enter F639 in the search box. Current as of: September 04, 2014 Content Version: 108 ?? [id number] 480 [employer]. documented in this encounter Progress Notes Anabell Fisher MD - 07/20/2015 5:04 PM CDT Quick Note: Discussed at visit. Anabell Fisher DO 07/20/2015, 5:04 PM Anabell iFsher MD - 07/20/2015 3:35 PM CDT SUBJECTIVE Hugo Castillo is a 40 y.o. old female who is a new patient who presents with: Chief Complaint Patient presents with ??? ITCHING, VAGINAL has happened 4X's this year Reports last episode found clue cells and treated with antibiotic and symptoms improved Now recurrence itching and discharge Sexually active with her , no risk factor for STI or history of STI, denies other partners, declines testing Denies recent antibiotic use, shaving in area, bubble baths, soaps, or new medications S/p hysterectomy approx 4 years ago and on estrogen replacement Review of systems: without chest pain or shortness of breath Past medical history: Denies OBJECTIVE BP 118/74 mmHg Pulse 69 Temp(Src) 98 ??F (36.7 ??C) Wt 129 lb 3.2 oz (58.605 kg) General appearance: alert, in no distress Neck: supple Lungs: Clear to auscultation without rales or rhonchi Heart: regular : Female normal vagina and external genitalia, no adnexal tenderness and vaginal discharge present, described as white and creamy RESULTS Recent Results (from the past 336 hour(s)) WET PREP, VAGINAL Collection Time: 07/20/15 3:59 PM Result Value Ref Range CLUE CELLS No Clue Cells Seen NCLUE TRICHOMONAS No Trichomonas Seen NTRIC YEAST Yeast Present (A) YN PH 4.5 3.5 - 4.5 ASSESSMENT/PLAN Diagnoses and all orders for this visit: Vaginal itching; Yeast vaginitis - fluconazole (DIFLUCAN) 150 MG tablet - Wet Prep, Vaginal Screening for malignant neoplasm of cervix - SCR PAP SMER; OBTAIN PREP&CONVY-LAB - Pap Test, Routine - HPV, High Risk Discussed side effects of medications Please see the patient instructions for additional counseling and precautions given Follow-up if persistent or worsening symptoms AVS reviewed together and questions answered Anabell Fisher DO 07/20/2015, 5:26 PM documented in this encounter Plan of Treatment Not on filedocumented as of this encounter Procedures Procedure Name Priority Date/Time Associated Diagnosis Comme nts HPV, HIGH RISK Routine 07/20/2015 4:00 PM Screening for Result s for this CDT malignant neoplasm procedure are in of cervix the results section. PAP TEST, ROUTINE Routine 07/20/2015 4:00 PM Screening for Res ults for this CDT malignant neoplasm procedure are in of cervix the results section. VAGINAL WET PREP Waiting 07/20/2015 3:59 PM Vaginal itching Re sults for this CDT procedure are i n the results section. documented in this encounter Results (ABNORMAL) HPV, High Risk (07/20/2015 4:00 PM CDT) [facility] Method Time Signature HPV RESULT Positive NEG [facility] Comment: Positive for High Risk HPV type s other than 16 or 18 Comments (NOTE) [facility] The Ricardo HPV Test is a qualitative in vitro test for the de tection of Human Papillomavirus in [facility] patient specimens. The t est utilizes amplification of target DNA by Polymerase Chain [place] ction (PCR) and nucleic acid hybridization for the detection of 14 high-risk (HR) HPV types. The assay tests for high risk type s 16, 18, 31, 33, 35, 39, 45, 51, 52, 56, 58, 59, 66 and 68. Testing performed at: This test was developed and its performance characteristics determined by [facility]. ??It has not been cleared or approved by the U.S. Food and Drug Administration. ??The FDA has determined that such clearance or approval is not necessary. ??This test is used for clinical purposes. ??It should not be regar ded as investigational or for research. ??This laboratory is certif ied under the Clinical Laboratory Improvement Amendments of 1988 (CLIA -88) as qualified to perform high complexity testing. Specimen Anatomical Collection Method Collection Time Receive d Time (Source) Location / / Volume Laterality 07/20/2015 4:00 PM 6 4:01 CDT PM CDT Narrative [facility] - 07/25/2015 11:51 AM CDT Performed at [facility] , [address] [place] [address] Anabell Fisher DO LAB_1 Performing Organization Address City/State/[facility] Code Phon e Number [facility] [phone] Pap Test, Routine (07/20/2015 4:00 PM CDT) Component Value Ref Test Analysis Performed At [facility] gist Range Method Time Signature Cytology, (NOTE) [facility] Pap Telephone Installer Cytology Report LABORATORI ES Patient Name: HUGO CASTILLO Taken: 07/20/2015 Received: 07/23/2015 Reported: 07/25/2015 Physician(s): ANABELL FISHER ?Source of Specimen Pap Test, Routine Cervical/Endocervical: ?Specimen Adequacy ?Satisfactory for evaluation. ??Endocervical component absent. ? Final Cytologic Interpretation/Result NEGATIVE FOR INTRAEPITHELIAL LESION OR MALIGNANCY (NILM) ?Other Cytologic Findings ?Fungal organisms morphologically consistent with [place] da spp. *Electronically Signed Out By Anabella Long, ??CT (ASCP)* Anabella Long, ??CT (ASCP) ? Pap Smear History Date of Last Menstrual Period: Hysterectomy ?? Microscopic Description Microscopic examination is performed. [facility] Department of Pathology [address] [place] [id number] Specimen Anatomical Collection Method Collection Time Receive d Time (Source) Location / / Volume Laterality 07/20/2015 4:00 PM 6 CDT 10:25 AM CDT Anabell Fisher DO LAB_1 Performing Organization Address City/[facility]/ZIP Code Phon e Number [facility] [phone] (ABNORMAL) Wet Prep, Vaginal (07/20/2015 3:59 PM CDT) [facility] gist Method Time Signature Clue Cells No Clue Cells NCLUE [facility] Trichomonas No Trichomonas NTRIC [facility] Yeast Yeast Present YN [facility] pH 4.5 3.5 - 4.5 [facility] Specimen Anatomical Collection Method Collection Time Receive d Time (Source) Location / / Volume Laterality 07/20/2015 3:59 PM 6 4:00 CDT PM CDT Narrative [facility] - 07/20/2015 4:10 PM C DT Performed at [facility], [address] [place] [address] Anabell Fisher DO LAB_1 Performing Organization Address City/[facility]/ZIP Code Phon e Number [facility] [phone] documented in this encounter Visit Diagnoses Diagnosis Yeast vaginitis - Primary Candidiasis of vulva and vagina Vaginal itching Pruritus of genital organs Screening for malignant neoplasm of cerv ix Screening for malignant neoplasm of the cervix documented in this encounter Care Teams Brand Specialist Relationship Specialty Start Date End Date No Primary/Referring, Phy PCP - General 03/07/15 documented as of this encounter
--- OUTSIDE RECORDS SUMMARY | 2021-11-06 20:45 | XMS_ITS | Encounter Summary ---
:1975 Author [facility] Address [address] [address] Care Team Providers Name Role Phone Unassigned, Provider Primary Care Provider Unavailable Reason for Visit Reason Comments Other Encounter Details Date Type Department Care Team Description 10/21/2004 Telephone [facility], Message Other [address] [place] [address] Social History Tobacco Use Types Packs/Day Years Used Date Smoking Tobacco: Never Assessed Alcohol Habits Answer Date Recorded How often do you have a drink containing 4 or more times a w [place] 02/01/2020 alcohol? How many drinks containing alcohol do you have Not asked on a typical day when you are drinking? How often do you have six or more drinks on one Not asked occasion? Comment: Not asked Sex Assigned at Date Recorded Not on file documented as of this encounter [facility], Message - 10/21/2004 10:39 AM CDT Pt calling, she is leaving on Thursday, to go to [place] to help with [employer] relief, and they told her that she needs to have a Hep A shot and a Td shot. Please call pt at home [phone] or cell [phone] and let her know if it is ok for her to come in. Last PE 12/12/03. Created on 21Oct2004 10:39am by VIRGIL PALMER On 21Oct2004 12:30pm SERGIO OHARA wrote: ok for hep A. repeat due in 6 mos. last tetanus was in 1999, generally good for 10 yrs, unless they are recommending 5 yrs. Acknowledged by SERGIO OHARA on 12:30pm On 21Oct2004 2:03pm ISAAC ALTMAN wrote: Patient informed OK for Hep A and Td. Acknowledged by ISAAC ALTMAN on 2:03pm [employer] documented in this encounter Plan of Treatment Not on filedocumented as of this encounter Visit Diagnoses Not on filedocumented in this encounter Care Teams Band Head Saw Operator Relationship Specialty Start Date End Date Unassigned, Provider PCP - General 11/05/99 03/06/[address] [place] [id number] documented as of this encounter
--- OUTSIDE RECORDS SUMMARY | 2021-11-06 20:45 | XMS_ITS | Encounter Summary ---
:1975 Author Organization [facility] Address [address] [place] [id number] Care Team Providers Name Role Phone Unassigned, Provider Primary Care Provider Unavailable Encounter Details Date Type Department Care Team Description 04/09/1999 PN Conversion Only CATHOLIC CONVERSION Jerry Aparicio MD Social History Tobacco [...] Name Priority Date/Time Associated Diagnosis Comme nts ANATOMICAL PATH-C Routine 04/09/1999 10:33 AM Res ults for this WEAVE ROOM SUPERVISOR procedure are i n the results section. documented in this encounter Results Anatomical Path-C (04/09/1999 10:33 AM WEAVE ROOM SUPERVISOR) P athologist Signature PAP Smear SEE TEXT No normal HP CONVERSION range Comment: Patient: HUGO RODRIGUEZ ? CERVICAL CYTOLOGY REPORT Pathology # ??[id number] ?Date Obtained: ? Date Received: LMP: ?ON DEPO CLINICAL HIST CERVICAL SMEAR SPECIMEN ADEQUACY: ?? Satisfactory. ENDOCERVICAL CELLS: ??Present. CYTOLOGIC IMPRESSION: Within Normal Limits (Negative). Verified 04/15/99 by: ??MB ? (electronic signature) Specimen (Source) Anatomical Collection Method Collection Time Re ceived Time Location / / Volume Laterality 04/09/1999 10:33 AM WEAVE ROOM SUPERVISOR Jerry Aparicio MD LAB_1 Performing Organization Address City/State/ZIP Code Phon e Number HP CONVERSION documented in this encounter Visit Diagnoses Not on filedocumented in this encounter Care Teams Hydramatic Specialist Relationship Specialty Start Date End Date Unassigned, Provider PCP - General 11/05/99 03/06/[address] [place] [id number] documented as of this encounter
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
--- OUTSIDE RECORDS SUMMARY | 2021-11-06 20:45 | XMS_ITS | Encounter Summary ---
:1975 Author Organization [facility] Address [address] [place] [address] Care Team Providers Name Role Phone Unassigned, Provider Primary Care Provider Unavailable Encounter Details Date Type Department Care Team Description 05/16/1998 PN Conversion Only MORMONISM CONVERSION Jerry Aparicio MD Social History Tobacco [...] Procedure Name Priority Date/Time Associated Comments Diagnosis CONVERSION DEFAULT Routine 05/15/1998 5:54 AM Res ults for this INTERFACE ORDER CDT procedure ar e in the results section. documented in this encounter Results Conversion Default Interface Order (05/15/1998 5:54 AM CDT) P athologist Signature PAP Smear See Detail HP CONVERSION Comment: Patient: HUGO YOUSIF ?CERVICAL CYTOLOGY REPORT Pathology # ??[id number] ?Date Obtained: ?Date Received: LMP: CLINICAL HIST ? DEPO PROV CERVICAL SMEAR SPECIMEN ADEQUACY: ?? Satisfactory. ENDOCERVICAL CELLS: ??Present. CYTOLOGIC IMPRESSION: Within Normal Limits (Negative). Verified 05/22/98 by: ??ARC ?(electronic signature) Specimen (Source) Anatomical Collection Method Collection Time Re ceived Time Location / / Volume Laterality 05/15/1998 5:54 AM CDT Jerry Aparicio MD LAB_1 Performing Organization Address City/State/ZIP Code Phon e Number HP CONVERSION documented in this encounter Visit Diagnoses Not on filedocumented in this encounter Care Teams Driller Portable Relationship Specialty Start Date End Date Unassigned, Provider PCP - General 11/05/99 03/06/[address] [place] [address] documented as of this encounter
--- OUTSIDE RECORDS SUMMARY | 2021-11-06 20:45 | XMS_ITS | Encounter Summary ---
:1975 [facility] Address [address], [place] [address] Care Team Providers Name Role Phone No Primary/Referring, Phy Primary Care Provider Unavailable Reason for Referral Therapies (Routine) - Closed Specialty Diagnoses / Procedures Referred By Contact Refer red To Contact Diagnoses Low back pain (HRC) Debi Gama MD [address] [place], [place] [address] Referral ID Status Reason Start Date Expiration Date Visits Requ ested Visits Authorized [id number] Closed 03/08/2015 05/07/2015 1 1 Scheduling Instructions If scheduling assistance is needed, plea se inquire with the medical office staff upon exiting your appointment or contact the ordering clinic for recommended locations. This recommended service/s may not be co dinorah by your insurance coverage. To find out your specific benefit coverage, please c all the number on your insurance card. BEAUTICIAN Procedure/Equipment (Routine) - Incomplete Specialty Diagnoses / Procedures Referred By Contact Refer red To Contact Diagnoses Low back pain (HRC) Debi Gama MD Procedures XR SACRUM/COCCYX [address] [place], [place] [address] Referral ID Status Reason Start Date Expiration Date Visits V isits Requested Authorized [id number] Incomplete 03/08/2015 1 1 BEAUTICIAN Reason for Visit Reason Comments Tailbone Pain since summer Encounter Details Date Type Department Care Team Description 03/08/2015 Office Visit [facility] Debi Gama MD Low back pain (HRC) Practice [address] (Primary Dx) [address] [place], [place] [phone] Social History Tobacco Use Types Packs/Day Years [...] Sign Reading Time Taken Comments Blood Pressure 110/73 03/08/2015 10:16 AM DOG BEAUTICIAN Pulse 73 03/08/2015 10:16 AM DOG BEAUTICIAN Temperature 36.8 ??C (98.2 ??F) 03/08/2015 10:16 AM DOG BEAUTICIAN Respiratory Rate 14 03/08/2015 10:16 AM DOG BEAUTICIAN Oxygen Saturation - - Inhaled Oxygen Concentration - - Weight 58.2 kg (128 lb 3.2 oz) 03/08/2015 10:16 AM DOG BEAUTICIAN Height - - Body Mass Index - - documented in this encounter Patient Instructions Patient InstructionsKDebi wetzel MD - 03/08/2015 11:01 AM CST Physical therapy Ice packs Tylenol 500-1000 mg 3 times a day as needed Follow-up in 4-6 weeks or sooner if there is indication BEAUTICIAN documented in this encounter Progress Notes Debi Gama MD - 03/08/2015 10:28 AM CST S: Cristiana Castillo is a 40 y.o. old female came in with lower back pain for several months without trauma or injury but patient does horse riding as a hobby and she does notice more pain at that time, sitting for prolonged does make it worse, pain does not radiate, no numbness, tingling or weakness, nobowel or bladder issues Review of Systems There is no problem list on file for this patient. Current Outpatient Prescriptions Medication Sig ??? LORATADINE OR History Social History ??? Marital Status: N/A Spouse Name: N/A Number of Children: N/A ??? Years of Education: N/A Occupational History ??? Not on file. Social History Main Topics ??? Smoking status: Never Smoker ??? Smokeless tobacco: Not on file ??? Alcohol Use: Not on file ??? Drug Use: Not on file ??? Sexual Activity: Not on file Other Topics Concern ??? Not on file Social History Narrative ??? No narrative on file O: BP 110/73 mmHg Pulse 73 Temp(Src) 98.2 ??F (36.8 ??C) (Oral) Resp 14 Wt 128 lb 3.2 oz (58.151 kg) Physical exam : Gen :Alert and oriented ,NAD . Chest :clear to auscultation bilateraly . CVS :RRR,no murmmer . Back: Lower spinal tenderness mainly at sternal area Neurologic :nofocal . A/P: Low back pain likely mechanical X-ray was negative Plan: Physical therapy Ice packs Tylenol 500-1000 mg 3 times a day as needed Follow-up in 4-6 weeks or sooner if there is indication Debi Gama MD BEAUTICIAN documented in this encounter Plan of Treatment Scheduled Referrals Name Type Priority Associated Diagnoses Order S [facility] PHYSICAL THERAPY Referral Routine Low back pain (HRC) Orde red: 03/08/2015 documented as of this encounter Results XR SACRUM/COCCYX (03/08/2015 10:43 AM DOG BEAUTICIAN) Anatomical Region Laterality Modality Spine, Pelvis Computed Radiography Specimen (Source) Anatomical Collection Method Collection Time Re ceived Time Location / / Volume Laterality 03/08/2015 10:43 AM DOG BEAUTICIAN Narrative 03/08/2015 1:40 PM DOG BEAUTICIAN XR SACRUM/COCCYX 03/08/2015 10:43 AM INDICATION: Sacral pain. Initial encount er COMPARISON: None. FINDINGS: Negative sacrum. No fracture. Procedure Note Pal Dickinson MD - 03/08/2015Form atting of this note might be different from the original. XR SACRUM/COCCYX 03/08/2015 10:43 AM INDICATION: Sacral pain. Initial encount er COMPARISON: None. FINDINGS: Negative sacrum. No fracture. Debi SILVA documented in this encounter Visit Diagnoses Diagnosis Low back pain (HRC) - Primary Lumbago Low back pain (HRC) Lumbago documented in this encounter Care Teams Sports Announcer Relationship Specialty Start Date End Date No Primary/Referring, Phy PCP - General 03/07/15 documented as of this encounter
--- OUTSIDE RECORDS SUMMARY | 2021-11-06 20:45 | XMS_ITS | Encounter Summary ---
:1975 Author Organization [facility] include [facility] beds at the [facility] Address [address] [place] [address] Care Team Providers Name Role Phone Unassigned, Provider Primary Care Provider Unavailable Encounter Details Date Type Department Care Team Description 05/15/1998 PN Conversion Only BUDDHIST CONVERSION Jerry Aparicio MD Social History Tobacco [...] Associated Comments Diagnosis CONVERSION DEFAULT Routine 05/15/1998 6:08 PM Res ults for this INTERFACE ORDER CDT procedure ar e in the results section. documented in this encounter Results Conversion Default Interface Order (05/15/1998 6:08 PM CDT) Analysis Performed At Patho logist Time Signature Sexually CERVIX HP CONVERSION Transmitted Disease Probe Comment: Patient: HUGO GONZALES Sexually Trans Disease Probe @ ?Collected: ??[id number] ??[id number] Source: CERVIX ?Processed: ??[id number] ??[id number] Final Report ----- ? [id number] ??[id number] Negative for Chlamydia trachomatis by D NA probe Negative for Neisseria gonorrhoeae by D NA probe @ = Sexually Trans Disease Probe Perfor med at ??[address] ? [place] [address] Specimen (Source) Anatomical Collection Method Collection Time Re ceived Time Location / / Volume Laterality 05/15/1998 6:08 PM CDT Jerry Aparicio MD LAB_1 Performing Organization Address City/State/ZIP Code Phon e Number HP CONVERSION documented in this encounter Visit Diagnoses Not on filedocumented in this encounter Care Teams Video Production Assistant Relationship Specialty Start Date End Date Unassigned, Provider PCP - General 11/05/99 03/06/[address] [place] [address] documented as of this encounter
--- OUTSIDE RECORDS SUMMARY | 2021-11-06 20:45 | XMS_ITS | Encounter Summary ---
:1975 Author Organization [facility] Address [address] [place] [address] Care Team Providers Name Role Phone Unassigned, Provider Primary Care Provider Unavailable Encounter Details Date Type Department Care Team Description 01/31/1998 PN Conversion Only SABIANISM CONVERSION Jerry Aparicio MD Social History Tobacco [...] Date/Time Associated Comments Diagnosis CONVERSION DEFAULT Routine 01/30/1998 5:40 PM Res ults for this INTERFACE ORDER FIELD MAP EDITOR procedure ar e in the results section. documented in this encounter Results Conversion Default Interface Order (01/30/1998 5:40 PM FIELD MAP EDITOR) P athologist Signature Herpes simplex VAGINA HP CONVERSION Culture Comment: Patient: HUGO BARONE Culture, Herpes simplex @ ? Collected: ??[id number] ??[id number] Source: VAGINAL ? Processed: ??[id number] ??[id number] Final Report ----- ? [id number] ??[id number] Herpes simplex type 1 isolated Performed at [employer] @ = Herpes Culture Performed at ??[facility], [address], ? [place] [address] Specimen (Source) Anatomical Collection Method Collection Time Re ceived Time Location / / Volume Laterality 01/30/1998 5:40 PM FIELD MAP EDITOR Jerry Aparicio MD LAB_1 Performing Organization Address City/State/[facility] Phon e Number HP CONVERSION documented in this encounter Visit Diagnoses Not on filedocumented in this encounter Care Teams Supervisor Cytology Relationship Specialty Start Date End Date Unassigned, Provider PCP - General 11/05/99 03/06/15 [address] [place] [address] documented as of this encounter
--- OUTSIDE RECORDS SUMMARY | 2021-11-06 20:45 | XMS_ITS | Encounter Summary ---
:1975 Author Organization [facility] Address [address], [place] [address] Care Team Providers Name Role Phone No Primary/Referring, Phy Primary Care Provider Unavailable Reason for Visit Procedure/Equipment (Routine) - Incomplete Specialty Diagnoses / Procedures Referred By Contact Refer red To Contact Diagnoses Low back pain (HRC) Debi Gama MD Procedures XR SACRUM/COCCYX [address] [place], [place] [address] Referral ID Status Reason Start Date Expiration Date Visits V isits Requested Authorized [id number] Incomplete 03/08/2015 1 1 Encounter Details Date Type Department Care Team Description 03/08/2015 Imaging [facility] Radiology Low back pain (HRC) [address] [place], [place] [address] Social History Tobacco Use Types Packs/Day Years Used Date Smoking Tobacco: Never Alcohol Habits Answer Date Recorded How often do you have a drink containing 4 or more times a w [place] 02/01/2020 alcohol? How many drinks containing alcohol [...] Priority Date/Time Associated Diagnosis Comme nts XR SACRUM/COCCYX Routine 03/08/2015 10:43 AM Low back pain (HR C) Results for this PLY BANDER procedure are i n the results section. documented in this encounter Results XR SACRUM/COCCYX (03/08/2015 10:43 AM PLY BANDER) Anatomical Region Laterality Modality Spine, Pelvis Computed Radiography Specimen (Source) Anatomical Collection Method Collection Time Re ceived Time Location / / Volume Laterality 03/08/2015 10:43 AM PLY BANDER Narrative 03/08/2015 1:40 PM PLY BANDER XR SACRUM/COCCYX 03/08/2015 10:43 AM INDICATION: Sacral pain. Initial encount er COMPARISON: None. FINDINGS: Negative sacrum. No fracture. Procedure Note Pal Dickinson MD - 03/08/2015Form atting of this note might be different from the original. XR SACRUM/COCCYX 03/08/2015 10:43 AM INDICATION: Sacral pain. Initial encount er COMPARISON: None. FINDINGS: Negative sacrum. No fracture. Debi BARNES GD documented in this encounter Visit Diagnoses Diagnosis Low back pain (HRC) Lumbago documented in this encounter Care Teams Doctor Of Podiatry Relationship Specialty Start Date End Date No Primary/Referring, Phy PCP - General 03/07/15 documented as of this encounter
--- OUTSIDE RECORDS SUMMARY | 2021-11-06 20:45 | XMS_ITS | Encounter Summary ---
:1975 [facility] Address [address], [place] [address] Care Team Providers Name Role Phone Unassigned, Provider Primary Care Provider Unavailable Encounter Details Date Type Department Care Team Description 06/09/2010 PN Conversion Only [facility] Whyte, Samantha Silver er, MEDICINE [address] [address] [address] [place], [place] [address] (Wo rk) Social History Tobacco Use Types [...] on filedocumented in this encounter Care Teams Smoking Pipe Maker Relationship Specialty Start Date End Date Unassigned, Provider PCP - General 11/05/99 03/06/[address] [place] [address] documented as of this encounter
--- OUTSIDE RECORDS SUMMARY | 2021-11-06 20:45 | XMS_ITS | Encounter Summary ---
:1975 Author Organization [facility] Address [address], [place] [address] Care Team Providers Name Role Phone Unassigned, Provider Primary Care Provider Unavailable Encounter Details Date Type Department Care Team Description 10/22/2004 Nursing Visit [facility] Jose L [facility] MD [place] [address] [place] [address] [address] [place] [address] (Wo rk) Social History Tobacco Use Types Packs/Day Years Used Date Smoking Tobacco: Never Assessed Alcohol Habits Answer Date Recorded How often do you have a drink containing 4 or more times a w [place] 02/01/2020 alcohol? How many drinks containing [...] on filedocumented in this encounter Care Teams Sort Operations Supervisor Relationship Specialty Start Date End Date Unassigned, Provider PCP - General 11/05/99 03/06/15 [address] [place] [address] documented as of this encounter
[2021-11-06 21:14] VITALS: PULSE 75; O2SAT 98
--- NOTE | 2021-11-06 22:12 | CRLHL7_ITS ---
For Patients: As a result of the Century Cures Act, medical imaging exams and procedure reports are released immediately into your electronic medical record. You may view this report before your referring provider. If you have questions, please contact your health care provider. Indication: Fall from horse, concern for left sacral alar fracture Technique: CT scan of the pelvis was performed according to the routine protocol without contrast. Please note that all CT scans at this facility use dose modulation, iterative reconstruction, and/or weight-based dosing when appropriate to reduce radiation dose to as low as reasonably achievable. Comparison: Radiograph of same day Findings: No acute displaced fracture or malalignment. Bony mineralization is age appropriate. Joint spaces are maintained. Visualized portions of the intra-abdominal and pelvic organs show no acute process. Impression: No acute displaced fracture or malalignment. Please note that all CT scans at this facility use dose modulation, iterative reconstruction, and/or weight-based dosing when appropriate to reduce radiation dose to as low as reasonably achievable. Dictated by Dillan Diaz MD @ 11/06/2021 10:47:25 PM (Electronically Signed)
[2021-11-06 23:00] VITALS: BP 123/78; PULSE 73; RESP 16; O2SAT 99
[2021-11-07 00:55] VITALS: BP 107/90; PULSE 73; RESP 16; O2SAT 98
== END 2021-11-07 01:08 | disposition home or self-care (01) ==
PROVIDERS: Emergency Provider Family Medicine
DX: S33.8XXA Sprain of other parts of lumbar spine and pelvis, initial encounter (principal); V80.010A Animal-rider injured by fall from or being thrown from horse in noncollision accident, initial encounter
CPT/HCPCS: 72170; 72192; 72220; 96372; 99283; 99284; J1170